=== PATIENT | female | born 1940 | race Caucasian/White ===

== ENCOUNTER 2019-12-14 15:22 | Outpatient (CLI) | payer MEDICARE, SELFPAY ==
--- NOTE | ~2019-12-14 | MR_ITS ---
EXAMINATION: MR abdomen wo/w con DATE: 12/14/2019 15:45 INDICATION: Pancreatic cyst. Abdominal pain. TECHNIQUE: Magnetic resonance imaging (MRI) of the abdomen was performed without and with 15 mL Multi [place] intravenous contrast. Sequences included coronal T2-weighted FS FSE, coronal and axial FS FIEST A, axial T2-weighted FSE, coronal LAVA-flex, axial STIR FSE, axial DWI, axial dual-echo T1-weighted F SPGR, and axial LAVA. Postcontrast sequences included coronal LAVA-flex and a time course of axial LA VA. COMPARISON: Abdomen MRI 12/17/2017, CT abdomen and pelvis 01/25/2017 FINDINGS: The liver and spleen are normal. There are changes of cholecystectomy. There is a 1.7 x 1.3 x 2.0 cm cystic lesion in the head of the pancreas, stable from 01/25/2017. The adrenal glands are normal. Ther e is cortical thinning of right kidney. There are cysts in left kidney measuring up to 9 mm. There ar e no dilated loops of bowel. There are no pathologically enlarged lymph nodes. There is no free intra peritoneal fluid. IMPRESSION: 1. 2.0 cm cystic lesion of the pancreas, stable from 01/25/2017. The differential diagnosis includes p seudocyst, intraductal papillary mucinous neoplasm (IPMN), mucinous cystic neoplasm (MCN), serous cys tadenoma, and neuroendocrine tumor. Abdomen MRI without and with contrast is recommended in one year. Reviewed, dictated and finalized at location A. 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 2.0 cm cystic lesion of the pancreas, stable from 01/25/2017. The differentia l diagnosis includes pseudocyst, intraductal papillary mucinous neoplasm (IPMN) , mucinous cystic neoplasm (MCN), serous cystadenoma, and neuroendocrine tumor. Abdomen MRI without and with contrast is recommended in one year.
[2019-12-14 14:55] LABS: Blood Urea Nitrogen 19 mg/dL (8-26); Estimated Glomerular Filt Rate > 60
== END 2019-12-14 15:23 | disposition home or self-care (01) ==
PROVIDERS: PCP Family Medicine; Visit Provider Internal Medicine Gastroenterology
DX: K86.2 Cyst of pancreas (principal)
CPT/HCPCS: 74183; A9577

== ENCOUNTER 2019-12-21 01:11 | Day surgery (SDC) | payer MEDICARE, SELFPAY ==
[2019-12-20 13:58] VITALS: BMI 25.9
[2019-12-21 06:59] VITALS: BP 142/61; PULSE 75; RESP 20; TEMP 36.1; O2SAT 98
[2019-12-21] MEDS: LACTATED RINGERS 1,000 ML 150 ML IV CONT (07:23)
--- NOTE | 2019-12-21 07:25 | WPDANESEPPF ---
Anes - Initial Pre Proc Eval Procedure: Operation Date: 12/21/19 08:00 Proposed Procedures p Screening Colonoscopy - Tono Smith MD Date/Time: 12/21/19 07:25 Surgeon: Tono Smith MD Pre Op Diagnosis: neoplasm screening Patient Data Age: 79 Gender: F Height: 5 ft 7 in Weight: 74.7 kg Last Vital Signs Temp 36.1 C L 12/21/19 06:59 Pulse 75 12/21/19 06:59 Resp 20 12/21/19 06:59 BP 142/61 H 12/21/19 06:59 Pulse Ox 98 12/21/19 06:59 Allergies Allergy/AdvReac Type Severity Reaction Status Date / Time meperidine Allergy Severe stroke Verified 12/21/19 06:56 like sx morphine Allergy Unknown confusion Verified 12/21/19 06:56 Home Medications Medication Instructions Recorded Confirmed Type aspirin 81 mg tablet,delayed 81 mg PO DAILY 09/20/19 12/21/19 History release levothyroxine 100 mcg tablet 100 mcg PO DAILY 09/20/19 12/21/19 History metaxalone 800 mg tablet 800 mg PO TID 09/20/19 12/21/19 History Patient hx anesthesia problems: none Family hx anesthesia problems: none PMFSH Past Medical History Medical History Allergic rhinitis Chronic sinusitis Hiatal hernia without gangrene and obstruction History of cerebrovascular accident (CVA) involving cerebellum Mixed hyperlipidemia Muscle spasm of back Muscle spasms of both lower extremities Other chronic pain Pancreatic cyst Postoperative hypothyroidism Surgical History Surgical History History of bilateral hip replacements History of cholecystectomy History of discectomy History of fusion of cervical spine History of lumbar fusion History of right knee joint replacement History of thyroidectomy, total Family History Family History Father Family history of tuberculosis, Onset Age: 72 Patient's father is Mother Hypertension Family history of elevated blood lipids Family history of cardiomyopathy Other Cerebrovascular accident Diabetes mellitus Social History Social History Smoking status: Never smoker Alcohol intake: never Substance use: never Substance use type: does not use Anes - Eval Final PreProcedure Day of Procedure 12/21/19 07:25 Patient weight: overweight Heart: regular rate and rhythm Lungs: clear to auscultation Airway: Mallampati scale class II and special considerations poor extension Neurological: alert and oriented Last oral intake: >/= 8 hours ASA classification: III Informed Consent: The patient's anesthetic plan and its attendant risks and benefits were discussed with the patient/family/POA. Questions were solicited and answers provided to the satisfaction of the patient/family/POA.
--- NOTE | 2019-12-21 07:25 | PM.HPGS ---
History of Present Illness History of Present Illness Consent: Risks, benefits, and alternatives have been discussed and questions answered. Patient agrees to proceed with procedure. Chief complaint: neoplasm screening Narrative: Neha Bliss is a 79 year old female with a family history of colon cancer. Her sister recently passed from colon cancer [facility] Past Medical History Medical History Allergic rhinitis Chronic sinusitis Hiatal hernia without gangrene and obstruction History of cerebrovascular accident (CVA) involving cerebellum Mixed hyperlipidemia Muscle spasm of back Muscle spasms of both lower extremities Other chronic pain Pancreatic cyst Postoperative hypothyroidism Surgical History Surgical History History of bilateral hip replacements History of cholecystectomy History of discectomy History of fusion of cervical spine History of lumbar fusion History of right knee joint replacement History of thyroidectomy, total Family History Family History Father Family history of tuberculosis, Onset Age: 72 Patient's father is Mother Hypertension Family history of elevated blood lipids Family history of cardiomyopathy Other Cerebrovascular accident Diabetes mellitus Social History Social History Smoking status: Never smoker Alcohol intake: never Substance use: never Substance use type: does not use Meds Home Medications and Allergies Home Medications Medication Instructions Recorded Confirmed Type aspirin 81 mg tablet,delayed 81 mg PO DAILY 09/20/19 12/21/19 History release levothyroxine 100 mcg tablet 100 mcg PO DAILY 09/20/19 12/21/19 History metaxalone 800 mg tablet 800 mg PO TID 09/20/19 12/21/19 History Allergies Allergy/AdvReac Type Severity Reaction Status Date / Time meperidine Allergy Severe stroke Verified 12/21/19 06:56 like sx morphine Allergy Unknown confusion Verified 12/21/19 06:56 Vital Signs Vital Signs - 24 hr 12/21/19 06:59 Temperature 36.1 C L Pulse Rate 75 Respiratory Rate 20 Blood Pressure 142/61 H Pulse Oximetry 98 Exam Const: General: alert Orientation/consciousness: patient oriented x3 Resp: Auscultation: clear to auscultation bilaterally Cardio: Rhythm: regular rhythm GI: GI Palp: Yes abdominal tenderness (In left upper quadrant) and Yes Soft to palpation Neuro: General: patient oriented x3 Assessment and Plan Assessment and plan (1) Family history of colon cancer: Code(s): Z80.0 - Family history of malignant neoplasm of digestive organs Status: Acute Assessment and Plan: Colonoscopy with possible biopsy or polypectomy or cautery or injection of substances.
[2019-12-21 08:12] VITALS: BP 106/52; PULSE 67; RESP 20; O2SAT 97
[2019-12-21 08:22] VITALS: BP 118/60; PULSE 64; RESP 20; O2SAT 100
[2019-12-21 08:32] VITALS: BP 101/52; PULSE 64; RESP 20; O2SAT 100
== END 2019-12-21 08:36 | disposition home or self-care (01) ==
PROVIDERS: PCP Family Medicine; Visit Provider Internal Medicine Gastroenterology
PROC: 0DJD8ZZ Inspection of Lower Intestinal Tract, Via Natural or Artificial Opening Endoscopic (ICD-10-PCS; CPT 45378; principal; 2019-12-21 08:00)
DX: Z12.11 Encounter for screening for malignant neoplasm of colon (principal); Z80.0 Family history of malignant neoplasm of digestive organs; E78.2 Mixed hyperlipidemia; E89.0 Postprocedural hypothyroidism; G89.29 Other chronic pain; Z86.73 Personal history of transient ischemic attack (TIA), and cerebral infarction without residual deficits; Z79.82 Long term (current) use of aspirin; Z98.1 Arthrodesis status
CPT/HCPCS: G0105; J2704; J7120

== ENCOUNTER 2021-01-30 07:30 | Outpatient (CLI) | payer MEDICARE, SELFPAY ==
--- NOTE | ~2021-01-30 | CT_ITS ---
EXAMINATION: CT abdomen wo/w con DATE: 01/30/2021 08:26 INDICATION: Left upper quadrant abdominal pain. Pancreatic cyst. TECHNIQUE: Computed tomography (CT) of the abdomen was performed without intravenous contrast. Automa finesse exposure control and iterative reconstruction technique were employed. Exam dose: 970.01 mGy-cm total exam DLP. COMPARISON: 01/25/2017 CT abdomen pelvis FINDINGS: Interval decreased size of pancreatic head cystic lesion, currently measuring up to approxi mately 2.1 x 1.5 cm maximal dimension compared to 2.6 x 1.6 cm on 01/25/2017. Mild cardiomegaly. No pericardial or pleural effusion. Fat-containing right foramen of Bochdalek hernia. Small sliding hiatal hernia. Status post cholecystectomy. The liver, spleen, and adrenal glands are unremarkable. Left parapelvic renal cyst. No urinary tract calculus or hydroureteronephrosis is detected. Diffuse atherosclerotic calcification but normal caliber of the abdominal aorta. No intraperitoneal o r retroperitoneal mass lesion or adenopathy or ascites. There is surgical fusion at T10-T12. There is severe degenerative disc disease and mild retrolisthesis at L1-2. There is severe degenerati ve disc disease and minimal retrolisthesis at L4-5. IMPRESSION: Decreased size of pancreatic cystic lesion since 01/25/2017 Cardiomegaly Status post cholecystectomy Reviewed, dictated and finalized at [facility]. Reviewed, dictated and finalized at location A.
== END 2021-01-30 07:31 | disposition home or self-care (01) ==
PROVIDERS: PCP Family Medicine; Visit Provider Physician Assistant
DX: K76.89 Other specified diseases of liver (principal); K86.2 Cyst of pancreas; R10.12 Left upper quadrant pain; Z90.49 Acquired absence of other specified parts of digestive tract; I51.7 Cardiomegaly
CPT/HCPCS: 74170; Q9967

== ENCOUNTER → 2021-02-21 02:50 | Outpatient (CLI) | payer MEDICARE, SELFPAY ==
[2021-02-21 19:43] LABS: SARS-CoV-2 RNA PCR Negative
== END ==
PROVIDERS: PCP Family Medicine; Visit Provider Internal Medicine Gastroenterology
DX: Z01.812 Encounter for preprocedural laboratory examination (principal); Z20.822 Contact with and (suspected) exposure to COVID-19
CPT/HCPCS: C9803; U0003; U0005

== ENCOUNTER 2021-02-24 00:20 | Day surgery (SDC) | payer MEDICARE, SELFPAY ==
[2021-02-16 13:56] VITALS: BMI 27.9
[2021-02-24 07:58] VITALS: BMI 27.8
[2021-02-24] MEDS: LACTATED RINGERS 1,000 ML 150 ML IV CONT (08:00)
--- NOTE | 2021-02-24 08:23 | PM.HPGS ---
History of Present Illness History of Present Illness Consent: Risks, benefits, and alternatives have been discussed and questions answered. Patient agrees to proceed with procedure. Chief complaint: GERD, left upper quadrant pain Narrative: Kar Bliss is a 80 year old female who has had great deal of difficulty with her upper abdomen for the past 2 months. Some her symptoms remind her of when she had H pylori gastritis a few years ago. What is different however is that she gets a fold as almost like an expanded feeling that begins in the epigastric area and left upper quadrant. Will radiate around the thorax towards the back. At times her chest is tender. She feels better lying flat. The discomfort will also radiate down to her lower abdomen occasionally. She cannot finish a meal although she has not lost weight. A CT scan did not show anything significant. She does have a stable small pancreatic cyst. Treatment for acid reflux did not help Review of Systems Review of Systems: All systems reviewed & are unremarkable except as noted in HPI and below PMFSH Past Medical History Medical History (Updated 02/24/21 @ 08:25 by Tono Smith MD) Allergic rhinitis Chronic sinusitis Hiatal hernia without gangrene and obstruction History of cerebrovascular accident (CVA) involving cerebellum Mixed hyperlipidemia Muscle spasm of back Muscle spasms of both lower extremities Other chronic pain Pancreatic cyst Postoperative hypothyroidism Surgical History Surgical History History of bilateral hip replacements History of cholecystectomy History of discectomy History of fusion of cervical spine History of lumbar fusion History of right knee joint replacement History of thyroidectomy, total Family History Family History Father Family history of tuberculosis, Onset Age: 72 Patient's father is Mother Hypertension Family history of elevated blood lipids Family history of cardiomyopathy Other Cerebrovascular accident Diabetes mellitus Social History Social History Social History: Smoking status: Former smoker Second hand tobacco smoke exposure: No Alcohol intake: never Substance use: never Substance use type: does not use Living arrangements: alone Gender identity (if verbalized by the patient): Female Spiritual care concerns: No Meds Home Medications and Allergies Home Medications Medication Instructions Recorded Confirmed Type aspirin 81 mg tablet,delayed 81 mg PO DAILY 09/20/19 02/24/21 History release levothyroxine 100 mcg tablet 100 mcg PO DAILY #90 tablet 09/15/20 02/24/21 Rx famotidine 40 mg tablet 40 mg PO DAILY #30 tablet 01/26/21 02/24/21 Rx cetirizine [Zyrtec] 10 mg PO DAILY 02/16/21 02/24/21 History Allergies Allergy/AdvReac Type Severity Reaction Status Date / Time meperidine Allergy Severe stroke Verified 02/24/21 07:57 like sx morphine Allergy Unknown confusion Verified 02/24/21 07:57 Exam Resp: Auscultation: clear to auscultation bilaterally Cardio: Rate: regular rate Rhythm: regular rhythm GI: GI Palp: Yes Soft to palpation and No Tenderness to palpation present (GI) Assessment and Plan Assessment and plan (1) Epigastric pain: Code(s): R10.13 - Epigastric pain Status: Acute Assessment and Plan: EGD with possible biopsy or dilatation or cautery.
--- NOTE | 2021-02-24 08:32 | WPDANESEPPF ---
Anes - Initial Pre Proc Eval Procedure: Operation Date: 02/24/21 09:00 Proposed Procedures p Esophagogastroduodenoscopy - Tono Smith MD Date/Time: 02/24/21 08:32 Surgeon: Tono Smith MD Pre Op Diagnosis: GERD, left upper quadrant pain Patient Data Age: 80 Gender: F Height: 5 ft 7 in Weight: 80.7 kg Allergies Allergy/AdvReac Type Severity Reaction Status Date / Time meperidine Allergy Severe stroke Verified 02/24/21 07:57 like sx morphine Allergy Unknown confusion Verified 02/24/21 07:57 Home Medications Medication Instructions Recorded Confirmed Type aspirin 81 mg tablet,delayed 81 mg PO DAILY 09/20/19 02/24/21 History release levothyroxine 100 mcg tablet 100 mcg PO DAILY #90 tablet 09/15/20 02/24/21 Rx famotidine 40 mg tablet 40 mg PO DAILY #30 tablet 01/26/21 02/24/21 Rx cetirizine [Zyrtec] 10 mg PO DAILY 02/16/21 02/24/21 History Patient hx anesthesia problems: none Family hx anesthesia problems: none PMFSH Past Medical History Medical History (Updated 02/24/21 @ 08:25 by Tono Smith MD) Allergic rhinitis Chronic sinusitis Hiatal hernia without gangrene and obstruction History of cerebrovascular accident (CVA) involving cerebellum Mixed hyperlipidemia Muscle spasm of back Muscle spasms of both lower extremities Other chronic pain Pancreatic cyst Postoperative hypothyroidism Surgical History Surgical History History of bilateral hip replacements History of cholecystectomy History of discectomy History of fusion of cervical spine History of lumbar fusion History of right knee joint replacement History of thyroidectomy, total Family History Family History Father Family history of tuberculosis, Onset Age: 72 Patient's father is Mother Hypertension Family history of elevated blood lipids Family history of cardiomyopathy Other Cerebrovascular accident Diabetes mellitus Social History Social History Social History: Smoking status: Former smoker Second hand tobacco smoke exposure: No Alcohol intake: never Substance use: never Substance use type: does not use Living arrangements: alone Gender identity (if verbalized by the patient): Female Spiritual care concerns: No Anes - Eval Final PreProcedure Day of Procedure 02/24/21 08:32 Patient weight: normal Heart: regular rate and rhythm Lungs: clear to auscultation Airway: Mallampati scale class III Neurological: alert and oriented Last oral intake: >/= 8 hours ASA classification: III Emergent: no Anesthetic plan: proceed Anesthesia type and monitoring: general GIVS and standard monitoring Informed Consent: The patient's anesthetic plan and its attendant risks and benefits were discussed with the patient/family/POA. Questions were solicited and answers provided to the satisfaction of the patient/family/POA.
[2021-02-24 09:13] VITALS: BP 133/64; PULSE 61; RESP 22; O2SAT 98
[2021-02-24 09:23] VITALS: BP 141/56; PULSE 61; RESP 22; O2SAT 98
[2021-02-24 09:33] VITALS: BP 143/66; PULSE 61; RESP 15; O2SAT 100
== END 2021-02-24 10:00 | disposition home or self-care (01) ==
PROVIDERS: PCP Family Medicine; Visit Provider Internal Medicine Gastroenterology
PROC: 0DJ08ZZ Inspection of Upper Intestinal Tract, Via Natural or Artificial Opening Endoscopic (ICD-10-PCS; CPT 43235; principal; 2021-02-24 09:00)
DX: K22.70 Barrett's esophagus without dysplasia (principal); K21.00 Gastro-esophageal reflux disease with esophagitis, without bleeding; E78.2 Mixed hyperlipidemia; E89.0 Postprocedural hypothyroidism; Z86.73 Personal history of transient ischemic attack (TIA), and cerebral infarction without residual deficits; Z98.1 Arthrodesis status; Z87.891 Personal history of nicotine dependence; Z79.82 Long term (current) use of aspirin
CPT/HCPCS: 43239; 87081; 88305; 88313; J2704; J7120

== ENCOUNTER 2021-03-21 10:20 | Outpatient (CLI) | payer MEDICARE, SELFPAY ==
--- NOTE | ~2021-03-21 | XR_ITS ---
XR hip BI 2V w AP pelvis DATE: 03/21/2021 10:48 INDICATION: Pain, gait/mobility disturbance TECHNIQUE: AP pelvis. AP and lateral views of each hip. COMPARISON: 01/25/2017 CT abdomen pelvis FINDINGS: Status post bilateral total hip arthroplasty. No fracture or dislocation of either hip is n oted. Severe degenerative disc disease at L4-5 and L5-S1. The pubic symphysis and sacroiliac joints are intact. No pelvic fracture or bone destruction is evident. IMPRESSION: Bilateral total hip arthroplasty Severe degenerative disc disease at L4-5 and L5-S1 Reviewed, dictated and finalized at location A.
== END 2021-03-21 10:21 | disposition home or self-care (01) ==
PROVIDERS: PCP Family Medicine; Visit Provider Family Medicine
DX: R26.9 Unspecified abnormalities of gait and mobility (principal); M25.559 Pain in unspecified hip; Z96.643 Presence of artificial hip joint, bilateral; M51.37 Other intervertebral disc degeneration, lumbosacral region
CPT/HCPCS: 73521

== ENCOUNTER 2021-05-15 12:15 | Outpatient (CLI) | payer MEDICARE, SELFPAY ==
--- NOTE | ~2021-05-15 | MR_ITS ---
EXAMINATION: MR lumbar spine wo [facility] EXAM DATE: 05/15/2021 14:16 INDICATION: M48.062 - Spinal stenosis, lumbar region with neurogenic claudication. TECHNIQUE: Multi-sequential, multiplanar MR images of the lumbar spine were obtained without contrast . Sagittal T1, T2, T2 fat saturation images. Axial T2 weighted images. There is no prior study for comparison. FINDINGS: Lower thoracic fusion hardware. The conus medullaris terminates at the L1 level and has nor mal signal intensity and morphology. Moderate loss of the T12-L1 disc height, moderate to severe at L1-2 with degenerative disc disease. Moderate loss of the L4-5 and L5-S1 disc height. There is 3 mm r etrolisthesis L1 on L2. The vertebral bodies are otherwise aligned. There are no focal marrow signal abnormalities suspicious for malignancy or acute fracture. Paraspinal soft tissue is unremarkable. Level by level evaluation: T12-L1: There is a mild diffuse disc bulge. Facet arthropathy: Mild. Neural foraminal stenosis: No stenosis. Central canal stenosis: No stenosis. L1-L2: There is a mild to moderate diffuse disc bulge. Facet arthropathy: Mild to moderate. Neural foraminal stenosis: Mild to moderate bilateral. Central canal stenosis: No stenosis. L2-L3: There is a mild diffuse disc bulge. Facet arthropathy: Mild to moderate. Neural foraminal stenosis: Mild bilateral. Central canal stenosis: No stenosis. L3-L4: There is a mild diffuse disc bulge. Facet arthropathy: Moderate. Neural foraminal stenosis: Mild to moderate right, mild left. Central canal stenosis: No stenosis. L4-L5: There is a mild diffuse disc bulge. Facet arthropathy: Mild to moderate. Neural foraminal stenosis: Moderate bilateral. Central canal stenosis: Mild, probable right hemilaminotomy. L5-S1: There is a mild diffuse disc bulge. Facet arthropathy: Moderate right, mild to moderate left. Neural foraminal stenosis: Moderate right, mild to moderate left. Central canal stenosis: No stenosis. IMPRESSION: 1. Lumbar spondylosis as detailed above. Reviewed, dictated and finalized at location B.
--- NOTE | ~2021-05-15 | MR_ITS ---
EXAMINATION: MR cervical spine wo con EXAM DATE: 05/15/2021 14:16 INDICATION: M48.02 - Spinal stenosis, cervical region. TECHNIQUE: Multi-sequential, multiplanar MR images of the cervical spine were obtained without contra st. Axial T2, axial T2 MERGE sequence. Sagittal T1, T2, T2 fat saturation images also obtained. Th ere is no prior study for comparison. FINDINGS: There is fusion of C6 and 7 vertebral bodies. There is 2 mm anterolisthesis C7 on T1, 2 mm retrolisthesis C5 on C6. Moderate to severe loss of the C5-6 disc height, mild at C4-5 and C7-T1. Th e spinal cord signal intensity and intrinsic morphology is normal. Cervicomedullary junction is rylee l in appearance. There are no suspicious marrow signal abnormalities. Paraspinal soft tissue is unrem arkable. Level by level evaluation: C2-C3: Disc does not extend beyond the endplate margin. Uncovertebral joint arthropathy: None. Facet joint arthropathy: Moderate left, mild to moderate right. Neural foraminal stenosis: No stenosis. Central canal stenosis: No stenosis. C3-C4: There is a mild diffuse disc bulge. Uncovertebral joint arthropathy: Minimal right. Facet joint arthropathy: Moderate to severe right, moderate left. Neural foraminal stenosis: Mild right. Central canal stenosis: No stenosis. C4-C5: There is a minimal diffuse disc bulge. Uncovertebral joint arthropathy: None. Facet joint arthropathy: Severe right, mild to moderate left. Neural foraminal stenosis: Minimal right. Central canal stenosis: No stenosis. C5-C6: There is a mild diffuse disc bulge. Uncovertebral joint arthropathy: Moderate to severe left, moderate right. Facet joint arthropathy: Moderate bilateral. Neural foraminal stenosis: Moderate right, mild to moderate left. Central canal stenosis: Mild. C6-C7: This level is fused. Uncovertebral joint arthropathy: None. Facet joint arthropathy: Mild. Neural foraminal stenosis: No stenosis. Central canal stenosis: No stenosis. C7-T1: There is a minimal diffuse disc bulge. Uncovertebral joint arthropathy: Mild to moderate left, mild right. Facet joint arthropathy: Moderate to severe right, moderate left. Neural foraminal stenosis: No stenosis. Central canal stenosis: No stenosis. IMPRESSION: 1. Cervical spondylosis most advanced C5-6. 2. C6-7 vertebral body osseous fusion. Reviewed, dictated and finalized at location B.
--- NOTE | ~2021-05-15 | MR_ITS ---
EXAMINATION: MR thoracic spine wo con EXAM DATE: 05/15/2021 14:16 INDICATION: M48.04 - Spinal stenosis, thoracic region. TECHNIQUE: Multi-sequential, multiplanar MR images of the thoracic spine were obtained without contra st. Sagittal T1, T2, T2 fat saturation, axial T2 weighted images reviewed. Correlation is made to CT thoracic spine 12/14/2011. FINDINGS: Hardware T10-T12 causing metallic artifact. There are no suspicious marrow signal abnormali ties. There is 2 mm anterolisthesis C7 on T1 and T1 on T2. The vertebral bodies are otherwise aligned in the AP dimension. The spinal cord signal intensity and intrinsic morphology is normal. There is m ild thoracic disc disease. There is mild to moderate thoracic facet arthropathy. No more than mild n eural foraminal stenosis at any given level. Paraspinal soft tissue is unremarkable. IMPRESSION: 1. Fusion hardware T10-T12. 2. Mild thoracic spondylosis. Reviewed, dictated and finalized at location B.
== END 2021-05-15 12:16 | disposition home or self-care (01) ==
PROVIDERS: PCP Family Medicine; Visit Provider Orthopaedic Surgery
DX: M48.02 Spinal stenosis, cervical region (principal); M48.062 Spinal stenosis, lumbar region with neurogenic claudication; M48.04 Spinal stenosis, thoracic region; M47.896 Other spondylosis, lumbar region; M47.892 Other spondylosis, cervical region; Z98.1 Arthrodesis status; M47.894 Other spondylosis, thoracic region
CPT/HCPCS: 72141; 72146; 72148

== ENCOUNTER 2021-08-07 09:32 | Emergency (ER) | payer MEDICARE, SELFPAY ==
[2021-08-07 09:42] VITALS: BP 121/63; PULSE 85; RESP 16; TEMP 36.7; O2SAT 98
--- NOTE | 2021-08-07 11:05 | ED.GENADULT ---
HPI - General Adult General Chief complaint: Dizziness Stated complaint: dizziness/pain in back Time Seen by Provider: 08/07/21 10:52 Source: patient, family and RN notes reviewed Mode of arrival: ambulatory Limitations: no limitations History of Present Illness HPI narrative: Patient presents today complaining of pain to her left thoracic spine that started this morning. States the pain only lasted for less than 10 minutes, but while she was experiencing the pain she states that it led to some dizziness, shakiness, and shortness of breath. During this time while she was experiencing the symptoms she called her daughter to come take her in for evaluation. She does not currently have any dizziness, shakiness, or shortness of breath, and states her pain persists, but less than it was earlier. Patient does have chronic back pain for which she sees a pain clinic. She does have a muscle relaxer at home, but has taken none today. She typically takes Tylenol for her back pain as well, but has taken none today. She also has a heating pad and ice packs at home, but has used none today. Movement of her neck has no effect on her back pain. The back pain is in a very specific area of her thoracic spine. MD complaint: Back pain Related Data Home Medications Medication Instructions Recorded Confirmed aspirin 81 mg tablet,delayed 81 mg PO DAILY 09/20/19 08/07/21 release levothyroxine 100 mcg capsule 100 mcg PO DAILY 04/28/21 08/07/21 Allergies Allergy/AdvReac Type Severity Reaction Status Date / Time meperidine Allergy Severe stroke Verified 08/07/21 09:35 like sx morphine Allergy Unknown confusion Verified 08/07/21 09:35 Review of Systems Review of Systems: CONSTITUTIONAL: Denies body aches, fever, chills, or sweats. EYES: Denies visual changes, redness, or discharge. ENT: Denies rhinorrhea, congestion, sore throat, or otalgia. CARDIOVASCULAR: Denies chest pain, palpitations, or edema. RESPIRATORY: Denies cough. + Shortness of breath?resolved GASTROINTESTINAL: Denies abdominal pain, nausea, vomiting, or diarrhea. GENITOURINARY: Denies dysuria or hematuria. SKIN: Denies rash, itching, or wounds. MUSCULOSKELETAL: Denies joint pain, or myalgia.+ Left mid back pain NEUROLOGIC: Denies headache, numbness, tingling, or weakness.+ Dizziness?resolved PSYCH: Denies depression or anxiety. [facility] Past Medical History Medical History Abnormality of gait Allergic rhinitis Bronchitis Chronic sinusitis Chronic sinusitis Cough Debility Epigastric pain Family history of colon cancer Gastritis Hiatal hernia without gangrene and obstruction History of cerebrovascular accident (CVA) involving cerebellum Hypothyroidism (acquired) LUQ abdominal pain Mixed hyperlipidemia Muscle spasm of back Muscle spasms of both lower extremities Other chronic pain Pancreatic cyst Postoperative hypothyroidism Subacute sinusitis Surgical History Surgical History History of bilateral hip replacements History of cholecystectomy History of discectomy History of fusion of cervical spine History of lumbar fusion History of right knee joint replacement History of thyroidectomy, total Family History Family History Father Family history of tuberculosis, Onset Age: 72 Patient's father is Mother Hypertension Family history of elevated blood lipids Family history of cardiomyopathy Other Cerebrovascular accident Diabetes mellitus Social History Social History Social History: Smoking status: Former smoker Second hand tobacco smoke exposure: No Alcohol intake: never Substance use: never Substance use type: does not use Gender identity (if verbalized by the patient):
== END 2021-08-07 11:12 | disposition home or self-care (01) ==
PROVIDERS: Emergency Provider Nurse Practitioner; PCP Family Medicine
DX: M62.830 Muscle spasm of back (principal); Z87.891 Personal history of nicotine dependence; Z86.73 Personal history of transient ischemic attack (TIA), and cerebral infarction without residual deficits; E03.9 Hypothyroidism, unspecified; E78.2 Mixed hyperlipidemia; Z96.653 Presence of artificial knee joint, bilateral; Z96.643 Presence of artificial hip joint, bilateral
CPT/HCPCS: 99212; G0463

== ENCOUNTER 2021-08-12 11:08 | Emergency (ER) | payer MEDICARE, SELFPAY ==
--- NOTE | ~2021-08-12 | CT_ITS ---
EXAMINATION: Lesvia Lagos MD DATE: 08/12/2021 15:52 INDICATION: Back pain radiating to the chest. TECHNIQUE: Computed tomographic angiography (CTA) of the chest, abdomen, and pelvis was performed wit h 100 mL Omnipaque-350 intravenous contrast. Automated exposure control and iterative reconstruction technique were employed. The dose-length product was 958.05 mGy-cm. Maximum intensity projection 3D-r econstructions of the aorta and other arteries were constructed by the technologist on a separate wor kstation. COMPARISON: CT abdomen 01/30/2021, CT abdomen and pelvis 01/25/17 FINDINGS: CHEST CTA: There is mild scarring at the lung apices. There is mild atelectasis bilaterally. No pleural effusion . There is a 13 mm nodule in right thyroid lobe, likely not clinically significant. Cardiomegaly is n oted. No pericardial effusion. The central pulmonary arteries are enlarged, consistent with pulmonary arterial hypertension. There is no pulmonary embolus. Thoracic aorta is normal in caliber. There is mild aortic atherosclerosis. There is severe lower thoracic spondylosis. There are changes of anterio r fusion procedure from T10 to T12 with left-sided plate and screws. ABDOMEN AND PELVIS CTA: The liver and spleen are normal. There are changes of cholecystectomy. There is a 17 mm cystic lesion in the head of the pancreas, stable from 01/25/2017, likely benign. The adrenal glands are normal. Th ere is cortical thinning of the kidneys. There are cysts in left kidney including peripelvic cysts me asuring up to 2.0 cm. There are no dilated loops of bowel. The appendix is normal. There is a small s liding hiatal hernia. There is no significant stenosis of superior mesenteric artery or the renal art eries. 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 Ther e is no significant stenosis of the inferior mesenteric artery. Abdominal aorta is normal in caliber and demonstrates mild atherosclerosis. No dissection. There are no pathologically enlarged lymph node s. There is no free intraperitoneal fluid. There are bilateral total hip arthroplasties. There is sev ere lumbar spondylosis. IMPRESSION: 1. Mild aortic atherosclerosis. No aneurysm or dissection. 2. Severe thoracic and lumbar spondylosis. 3. Small sliding hiatal hernia. Reviewed, dictated and finalized at location A.
--- NOTE | ~2021-08-12 | CT_ITS ---
EXAMINATION: CT brain wo con DATE: 08/12/2021 15:51 INDICATION: Dizziness. TECHNIQUE: Computed tomography (CT) of the head was performed without intravenous contrast. The mA wa s adjusted according to patient size. Iterative reconstruction technique was employed. The dose-lengt h product was 605.33 mGy-cm. COMPARISON: Head CT 02/03/2017 FINDINGS: There are small old infarcts in the cerebellum bilaterally. There is no intracranial hemorr quin, acute infarction, or abnormal intracranial mass lesion. The ventricles are normal in size. Ther e are likely changes of ocular lens replacement surgeries. There is mild mucosal thickening in the pa ranasal sinuses. The mastoid air cells are normal. IMPRESSION: 1. Small old infarcts in the cerebellum. Reviewed, dictated and finalized at location A.
[2021-08-12 11:14] VITALS: BP 140/64; PULSE 94; RESP 18; TEMP 37; O2SAT 99
--- NOTE | 2021-08-12 12:01 | ECG_ITS ---
Measurements Intervals [facility] Rate: 85 P: 57 [place]: 138 QRS: -9 QRSD: 99 T: 6 QT: 342 QTc: 409 Interpretive Statements SINUS RHYTHM POSSIBLE LEFT ATRIAL ENLARGEMENT INCOMPLETE RIGHT BUNDLE BRANCH BLOCK LEFT VENTRICULAR HYPERTROPHY BORDERLINE ECG Electronically Signed On 08-12-2021 12:14:03 CDT by Jamel Caal D.O.
[2021-08-12 12:17] LABS: Basophils Absolute Auto 0.1 K/mm3 (0.0-0.1); Eosinophils Absolute Auto 0.3 K/mm3 (0-0.3); Eosinophils Percent Auto 4.7 % (0-4.4); Hematocrit 39.6 % (37.0-47.0); Hemoglobin 12.7 g/dL (12.0-15.0); Immature Granulocyte Absolute 0.02 K/mm3 (0.00-0.031); Immature Granulocyte Percent A 0.3 % (0-0.5); Lymphocytes Absolute Auto 1.33 K/mm3 (0.9-3.2); Lymphocytes Percent Auto 18.8 % (18.3-44.2); Mean Corpuscular HGB Conc 32.1 g/dl (32-36); Mean Corpuscular Hemoglobin 30.2 pg (26-34); Mean Corpuscular Volume 94.1 fl (80-100); Mean Platelet Volume 10.4 fl (7.4-10.4); Monocytes Absolute Auto 0.5 K/mm3 (0.1-0.6); Monocytes Percent Auto 6.6 % (2.6-8.5); Neutrophils Absolute Auto 4.9 K/mm3 (1.3-6.7); Neutrophils Percent Auto 68.6 % (45.5-73.1); Platelet Count Result 241 k/mm3 (150-375); Red Blood Count 4.21 M/mm3 (4.2-5.4); Red Cell Distribution Width 13.9 % (11.5-14.5); White Blood Count 7.1 K/mm3 (4.5-10.0)
[2021-08-12 12:29] LABS: Anion Gap 8 mmol/L (8-16); Blood Urea Nitrogen 23 mg/dL (7-17); Calcium 9.9 mg/dL (8.4-10.2); Carbon Dioxide 27 mmol/L (22-30); Chloride 104 mmol/L (98-107); Estimated CRCL calculation 48 ml/min; Estimated Glomerular Filt Rate > 60; Glucose 114 mg/dL (65-110); Potassium 4.5 mmol/L (3.4-5.0); Sodium 139 mmol/L (137-145)
[2021-08-12 14:05] VITALS: BP 142/95; PULSE 90; RESP 16; O2SAT 100
[2021-08-12 14:15] VITALS: BP 162/86; PULSE 86
[2021-08-12 14:17] VITALS: BP 171/90; PULSE 94
[2021-08-12 14:18] VITALS: BP 143/76; PULSE 97
--- NOTE | 2021-08-12 14:58 | ED.DIZZY ---
HPI - Dizziness General Chief Complaint: Dizziness Stated Complaint: dizzy Time Seen by Provider: 08/12/21 14:06 Source: patient and RN notes reviewed Mode of arrival: ambulatory Limitations: no limitations History of Present Illness HPI Narrative: This is a 80 year old female who presents for evaluation of dizziness. Patient states she woke up with sudden onset of left thoracic back pain 1 week agol. Her pain continued so she went to [facility] on Tuesday. She states along with her back pain she also developed dizziness on Tuesday. She states her dizziness is worse when she wakes up and it seems to improve throughout the day. She is unable to describe her dizziness but she states she feels off. She states she was diagnosed with back spasm as the cause of her back pain. She has been treating her pain with muscle relaxer so she has improvement in her pain. She continues to have mild back pain that radiates to her chest. She denies nausea, vomiting, shortness of breath or cough. She denies double vision, focal weakness, numbness or tingling. She also denies difficulty ambulating or unsteady gait. She also notes that she has chronic headache describes as fog that has been present for 6 months. Related Data Home Medications Medication Instructions Recorded Confirmed aspirin 81 mg tablet,delayed 81 mg PO DAILY 09/20/19 08/07/21 release levothyroxine 100 mcg capsule 100 mcg PO DAILY 04/28/21 08/07/21 Allergies Allergy/AdvReac Type Severity Reaction Status Date / Time meperidine Allergy Severe stroke Verified 08/07/21 09:35 like sx morphine Allergy Unknown confusion Verified 08/07/21 09:35 Review of Systems Review of Systems: All systems reviewed & are unremarkable except as noted in HPI and below PMFSH Past Medical History Medical History Abnormality of gait Allergic rhinitis Bronchitis Chronic sinusitis Chronic sinusitis Cough Debility Epigastric pain Family history of colon cancer Gastritis Hiatal hernia without gangrene and obstruction History of cerebrovascular accident (CVA) involving cerebellum Hypothyroidism (acquired) LUQ abdominal pain Mixed hyperlipidemia Muscle spasm of back Muscle spasms of both lower extremities Other chronic pain Pancreatic cyst Postoperative hypothyroidism Subacute sinusitis Surgical History Surgical History History of bilateral hip replacements History of cholecystectomy History of discectomy History of fusion of cervical spine History of lumbar fusion History of right knee joint replacement History of thyroidectomy, total Family History Family History Father Family history of tuberculosis, Onset Age: 72 Patient's father is Mother Hypertension Family history of elevated blood lipids Family history of cardiomyopathy Other Cerebrovascular accident Diabetes mellitus Social History Social History Social History: Smoking status: Former smoker Second hand tobacco smoke exposure: No Alcohol intake: never Substance use: never Substance use type: does not use Gender identity (if verbalized by the patient): Female Sexual Orientation (if Verbalized by the Patient): Straight or Heterosexual Spiritual care concerns: No Exam Narrative: GENERAL: Well-appearing, well-nourished, and in no acute distress. HEAD: Normocephalic, atraumatic EYES: PERRLA and EOMI, conjunctiva clear without discharge EARS: TM's clear bilaterally without erythema or dullness NOSE: Nares clear, no rhinorrhea or epistaxis THROAT:Mucous membranes moist, Oropharynx normal without erythema, exudate, peritonsillar swelling or fluctuance NECK: Supple, without lymphadenopathy or mass RESPIRATORY:
[2021-08-12] MEDS: SODIUM CHLORIDE 0.9% IV 1,000 ML 999 ML IV CONT ×2 (15:20)
[2021-08-12 15:49] LABS: INR 0.9; Prothrombin Time 12.1 Seconds (11.1-14.7)
[2021-08-12 15:50] LABS: Partial Thromboplastin Time 25.3 SECONDS (22.3-36.8); Troponin I < 0.012 ng/mL (0.000-0.034)
--- NOTE | 2021-08-12 16:54 | PC.NURSE ---
pt up from stretcher without assist. pt ambulatory in room and reports she is at baseline gait. pt denies dizziness.
[2021-08-12 17:29] VITALS: BP 145/68; PULSE 88; RESP 16; O2SAT 100
== END 2021-08-12 17:30 | disposition home or self-care (01) ==
PROVIDERS: Emergency Provider General Practice; PCP Family Medicine
DX: R42 Dizziness and giddiness (principal); M54.6 Pain in thoracic spine; K44.9 Diaphragmatic hernia without obstruction or gangrene; E89.0 Postprocedural hypothyroidism; E78.2 Mixed hyperlipidemia; Z86.73 Personal history of transient ischemic attack (TIA), and cerebral infarction without residual deficits; Z79.82 Long term (current) use of aspirin; Z98.1 Arthrodesis status; Z96.643 Presence of artificial hip joint, bilateral; Z96.653 Presence of artificial knee joint, bilateral; Z87.891 Personal history of nicotine dependence; M47.816 Spondylosis without myelopathy or radiculopathy, lumbar region; M47.814 Spondylosis without myelopathy or radiculopathy, thoracic region; I45.10 Unspecified right bundle-branch block; I51.7 Cardiomegaly
CPT/HCPCS: 36415; 70450; 71275; 74174; 80048; 84484; 85025; 85610; 85730; 93005; 96360; 99284; J7030; Q9967

== ENCOUNTER 2021-08-28 10:27 | Outpatient (CLI) | payer MEDICARE, SELFPAY ==
--- NOTE | ~2021-08-28 | US_ITS ---
EXAMINATION: US carotid duplex BI DATE: 08/28/2021 13:25 INDICATION: Transient ischemic episode. Cerebral atherosclerosis. TECHNIQUE: Grayscale, color Doppler, and pulsed Doppler images of the cervical carotid arteries were obtained. The degree of vessel stenosis is placed in one of the following categories: normal, <50%, 5 0-69%, >=70% but less than near-occlusion, near-occlusion, or total occlusion. Note that percent sten osis relative to normal distal artery lumen diameter is indirectly measured from velocity measurement s as described by Timothy, et al. Radiology 2003; 229:340-346. COMPARISON: None. FINDINGS: RIGHT: The right common carotid artery (CCA) peak systolic velocity (PSV) is 101 cm/s. The right internal ca rotid artery (ICA) PSV is 130 cm/s with relatively smooth laminar flow with no significant broadening on spectral Doppler. The right ICA end-diastolic velocity (EDV) is 59 cm/s. The right ICA/CCA PSV ra hiren is 1.3. Grayscale and color Doppler images yield an estimate of <50% diameter reduction from mini mal plaque in the ICA. The external carotid artery (ECA) PSV is 95 cm/s. There is antegrade flow in t he right vertebral artery. LEFT: The left CCA PSV is 104 cm/s. The left ICA PSV is 131 cm/s with relatively smooth laminar flow with n o significant broadening on spectral Doppler. The left ICA EDV is 42 cm/s. The left ICA/CCA PSV ratio is 1.3. Grayscale and color Doppler images yield an estimate of <50% diameter reduction from minimal plaque in the ICA. The ECA PSV is 99 cm/s. There is antegrade flow in the left vertebral artery. IMPRESSION: 1. <50% stenosis from minimal plaque in the right internal carotid artery. 2. <50% stenosis from minimal plaque in the left internal carotid artery. Reviewed, dictated and finalized at location A.
== END 2021-08-28 10:28 | disposition home or self-care (01) ==
PROVIDERS: PCP Family Medicine; Visit Provider Family Medicine
DX: I65.23 Occlusion and stenosis of bilateral carotid arteries (principal)
CPT/HCPCS: 93880

== ENCOUNTER 2021-10-05 16:35 | Emergency (ER) | payer MEDICARE, SELFPAY ==
--- NOTE | ~2021-10-05 | XR_ITS ---
EXAMINATION: XR chest 2V EXAM DATE: 10/05/2021 17:10 INDICATION: Midsternal chest pain, shortness of breath. Abdominal pain. TECHNIQUE: Frontal and lateral projections of the chest obtained and reviewed. Comparison is made to prior examination from 06/30/2017. FINDINGS: The lungs are clear. There are no pleural effusions. The cardiomediastinal silhouette is within normal limits. There is no pneumothorax suspected. Lower lumbar fusion hardware. Some chroni c appearing hyperinflation. There are cholecystectomy clips. IMPRESSION: No acute cardiopulmonary findings. Reviewed, dictated and finalized at location A. LYST UNIT OPERATOR
--- NOTE | 2021-10-05 16:40 | ECG_ITS ---
Measurements Intervals [place] Rate: 89 P: 68 [place]: 137 QRS: 16 QRSD: 86 T: 42 QT: 345 QTc: 422 Interpretive Statements SINUS RHYTHM POSSIBLE LEFT ATRIAL ENLARGEMENT INCOMPLETE RIGHT BUNDLE BRANCH BLOCK BASELINE ARTIFACT- I, II, III, AVR, AVL, AVF BORDERLINE ECG Electronically Signed On 10-05-2021 20:35:08 MEDICAL LAB SPECIALIST by Jamel Caal D.O.
[2021-10-05 16:41] VITALS: BP 158/73; PULSE 87; RESP 18; TEMP 36.4; O2SAT 97
[2021-10-05 16:56] LABS: Basophils Absolute Auto 0.1 K/mm3 (0.0-0.1); Basophils Percent Auto 1.2 % (0.2-1.2); Eosinophils Absolute Auto 0.6 K/mm3 (0-0.3); Eosinophils Percent Auto 8.4 % (0-4.4); Hemoglobin 11.8 g/dL (12.0-15.0); Immature Granulocyte Absolute 0.02 K/mm3 (0.00-0.031); Immature Granulocyte Percent A 0.3 % (0-0.5); Lymphocytes Absolute Auto 1.66 K/mm3 (0.9-3.2); Lymphocytes Percent Auto 24.2 % (18.3-44.2); Mean Corpuscular HGB Conc 31.9 g/dl (32-36); Mean Corpuscular Hemoglobin 30.6 pg (26-34); Mean Corpuscular Volume 96.1 fl (80-100); Mean Platelet Volume 10.1 fl (7.4-10.4); Monocytes Absolute Auto 0.5 K/mm3 (0.1-0.6); Monocytes Percent Auto 7.6 % (2.6-8.5); Neutrophils Percent Auto 58.3 % (45.5-73.1); Platelet Count Result 229 k/mm3 (150-375); Red Blood Count 3.85 M/mm3 (4.2-5.4); Red Cell Distribution Width 14.4 % (11.5-14.5); White Blood Count 6.9 K/mm3 (4.5-10.0)
[2021-10-05 17:09] LABS: Alanine Aminotransferase 27 U/L (4-35); Albumin Level 4.5 g/dL (3.5-5.1); Alkaline Phosphatase 54 U/L (38-126); Anion Gap 6 mmol/L (8-16); Aspartate Amino Transferase 29 U/L (14-36); Bilirubin,Total 0.3 mg/dL (0.2-1.3); Blood Urea Nitrogen 17 mg/dL (7-17); Calcium 9.8 mg/dL (8.4-10.2); Carbon Dioxide 27 mmol/L (22-30); Chloride 99 mmol/L (98-107); Estimated CRCL calculation 46 ml/min; Estimated Glomerular Filt Rate 60; Glucose 124 mg/dL (65-110); Lipase 102 U/L (23-300); Potassium 4.3 mmol/L (3.4-5.0); Sodium 132 mmol/L (137-145)
[2021-10-05 17:13] LABS: INR 0.8; Prothrombin Time 11.5 Seconds (11.1-14.7)
[2021-10-05 17:14] LABS: Partial Thromboplastin Time 24.9 SECONDS (22.3-36.8)
[2021-10-05 17:20] LABS: Troponin I < 0.012 ng/mL (0.000-0.034)
[2021-10-05 20:31] VITALS: BP 148/71; PULSE 78; RESP 22; O2SAT 100
[2021-10-05 21:18] LABS: Troponin I < 0.012 ng/mL (0.000-0.034)
[2021-10-05 21:57] VITALS: BP 133/61; PULSE 79; RESP 16; O2SAT 100
--- NOTE | 2021-10-05 22:40 | ED.GENADULT ---
HPI - General Adult General Chief complaint: Chest Pain Stated complaint: Chest pain, Radiates to Back Time Seen by Provider: 10/05/21 20:24 History of Present Illness HPI narrative: Patient is a 81-year-old female presents the emergency department with chief complaint of chest pain. Patient reports that she had an episode of discomfort in her chest that radiated up into her neck. Patient states that afterwards she had a little bit of the discomfort and a twitchy sensation in her left arm afterwards. Patient states the discomfort has improved and essentially gone now. Patient reports has been having episodes of palpitations and has had a recent Holter monitor test and also has had a stress test in the last year. Patient states that she does not get diaphoretic with this denies shortness of breath Related Data Home Medications Medication Instructions Recorded Confirmed aspirin 81 mg tablet,delayed 81 mg PO DAILY 09/20/19 09/10/21 release Allergies Allergy/AdvReac Type Severity Reaction Status Date / Time meperidine Allergy Severe stroke Verified 09/10/21 10:29 like sx morphine Allergy Unknown confusion Verified 09/10/21 10:29 Review of Systems Review of Systems: A 10 system review of systems was completed on the patient and is negative except for what is stated in the HPI. Nursing and ancillary documentation was reviewed. [facility] Past Medical History Medical History Abnormality of gait Allergic rhinitis Bronchitis Chronic sinusitis Chronic sinusitis Cough Debility Epigastric pain Family history of colon cancer Gastritis Hiatal hernia without gangrene and obstruction History of cerebrovascular accident (CVA) involving cerebellum Hypothyroidism (acquired) LUQ abdominal pain Mixed hyperlipidemia Muscle spasm of back Muscle spasms of both lower extremities Other chronic pain Pancreatic cyst Postoperative hypothyroidism Subacute sinusitis Surgical History Surgical History History of bilateral hip replacements History of cholecystectomy History of discectomy History of fusion of cervical spine History of lumbar fusion History of right knee joint replacement History of thyroidectomy, total Family History Family History Father Family history of tuberculosis, Onset Age: 72 Patient's father is Mother Hypertension Family history of elevated blood lipids Family history of cardiomyopathy Other Cerebrovascular accident Diabetes mellitus Social History Social History Social History: Smoking status: Never smoker Second hand tobacco smoke exposure: No Alcohol intake: never Substance use: never Substance use type: does not use Gender identity (if verbalized by the patient): Female Sexual Orientation (if Verbalized by the Patient): Straight or Heterosexual Spiritual care concerns: No Exam Narrative: GENERAL: Well-appearing, well-nourished, and in no acute distress. HEAD: Normocephalic, atraumatic. EYES: PERRLA and EOMI. ENT: Nares clear, no rhinorrhea or epistaxis. Mucous membranes moist. NECK: Supple. CHEST: Clear to auscultation. No respiratory distress. HEART: Regular rate and rhythm. No murmur heard. Normal peripheral pulses. ABDOMEN: Soft, nontender, nondistended, normal active bowel sounds. EXTREMITIES: Normal range of motion. No edema. SKIN: Warm, dry, no rash. NEURO: No focal deficits. Alert and oriented x3. PSYCH: Normal mood and affect. Course Vital Signs Vital signs: Vital Signs Temperature 36.4 C 10/05/21 16:41 Pulse Rate 87 10/05/21 16:41 Respiratory Rate 18 10/05/21 16:41 Blood Pressure 158/73 H 10/05/21 16:41 Pulse Oximetry 97 10/05/21 16:41 Temperatur
[2021-10-05 23:07] VITALS: BP 132/74; PULSE 74; RESP 16; O2SAT 99
== END 2021-10-05 23:08 | disposition home or self-care (01) ==
PROVIDERS: Emergency Medicine; Emergency Provider Emergency Medicine; PCP Family Medicine
DX: R07.89 Other chest pain (principal); E78.2 Mixed hyperlipidemia; E89.0 Postprocedural hypothyroidism; Z96.643 Presence of artificial hip joint, bilateral; Z98.1 Arthrodesis status; Z96.651 Presence of right artificial knee joint; Z79.82 Long term (current) use of aspirin; R94.31 Abnormal electrocardiogram [ECG] [EKG]
CPT/HCPCS: 36415; 71046; 80053; 83690; 84484; 85025; 85610; 85730; 93005; 99284

== ENCOUNTER 2021-11-04 12:11 | Outpatient (CLI) | payer MEDICARE, SELFPAY ==
--- NOTE | 2021-11-04 12:46 | ECHO_ITS ---
Patient Info Name: Neha Bliss Age: 81 years : 1940 Gender: Female Ht: 67 in Wt: 176 lbs BSA: 1.96 m2 HR: 75 bpm BP: 151 / 86 mmHg Heart Rhythm: Sinus Rhythm Technical Quality: Good Exam Date: 11/04/2021 1:10 PM Exam Location: [facility] Patient Status: Outpatient Admit Date: 11/04/2021 Staff Ordering Physician: Robert Krishnan MD Teacher Vocal: Maria Guadalupe Dupont RDCS Attending Provider: Robert Krishnan MD Referring Physician: Eulogio GEORGE; Exam Type: CA echo doppler color flow Study Info Indications - dyspnea R06.00 Complete two-dimensional, color flow and Doppler transthoracic echocardiogram is performed. Summary 1. Complete two-dimensional, color flow and Doppler transthoracic echocardiogram is performed. 2. Left ventricular chamber dimension is normal. 3. Left ventricular systolic function is normal, estimated at 60-65%. 4. There is mildly increased left ventricular wall thickness. 5. The left ventricular diastolic function is grade I diastolic dysfunction. 6. Left atrial chamber dimension is severely enlarged. 7. Right atrial chamber dimension is mildly enlarged. 8. There is mild to moderate mitral valve regurgitation. 9. The mitral valve annulus is mildly calcified. 10. There is mild tricuspid valve regurgitation. 11. Mild pulmonary hypertension, estimated pulmonary arterial systolic pressure is 38 mmHg. 12. There is mild pulmonic regurgitation. 13. There is small pericardial effusion. Left Ventricle Left ventricular chamber dimension is normal. Left ventricular systolic function is normal, estimated at 60-65%. There is mildly increased left ventricular wall thickness. The left ventricular diastolic function is grade I diastolic dysfunction. Right Ventricle Right ventricular chamber dimension is normal. Right ventricular systolic function is normal. Left Atria Left atrial chamber dimension is severely enlarged. Right Atria Right atrial chamber dimension is mildly enlarged. Atrial Septum Intact interatrial septum visualized by color flow imaging. Aortic Valve The aortic valve is trileaflet. There is mild aortic valve sclerosis. There is no aortic valve stenosis. There is trace aortic valve regurgitation. Pulmonic Valve The pulmonic valve is normal. There is no pulmonic valve stenosis. There is mild pulmonic regurgitation. Mitral Valve There is no mitral valve stenosis. There is mild to moderate mitral valve regurgitation. The mitral valve annulus is mildly calcified. Tricuspid Valve The tricuspid valve leaflets are normal. There is no significant tricuspid valve stenosis. There is mild tricuspid valve regurgitation. Mild pulmonary hypertension, estimated pulmonary arterial systolic pressure is 38 mmHg. Pericardium/Pleural The pericardium appears normal. There is small pericardial effusion. Inferior Vena Cava Normal inferior vena cava with >50% collapse upon inspiration consistent with normal right atrial pressure, 10 mmHg. Aorta The aortic root size at the sinus of Valsalva is normal. Left Ventricular Outflow Tract Name Value Normal LVOT 2D LVOT Diameter 2.0 cm LVOT Dopp
--- NOTE | 2021-11-05 10:34 | WPDSIXMINUTE ---
Six Minute Walk Procedure Procedure Performed Pulmonary Stress Test (6 min walk) Six Minute Walk This is a 6 minute walk test. The test was performed and interpreted in accordance with the 2014 ERS/ATS task force guidelines. Findings: The patient's resting room air oxygen saturation measured by pulse oximetry was 95% and heart rate was 84 bpm. Patient ambulated for 396 meters and oxygen saturation remained 94 to 97%. Heart rate at the end of the study was 116 bpm. The patient did not qualify for supplemental oxygen at rest or with ambulation. There are no prior studies for comparison.
--- NOTE | 2021-11-05 10:35 | WPDPFTINT ---
PFT Procedure Performed PFT Procedure Performed Spirometry with Pre/Post Bronchodilator Plethysmography (Lung Vol) Diffusing Cap (DLCO) Flow Vol Loop PFT Interpretation This is a pulmonary function test with pre and post-bronchodilator spirometry, plethysmography and diffusing capacity. The test was performed and results interpreted in accordance with the 2019 and 2005 ATS/ERS Task Force guidelines respectively using the Global Lung Function Initiative-2012 reference equations. Patient demonstrated good effort and cooperation. Reproducibility criteria were met. The quality of the pre bronchodilator spirometry maneuver was Grade A and post bronchodilator spirometry maneuver was only performed once as the patient began coughing and shaking with an elevated heart rate to 107. Patient was monitored for 20 minutes and the heart rate recovered to 84. Findings: Spirometry: There is decreased maximal expiratory airflow at all lung volumes with concave expiratory flow tracing. The contour the inspiratory flow tracing is normal. The pre bronchodilator FVC is 2.13 L, 76% predicted. The pre bronchodilator FEV1 is 1.35, 64% predicted. The FEV1: FVC ratio 64%. The post bronchodilator FVC is 2.24 L, representing a 5% increase. The post bronchodilator FEV1 is 1.47 L, representing a 9% increase. The post bronchodilator FEV1: FVC ratio was 66%. Plethysmography: The total lung capacity is 7.33 L, 133% predicted. The functional residual capacity is 5.82 L, 183% predicted. The residual volume is 5.20 L, 205% predicted. Diffusion capacity: The absolute diffusion capacity is 14.0, 68% predicted. The diffusing capacity corrected for alveolar volume is 3.88, 97% predicted. Impression: There is a moderate obstructive abnormality without significant improvement after inhaling a single dose of albuterol. The increase in residual volume is consistent with air trapping from an obstructive abnormality. Hyperinflation is present is demonstrated by the increase in functional residual capacity and total lung capacity and is consistent with an obstructive abnormality. The absolute diffusing capacity is mildly decreased and normalizes when corrected for alveolar volume. There are no prior studies for comparison
== END 2021-11-04 12:12 | disposition home or self-care (01) ==
PROVIDERS: PCP Family Medicine; Visit Provider Internal Medicine Pulmonary Disease
DX: R06.00 Dyspnea, unspecified (principal); R94.2 Abnormal results of pulmonary function studies; I08.3 Combined rheumatic disorders of mitral, aortic and tricuspid valves
CPT/HCPCS: 93306; 94060; 94618; 94726; 94729

== ENCOUNTER 2022-04-21 07:48 | Outpatient (CLI) | payer MEDICARE, SELFPAY ==
[2022-04-21 09:31] LABS: Total Triiodothyronine (T3) 1.07 NG/ML (0.97-1.69)
[2022-04-21 09:45] LABS: Free T4 Free Thyroxine 1.44 ng/mL (0.78-2.19)
== END 2022-04-21 07:49 | disposition home or self-care (01) ==
LOC: ANHLAB 07:50
PROVIDERS: PCP Family Medicine; Visit Provider Family Medicine
DX: E03.9 Hypothyroidism, unspecified (principal)
CPT/HCPCS: 36415; 84439; 84443; 84480

== ENCOUNTER 2022-04-22 08:54 | Outpatient (CLI) | payer MEDICARE, SELFPAY ==
[2022-04-22 09:12] LABS: Basophils Absolute Auto 0.1 K/mm3 (0.0-0.1); Basophils Percent Auto 1.7 % (0.2-1.2); Eosinophils Absolute Auto 0.3 K/mm3 (0-0.3); Eosinophils Percent Auto 6.9 % (0-4.4); Hematocrit 36.7 % (37.0-47.0); Hemoglobin 11.7 g/dL (12.0-15.0); Immature Granulocyte Absolute 0.01 K/mm3 (0.00-0.031); Immature Granulocyte Percent A 0.2 % (0-0.5); Lymphocytes Absolute Auto 1.56 K/mm3 (0.9-3.2); Lymphocytes Percent Auto 33.5 % (18.3-44.2); Mean Corpuscular HGB Conc 31.9 g/dl (32-36); Mean Corpuscular Hemoglobin 29.7 pg (26-34); Mean Corpuscular Volume 93.1 fl (80-100); Mean Platelet Volume 10.1 fl (7.4-10.4); Monocytes Absolute Auto 0.4 K/mm3 (0.1-0.6); Monocytes Percent Auto 8.8 % (2.6-8.5); Neutrophils Absolute Auto 2.3 K/mm3 (1.3-6.7); Neutrophils Percent Auto 48.9 % (45.5-73.1); Platelet Count Result 212 k/mm3 (150-375); Red Blood Count 3.94 M/mm3 (4.2-5.4); Red Cell Distribution Width 14.4 % (11.5-14.5); White Blood Count 4.7 K/mm3 (4.5-10.0)
[2022-04-22 09:27] LABS: Alanine Aminotransferase 20 U/L (6-35); Albumin Level 4.1 g/dL (3.5-5.1); Alkaline Phosphatase 52 U/L (38-126); Anion Gap 4 mmol/L (8-16); Aspartate Amino Transferase 24 U/L (14-36); Bilirubin,Total 0.3 mg/dL (0.2-1.3); Blood Urea Nitrogen 17 mg/dL (7-17); CRP < 0.5 mg/dL (<1.0); Calcium 8.9 mg/dL (8.4-10.2); Carbon Dioxide 26 mmol/L (22-30); Chloride 108 mmol/L (98-107); Estimated Glomerular Filt Rate > 60; Glucose 95 mg/dL (65-110); Sodium 138 mmol/L (137-145)
[2022-04-22 10:08] LABS: Erythrocyte Sedimentation Rate 19 mm/hr (0-20)
== END 2022-04-22 08:55 | disposition home or self-care (01) ==
PROVIDERS: PCP Family Medicine; Visit Provider Physician Assistant
DX: R53.1 Weakness (principal); R53.83 Other fatigue
CPT/HCPCS: 36415; 80053; 82607; 85025; 85652; 86140

== ENCOUNTER 2022-06-24 11:09 | Outpatient (CLI) | payer MEDICARE, SELFPAY ==
--- NOTE | ~2022-06-24 | XR_ITS ---
EXAMINATION:XR_CERV2-3V_CR DATE: 06/24/2022 12:03 INDICATION: Neck pain TECHNIQUE: AP, lateral, lateral swimmers and odontoid views of the cervical spine are provided. COMPARISON: 02/03/2017 FINDINGS: There are 2 mm of chronic anterolisthesis of C4 on C5 and 3 mm of chronic retrolisthesis of C5 on C6. The odontoid is intact. No fracture is identified. There is unchanged severe loss of inter vertebral disc space height at C5-6 and C6-7. The vertebral body heights are normal. Prevertebral sof t tissues are normal. There is severe multilevel facet and uncovertebral joint osteoarthritis. IMPRESSION: 1. Moderate to severe cervical spondylosis without acute findings. Reviewed, dictated and finalized at location A.
--- NOTE | ~2022-06-24 | XR_ITS ---
EXAMINATION: XR lumbar spine 2-3V DATE: 06/24/2022 12:02 INDICATION: Low back pain TECHNIQUE: Anteroposterior and lateral views of the lumbar spine, and cone-down lateral view of the l umbosacral junction were obtained. COMPARISON: MRI, 05/15/2021 FINDINGS: Bone alignment is normal. There is no fracture. There is severe loss of intervertebral disc space height at L1 to and L4-5 and moderate loss of disc space height at L5-S1. The vertebral body h eights are normal. There is moderate to severe facet osteoarthritis of the lower lumbar spine. Change s of lower thoracic fusion and bilateral total hip arthroplasty are noted. The bowel gas pattern is n ormal. IMPRESSION: 1. Severe lumbar spondylosis without acute findings or significant interval change. Reviewed, dictated and finalized at location A. IMPRESSION: 1. Severe lumbar spondylosis without acute findings or significant interval lizz nge.
--- NOTE | ~2022-06-24 | XR_ITS ---
EXAMINATION: XR_RIBSLTCXR1_CR INDICATION: Left-sided chest pain TECHNIQUE: A frontal view of the chest and 3 views of the left ribs were obtained. COMPARISON: 10/05/2021 FINDINGS: The lungs are free of acute opacities. No pleural effusion or pneumothorax. The cardiomedia stinal silhouette is normal for technique. Changes of lower thoracic fusion are noted. No displaced r ib fracture is identified. There is advanced osteoarthritis of the glenohumeral joint. IMPRESSION: 1. No acute cardiopulmonary abnormality or evidence of displaced rib fracture. Reviewed, dictated and finalized at location A.
== END 2022-06-24 11:10 | disposition home or self-care (01) ==
PROVIDERS: PCP Family Medicine; Visit Provider Nurse Practitioner Gerontology
DX: R07.81 Pleurodynia (principal); M47.892 Other spondylosis, cervical region; M47.896 Other spondylosis, lumbar region
CPT/HCPCS: 71101; 72040; 72100

== ENCOUNTER 2022-06-28 14:22 | Outpatient (CLI) | payer MEDICARE, SELFPAY ==
--- NOTE | ~2022-06-28 | US_ITS ---
EXAMINATION: US thyroid DATE: 06/28/2022 15:17 INDICATION: Nontoxic goiter, unspecified. TECHNIQUE: Multiple ultrasound images of the thyroid were obtained. COMPARISON: Ultrasound 09/23/2014 FINDINGS: The right thyroid lobe measures 3.8 x 1.6 x 1.9 cm. The left thyroid lobe measures 2.3 x 0.8 x 1.0 cm cm. In the right thyroid lobe, there is a 2.4 cm mixed cystic and solid, hypoechoic, wider than [place] l nodule with lobulated margin without echogenic foci (TI-RADS TR4), new from 09/23/14. In the left t hyroid lobe, there is a 6 mm solid, hypoechoic, wider than tall nodule with smooth margin without ech ogenic foci (TR4). In the left thyroid lobe, there is a 5 mm predominantly solid, hypoechoic, wider t guerra tall nodule with smooth margin without echogenic foci (TR4). In the left thyroid lobe, there is a 6 mm solid, hypoechoic, wider than tall nodule with smooth margin without echogenic foci (TR4). IMPRESSION: 1. Multinodular goiter. Consider ultrasound-guided fine-needle aspiration of the 2.4 cm right thyroid nodule. Reviewed, dictated and finalized at location A. IMPRESSION: 1. Multinodular goiter. Consider ultrasound-guided fine-needle aspiration of th e 2.4 cm right thyroid nodule.
== END 2022-06-28 14:23 | disposition home or self-care (01) ==
LOC: ANHIMG 14:23
PROVIDERS: PCP Family Medicine; Visit Provider Nurse Practitioner Gerontology
DX: E04.2 Nontoxic multinodular goiter (principal)
CPT/HCPCS: 76536

== ENCOUNTER 2022-06-29 20:05 | Inpatient (IN) | payer MEDICARE, SELFPAY ==
--- NOTE | ~2022-06-29 | XR_ITS ---
EXAMINATION: XR abdomen obstructive series DATE: 06/30/2022 08:15 INDICATION: Cecal volvulus. TECHNIQUE: Upright and supine views of the abdomen were obtained. COMPARISON: CT abdomen and pelvis 06/29/2022 FINDINGS: The proximal right colon is distended and displaced into the left abdomen, consistent with cecal volvulus. The small bowel is normal in caliber. No free intraperitoneal gas. There are changes of anterior fusion procedure in thoracic spine. Surgical clips in the right upper quadrant are likely from cholecystectomy. There are bilateral total hip arthroplasties. IMPRESSION: 1. Cecal volvulus. Reviewed, dictated and finalized at location A. IMPRESSION: 1. Cecal volvulus.
--- NOTE | ~2022-06-29 | CT_ITS ---
EXAMINATION: CT abdomen pelvis w con DATE: 06/29/2022 22:59 INDICATION: RLQ abd pain, abd distension TECHNIQUE: Computed tomography (CT) of the abdomen and pelvis was performed with 100 mL Omnipaque-350 intravenous contrast. Automated exposure control and iterative reconstruction technique were employe d. The dose-length product was 780.76 mGy-cm. COMPARISON: 08/12/2021. FINDINGS: Lower thorax: Unremarkable Liver: Normal. Biliary/Gallbladder: Gallbladder is absent. No bile duct dilation. Pancreas: Stable pancreatic head cystic lesion Spleen: Normal. Adrenals:No mass. Kidneys: Bilateral cortical thinning and multiple hypodensities, too small to characterize but statis tically most likely represent cysts GI tract: The cecum is dilated to 10.7 cm and rotated into the left upper quadrant, with twisting of the mesentery. Appendix not visualized Mesentery/Peritoneum: No ascites, mass, or free air. Retroperitoneum: No mass. Atherosclerotic abdominal aortic and/or arterial calcifications. Pelvis: Pelvic anatomy is obscured by metal artifact. Soft Tissues: Soft tissues and body wall unremarkable. Bones: Bilateral hip arthroplasties. Thoracic fusion hardware. IMPRESSION: Cecal volvulus. Reviewed, dictated and finalized at location K. IMPRESSION: Cecal volvulus.
[2022-06-29 20:22] VITALS: BP 142/99; PULSE 77; RESP 18; TEMP 36.5; O2SAT 97
[2022-06-29 20:44] LABS: Basophils Absolute Auto 0.1 K/mm3 (0.0-0.1); Eosinophils Absolute Auto 0.5 K/mm3 (0-0.3); Eosinophils Percent Auto 7.4 % (0-4.4); Hematocrit 37.6 % (37.0-47.0); Hemoglobin 11.8 g/dL (12.0-15.0); Immature Granulocyte Absolute 0.02 K/mm3 (0.00-0.031); Immature Granulocyte Percent A 0.3 % (0-0.5); Lymphocytes Percent Auto 23.1 % (18.3-44.2); Mean Corpuscular HGB Conc 31.4 g/dl (32-36); Mean Corpuscular Volume 95.7 fl (80-100); Mean Platelet Volume 10.9 fl (7.4-10.4); Monocytes Absolute Auto 0.5 K/mm3 (0.1-0.6); Monocytes Percent Auto 8.4 % (2.6-8.5); Neutrophils Absolute Auto 3.6 K/mm3 (1.3-6.7); Neutrophils Percent Auto 59.8 % (45.5-73.1); Platelet Count Result 221 k/mm3 (150-375); Red Blood Count 3.93 M/mm3 (4.2-5.4); Red Cell Distribution Width 14.7 % (11.5-14.5); White Blood Count 6.1 K/mm3 (4.5-10.0)
[2022-06-29 20:49] LABS: Appearance Urine Clear (Clear); Bilirubin Urine Negative (Negative); Blood Urine 2+ (Negative); Color Urine Yellow (Yellow); Glucose Urine UA Negative (Negative); Ketones Urine Negative (Negative); Leukocyte Esterase Ur Trace LEU/UL (Negative); Nitrate Urine Negative (Negative); Protein Urine Negative (Negative); Specific Grav Ur 1.025 (1.001-1.035); Urobilinogen Urine 0.2 mg/dL (<2.0); pH Urine 5.5 (5.0-9.0)
[2022-06-29 20:55] LABS: Mucus Urine Rare /lpf; Squamous Epithelial Cell Urine Rare /hpf (Few); WBC Urine 0-3 /hpf
[2022-06-29 20:56] LABS: Alanine Aminotransferase 22 U/L (6-35); Albumin Level 4.4 g/dL (3.5-5.1); Alkaline Phosphatase 51 U/L (38-126); Anion Gap 11 mmol/L (8-16); Aspartate Amino Transferase 29 U/L (14-36); Bilirubin,Total 0.2 mg/dL (0.2-1.3); Blood Urea Nitrogen 24 mg/dL (7-17); Calcium 9.5 mg/dL (8.4-10.2); Carbon Dioxide 24 mmol/L (22-30); Chloride 104 mmol/L (98-107); Estimated CRCL calculation 53 ml/min; Estimated Glomerular Filt Rate > 60; Glucose 104 mg/dL (65-110); Lipase 105 U/L (23-300); Potassium 4.3 mmol/L (3.4-5.0); Sodium 139 mmol/L (137-145)
[2022-06-29 20:56] LABS: Add Urine Microscopic? YES
--- NOTE | 2022-06-29 22:00 | ED.ABDPAIN ---
HPI - Abdominal Pain General Chief Complaint: Abdominal Pain Stated Complaint: abd pain Time Seen by Provider: 06/29/22 21:48 Source: patient and family Mode of arrival: ambulatory Limitations: no limitations History of Present Illness HPI narrative: The patient is an 81-year-old female with a history of hypothyroidism, acid reflux presenting to the emergency department for evaluation of abdominal distention and right lower quadrant abdominal pain. Patient reports she has had right lower quadrant abdominal pain over the past 12 hours, described as sharp, shooting in nature without radiation to the flank. Patient reports significant abdominal distention, belching, and 2 loose bowel movements today without blood or mucus present. Patient denies any dysuria or hematuria. She reports subjective fever and chills. She denies chest pain, cough, shortness of breath. Patient reports 1 episode of vomiting earlier today. She reports significant nausea. Patient reports history of cholecystectomy, denies history of other intra-abdominal surgery or bowel obstruction. Per chart review, patient has a history of hiatal hernia Related Data Home Medications Medication Instructions Recorded Confirmed aspirin 81 mg tablet,delayed 81 mg PO DAILY 09/20/19 06/30/22 release levothyroxine 100 mcg tablet 100 mcg PO DAILY 06/30/22 06/30/22 metaxalone 800 mg tablet 800 mg PO TID PRN Muscle Spasm 06/30/22 06/30/22 Allergies Allergy/AdvReac Type Severity Reaction Status Date / Time meperidine Allergy Severe stroke Verified 06/29/22 22:44 like sx morphine Allergy Unknown confusion Verified 06/29/22 22:44 Review of Systems Review of Systems: CONSTITUTIONAL: Reports subjective fever and chills EYES: Denies visual changes, redness, or discharge. ENT: Denies rhinorrhea, congestion, sore throat, or otalgia. CARDIOVASCULAR: Denies chest pain, palpitations, or edema. RESPIRATORY: Denies cough or dyspnea. GASTROINTESTINAL: Reports abdominal pain, nausea, vomiting, loose stools GENITOURINARY: Denies dysuria or hematuria. SKIN: Denies rash or itching. MUSCULOSKELETAL: Denies back pain, joint pain, or myalgia. NEUROLOGIC: Denies headache, numbness, or weakness. [facility] Past Medical History Medical History Abnormality of gait Allergic rhinitis Bronchitis Chronic sinusitis Chronic sinusitis Cough Debility Epigastric pain Family history of colon cancer Gastritis Hiatal hernia without gangrene and obstruction History of cerebrovascular accident (CVA) involving cerebellum Hypothyroidism (acquired) LUQ abdominal pain Mixed hyperlipidemia Muscle spasm of back Muscle spasms of both lower extremities Other chronic pain Pancreatic cyst Postoperative hypothyroidism Subacute sinusitis Surgical History Surgical History History of bilateral hip replacements History of cholecystectomy History of discectomy History of fusion of cervical spine History of lumbar fusion History of right knee joint replacement History of thyroidectomy, total Family History Family History Father Family history of tuberculosis, Onset Age: 72 Patient's father is Mother Hypertension Family history of elevated blood lipids Family history of cardiomyopathy Other Cerebrovascular accident Diabetes mellitus Social History Social History (Updated 06/24/22 @ 10:10 by Viktoriya Beauchamp) Social History: Smoking status: Never smoker Second hand tobacco smoke exposure: No Alcohol intake: never Substance use: never Substance use type: does not use Gender identity (if verbalized by the patient): Female Sexual Orientation (if Verbalized by the Patient): Straight or Heterosexual Spiritual care concerns: No Exam Narrative: GENERAL: Awake, alert, conversant
[2022-06-29 22:59] LABS: Lactic Acid Reflex 0.5 mmol/L (0.7-2.0)
[2022-06-29] MEDS: SODIUM CHLORIDE 0.9% IV 1,000 ML 999 ML IV CONT (23:20)
[2022-06-30] VITALS (22 sets, daily range): BP systolic 119–158; BP diastolic 53–71; PULSE 70–102; RESP 12–23; TEMP 36.1–36.7; O2SAT 91–100; BMI 29.7
--- NOTE | 2022-06-30 00:36 | ECG_ITS ---
Measurements Intervals [place] Rate: 76 P: 71 OK: 139 QRS: -3 QRSD: 97 T: 11 QT: 393 QTc: 444 Interpretive Statements SINUS RHYTHM WITH OCCASIONAL SUPRAVENTRICULAR PREMATURE COMPLEXES INCOMPLETE RIGHT BUNDLE BRANCH BLOCK BORDERLINE ECG COMPARED TO ECG 10/05/2021 16:47:26 NO SIGNIFICANT CHANGES Electronically Signed On 06-30-2022 16:06:52 CDT by Srinivas Fraser M.D.
[2022-06-30 01:17] LABS: Prothrombin Time 12.9 Seconds (11.1-14.7)
[2022-06-30] MEDS: HYDROmorphone HCL INJ (*CRX) 1 MG/ML SYR 0.5 MG IV PUSH ×2 (01:22→05:34)
[2022-06-30 01:24] LABS: Partial Thromboplastin Time 27.6 SECONDS (22.3-36.8)
[2022-06-30 01:43] LABS: SARS-CoV-2 RNA PCR Negative
[2022-06-30] MEDS: ONDANSETRON INJ 4 MG/2 ML VIAL IV PUSH ×2 (02:25→11:22)
[2022-06-30] MEDS: LACTATED RINGERS 1,000 ML 125 ML IV CONT ×2 (02:44→18:59)
--- NOTE | 2022-06-30 03:22 | PC.NURSE ---
This patient, Neha Bliss, was admitted to Medical Room 343-01. Patient/family oriented to hospital policies and general routines including ID bracelet, bed and alarms, visiting hours, pain management, procedures, bathroom and other care routines, personal items, smoking policy, room service/diet, and visiting hours. Information on how to activate the Rapid Response Team has been discussed. Patient/Family are encouraged to report perceived risks to care and to ask questions if they do not understand what they are told or what they should do.
--- NOTE | 2022-06-30 03:30 | PC.NURSE ---
Er nurse called and said pt received Fentanyl and Zofran in ER prior to coming to the floor.
[2022-06-30 07:00] LABS: Basophils Absolute Auto 0.1 K/mm3 (0.0-0.1); Eosinophils Absolute Auto 0.2 K/mm3 (0-0.3); Hematocrit 34.6 % (37.0-47.0); Hemoglobin 10.8 g/dL (12.0-15.0); Immature Granulocyte Absolute 0.02 K/mm3 (0.00-0.031); Immature Granulocyte Percent A 0.3 % (0-0.5); Lymphocytes Absolute Auto 0.92 K/mm3 (0.9-3.2); Lymphocytes Percent Auto 15.3 % (18.3-44.2); Mean Corpuscular HGB Conc 31.2 g/dl (32-36); Mean Corpuscular Hemoglobin 30.2 pg (26-34); Mean Corpuscular Volume 96.6 fl (80-100); Mean Platelet Volume 10.5 fl (7.4-10.4); Monocytes Absolute Auto 0.3 K/mm3 (0.1-0.6); Monocytes Percent Auto 5.5 % (2.6-8.5); Neutrophils Absolute Auto 4.5 K/mm3 (1.3-6.7); Neutrophils Percent Auto 74.9 % (45.5-73.1); Platelet Count Result 194 k/mm3 (150-375); Red Blood Count 3.58 M/mm3 (4.2-5.4); Red Cell Distribution Width 14.8 % (11.5-14.5)
[2022-06-30 07:06] LABS: Magnesium 2.2 mg/dL (1.6-2.3)
--- NOTE | 2022-06-30 08:14 | PM.IMCN ---
Assessment and Plan Assessment and plan (1) Cecal volvulus: Code(s): K56.2 - Volvulus Status: Acute Assessment and Plan: general surgery is on for primary Patient has been NPO Resume home medications when appropriate Pain management IV antiemetics HPI Data of Consult Consult date: 06/30/22 Requesting Physician: Aric Foster MD Primary Care Provider: Iliana Gonzalez MD Consult Narrative Narrative: Neha Bliss is a 81 year old female with a past medical history of high resume, acid reflux disease, cholecystectomy, CVA and mixed hyperlipidemia. Patient presented to [facility] for evaluation of abdominal distention and right lower quadrant abdominal pain. Patient reported at that time that her right lower quadrant abdominal pain that lasted over 12 hours and described the pain as sharp, shooting in nature without radiation to the flank. Patient does have some significant abdominal distension with belching and has had 2 loose bowel movements within the last 24 hours. She denies any melena hematochezia patient denies dysuria or hematuria. She does report subjective fevers and chills. Patient endorses 1 episode of emesis with significant nausea. She does denies any chest pain or shortness a breath. While in the emergency department labs and imaging were obtained. An abdominal pelvis CT revealed a cecal volvulus and a thyroid ultrasound suggested multinodular goiters. Also suggesting of an ultrasound guided fine-needle aspiration of the 2.4 cm right thyroid nodule. Lab significant for WBC of 6.0, hemoglobin 10.8, hematocrit 34.6 and platelets of 194. Was sodium 139, potassium 4.3, BUN 24 and a creatinine of 0.8 with normal LFTs and negative troponins. UA essentially negative. Hospitalist team was consulted for medical comanagement Review of Systems Review of Systems: All systems reviewed & are unremarkable except as noted in HPI and below PMFSH Past Medical History Medical History Abnormality of gait Allergic rhinitis Bronchitis Chronic sinusitis Chronic sinusitis Cough Debility Epigastric pain Family history of colon cancer Gastritis Hiatal hernia without gangrene and obstruction History of cerebrovascular accident (CVA) involving cerebellum Hypothyroidism (acquired) LUQ abdominal pain Mixed hyperlipidemia Muscle spasm of back Muscle spasms of both lower extremities Other chronic pain Pancreatic cyst Postoperative hypothyroidism Subacute sinusitis Surgical History Surgical History History of bilateral hip replacements History of cholecystectomy History of discectomy History of fusion of cervical spine History of lumbar fusion History of right knee joint replacement History of thyroidectomy, total Family History Family History Father Family history of tuberculosis, Onset Age: 72 Patient's father is Mother Hypertension Family history of elevated blood lipids Family history of cardiomyopathy Other Cerebrovascular accident Diabetes mellitus Social History Social History (Updated 06/24/22 @ 10:10 by Viktoriya Beauchamp) Social History: Smoking status: Never smoker Second hand tobacco smoke exposure: No Alcohol intake: never Substance use: never Substance use type: does not use Gender identity (if verbalized by the patient): Female Sexual Orientation (if Verbalized by the Patient): Straight or Heterosexual Spiritual care concerns: No Meds Home Medications and Allergies Home Medications Medication Instructions Recorded Confirmed Type aspirin 81 mg tablet,delayed 81 mg PO DAILY 09/20/19 06/30/22 History release albuterol sulfate 90 mcg/actuation 2 inh inhalation Q4H PRN shortness 12/08/21 06/30/22 Rx aerosol inhal
--- NOTE | 2022-06-30 08:18 | PM.IMHP ---
H&P: HPI History of Present Illness Date/Time: 06/30/22 08:18 Chief Complaint: Abdominal pain and bloating Narrative: The patient is an 81-year-old White female with a history of hypothyroidism, acid reflux, osteoarthritis with many back surgeries including cervical spine fusion, who presented to the emergency department last night for evaluation of abdominal distention and right lower quadrant abdominal pain.? Patient reports she has had right lower quadrant abdominal pain on and off over the past 12 hours. it is described as sharp, shooting in nature without radiation to the flank.? Patient reports significant abdominal distention, belching, and 2 loose bowel movements yesterday without blood or mucus present.? Patient denies any dysuria or hematuria.? She reports subjective fever and chills.? She denies chest pain, cough, shortness of breath.? Patient reports 1 episode of vomiting.? She reports significant nausea.? Patient reports history of cholecystectomy, denies history of other intra-abdominal surgery or bowel obstruction. apparently did have a colonoscopy but probably most recently in [address] Cano. Patient's daughter did not remember her having any specific polyps or problems. Review of Systems Review of Systems: All systems reviewed & are unremarkable except as noted in HPI and below (HPI) Constitutional: Constitutional: Reports as per HPI, Denies chills and Denies fever(s) Eyes: Eyes: Reports no additional eye complaints ENT: Reports Normal hearing present and Denies dizziness Cardiovascular: Cardiovascular: Reports no additional cardiovascular complaints, Denies chest pain and Denies irregular heart rhythm Respiratory: Respiratory: Reports no additional respiratory complaints Genitourinary: Genitourinary: Denies hematuria Musculoskeletal: Musculoskeletal: Denies back pain Comments: history of multiple back surgeries in the past including cervical thoracic and lumbar spine for stabilization and arthritis History of right knee replacement in the past for arthritis Integumentary/Breasts: Skin/Breast: Reports system reviewed and no additional complaints, except as docu Neurologic: Reports Normal hearing present, Denies Abnormal speech present, Denies confusion and Denies dizziness Psychiatric: Psychiatric: Reports no additional psychiatric complaints and Denies confusion Endocrine: Endocrine: Reports no additional endocrine complaints Hematologic/Lymphatic: Hematologic/Lymphatic: Denies easy bleeding and Denies easy bruising Allergic/Immunologic: Allergic/Immunologic: Reports no additional allergic/immunologic complaints PMFSH Past Medical History Medical History Abnormality of gait Allergic rhinitis Bronchitis Chronic sinusitis Chronic sinusitis Cough Debility Epigastric pain Family history of colon cancer Gastritis Hiatal hernia without gangrene and obstruction History of cerebrovascular accident (CVA) involving cerebellum Hypothyroidism (acquired) LUQ abdominal pain Mixed hyperlipidemia Muscle spasm of back Muscle spasms of both lower extremities Other chronic pain Pancreatic cyst Postoperative hypothyroidism Subacute sinusitis Surgical History Surgical History History of bilateral hip replacements History of cholecystectomy History of discectomy History of fusion of cervical spine History of lumbar fusion History of right knee joint replacement History of thyroidectomy, total Family History Family History Father Family history of tuberculosis, Onset Age: 72 Patient's father is Mother Hypertension Family history of elevated blood lipids Family history of cardiomyopathy Other Cerebrovascular accident Diabetes mellitus Social History Social History (Reviewed 06/30/22 @ 11:37
[2022-06-30] MEDS: HYDROmorphone HCL INJ (*CRX) 1 MG/ML SYR IV PUSH (10:48)
[2022-06-30 13:18] LABS: Lactic Acid Reflex 0.6 mmol/L (0.7-2.0)
[2022-06-30] MEDS: KETOROLAC 15 MG/ML VIAL (*BKC) IV PUSH (13:47)
--- NOTE | 2022-06-30 13:47 | WPDHPUPDATE1 ---
History and Physical Update Update Date/Time: 06/30/22 13:47 History and Physical has been reviewed, including an updated exam of the patient. There are NO changes in the patient's condition. Risks, benefits, and alternatives have been discussed and questions answered. Patient agrees to proceed with procedure.
--- NOTE | 2022-06-30 14:12 | PCWOUND ---
CWON NOTE Received orders to kyra patient's abdomen for possible ileostomy or colostomy placement. Patient was laid supine and in sitting position to find the optimal position for marking. Patient with large skin fold right at naval, so markings had to be applied slightly above the naval. Black X placed and then covered with a tegarderm. Will follow up tomorrow after surgery.
[2022-06-30] MEDS: diphenhydrAMINE HCl INJ 50 MG/ML VIAL 12.5 MG IV PUSH (14:14)
--- NOTE | 2022-06-30 14:15 | WPDANESEPPF ---
Anes - Initial Pre Proc Eval Procedure: Operation Date: 06/30/22 14:30 Proposed Procedures p Hand Assisted Laparoscopic Right Hemicolectomy, - Aric Foster MD s Possible Laparoscopic Appendectomy with Cecopexy - Aric Foster MD Date/Time: 06/30/22 14:15 Surgeon: Aric Foster MD Pre Op Diagnosis: Cecal Volvulus Patient Data Age: 81 Gender: F Height: 1.7 m Weight: 86.2 kg Last Vital Signs Temp 96.9 F L 06/30/22 13:25 Pulse 81 06/30/22 13:25 Resp 16 06/30/22 13:25 BP 152/71 H 06/30/22 13:25 Pulse Ox 95 06/30/22 13:25 O2 Del Method Room Air 06/30/22 13:25 Allergies Allergy/AdvReac Type Severity Reaction Status Date / Time meperidine Allergy Severe stroke Verified 06/29/22 22:44 like sx morphine Allergy Unknown confusion Verified 06/29/22 22:44 Home Medications Medication Instructions Recorded Confirmed Type aspirin 81 mg tablet,delayed 81 mg PO DAILY 09/20/19 06/30/22 History release albuterol sulfate 90 mcg/actuation 2 inh inhalation Q4H PRN shortness 12/08/21 06/30/22 Rx aerosol inhaler (Ventolin HFA) of breath or wheezing #1 ea fluticasone furoate 200 1 inh inhalation DAILY #1 ea 12/08/21 06/30/22 Rx mcg-vilanterol 25 mcg/dose inhalation powder (Breo Ellipta) pantoprazole 40 mg tablet,delayed 40 mg PO QAM #30 tabs 06/24/22 06/30/22 Rx release levothyroxine 100 mcg tablet 100 mcg PO DAILY 06/30/22 06/30/22 History metaxalone 800 mg tablet 800 mg PO TID PRN Muscle Spasm 06/30/22 06/30/22 History Laboratory Tests 06/29/22 06/29/22 06/29/22 20:28 20:28 20:39 WBC 6.1 K/mm3 K/mm3 (4.5-10.0) RBC 3.93 M/mm3 L M/mm3 (4.2-5.4) Hgb 11.8 g/dL L g/dL (12.0-15.0) Hct 37.6 % % (37.0-47.0) MCV 95.7 fl fl (80-100) MCH 30.0 pg pg (26-34) MCHC 31.4 g/dl L g/dl (32-36) RDW 14.7 % H % (11.5-14.5) Plt Count 221 k/mm3 k/mm3 (150-375) MPV 10.9 fl H fl (7.4-10.4) Immature Gran % (Auto) 0.3 % % (0-0.5) Neut % (Auto) 59.8 % % (45.5-73.1) Lymph % (Auto) 23.1 % % (18.3-44.2) [place] % (Auto) 8.4 % % (2.6-8.5) Eos % (Auto) 7.4 % H % (0-4.4) Baso % (Auto) 1.0 % % (0.2-1.2) Lymph # (Auto) 1.40 K/mm3 K/mm3 (0.9-3.2) [place] # (Auto) 0.5 K/mm3 K/mm3 (0.1-0.6) Eos # (Auto) 0.5 K/mm3 H K/mm3 (0-0.3) Baso # (Auto) 0.1 K/mm3 K/mm3 (0.0-0.1) Abs Immat Gran (auto) 0.02 K/mm3 K/mm3 (0.00-0.031) Absolute Neuts (auto) 3.6 K/mm3 K/mm3 (1.3-6.7) Absolute Nucleated RBC 0.0 K/mm3 K/mm3 (0.0-0.012) Nucleated RBC % 0.0 % % (0.0-0.2) PT INR APTT Sodium 139 mmol/L mmol/L (137-145) Potassium 4.3 mmol/L mmol/L (3.4-5.0) Chloride 104 mmol/L mmol/L (98-107) Carbon Dioxide 24 mmol/L mmol/L (22-30) Anion Gap 11 mmol/L mmol/L (8-16) BUN 24 mg/dL H mg/dL (7-17) Creatinine 0.80 mg/dL mg/dL (0.7-1.0) Estim Creat Clear Calc 53 ml/min ml/min Estimated GFR > 60 (59 - ) Glucose 104 mg/dL mg/dL (65-110) Lactic Acid Calcium 9.5 mg/dL mg/dL (8.4-10.2) Magnesium Total Bilirubin 0.2 mg/dL mg/dL (0.2-1.3) AST 29 U/L U/L (14-36) ALT 22 U/L U/L (6-35) Alkaline Phosphatase 51 U/L U/L (38-126) Total Protein 8.0 g/dL g/dL (6.3-8.2) Albumin 4.4 g/dL g/dL (3.5-5.1) Lipase 105 U/L U/L (23-300) Urine Color Yellow (Yellow) Urine Appearance Clear (Clear) Urine pH 5.5 (5.0-9.0) Ur Specific [place] 1.025 (1.001-1.035) Urine Protein Negative mg/dL mg/dL (Negative) Urine Glucose (UA) Negative mg/dL mg
[2022-06-30] MEDS: LACTATED RINGERS 1,000 ML 30 ML IV CONT ×2 (14:26→17:33)
[2022-06-30] MEDS: ceFAZolin 2 GM/D5W 50 ML 2 GM/50 ML BAG IVPB (14:35)
[2022-06-30] MEDS: metroNIDAZOLE 500 MG/ISO 100ML 500 MG/100 ML BAG 100 MG IVPB ×2 (15:26→21:02)
--- NOTE | 2022-06-30 17:40 | W.PM.PROC2 ---
Procedure Note - Detailed Date of Procedure 06/30/22 Pre-op Diagnosis Cecal Volvulus Post-op Diagnosis Same Procedure Performed Laparoscopic, hand assisted, Right Hemicolectomy Surgeon Aric Fotser MD Card Mounter Andie YEBOAH. OR First Asst. Anesthesia General Indications Patient presented with abdominal pain that was Yazdanism doing. Workup in the ED revealed a torsion of the cecum into the left upper quadrant. A (see report). It appeared the patient would develop bowel obstruction perhaps perforation. Therefore, having had colonoscopy a few years back without any lesions it was felt that she should consider having surgical intervention to de torse the colon and resect the area of and abnormal positioning. Findings The cecum was rotated anteriorly and up into the left upper quadrant with the ileocecal valve being posterior to it and to the right of it. Patient had a very long, 12 cm, non inflamed appendix. Description of Procedure The patient was placed in the supine position on the Operating Room table with a footboard in place. Following this, after induction of adequate general endotracheal anesthesia by [facility] Anesthesia staff, we carefully clipped and prepped the abdomen. A #16 fr. Epps catheter was inserted prior to prepping. Tessa-gastric tube was inserted by anesthesia staff. Following this, the abdomen was widely draped and then time-out was performed confirming the patient, procedure, and site of surgery. Following this, a supra-umbilical incision was made after injection local anesthetic. Starting in the umbilicus and going slightly cephalad, an 8 cm. Incision was made, which was carried down through the midline fascia and carefully elevated after visually incising the midline fascia we carefully split with a hemostat and the thinned out peritoneum and I could see the underlying cecum which had normal color other than having some injection of the visible vessels. With good vision, [facility] Medical hand port was inserted through this opening after carefully being sure there were no adhesions on the underside of the peritoneum on either side. Following this I was able to place my hand into the abdomen and in the far left lower quadrant we made a small incision after placing local anesthetic into the port site in a single 5 mm port was placed protecting the viscera with my hand. CO2 gas insufflation was then connected to this and the hand port top was applied to the midline wound protector. Following this, the abdomen was insufflated to 15 mmHg pressure of CO2 gas. We carefully placed the 10 mm 0 degree scope and inspected the abdomen. Following this, we carefully placed additional trocar, a 5 mm lateral to and well above the umbilicus in the left upper abdomen. This last one was placed under direct vision with the laparoscope. I then began dissection by carefully elevating the cecum, appendix, and the ileum, Which were mobile the left. Rotated this toward the right was able to see almost no attachments of the entire right colon to the right abdominal wall. There were some attachments approximately 6-7 cm inferior to the right lobe of the liver. Using my hand to keep the cecum slightly compressed posteriorly carefully used LigaSure device to take these down. These angled slightly toward the pelvis and once taking these down essentially I had freed up the entire right colon and there were no significant attachments to the hepatic flexure. Therefore I came back followed the transverse colon a normal omentum about midline toward the right until we came to the area where the colon had been twisted. Freed up few adhesions in this area felt that we would be able to exteriorized the entire right colon and portion of ileum. It then appeared that the entire right colon and the ileum were free enough to be mobilized to the midline. We then opened the patient Simply by removing port. Following this, resection was completed by
[2022-06-30] MEDS: fentaNYL CITRATE INJ (*CRX) 100 MCG/2 ML VIAL 25 MCG IV PUSH ×2 (17:42→17:57)
[2022-06-30 20:30] LABS: INR 1.1; Prothrombin Time 13.5 Seconds (11.1-14.7)
[2022-06-30] MEDS: FLUTICASONE/SALMETEROL 230-21 MCG INHALER 1 PUFF 2 PUFF INHALATION (20:33)
[2022-07-01] VITALS (7 sets, daily range): BP systolic 106–139; BP diastolic 44–66; PULSE 71–92; RESP 16–18; TEMP 36.4–37.1; O2SAT 93–100; BMI 31.7
--- NOTE | 2022-07-01 00:11 | PC.NURSE ---
pt has an output of 400ml since the post-op. Will continue to monitor output q4h as per surgery order.
[2022-07-01] MEDS: LACTATED RINGERS 1,000 ML 125 ML IV CONT (01:57)
[2022-07-01] MEDS: HYDROmorphone HCL INJ (*CRX) 1 MG/ML SYR 0.5 MG IV PUSH (04:33)
[2022-07-01] MEDS: metroNIDAZOLE 500 MG/ISO 100ML 500 MG/100 ML BAG 100 MG IVPB ×3 (05:56→21:30)
[2022-07-01 06:06] LABS: Basophils Percent Auto 0.3 % (0.2-1.2); Hematocrit 32.9 % (37.0-47.0); Hemoglobin 10.6 g/dL (12.0-15.0); Immature Granulocyte Absolute 0.03 K/mm3 (0.00-0.031); Immature Granulocyte Percent A 0.3 % (0-0.5); Lymphocytes Absolute Auto 1.09 K/mm3 (0.9-3.2); Mean Corpuscular HGB Conc 32.2 g/dl (32-36); Mean Corpuscular Hemoglobin 30.3 pg (26-34); Mean Platelet Volume 10.9 fl (7.4-10.4); Monocytes Absolute Auto 0.8 K/mm3 (0.1-0.6); Monocytes Percent Auto 7.7 % (2.6-8.5); Neutrophils Percent Auto 81.7 % (45.5-73.1); Platelet Count Result 188 k/mm3 (150-375); Red Cell Distribution Width 15.1 % (11.5-14.5); White Blood Count 10.9 K/mm3 (4.5-10.0)
[2022-07-01 06:10] LABS: Alanine Aminotransferase 26 U/L (6-35); Albumin Level 3.3 g/dL (3.5-5.1); Alkaline Phosphatase 41 U/L (38-126); Anion Gap 4 mmol/L (8-16); Aspartate Amino Transferase 29 U/L (14-36); Bilirubin,Total 0.4 mg/dL (0.2-1.3); Blood Urea Nitrogen 12 mg/dL (7-17); Calcium 8.1 mg/dL (8.4-10.2); Carbon Dioxide 27 mmol/L (22-30); Chloride 103 mmol/L (98-107); Estimated CRCL calculation 64 ml/min; Estimated Glomerular Filt Rate > 60; Glucose 129 mg/dL (65-110); Magnesium 1.7 mg/dL (1.6-2.3); Potassium 3.4 mmol/L (3.4-5.0); Sodium 134 mmol/L (137-145)
--- NOTE | 2022-07-01 08:10 | PM.IMCN ---
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 Continue to monitor serum electrolytes. Patient was encouraged to ambulate this morning and use her incentive spirometry. Patient reported that she has already walked all lab on the floor and plans to perform 2 more labs by the end of the day. She denies any acute pain, nausea, vomiting upset stomach or diarrhea. Mild pain to the midline incision. Review of Systems Review of Systems: All systems reviewed & are unremarkable except as noted in HPI and below PMFSH Past Medical History Medical History Abnormality of gait Allergic rhinitis Bronchitis Chronic sinusitis Chronic sinusitis Cough Debility Epigastric pain Family history of colon cancer Gastritis Hiatal hernia without gangrene and obstruction History of cerebrovascular accident (CVA) involving cerebellum Hypothyroidism (acquired) LUQ abdominal pain Mixed hyperlipidemia Muscle spasm of back Muscle spasms of both lower extremities Other chronic pain Pancreatic cyst Postoperative hypothyroidism Subacute sinusitis Surgical History Surgical History History of bilateral hip replacements History of cholecystectomy History of discectomy History of fusion of cervical spine History of lumbar fusion History of right knee joint replacement History of thyroidectomy, total Family History Family History Father Family history of tuberculosis, Onset Age: 72 Patient's father is Mother Hypertension Family history of elevated blood lipids Family history of cardiomyopathy Other Cerebrovascular accident Diabetes mellitus Social History Social History Social History: Smoking status: Never smoker Second hand tobacco smoke exposure: No Alcohol intake: never Substance use: never Substance use type: does not use Gender identity (if verbalized by the patient): Female Sexual Orientation (if Verbalized by the Patient): Straight or Heterosexual Spiritual care concerns: No Meds Home Medications and Allergies Home Medications Medication Instructions Recorded Confirmed Type aspirin 81 mg tablet,delayed 81 mg PO DAILY 09/20/19 06/30/22 History release albuterol sulfate 90 mcg/actuation 2 inh inhalation Q4H PRN shortness 12/08/21 06/30/22 Rx aerosol inhaler (Ventolin HFA) of breath or wheezing #1 ea fluticasone furoate 200 1 inh inhalation DAILY #1 ea 12/08/21 06/30/22 Rx mcg-vilanterol 25 mcg/dose inhalation powder (Breo Ellipta) pantoprazole 40 mg tablet,delayed 40 mg PO QAM #30 tabs 06/24/22 06/30/22 Rx release levothyroxine 100 mcg tablet 100 mcg PO DAILY 06/30/22 06/30/22 History metaxalone 800 mg tablet 800 mg PO TID PRN Muscle Spasm 06/30/22 06/30/22 History Allergies Allergy/AdvReac Type Severity Reaction Status Date / Time meperidine Allergy Severe stroke Verified 06/29/22 22:44 like sx morphine Allergy Unknown confusion Verified 06/29/22 22:44 Vital Signs Vital Signs - 24 hr 06/30/22 13:25 06/30/22 14:00 06/30/22 17:33 Temperature 96.9 F L 97.9 F 98.1 F Pulse Rate 81 78 102 H Respiratory Rate 16 14 16 Blood Pressure 152/71 H 139/67 151/68 H
[2022-07-01] MEDS: FLUTICASONE/SALMETEROL 230-21 MCG INHALER 1 PUFF 2 PUFF INHALATION ×2 (08:12→20:06)
--- NOTE | 2022-07-01 08:57 | PM.PNGS ---
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 Await resume resolution of ileus. Will recheck labs tomorrow as electrolytes seemed to be okay still. Slight low urine output last night but seems to be picking up okay will leave the Epps catheter 1 more day to monitor. Encouraged ambulation and IS. (2) Chronic back pain: Qualifiers: Back pain location: thoracic back pain Back pain laterality: left Qualified Code(s): M54.6 - Pain in thoracic spine; G89.29 - Other chronic pain Code(s): M54.9 - Dorsalgia, unspecified; G89.29 - Other chronic pain Status: Acute Assessment and Plan: Pain medicine for her incision probably will help her back but getting up and moving will probably help as much as anything. Patient should be on rotation of laying in bed, sitting in the chair and up walking in the mackey. Subjective Subjective Date/Time Seen: 07/01/22 08:57 Post Op day: 1 (Doing well status post right hemicolectomy) Patient reports: no new complaints, feels better, no flatus and no bowel movement Interval history: denies significant nausea but believe she may have taken something for it with her pain medicine early this morning. Still having pain from the midline incision. Review of Systems Review of Systems: All systems reviewed & are unremarkable except as noted in HPI and below Constitutional: Constitutional: Reports as per HPI, Denies chills and Denies fever(s) Cardiovascular: Cardiovascular: Denies chest pain and Denies dyspnea Respiratory: Respiratory: Reports no additional respiratory complaints and Denies dyspnea Gastrointestinal: Gastrointestinal: Reports as per HPI and Denies bloating Musculoskeletal: Musculoskeletal: Reports no additional musculoskeletal complaints Psychiatric: Psychiatric: Denies anxiety Exam Const: General: cooperative, comfortable, alert and awake Orientation/consciousness: patient oriented x3 HENMT: Head: normal to inspection Mouth: Yes moist mucous membranes Eyes: Sclera: sclerae normal Pupils: Equal, round and reactive pupils present Neck: Neck: normal visual inspection and no JVD Chest: Chest palpation & inspection: normal inspection of the chest Resp: Effort & Inspection: normal respiratory effort Auscultation: clear to auscultation bilaterally Cardio: Jugular venous distension: no JVD Rate: regular rate GI: Inspection: incision ( Clean and dry with surgical glue in place.) GI Palp: Yes Tenderness to palpation present (GI) ( Near incision otherwise okay) Auscultation: Hypoactive bowel sounds present Neuro: General: patient oriented x3 Cranial nerves: Yes Equal, round and reactive pupils present Objective Data Vital Signs Vital Signs: Vital Signs - 24 hr 06/30/22 13:25 06/30/22 14:00 06/30/22 17:33 Temperature 36.1 C L 36.6 C 36.7 C Pulse Rate 81 78 102 H Respiratory Rate 16 14 16 Blood Pressure 152/71 H 139/67 151/68 H Pulse Oximetry 95 93 100 Oxygen Delivery Room Air Simple Face Mask Oxygen Flow Rate 06/30/22 17:45 06/30/22 18:00 06/30/22 18:15 Temperature Pulse Rate 80 90 75 Respiratory Rate 13 14 14 Blood Pressure 119/54 L 132/60 133/58 L Pulse Oximetry 100 99 94 Oxygen Delivery Simple Face Mask Room Air Room Air Oxygen Flow Rate 06/30/22 18:30 06/30/22 18:50 06/30/22 20:20 Temperature 36.4 C L 36.1 C L Pulse Rate 81 88 90 Respiratory Rate 15 12 18 Blood Pressure 135/53 L 142/55 H 135/55 L Pulse Oximetry 98 93 92 Oxygen Delivery Room Air Oxygen Flow Rate 06/30/22 20:41 07/01/22 00:07 07/01/22 04:19 Temperature 36.9 C 36.8 C Pulse Rate 92 90 Respiratory Rate 16 16 Blood Pressure 129/48 L 121/48 L Pulse Oximetry 91 93 95 Oxygen Delivery Room Air Oxygen Flow Rate 07/01/22 08:13 Temperature Pulse Rate Respiratory Rate Blood Pressure Pulse Oxim
[2022-07-01] MEDS: ONDANSETRON HCL ODT 4 MG TABLET PO (09:35)
[2022-07-01] MEDS: ENOXAPARIN 40 MG/0.4 ML SYRINGE SUB-Q (09:35)
[2022-07-01] MEDS: HYDROmorphone HCL INJ (*CRX) 1 MG/ML SYR IV PUSH (09:44)
--- NOTE | 2022-07-01 11:56 | PC.NURSE ---
Patient was sitting in the chair this morning on assessment. She was wanting to ambulated. She rated pain as 10, but no nausea or vomiting present. She requested zofran to be given with dilaudid to avoid nausea. After administering dilaudid 1 mg patient began to what she described as light headed. Upon further assessment nausea returned with quite a bit on belching. Patient is back to bed resting comfortable at this time without pain. No signs or nausea or discomfort.
--- NOTE | 2022-07-01 12:55 | WPDANESPN ---
Anes - Prog Note Post-Op Date/Time: 07/01/22 12:55 Cardiovascular status: normal Respiratory status: normal Airway patency: baseline Mental status: baseline Post-Op hydration status: normal Vital Signs: Last Vital Signs Temp 36.4 C L 07/01/22 09:05 Pulse 71 07/01/22 09:05 Resp 18 07/01/22 09:05 BP 106/44 L 07/01/22 09:05 Pulse Ox 94 07/01/22 09:05 O2 Del Method Room Air 07/01/22 08:13 O2 Flow Rate 8 06/30/22 17:45 Pain Score (VAS): 3 I/O: Intake & Output 06/30/22 07/01/22 07/01/22 23:59 07:59 15:59 Intake Total 1950 1050 1000 Output Total 45 515 Balance 3514 925 7835 Laboratory Tests 07/01/22 05:22 07/01/22 05:22 06/30/22 06/30/22 07/01/22 13:05 19:53 05:22 WBC 10.9 H RBC 3.50 L Hgb 10.6 L Hct 32.9 L MCV 94.0 MCH 30.3 MCHC 32.2 RDW 15.1 H Plt Count 188 MPV 10.9 H Immature Gran % (Auto) 0.3 Neut % (Auto) 81.7 H Lymph % (Auto) 10.[address] [place] % (Auto) 7.7 Eos % (Auto) 0.0 Baso % (Auto) 0.3 Lymph # (Auto) 1.09 [place] # (Auto) 0.8 H Eos # (Auto) 0.0 Baso # (Auto) 0.0 Abs Immat Gran (auto) 0.03 Absolute Neuts (auto) 9.0 H Absolute Nucleated RBC 0.0 Nucleated RBC % 0.0 PT 13.5 INR 1.1 Sodium Potassium Chloride Carbon Dioxide Anion Gap BUN Creatinine Estim Creat Clear Calc Estimated GFR Glucose Lactic Acid 0.6 L Calcium Magnesium Total Bilirubin AST ALT Alkaline Phosphatase Total Protein Albumin 07/01/22 05:22 WBC RBC Hgb Hct MCV MCH MCHC RDW Plt Count MPV Immature Gran % (Auto) Neut % (Auto) Lymph % (Auto) [place] % (Auto) Eos % (Auto) Baso % (Auto) Lymph # (Auto) [place] # (Auto) Eos # (Auto) Baso # (Auto) Abs Immat Gran (auto) Absolute Neuts (auto) Absolute Nucleated RBC Nucleated RBC % PT INR Sodium 134 L Potassium 3.4 Chloride 103 Carbon Dioxide 27 Anion Gap 4 L BUN 12 D Creatinine 0.70 Estim Creat Clear Calc 64 Estimated GFR > 60 Glucose 129 H Lactic Acid Calcium 8.1 L Magnesium 1.7 Total Bilirubin 0.4 AST 29 ALT 26 Alkaline Phosphatase 41 Total Protein 6.0 L Albumin 3.3 L Patient Feedback: Patient satisfied with anesthetic care.
[2022-07-01] MEDS: LACTATED RINGERS 1,000 ML 100 ML IV CONT (14:59)
[2022-07-01] MEDS: KETOROLAC 15 MG/ML VIAL (*BKC) IV PUSH (18:19)
[2022-07-02 04:33] VITALS: BP 137/57; PULSE 82; RESP 18; TEMP 36.6; O2SAT 96
[2022-07-02] MEDS: metroNIDAZOLE 500 MG/ISO 100ML 500 MG/100 ML BAG 100 MG IVPB (06:18)
[2022-07-02] MEDS: LACTATED RINGERS 1,000 ML 100 ML IV CONT ×2 (06:25→13:19)
[2022-07-02] MEDS: FLUTICASONE/SALMETEROL 230-21 MCG INHALER 1 PUFF 2 PUFF INHALATION ×2 (07:53→20:51)
--- NOTE | 2022-07-02 08:03 | PM.IMCN ---
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 patient is doing well today. She is able to pass gas without difficulty. No bowel movement. Patient's urine output increased. General surgery is decided to pull Epps catheter and see how the patient voids. Increase diet to clear liquids. Patient denies any acute abdominal pain. Denies any nausea or vomiting. Review of Systems Review of Systems: All systems reviewed & are unremarkable except as noted in HPI and below PMFSH Past Medical History Medical History Abnormality of gait Allergic rhinitis Bronchitis Chronic sinusitis Chronic sinusitis Cough Debility Epigastric pain Family history of colon cancer Gastritis Hiatal hernia without gangrene and obstruction History of cerebrovascular accident (CVA) involving cerebellum Hypothyroidism (acquired) LUQ abdominal pain Mixed hyperlipidemia Muscle spasm of back Muscle spasms of both lower extremities Other chronic pain Pancreatic cyst Postoperative hypothyroidism Subacute sinusitis Surgical History Surgical History History of bilateral hip replacements History of cholecystectomy History of discectomy History of fusion of cervical spine History of lumbar fusion History of right knee joint replacement History of thyroidectomy, total Family History Family History Father Family history of tuberculosis, Onset Age: 72 Patient's father is Mother Hypertension Family history of elevated blood lipids Family history of cardiomyopathy Other Cerebrovascular accident Diabetes mellitus Social History Social History Social History: Smoking status: Never smoker Second hand tobacco smoke exposure: No Alcohol intake: never Substance use: never Substance use type: does not use Gender identity (if verbalized by the patient): Female Sexual Orientation (if Verbalized by the Patient): Straight or Heterosexual Spiritual care concerns: No Meds Home Medications and Allergies Home Medications Medication Instructions Recorded Confirmed Type aspirin 81 mg tablet,delayed 81 mg PO DAILY 09/20/19 06/30/22 History release albuterol sulfate 90 mcg/actuation 2 inh inhalation Q4H PRN shortness 12/08/21 06/30/22 Rx aerosol inhaler (Ventolin HFA) of breath or wheezing #1 ea fluticasone furoate 200 1 inh inhalation DAILY #1 ea 12/08/21 06/30/22 Rx mcg-vilanterol 25 mcg/dose inhalation powder (Breo Ellipta) pantoprazole 40 mg tablet,delayed 40 mg PO QAM #30 tabs 06/24/22 06/30/22 Rx release levothyroxine 100 mcg tablet 100 mcg PO DAILY 06/30/22 06/30/22 History metaxalone 800 mg tablet 800 mg PO TID PRN Muscle Spasm 06/30/22 06/30/22 History Allergies Allergy/AdvReac Type Severity Reaction Status Date / Time meperidine Allergy Severe stroke Verified 06/29/22 22:44 like sx morphine Allergy Unknown confusion Verified 06/29/22 22:44 Vital Signs Vital Signs - 24 hr 07/01/22 08:13 07/01/22 09:05 07/01/22 13:36 Temperature 97.5 F L 97.6 F Pulse Rate 71 71 Respiratory Rate 18 16 Blood Pressure 106/4
[2022-07-02] MEDS: ENOXAPARIN 40 MG/0.4 ML SYRINGE SUB-Q (09:21)
[2022-07-02] MEDS: HYDROcodone/acetaminophen (*CRX) 5-325 MG TABLET 1 TAB PO ×3 (09:55→23:11)
[2022-07-02 14:39] VITALS: BP 135/68; PULSE 90; RESP 16; TEMP 36.3; O2SAT 97
--- NOTE | 2022-07-02 16:45 | PM.PNGS ---
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 Await resolution of ileus. ( seems to be improving) Will recheck labs tomorrow as electrolytes seemed to be okay still. Slight better urine output last night and it seems to be picking up okay will remove the Epps catheter today but continue to monitor. Encouraged ambulation and IS. (2) Chronic back pain: Qualifiers: Back pain laterality: left Back pain location: thoracic back pain Qualified Code(s): M54.6 - Pain in thoracic spine; G89.29 - Other chronic pain Code(s): M54.9 - Dorsalgia, unspecified; G89.29 - Other chronic pain Status: Acute Assessment and Plan: Pain medicine for her incision probably will help her back but getting up and moving will probably help as much as anything. Patient should be on rotation of laying in bed, sitting in the chair and up walking in the mackey. Plan Try a Dulcolax supp. to see if it will help get BM's started again. Subjective Subjective Date/Time Seen: 07/02/22 11:45 Post Op day: 2 ( Gradually improving) Patient reports: flatus and no bowel movement Interval history: The patient is sitting up in bed. She states she is not nauseated. She is willing to try some liquids. She is willing to try a suppository. She has been trying to walk some. Pain seems fairly well controlled with a pain pill now. Review of Systems Review of Systems: All systems reviewed & are unremarkable except as noted in HPI and below Constitutional: Constitutional: Reports as per HPI, Denies chills and Denies fever(s) Cardiovascular: Cardiovascular: Denies chest pain and Denies dyspnea Respiratory: Respiratory: Reports no additional respiratory complaints and Denies dyspnea Gastrointestinal: Gastrointestinal: Reports as per HPI and Denies bloating Musculoskeletal: Musculoskeletal: Reports no additional musculoskeletal complaints Psychiatric: Psychiatric: Denies anxiety Exam Const: General: cooperative, comfortable, alert and awake Orientation/consciousness: patient oriented x3 HENMT: Head: normal to inspection Mouth: Yes moist mucous membranes Eyes: Sclera: sclerae normal Pupils: Equal, round and reactive pupils present Neck: Neck: normal visual inspection and no JVD Chest: Chest palpation & inspection: normal inspection of the chest Resp: Effort & Inspection: normal respiratory effort Auscultation: clear to auscultation bilaterally Cardio: Jugular venous distension: no JVD Rate: regular rate GI: Inspection: incision ( Clean and dry with surgical glue in place.) GI Palp: Yes Tenderness to palpation present (GI) ( Near incision otherwise okay) Auscultation: normal bowel sounds Rectal Exam: deferred Other: Abdominal binder in place. Neuro: General: patient oriented x3 Cranial nerves: Yes Equal, round and reactive pupils present Objective Data Vital Signs Vital Signs: Vital Signs - 24 hr 07/01/22 20:03 07/01/22 20:06 07/02/22 04:33 Temperature 37.1 C 36.6 C Pulse Rate 80 82 Respiratory Rate 18 18 Blood Pressure 139/66 137/57 L Pulse Oximetry 100 100 96 Oxygen Delivery Room Air 07/02/22 09:21 07/02/22 14:39 Temperature 36.3 C L Pulse Rate 90 Respiratory Rate 16 Blood Pressure 135/68 Pulse Oximetry 97 Oxygen Delivery Room Air Intake/Output Intake/Output: Intake & Output 06/29/22 06/30/22 07/01/22 07/02/22 23:59 23:59 23:59 23:59 Intake Total 100 4100 2350 2100 Output Total 45 765 850 Balance 100 4055 1585 1250 Meds/Results Medications: Active Medications Generic Name Dose Route Start Last Admin Trade Name Freq PRN Reason Stop Dose Admin Acetaminophen 500 mg 06/30/22 18:35 Acetaminophen 500 Mg Tablet PO Q6H PRN Mild Pain (1-3) or Fever Hydrocodone Bitart/Acetaminophen 1 tab 06/30/22 18:35 07/02/22 09:55 Hydrocodo
--- NOTE | 2022-07-02 17:45 | PC.NURSE ---
Pt up in chair for good part of day. Pt had tan removed per Dr. Foster and was advanced to clear liquid diet. Pt ambulated in hallway today and tolerated well. Pt continues to sit up in chair. Pt has minimal complaints of pain. Will continue to monitor pt.
[2022-07-02 19:33] VITALS: BP 149/56; PULSE 81; RESP 20; TEMP 36.4; O2SAT 97
[2022-07-02] MEDS: BISACODYL 10 MG SUPPOSITORY RECTAL (20:31)
[2022-07-02 20:51] VITALS: O2SAT 97
[2022-07-03 04:33] VITALS: BP 134/52; PULSE 82; RESP 18; TEMP 36.5; O2SAT 94
[2022-07-03] MEDS: HYDROcodone/acetaminophen (*CRX) 5-325 MG TABLET 1 TAB PO ×2 (04:52→21:58)
--- NOTE | 2022-07-03 05:30 | PC.NURSE ---
This nurse and patient ambulated down mackey X2.
[2022-07-03 05:43] LABS: Basophils Absolute Auto 0.1 K/mm3 (0.0-0.1); Basophils Percent Auto 0.9 % (0.2-1.2); Eosinophils Absolute Auto 0.5 K/mm3 (0-0.3); Eosinophils Percent Auto 7.8 % (0-4.4); Hematocrit 35.1 % (37.0-47.0); Hemoglobin 11.1 g/dL (12.0-15.0); Immature Granulocyte Absolute 0.01 K/mm3 (0.00-0.031); Immature Granulocyte Percent A 0.2 % (0-0.5); Lymphocytes Absolute Auto 1.21 K/mm3 (0.9-3.2); Lymphocytes Percent Auto 18.9 % (18.3-44.2); Mean Corpuscular HGB Conc 31.6 g/dl (32-36); Mean Corpuscular Hemoglobin 29.9 pg (26-34); Mean Corpuscular Volume 94.6 fl (80-100); Mean Platelet Volume 10.8 fl (7.4-10.4); Monocytes Absolute Auto 0.5 K/mm3 (0.1-0.6); Monocytes Percent Auto 7.3 % (2.6-8.5); Neutrophils Absolute Auto 4.2 K/mm3 (1.3-6.7); Neutrophils Percent Auto 64.9 % (45.5-73.1); Platelet Count Result 210 k/mm3 (150-375); Red Blood Count 3.71 M/mm3 (4.2-5.4); Red Cell Distribution Width 14.7 % (11.5-14.5); White Blood Count 6.4 K/mm3 (4.5-10.0)
[2022-07-03 05:55] LABS: Anion Gap 8 mmol/L (8-16); Blood Urea Nitrogen 11 mg/dL (7-17); Carbon Dioxide 24 mmol/L (22-30); Chloride 102 mmol/L (98-107); Estimated CRCL calculation 74 ml/min; Estimated Glomerular Filt Rate > 60; Glucose 106 mg/dL (65-110); Potassium 3.6 mmol/L (3.4-5.0); Sodium 134 mmol/L (137-145)
--- NOTE | 2022-07-03 07:08 | PM.IMPN ---
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 Patient's diet has been advanced to a clear liquid diet, if patient tolerates she may increase her diet per General surgery no bowel movement today, patient was administered Dulcolax suppository per General surgery Resume home medications when appropriate Pain management IV antiemetics ?continue to encourage? ambulation Patient apparently does not the discharge needs, she will be going home with her daughter Subjective Date/time seen: 07/03/22 07:08 patient continues to do well. Pending bowel movement. Patient had received a suppository this morning by General surgery. From the medical standpoint she appears stable. Will continue to follow along. Review of Systems Review of Systems: All systems reviewed & are unremarkable except as noted in HPI and below Exam Narrative: General: No acute distress. Mental Status: Awake, alert and oriented to person, place, and time with clear speech. Skin: Skin in warm, dry and intact without rashes or lesions. Head: Normocephalic and atraumatic. Eyes: Conjunctivae are clear without exudates or hemorrhage. Sclera is non-icteric. EOM are intact, PERRLA. Ears: The external ear and canal are non-tender and without swelling or discharge. Nose: Nasal mucosa is pink and moist. Septum midline. Nares patent bilaterally. Throat: Oral mucosa pink and moist with good dentition. Tongue midline. Neck: The neck supple without adenopathy. Trachea midline. No JVD. Cardiac: S1 and S2 regular rate and rhythm. No murmurs, gallops, or rubs auscultated. Respiratory: Chest wall symmetric, nontender and without deformity or trauma. Respirations even and unlabored. Lung sounds are clear to auscultation in all lobes bilaterally without wheezes, rhonchi, or rales. Abdominal: Abdomen soft, round and tender to palpation.? Bowel sounds present and normoactive in all 4 quadrants. ? Midline incision appears clean dry and intact Spine: Neck and back with grossly normal curvature, no deformity in appearance or signs of trauma. Extremities: Upper and lower extremities atraumatic without tenderness or deformity. Full range of motion and muscle strength 4/5 to all extremities bilaterally. Neurological: Full and symmetric motor and light touch sensation bilaterally. Cranial nerves II-XII grossly intact Objective Data Vital Signs Vital Signs: Vital Signs - 24 hr 07/02/22 09:21 07/02/22 14:39 07/02/22 19:33 Temperature 97.4 F L 97.6 F Pulse Rate 90 81 Respiratory Rate 16 20 Blood Pressure 135/68 149/56 H Pulse Oximetry 97 97 Oxygen Delivery Room Air 07/02/22 20:51 07/03/22 04:33 Temperature 97.7 F Pulse Rate 82 Respiratory Rate 18 Blood Pressure 134/52 L Pulse Oximetry 97 94 Oxygen Delivery Room Air Intake/Output Intake/Output: Intake & Output 06/30/22 07/01/22 07/02/22 07/03/22 23:59 23:59 23:59 23:59 Intake Total 4100 2350 2520 Output Total 45 765 2000 700 Balance 4055 1585 520 -700 Meds/Results Medications: Active Medications Generic Name Dose Route Start Last Admin Trade Name Freq PRN Reason Stop Dose Admin Acetaminophen 500 mg 06/30/22 18:35 Acetaminophen 500 Mg Tablet PO Q6H PRN Mild Pain (1-3) or Fever Hydrocodone Bitart/Acetaminophen 1 tab 06/30/22 18:35 07/03/22 04:52 Hydrocodone/Acetaminophen (*Crx) 5-325 Mg Tablet PO 1 tab Q4H PRN Administration Pain Rated 4-6 Hydrocodone Bitart/Acetaminophen 1 tab 06/30/22 18:35 Hydrocodone/Acetaminophen (*Crx) 7.5-325 Mg Tablet PO Q4H PRN Pain Rated 7-10 Albuterol 2 puff 06/30/22 13:21 Albuterol Sulfate (*Sp) Aerosol 1 Puff INHALATION Q4H PRN shortness of breath or wheezing Diphenhydramine HCl 25 mg 06/30/22 00:38 Diphenhydramine Hcl Inj 50 Mg/Ml Vial IV PUSH PRN PRN Itching Enoxap
--- NOTE | 2022-07-03 08:22 | PM.PNGS ---
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 Await resolution of ileus. ( seems to be improving) Electrolytes okay today with still just slightly low sodiuml. Better urine output last night and it seems to be picking up okay. BUN and creatinine okay. Encouraged ambulation and IS. awaiting return of bowel function and may be able to be discharged. Pathology discussed with patient this date. This showed adhesive bands but no polyps or tumors. (2) Chronic back pain: Qualifiers: Back pain laterality: left Back pain location: thoracic back pain Qualified Code(s): M54.6 - Pain in thoracic spine; G89.29 - Other chronic pain Code(s): M54.9 - Dorsalgia, unspecified; G89.29 - Other chronic pain Status: Acute Assessment and Plan: Pain medicine for her incision probably will help her back but getting up and moving will probably help as much as anything. Patient should be on rotation of laying in bed, sitting in the chair and up walking in the mackey. Plan Try a Dulcolax supp. to see if it will help get BM's started again. Subjective Subjective Date/Time Seen: 07/03/22 08:22 Post Op day: 3 Patient reports: pain is less, tolerating liquids well, flatus and no bowel movement Interval history: Patient is sitting up in the chair when I came in the room. States she had a little trouble keeping regular T down but is taking Jell-O and broth okay. No bowel movement yet. Is walking with the staff. Doing IS well. Review of Systems Review of Systems: All systems reviewed & are unremarkable except as noted in HPI and below Constitutional: Constitutional: Reports as per HPI, Denies chills and Denies fever(s) Cardiovascular: Cardiovascular: Denies chest pain and Denies dyspnea Respiratory: Respiratory: Reports no additional respiratory complaints and Denies dyspnea Gastrointestinal: Gastrointestinal: Reports as per HPI and Denies bloating Musculoskeletal: Musculoskeletal: Reports no additional musculoskeletal complaints Psychiatric: Psychiatric: Denies anxiety Exam Const: General: cooperative, comfortable, alert and awake Orientation/consciousness: patient oriented x3 HENMT: Head: normal to inspection Mouth: Yes moist mucous membranes Eyes: Sclera: sclerae normal Pupils: Equal, round and reactive pupils present Neck: Neck: normal visual inspection and no JVD Chest: Chest palpation & inspection: normal inspection of the chest Resp: Effort & Inspection: normal respiratory effort Auscultation: clear to auscultation bilaterally Cardio: Jugular venous distension: no JVD Rate: regular rate GI: Inspection: incision ( Clean and dry with surgical glue in place.) GI Palp: Yes Tenderness to palpation present (GI) ( Near incision otherwise okay) Auscultation: Hypoactive bowel sounds present Neuro: General: patient oriented x3 Cranial nerves: Yes Equal, round and reactive pupils present Objective Data Vital Signs Vital Signs: Vital Signs - 24 hr 07/02/22 09:21 07/02/22 14:39 07/02/22 19:33 Temperature 36.3 C L 36.4 C Pulse Rate 90 81 Respiratory Rate 16 20 Blood Pressure 135/68 149/56 H Pulse Oximetry 97 97 Oxygen Delivery Room Air 07/02/22 20:51 07/03/22 04:33 Temperature 36.5 C Pulse Rate 82 Respiratory Rate 18 Blood Pressure 134/52 L Pulse Oximetry 97 94 Oxygen Delivery Room Air Intake/Output Intake/Output: Intake & Output 06/30/22 07/01/22 07/02/22 07/03/22 23:59 23:59 23:59 23:59 Intake Total 4100 2350 2520 Output Total 45 765 2000 700 Balance 4055 1585 520 -700 Meds/Results Medications: Active Medications Generic Name Dose Route Start Last Admin Trade Name Freq PRN Reason Stop Dose Admin Acetaminophen 500 mg 06/30/22 18:35 Acetaminophen 500 Mg Tablet PO Q6H PRN Mild Pain (1-3) or Fever Hydrocodo
[2022-07-03] MEDS: FLUTICASONE/SALMETEROL 230-21 MCG INHALER 1 PUFF 2 PUFF INHALATION ×2 (08:56→22:35)
[2022-07-03] MEDS: ENOXAPARIN 40 MG/0.4 ML SYRINGE SUB-Q (09:30)
[2022-07-03] MEDS: BISACODYL 10 MG SUPPOSITORY RECTAL (10:12)
[2022-07-03 15:29] VITALS: BP 141/57; PULSE 88; RESP 16; TEMP 35.9; O2SAT 98
--- NOTE | 2022-07-03 18:48 | PC.NURSE ---
Pt had very small bowel movement today. Pt was given a second suppository. Pt up and ambulating in the halls. Pt did not require any pain medication throughout the day. Will continue to monitor pt.
[2022-07-03 19:50] VITALS: BP 139/61; PULSE 86; RESP 18; TEMP 36.5; O2SAT 98
[2022-07-03 20:00] VITALS: PULSE 86; RESP 18; O2SAT 98
[2022-07-03 22:36] VITALS: O2SAT 97
[2022-07-04 04:37] VITALS: BP 135/49; PULSE 72; RESP 18; TEMP 36.6; O2SAT 95
--- NOTE | 2022-07-04 07:04 | PM.IMPN ---
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 Patient's diet has been advanced to a clear liquid diet, if patient tolerates she may increase her diet per General surgery no bowel movement today, patient was administered Dulcolax suppository per General surgery Resume home medications when appropriate Pain management IV antiemetics ?continue to encourage? ambulation Patient apparently does not the discharge needs, she will be going home with her daughter Subjective Date/time seen: 07/04/22 07:04 no acute changes overnight. Patient has not had an appropriate bowel movement therefore she was ordered to have MiraLax by General surgery. Patient continues to ambulate up and down the hallways. Positive bowel sounds. Review of Systems Review of Systems: All systems reviewed & are unremarkable except as noted in HPI and below Exam Narrative: General: No acute distress. Mental Status: Awake, alert and oriented to person, place, and time with clear speech. Skin: Skin in warm, dry and intact without rashes or lesions. Head: Normocephalic and atraumatic. Eyes: Sclera is non-icteric. EOM are intact, PERRLA. Ears: The external ear and canal are non-tender and without swelling or discharge. Nose: Nasal mucosa is pink and moist. Throat: Oral mucosa pink and moist with good dentition. Neck: Trachea midline. No JVD. Cardiac: S1 and S2 regular rate and rhythm. Respiratory: Chest wall symmetric, nontender and without deformity or trauma. Respirations even and unlabored. Lung sounds are clear to auscultation in all lobes bilaterally without wheezes, rhonchi, or rales. Abdominal: Abdomen soft, round and tender to palpation.? Bowel sounds present and normoactive in all 4 quadrants. ? Midline incision appears clean dry and intact Spine:no deformity in appearance or signs of trauma. Extremities: Upper and lower extremities atraumatic without tenderness or deformity. Full range of motion and muscle strength 4/5 to all extremities bilaterally. Neurological: Full and symmetric motor and light touch sensation bilaterally. Cranial nerves II-XII grossly intact Objective Data Vital Signs Vital Signs: Vital Signs - 24 hr 07/03/22 15:29 07/03/22 09:40 07/03/22 19:50 Temperature 96.7 F L 97.7 F Pulse Rate 88 86 Respiratory Rate 16 18 Blood Pressure 141/57 H 139/61 Pulse Oximetry 98 98 Oxygen Delivery Room Air 07/03/22 20:00 07/03/22 22:36 07/04/22 04:37 Temperature 97.8 F Pulse Rate 86 72 Respiratory Rate 18 18 Blood Pressure 135/49 L Pulse Oximetry 98 97 95 Oxygen Delivery Room Air Room Air Intake/Output Intake/Output: Intake & Output 07/01/22 07/02/22 07/03/22 07/04/22 23:59 23:59 23:59 23:59 Intake Total 2350 2520 1080 Output Total 765 2000 1300 1100 Balance 8522 611 -155 -7322 Meds/Results Medications: Active Medications Generic Name Dose Route Start Last Admin Trade Name Freq PRN Reason Stop Dose Admin Acetaminophen 500 mg 06/30/22 18:35 Acetaminophen 500 Mg Tablet PO Q6H PRN Mild Pain (1-3) or Fever Hydrocodone Bitart/Acetaminophen 1 tab 06/30/22 18:35 07/03/22 21:58 Hydrocodone/Acetaminophen (*Crx) 5-325 Mg Tablet PO 1 tab Q4H PRN Administration Pain Rated 4-6 Hydrocodone Bitart/Acetaminophen 1 tab 06/30/22 18:35 Hydrocodone/Acetaminophen (*Crx) 7.5-325 Mg Tablet PO Q4H PRN Pain Rated 7-10 Albuterol 2 puff 06/30/22 13:21 Albuterol Sulfate (*Sp) Aerosol 1 Puff INHALATION Q4H PRN shortness of breath or wheezing Diphenhydramine HCl 25 mg 06/30/22 00:38 Diphenhydramine Hcl Inj 50 Mg/Ml Vial IV PUSH PRN PRN Itching Enoxaparin Sodium 40 mg 07/01/22 09:00 07/03/22 09:30 Enoxaparin 40 Mg/0.4 Ml Syringe SUB-Q 40 mg DAILY CONNER Administration Ketorolac Tromethamine 15 mg 07/01/22 15:42
[2022-07-04] MEDS: FLUTICASONE/SALMETEROL 230-21 MCG INHALER 1 PUFF 2 PUFF INHALATION (07:22)
[2022-07-04 07:24] VITALS: O2SAT 97
--- NOTE | 2022-07-04 07:41 | PM.PNGS ---
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 Await resolution of ileus. (seems to be improving) Electrolytes okay yesterday with still just slightly low sodium. Better urine output last night and it seems to be picking up okay. BUN and creatinine okay. Encouraged ambulation and IS. Awaiting return of bowel function and then may be able to be discharged. (2) Chronic back pain: Qualifiers: Back pain location: thoracic back pain Back pain laterality: left Qualified Code(s): M54.6 - Pain in thoracic spine; G89.29 - Other chronic pain Code(s): M54.9 - Dorsalgia, unspecified; G89.29 - Other chronic pain Status: Acute Assessment and Plan: Pain medicine for her incision probably will help her back but getting up and moving will probably help as much as anything. Patient should be on rotation of laying in bed, sitting in the chair and up walking in the mackey. Patient states back is about typical for her. She is trying to walk with a walker and I have seen her in the hallway. Plan Try a Dulcolax supp. to see if it will help get BM's started again. Have asked the nurses to give her a dose of MiraLax this morning if no bowel movement by this evening may try milk of magnesia tonight. Subjective Subjective Date/Time Seen: 07/04/22 07:41 Post Op day: 4 (S/P Rt. hemicolectomy for cecal Volvulus) Patient reports: no new complaints, flatus and no bowel movement Review of Systems Review of Systems: All systems reviewed & are unremarkable except as noted in HPI and below Constitutional: Constitutional: Reports as per HPI, Denies chills and Denies fever(s) Cardiovascular: Cardiovascular: Denies chest pain and Denies dyspnea Respiratory: Respiratory: Reports no additional respiratory complaints and Denies dyspnea Gastrointestinal: Gastrointestinal: Reports as per HPI and Denies bloating Musculoskeletal: Musculoskeletal: Reports no additional musculoskeletal complaints Psychiatric: Psychiatric: Denies anxiety Objective Data Vital Signs Vital Signs: Vital Signs - 24 hr 07/03/22 15:29 07/03/22 09:40 07/03/22 19:50 Temperature 35.9 C L 36.5 C Pulse Rate 88 86 Respiratory Rate 16 18 Blood Pressure 141/57 H 139/61 Pulse Oximetry 98 98 Oxygen Delivery Room Air 07/03/22 20:00 07/03/22 22:36 07/04/22 04:37 Temperature 36.6 C Pulse Rate 86 72 Respiratory Rate 18 18 Blood Pressure 135/49 L Pulse Oximetry 98 97 95 Oxygen Delivery Room Air Room Air 07/04/22 07:24 Temperature Pulse Rate Respiratory Rate Blood Pressure Pulse Oximetry 97 Oxygen Delivery Room Air Intake/Output Intake/Output: Intake & Output 07/01/22 07/02/22 07/03/22 07/04/22 23:59 23:59 23:59 23:59 Intake Total 2350 1940 1080 Output Total 765 6577 1300 1100 Balance 1585 647 -220 -7133 Meds/Results Medications: Active Medications Generic Name Dose Route Start Last Admin Trade Name Freq PRN Reason Stop Dose Admin Acetaminophen 500 mg 06/30/22 18:35 Acetaminophen 500 Mg Tablet PO Q6H PRN Mild Pain (1-3) or Fever Hydrocodone Bitart/Acetaminophen 1 tab 06/30/22 18:35 07/03/22 21:58 Hydrocodone/Acetaminophen (*Crx) 5-325 Mg Tablet PO 1 tab Q4H PRN Administration Pain Rated 4-6 Hydrocodone Bitart/Acetaminophen 1 tab 06/30/22 18:35 Hydrocodone/Acetaminophen (*Crx) 7.5-325 Mg Tablet PO Q4H PRN Pain Rated 7-10 Albuterol 2 puff 06/30/22 13:21 Albuterol Sulfate (*Sp) Aerosol 1 Puff INHALATION Q4H PRN shortness of breath or wheezing Diphenhydramine HCl 25 mg 06/30/22 00:38 Diphenhydramine Hcl Inj 50 Mg/Ml Vial IV PUSH PRN PRN Itching Enoxaparin Sodium 40 mg 07/01/22 09:00 07/03/22 09:30 Enoxaparin 40 Mg/0.4 Ml Syringe SUB-Q 40 mg DAILY CONNER Administration Ketorolac Tromethamine
[2022-07-04] MEDS: ENOXAPARIN 40 MG/0.4 ML SYRINGE SUB-Q (09:36)
[2022-07-04] MEDS: polyethylene glycoL 3350 17 GM POWD.PACK PO (09:37)
--- NOTE | 2022-07-04 14:22 | PM.DS ---
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 On the day following her admission after IV fluid resuscitation the patient was taken to the operating room and because of minimal attachments to the right side of the abdomen a right hemicolectomy was performed. There was no necrosis of the wall of her cecum due to the twisting. Patient had a fun a phone fairly uneventful postoperative course with a slightly prolonged ileus for 3-5 days. (2) Thyroid nodule: Code(s): E04.1 - Nontoxic single thyroid nodule Status: Acute Assessment and Plan: Patient is scheduled for an outpatient ultrasound aspiration of a nodule seen on recent ultrasound. The radically she has had a previous total thyroidectomy. Is on medication to [facility] for suppression a thyroid growth. She states she had a goiter not thyroid cancer. (3) Asthma: Code(s): J45.909 - Unspecified asthma, uncomplicated Status: Acute Assessment and Plan: Patient's home meds were resumed and she will resume these upon discharge. No real problems with wheezing or respiratory issues postoperatively. (4) Mitral valve regurgitation: Code(s): I34.0 - Nonrheumatic mitral (valve) insufficiency Status: Acute Assessment and Plan: Anesthesia did not state any significant problems during anesthesia. Patient did not have any chest pain heart problems through this admission. (5) RBBB: Code(s): I45.10 - Unspecified right bundle-branch block Status: Acute Assessment and Plan: Noted but not addressed during this admission. (6) Spinal stenosis of lumbar region with neurogenic claudication: Code(s): M48.062 - Spinal stenosis, lumbar region with neurogenic claudication Status: Acute (7) Chronic back pain: Qualifiers: Back pain location: thoracic back pain Back pain laterality: left Qualified Code(s): M54.6 - Pain in thoracic spine; G89.29 - Other chronic pain Code(s): M54.9 - Dorsalgia, unspecified; G89.29 - Other chronic pain Status: Acute Assessment and Plan: Patient complained of some back pain with our beds but was up walking well and pain medicine for her surgery help with the back pain. (8) Mixed hyperlipidemia: Code(s): E78.2 - Mixed hyperlipidemia Status: Acute Assessment and Plan: Home meds were resumed when possible. (9) History of cerebrovascular accident (CVA) involving cerebellum: Code(s): Z86.73 - Personal history of transient ischemic attack (TIA), and cerebral infarction without residual deficits Status: Acute Assessment and Plan: no real neurologic problems through this admission. Patient was also able to walk and move all extremities. (10) History of thyroidectomy, total: Code(s): E89.0 - Postprocedural hypothyroidism Status: Acute Assessment and Plan: On thyroid med a on thyroid medication which was continued IV followed by oral as her diet was advanced. She will resume usual dose at home and follow-up with her PCP for further testing and control. DS: Summary Hospital Course Reason for hospitalization: Cecal volvulus this presented with upper abdominal pain and bloating --- found on CT scan during workup in the ED. Hospital Course: patient felt fairly unremarkable hospital course. Upon finding that she had a cecal volvulus options were reviewed and since the patient appeared to be a reasonable surgical candidate surgery was recommended to consider right hemicolectomy versus appendectomy in cecal pexy. Since there was no specific necrosis of the CS: Nor any ischemia we were able to de torse the colon and then resected. Resection was indicated by the f
--- NOTE | 2022-07-04 15:41 | PC.NURSE ---
Pt has been ambulating around room occasionally throughout the day. Pt has no complaints of pain at this time. Pt was given a mixture of prune juice, apple juice, and butter to help pt have a bowel movement and them given some miralax. Pt was able to have a bowel movement and tolerated breakfast and lunch. Pt to be discharged home with daughter. Pt has been monitored for signs and symptoms of a change in status. Will continue to monitor pt until pt discharges.
[2022-07-04 16:00] VITALS: BP 148/65; PULSE 85; RESP 18; TEMP 36; O2SAT 100
== END 2022-07-04 17:55 | disposition home or self-care (01) | DRG 331 ==
LOC: ANHED 06-30 00:38 → ANH3MED 06-30 01:59
PROVIDERS: Emergency Medicine; Nurse Practitioner Family; Admitting Provider Surgery; Emergency Provider Emergency Medicine; PCP Family Medicine; Visit Provider Surgery
PROC: 0DTF4ZZ Resection of Right Large Intestine, Percutaneous Endoscopic Approach (ICD-10-PCS; CPT 44204; principal; 2022-06-30 14:30)
DX: K56.2 Volvulus (principal); E04.1 Nontoxic single thyroid nodule; J45.909 Unspecified asthma, uncomplicated; I34.0 Nonrheumatic mitral (valve) insufficiency; Z20.822 Contact with and (suspected) exposure to COVID-19; K56.7 Ileus, unspecified; I45.10 Unspecified right bundle-branch block; M48.062 Spinal stenosis, lumbar region with neurogenic claudication; E78.5 Hyperlipidemia, unspecified; E78.2 Mixed hyperlipidemia; K44.9 Diaphragmatic hernia without obstruction or gangrene; E89.0 Postprocedural hypothyroidism; K21.9 Gastro-esophageal reflux disease without esophagitis; Z96.651 Presence of right artificial knee joint; Z96.643 Presence of artificial hip joint, bilateral; Z86.73 Personal history of transient ischemic attack (TIA), and cerebral infarction without residual deficits; Z90.49 Acquired absence of other specified parts of digestive tract; Z98.1 Arthrodesis status; Z79.82 Long term (current) use of aspirin
CPT/HCPCS: 36415; 74019; 74177; 76536; 80048; 80053; 81001; 83605; 83690; 83735; 85025; 85049; 85610; 85730; 86850; 86900; 86901; 88304; 88307; 93005; 94640; 96365; 96375; 96376; 99285; A9270; C9803; G0378; J0131; J0330; J0690; J1100; J1170; J1200; J1650; J1885; J2405; J2704; J2710; J3010; J7030; J7120; Q9967; U0003; U0005

== ENCOUNTER 2022-07-14 12:52 | Outpatient (CLI) | payer MEDICARE, SELFPAY ==
--- NOTE | ~2022-07-14 | US_ITS ---
EXAMINATION: US FNA w image guidance DATE: 07/14/2022 14:08 INDICATION: Nontoxic single thyroid nodule. TECHNIQUE: The procedure and its benefits and risks were discussed with the patient. Risks specifically discusse d included bleeding. The patient verbalized understanding of the risks and agreed to proceed. The nec k was prepped and draped in the usual sterile manner. 1% lidocaine was used for local anesthesia. 6 passes were made with a 25G needle into the lesion under ultrasound guidance. There were no immedia te complications. FINDINGS: Grayscale ultrasound images demonstrate needles advanced into a 2.4 cm right thyroid nodule for biops y. IMPRESSION: 1. Ultrasound-guided fine needle aspiration of a right thyroid nodule. Reviewed, dictated and finalized at location A.
== END 2022-07-14 12:53 | disposition home or self-care (01) ==
LOC: ANHIMG 12:54
PROVIDERS: PCP Family Medicine; Visit Provider Nurse Practitioner Family
DX: E04.1 Nontoxic single thyroid nodule (principal)
CPT/HCPCS: 10005; 88173; 88305

== ENCOUNTER 2022-08-20 09:57 | Outpatient (CLI) | payer MEDICARE, SELFPAY ==
[2022-08-20 10:17] LABS: Basophils Absolute Auto 0.1 K/mm3 (0.0-0.1); Basophils Percent Auto 2.4 % (0.2-1.2); Eosinophils Absolute Auto 0.3 K/mm3 (0-0.3); Eosinophils Percent Auto 6.8 % (0-4.4); Hematocrit 38.8 % (37.0-47.0); Hemoglobin 12.3 g/dL (12.0-15.0); Immature Granulocyte Absolute 0.01 K/mm3 (0.00-0.031); Immature Granulocyte Percent A 0.2 % (0-0.5); Lymphocytes Absolute Auto 1.19 K/mm3 (0.9-3.2); Mean Corpuscular HGB Conc 31.7 g/dl (32-36); Mean Corpuscular Hemoglobin 29.8 pg (26-34); Mean Corpuscular Volume 93.9 fl (80-100); Mean Platelet Volume 10.5 fl (7.4-10.4); Monocytes Absolute Auto 0.4 K/mm3 (0.1-0.6); Monocytes Percent Auto 9.2 % (2.6-8.5); Neutrophils Absolute Auto 2.5 K/mm3 (1.3-6.7); Neutrophils Percent Auto 55.4 % (45.5-73.1); Platelet Count Result 214 k/mm3 (150-375); Red Blood Count 4.13 M/mm3 (4.2-5.4); Red Cell Distribution Width 14.2 % (11.5-14.5); White Blood Count 4.6 K/mm3 (4.5-10.0)
[2022-08-20 10:23] LABS: Alanine Aminotransferase 20 U/L (6-35); Albumin Level 4.4 g/dL (3.5-5.1); Alkaline Phosphatase 53 U/L (38-126); Anion Gap 11 mmol/L (8-16); Aspartate Amino Transferase 24 U/L (14-36); Bilirubin,Total 0.5 mg/dL (0.2-1.3); Blood Urea Nitrogen 16 mg/dL (7-17); Calcium 9.5 mg/dL (8.4-10.2); Carbon Dioxide 27 mmol/L (22-30); Chloride 103 mmol/L (98-107); Estimated Glomerular Filt Rate > 60; Glucose 93 mg/dL (65-110); Potassium 4.1 mmol/L (3.4-5.0); Sodium 141 mmol/L (137-145)
[2022-08-20 10:58] LABS: Thyroid Stimulating Hormone Reflex 0.907 uIU/mL (0.465-4.68)
== END 2022-08-20 09:58 | disposition home or self-care (01) ==
PROVIDERS: PCP Family Medicine; Visit Provider Physician Assistant
DX: D64.9 Anemia, unspecified (principal); R53.1 Weakness
CPT/HCPCS: 36415; 80053; 84443; 85025

== ENCOUNTER 2023-01-03 10:15 | Outpatient (CLI) | payer MEDICARE, SELFPAY ==
--- NOTE | ~2023-01-03 | XR_ITS ---
XR cervical spine 4-5V 01/03/2023 10:35 Indication: Cervicalgia. No known injury. Procedure: 5 views cervical spine Comparison: 06/24/2022 Findings: There is degenerative anterolisthesis at C4-5 and retrolisthesis at C5-6. There is severe l oss of disc height at C5-6. There is fusion at C6-7. No prevertebral soft tissue abnormality. No sign ificant interval change from prior study allowing for technique. There is mild-moderate multilevel un cinate and facet hypertrophy. Odontoid process is normal. Lateral masses normally aligned. Impression: 1: Stable severe cervical spondylosis. Reviewed, dictated and finalized at location B. E CALLS NURSE PRACTITIONER Impression: 1: Stable severe cervical spondylosis.
== END 2023-01-03 10:16 | disposition home or self-care (01) ==
PROVIDERS: PCP Family Medicine; Visit Provider Nurse Practitioner Gerontology
DX: M47.892 Other spondylosis, cervical region (principal)
CPT/HCPCS: 72050

== ENCOUNTER 2023-01-19 09:34 | Outpatient (CLI) | payer MEDICARE, SELFPAY ==
[2023-01-19 10:47] LABS: Basophils Absolute Auto 0.1 K/mm3 (0.0-0.1); Basophils Percent Auto 0.8 % (0.2-1.2); Eosinophils Absolute Auto 0.2 K/mm3 (0-0.3); Eosinophils Percent Auto 2.3 % (0-4.4); Hematocrit 43.3 % (37.0-47.0); Hemoglobin 13.7 g/dL (12.0-15.0); Immature Granulocyte Absolute 0.05 K/mm3 (0.00-0.031); Immature Granulocyte Percent A 0.6 % (0-0.5); Lymphocytes Absolute Auto 2.04 K/mm3 (0.9-3.2); Lymphocytes Percent Auto 23.2 % (18.3-44.2); Mean Corpuscular HGB Conc 31.6 g/dl (32-36); Mean Corpuscular Hemoglobin 30.3 pg (26-34); Mean Corpuscular Volume 95.8 fl (80-100); Mean Platelet Volume 10.6 fl (7.4-10.4); Monocytes Absolute Auto 0.5 K/mm3 (0.1-0.6); Monocytes Percent Auto 6.2 % (2.6-8.5); Neutrophils Absolute Auto 5.9 K/mm3 (1.3-6.7); Neutrophils Percent Auto 66.9 % (45.5-73.1); Platelet Count Result 269 k/mm3 (150-375); Red Blood Count 4.52 M/mm3 (4.2-5.4); Red Cell Distribution Width 14.9 % (11.5-14.5); White Blood Count 8.8 K/mm3 (4.5-10.0)
[2023-01-19 10:58] LABS: Alanine Aminotransferase 29 U/L (6-35); Albumin Level 4.6 g/dL (3.5-5.1); Alkaline Phosphatase 58 U/L (38-126); Anion Gap 7 mmol/L (8-16); Aspartate Amino Transferase 25 U/L (14-36); Bilirubin,Total 0.7 mg/dL (0.2-1.3); Blood Urea Nitrogen 16 mg/dL (7-17); Calcium 9.7 mg/dL (8.4-10.2); Carbon Dioxide 30 mmol/L (22-30); Chloride 104 mmol/L (98-107); Estimated Glomerular Filt Rate > 60; Glucose 88 mg/dL (65-110); Potassium 3.6 mmol/L (3.4-5.0); Sodium 141 mmol/L (137-145)
[2023-01-19 11:12] LABS: Free T4 Free Thyroxine 1.35 ng/mL (0.78-2.19)
[2023-01-24 15:51] LABS: Vitamin D 1,25 (OH)2 Total 41 pg/mL (18-72); Vitamin D2 1,25 (OH)2 <8 pg/mL; Vitamin D3 1,25 (OH)2 41 pg/mL
== END 2023-01-19 09:35 | disposition home or self-care (01) ==
PROVIDERS: PCP Family Medicine; Visit Provider Nurse Practitioner Gerontology
DX: E04.9 Nontoxic goiter, unspecified (principal); E03.9 Hypothyroidism, unspecified; G89.29 Other chronic pain; I27.20 Pulmonary hypertension, unspecified; I45.10 Unspecified right bundle-branch block; I51.7 Cardiomegaly; M19.90 Unspecified osteoarthritis, unspecified site; Z96.651 Presence of right artificial knee joint; E55.9 Vitamin D deficiency, unspecified; E78.2 Mixed hyperlipidemia
CPT/HCPCS: 36415; 80053; 82607; 82652; 84439; 84443; 84480; 85025

== ENCOUNTER 2023-01-24 11:11 | Outpatient (CLI) | payer MEDICARE, SELFPAY ==
--- NOTE | ~2023-01-24 | XR_ITS ---
Supine and upright views of the abdomen Clinical history: Abdominal pain Findings: Bowel gas pattern is nonspecific. No evidence for obstruction or free air. No abnormal mass lesion or calcification is seen. Cholecystectomy clips present. Thoracic spine fixation hardware not ed. Bilateral hip arthroplasties present. Impression: Postoperative changes, as above. Nonspecific bowel gas pattern. Reviewed, dictated and finalized at [facility]. Impression: Postoperative changes, as above. Nonspecific bowel gas pattern.
--- NOTE | ~2023-01-24 | XR_ITS ---
Clinical Indication: Abdominal pain, shortness of breath PA and lateral views of the chest: Comparison: 10/05/2021 Findings: The lungs are clear, without evidence of focal consolidation or pleural effusion. Possible COPD. Cardiomediastinal silhouette is within normal limits. Stable thoracic spine fixation hardware n oted. Impression: Clear lungs. Possible COPD. Reviewed, dictated and finalized at location . Impression: Clear lungs. Possible COPD.
[2023-01-24 12:32] LABS: Hematocrit 41.3 % (37.0-47.0); Hemoglobin 13.1 g/dL (12.0-15.0); Mean Corpuscular HGB Conc 31.7 g/dl (32-36); Mean Corpuscular Hemoglobin 30.5 pg (26-34); Mean Platelet Volume 10.4 fl (7.4-10.4); Platelet Count Result 238 k/mm3 (150-375); Red Cell Distribution Width 14.8 % (11.5-14.5); White Blood Count 7.6 K/mm3 (4.5-10.0)
[2023-01-24 12:45] LABS: Alanine Aminotransferase 31 U/L (6-35); Albumin Level 4.6 g/dL (3.5-5.1); Alkaline Phosphatase 60 U/L (38-126); Amylase 117 U/L (30-110); Anion Gap 4 mmol/L (8-16); Aspartate Amino Transferase 28 U/L (14-36); Bilirubin,Total 0.6 mg/dL (0.2-1.3); Blood Urea Nitrogen 17 mg/dL (7-17); Calcium 9.4 mg/dL (8.4-10.2); Carbon Dioxide 30 mmol/L (22-30); Chloride 103 mmol/L (98-107); Estimated Glomerular Filt Rate > 60; Glucose 100 mg/dL (65-110); Lipase 64 U/L (23-300); Potassium 4.5 mmol/L (3.4-5.0); Sodium 137 mmol/L (137-145)
== END 2023-01-24 11:12 | disposition home or self-care (01) ==
PROVIDERS: PCP Family Medicine; Visit Provider Nurse Practitioner
DX: R06.02 Shortness of breath (principal); R10.9 Unspecified abdominal pain; R14.0 Abdominal distension (gaseous); R23.1 Pallor; Z96.651 Presence of right artificial knee joint
CPT/HCPCS: 36415; 71046; 74018; 80053; 82150; 83690; 85027

== ENCOUNTER 2023-01-28 06:36 | Outpatient (CLI) | payer MEDICARE, SELFPAY ==
--- NOTE | ~2023-01-28 | CT_ITS ---
EXAMINATION: CT abdomen pelvis w con INDICATION: Abdominal pain, possible hernia TECHNIQUE: Computed tomographic images of the abdomen and pelvis were obtained after the administrati on of 100 cc of Omnipaque 350 intravenous contrast. The dose-length product (DLP) was 911.48 mGy-cm. Automated exposure control and iterative reconstruction technique were employed. COMPARISON: 06/29/2022 FINDINGS: Minimal dependent atelectasis is present in the lung bases. The heart size is normal. The g allbladder is surgically absent. There is a stable 8 mm enhancing lesion in liver segment II, likely a flash filling hemangioma. The gallbladder is surgically absent. The spleen, and adrenal glands are normal. There is a stable cystic lesion in the head of the pancreas. Cysts of the left kidney measure up to 9 mm. No pathologically enlarged abdominal or pelvic lymph nodes are identified. No free intra peritoneal gas or evidence of bowel obstruction. There is a [place] supraumbilical hernia containin g a segment of the anterior wall of the nonobstructed transverse colon. A large volume of colonic sto ol is present. There are changes of bilateral hip arthroplasty. Severe thoracic and lumbar spondylosi s is noted. IMPRESSION: 1. [place] supraumbilical ventral hernia containing a segment of the anterior wall of the nonobstru cted transverse colon. Reviewed, dictated and finalized at location B. IMPRESSION: 1. [place] supraumbilical ventral hernia containing a segment of the anterior wall of the nonobstructed transverse colon.
== END 2023-01-28 06:37 | disposition home or self-care (01) ==
PROVIDERS: PCP Family Medicine; Visit Provider Nurse Practitioner
DX: R10.9 Unspecified abdominal pain (principal); K43.9 Ventral hernia without obstruction or gangrene
CPT/HCPCS: 74177; Q9967

== ENCOUNTER 2023-02-09 10:28 | Outpatient (CLI) | payer MEDICARE, SELFPAY ==
--- NOTE | ~2023-02-09 | US_ITS ---
EXAMINATION: US carotid duplex BI DATE: 02/09/2023 11:09 INDICATION: Carotid atherosclerosis and stenosis. Transient ischemic attack. TECHNIQUE: Grayscale, color Doppler, and pulsed Doppler images of the cervical carotid arteries were obtained. The degree of vessel stenosis is placed in one of the following categories: normal, <50%, 5 0-69%, >=70% but less than near-occlusion, near-occlusion, or total occlusion. Note that percent sten osis relative to normal distal artery lumen diameter is indirectly measured from velocity measurement s as described by Timothy, et al. Radiology 2003; 229:340-346. COMPARISON: 08/28/2021 FINDINGS: RIGHT: The right common carotid artery (CCA) peak systolic velocity (PSV) is 104 cm/s. The right internal ca rotid artery (ICA) PSV is 123 cm/s. The right ICA end-diastolic velocity (EDV) is 39 cm/s. The right ICA/CCA PSV ratio is 1.2. Grayscale and color Doppler images yield an estimate of <50% diameter reduc tion from minimal plaque in the ICA. The external carotid artery (ECA) PSV is 153 cm/s. There is ante grade flow in the right vertebral artery. LEFT: The left CCA PSV is 116 cm/s. The left ICA PSV is 127 cm/s. The left ICA EDV is 37 cm/s. The left ICA /CCA PSV ratio is 1.1. Grayscale and color Doppler images including secondary Doppler criteria yield an estimate of <50% diameter reduction from minimal plaque in the ICA. The ECA PSV is 116 cm/s. There is antegrade flow in the left vertebral artery. IMPRESSION: 1. <50% stenosis in the right internal carotid artery. 2. <50% stenosis in the left internal carotid artery. Reviewed, dictated and finalized at location A.
== END 2023-02-09 10:29 | disposition home or self-care (01) ==
PROVIDERS: PCP Family Medicine; Visit Provider Physician Assistant
DX: I65.23 Occlusion and stenosis of bilateral carotid arteries (principal)
CPT/HCPCS: 93880

== ENCOUNTER 2023-02-10 10:37 | Outpatient (CLI) | payer MEDICARE, SELFPAY ==
--- NOTE | ~2023-02-10 | MR_ITS ---
EXAMINATION: MR brain/brain stem wo/w con DATE: 02/10/2023 11:22 INDICATION: Stroke. Headache. TECHNIQUE: Magnetic resonance imaging (MRI) of the brain and brainstem was performed without and with 15 mL MultiHance intravenous contrast. COMPARISON: Brain MRI 06/22/2019 FINDINGS: There are old infarcts in the cerebellum bilaterally. There are scattered areas of nonspeci fic increased T2-weighted signal intensity in the cerebral white matter, which is within normal limit s for the patient's age. There is a small focus of old blood products in the right frontal lobe. Ther e is no acute infarction or abnormal intracranial mass lesion. The ventricles are normal in size. The re is mucosal thickening in the paranasal sinuses. There are likely changes of ocular lens replacemen t surgeries. The mastoid air cells are normal. IMPRESSION: 1. Old infarcts in the cerebellum. Reviewed, dictated and finalized at location A.
== END 2023-02-10 10:38 | disposition home or self-care (01) ==
PROVIDERS: PCP Family Medicine; Visit Provider Nurse Practitioner Gerontology
DX: R94.31 Abnormal electrocardiogram [ECG] [EKG] (principal); R55 Syncope and collapse; R51.9 Headache, unspecified; Z86.73 Personal history of transient ischemic attack (TIA), and cerebral infarction without residual deficits; R93.0 Abnormal findings on diagnostic imaging of skull and head, not elsewhere classified
CPT/HCPCS: 70553; A9577

== ENCOUNTER 2023-03-29 15:32 | Inpatient (IN) | payer MEDICARE, SELFPAY ==
[2023-03-24 15:28] VITALS: BMI 28.3
--- NOTE | 2023-03-24 15:46 | PC.NURSE ---
Report to the Outpatient Waiting Room, entrance under the green pavilion located off [facility], at time _9:00AM on date __03/28/23 . Planned Procedure Time: __11:00AM . Time changes happen often and if your time is changed the preop area will call you the afternoon before. - You and your visitor will be asked to self-screen and do not enter if you have any COVID symptoms. - A mask is optional within the hospital at this time. Patients may have clear liquids (water, carbonated beverages, clear teas, apple juice) until 3 hours prior to surgery with a maximum of 20 ounces. - No food from midnight until time of surgery Take the following medications with a SIP of water the morning of surgery: ___LEVOTHYROXINE, TRELEGY ELLIPTA INHALER DO NOT STOP ANY OF YOUR OTHER PRESCRIPTION MEDICATIONS PRIOR TO SURGERY ?EXCEPT THE FOLLOWING Medications to discontinue per physician ___HOLD ALL VITAMINS/SUPPLEMENTS 3 DAYS PRE-OP Date to take last dose___03/24/23 Please no make-up, nail sami, hairspray, perfume, deodorant, or body powder the day of surgery. No jewelry (including any body piercings) or valuables the day of surgery, leave them at home. Please take a shower or bath the night before, or the morning of, surgery with an antibacterial soap. Wear comfortable, loose fitting clothing. Children are encouraged to wear pajamas. - Jewelry must be removed prior to entering the operating room. Rings and piercings that are not removed may be cut off. - The hospital will not accept responsibility for valuables. - Please leave all valuables, including medications, at home the day of surgery. If you are going home after surgery, a licensed pile driver operator helper must drive you home. - NO public transportation without another adult if you receive anesthesia. - We recommend that an adult stay with you for 24 hours following discharge. - We also recommend that you do not drive, make important decision, drink alcoholic beverages, or take any drugs that were not prescribed by your health care provider for at least 24 hours after your discharge time. Follow any additional instructions given to you from your surgeon. HIBICLENS SHOWER MORNING OF SURGERY If you or anyone in your household have experienced Covid symptoms in the past week, please notify your surgeon or the nurse liaison at the phone number below for possible testing. Telephone instructions given to __DAUGHTER-JEYSON___and asked if any additional questions and then verbalized understanding. Patient advised to call surgeon office or pre surgery nurse liaison [phone] if any additional questions.
[2023-03-28] VITALS (18 sets, daily range): BP systolic 122–167; BP diastolic 50–99; PULSE 73–92; RESP 12–22; TEMP 36.2–37; O2SAT 96–100
--- NOTE | 2023-03-28 09:03 | WPDHPUPDATE1 ---
History and Physical Update Update Date/Time: 03/28/23 09:03 History and Physical has been reviewed, including an updated exam of the patient. There are NO changes in the patient's condition. Risks, benefits, and alternatives have been discussed and questions answered. Patient agrees to proceed with procedure.
[2023-03-28] MEDS: LACTATED RINGERS 1,000 ML 30 ML IV CONT ×2 (09:45→14:01)
[2023-03-28] MEDS: ACETAMINOPHEN 500 MG TABLET 1000 MG PO (09:45)
[2023-03-28] MEDS: KETOROLAC 15 MG/ML VIAL (*BKC) IV PUSH (09:45)
--- NOTE | 2023-03-28 10:57 | WPDANESEPPF ---
Anes - Initial Pre Proc Eval Procedure: Operation Date: 03/28/23 11:00 Proposed Procedures p Open Incisional Hernia Repair with Mesh - Jayson Ceballos MD Date/Time: 03/28/23 10:57 Surgeon: Jayson Ceballos MD Pre Op Diagnosis: reducible Incisional Hernia Patient Data Age: 82 Gender: F Height: 1.7 m Weight: 77.41 kg Last Vital Signs Temp 36.2 C L 03/28/23 09:50 Pulse 89 03/28/23 09:50 Resp 14 03/28/23 09:50 BP 139/69 03/28/23 09:50 Pulse Ox 100 03/28/23 09:50 O2 Del Method Room Air 03/28/23 09:50 Allergies Allergy/AdvReac Type Severity Reaction Status Date / Time meperidine Allergy Severe stroke Verified 03/28/23 09:55 like sx morphine Allergy Severe Anaphylaxis Verified 03/28/23 09:55 hydromorphone [From Dilaudid] AdvReac Vomiting Verified 03/28/23 09:55 Home Medications Medication Instructions Recorded Confirmed Type aspirin 81 mg tablet,delayed 81 mg PO DAILY 09/20/19 03/24/23 History release metaxalone 800 mg tablet 800 mg PO TID PRN Muscle Spasm 06/30/22 03/24/23 History cholecalciferol (vitamin D3) 10 10 mcg PO DAILY 02/01/23 03/24/23 History mcg (400 unit) capsule multivitamin 1 tablet PO DAILY 02/01/23 03/24/23 History polyethylene glycol 3350 17 17 g PO DAILY 02/01/23 03/24/23 History gram/dose oral powder (Miralax) vitamin K2 45 mcg capsule 45 mcg PO DAILY 02/01/23 03/24/23 History fluticasone fur. 100 mcg-umeclid 1 inh inhalation DAILY #1 ea 03/03/23 03/24/23 Rx 62.5 mcg-vilant 25 mcg inhalat.powder (Trelegy Ellipta) esomeprazole magnesium 40 mg 40 mg PO DAILY 03/24/23 03/24/23 History capsule,delayed release levothyroxine 100 mcg tablet 100 mcg PO QAM 03/24/23 03/24/23 History Patient hx anesthesia problems: post op nausea/vomiting Family hx anesthesia problems: none Results Review: All pre-operative results and documents have been reviewed as part of the pre-operative evaluation. [facility] Past Medical History Medical History Abdominal pain Abnormality of gait Acute back pain Acute nasopharyngitis Acute neck pain Allergic rhinitis Asthma exacerbation, mild Barretts esophagus Bronchitis Chest pain Choking Chronic gastritis without bleeding Chronic sinusitis Chronic sinusitis Cough Debility Dyspepsia Elevated blood sugar Encounter for surgical aftercare following surgery on the digestive system Eosinophil count raised Epigastric pain Fall Family history of colon cancer Fatigue Fatigue Gastritis Hiatal hernia without gangrene and obstruction Hip pain History of cerebrovascular accident (CVA) involving cerebellum Hypothyroidism (acquired) Hypoxemia LUQ abdominal pain Mixed hyperlipidemia Muscle cramps Muscle spasm of back Muscle spasms of both lower extremities Nonerosive esophageal reflux disease Other chronic pain Overweight (BMI 25.0-29.9) Pallor Palpitations Pancreatic cyst Postoperative hypothyroidism Rib pain on right side Shortness of breath Subacute sinusitis Transient cerebral ischemia Trochanteric bursitis of right hip Ventral hernia Weakness Surgical History Surgical History H/O hemicolectomy 06/30/22 Laparoscopic, hand assisted, Right Hemicolectomy History of bilateral hip replacements History of cholecystectomy History of colon surgery History of discectomy History of fusion of cervical spine History of lumbar fusion History of right knee joint replacement History of thyroidectomy, total Family History Family History Father Family history of tuberculosis, Onset Age: 72 Patient's father is Mother Hypertension Family history of elevated blood lipids Family history of cardiomyopathy Other Cerebrovascular accident Diabetes mellitus Social History Social History (Reviewed 03/28/23 @ 10:58 by James Durbin
[2023-03-28] MEDS: ceFAZolin 2 GM/D5W 50 ML 2 GM/50 ML BAG IVPB (11:05)
[2023-03-28] MEDS: LIDO 1%/EPINEPHRINE 1:100,000 50 ML VIAL INFILTRATE (11:47)
[2023-03-28] MEDS: BUPivacaine HCL 0.5% 10 ML AMP 30 ML INFILTRATE (11:48)
[2023-03-28] MEDS: fentaNYL CITRATE INJ (*CRX) 100 MCG/2 ML VIAL 25 MCG IV PUSH ×13 (13:39→23:36)
--- NOTE | 2023-03-28 13:40 | SUR.OPER ---
straight cath 250mL clear yellow urine at the end of the case
[2023-03-28] MEDS: ONDANSETRON INJ 4 MG/2 ML VIAL IV PUSH (14:07)
--- NOTE | 2023-03-28 14:31 | PM.OP ---
Procedure Note - Brief Procedure Note - Brief Date of procedure: 03/28/23 reducible Incisional Hernia Post-op diagnosis: Same Procedure performed: Open reducible incisional hernia repair with retrorectus placement Bard Weberh Surgeon: Jayson Ceballos MD Anesthesia: GETA Implants: 15 x 15 cm retrorectus Bard Softmesh Estimated blood loss (mL): 50 Urine output (mL): -250.0 Drains: Yes (15 fr JONAH x 1) Packing: No Pathology: Yes (Hernia sac to path) Complications: No immediate complications Condition: Stable Disposition: PACU
[2023-03-28] MEDS: HYDROmorphone HCL INJ (*CRX) 1 MG/ML SYR 0.25 MG IV PUSH ×3 (14:57→15:31)
--- NOTE | 2023-03-28 15:04 | SUR.PHASEI ---
1430 - dr. puente at bedside assessing pt 1445 - dr. jean at bedside assessing pt. spoke to pt about pain medication allergies. changed medication to help decrease pain level. pt states that pain is unbearable.
--- NOTE | 2023-03-28 18:15 | W.PM.PROC2 ---
Procedure Note - Detailed Date of Procedure 03/28/23 Pre-op Diagnosis reducible Incisional Hernia Post-op Diagnosis Same Procedure Performed Open reducible incisional hernia repair with retro rectus placement of Bard soft mesh. Surgeon Jayson Ceballos MD Fingerer Guilherme Rushing AIRLINE HOSTESS Anesthesia General Indications Patient is a 82-year-old female who had a hand assisted laparoscopic right hemicolectomy last year. She has now returned with a reducible incisional hernia at the hand port incision. The symptomatic and she wishes to have it repaired. Findings The hernia defect was located mid epigastric region. It was 8cm in length by 6cm in with. There were no incarcerated intra-abdominal contents within hernia sac. Description of Procedure After informed consent was obtained patient brought to the operating room she is placed in supine position and general endotracheal anesthesia was administered. An orogastric tube was placed decompress the stomach. The abdomen is then prepped and draped in usual sterile fashion. After time-out was then performed correctly identifying the patient as well as procedure to be performed verifying that the mesh was in the room and she was given perioperative IV antibiotics. I made a midline incision starting in the upper epigastric region extending only down to the umbilicus. Dissection carried down to subcutaneous tissues electrocautery into the hernia sac was encountered. Electrocautery very carefully dissected around the hernia sac and I reached the fascial edges. I then opened hernia sac to find no evidence of adhesions of omentum or bowel within the hernia sac. I then resected the hernia sac to the fascial edges with electrocautery and sent the hernia sac to the pathology lab. I then measured the defect was 8cm in length by 6cm in width. I then proceeded to perform a retro rectus placement of the mesh. With the fascial edges elevated with Mercedes clamps on the right side I incised the peritoneum and posterior rectus sheath electrocautery near the edge of the fascia. I released the fascia superiorly inferiorly and out laterally to the edge of the rectus muscle where the neurovascular bundles perforated. This was dome of blunt sponge and electrocautery dissection. A similar dissection was then performed on the left side of the abdominal wall. Superiorly inferiorly in the midline I released the posterior rectus fascia and peritoneum without dividing the linea alba. I made sure I had at least 5cm of circumferential dissection beyond the edges of the fascia. Once this is done with then closed the posterior rectus fashion and peritoneum utilizing a running 0 Vicryl suture. The chose a piece of Bard soft mesh measuring 15cm by 15cm. I then turned into a hernan configuration placed it into the retrorectus space on top of the posterior rectus fascia. I then secured the mesh with transfascial 0 PDS sutures placed with a suture passer at the 4 cardinal points. The mesh laid out very nicely with a small amount tension in the space. I then irrigated out the incision and mesh with sterile saline solution hemostasis was excellent. I then placed a 15 Thai round Prince drain on top of the mesh and it was brought out through the right lateral abdominal wall. It was then secured at the abdominal with 3-0 nylon suture. I then closed the rectus muscle and anterior rectus fascia over the mesh and drain. This was done with a running looped #1 PDS suture started at each an incision around to the middle. The subcutaneous tissues with sterile saline solution. I then closed the subcutaneous tissues in multiple layers utilizing interrupted 2-0 and 3-0 Vicryl sutures. The skin edges were then approximated utilizing skin thuy. The incision was then cleaned and then an island dressing was used for final dressing. A drain dressing was placed around the drain. The drain was placed to grenade bulb suction. The patient tolerated t
--- NOTE | 2023-03-28 20:11 | PC.NURSE ---
Pt arrived to the unit. Pt had no initial reports of pain. Pt began to experience pain and was treated with IV tylenol. Pt reports feeling some relief. Will continue to monitor pt.
[2023-03-28] MEDS: ceFAZolin 1 GM/NS 50 ML 1 GM/50 ML BAG IVPB (20:24)
[2023-03-29] VITALS (7 sets, daily range): BP systolic 123–152; BP diastolic 54–73; PULSE 78–91; RESP 14–18; TEMP 36.3–37.4; O2SAT 95–99
[2023-03-29] MEDS: oxyCODONE HCL (*CRX) 5 MG TAB IR PO ×2 (03:28→09:54)
[2023-03-29] MEDS: ceFAZolin 1 GM/NS 50 ML 1 GM/50 ML BAG IVPB ×2 (03:29→10:07)
[2023-03-29] MEDS: LEVOTHYROXINE SODIUM 100 MCG TABLET PO (06:11)
[2023-03-29] MEDS: fentaNYL CITRATE INJ (*CRX) 100 MCG/2 ML VIAL 25 MCG IV PUSH ×3 (06:21→16:46)
[2023-03-29] MEDS: ASPIRIN 81 MG ENTERIC TABLET PO (08:52)
[2023-03-29] MEDS: CHOLECALCIFEROL 400 UNITS TABLET (VIT D) PO (08:53)
[2023-03-29] MEDS: ENOXAPARIN 40 MG/0.4 ML SYRINGE SUB-Q (08:55)
[2023-03-29] MEDS: MULTIVITAMINS THERAPEUTIC TAB (*BKC) 1 TABLET PO (08:55)
[2023-03-29] MEDS: PANTOPRAZOLE 40 MG TABLET PO (08:56)
[2023-03-29] MEDS: FLUTICASONE/UMECLIDIN/VILANTER 100-62.5-25 MCG ELLIPTA 1 PUFF INHALATION (09:17)
--- NOTE | 2023-03-29 10:48 | WPDANESPN ---
Anes - Prog Note Post-Op Date/Time: 03/29/23 10:48 Cardiovascular status: normal Respiratory status: normal Airway patency: baseline Mental status: baseline Post-Op hydration status: normal Vital Signs: Last Vital Signs Temp 36.5 C 03/29/23 08:00 Pulse 78 03/29/23 08:00 Resp 14 03/29/23 08:00 BP 125/54 L 03/29/23 08:00 Pulse Ox 95 03/29/23 09:17 O2 Del Method Nasal Cannula 03/29/23 09:17 O2 Flow Rate 2 03/29/23 09:17 Pain Score (VAS): 10 I/O: Intake & Output 03/28/23 03/29/23 03/29/23 23:59 07:59 15:59 Intake Total 750 75 50 Output Total 30 400 Balance 720 -325 50 Post-procedural complaints: none Patient Feedback: Patient satisfied with anesthetic care.
[2023-03-29 14:10] LABS: Anion Gap 4 mmol/L (8-16); Blood Urea Nitrogen 13 mg/dL (7-17); Calcium 8.5 mg/dL (8.4-10.2); Carbon Dioxide 28 mmol/L (22-30); Chloride 103 mmol/L (98-107); Estimated CRCL calculation 72 ml/min; Estimated Glomerular Filt Rate > 60; Glucose 105 mg/dL (65-110); Potassium 3.9 mmol/L (3.4-5.0); Sodium 135 mmol/L (137-145)
--- NOTE | 2023-03-29 14:44 | WPDPN ---
Progress Note: A&P Assessment and Plan (1) Incisional hernia without mention of obstruction or gangrene: Qualifiers: Obstruction and gangrene presence: without obstruction or gangrene Qualified Code(s): K43.2 - Incisional hernia without obstruction or gangrene Code(s): K43.2 - Incisional hernia without obstruction or gangrene Status: Acute Assessment and Plan: POD 1, S/P open reducible incisional hernia repair with retrorectus placement of Bard Softmesh. Doing Ok, will need to get her up to a chair, incentive spirometry, deep cough for pulmonary toilet. Will check labs in am. Leave tan in place until she is ambulatory. Continue supportive post op care. Subjective Date/time seen: 03/29/23 14:44 Interval history: Pt having moderate incisional pain. No nausea or emesis. No flatus or BM yet. Taking Oxycodone 5 mg PO and IV fentanyl for breakthrough. She has not been out of bed yet. Tan catheter just placed for urinary retention and large amount of urine in bladder on scan. Not taking much PO yet. Review of Systems Review of Systems: The remainder of the review of systems to include constitutional, HEENT, cardiovascular, respiratory, GI, , integumentary, musculoskeletal, endocrine, immunologic, hematologic, psychiatric, and neurologic are all negative except for which is mentioned above in the HPI. Exam Const: General: comfortable and no acute distress Eyes: Sclera: sclerae normal Pupils: Equal, round and reactive pupils present Neck: Neck: supple and no JVD Resp: Effort & Inspection: normal respiratory effort Auscultation: clear to auscultation bilaterally Cardio: Rate: regular rate Rhythm: regular rhythm GI: Other: Abd soft, mild distension, hypoactive bowel sounds. Midline incision dressed, dressing dry. JONAH drain typical bloody serous output. Urinary Catheter: Urinary Catheter: urine dark Psych: Mental Status: mental status grossly normal Affect: normal affect Objective Data Vital Signs Vital Signs: Vital Signs - 24 hr 03/28/23 14:45 03/28/23 15:00 03/28/23 15:15 Temperature Pulse Rate 73 79 85 Respiratory Rate 14 12 16 Blood Pressure 167/76 H 167/76 H 147/99 H Pulse Oximetry 97 96 98 Oxygen Delivery Nasal Cannula Nasal Cannula Nasal Cannula Oxygen Flow Rate 2 2 2 03/28/23 15:30 03/28/23 15:45 03/28/23 15:55 Temperature Pulse Rate 83 76 83 Respiratory Rate 14 18 22 H Blood Pressure 141/59 H 159/64 H 140/57 L Pulse Oximetry 97 98 97 Oxygen Delivery Nasal Cannula Nasal Cannula Nasal Cannula Oxygen Flow Rate 2 2 2 03/28/23 20:11 03/28/23 16:30 03/28/23 16:45 Temperature 36.4 C 36.2 C L 36.2 C L Pulse Rate 80 81 87 Respiratory Rate 20 16 16 Blood Pressure 140/50 L 138/54 L 134/51 L Pulse Oximetry 98 97 97 Oxygen Delivery Oxygen Flow Rate 03/28/23 17:15 03/28/23 18:15 03/28/23 23:45 Temperature 36.2 C L 36.2 C L 37.0 C Pulse Rate 83 85 83 Respiratory Rate 16 16 18 Blood Pressure 127/54 L 135/53 L 122/64 Pulse Oximetry 99 98 99 Oxygen Delivery Oxygen Flow Rate 03/29/23 03:49 03/29/23 08:00 03/29/23 09:17 Temperature 36.3 C L 36.5 C Pulse Rate 79 78 Respiratory Rate 18 14 Blood Pressure 123/57 L 125/54 L Pulse Oximetry 98 98 95 Oxygen Delivery Nasal Cannula Oxygen Flow Rate 2 03/29/23 12:00 Temperature 37.4 C Pulse Rate 78 Respiratory Rate 14 Blood Pressure 130/59 L Pulse Oximetry 97 Oxygen Delivery Oxygen Flow Rate Intake/Output Intake/Output: Intake & Output 03/26/23 03/27/23 03/28/23 03/29/23 23:59 23:59 23:59 23:59 Intake Total 900 125 Output Total 320 400 Balance 580 -275 Meds/Results Medications: Active Medications Generic Name Dose Route Start Last Admin Trade Name Freq PRN Reason Stop Dose Admin Aspirin 81 mg 03/29/23 09:00 03/29/23 08:52 Aspirin 81 Mg Enteric Tablet PO 81 mg DAILY CONNER Administration Diazepam 5 mg
--- NOTE | 2023-03-29 15:27 | PCOTNOTE ---
Attempted to see pt. for occupational therapy evaluation. Pt. declined to participate at this time stating that she had too much abdominal pain, agreeable to start therapy tomorrow. Nursing aware.
[2023-03-29] MEDS: METAXALONE 800 MG TABLET PO ×2 (16:45→20:31)
[2023-03-29] MEDS: LACTATED RINGERS 1,000 ML 100 ML IV CONT (18:47)
--- NOTE | 2023-03-29 18:47 | PC.NURSE ---
Pt is A&O4 female who has participated and contributed in plan of care. Pt has reported having nausea and has reported feeling pain. Pt had one episode of vomiting. Pt had tan catheter placed due to retention. Pt expresses no needs at this time. Will continue to monitor pt.
[2023-03-29] MEDS: KETOROLAC 30 MG/ML VIAL (*BKC) IV PUSH (20:30)
[2023-03-30 04:00] VITALS: BP 138/65; PULSE 86; RESP 18; TEMP 36.3; O2SAT 97
[2023-03-30 05:53] LABS: Basophils Percent Auto 0.6 % (0.2-1.2); Eosinophils Absolute Auto 0.7 K/mm3 (0-0.3); Eosinophils Percent Auto 9.7 % (0-4.4); Hematocrit 32.8 % (37.0-47.0); Hemoglobin 10.4 g/dL (12.0-15.0); Immature Granulocyte Absolute 0.02 K/mm3 (0.00-0.031); Immature Granulocyte Percent A 0.3 % (0-0.5); Lymphocytes Absolute Auto 0.87 K/mm3 (0.9-3.2); Mean Corpuscular HGB Conc 31.7 g/dl (32-36); Mean Corpuscular Hemoglobin 30.7 pg (26-34); Mean Corpuscular Volume 96.8 fl (80-100); Mean Platelet Volume 10.8 fl (7.4-10.4); Monocytes Absolute Auto 0.6 K/mm3 (0.1-0.6); Neutrophils Absolute Auto 4.5 K/mm3 (1.3-6.7); Neutrophils Percent Auto 67.4 % (45.5-73.1); Platelet Count Result 161 k/mm3 (150-375); Red Blood Count 3.39 M/mm3 (4.2-5.4); Red Cell Distribution Width 13.7 % (11.5-14.5); White Blood Count 6.7 K/mm3 (4.5-10.0)
[2023-03-30 06:01] LABS: Alanine Aminotransferase 29 U/L (6-35); Albumin Level 3.3 g/dL (3.5-5.1); Alkaline Phosphatase 51 U/L (38-126); Anion Gap 4 mmol/L (8-16); Aspartate Amino Transferase 27 U/L (14-36); Bilirubin,Total 0.5 mg/dL (0.2-1.3); Blood Urea Nitrogen 11 mg/dL (7-17); Calcium 8.2 mg/dL (8.4-10.2); Carbon Dioxide 28 mmol/L (22-30); Chloride 103 mmol/L (98-107); Estimated CRCL calculation 61 ml/min; Estimated Glomerular Filt Rate > 60; Glucose 96 mg/dL (65-110); Potassium 3.6 mmol/L (3.4-5.0); Sodium 135 mmol/L (137-145)
[2023-03-30] MEDS: LACTATED RINGERS 1,000 ML 100 ML IV CONT (06:31)
[2023-03-30] MEDS: LEVOTHYROXINE SODIUM 100 MCG TABLET PO (06:33)
[2023-03-30] MEDS: CHOLECALCIFEROL 400 UNITS TABLET (VIT D) PO (08:25)
[2023-03-30] MEDS: FLUTICASONE/UMECLIDIN/VILANTER 100-62.5-25 MCG ELLIPTA 1 PUFF INHALATION (08:25)
[2023-03-30] MEDS: MULTIVITAMINS THERAPEUTIC TAB (*BKC) 1 TABLET PO (08:25)
[2023-03-30] MEDS: DOCUSATE SODIUM 100 MG CAPSULE PO (08:26)
[2023-03-30] MEDS: ENOXAPARIN 40 MG/0.4 ML SYRINGE SUB-Q (08:26)
[2023-03-30] MEDS: PANTOPRAZOLE 40 MG TABLET PO (08:26)
[2023-03-30] MEDS: ASPIRIN 81 MG ENTERIC TABLET PO (08:26)
[2023-03-30] MEDS: polyethylene glycoL 3350 17 GM POWD.PACK PO (08:27)
[2023-03-30 08:28] VITALS: O2SAT 94
[2023-03-30] MEDS: KETOROLAC 30 MG/ML VIAL (*BKC) IV PUSH (09:24)
[2023-03-30 10:53] VITALS: O2SAT 94; O2SAT 97
[2023-03-30 12:00] VITALS: BP 127/59; PULSE 87; RESP 14; TEMP 36.4; O2SAT 96
--- NOTE | 2023-03-30 12:19 | PM.PNGS ---
Progress Note: A&P Assessment and Plan (1) Incisional hernia without mention of obstruction or gangrene: Qualifiers: Obstruction and gangrene presence: without obstruction or gangrene Qualified Code(s): K43.2 - Incisional hernia without obstruction or gangrene <ERICA FriendP - Last Filed: 03/30/23 13:09> Code(s): K43.2 - Incisional hernia without obstruction or gangrene <Angelina EvansBONIFACIO - Last Filed: 03/30/23 13:09> Status: Acute <ERICA FriendP - Last Filed: 03/30/23 13:09> Assessment and Plan: POD 2 open reducible incisional hernia repair with retrorectus placement of Bard Softmesh. Doing better today and taking in more liquids. Tolerating full liquid diet with Ensure supplements. Will advance to soft diet and decrease IV fluids. Remove Epps catheter today now that she is ambulatory. Continue IS and increasing activity with PT/OT. Patient may need rehab and placement in a snf facility on discharge depending on physical therapy's recommendations. I have personally seen and evaluated the patient today with REGULATORY LAW SPECIALIST.? ? I have reviewed any new relevant radiographic and laboratory results.? I have reviewed the silva elements of the patient's current surgical or medical problems and I have personally performed a substantive portion of the care for this patient.? I personally performed the pertinent physical exam and reviewed and confirmed the patient's medicine list.? ? I have formulated the surgical care plan and I agree with the documented note above. <Angelina Evans FOOD TRUCK CATERER - Last Filed: 03/30/23 13:09> POD 2 open reducible incisional hernia repair with retrorectus placement of Bard Softmesh. Doing better today and taking in more liquids. Tolerating full liquid diet with Ensure supplements. I have personally seen and evaluated the patient today with REGULATORY LAW SPECIALIST.? ? I have reviewed any new relevant radiographic and laboratory results.? I have reviewed the silva elements of the patient's current surgical or medical problems and I have personally performed a substantive portion of the care for this patient.? I personally performed the pertinent physical exam and reviewed and confirmed the patient's medicine list.? ? I have formulated the surgical care plan and I agree with the documented note above. <Jayson Ceballos MD - Last Filed: 03/30/23 12:50> Assessment and Plan: I have discussed the patient's case and plan of care with Dr. Ceballos. <BONIFACIO Friend - Last Filed: 03/30/23 13:09> Subjective Subjective Date/Time Seen: 03/30/23 12:19 <BONIFACIO Friend - Last Filed: 03/30/23 13:09> Post Op day: 2 (Open reducible incisional hernia repair with retro rectus placement of Bard soft mesh) <BONIFACIO Friend - Last Filed: 03/30/23 13:09> Patient reports: no new complaints, feels better, pain is less, tolerating liquids well, flatus, no bowel movement and afebrile <BONIFACIO Friend - Last Filed: 03/30/23 13:09> Interval history: Patient feeling much better today. She no longer is having abdominal muscle spasms and feels like her abdominal pain is much better controlled with the muscle relaxant. She denies any nausea today. She had some nausea yesterday, but no vomiting. She worked with physical therapy this morning and walked to the door and back to the chair. She is sitting in the chair now. She has the Epps in place with 550 cc urine output overnight last night. She is drinking fluids much better this morning. She did not eat much off her full liquid tray for breakfast, but that was because she didn't like the cream of wheat. <BONIFACIO Friend - Last Filed: 03/30/23 13:09> Exam Const: General: comfortable and no acute distress <BONIFACIO Friend - Last Filed: 03/30/23 13:09> Orientation/consciousness: patient oriented x3 <BONIFACIO Friend - Last Filed: 03/30/23 13:09> Resp: Effort & Inspection: normal respiratory effort
[2023-03-30] MEDS: POTASSIUM CHLORIDE INJ 40 MEQ in SODIUM CHLORIDE 0.9% IV 500 ML 130 MEQ IVPB (13:22)
[2023-03-30] MEDS: ACETAMINOPHEN 325 MG TABLET 650 MG PO ×2 (13:22→22:32)
--- NOTE | 2023-03-30 16:43 | PC.NURSE ---
Pt has had fewer reports of pain today. Pt was switched to PO tylenol and is tolerating well. Pt was up in chair for part of the day. Pt's tan was removed per provider order. Pt worked with therapy today. Pt has had family visiting with her off and on all day. Pt does not express any needs at this will continue to monitor pt for any changes in status.
--- NOTE | 2023-03-30 16:59 | PCPTNOTE ---
On 03/30/23, the student, [Cass Cta], provided care and completed [facility] documentation on this patient. I have reviewed the student's documentation and agree with the findings.
[2023-03-30] MEDS: oxyCODONE HCL (*CRX) 5 MG TAB IR PO (19:47)
[2023-03-30 20:00] VITALS: BP 144/63; PULSE 84; RESP 16; TEMP 36; O2SAT 92
[2023-03-30 20:30] VITALS: PULSE 84; RESP 16; O2SAT 92
[2023-03-31] VITALS: BP 134/61; PULSE 95; RESP 14; TEMP 35.7; O2SAT 90
[2023-03-31 04:00] VITALS: BP 144/93; PULSE 94; RESP 18; TEMP 35.7; O2SAT 93
[2023-03-31] MEDS: ACETAMINOPHEN 325 MG TABLET 650 MG PO ×2 (05:49→15:01)
[2023-03-31] MEDS: LEVOTHYROXINE SODIUM 100 MCG TABLET PO (05:49)
[2023-03-31] MEDS: FLUTICASONE/UMECLIDIN/VILANTER 100-62.5-25 MCG ELLIPTA 1 PUFF INHALATION (07:27)
[2023-03-31 07:30] VITALS: O2SAT 94
[2023-03-31] MEDS: oxyCODONE HCL (*CRX) 5 MG TAB IR PO (08:30)
[2023-03-31] MEDS: polyethylene glycoL 3350 17 GM POWD.PACK PO (08:31)
[2023-03-31] MEDS: MULTIVITAMINS THERAPEUTIC TAB (*BKC) 1 TABLET PO (08:32)
[2023-03-31] MEDS: ENOXAPARIN 40 MG/0.4 ML SYRINGE SUB-Q (08:32)
[2023-03-31] MEDS: ASPIRIN 81 MG ENTERIC TABLET PO (08:33)
[2023-03-31] MEDS: CHOLECALCIFEROL 400 UNITS TABLET (VIT D) PO (08:33)
[2023-03-31] MEDS: PANTOPRAZOLE 40 MG TABLET PO (08:33)
[2023-03-31] MEDS: DOCUSATE SODIUM 100 MG CAPSULE PO (08:33)
[2023-03-31 14:00] VITALS: BP 131/55; PULSE 83; RESP 14; TEMP 36.1; O2SAT 95
--- NOTE | 2023-03-31 14:14 | PM.DS ---
DS: Admitting Diagnosis Discharge Date 03/31/2023 Admitting Diagnosis Reducible incisional hernia DS: Discharge Diagnosis Discharge Diagnosis (1) Incisional hernia without mention of obstruction or gangrene: Qualifiers: Obstruction and gangrene presence: without obstruction or gangrene Qualified Code(s): K43.2 - Incisional hernia without obstruction or gangrene Code(s): K43.2 - Incisional hernia without obstruction or gangrene Status: Acute DS: Summary Hospital Course Reason for hospitalization: This is an 82-year-old woman who had a hand assisted laparoscopic right hemicolectomy last year. She was evaluated in our office and found to have a reducible incisional hernia at the hand port incision. Decision was made to proceed with surgical repair and she was scheduled for surgery accordingly. Hospital Course: She underwent open reducible incisional hernia repair with retro rectus placement of Bard soft mesh by Dr. Ceballos on 03/28/2023. She was admitted postoperatively for monitoring. She also had a JONAH drain in place following surgery. She was having postoperative incisional pain and some muscle spasms that were treated with analgesics and muscle relaxants. After starting the muscle relaxants, she felt her pain significantly improved. She was then able to get up to the chair and work with physical therapy PT and OT were ordered and have worked with her postoperatively. She had urinary retention postop day 1 and had a Epps catheter in place until she was ambulatory. [place] that her urinary retention was related to trying to void in bed with a bedpan when she was unable to get out of bed initially. Once her incisional pain was controlled and she was able to get up to the chair, her Epps catheter was removed and she was voiding without any complications. Her diet was slowly advanced following surgery. Initially, she was not taking in much liquids and was started on maintenance IV fluids. Labs were monitored and her kidney function was normal. Her appetite returned after her pain was better controlled and she is now tolerating a solid diet. PT recommended continued therapy on discharge and care [facility] will be discharged to [facility] with eventual plan to go back home where she lives alone. Discussed with Dr. Ceballos and feels patient is stable for discharge today. JONAH drain removed prior to discharge. Plan to follow up with Dr. Ceballos as an outpatient as scheduled. Status at Discharge Functional status at discharge: uses cane/walker Overall status at discharge: patient is progressing back to baseline Time Spent with Patient Time attestation: Total time spent providing and/or coordinating discharge services: Time spent: Greater than 30 minutes Exam Const: General: comfortable and no acute distress Orientation/consciousness: patient oriented x3 Resp: Effort & Inspection: normal respiratory effort Auscultation: clear to auscultation bilaterally Cardio: Rate: regular rate Rhythm: regular rhythm GI: Inspection: non-distended, incision (dry and thuy intact, no erythema or drainage) and other (JONAH drain with serosanguineous drainage) GI Palp: Yes Soft to palpation, Yes Tenderness to palpation present (GI) (incisional) and No Guarding due to palpation present (GI) Auscultation: normal bowel sounds Extrem: General: no calf tenderness and no edema Psych: Mental Status: mental status grossly normal Affect: normal affect DS: Data Data Completed and Pending Completed studies during hospitalization: Pending at discharge 03/28/23 13:12 Surgical [PTH] Routine Procedures/Treatments: Procedures Operation Date: 03/28/23 11:00 Actual Procedure Side Surgeon p Open Incisional Hernia Repair with Mesh Jayson Ceballos MD Discharge Plan Discharge Attending physician on discharge: Jayson Ceballos Discharging Clinician: Angelina Evans Anticip
== END 2023-03-31 17:10 | DRG 355 ==
LOC: ANHSURGERY 15:44 → ANH3MEDSUR 15:44
PROVIDERS: Nurse Practitioner Family; Admitting Provider Surgery; PCP Family Medicine; Visit Provider Surgery
PROC: 0WQF0ZZ Repair Abdominal Wall, Open Approach (ICD-10-PCS; principal; 2023-03-28 11:00)
DX: K43.2 Incisional hernia without obstruction or gangrene (principal); E78.2 Mixed hyperlipidemia; E89.0 Postprocedural hypothyroidism; J45.909 Unspecified asthma, uncomplicated; J32.9 Chronic sinusitis, unspecified; K29.50 Unspecified chronic gastritis without bleeding; K22.70 Barrett's esophagus without dysplasia; K21.9 Gastro-esophageal reflux disease without esophagitis; K44.9 Diaphragmatic hernia without obstruction or gangrene; R33.9 Retention of urine, unspecified; Z96.651 Presence of right artificial knee joint; Z96.643 Presence of artificial hip joint, bilateral; Z86.73 Personal history of transient ischemic attack (TIA), and cerebral infarction without residual deficits; Z98.1 Arthrodesis status; Z80.0 Family history of malignant neoplasm of digestive organs
CPT/HCPCS: 36415; 80048; 80053; 85025; 88302; 94640; 97110; 97161; 97165; 97530; 97535; A9270; C1781; C9290; J0131; J0330; J0690; J1170; J1650; J1885; J2370; J2405; J2710; J3010; J3480; J7040; J7120

== ENCOUNTER 2023-04-07 11:30 | Inpatient (IN) | payer MEDICARE, SELFPAY ==
[2023-04-07] VITALS (30 sets, daily range): BP systolic 117–143; BP diastolic 55–84; PULSE 69–99; RESP 13–33; TEMP 36.3–36.9; O2SAT 90–100; BMI 28.6
--- NOTE | ~2023-04-07 | XR_ITS ---
Supine and upright views of the abdomen Clinical history: Nausea COMPARISON: 01/24/2023 Findings: Surgical thuy noted vertically in the midline. Bowel gas pattern is nonspecific. No evid ence for obstruction or free air. No abnormal mass lesion or calcification is seen. Thoracic spinal f ixation hardware is unchanged. Bilateral hip arthroplasties are present. Impression: Nonspecific bowel gas pattern. Reviewed, dictated and finalized at location . Impression: Nonspecific bowel gas pattern.
--- NOTE | ~2023-04-07 | US_ITS ---
EXAMINATION: US venous doppler [facility] DATE: 04/07/2023 16:32 INDICATION: Pulmonary embolism. Elevated d-dimer. TECHNIQUE: Grayscale ultrasound images without and with compression and Doppler ultrasound images of the bilateral lower extremity veins were obtained. COMPARISON: None. FINDINGS: The visualized portions of right common femoral vein, profunda (deep) femoral vein, femoral vein, pop liteal vein, posterior tibial veins, peroneal veins, gastrocnemius vein and greater saphenous vein ou tflow are patent. There is noncompressible occlusive appearing deep venous thrombosis in the left gastrocnemius vein. T he visualized portions of left common femoral vein, profunda femoral vein, femoral vein, popliteal ve in, posterior tibial veins, peroneal veins and greater saphenous vein outflow are patent. IMPRESSION: 1. No deep venous thrombosis in the right lower limb. 2. Occlusive appearing deep venous thrombosis in the left gastrocnemius vein. No other deep venous th rombosis in the left lower limb. Reviewed, dictated and finalized at location A. IMPRESSION: 1. No deep venous thrombosis in the right lower limb. 2. Occlusive appearing deep venous thrombosis in the left gastrocnemius vein. N o other deep venous thrombosis in the left lower limb.
--- NOTE | ~2023-04-07 | CT_ITS ---
EXAMINATION: CTA chest PE abdomen pel DATE: 04/07/2023 12:08 INDICATION: Chest and abdominal pain post hernia repair TECHNIQUE: Computed tomography angiography (CTA) of the chest was performed with 100 mL Omnipaque-350 intravenous contrast timed to evaluate the pulmonary arteries. Subsequent postcontrast images of the abdomen and pelvis are obtained. Coronal maximum intensity projection 3D-reconstructions were create d by the technologist. The dose-length product (DLP) was 1665.62 mGy-cm. Automated exposure control a nd iterative reconstruction technique were employed. COMPARISON: 01/28/2023 FINDINGS: CTA CHEST: The pulmonary arteries are well-opacified. There are pulmonary emboli in subsegmental bran ches of the right upper, middle and lower lobes. There are also pulmonary emboli in the distal aspect of the left main pulmonary artery, segmental branch of the lingula, and in subsegmental branches of the left lower lobe. There is a small right pleural effusion. Cardiomegaly is noted. There is enlarge ment of the main and central pulmonary arteries, consistent with pulmonary hypertension. There is ate lectasis of the lingula, right middle lobe, and dependently in the lower lobes. There is no pneumotho rax. No pathologically enlarged thoracic lymph nodes are identified. There is a 1.2 cm nodule of the right thyroid lobe. There is severe thoracic spondylosis. ABDOMEN/PELVIS CT: The gallbladder is surgically absent. There is mild enlargement of the common bile duct and central intrahepatic ducts which is likely due to post cholecystectomy state. Punctate calc ifications in an otherwise normal spleen likely represent healed granulomatous disease. There is a 4 mm cyst of the left hepatic lobe. Again noted is a stable cystic lesion in the head of the pancreas. There are changes of interval mesh ventral hernia repair. There are also surgical changes of the righ t colon. There is severe lumbar spondylosis. Changes of bilateral hip arthroplasty are noted. IMPRESSION: 1. Acute bilateral pulmonary emboli. 2. Cardiomegaly. 3. Changes of mesh ventral hernia repair without acute findings of the abdomen. These findings were discussed with the Emergency Department at 1229 hours on 04/07/2023. Reviewed, dictated and finalized at location L.
--- NOTE | 2023-04-07 11:34 | ECG_ITS ---
Measurements Intervals [place] Rate: 95 P: 44 NH: 135 QRS: -18 QRSD: 101 T: -30 QT: 347 QTc: 436 Interpretive Statements SINUS RHYTHM INCOMPLETE RIGHT BUNDLE BRANCH BLOCK [90+ ms QRS DURATION, TERMINAL R IN V1/V2, 40+ ms S IN I/aVL/V4/V5/V6] MODERATE VOLTAGE CRITERIA FOR LVH, CONSIDER NORMAL VARIANT [MEETS CRITERIA IN ONE OF: R(aVL), S(V1), R(V5), R(V5/V6)+S(V1)] MODERATE T-WAVE ABNORMALITY, CONSIDER ANTEROLATERAL ISCHEMIA [-0.1+ mV T-WAVE IN V3- V6] ABNORMAL ECG COMPARED TO ECG 06/30/2022 09:09:30 NO SIGNIFICANT CHANGES Electronically Signed On 04-13-2023 12:09:14 CDT by Gurpreet Kirkland M.D.
--- NOTE | 2023-04-07 12:24 | ED.SOB ---
HPI - SOB/Dyspnea General Chief Complaint: Shortness of Breath/Dyspnea Stated Complaint: sob Time Seen by Provider: 04/07/23 12:02 History of Present Illness HPI Narrative: Patient is an 82-year-old female presenting with right-sided chest and abdominal pain. Patient states that she had a hernia repair about a week ago. She has been at [facility] since then. States that for the last couple of days she has had right-sided chest and upper abdominal pain. States that it is worse with taking deep breaths. Blood work was done at her rehab center and her dimer was elevated so they sent her in for a CT. Patient states she feels like she can only take shallow breaths but she does not really feel short of breath. Denies left-sided chest pain. No numbness or weakness. No nausea or vomiting. No diarrhea. States she had a normal bowel movement yesterday. No leg swelling. Related Data Home Medications Medication Instructions Recorded Confirmed aspirin 81 mg tablet,delayed 81 mg PO DAILY 09/20/19 04/07/23 release metaxalone 800 mg tablet 800 mg PO TID PRN Muscle Spasm 06/30/22 04/07/23 cholecalciferol (vitamin D3) 10 10 mcg PO DAILY 02/01/23 04/07/23 mcg (400 unit) capsule multivitamin 1 tablet PO DAILY 02/01/23 04/07/23 polyethylene glycol 3350 17 17 g PO DAILY 02/01/23 04/07/23 gram/dose oral powder (Miralax) vitamin K2 45 mcg capsule 45 mcg PO DAILY 02/01/23 04/07/23 esomeprazole magnesium 40 mg 40 mg PO DAILY 03/24/23 04/07/23 capsule,delayed release levothyroxine 100 mcg tablet 100 mcg PO QAM 03/24/23 04/07/23 oxycodone 5 mg tablet 5 mg PO Q6H PRN Pain Rated 7-10 04/07/23 04/07/23 senna-docusate sodium tablet 1 tablet PO DAILY 04/08/23 04/08/23 Allergies Allergy/AdvReac Type Severity Reaction Status Date / Time meperidine Allergy Severe stroke Verified 04/07/23 11:44 like sx morphine Allergy Severe Anaphylaxis Verified 04/07/23 11:44 hydromorphone [From Dilaudid] AdvReac Vomiting Verified 04/07/23 11:44 Review of Systems Review of Systems: All systems reviewed & are unremarkable except as noted in HPI and below PMFSH Past Medical History Medical History (Updated 04/07/23 @ 21:28 by Yi Ramirez MD) Abdominal pain Abnormality of gait Acute back pain Acute nasopharyngitis Acute neck pain Allergic rhinitis Asthma exacerbation, mild Barretts esophagus Bronchitis Chest pain Choking Chronic gastritis without bleeding Chronic sinusitis Chronic sinusitis Cough Debility Dyspepsia Elevated blood sugar Encounter for surgical aftercare following surgery on the digestive system Eosinophil count raised Epigastric pain Fall Family history of colon cancer Fatigue Fatigue Gastritis Hiatal hernia without gangrene and obstruction Hip pain History of cerebrovascular accident (CVA) involving cerebellum Hypothyroidism (acquired) Hypoxemia LUQ abdominal pain Mixed hyperlipidemia Muscle cramps Muscle spasm of back Muscle spasms of both lower extremities Nonerosive esophageal reflux disease Other chronic pain Overweight (BMI 25.0-29.9) Pallor Palpitations Pancreatic cyst Postoperative hypothyroidism Rib pain on right side Shortness of breath Subacute sinusitis Transient cerebral ischemia Trochanteric bursitis of right hip Ventral hernia Weakness Surgical History Surgical History (Updated 04/09/23 @ 13:35 by Yi Ramirez MD) H/O hemicolectomy 06/30/22 Laparoscopic, hand assisted, Right Hemicolectomy History of bilateral hip replacements History of cholecystectomy History of colon surgery History of discectomy History of fusion of cervical spine History of incisional hernia repair 03/28/2023 History of lumbar fusion History of right knee joint replacement History of thyroidectomy, total Family History Family History Father Patient's father is Family history of tuberculosis, Onset Age:
[2023-04-07] MEDS: HEPARIN SODIUM 5,000 UNITS/ML VIAL 6000 UNITS IV PUSH (12:58)
[2023-04-07] MEDS: HEPARIN SOD/D5W 100 UNITS/ML 25,000 UNITS/250 ML BAG 13 UNITS IV CONT (12:58)
[2023-04-07 13:09] LABS: INR 1.3
--- NOTE | 2023-04-07 13:21 | PM.IMHP ---
H&P: HPI History of Present Illness Date/Time: 04/07/23 13:21 Chief Complaint: Shortness of breath Narrative: This is an 82-year-old female patient who comes from [facility]. 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 Foster on 06/30/2022. The patient developed an incisional hernia CT performed on 01/28/2023 showed white mouth supraumbilical ventral hernia containing a segment of the anterior wall of the nonobstructed transverse colon. On the patient was evaluated by her physician it revealed a 7 cm incisional hernia. Surgical repair was recommended. She was seen by Dr. Ceballos on 03/23/2023. She presented to [facility] on 03/28 23 be for her scheduled surgery and underwent an open reducible incisional hernia repair with retrorectus placement of Bard soft mesh by Dr. Ceballos. She was admitted to the [facility] facility on 04/01/2023. The patient came to the emergency room today with right-sided chest pain and abdominal pain. The patient has a hernia repair proximally 1 week ago. The last couple days she has had right-sided chest pain and upper abdominal pain. Patient had difficulty taking deep breaths. Her D-dimer was found to be elevated. Her white count is 10.3. H&H is 11.3 and 35.7. ABGs performed and pH is 7.521. CO2 26.7. Sodium 132. Chest abdomen and pelvis CTa1. Acute bilateral pulmonary emboli. 2. Cardiomegaly. 3. Changes of mesh ventral hernia repair without acute findings of the abdomen. The patient was hyperventilating in the emergency room complaining of chest discomfort. Patient has multiple allergies and was given fentanyl. The patient continued to ask for Toradol. I explained to the patient that she could not receive Toradol at this time because she is on heparin drip. The Toradol would interact with the heparin and could cause some bleeding. Patient is having some expiratory wheezes in the son stated that she recently was treated for pneumonia. The patient was given a neb treatment and given Solu-Medrol. The patient is being admitted to observation status on the date of service of 04/07/2023. Review of Systems Review of Systems: All systems reviewed & are unremarkable except as noted in HPI and below Constitutional: Constitutional: Reports as per HPI and Reports no additional constitutional complaints Eyes: Eyes: Reports as per HPI and Reports no additional eye complaints ENT: Reports system reviewed and no additional complaints, except as documented and Reports Normal hearing present Cardiovascular: Cardiovascular: Reports no additional cardiovascular complaints Respiratory: Respiratory: Reports no additional respiratory complaints and Reports no additional respiratory complaints Gastrointestinal: Gastrointestinal: Reports as per HPI and Reports no additional gastrointestinal complaints Musculoskeletal: Musculoskeletal: Reports no additional musculoskeletal complaints Integumentary/Breasts: Skin/Breast: Reports system reviewed and no additional complaints, except as docu and Reports as per HPI Neurologic: Reports system reviewed and no additional complaints, except as documented, Reports as per HPI and Reports Normal hearing present Psychiatric: Psychiatric: Reports no additional psychiatric complaints and Reports as per HPI Endocrine: Endocrine: Reports no additional endocrine complaints Hematologic/Lymphatic: Hematologic/Lymphatic: Reports no additional hematologic/lymphatic complaints Allergic/Immunologic: Allergic/Immunologic: Reports no additional allergic/immunologic complaints [facility] Past Medical History Medical History (Updated 04/07/23 @ 15:51 by Shandra Kulkarni NP) Abdominal pain Abnormality of gait Acute back pain Acute nasopharyngitis Acute neck pain Allerg
[2023-04-07] MEDS: fentaNYL CITRATE INJ (*CRX) 100 MCG/2 ML VIAL 50 MCG IV PUSH ×2 (13:47→20:38)
[2023-04-07] MEDS: LEVALBUTEROL NEB 1.25 MG/3 ML INHALATION ×2 (13:48→20:14)
[2023-04-07 14:14] LABS: Alveolar/Arterial O2 Gradient 97.4 mmHg; Base Excess ABG -0.5 mEq/l (+/-2.0); Fractional Inspired Oxygen 28 %; HCO3 ABG 21.4 mEq/l (22.0-26.0); Oxygen Content ABG 14.8 %vol (16.0-22.0); Oxyhemoglobin 93.7 % THb (90.0-100.0); PCO2 ABG 26.7 mmHg (35.0-45.0); PO2 ABG 70.7 mmHg (80.0-100.0); PO2 FiO2 Ratio Arterial Blood 2.52 %; Total Hemoglobin 11.2 g/dL (12.0-18.0)
[2023-04-07 14:17] LABS: pH ABG 7.521 (7.350-7.450)
[2023-04-07 14:18] LABS: Device NASAL CANNULA; Site Drawn LEFT BRACHIAL
[2023-04-07] MEDS: methylPREDNISolone SOD SUCC 125 MG VIAL IV PUSH (15:29)
[2023-04-07] MEDS: MAGNESIUM SULF 2 GM/WATER 50ML 2 GM/50 ML BAG IVPB (17:32)
[2023-04-07] MEDS: oxyCODONE HCL (*CRX) 5 MG TAB IR PO (19:34)
[2023-04-07] MEDS: IPRATROPIUM BR 0.02% INH SOLN 0.5 MG/2.5 ML VIAL INHALATION (20:14)
[2023-04-07 20:50] LABS: Partial Thromboplastin Time 77.8 SECONDS (22.3-36.8)
[2023-04-07] MEDS: FAMOTIDINE 20 MG/2 ML VIAL IV PUSH (21:40)
[2023-04-07] MEDS: methylPREDNISolone SOD SUCC 125 MG VIAL 80 MG IV PUSH (22:58)
[2023-04-08] VITALS (22 sets, daily range): BP systolic 119–148; BP diastolic 40–64; PULSE 72–125; RESP 16–20; TEMP 36.2–36.6; O2SAT 94–100
--- NOTE | 2023-04-08 | ECHO_ITS ---
Patient Info Name: Neha Bliss Age: 82 years : 1940 Gender: Female Ht: 67 in Wt: 182 lbs BSA: 2.00 m2 HR: 80 bpm BP: 125 / 53 mmHg Heart Rhythm: Sinus Rhythm Technical Quality: Fair Exam Date: 04/08/2023 8:19 AM Exam Location: [facility] Patient Status: Inpatient Admit Date: 04/07/2023 Staff Ordering Physician: Shandra Kulkarni NP Branch Banker: Jes Villasenor RDCS Attending Provider: Martin Haro MD Referring Physician: Shad CORBETT; Exam Type: CA echo doppler color flow Study Info Indications - PE Complete two-dimensional, color flow and Doppler transthoracic echocardiogram is performed. Summary 1. Complete two-dimensional, color flow and Doppler transthoracic echocardiogram is performed. 2. Left ventricular chamber dimension is normal. 3. Left ventricular systolic function is normal, estimated at 65-70%. 4. There is mildly increased left ventricular wall thickness. 5. The left ventricular diastolic function is grade I diastolic dysfunction. 6. Right ventricular systolic function is normal. 7. Left atrial chamber dimension is moderately enlarged. 8. Right atrial chamber dimension is moderately enlarged. 9. There is mild mitral valve regurgitation. 10. There is mild tricuspid valve regurgitation. 11. There is trivial pericardial effusion. Left Ventricle Left ventricular chamber dimension is normal. Left ventricular systolic function is normal, estimated at 65-70%. There is mildly increased left ventricular wall thickness. The left ventricular diastolic function is grade I diastolic dysfunction. Right Ventricle Right ventricular chamber dimension is normal. Right ventricular systolic function is normal. Left Atria Left atrial chamber dimension is moderately enlarged. Right Atria Right atrial chamber dimension is moderately enlarged. Atrial Septum Intact interatrial septum visualized by color flow imaging. Aortic Valve The aortic valve is trileaflet. There is mild aortic valve sclerosis. There is no aortic valve stenosis. There is no aortic valve regurgitation. Pulmonic Valve The pulmonic valve is not well visualized. Mitral Valve The mitral valve has thickened leaflets. There is mild mitral valve regurgitation. Tricuspid Valve There is mild tricuspid valve regurgitation. Pericardium/Pleural There is trivial pericardial effusion. Inferior Vena Cava Dilated inferior vena cava with <50% collapse upon inspiration consistent with elevated right atrial pressure, 15 mmHg. Aorta The aortic root size at the sinus of Valsalva is normal. Left Ventricular Outflow Tract Name Value Normal LVOT 2D LVOT Diameter 2.0 cm LVOT Doppler LVOT Peak Gradient 6 mmHg LVOT Mean Gradient 3 mmHg LVOT VTI 23 cm LVOT VTI/AV VTI Ratio 0.8 LVOT Stroke Volume 70 ml LVOT CO 6.2 l/min LVOT CI 3.1 l/min/m2 Pulmonic Valve Name Value Normal
[2023-04-08] MEDS: oxyCODONE HCL (*CRX) 5 MG TAB IR PO ×3 (01:49→18:33)
[2023-04-08] MEDS: IPRATROPIUM BR 0.02% INH SOLN 0.5 MG/2.5 ML VIAL INHALATION ×3 (02:19→20:41)
[2023-04-08] MEDS: LEVALBUTEROL NEB 1.25 MG/3 ML INHALATION ×3 (02:19→20:41)
[2023-04-08 02:45] LABS: Basophils Percent Auto 0.2 % (0.2-1.2); Eosinophils Percent Auto 0.1 % (0-4.4); Hematocrit 32.4 % (37.0-47.0); Hemoglobin 10.7 g/dL (12.0-15.0); Immature Granulocyte Absolute 0.05 K/mm3 (0.00-0.031); Immature Granulocyte Percent A 0.5 % (0-0.5); Lymphocytes Absolute Auto 0.49 K/mm3 (0.9-3.2); Lymphocytes Percent Auto 4.5 % (18.3-44.2); Mean Corpuscular Hemoglobin 30.7 pg (26-34); Mean Corpuscular Volume 92.8 fl (80-100); Mean Platelet Volume 10.2 fl (7.4-10.4); Monocytes Absolute Auto 0.1 K/mm3 (0.1-0.6); Monocytes Percent Auto 1.3 % (2.6-8.5); Neutrophils Absolute Auto 10.1 K/mm3 (1.3-6.7); Neutrophils Percent Auto 93.4 % (45.5-73.1); Platelet Count Result 259 k/mm3 (150-375); Red Blood Count 3.49 M/mm3 (4.2-5.4); Red Cell Distribution Width 13.2 % (11.5-14.5); White Blood Count 10.8 K/mm3 (4.5-10.0)
[2023-04-08 02:57] LABS: Lactic Acid Reflex 0.8 mmol/L (0.7-2.0)
[2023-04-08 02:58] LABS: Partial Thromboplastin Time 99.6 SECONDS (22.3-36.8)
[2023-04-08 02:59] LABS: Alanine Aminotransferase 24 U/L (6-35); Albumin Level 3.9 g/dL (3.5-5.1); Alkaline Phosphatase 79 U/L (38-126); Anion Gap 6 mmol/L (8-16); Aspartate Amino Transferase 20 U/L (14-36); Bilirubin,Total 0.4 mg/dL (0.2-1.3); Blood Urea Nitrogen 9 mg/dL (7-17); Calcium 8.9 mg/dL (8.4-10.2); Carbon Dioxide 29 mmol/L (22-30); Chloride 98 mmol/L (98-107); Estimated CRCL calculation 81 ml/min; Estimated Glomerular Filt Rate > 60; Glucose 187 mg/dL (65-110); Magnesium 2.6 mg/dL (1.6-2.3); Potassium 3.4 mmol/L (3.4-5.0); Sodium 133 mmol/L (137-145)
--- NOTE | 2023-04-08 03:18 | PC.NURSE ---
spoke to Shandra Tracey earlier tonight regarding patient oxygen saturation dropping to 70's and quickly coming back up while she sleeps. No new orders received. Keep her on the 2L of oxygen. Hi fowlers positioning helps some. Head positioning helping some.
[2023-04-08 03:44] LABS: Thyroid Stimulating Hormone Reflex 0.808 uIU/mL (0.465-4.68)
--- NOTE | 2023-04-08 05:40 | ECG_ITS ---
Measurements Intervals [place] Rate: 75 P: 66 MI: 141 QRS: -10 QRSD: 105 T: -25 QT: 410 QTc: 458 Interpretive Statements SINUS RHYTHM INCOMPLETE RIGHT BUNDLE BRANCH BLOCK [90+ ms QRS DURATION, TERMINAL R IN V1/V2, 40+ ms S IN I/aVL/V4/V5/V6] MODERATE VOLTAGE CRITERIA FOR LVH, CONSIDER NORMAL VARIANT [MEETS CRITERIA IN ONE OF: R(aVL), S(V1), R(V5), R(V5/V6)+S(V1)] MODERATE T-WAVE ABNORMALITY, CONSIDER ANTEROLATERAL ISCHEMIA [-0.1+ mV T WAVE IN V3-V6] COMPARED TO ECG 04/07/2023 11:34:55 NO SIGNIFICANT CHANGES Electronically Signed On 04-08-2023 13:46:39 CDT by Mago Curtis M.D.
[2023-04-08] MEDS: methylPREDNISolone SOD SUCC 125 MG VIAL 80 MG IV PUSH (06:34)
[2023-04-08] MEDS: FAMOTIDINE 20 MG/2 ML VIAL IV PUSH ×2 (08:35→20:39)
[2023-04-08] MEDS: LEVOTHYROXINE SODIUM 100 MCG TABLET PO (08:36)
[2023-04-08] MEDS: CHOLECALCIFEROL 400 UNITS TABLET (VIT D) PO (08:36)
[2023-04-08] MEDS: MULTIVITAMINS THERAPEUTIC TAB (*BKC) 1 TABLET PO (08:36)
[2023-04-08] MEDS: METAXALONE 800 MG TABLET PO (08:37)
[2023-04-08] MEDS: polyethylene glycoL 3350 17 GM POWD.PACK PO (08:40)
[2023-04-08] MEDS: FLUTICASONE/UMECLIDIN/VILANTER 100-62.5-25 MCG ELLIPTA 1 PUFF INHALATION (09:43)
[2023-04-08] MEDS: HEPARIN SOD/D5W 100 UNITS/ML 25,000 UNITS/250 ML BAG 12 UNITS IV CONT (10:00)
[2023-04-08 11:10] LABS: Partial Thromboplastin Time 67.6 SECONDS (22.3-36.8)
[2023-04-08] MEDS: SENNA/DOCUSATE SODIUM TABLET 1 TAB PO (11:13)
--- NOTE | 2023-04-08 12:03 | PM.PNGS ---
Progress Note: A&P Assessment and Plan (1) Pulmonary emboli: Code(s): I26.99 - Other pulmonary embolism without acute cor pulmonale Status: Acute Assessment and Plan: Pulmonary embolus after recent hernia repair. Patient started on heparin drip. Aspirin as per hospitalist team. She can be transitioned to oral systemic anticoagulation at the discretion. (2) Pneumonia: Code(s): J18.9 - Pneumonia, unspecified organism Status: Acute Assessment and Plan: Treatment as per hospitalist team. Agree with antibiotics. (3) S/P ventral herniorrhaphy: Code(s): Z98.890 - Other specified postprocedural states; Z87.19 - Personal history of other diseases of the digestive system Status: Acute Assessment and Plan: Incisional hernia repair seems to be intact. No wound complications. Continue abdominal binder. We will likely remove thuy before she leaves the hospital. Subjective Subjective Date/Time Seen: 04/08/23 12:03 Interval history: Patient readmitted to the hospital from rehab due to complaints of shortness of breath. She was also having some upper abdominal pain. Within the last 2 weeks she underwent a open incisional hernia repair with retrorectus placement of mesh. She went to rehab I had been doing fairly well there until she came back to the hospital with her new complaints. Workup showed that she had evidence of bilateral pulmonary emboli. Started on a heparin drip. CT scan of the chest abdomen pelvis showed surgical changes the hernia repair but no seroma, hematoma, or recurrence of the hernia. Review of Systems Review of Systems: The remainder of the review of systems to include constitutional, HEENT, cardiovascular, respiratory, GI, , integumentary, musculoskeletal, endocrine, immunologic, hematologic, psychiatric, and neurologic are all negative except for which is mentioned above in the HPI. Exam Const: General: comfortable and no acute distress Resp: Effort & Inspection: normal respiratory effort Auscultation: clear to auscultation bilaterally Cardio: Rate: regular rate Rhythm: regular rhythm GI: Other: Abdomen is soft and nondistended. The midline incision is well intact without any redness or drainage. Thuy are in place. There is no evidence of wound infection. Neuro: Speech: normal speech Psych: Mental Status: mental status grossly normal Affect: normal affect Objective Data Vital Signs Vital Signs: Vital Signs - 24 hr 04/07/23 14:07 04/07/23 14:18 04/07/23 14:15 Temperature Pulse Rate 93 92 Respiratory Rate 27 H 20 Blood Pressure Pulse Oximetry 100 Oxygen Delivery Nasal Cannula Oxygen Flow Rate 2 Fraction of Inspired Oxygen 04/07/23 12:12 04/07/23 12:16 04/07/23 12:30 Temperature Pulse Rate 95 96 96 Respiratory Rate 20 24 H 32 H Blood Pressure Pulse Oximetry 95 96 98 Oxygen Delivery Oxygen Flow Rate Fraction of Inspired Oxygen 04/07/23 12:45 04/07/23 13:01 04/07/23 13:15 Temperature Pulse Rate 94 99 99 Respiratory Rate 24 H 28 H 27 H Blood Pressure Pulse Oximetry 93 93 Oxygen Delivery Oxygen Flow Rate Fraction of Inspired Oxygen 04/07/23 13:30 04/07/23 13:56 04/07/23 14:11 Temperature Pulse Rate 97 95 87 Respiratory Rate 33 H 22 H 14 Blood Pressure Pulse Oximetry 93 93 100 Oxygen Delivery Oxygen Flow Rate Fraction of Inspired Oxygen 04/07/23 14:15 04/07/23 14:23 04/07/23 14:30 Temperature Pulse Rate 85 95 94 Respiratory Rate 19 22 H 13 Blood Pressure 117/70 Pulse Oximetry 100 97 Oxygen Delivery Oxygen Flow Rate Fraction of Inspired Oxygen 04/07/23 14:31 04/07/23 14:49 04/07/23 15:00 Temperature Pulse Rate 97 98 97 Respiratory Rate 16 26 H Blood Pressure 120/58 L 117/70 Pulse Oximetry 100 Oxygen Delivery Oxygen Flow Rate Fraction of Inspired Oxygen 04/07/23 16:00
--- NOTE | 2023-04-08 13:13 | PM.IMPN ---
Progress Note: A&P Assessment and Plan (1) Pulmonary emboli: Code(s): I26.99 - Other pulmonary embolism without acute cor pulmonale Status: Acute Assessment and Plan: Continue with heparin drip. As per protocol for pulmonary emboli. Chest/Abdomen/Pelvis CTA 04/07/23 12:15 IMPRESSION: 1. Acute bilateral pulmonary emboli. 2. Cardiomegaly. 3. Changes of mesh ventral hernia repair without acute findings of the abdomen. Continue analgesics The patient is currently on oxygen at 2 L per nasal cannula wean off when appropriate Improved clinically will switch to oral anticoagulation Venous duplex was also positive for left gastrocnemius vein DVT. (2) GERD (gastroesophageal reflux disease): Code(s): K21.9 - Gastro-esophageal reflux disease without esophagitis Status: Acute Assessment and Plan: IV Pepcid (3) Hypothyroid: Code(s): E03.9 - Hypothyroidism, unspecified Status: Acute Assessment and Plan: Continue with Synthroid and check thyroid level. (4) Mixed hyperlipidemia: Code(s): E78.2 - Mixed hyperlipidemia Status: Acute Assessment and Plan: Continue with a heart healthy diet. Plan Left lower extremity DVT Recent hernia surgery general surgery following Discussed anticoagulation Wheezing: Was started on Solu-Medrol. She is not wheezing anymore. Will stop her steroid. Bronchodilators as ordered. Continue to monitor Subjective Date/time seen: 04/08/23 13:13 Interval history: Chart reviewed. Feeling better today. Chest pain has resolved. No shortness of breath. Has not gotten out of bed yet. Left leg was bothering her recently Review of Systems Review of Systems: All systems reviewed & are unremarkable except as noted in HPI and below Objective Data Vital Signs Vital Signs: Vital Signs - 24 hr 04/07/23 14:07 04/07/23 14:18 04/07/23 14:15 Temperature Pulse Rate 93 92 Respiratory Rate 27 H 20 Blood Pressure Pulse Oximetry 100 Oxygen Delivery Nasal Cannula Oxygen Flow Rate 2 Fraction of Inspired Oxygen 04/07/23 13:15 04/07/23 13:30 04/07/23 13:56 Temperature Pulse Rate 99 97 95 Respiratory Rate 27 H 33 H 22 H Blood Pressure Pulse Oximetry 93 93 93 Oxygen Delivery Oxygen Flow Rate Fraction of Inspired Oxygen 04/07/23 14:11 04/07/23 14:15 04/07/23 14:23 Temperature Pulse Rate 87 85 95 Respiratory Rate 14 19 22 H Blood Pressure 117/70 Pulse Oximetry 100 100 97 Oxygen Delivery Oxygen Flow Rate Fraction of Inspired Oxygen 04/07/23 14:30 04/07/23 14:31 04/07/23 14:49 Temperature Pulse Rate 94 97 98 Respiratory Rate 13 16 26 H Blood Pressure 120/58 L 117/70 Pulse Oximetry 100 Oxygen Delivery Oxygen Flow Rate Fraction of Inspired Oxygen 04/07/23 15:00 04/07/23 16:00 04/07/23 16:00 Temperature 98 F Pulse Rate 97 98 87 Respiratory Rate 32 H Blood Pressure 143/62 H Pulse Oximetry 100 Oxygen Delivery Oxygen Flow Rate Fraction of Inspired Oxygen 04/07/23 18:00 04/07/23 19:55 04/07/23 20:17 Temperature 97.4 F L Pulse Rate 85 69 84 Respiratory Rate 20 18 Blood Pressure 131/58 L Pulse Oximetry 94 Oxygen Delivery Oxygen Flow Rate Fraction of Inspired Oxygen 04/07/23 20:29 04/07/23 20:00 04/07/23 23:18 Temperature 97.9 F Pulse Rate 86 86 83 Respiratory Rate 18 18 20 Blood Pressure 131/55 L Pulse Oximetry 94 94 Oxygen Delivery Room Air Oxygen Flow Rate Fraction of Inspired Oxygen 04/07/23 20:00 04/07/23 22:00 04/08/23 00:00 Temperature Pulse Rate 78 85 83 Respiratory Rate 20 Blood Pressure Pulse Oximetry 94 Oxygen Delivery Room Air Oxygen Flow Rate Fraction of Inspired Oxygen 04/08/23 00:00 04/08/23 02:21 04/08/23 02:16 Temperature Pulse Rate 76 72 72 Respiratory Rate 16 16 Blood Pressure Pulse Oximetry 98 Oxygen Delivery Nasal Cannula
--- NOTE | 2023-04-08 15:32 | PCCCNOTE ---
On 04/08/23, the student, [Antonina Arreguin ], provided care and completed [facility] documentation on this patient. I have reviewed the student's documentation and agree with the findings.
[2023-04-08 17:59] LABS: Partial Thromboplastin Time 58.3 SECONDS (22.3-36.8)
[2023-04-08] MEDS: HEPARIN SODIUM 5,000 UNITS/ML VIAL 3000 UNITS IV PUSH (18:33)
[2023-04-08] MEDS: APIXABAN 5 MG TABLET 10 MG PO (20:39)
[2023-04-09] VITALS (17 sets, daily range): BP systolic 115–124; BP diastolic 48–58; PULSE 74–97; RESP 16–20; TEMP 35.9–36.4; O2SAT 92–100
[2023-04-09] MEDS: LEVALBUTEROL NEB 1.25 MG/3 ML INHALATION ×3 (02:25→20:50)
[2023-04-09] MEDS: IPRATROPIUM BR 0.02% INH SOLN 0.5 MG/2.5 ML VIAL INHALATION ×3 (02:25→20:50)
[2023-04-09] MEDS: LEVOTHYROXINE SODIUM 100 MCG TABLET PO (06:24)
[2023-04-09] MEDS: CHOLECALCIFEROL 400 UNITS TABLET (VIT D) PO (08:48)
[2023-04-09] MEDS: MULTIVITAMINS THERAPEUTIC TAB (*BKC) 1 TABLET PO (08:48)
[2023-04-09] MEDS: APIXABAN 5 MG TABLET 10 MG PO ×2 (08:48→21:12)
[2023-04-09] MEDS: SENNA/DOCUSATE SODIUM TABLET 1 TAB PO (08:49)
[2023-04-09] MEDS: FAMOTIDINE 20 MG/2 ML VIAL IV PUSH ×2 (08:49→21:12)
[2023-04-09] MEDS: polyethylene glycoL 3350 17 GM POWD.PACK PO (09:00)
[2023-04-09] MEDS: FLUTICASONE/UMECLIDIN/VILANTER 100-62.5-25 MCG ELLIPTA 1 PUFF INHALATION (09:05)
--- NOTE | 2023-04-09 14:15 | PC.NURSE ---
This patient, Neha Bliss, was received from [id number] on 04/09/23 at 1415. Patient/family oriented to unit policies and routines. Report received from Prisca YEBOAH.
--- NOTE | 2023-04-09 14:26 | PC.NURSE ---
This patient, eNha Bliss, was transferred to [facility] on 04/09/23 at 1410. Personal belongings sent with patient. Report given to Divine. Appropriate documentation sent with patient.
--- NOTE | 2023-04-09 14:35 | PM.IMPN ---
Progress Note: A&P Assessment and Plan (1) Pulmonary emboli: Code(s): I26.99 - Other pulmonary embolism without acute cor pulmonale Status: Acute Assessment and Plan: Continue with heparin drip. As per protocol for pulmonary emboli. Chest/Abdomen/Pelvis CTA 04/07/23 12:15 IMPRESSION: 1. Acute bilateral pulmonary emboli. 2. Cardiomegaly. 3. Changes of mesh ventral hernia repair without acute findings of the abdomen. Continue analgesics The patient is currently on oxygen at 2 L per nasal cannula wean off when appropriate Improved clinically will switch to oral anticoagulation [facility] Venous duplex was also positive for left gastrocnemius vein DVT. (2) GERD (gastroesophageal reflux disease): Code(s): K21.9 - Gastro-esophageal reflux disease without esophagitis Status: Acute Assessment and Plan: IV Pepcid (3) Hypothyroid: Code(s): E03.9 - Hypothyroidism, unspecified Status: Acute Assessment and Plan: Continue with Synthroid and check thyroid level. (4) Mixed hyperlipidemia: Code(s): E78.2 - Mixed hyperlipidemia Status: Acute Assessment and Plan: Continue with a heart healthy diet. Plan Left lower extremity DVT Recent hernia surgery general surgery following Discussed anticoagulation Wheezing: Was started on Solu-Medrol. She is not wheezing anymore. starter steroid Bronchodilators as ordered. Continue to monitor Subjective Date/time seen: 04/09/23 14:35 Interval history: complains of headache. Was also feeling little nauseated today. Breathing is better. Off oxygen now. Ambulating to the bathroom. Denies any chest pain. Leg still bothering her. Review of Systems Review of Systems: All systems reviewed & are unremarkable except as noted in HPI and below Exam Narrative: GENERAL: Well-appearing, well-nourished, and in no acute distress. HEAD: Normocephalic, atraumatic. EYES: PERRLA and EOMI. ENT: Nares clear, no rhinorrhea or epistaxis.? Mucous membranes moist. NECK: Supple. CHEST: Clear to auscultation.? No respiratory distress. HEART: Regular rate and rhythm.? No murmur heard.? Normal peripheral pulses. ABDOMEN: Soft, Nontender, nondistended, normal active bowel sounds. EXTREMITIES: Normal range of motion.? No edema. SKIN: Warm, dry, no rash. NEURO: No focal deficits.? Alert and oriented x3. PSYCH: Normal mood and affect. Objective Data Vital Signs Vital Signs: Vital Signs - 24 hr 04/08/23 15:01 04/08/23 16:05 04/08/23 16:00 Temperature Pulse Rate 86 Pulse Rate [At Rest After Therapy Session] 102 H Pulse Rate [With Activity During Therapy Session] 125 H Respiratory Rate Blood Pressure Pulse Oximetry Pulse Oximetry [At Rest After Therapy Session] 99 Pulse Oximetry [With Activity During Therapy Session] 95 Oxygen Delivery Room Air Room Air Oxygen Flow Rate 04/08/23 16:00 04/08/23 20:11 04/08/23 20:41 Temperature 97.1 F L 97.6 F Pulse Rate 103 H 89 94 Pulse Rate [At Rest After Therapy Session] Pulse Rate [With Activity During Therapy Session] Respiratory Rate 16 20 18 Blood Pressure 148/49 H 123/51 L Pulse Oximetry 100 100 Pulse Oximetry [At Rest After Therapy Session] Pulse Oximetry [With Activity During Therapy Session] Oxygen Delivery Oxygen Flow Rate 04/08/23 20:54 04/08/23 23:43 04/09/23 02:25 Temperature 97.6 F Pulse Rate 91 99 88 Pulse Rate [At Rest After Therapy Session] Pulse Rate [With Activity During Therapy Session] Respiratory Rate 18 20 18 Blood Pressure 121/64 Pulse Oximetry 98 Pulse Oximetry [At Rest After Therapy Session] Pulse Oximetry [With Activity During Therapy Session] Oxygen Delivery Oxygen Flow Rate 04/09/23 02:35 04/08/23 20:00 04/08/23 20:00 Temperature Pulse Rate 79 86 Pulse Rate [At Rest After Therapy Session] Pulse Rate [With Activity During Therapy Session] Respiratory Rate 16
[2023-04-09] MEDS: ACETAMINOPHEN 325 MG TABLET 650 MG PO (16:03)
[2023-04-09] MEDS: MAG HYDROX/AL HYDROX/SIMETH 30 ML UDC PO (16:04)
[2023-04-09] MEDS: ONDANSETRON HCL ODT 4 MG TABLET PO (16:04)
[2023-04-10] VITALS (16 sets, daily range): BP systolic 103–123; BP diastolic 41–53; PULSE 77–87; RESP 15–18; TEMP 35.5–36.2; O2SAT 97
[2023-04-10] MEDS: IPRATROPIUM BR 0.02% INH SOLN 0.5 MG/2.5 ML VIAL INHALATION ×4 (02:56→20:55)
[2023-04-10] MEDS: LEVALBUTEROL NEB 1.25 MG/3 ML INHALATION ×4 (02:57→20:55)
[2023-04-10] MEDS: LEVOTHYROXINE SODIUM 100 MCG TABLET PO (05:21)
[2023-04-10 06:08] LABS: Basophils Absolute Auto 0.1 K/mm3 (0.0-0.1); Eosinophils Absolute Auto 0.3 K/mm3 (0-0.3); Eosinophils Percent Auto 4.8 % (0-4.4); Hematocrit 31.6 % (37.0-47.0); Hemoglobin 10.1 g/dL (12.0-15.0); Immature Granulocyte Absolute 0.03 K/mm3 (0.00-0.031); Immature Granulocyte Percent A 0.4 % (0-0.5); Lymphocytes Absolute Auto 1.52 K/mm3 (0.9-3.2); Lymphocytes Percent Auto 22.3 % (18.3-44.2); Mean Corpuscular Hemoglobin 30.1 pg (26-34); Mean Platelet Volume 10.1 fl (7.4-10.4); Monocytes Absolute Auto 0.6 K/mm3 (0.1-0.6); Monocytes Percent Auto 8.1 % (2.6-8.5); Neutrophils Absolute Auto 4.3 K/mm3 (1.3-6.7); Neutrophils Percent Auto 63.4 % (45.5-73.1); Platelet Count Result 323 k/mm3 (150-375); Red Blood Count 3.36 M/mm3 (4.2-5.4); Red Cell Distribution Width 13.3 % (11.5-14.5); White Blood Count 6.8 K/mm3 (4.5-10.0)
[2023-04-10 06:25] LABS: Alanine Aminotransferase 22 U/L (6-35); Albumin Level 3.5 g/dL (3.5-5.1); Alkaline Phosphatase 63 U/L (38-126); Anion Gap 4 mmol/L (8-16); Aspartate Amino Transferase 24 U/L (14-36); Bilirubin,Total 0.4 mg/dL (0.2-1.3); Blood Urea Nitrogen 11 mg/dL (7-17); Calcium 9.2 mg/dL (8.4-10.2); Carbon Dioxide 35 mmol/L (22-30); Chloride 99 mmol/L (98-107); Estimated CRCL calculation 60 ml/min; Estimated Glomerular Filt Rate > 60; Glucose 98 mg/dL (65-110); Magnesium 2.4 mg/dL (1.6-2.3); Sodium 138 mmol/L (137-145)
[2023-04-10] MEDS: FLUTICASONE/UMECLIDIN/VILANTER 100-62.5-25 MCG ELLIPTA 1 PUFF INHALATION (08:04)
[2023-04-10] MEDS: APIXABAN 5 MG TABLET 10 MG PO ×2 (08:38→22:11)
[2023-04-10] MEDS: CHOLECALCIFEROL 400 UNITS TABLET (VIT D) PO (08:38)
[2023-04-10] MEDS: FAMOTIDINE 20 MG/2 ML VIAL IV PUSH (08:38)
[2023-04-10] MEDS: polyethylene glycoL 3350 17 GM POWD.PACK PO (08:38)
[2023-04-10] MEDS: SENNA/DOCUSATE SODIUM TABLET 1 TAB PO (08:38)
[2023-04-10] MEDS: MULTIVITAMINS THERAPEUTIC TAB (*BKC) 1 TABLET PO (08:38)
[2023-04-10] MEDS: oxyCODONE HCL (*CRX) 5 MG TAB IR PO (09:08)
[2023-04-10] MEDS: ONDANSETRON HCL ODT 4 MG TABLET PO (09:15)
--- NOTE | 2023-04-10 12:06 | PM.IMPN ---
Progress Note: A&P Assessment and Plan (1) Pulmonary emboli: Code(s): I26.99 - Other pulmonary embolism without acute cor pulmonale Status: Acute Assessment and Plan: Continue with heparin drip. As per protocol for pulmonary emboli. Chest/Abdomen/Pelvis CTA 04/07/23 12:15 IMPRESSION: 1. Acute bilateral pulmonary emboli. 2. Cardiomegaly. 3. Changes of mesh ventral hernia repair without acute findings of the abdomen. Continue analgesics The patient is currently on oxygen at 2 L per nasal cannula wean off when appropriate Improved clinically switched to oral antico[facility] Venous duplex was also positive for left gastrocnemius vein DVT. (2) GERD (gastroesophageal reflux disease): Code(s): K21.9 - Gastro-esophageal reflux disease without esophagitis Status: Acute Assessment and Plan: IV Pepcid Ongoing symptoms Will add PPI (3) Hypothyroid: Code(s): E03.9 - Hypothyroidism, unspecified Status: Acute Assessment and Plan: Continue with Synthroid and check thyroid level. (4) Mixed hyperlipidemia: Code(s): E78.2 - Mixed hyperlipidemia Status: Acute Assessment and Plan: Continue with a heart healthy diet. Plan Left lower extremity DVT Recent hernia surgery general surgery following Discussed anticoagulation Wheezing: Was started on Solu-Medrol. She is not wheezing anymore. starter steroid Bronchodilators as ordered. Continue to monitor Disposition: Back to [facility] Subjective Date/time seen: 04/10/23 12:06 Interval history: Feeling well today. Reflux disease is chronic problem. Ambulating to the bathroom. Denies any chest pain or shortness of breath. Review of Systems Review of Systems: All systems reviewed & are unremarkable except as noted in HPI and below Exam Narrative: GENERAL: Well-appearing, well-nourished, and in no acute distress. HEAD: Normocephalic, atraumatic. EYES: PERRLA and EOMI. ENT: Nares clear, no rhinorrhea or epistaxis.? Mucous membranes moist. NECK: Supple. CHEST: Clear to auscultation.? No respiratory distress. HEART: Regular rate and rhythm.? No murmur heard.? Normal peripheral pulses. ABDOMEN: Soft, Nontender, nondistended, normal active bowel sounds. EXTREMITIES: Normal range of motion.? No edema. SKIN: Warm, dry, no rash. NEURO: No focal deficits.? Alert and oriented x3. PSYCH: Normal mood and affect. Objective Data Vital Signs Vital Signs: Vital Signs - 24 hr 04/09/23 16:00 04/09/23 14:15 04/09/23 16:00 Temperature 97.6 F Pulse Rate 90 74 Respiratory Rate 20 Blood Pressure 116/53 L Pulse Oximetry 100 Oxygen Delivery Room Air Fraction of Inspired Oxygen 04/09/23 20:51 04/09/23 20:55 04/09/23 21:13 Temperature Pulse Rate 77 82 Respiratory Rate 18 18 Blood Pressure Pulse Oximetry 97 Oxygen Delivery Room Air Fraction of Inspired Oxygen 04/09/23 20:00 04/09/23 22:00 04/10/23 02:57 Temperature 96.7 F L Pulse Rate 77 85 84 Respiratory Rate 18 20 18 Blood Pressure 115/58 L Pulse Oximetry 97 92 Oxygen Delivery Room Air Fraction of Inspired Oxygen 04/10/23 03:09 04/09/23 20:00 04/10/23 00:00 Temperature Pulse Rate 86 81 80 Respiratory Rate 18 Blood Pressure Pulse Oximetry Oxygen Delivery Fraction of Inspired Oxygen 04/10/23 04:00 04/10/23 06:00 04/10/23 07:31 Temperature 95.9 F L Pulse Rate 85 78 84 Respiratory Rate 16 18 Blood Pressure 103/41 L Pulse Oximetry 97 Oxygen Delivery Fraction of Inspired Oxygen 04/10/23 07:32 04/10/23 08:00 04/10/23 08:00 Temperature Pulse Rate 84 Respiratory Rate Blood Pressure Pulse Oximetry 97 Oxygen Delivery Room Air Room Air Fraction of Inspired Oxygen 04/10/23 07:36 Temperature Pulse Rate 84 Respiratory Rate 18 Blood Pressure Pulse Oximetry Oxygen Delivery Fraction of Inspired Oxygen In
--- NOTE | 2023-04-10 13:09 | PM.PNGS ---
Progress Note: A&P Assessment and Plan (1) Nausea: Code(s): R11.0 - Nausea Status: Acute Assessment and Plan: Patient having nausea but also having bowel movements. Complains of belching with nausea. Will get obstructive series (2) S/P ventral herniorrhaphy: Code(s): Z98.890 - Other specified postprocedural states; Z87.19 - Personal history of other diseases of the digestive system Status: Acute Assessment and Plan: Repair intact, wound healing well. Will have thuy removed and Steri-Strips placed. (3) Pulmonary emboli: Qualifiers: Pulmonary embolism type: multiple subsegmental (without acute cor pulmonale) Qualified Code(s): I26.94 - Multiple subsegmental pulmonary emboli without acute cor pulmonale Code(s): I26.99 - Other pulmonary embolism without acute cor pulmonale Status: Acute Assessment and Plan: On Eliquis anticoagulation Subjective Subjective Date/Time Seen: 04/10/23 13:09 Patient reports: feels better, pain is less, tolerating a regular diet, bowel movement, nausea (Belching and nausea) and afebrile Interval history: Right flank pain gone, no pleuritic pain. No complaints of pain at her hernia repair incision Exam Const: General: comfortable and no acute distress Orientation/consciousness: patient oriented x3 GI: Inspection: non-distended and incision (Thuy in place, dry and healing well) GI Palp: Yes Soft to palpation, No Tenderness to palpation present (GI), No Guarding due to palpation present (GI), No Hernia present, No Palpable mass present and No Rebound tenderness present Neuro: General: patient oriented x3 and no focal motor deficits Extrem: General: no calf tenderness and no edema Psych: Affect: normal affect Insight: Good insight present (Psych) Judgement: Good judgement present (Psych) Objective Data Vital Signs Vital Signs: Vital Signs - 24 hr 04/09/23 16:00 04/09/23 14:15 04/09/23 16:00 Temperature 36.4 C Pulse Rate 90 74 Respiratory Rate 20 Blood Pressure 116/53 L Pulse Oximetry 100 Oxygen Delivery Room Air Fraction of Inspired Oxygen 04/09/23 20:51 04/09/23 20:55 04/09/23 21:13 Temperature Pulse Rate 77 82 Respiratory Rate 18 18 Blood Pressure Pulse Oximetry 97 Oxygen Delivery Room Air Fraction of Inspired Oxygen 04/09/23 20:00 04/09/23 22:00 04/10/23 02:57 Temperature 35.9 C L Pulse Rate 77 85 84 Respiratory Rate 18 20 18 Blood Pressure 115/58 L Pulse Oximetry 97 92 Oxygen Delivery Room Air Fraction of Inspired Oxygen 04/10/23 03:09 04/09/23 20:00 04/10/23 00:00 Temperature Pulse Rate 86 81 80 Respiratory Rate 18 Blood Pressure Pulse Oximetry Oxygen Delivery Fraction of Inspired Oxygen 04/10/23 04:00 04/10/23 06:00 04/10/23 07:31 Temperature 35.5 C L Pulse Rate 85 78 84 Respiratory Rate 16 18 Blood Pressure 103/41 L Pulse Oximetry 97 Oxygen Delivery Fraction of Inspired Oxygen 04/10/23 07:32 04/10/23 08:00 04/10/23 08:00 Temperature Pulse Rate 84 Respiratory Rate Blood Pressure Pulse Oximetry 97 Oxygen Delivery Room Air Room Air Fraction of Inspired Oxygen 04/10/23 07:36 Temperature Pulse Rate 84 Respiratory Rate 18 Blood Pressure Pulse Oximetry Oxygen Delivery Fraction of Inspired Oxygen Intake/Output Intake/Output: Intake & Output 04/07/23 04/08/23 04/09/23 04/10/23 23:59 23:59 23:59 23:59 Intake Total 240 1610 1390 716 Output Total 1000 3100 1000 Balance -760 -1490 390 716 Meds/Results Medications: Active Medications Generic Name Dose Route Start Last Admin Trade Name Freq PRN Reason Stop Dose Admin Acetaminophen 650 mg 04/09/23 14:34 Acetaminophen 325 Mg Tablet PO Q6H PRN Mild Pain (1-3) or Fever Apixaban 10 mg 04/08/23 21:00 04/10/23 08:38 Apixaban 5 Mg Tablet PO 04/15/23 09:01 10 mg Q12HR CONNER
[2023-04-10] MEDS: PANTOPRAZOLE 40 MG TABLET PO (17:43)
[2023-04-11] VITALS (12 sets, daily range): BP systolic 112–123; BP diastolic 45–57; PULSE 77–95; RESP 14–18; TEMP 36.1–37.1; O2SAT 96–98
[2023-04-11] MEDS: LEVALBUTEROL NEB 1.25 MG/3 ML INHALATION ×3 (02:27→14:34)
[2023-04-11] MEDS: IPRATROPIUM BR 0.02% INH SOLN 0.5 MG/2.5 ML VIAL INHALATION ×3 (02:27→14:34)
[2023-04-11] MEDS: LEVOTHYROXINE SODIUM 100 MCG TABLET PO (06:31)
[2023-04-11 06:41] LABS: Basophils Absolute Auto 0.1 K/mm3 (0.0-0.1); Basophils Percent Auto 1.1 % (0.2-1.2); Eosinophils Absolute Auto 0.5 K/mm3 (0-0.3); Hematocrit 30.4 % (37.0-47.0); Hemoglobin 9.5 g/dL (12.0-15.0); Immature Granulocyte Absolute 0.03 K/mm3 (0.00-0.031); Immature Granulocyte Percent A 0.5 % (0-0.5); Lymphocytes Absolute Auto 1.38 K/mm3 (0.9-3.2); Lymphocytes Percent Auto 21.4 % (18.3-44.2); Mean Corpuscular HGB Conc 31.3 g/dl (32-36); Mean Corpuscular Hemoglobin 29.9 pg (26-34); Mean Corpuscular Volume 95.6 fl (80-100); Mean Platelet Volume 10.3 fl (7.4-10.4); Monocytes Absolute Auto 0.5 K/mm3 (0.1-0.6); Monocytes Percent Auto 8.4 % (2.6-8.5); Neutrophils Absolute Auto 3.9 K/mm3 (1.3-6.7); Neutrophils Percent Auto 60.6 % (45.5-73.1); Platelet Count Result 312 k/mm3 (150-375); Red Blood Count 3.18 M/mm3 (4.2-5.4); Red Cell Distribution Width 13.3 % (11.5-14.5); White Blood Count 6.5 K/mm3 (4.5-10.0)
[2023-04-11 06:58] LABS: Alanine Aminotransferase 18 U/L (6-35); Albumin Level 3.3 g/dL (3.5-5.1); Alkaline Phosphatase 62 U/L (38-126); Anion Gap 1 mmol/L (8-16); Aspartate Amino Transferase 17 U/L (14-36); Bilirubin,Total 0.3 mg/dL (0.2-1.3); Blood Urea Nitrogen 8 mg/dL (7-17); Calcium 8.8 mg/dL (8.4-10.2); Carbon Dioxide 35 mmol/L (22-30); Chloride 100 mmol/L (98-107); Estimated CRCL calculation 69 ml/min; Estimated Glomerular Filt Rate > 60; Glucose 99 mg/dL (65-110); Magnesium 2.5 mg/dL (1.6-2.3); Potassium 4.2 mmol/L (3.4-5.0); Sodium 136 mmol/L (137-145)
[2023-04-11] MEDS: FLUTICASONE/UMECLIDIN/VILANTER 100-62.5-25 MCG ELLIPTA 1 PUFF INHALATION (09:03)
[2023-04-11] MEDS: CHOLECALCIFEROL 400 UNITS TABLET (VIT D) PO (09:11)
[2023-04-11] MEDS: polyethylene glycoL 3350 17 GM POWD.PACK PO (09:11)
[2023-04-11] MEDS: MULTIVITAMINS THERAPEUTIC TAB (*BKC) 1 TABLET PO (09:12)
[2023-04-11] MEDS: PANTOPRAZOLE 40 MG TABLET PO (09:12)
[2023-04-11] MEDS: SENNA/DOCUSATE SODIUM TABLET 1 TAB PO (09:12)
[2023-04-11] MEDS: APIXABAN 5 MG TABLET 10 MG PO (09:12)
--- NOTE | 2023-04-11 14:14 | PM.DS ---
DS: Admitting Diagnosis Discharge Date 04/11/2023 Admitting Diagnosis Chest pain shortness of breath DS: Discharge Diagnosis Discharge Diagnosis (1) Pulmonary emboli: Qualifiers: Pulmonary embolism type: multiple subsegmental (without acute cor pulmonale) Qualified Code(s): I26.94 - Multiple subsegmental pulmonary emboli without acute cor pulmonale Code(s): I26.99 - Other pulmonary embolism without acute cor pulmonale Status: Acute (2) GERD (gastroesophageal reflux disease): Code(s): K21.9 - Gastro-esophageal reflux disease without esophagitis Status: Acute (3) Hypothyroid: Code(s): E03.9 - Hypothyroidism, unspecified Status: Acute (4) Mixed hyperlipidemia: Code(s): E78.2 - Mixed hyperlipidemia Status: Acute DS: Summary Hospital Course Hospital Course: # pulmonary emboli: Continue with heparin drip.? As per protocol for pulmonary emboli. Chest/Abdomen/Pelvis CTA? 04/07/23 12:15 IMPRESSION: 1. Acute bilateral pulmonary emboli. 2. Cardiomegaly. 3. Changes of mesh ventral hernia repair without acute findings of the abdomen. Continue analgesics The patient is currently on oxygen at 2 L per nasal cannula wean off when appropriate Improved clinically switched to oral anticoagulation Eliquis Venous duplex was also positive for left gastrocnemius vein DVT. Off oxygen by the time of discharge. Continue on Eliquis as ordered # GERD (gastroesophageal reflux disease): IV Pepcid Ongoing symptoms Continue on PPI # hypothyroidism: Continue with Synthroid # hyperlipidemia: Continue with a heart healthy diet. # left lower extremity DVT # recent hernia surgery general surgery following Discussed anticoagulation # wheezing:? Was started on Solu-Medrol.? She is not wheezing anymore.? starter steroid? Bronchodilators as ordered.? Continue to monitor # disposition:? Came from [facility]. PT OT evaluated and good for home health which is been arranged with the help of care coordination. Time Spent with Patient Time attestation: Total time spent providing and/or coordinating discharge services: 35 minutes Exam Narrative: GENERAL: Well-appearing, well-nourished, and in no acute distress. HEAD: Normocephalic, atraumatic. EYES: PERRLA and EOMI. ENT: Nares clear, no rhinorrhea or epistaxis.? Mucous membranes moist. NECK: Supple. CHEST: Clear to auscultation.? No respiratory distress. HEART: Regular rate and rhythm.? No murmur heard.? Normal peripheral pulses. ABDOMEN: Soft, Nontender, nondistended, normal active bowel sounds. EXTREMITIES: Normal range of motion.? No edema. SKIN: Warm, dry, no rash. NEURO: No focal deficits.? Alert and oriented x3. PSYCH: Normal mood and affect. DS: Data Data Completed and Pending Completed studies during hospitalization: Exam Type: ? ? CA echo doppler color flow Study Info Indications ?? ? - PE Complete two-dimensional, color flow and Doppler transthoracic echocardiogram is performed. Account #: ? ? [id number] Summary ? 1. Complete two-dimensional, color flow and Doppler transthoracic echocardiogram is performed. ? 2. Left ventricular chamber dimension is normal. ? 3. Left ventricular systolic function is normal, estimated at 65-70%. ? 4. There is mildly increased left ventricular wall thickness. ? 5. The left ventricular diastolic function is grade I diastolic dysfunction. ? 6. Right ventricular systolic function is normal. ? 7. Left atrial chamber dimension is moderately enlarged. ? 8. Right atrial chamber dimension is moderately enlarged. ? 9. There is mild mitral valve regurgitation. ? 10. There is mild tricuspid valve regurgitation. ? 11. There is trivial pericardial effusion. Left Ventricle ? Left ventricular chamber dimension is normal. ? Left ventricular systolic function is normal, estimated at 65-70%. ? There is mildly increased left ventricular wall thickness. ? The left ventricular cristine
--- NOTE | 2023-04-11 14:41 | PC.NURSE ---
Pt up in chair this shift. Pt is A&O4 female who has participated and contributed in plan of care. Pt daughter at bedside with pt. Pt discharging home with home health. Care coordination set up for HH evaluation 04/12/23. Pt reports no pain and expresses no needs at this time. Will continue to monitor pt until discharge. Assessment charted by Mary MASSEY, reviewed and verified by Olga Lidia YEBOAH.
== END 2023-04-11 16:20 | disposition home health service (06) | DRG 176 ==
LOC: ANHED 14:42 → ANHIMU 14:55 → ANH3MEDSUR 04-10 09:19 → ANHIMU 04-12 13:57
PROVIDERS: Internal Medicine; Nurse Practitioner; Admitting Provider Chiropractor; Emergency Provider Emergency Medicine; PCP Family Medicine; Visit Provider Internal Medicine
DX: I26.94 Multiple subsegmental thrombotic pulmonary emboli without acute cor pulmonale (principal); I82.462 Acute embolism and thrombosis of left calf muscular vein; K21.9 Gastro-esophageal reflux disease without esophagitis; E03.9 Hypothyroidism, unspecified; E78.2 Mixed hyperlipidemia; Z88.5 Allergy status to narcotic agent; Z96.643 Presence of artificial hip joint, bilateral; Z96.651 Presence of right artificial knee joint; Z88.3 Allergy status to other anti-infective agents; Z82.49 Family history of ischemic heart disease and other diseases of the circulatory system; Z82.3 Family history of stroke; Z79.51 Long term (current) use of inhaled steroids; Z79.899 Other long term (current) drug therapy
CPT/HCPCS: 36415; 36600; 71275; 74019; 74177; 80053; 82805; 83605; 83735; 84443; 85025; 85610; 85730; 93005; 93306; 93970; 94640; 96365; 96366; 96375; 96376; 97110; 97116; 97161; 97165; 97530; 97535; 99285; A9270; G0378; J1644; J2930; J3010; J3475; Q9967

== ENCOUNTER 2023-04-13 15:55 | Outpatient (CLI) | payer MEDICARE, SELFPAY ==
[2023-04-13 16:45] LABS: Basophils Absolute Auto 0.1 K/mm3 (0.0-0.1); Eosinophils Absolute Auto 0.5 K/mm3 (0-0.3); Eosinophils Percent Auto 7.6 % (0-4.4); Hematocrit 35.1 % (37.0-47.0); Hemoglobin 11.1 g/dL (12.0-15.0); Immature Granulocyte Absolute 0.04 K/mm3 (0.00-0.031); Immature Granulocyte Percent A 0.6 % (0-0.5); Lymphocytes Absolute Auto 1.34 K/mm3 (0.9-3.2); Lymphocytes Percent Auto 19.7 % (18.3-44.2); Mean Corpuscular HGB Conc 31.6 g/dl (32-36); Mean Corpuscular Hemoglobin 29.8 pg (26-34); Mean Corpuscular Volume 94.4 fl (80-100); Mean Platelet Volume 10.2 fl (7.4-10.4); Monocytes Absolute Auto 0.4 K/mm3 (0.1-0.6); Monocytes Percent Auto 5.7 % (2.6-8.5); Neutrophils Absolute Auto 4.4 K/mm3 (1.3-6.7); Neutrophils Percent Auto 65.4 % (45.5-73.1); Platelet Count Result 422 k/mm3 (150-375); Red Blood Count 3.72 M/mm3 (4.2-5.4); Red Cell Distribution Width 13.4 % (11.5-14.5); White Blood Count 6.8 K/mm3 (4.5-10.0)
[2023-04-13 17:01] LABS: Alanine Aminotransferase 19 U/L (6-35); Albumin Level 4.1 g/dL (3.5-5.1); Alkaline Phosphatase 68 U/L (38-126); Anion Gap 6 mmol/L (8-16); Aspartate Amino Transferase 23 U/L (14-36); Bilirubin,Total 0.4 mg/dL (0.2-1.3); Blood Urea Nitrogen 10 mg/dL (7-17); Calcium 9.3 mg/dL (8.4-10.2); Carbon Dioxide 28 mmol/L (22-30); Chloride 101 mmol/L (98-107); Estimated Glomerular Filt Rate > 60; Glucose 97 mg/dL (65-110); Magnesium 2.4 mg/dL (1.6-2.3); Potassium 4.1 mmol/L (3.4-5.0); Sodium 135 mmol/L (137-145)
== END 2023-04-13 15:56 | disposition home or self-care (01) ==
PROVIDERS: PCP Family Medicine; Visit Provider Physician Assistant
DX: I26.99 Other pulmonary embolism without acute cor pulmonale (principal); R53.83 Other fatigue; Z96.651 Presence of right artificial knee joint
CPT/HCPCS: 36415; 80053; 83735; 85025

== ENCOUNTER 2023-04-15 17:22 | Outpatient (CLI) | payer MEDICARE, SELFPAY ==
[2023-04-15 19:15] LABS: Iron 47 ug/dL (37-170)
[2023-04-15 19:25] LABS: Percent Iron Saturation 14 % (20-50)
[2023-04-20 15:37] LABS: Vitamin D 1,25 (OH)2 Total 34 pg/mL (18-72); Vitamin D2 1,25 (OH)2 <8 pg/mL; Vitamin D3 1,25 (OH)2 34 pg/mL
== END 2023-04-15 17:23 | disposition home or self-care (01) ==
PROVIDERS: PCP Family Medicine; Visit Provider Physician Assistant
DX: D64.9 Anemia, unspecified (principal); E55.9 Vitamin D deficiency, unspecified
CPT/HCPCS: 36415; 82607; 82652; 82728; 83540; 83550

== ENCOUNTER 2023-04-22 11:16 | Emergency (ER) | payer MEDICARE, SELFPAY ==
--- NOTE | ~2023-04-22 | CT_ITS ---
EXAMINATION: CT cervical spine wo con DATE: 04/22/2023 14:07 INDICATION: Neck pain. History of surgery. TECHNIQUE: Computed tomography (CT) of the cervical spine was performed without intravenous contrast. The dose-length product was 185 mGy-cm. Automated exposure control and iterative reconstruction technique were employed. COMPARISON: None FINDINGS: There is complete loss of disc height at C5-6 with retrolisthesis at this level. There is d egenerative anterolisthesis at C3-4 and C4-5. There is fusion at C6-7. There is degenerative anteroli sthesis at C7-T1 and T1-2. Craniovertebral junction within normal limits. Odontoid process is normal. No paraspinal soft tissue abnormality. There is a 12 mm low-density lesion right thyroid lobe. Lung apices are unremarkable. There is moderate uncinate hypertrophy, most advanced at C5-6. There is mild multilevel facet hypertrophy. Odontoid process is normal. Lateral masses normally aligned. No acute fracture or traumatic malalignment. No evidence for perched facet. Craniovertebral junction is normal . IMPRESSION: 1. No acute abnormality of the cervical spine. 2: Severe cervical spondylosis with fusion at C6-7. Reviewed, dictated and finalized at location []
--- NOTE | ~2023-04-22 | CT_ITS ---
EXAMINATION: CT abd pelvis lumbar w con DATE: 04/22/2023 14:07 INDICATION: Left lower quadrant abdominal pain. TECHNIQUE: Computed tomography (CT) of the lumbar spine was performed with 100 mL Omnipaque 350 intra venous contrast. Automated exposure control and iterative reconstruction technique were employed. The dose-length product was 1012.47 mGy-cm. COMPARISON: CT 04/07/2023 FINDINGS: CT ABDOMEN AND PELVIS: The visualized portions of the lung bases demonstrate mild atelectasis. There are airspace opacities in right middle lobe and right lower lobe. There is a trace right pleural effu ariana. Calcified right lung nodules are consistent with old granulomatous disease. There are changes o f left-sided thoracotomy. Cardiomegaly is noted. No pericardial effusion. There is a small sliding hi atal hernia. There are changes of cholecystectomy. There is a 4 mm cyst in the liver. There is mild i ntrahepatic biliary duct dilatation and dilatation of the common duct to 12 mm, likely not clinically significant given the normal liver function tests. The spleen, pancreas, and adrenal glands are norm al. There is cortical thinning of right kidney. There are cysts in the kidneys measuring up to 2.0 cm on the left. There are no dilated loops of bowel. There are surgical changes in right colon. The lef t periuterine veins and left ovarian vein are enlarged, consistent with pelvic venous insufficiency. Aortic atherosclerosis is noted. There are no pathologically enlarged lymph nodes. There is no free i ntraperitoneal fluid. There is a healing midline abdominal incision. There are bilateral hip arthropl asties. There are changes of anterior fusion procedure from T10 to T12. CT LUMBAR SPINE: There is 3 mm retrolisthesis of L1 on L2. Vertebral body heights are normal. There i s mildly decreased disc height at T12-L1, severely decreased disc height at L1-L2 and L4-L5, and mode rately decreased disc height at L5-S1 with endplate remodeling. The following disc levels are specifi antoinette discussed: L1-L2: The disc is bulging. There is mild bilateral facet joint osteoarthritis. There is moderate deanna ateral neural foraminal stenosis. There is mild central canal stenosis. L2-L3: The disc is bulging. There is mild bilateral facet joint osteoarthritis. There is mild bilater al neural foraminal stenosis. There is mild central canal stenosis. L3-L4: The disc is bulging. There is severe bilateral facet joint osteoarthritis. There is mild bilat eral neural foraminal stenosis. There is no central canal stenosis. L4-L5: The disc is bulging. There is severe bilateral facet joint osteoarthritis. There is moderate r ight and mild left neural foraminal stenosis. There is mild central canal stenosis. L5-S1: The disc is bulging. There is severe bilateral facet joint osteoarthritis. There is mild bilat eral neural foraminal stenosis. There is mild central canal stenosis. IMPRESSION: 1. Airspace opacities in right middle lobe and right lower lobe with improvement from 04/07/2023, consi stent with atelectasis versus pneumonia. 2. Small sliding hiatal hernia. 3. Pelvic venous insufficiency. 4. Severe lumbar spondylosis. Reviewed, dictated and finalized at location A. IMPRESSION: 1. Airspace opacities in right middle lobe and right lower lobe with improvemen t from 04/07/2023, consistent with atelectasis versus pneumonia. 2. Small sliding hiatal hernia. 3. Pelvic venous insufficiency. 4. Severe lumbar spondylosis.
--- NOTE | ~2023-04-22 | CT_ITS ---
EXAMINATION: CT thoracic spine wo con DATE: 04/22/2023 14:07 INDICATION: Back pain. TECHNIQUE: Computed tomography (CT) of the thoracic spine was performed without intravenous contrast. Automated exposure control and iterative reconstruction technique were employed. The dose-length pro duct was 1009.17 mGy-cm. COMPARISON: Chest CT 04/07/2023 FINDINGS: There are airspace opacities in the dependent right lower lobe with interval improvement, c onsistent with atelectasis versus pneumonia. There are changes of left-sided thoracotomy. There is 7 degrees dextrocurvature of thoracic spine. There is 2 mm anterolisthesis of C7 on T1. There is kyphos is of thoracic spine. There is interbody fusion at C6-C7. There are changes of anterior fusion proced ure from T10 to T12 with left lateral plate and screws and interbody bridging bone. There is mild chr onic anterior wedging of T10 vertebral body. There is mildly decreased disc height at multiple levels . There is moderately decreased disc height at T6-T7 and T7-T8 and severely decreased disc height at T9-T10. There is multilevel facet joint osteoarthritis, severe at multiple levels. There is mild neur al foraminal stenosis at multiple levels bilaterally. On the left, there is moderate neural foraminal stenosis at T8-T9 and T9-T10. There is no central canal stenosis in thoracic spine. IMPRESSION: 1. Severe thoracic spondylosis, worst at T9-T10. 2. Anterior fusion procedure from T10 to T12. 3. Airspace opacities in dependent right lung lower lobe with improvement from 04/07/2023, consistent w ith atelectasis versus pneumonia. Reviewed, dictated and finalized at location A. IMPRESSION: 1. Severe thoracic spondylosis, worst at T9-T10. 2. Anterior fusion procedure from T10 to T12. 3. Airspace opacities in dependent right lung lower lobe with improvement from 04/07/2023, consistent with atelectasis versus pneumonia.
[2023-04-22 11:48] VITALS: BP 139/57; PULSE 77; RESP 18; TEMP 36.7; O2SAT 97
[2023-04-22 12:10] VITALS: BP 141/89; PULSE 85; RESP 20; O2SAT 98
--- NOTE | 2023-04-22 12:10 | ECG_ITS ---
Measurements Intervals Adams Rate: 79 P: 57 OK: 142 QRS: -11 QRSD: 92 T: -14 QT: 367 QTc: 422 Interpretive Statements SINUS RHYTHM INCOMPLETE RIGHT BUNDLE BRANCH BLOCK cRITERIA FOR LVH, CONSIDER NORMAL VARIANT [MEETS CRITERIA IN ONE OF: R(aVL), S(V1), R(V5), R(V5/V6)+S(V1)] NONSPECIFIC T-WAVE ABNORMALITY COMPARED TO ECG 04/08/2023 06:13:23 NO SIGNIFICANT CHANGES Electronically Signed On 04-22-2023 13:38:03 CDT by Martin Mcknight M.D.
[2023-04-22 12:46] VITALS: BP 121/76
[2023-04-22 12:55] LABS: Basophils Absolute Auto 0.1 K/mm3 (0.0-0.1); Eosinophils Absolute Auto 0.6 K/mm3 (0-0.3); Eosinophils Percent Auto 7.9 % (0-4.4); Hematocrit 36.3 % (37.0-47.0); Hemoglobin 11.4 g/dL (12.0-15.0); Immature Granulocyte Absolute 0.03 K/mm3 (0.00-0.031); Immature Granulocyte Percent A 0.4 % (0-0.5); Lymphocytes Absolute Auto 1.19 K/mm3 (0.9-3.2); Lymphocytes Percent Auto 17.1 % (18.3-44.2); Mean Corpuscular HGB Conc 31.4 g/dl (32-36); Mean Corpuscular Hemoglobin 29.7 pg (26-34); Mean Corpuscular Volume 94.5 fl (80-100); Mean Platelet Volume 9.9 fl (7.4-10.4); Monocytes Absolute Auto 0.4 K/mm3 (0.1-0.6); Monocytes Percent Auto 6.2 % (2.6-8.5); Neutrophils Absolute Auto 4.7 K/mm3 (1.3-6.7); Neutrophils Percent Auto 67.4 % (45.5-73.1); Platelet Count Result 302 k/mm3 (150-375); Red Blood Count 3.84 M/mm3 (4.2-5.4); Red Cell Distribution Width 13.9 % (11.5-14.5)
--- NOTE | 2023-04-22 13:20 | ED.GENADULT ---
HPI - General Adult General Chief complaint: Unspecified Stated complaint: POST OP BACK/GROIN PAIN AFTER HERNIA REPAIR 03/30 Time Seen by Provider: 04/22/23 12:10 History of Present Illness HPI narrative: Patient with history of chronic back pain, with multiple surgeries including surgeries or C-spine, T-spine, L-spine, with left sided radiculopathy, status post multiple rounds of physical therapy, pain specialist, presents because since her last surgery to weeks ago, she seems to be having an acute exacerbation of this chronic pain. She had also noticed that it feels as if she cannot feel herself urinating. Related Data Home Medications Medication Instructions Recorded Confirmed aspirin 81 mg tablet,delayed 81 mg PO DAILY 09/20/19 04/13/23 release polyethylene glycol 3350 17 17 g PO DAILY 02/01/23 04/13/23 gram/dose oral powder (Miralax) levothyroxine 100 mcg tablet 100 mcg PO QAM 03/24/23 04/13/23 Lactobacillus rhamnosus GG 20 cell PO 04/13/23 04/13/23 billion cell capsule (Probiotic Digestive Care) acetaminophen 650 mg 650 mg PO Q8H 04/13/23 04/13/23 tablet,extended release (Tylenol 8 Hour) cetirizine 10 mg tablet (All Day 10 mg PO DAILY PRN 04/13/23 04/13/23 Allergy (cetirizine)) Allergies Allergy/AdvReac Type Severity Reaction Status Date / Time meperidine Allergy Severe stroke Verified 04/22/23 12:09 like sx morphine Allergy Severe Anaphylaxis Verified 04/22/23 12:09 hydromorphone [From Dilaudid] AdvReac Vomiting Verified 04/22/23 12:09 Review of Systems Review of Systems: CONST: No fever. HEENT: No sore throat C/V: No chest pain RESP: No cough GI: Status post recent abdominal surgery but no severe abdominal pain : No dysuria. M/S: severe low back pain radiating down left leg SKIN: No rash. NEURO: Numbness, weakness going down left leg PSYCH: [No depression] [facility] Past Medical History Medical History Abdominal pain Abnormality of gait Acute back pain Acute nasopharyngitis Acute neck pain Allergic rhinitis Asthma exacerbation, mild Barretts esophagus Bronchitis Chest pain Choking Chronic gastritis without bleeding Chronic sinusitis Chronic sinusitis Cough Debility Dyspepsia Elevated blood sugar Encounter for surgical aftercare following surgery on the digestive system Eosinophil count raised Epigastric pain Fall Family history of colon cancer Fatigue Fatigue Gastritis Hiatal hernia without gangrene and obstruction Hip pain History of cerebrovascular accident (CVA) involving cerebellum Hypothyroidism (acquired) Hypoxemia LUQ abdominal pain Mixed hyperlipidemia Muscle cramps Muscle spasm of back Muscle spasms of both lower extremities Nonerosive esophageal reflux disease Other chronic pain Overweight (BMI 25.0-29.9) Pallor Palpitations Pancreatic cyst Postoperative hypothyroidism Rib pain on right side Shortness of breath Subacute sinusitis Transient cerebral ischemia Trochanteric bursitis of right hip Ventral hernia Weakness Surgical History Surgical History H/O hemicolectomy 06/30/22 Laparoscopic, hand assisted, Right Hemicolectomy History of bilateral hip replacements History of cholecystectomy History of colon surgery History of discectomy History of fusion of cervical spine History of incisional hernia repair 03/28/2023 Open reducible incisional hernia repair with retro rectus placement of Bard soft mesh. History of lumbar fusion History of right knee joint replacement History of thyroidectomy, total Family History Family History Father Patient's father is Family history of tuberculosis, Onset Age: 72 Diabetes mellitus Mother Family history of cardiomyopathy Family history of elevated blood lipids Hypertension Other Cerebrovascular accident Social His
[2023-04-22 13:39] LABS: Alanine Aminotransferase 19 U/L (6-35); Alkaline Phosphatase 53 U/L (38-126); Anion Gap 4 mmol/L (8-16); Aspartate Amino Transferase 25 U/L (14-36); Bilirubin,Total 0.4 mg/dL (0.2-1.3); Blood Urea Nitrogen 18 mg/dL (7-17); Calcium 8.9 mg/dL (8.4-10.2); Carbon Dioxide 28 mmol/L (22-30); Chloride 105 mmol/L (98-107); Estimated CRCL calculation 58 ml/min; Estimated Glomerular Filt Rate > 60; Glucose 90 mg/dL (65-110); Lipase 98 U/L (23-300); Sodium 137 mmol/L (137-145)
[2023-04-22 13:50] LABS: Appearance Urine Clear (Clear); Bacteria Urine None Seen /hpf; Bilirubin Urine Negative (Negative); Color Urine Yellow (Yellow); Glucose Urine UA Negative (Negative); Ketones Urine Negative (Negative); Leukocyte Esterase Ur Negative LEU/UL (Negative); Need Manual Microscopic Reviewed; Nitrate Urine Negative (Negative); Non Pathogenic Casts 0-2; Protein Urine Negative (Negative); RBC Urine 0-2 /hpf (0-2); Specific Grav Ur 1.006 (1.001-1.035); Squamous Epithelial Cell Urine None seen /hpf (Few); Urobilinogen Urine 0.2 mg/dL (<2.0); WBC Urine 0-5 /hpf
[2023-04-22 13:57] LABS: Add Urine Microscopic? YES
[2023-04-22 14:17] VITALS: BP 131/56; PULSE 75; RESP 16; O2SAT 100
[2023-04-22] MEDS: predniSONE 20 MG TABLET 40 MG PO (15:00)
[2023-04-22] MEDS: HYDROcodone/acetaminophen (*CRX) 5-325 MG TABLET 1 TAB PO (15:00)
[2023-04-22 15:02] VITALS: BP 159/72
[2023-04-22 15:36] VITALS: BP 149/71; PULSE 80; RESP 18; O2SAT 97
== END 2023-04-22 15:37 | disposition home or self-care (01) ==
PROVIDERS: Emergency Provider Emergency Medicine; PCP Family Medicine
DX: M54.9 Dorsalgia, unspecified (principal); M54.10 Radiculopathy, site unspecified; G89.29 Other chronic pain; E78.2 Mixed hyperlipidemia; E89.0 Postprocedural hypothyroidism; K22.70 Barrett's esophagus without dysplasia; K29.50 Unspecified chronic gastritis without bleeding; J32.9 Chronic sinusitis, unspecified; Z96.643 Presence of artificial hip joint, bilateral; Z96.651 Presence of right artificial knee joint; Z90.49 Acquired absence of other specified parts of digestive tract; Z98.1 Arthrodesis status; Z86.73 Personal history of transient ischemic attack (TIA), and cerebral infarction without residual deficits; Z79.82 Long term (current) use of aspirin
CPT/HCPCS: 36415; 72125; 72128; 72132; 74177; 80053; 81001; 83690; 85025; 93005; 99284; A9270; J7512; Q9967

== ENCOUNTER 2023-06-12 09:36 | Outpatient (CLI) | payer MEDICARE, SELFPAY ==
--- NOTE | ~2023-06-12 | MR_ITS ---
MRI of the lumbar spine Clinical History: Spondylosis Technique: Axial T2-weighted images, and sagittal T1-weighted, T2-weighted, and T2 fat-sat images wer e acquired. Following intravenous administration of 15 cc MultiHance gadolinium, T1-weighted fat-sat imaging was performed in the axial and sagittal planes. Findings: There is no acute fracture. There is 5 mm retrolisthesis of L1 over L2. Orthopedic fusion h ardware is partially imaged at the lower thoracic spine involving at least T11 and T12. No suspicious bone marrow signal abnormality seen. At L1-L2, there is severe degenerative disc narrowing. There is mild disc bulge and mild facet arthro estelle. No central canal stenosis. There is moderate to severe left neural foraminal narrowing, and mo derate right neural foraminal narrowing. At L2-L3, there is minimal disc bulge and mild to moderate facet arthropathy. No central canal stenos is. There is moderate bilateral neural foraminal narrowing. At L3-L4, there is minimal disc bulge and moderate to advanced facet arthropathy. No central canal st enosis. There is moderate right neural foraminal narrowing and mild left neural foraminal narrowing. At L4-L5, there is advanced degenerative disc narrowing. There is central disc protrusion with modera te facet arthropathy. No allen central canal stenosis. There is moderate to advanced right neural for aminal narrowing, and mild left neural foraminal narrowing. At L5-S1, there is moderate degenerative disc narrowing with minimal disc bulge. There is moderate to advanced facet arthropathy, right worse than left. No central canal stenosis. There is moderate to a dvanced bilateral neural foraminal narrowing. Paravertebral soft tissues are unremarkable. No abnormal/suspicious postcontrast enhancement identifi ed. Impression: 5 mm retrolisthesis of L1 over L2. Moderate degenerative spondylosis, as detailed above, with multilevel neural foraminal narrowing thro ughout the lumbar spine. Partially imaged spinal fusion hardware involving T11 and T12. Reviewed, dictated and finalized at location . Impression: 5 mm retrolisthesis of L1 over L2. Moderate degenerative spondylosis, as detailed above, with multilevel neural fo raminal narrowing throughout the lumbar spine. Partially imaged spinal fusion hardware involving T11 and T12.
--- NOTE | ~2023-06-12 | MR_ITS ---
MRI of the cervical spine Clinical History: Spondylosis Technique: Axial T2-weighted and gradient images, and sagittal T1-weighted, T2-weighted, and STIR jenn ges were acquired. Following intravenous administration of 15 cc MultiHance gadolinium, T1-weighted f at-sat imaging was performed in the axial and sagittal planes. Findings: No acute fracture seen. Minimal grade 1 retrolisthesis of C5 over C6 present. There is alisson re degenerative disc narrowing and probable partial fusion across the C6-C7 disc space. There is alisson re degenerative disc narrowing at C5-C6. No suspicious bone marrow signal abnormality seen. At C2-C3, there is small central disc bulge. No spinal canal stenosis, cord compression, or neural fo raminal narrowing. At C3-C4, there is central disc protrusion. No spinal canal stenosis, cord compression, or neural for aminal narrowing. There is mild bilateral facet arthropathy. At C4-C5, there is minimal disc bulge. There is right-sided facet arthropathy. No central canal steno sis, cord compression, or definite neural foraminal narrowing. At C5-C6, there is disc osteophyte complex with mild canal stenosis and probable minimal flattening t he ventral cord. There is bilateral neural foraminal narrowing. At C6-C7, there is no disc bulge or herniation. No spinal canal stenosis, cord compression, or neural foraminal narrowing. No abnormal signal seen in the spinal cord. Paravertebral soft tissues are unremarkable. No suspiciou s postcontrast enhancement identified. Impression: Mild degenerative spondylosis overall, as detailed above, worst at C5-C6. Minimal grade 1 retrolisthesis of C5 over C6. Reviewed, dictated and finalized at [facility]. Impression: Mild degenerative spondylosis overall, as detailed above, worst at C5-C6. Minimal grade 1 retrolisthesis of C5 over C6.
== END 2023-06-12 09:37 | disposition home or self-care (01) ==
PROVIDERS: PCP Family Medicine; Visit Provider Neurological Surgery
DX: M43.06 Spondylolysis, lumbar region (principal); M47.812 Spondylosis without myelopathy or radiculopathy, cervical region
CPT/HCPCS: 72156; 72158; A9577

== ENCOUNTER → 2023-08-22 08:58 | Outpatient (CLI) | payer MEDICARE, SELFPAY ==
--- NOTE | ~2023-08-22 | XR_ITS ---
XR_[id number] DATE: 08/22/2023 09:23 INDICATION: Left knee pain TECHNIQUE: AP and lateral views COMPARISON: None FINDINGS: There is very prominent joint space narrowing and periarticular spurring at the medial comp artment. There is joint space narrowing and prominent spurring at the patellofemoral joint is well. I of the l ateral compartment joint space is well preserved. There is chondrocalcinosis. Osteopenia. No fracture or dislocation or joint effusion, periosteal reaction or bone destruction is detected. No apparent radiopaque intra-articular loose body. IMPRESSION: Severe osteoarthritic change at the medial and patellofemoral compartments Chondrocalcinosis Osteopenia Reviewed, dictated and finalized at Location A. Reviewed, dictated and finalized at location B. IMPRESSION: Severe osteoarthritic change at the medial and patellofemoral meka rtments Chondrocalcinosis Osteopenia
== END ==
PROVIDERS: PCP Nurse Practitioner Family; Visit Provider Nurse Practitioner Family
DX: M17.12 Unilateral primary osteoarthritis, left knee (principal); M85.862 Other specified disorders of bone density and structure, left lower leg
CPT/HCPCS: 73560

== ENCOUNTER 2023-09-03 08:03 | Outpatient (CLI) | payer MEDICARE, SELFPAY ==
[2023-09-03 08:44] LABS: Basophils Absolute Auto 0.1 K/mm3 (0.0-0.1); Eosinophils Absolute Auto 0.4 K/mm3 (0-0.3); Hematocrit 33.4 % (37.0-47.0); Hemoglobin 10.2 g/dL (12.0-15.0); Immature Granulocyte Absolute 0.03 K/mm3 (0.00-0.031); Immature Granulocyte Percent A 0.6 % (0-0.5); Lymphocytes Absolute Auto 1.85 K/mm3 (0.9-3.2); Lymphocytes Percent Auto 37.9 % (18.3-44.2); Mean Corpuscular HGB Conc 30.5 g/dl (32-36); Mean Corpuscular Hemoglobin 27.8 pg (26-34); Monocytes Absolute Auto 0.4 K/mm3 (0.1-0.6); Monocytes Percent Auto 7.2 % (2.6-8.5); Neutrophils Absolute Auto 2.1 K/mm3 (1.3-6.7); Neutrophils Percent Auto 43.3 % (45.5-73.1); Platelet Count Result 245 k/mm3 (150-375); Red Blood Count 3.67 M/mm3 (4.2-5.4); Red Cell Distribution Width 15.2 % (11.5-14.5); White Blood Count 4.9 K/mm3 (4.5-10.0)
[2023-09-03 08:52] LABS: Alanine Aminotransferase 18 U/L (6-35); Albumin Level 4.2 g/dL (3.5-5.1); Alkaline Phosphatase 47 U/L (38-126); Anion Gap 5 mmol/L (8-16); Aspartate Amino Transferase 24 U/L (14-36); Bilirubin,Total 0.5 mg/dL (0.2-1.3); Blood Urea Nitrogen 18 mg/dL (7-17); Calcium 9.4 mg/dL (8.4-10.2); Carbon Dioxide 27 mmol/L (22-30); Chloride 105 mmol/L (98-107); Cholesterol 287 mg/dL (0-200); Estimated Glomerular Filt Rate > 60; Glucose 96 mg/dL (65-110); Potassium 3.9 mmol/L (3.4-5.0); Sodium 137 mmol/L (137-145); Triglycerides 132 mg/dL (<150)
[2023-09-03 09:00] LABS: LDL Cholesterol Direct 117 mg/dL
[2023-09-03 09:40] LABS: HDL Direct 117 mg/dL
[2023-09-03 10:36] LABS: Free T4 Free Thyroxine 1.37 ng/mL (0.78-2.19)
[2023-09-07 06:06] LABS: Triiodothyronine T3 Free 3.1 pg/mL (2.3-4.2)
== END 2023-09-03 08:04 | disposition home or self-care (01) ==
PROVIDERS: PCP Nurse Practitioner Family; Visit Provider Physician Assistant
DX: E03.9 Hypothyroidism, unspecified (principal); E78.2 Mixed hyperlipidemia; D64.9 Anemia, unspecified
CPT/HCPCS: 36415; 80053; 80061; 82607; 84439; 84443; 84481; 85025

== ENCOUNTER 2023-09-08 13:19 | Outpatient (CLI) | payer MEDICARE, SELFPAY ==
[2023-09-08 16:23] LABS: Magnesium 2.1 mg/dL (1.6-2.3)
== END 2023-09-08 13:20 | disposition home or self-care (01) ==
PROVIDERS: PCP Family Medicine; Visit Provider Physician Assistant
DX: E83.41 Hypermagnesemia (principal)
CPT/HCPCS: 36415; 83735

== ENCOUNTER 2023-09-12 10:15 | Outpatient (CLI) | payer MEDICARE, SELFPAY ==
--- NOTE | ~2023-09-12 | XR_ITS ---
Supine and upright views of the abdomen Clinical history: Abdominal pain Findings: Bowel gas pattern is nonspecific. No evidence for obstruction or free air. No abnormal mass lesion or calcification is seen. Cholecystectomy clips noted. There is degenerative change of lumbar spine. Bilateral hip arthroplasties are in place. Spinal fixation hardware noted at the lower thorac ic spine. Impression: No acute abnormality seen. Orthopedic hardware, as above. Reviewed, dictated and finalized at location M. LEAD Impression: No acute abnormality seen. Orthopedic hardware, as above.
--- NOTE | ~2023-09-12 | XR_ITS ---
Clinical Indication: Chest pain PA and lateral views of the chest: Comparison: 01/24/2023 Findings: The lungs are clear, without evidence of focal consolidation or pleural effusion. Cardiome diastinal silhouette is stable. Stable thoracic spine fixation hardware. Impression: Clear lungs. Reviewed, dictated and finalized at [facility]. [employer] Impression: Clear lungs.
== END 2023-09-12 10:16 | disposition home or self-care (01) ==
PROVIDERS: PCP Family Medicine; Visit Provider Physician Assistant
DX: R10.12 Left upper quadrant pain (principal); R07.81 Pleurodynia
CPT/HCPCS: 71046; 74018

== ENCOUNTER → 2023-09-22 08:49 | Outpatient (CLI) | payer MEDICARE, SELFPAY ==
--- NOTE | ~2023-09-22 | MMUS_ITS ---
EXAMINATION: MM diagnostic aurea BI w alejandro, US breast LT limited HISTORY: Palpable lump of the lower inner left breast TECHNIQUE: Craniocaudal, mediolateral, and mediolateral oblique 3-D tomosynthesis images of the left breast were performed and synthetic 2-D images were generated. CAD analysis was submitted and interpr eted. High resolution limited left breast ultrasound was performed. COMPARISON: 11/18/2015, 10/22/2009 BREAST PARENCHYMAL COMPOSITION: The breasts are almost entirely fatty. FINDINGS: MAMMOGRAPHIC FINDINGS: Left breast: There is an 8 mm irregular high density mass with spiculated margins in the middle third of the lower inner breast at the 7:00 location, 5 cm from the nipple corresponding to the palpable a bnormality of concern. Right breast: No suspicious mass, calcification, or architectural distortion are identified to sugges t malignancy. There has been no suspicious interval change. ULTRASOUND: There is a 10 mm x 9 mm hypoechoic mass with indistinct and irregular margins at the 5:00 location, 2 cm from the nipple corresponding to the palpable abnormality of concern. The mass demonstrates inter nal vascularity with no distinct posterior features. IMPRESSION: 1. Suspicious left breast mass corresponding to the palpable abnormality of concern. 2. Ultrasound-guided biopsy is recommended. BI-RADS category 5, highly suggestive of malignancy. Reviewed, dictated and finalized at location A. A [employer] IMPRESSION: 1. Suspicious left breast mass corresponding to the palpable abnormality of con cern. 2. Ultrasound-guided biopsy is recommended. BI-RADS category 5, highly suggestive of malignancy.
== END ==
PROVIDERS: PCP Family Medicine; Visit Provider Physician Assistant
DX: N63.20 Unspecified lump in the left breast, unspecified quadrant (principal); N64.4 Mastodynia; R92.8 Other abnormal and inconclusive findings on diagnostic imaging of breast
CPT/HCPCS: 76642; 77062; 77066; G0279

== ENCOUNTER → 2023-09-27 13:49 | Outpatient (REF) | payer MEDICARE, SELFPAY | LOC: ANHLAB 13:49 | PROVIDERS: PCP Family Medicine; Visit Provider Surgery | DX: N63.20 Unspecified lump in the left breast, unspecified quadrant (principal) | CPT/HCPCS: 88307; 88342; 88360; 88365 ==

== ENCOUNTER 2023-11-08 11:20 | Outpatient (CLI) | payer MEDICARE, SELFPAY ==
[2023-11-08 12:02] LABS: Basophils Absolute Auto 0.1 K/mm3 (0.0-0.1); Basophils Percent Auto 1.5 % (0.2-1.2); Eosinophils Absolute Auto 0.3 K/mm3 (0-0.3); Eosinophils Percent Auto 5.7 % (0-4.4); Hematocrit 33.5 % (37.0-47.0); Hemoglobin 10.1 g/dL (12.0-15.0); Immature Granulocyte Absolute 0.02 K/mm3 (0.00-0.031); Immature Granulocyte Percent A 0.4 % (0-0.5); Lymphocytes Absolute Auto 1.31 K/mm3 (0.9-3.2); Mean Corpuscular HGB Conc 30.1 g/dl (32-36); Mean Corpuscular Hemoglobin 26.9 pg (26-34); Mean Corpuscular Volume 89.3 fl (80-100); Mean Platelet Volume 10.5 fl (7.4-10.4); Monocytes Absolute Auto 0.3 K/mm3 (0.1-0.6); Monocytes Percent Auto 6.5 % (2.6-8.5); Neutrophils Absolute Auto 3.2 K/mm3 (1.3-6.7); Neutrophils Percent Auto 60.9 % (45.5-73.1); Platelet Count Result 265 k/mm3 (150-375); Red Blood Count 3.75 M/mm3 (4.2-5.4); White Blood Count 5.2 K/mm3 (4.5-10.0)
== END 2023-11-08 11:21 | disposition home or self-care (01) ==
PROVIDERS: PCP Family Medicine; Visit Provider Physician Assistant
DX: D64.9 Anemia, unspecified (principal)
CPT/HCPCS: 36415; 85025

== ENCOUNTER 2023-11-11 10:39 | Outpatient (CLI) | payer MEDICARE, SELFPAY ==
--- NOTE | ~2023-11-11 | XR_ITS ---
Left Shoulder Technique: AP and scapular Y views were obtained. Clinical History: Pain Findings: No fracture or dislocation is seen. Osseous alignment is anatomic. There is moderate degene rative change of the glenohumeral joint. AC joint intact. Soft tissues are unremarkable. Impression: Moderate glenohumeral joint degenerative change. Reviewed, dictated and finalized at location . HEAD COOPER Impression: Moderate glenohumeral joint degenerative change.
== END 2023-11-11 10:40 | disposition home or self-care (01) ==
PROVIDERS: PCP Family Medicine; Visit Provider Internal Medicine Hematology & Oncology
DX: M19.012 Primary osteoarthritis, left shoulder (principal)
CPT/HCPCS: 73030

== ENCOUNTER → 2023-11-23 10:06 | Outpatient (CLI) | payer MEDICARE, SELFPAY ==
--- NOTE | ~2023-11-23 | DEXA_ITS ---
Bone Density Report Name: REJI BAUGH Age: 83 Sex: Female Ethnicity: White Date of : 1940 Indication: postmenopausal; screening for osteoporosis; height loss; prior fracture; cancer; asthma or emphysema; Referring Provider: Carlos Desouza Study: Bone densitometry was performed. Exam Date: November 23, 2023 Accession number: [id number] Bone Density: Region BMD T-score Z-score Classification AP Spine (L1-L4) 1.034 -0.1 2.6 Normal World Health Organization criteria for BMD impression classify patients as: Normal (T-score at or above -1.0), Osteopenia (T-score between -1.0 and -2.5), or Osteoporosis (T-score at or below -2.5). Previous Exams: Region Exam Age BMD T-score BMD Change BMD Change Date g/cm2 vs Baseline vs Previous AP Spine(L1-L4) 11/23/2023 83 1.034 -0.1 0.040* 0.040* 11/18/2015 75 0.994 -0.5 *Denotes significance at 95% confidence level, LSC for AP Spine = 0.022 g/cm2 Clinical Information Provided by Patient: Has had a low trauma fracture Has used the following medications: Vitamin D, radiation 12/04/23 Has the following medical conditions: Asthma or Emphysema, Cancer, thyroid removed Patient maximum height was 67.5 Menopause Age: 52 No regular weight bearing exercise Drinks caffeinated beverages Onset of menses at age 11 Number of children 2 Impression: The patient has normal bone mass. The patient has risk factors, including: previous fracture. No significant bone loss was observed. Discussion: LOW RISK OF FRACTURE; BONE DENSITY IS WELL ABOVE THE MINIMUM DESIRABLE LEVEL AND ABOVE AVERAGE FOR AGE AND SEX AT ALL SKELETAL SITES TESTED. This person's bone density is above expected limits for age and sex. This is rarely clinically significant, but should be pursued if there are significant musculoskeletal complaints. The patient should follow a healthful lifestyle (good nutrition with adequate calcium and vitamin D, and appropriate weight-bearing exercise). Follow-Up: Consider repeating this study in 5 years or sooner if there is some new clinical indication. Reported by: JOSIAS on 11/23/2023 10:22:00 AM. Reviewed, dictated and finalized at location [place]
== END ==
PROVIDERS: PCP Internal Medicine Hematology & Oncology; Visit Provider Internal Medicine Hematology & Oncology
DX: M85.89 Other specified disorders of bone density and structure, multiple sites (principal)
CPT/HCPCS: 77080

== ENCOUNTER 2023-12-12 10:12 | Outpatient (CLI) | payer MEDICARE, SELFPAY ==
[2023-12-12 11:47] LABS: Basophils Absolute Auto 0.1 K/mm3 (0.0-0.1); Basophils Percent Auto 1.3 % (0.2-1.2); Eosinophils Absolute Auto 0.3 K/mm3 (0-0.3); Eosinophils Percent Auto 6.1 % (0-4.4); Hematocrit 37.5 % (37.0-47.0); Hemoglobin 11.2 g/dL (12.0-15.0); Immature Granulocyte Absolute 0.02 K/mm3 (0.00-0.031); Immature Granulocyte Percent A 0.4 % (0-0.5); Lymphocytes Absolute Auto 0.74 K/mm3 (0.9-3.2); Lymphocytes Percent Auto 15.4 % (18.3-44.2); Mean Corpuscular HGB Conc 29.9 g/dl (32-36); Mean Corpuscular Hemoglobin 27.5 pg (26-34); Mean Corpuscular Volume 92.1 fl (80-100); Mean Platelet Volume 10.8 fl (7.4-10.4); Monocytes Absolute Auto 0.4 K/mm3 (0.1-0.6); Monocytes Percent Auto 8.6 % (2.6-8.5); Neutrophils Absolute Auto 3.3 K/mm3 (1.3-6.7); Neutrophils Percent Auto 68.2 % (45.5-73.1); Platelet Count Result 219 k/mm3 (150-375); Red Blood Count 4.07 M/mm3 (4.2-5.4); Red Cell Distribution Width 18.4 % (11.5-14.5); White Blood Count 4.8 K/mm3 (4.5-10.0)
[2023-12-12 12:03] LABS: Anion Gap 3 mmol/L (8-16); Blood Urea Nitrogen 16 mg/dL (7-17); Calcium 9.5 mg/dL (8.4-10.2); Carbon Dioxide 30 mmol/L (22-30); Chloride 105 mmol/L (98-107); Estimated Glomerular Filt Rate > 60; Glucose 103 mg/dL (65-110); Potassium 4.7 mmol/L (3.4-5.0); Sodium 138 mmol/L (137-145)
[2023-12-12 12:15] LABS: Hypochromasia 1+ (NORMAL); Platelet Estimate Adequate (Adequate); Schistocytes None Seen (NORMAL)
== END 2023-12-12 10:13 | disposition home or self-care (01) ==
PROVIDERS: PCP Internal Medicine Hematology & Oncology; Visit Provider Internal Medicine Hematology & Oncology
DX: D64.9 Anemia, unspecified (principal)
CPT/HCPCS: 36415; 80048; 85025

== ENCOUNTER 2023-12-14 09:51 | Outpatient (CLI) | payer MEDICARE, SELFPAY ==
[2023-12-16 21:17] LABS: H pylori, Urea Breath NOT DETECTED (NOT DETECTED)
== END 2023-12-14 09:52 | disposition home or self-care (01) ==
PROVIDERS: PCP Family Medicine; Visit Provider Family Medicine
DX: R10.13 Epigastric pain (principal)
CPT/HCPCS: 83013

== ENCOUNTER 2024-02-10 10:17 | Outpatient (CLI) | payer MEDICARE, SELFPAY ==
--- NOTE | ~2024-02-10 | US_ITS ---
EXAMINATION: US venous doppler [facility] DATE: 02/10/2024 11:08 INDICATION: Left lower limb acute deep vein thrombosis. TECHNIQUE: Grayscale ultrasound images without and with compression and Doppler ultrasound images of the left lower extremity veins were obtained. COMPARISON: Ultrasound 04/07/2023 FINDINGS: The visualized portions of left common femoral vein, profunda (deep) femoral vein, femoral vein, popl iteal vein, peroneal veins, posterior tibial veins, and greater saphenous vein outflow are patent. IMPRESSION: 1. No deep venous thrombosis. Reviewed, dictated and finalized at location A.
== END 2024-02-10 10:18 | disposition home or self-care (01) ==
PROVIDERS: PCP Family Medicine; Visit Provider Internal Medicine Hematology & Oncology
DX: I82.4Y2 Acute embolism and thrombosis of unspecified deep veins of left proximal lower extremity (principal)
CPT/HCPCS: 93971; 99212; G0463

== ENCOUNTER 2024-02-14 10:28 | Outpatient (CLI) | payer MEDICARE, SELFPAY ==
[2024-02-14 11:30] LABS: Basophils Absolute Auto 0.1 K/mm3 (0.0-0.1); Basophils Percent Auto 1.8 % (0.2-1.2); Eosinophils Absolute Auto 0.3 K/mm3 (0-0.3); Eosinophils Percent Auto 8.1 % (0-4.4); Hematocrit 35.5 % (37.0-47.0); Immature Granulocyte Absolute 0.01 K/mm3 (0.00-0.031); Immature Granulocyte Percent A 0.3 % (0-0.5); Lymphocytes Absolute Auto 0.85 K/mm3 (0.9-3.2); Lymphocytes Percent Auto 22.3 % (18.3-44.2); Mean Corpuscular Hemoglobin 29.2 pg (26-34); Mean Corpuscular Volume 94.2 fl (80-100); Mean Platelet Volume 10.6 fl (7.4-10.4); Monocytes Absolute Auto 0.4 K/mm3 (0.1-0.6); Monocytes Percent Auto 9.2 % (2.6-8.5); Neutrophils Absolute Auto 2.2 K/mm3 (1.3-6.7); Neutrophils Percent Auto 58.3 % (45.5-73.1); Platelet Count Result 227 k/mm3 (150-375); Red Blood Count 3.77 M/mm3 (4.2-5.4); White Blood Count 3.8 K/mm3 (4.5-10.0)
[2024-02-14 11:46] LABS: Alanine Aminotransferase 18 U/L (6-35); Albumin Level 4.5 g/dL (3.5-5.1); Alkaline Phosphatase 54 U/L (38-126); Anion Gap 5 mmol/L (4-12); Aspartate Amino Transferase 26 U/L (14-36); Bilirubin,Total 0.5 mg/dL (0.2-1.3); Blood Urea Nitrogen 17 mg/dL (7-17); Calcium 9.9 mg/dL (8.4-10.2); Carbon Dioxide 25 mmol/L (22-30); Chloride 108 mmol/L (98-107); Estimated Glomerular Filt Rate > 60; Glucose 102 mg/dL (65-110); Potassium 3.9 mmol/L (3.4-5.0); Sodium 138 mmol/L (137-145)
[2024-02-14 12:26] LABS: Iron 65 ug/dL (37-170)
[2024-02-14 12:35] LABS: Percent Iron Saturation 16 % (20-50)
== END 2024-02-14 10:29 | disposition home or self-care (01) ==
LOC: ANHLAB 10:32
PROVIDERS: PCP Family Medicine; Visit Provider Physician Assistant
DX: R53.83 Other fatigue (principal); D64.9 Anemia, unspecified; Z96.651 Presence of right artificial knee joint
CPT/HCPCS: 36415; 80053; 82607; 83540; 83550; 85025

== ENCOUNTER 2024-03-09 09:41 | Outpatient (CLI) | payer MEDICARE, SELFPAY ==
[2024-03-09 10:56] LABS: Basophils Absolute Auto 0.1 K/mm3 (0.0-0.1); Basophils Percent Auto 1.7 % (0.2-1.2); Eosinophils Absolute Auto 0.3 K/mm3 (0-0.3); Eosinophils Percent Auto 9.6 % (0-4.4); Hematocrit 37.8 % (37.0-47.0); Hemoglobin 11.8 g/dL (12.0-15.0); Immature Granulocyte Absolute 0.01 K/mm3 (0.00-0.031); Immature Granulocyte Percent A 0.3 % (0-0.5); Lymphocytes Absolute Auto 0.87 K/mm3 (0.9-3.2); Lymphocytes Percent Auto 24.6 % (18.3-44.2); Mean Corpuscular HGB Conc 31.2 g/dl (32-36); Mean Corpuscular Hemoglobin 29.5 pg (26-34); Mean Corpuscular Volume 94.5 fl (80-100); Mean Platelet Volume 10.5 fl (7.4-10.4); Monocytes Absolute Auto 0.3 K/mm3 (0.1-0.6); Monocytes Percent Auto 9.1 % (2.6-8.5); Neutrophils Absolute Auto 1.9 K/mm3 (1.3-6.7); Neutrophils Percent Auto 54.7 % (45.5-73.1); Platelet Count Result 218 k/mm3 (150-375); Red Cell Distribution Width 15.5 % (11.5-14.5); White Blood Count 3.5 K/mm3 (4.5-10.0)
[2024-03-09 11:09] LABS: Alanine Aminotransferase 17 U/L (6-35); Albumin Level 4.4 g/dL (3.5-5.1); Alkaline Phosphatase 50 U/L (38-126); Anion Gap 4 mmol/L (4-12); Aspartate Amino Transferase 25 U/L (14-36); Bilirubin,Total 0.5 mg/dL (0.2-1.3); Blood Urea Nitrogen 18 mg/dL (7-17); Calcium 9.8 mg/dL (8.4-10.2); Carbon Dioxide 29 mmol/L (22-30); Chloride 106 mmol/L (98-107); Estimated Glomerular Filt Rate > 60; Glucose 94 mg/dL (65-110); Potassium 4.3 mmol/L (3.4-5.0); Sodium 139 mmol/L (137-145)
[2024-03-13 01:28] LABS: CA 15-3 5 U/mL (<32)
== END 2024-03-09 09:42 | disposition home or self-care (01) ==
PROVIDERS: PCP Family Medicine; Visit Provider Internal Medicine Hematology & Oncology
DX: C50.912 Malignant neoplasm of unspecified site of left female breast (principal); Z17.0 Estrogen receptor positive status [ER+]
CPT/HCPCS: 36415; 80053; 85025; 86300

== ENCOUNTER 2024-04-03 01:44 | Day surgery (SDC) | payer MEDICARE, SELFPAY ==
[2024-03-26 10:35] VITALS: BMI 27.7
--- NOTE | 2024-03-26 12:41 | PC.NURSE ---
Spoke with PATIENT regarding medication ELIQUIS. Pt. verbalizes understanding that the last dose of ELIQUIS is to be taken on 03/31/2024 and the Endoscopist will instruct them when to restart after the procedure.
[2024-04-03 12:32] VITALS: BP 142/57; PULSE 86; RESP 16; TEMP 36.3; O2SAT 98
--- NOTE | 2024-04-03 12:33 | WPDANESEPPF ---
Anes - Initial Pre Proc Eval Procedure: Operation Date: 04/03/24 13:30 Proposed Procedures p Esophagogastroduodenoscopy - Bishop King MD Date/Time: 04/03/24 12:33 Surgeon: Bishop King MD Pre Op Diagnosis: Epigastric pain, Anorexia, Personal history other Patient Data Age: 83 Gender: F Height: 1.7 m Weight: 80.3 kg Allergies Allergy/AdvReac Type Severity Reaction Status Date / Time meperidine Allergy Severe stroke Verified 04/03/24 12:30 like sx morphine Allergy Severe Anaphylaxis Verified 04/03/24 12:30 hydromorphone [From Dilaudid] AdvReac Intermediate Vomiting Verified 04/03/24 12:30 Home Medications Medication Instructions Recorded Confirmed Type aspirin 81 mg tablet,delayed 81 mg PO DAILY 09/20/19 04/03/24 History release albuterol sulfate 90 mcg/actuation 2 puff inhalation QID PRN 04/11/23 04/03/24 Rx aerosol inhaler (Ventolin HFA) shortness of breath or wheezing #8.5 grams acetaminophen 650 mg 650 mg PO Q8H PRN Pain 04/13/23 04/03/24 History tablet,extended release (Tylenol 8 Hour) cetirizine 10 mg tablet (All Day 10 mg PO DAILY PRN Allergy Symptoms 04/13/23 04/03/24 History Allergy (cetirizine)) levothyroxine 100 mcg tablet See Rx Instructions .Route 08/21/23 04/03/24 Rx .COMPLEX #90 tabs Lactobacillus 1 cap PO DAILY 10/07/23 04/03/24 History acidophilus-Bifidobac.animalis 2.5 billion cell capsule (Daily Probiotic) docusate sodium 100 mg capsule 100 mg PO DAILY 10/07/23 04/03/24 History (Stool Softener) multivitamin with iron-mineral 1 tablet PO DAILY 10/07/23 04/03/24 History anastrozole 1 mg tablet 1 mg PO DAILY 01/27/24 04/03/24 History omeprazole 40 mg capsule,delayed 40 mg PO DAILY #90 caps 02/14/24 04/03/24 Rx release ferrous sulfate 325 mg (65 mg 325 mg PO DAILY #90 tabs 02/16/24 04/03/24 Rx iron) tablet,delayed release apixaban 5 mg tablet (Eliquis) 2.5 mg PO BID 03/26/24 04/03/24 History cholecalciferol (vitamin D3) 125 125 mcg PO DAILY 03/26/24 04/03/24 History mcg (5,000 unit) tablet (Vitamin D3) fluticasone fur. 100 mcg-umeclid 1 inh inhalation DAILY PRN 03/26/24 04/03/24 History 62.5 mcg-vilant 25 mcg Shortness Of Breath Or Wheezing inhalat.powder (Trelegy Ellipta) gabapentin 100 mg capsule 200 mg PO TID PRN Pain 03/26/24 04/03/24 History Patient hx anesthesia problems: none Family hx anesthesia problems: none Results Review: All pre-operative results and documents have been reviewed as part of the pre-operative evaluation. [facility] Past Medical History Medical History Abdominal pain Abnormality of gait Acute back pain Acute nasopharyngitis Acute neck pain Allergic rhinitis Asthma exacerbation, mild Barretts esophagus Bronchitis Cervical spondylosis Chest pain Choking Chronic gastritis without bleeding Chronic sinusitis Chronic sinusitis Cough Debility Dyspepsia Elevated blood sugar Encounter for surgical aftercare following surgery on the digestive system Eosinophil count raised Epigastric pain Fall Family history of colon cancer Fatigue Fatigue Gastritis Hernia wide mouth Hernia removal - 03/28/2023 Hiatal hernia without gangrene and obstruction Hip pain History of cerebrovascular accident (CVA) involving cerebellum Hypothyroidism (acquired) Hypoxemia Lumbar spondylolysis LUQ abdominal pain Mixed hyperlipidemia Muscle cramps Muscle spasm of back Muscle spasms of both lower extremities Nonerosive esophageal reflux disease Other chronic pain Overweight (BMI 25.0-29.9) Pallor Palpitations Pancreatic cyst Postoperative hypothyroidism Rib pain on right side Shortness of breath Subacute sinusitis Transient cerebral ischemia Trochanteric bursitis of right hip Ventral hernia Weakness Surgical History Surgical History H/O hemicolectomy 06/30
[2024-04-03] MEDS: LACTATED RINGERS 1,000 ML 150 ML IV CONT (12:42)
--- NOTE | 2024-04-03 12:52 | PM.HPGS ---
History of Present Illness History of Present Illness Consent: Risks, benefits, and alternatives have been discussed and questions answered. Patient agrees to proceed with procedure. Chief complaint: Epigastric pain, Anorexia, Personal history other Narrative: Belen Bliss is a 83 year old female with epigastric pain, also growling stomach 30 minutes after eating , CT scan last year no GI findings but had PE, s/p ventral hernia surgery Review of Systems Review of Systems: All systems reviewed & are unremarkable except as noted in HPI and below PMFSH Past Medical History Medical History Abdominal pain Abnormality of gait Acute back pain Acute nasopharyngitis Acute neck pain Allergic rhinitis Asthma exacerbation, mild Barretts esophagus Bronchitis Cervical spondylosis Chest pain Choking Chronic gastritis without bleeding Chronic sinusitis Chronic sinusitis Cough Debility Dyspepsia Elevated blood sugar Encounter for surgical aftercare following surgery on the digestive system Eosinophil count raised Epigastric pain Fall Family history of colon cancer Fatigue Fatigue Gastritis Hernia wide mouth Hernia removal - 03/28/2023 Hiatal hernia without gangrene and obstruction Hip pain History of cerebrovascular accident (CVA) involving cerebellum Hypothyroidism (acquired) Hypoxemia Lumbar spondylolysis LUQ abdominal pain Mixed hyperlipidemia Muscle cramps Muscle spasm of back Muscle spasms of both lower extremities Nonerosive esophageal reflux disease Other chronic pain Overweight (BMI 25.0-29.9) Pallor Palpitations Pancreatic cyst Postoperative hypothyroidism Rib pain on right side Shortness of breath Subacute sinusitis Transient cerebral ischemia Trochanteric bursitis of right hip Ventral hernia Weakness Surgical History Surgical History H/O hemicolectomy 06/30/22 Laparoscopic, hand assisted, Right Hemicolectomy History of bilateral hip replacements History of cholecystectomy History of colon surgery History of discectomy History of fusion of cervical spine History of incisional hernia repair 03/28/2023 Open reducible incisional hernia repair with retro rectus placement of Bard soft mesh. History of lumbar fusion History of right knee joint replacement History of thyroidectomy, total Family History Family History Father Patient's father is Family history of tuberculosis, Onset Age: 72 Diabetes mellitus Mother Family history of cardiomyopathy Family history of elevated blood lipids Hypertension Sibling Diabetes mellitus Hypertension Cerebrovascular accident Thyroid disorder Heart problem Social History Social History Social History: one son Smoking packs per day: 0 Smoking cigarettes per day: 0.0 Years smoked: 0 Smoking pack-years: 0.00 Smoking status: Never smoker Second hand tobacco smoke exposure: No Alcohol intake: current Substance use: never Substance use type: does not use Do You Feel Safe in your Home?: Yes Lack of Transportation: No Lack of Food: Never True Current Housing: I Have Housing Concerned About Future Housing: No Difficulty Paying Gas/Electric Bills: No Difficulty Paying for Meds: YES Currently Unemployed: No Education: High School Diploma/GED Difficulty w/ Childcare or Family Care: No Living arrangements: alone Occupation/Education: retired Gender identity (if verbalized by the patient): Female Sexual Orientation (if Verbalized by the Patient): Straight or Heterosexual Spiritual care concerns: No Meds Home Medications and Allergies Home Medications Medication Instructions Recorded Confirmed Type aspirin 81 mg tablet,delayed 81 mg PO
[2024-04-03 13:10] VITALS: BP 139/90; PULSE 84; RESP 22; O2SAT 99
[2024-04-03 13:20] VITALS: BP 145/78; PULSE 80; RESP 20; O2SAT 98
[2024-04-03 13:30] VITALS: BP 159/79; PULSE 78; RESP 18; O2SAT 99
--- NOTE | 2024-04-03 13:43 | SUR.PHASEII ---
1310: PT AWAKE AND ALERT, PT COUGHING WEAK COUGH WITH SPUTUM, PT ABLE TO EXCRETE PHELGM ON HER OWN, NO DIFFICULTY BREATHING, PT EATING ICE CHIPS TO HELP CLEAR THROAT, PT DENIES ANY DIFFICULTY BREATHING. 1330: PT CONTINUES TO COUGH FREQUENTLY WITH SPONTANEOUS EXPECTORANT OF SPUTUM, PT CONTINUES TO DENY DIFFICULTY BREATHING, AUDIBLE SLIGHT WHEEZE NOTED UPON DEEP BREATHS, DR WEBER NOTIFIED, OFFERED PT BREATHING TREATMENT PER ORDERS IF SHE FEELS SHE NEEDS ONE, PT DENIES THE NEED AND STATES I AM OK AND THE ICE CHIPS ARE HELPING. I DO NOT FEEL A BREATHING TREATMENT WILL HELP. 1348: DR WEBER HERE TO SEE PT, PT CONTINUES TO WHEEZE WITH COUGH, PT AGREEABLE TO BREATHING TREATMENT PER ORDERS AT THIS TIME, RESPIRATORY CALLED AND NOTIFIED. 1405: RESPIRATORY HERE WITH BREATHING TREATMENT, PT TOLERATED WELL
[2024-04-03 14:00] VITALS: PULSE 74; RESP 18
[2024-04-03] MEDS: ALBUTEROL SULFATE NEB 2.5 MG/3 ML INH INHALATION (14:00)
[2024-04-03 14:08] VITALS: PULSE 76; RESP 18
== END 2024-04-03 14:14 | disposition home or self-care (01) ==
PROVIDERS: PCP Family Medicine; Visit Provider Internal Medicine Gastroenterology
PROC: 0DJ08ZZ Inspection of Upper Intestinal Tract, Via Natural or Artificial Opening Endoscopic (ICD-10-PCS; CPT 43235; principal; 2024-04-03 13:30)
DX: K29.50 Unspecified chronic gastritis without bleeding (principal); K44.9 Diaphragmatic hernia without obstruction or gangrene; J45.909 Unspecified asthma, uncomplicated; E78.2 Mixed hyperlipidemia; E03.9 Hypothyroidism, unspecified; Z90.49 Acquired absence of other specified parts of digestive tract; Z98.1 Arthrodesis status; Z79.82 Long term (current) use of aspirin; Z79.51 Long term (current) use of inhaled steroids; Z79.01 Long term (current) use of anticoagulants
CPT/HCPCS: 43239; 88305; 94640; J2704; J7120

== ENCOUNTER 2024-05-08 09:48 | Outpatient (CLI) | payer MEDICARE, SELFPAY ==
--- NOTE | ~2024-05-08 | MM_ITS ---
EXAMINATION: MM diagnostic aurea BI w alejandro HISTORY: Status post left breast lumpectomy TECHNIQUE: 3-D tomosynthesis images of the bilateral breasts were performed and synthetic 2-D images were generated. CAD analysis was submitted and interpreted. COMPARISON: 09/22/2023,11/18/2015 BREAST PARENCHYMAL COMPOSITION:Not Dense. The breasts are almost entirely fatty FINDINGS: Patient is status post interval lumpectomy of the small mass seen on the most recent prior exam at the lower, inner left breast. There is biopsy clip in this region with focal postoperative di stortion. No suspicious mass lesion or suspicious distortion seen in either breast. No suspicious ubaldo rocalcifications. IMPRESSION: No mammographic evidence for malignancy. Postoperative change in the left breast. BI-RADS Category 2: Benign finding(s). Reviewed, dictated and finalized at location . IMPRESSION: No mammographic evidence for malignancy. Postoperative change in the left breas t. BI-RADS Category 2: Benign finding(s).
== END 2024-05-08 09:49 ==
PROVIDERS: PCP Family Medicine; Visit Provider Surgery
DX: C50.912 Malignant neoplasm of unspecified site of left female breast (principal); R92.2 Inconclusive mammogram
CPT/HCPCS: 77062; 77066; G0279

== ENCOUNTER 2024-05-16 11:12 | Outpatient (CLI) | payer MEDICARE, SELFPAY ==
[2024-05-16 11:46] LABS: Appearance Urine Clear (Clear); Bacteria Urine None Seen /hpf; Bilirubin Urine Negative (Negative); Blood Urine Negative (Negative); Color Urine Yellow (Yellow); Glucose Urine UA Negative (Negative); Ketones Urine Negative (Negative); Leukocyte Esterase Ur 1+ LEU/UL (Negative); Nitrate Urine Negative (Negative); Non Pathogenic Casts 0-2; Protein Urine Negative (Negative); RBC Urine 0-2 /hpf (0-2); Specific Grav Ur 1.012 (1.001-1.035); Squamous Epithelial Cell Urine None Seen /hpf (Few); Urobilinogen Urine 0.2 mg/dL (<2.0); pH Urine 5.5 (5.0-9.0)
[2024-05-16 11:47] LABS: Add Urine Microscopic? YES
== END 2024-05-16 11:13 | disposition home or self-care (01) ==
PROVIDERS: PCP Family Medicine; Visit Provider Physician Assistant
DX: R35.0 Frequency of micturition (principal)
CPT/HCPCS: 81001; 87086; 87088

== ENCOUNTER 2024-06-28 12:53 | Outpatient (CLI) | payer MEDICARE, SELFPAY ==
[2024-06-28 13:17] LABS: Basophils Absolute Auto 0.1 K/mm3 (0.0-0.1); Basophils Percent Auto 1.2 % (0.2-1.2); Eosinophils Absolute Auto 0.4 K/mm3 (0-0.3); Eosinophils Percent Auto 7.4 % (0-4.4); Hematocrit 32.5 % (37.0-47.0); Hemoglobin 10.5 g/dL (12.0-15.0); Immature Granulocyte Absolute 0.01 K/mm3 (0.00-0.031); Immature Granulocyte Percent A 0.2 % (0-0.5); Lymphocytes Absolute Auto 1.03 K/mm3 (0.9-3.2); Lymphocytes Percent Auto 21.2 % (18.3-44.2); Mean Corpuscular HGB Conc 32.3 g/dl (32-36); Mean Corpuscular Hemoglobin 30.6 pg (26-34); Mean Corpuscular Volume 94.8 fl (80-100); Mean Platelet Volume 10.4 fl (7.4-10.4); Monocytes Absolute Auto 0.4 K/mm3 (0.1-0.6); Monocytes Percent Auto 7.8 % (2.6-8.5); Neutrophils Percent Auto 62.2 % (45.5-73.1); Platelet Count Result 208 k/mm3 (150-375); Red Blood Count 3.43 M/mm3 (4.2-5.4); Red Cell Distribution Width 14.1 % (11.5-14.5); White Blood Count 4.9 K/mm3 (4.5-10.0)
[2024-06-28 13:46] LABS: Iron 52 ug/dL (37-170)
[2024-06-28 13:55] LABS: Percent Iron Saturation 15 % (20-50)
[2024-06-28 14:07] LABS: Alanine Aminotransferase 16 U/L (6-35); Albumin Level 4.2 g/dL (3.5-5.1); Alkaline Phosphatase 50 U/L (38-126); Anion Gap 8 mmol/L (4-12); Aspartate Amino Transferase 25 U/L (14-36); Bilirubin,Total 0.3 mg/dL (0.2-1.3); Blood Urea Nitrogen 22 mg/dL (7-17); Calcium 9.5 mg/dL (8.4-10.2); Carbon Dioxide 26 mmol/L (22-30); Chloride 104 mmol/L (98-107); Estimated Glomerular Filt Rate > 60; Glucose 93 mg/dL (65-110); Potassium 4.2 mmol/L (3.4-5.0); Sodium 138 mmol/L (137-145)
[2024-06-28 14:21] LABS: Ferritin 9.24 ng/mL (11.1-264)
[2024-06-28 15:14] LABS: Folic Acid 11.8 ng/mL (2.76->20)
[2024-06-29 09:23] LABS: CA 15-3 <5 U/mL (<32)
== END 2024-06-28 12:54 | disposition home or self-care (01) ==
LOC: ANHLAB 12:56
PROVIDERS: PCP Family Medicine; Visit Provider Internal Medicine Hematology & Oncology
DX: C50.912 Malignant neoplasm of unspecified site of left female breast (principal); Z17.0 Estrogen receptor positive status [ER+]
CPT/HCPCS: 36415; 80053; 82607; 82728; 82746; 83540; 83550; 85025; 86300

== ENCOUNTER 2024-08-14 14:49 | Outpatient (CLI) | payer MEDICARE, SELFPAY ==
[2024-08-14 15:37] LABS: Basophils Absolute Auto 0.1 K/mm3 (0.0-0.1); Basophils Percent Auto 1.2 % (0.2-1.2); Eosinophils Absolute Auto 0.3 K/mm3 (0-0.3); Eosinophils Percent Auto 5.7 % (0-4.4); Hematocrit 33.2 % (37.0-47.0); Hemoglobin 10.2 g/dL (12.0-15.0); Immature Granulocyte Absolute 0.02 K/mm3 (0.00-0.031); Immature Granulocyte Percent A 0.4 % (0-0.5); Lymphocytes Absolute Auto 1.15 K/mm3 (0.9-3.2); Lymphocytes Percent Auto 20.5 % (18.3-44.2); Mean Corpuscular HGB Conc 30.7 g/dl (32-36); Mean Corpuscular Hemoglobin 29.4 pg (26-34); Mean Corpuscular Volume 95.7 fl (80-100); Mean Platelet Volume 10.8 fl (7.4-10.4); Monocytes Absolute Auto 0.4 K/mm3 (0.1-0.6); Monocytes Percent Auto 7.7 % (2.6-8.5); Neutrophils Absolute Auto 3.6 K/mm3 (1.3-6.7); Neutrophils Percent Auto 64.5 % (45.5-73.1); Platelet Count Result 221 k/mm3 (150-375); Red Blood Count 3.47 M/mm3 (4.2-5.4); Red Cell Distribution Width 14.6 % (11.5-14.5); White Blood Count 5.6 K/mm3 (4.5-10.0)
[2024-08-14 15:55] LABS: Alanine Aminotransferase 14 U/L (6-35); Albumin Level 4.4 g/dL (3.5-5.1); Anion Gap 9 mmol/L (4-12); Aspartate Amino Transferase 25 U/L (14-36); Bilirubin,Total 0.4 mg/dL (0.2-1.3); Blood Urea Nitrogen 21 mg/dL (7-17); Calcium 9.5 mg/dL (8.4-10.2); Carbon Dioxide 25 mmol/L (22-30); Chloride 104 mmol/L (98-107); Estimated Glomerular Filt Rate 60; Glucose 86 mg/dL (65-110); Potassium 3.8 mmol/L (3.4-5.0); Sodium 138 mmol/L (137-145)
[2024-08-14 17:17] LABS: Alkaline Phosphatase 57 U/L (38-126)
[2024-08-17 00:53] LABS: TSH QUEST 1.21 mIU/L (0.40-4.50)
== END 2024-08-14 14:50 | disposition home or self-care (01) ==
LOC: ANHLAB 14:51
PROVIDERS: PCP Family Medicine; Visit Provider Nurse Practitioner Adult Health
DX: R53.83 Other fatigue (principal)
CPT/HCPCS: 36415; 80053; 84443; 85025; 86376

== ENCOUNTER 2024-09-27 16:16 | Emergency (ER) | payer MEDICARE, SELFPAY ==
--- NOTE | 2024-09-27 16:17 | PC.NURSE ---
pt left to be seen at another hospital d/t wait time.
== END 2024-09-27 17:07 | disposition left against medical advice (07) ==
PROVIDERS: PCP Family Medicine
DX: Z53.21 Procedure and treatment not carried out due to patient leaving prior to being seen by health care provider (principal)
CPT/HCPCS: 99199

== ENCOUNTER 2024-10-01 11:31 | Outpatient (CLI) | payer MEDICARE, SELFPAY ==
[2024-10-02 17:13] LABS: ANA Cascade Screen NEGATIVE (NEGATIVE)
== END 2024-10-01 11:32 | disposition home or self-care (01) ==
LOC: ANHLAB 11:34
PROVIDERS: PCP Family Medicine; Visit Provider Physician Assistant
DX: M25.50 Pain in unspecified joint (principal)
CPT/HCPCS: 36415; 86038; 86225; 86235; 86364

== ENCOUNTER 2024-10-08 11:02 | Outpatient (CLI) | payer MEDICARE, SELFPAY ==
[2024-10-08 12:20] LABS: Basophils Absolute Auto 0.1 K/mm3 (0.0-0.1); Basophils Percent Auto 1.3 % (0.2-1.2); Eosinophils Absolute Auto 0.3 K/mm3 (0-0.3); Eosinophils Percent Auto 5.2 % (0-4.4); Hematocrit 35.1 % (37.0-47.0); Hemoglobin 10.9 g/dL (12.0-15.0); Immature Granulocyte Absolute 0.02 K/mm3 (0.00-0.031); Immature Granulocyte Percent A 0.4 % (0-0.5); Lymphocytes Absolute Auto 1.09 K/mm3 (0.9-3.2); Lymphocytes Percent Auto 22.9 % (18.3-44.2); Mean Corpuscular HGB Conc 31.1 g/dl (32-36); Mean Corpuscular Volume 93.4 fl (80-100); Mean Platelet Volume 10.4 fl (7.4-10.4); Monocytes Absolute Auto 0.4 K/mm3 (0.1-0.6); Monocytes Percent Auto 8.8 % (2.6-8.5); Neutrophils Absolute Auto 2.9 K/mm3 (1.3-6.7); Neutrophils Percent Auto 61.4 % (45.5-73.1); Platelet Count Result 248 k/mm3 (150-375); Red Blood Count 3.76 M/mm3 (4.2-5.4); Red Cell Distribution Width 15.4 % (11.5-14.5); White Blood Count 4.8 K/mm3 (4.5-10.0)
[2024-10-08 12:33] LABS: Anion Gap 4 mmol/L (4-12); Blood Urea Nitrogen 18 mg/dL (7-17); Calcium 9.3 mg/dL (8.4-10.2); Carbon Dioxide 29 mmol/L (22-30); Chloride 104 mmol/L (98-107); Estimated Glomerular Filt Rate > 60; Glucose 97 mg/dL (65-110); Potassium 4.2 mmol/L (3.4-5.0); Sodium 137 mmol/L (137-145)
[2024-10-08 12:49] LABS: Iron 53 ug/dL (37-170)
[2024-10-08 12:58] LABS: Percent Iron Saturation 14 % (20-50)
[2024-10-08 13:26] LABS: Ferritin 8.46 ng/mL (11.1-264)
[2024-10-08 13:42] LABS: Folic Acid 7.8 ng/mL (2.76->20)
[2024-10-10 12:09] LABS: CA 15-3 <5 U/mL (<32)
== END 2024-10-08 11:03 | disposition home or self-care (01) ==
PROVIDERS: PCP Physician Assistant; Referring Provider Physician Assistant; Visit Provider Internal Medicine Hematology & Oncology
DX: D64.9 Anemia, unspecified (principal); C50.912 Malignant neoplasm of unspecified site of left female breast; Z17.0 Estrogen receptor positive status [ER+]
CPT/HCPCS: 36415; 80048; 82607; 82728; 82746; 83540; 83550; 85025; 86300

== ENCOUNTER 2024-10-29 10:36 | Outpatient (CLI) | payer MEDICARE, SELFPAY ==
[2024-10-29 12:46] LABS: Creatine Kinase 33 U/L (30-135)
[2024-11-03 23:14] LABS: Acetylcholine Rec Block Ab 58 (<15)
[2024-11-05 02:04] LABS: Acetyl Rec Binding Ab 25.68 nmol/L
== END 2024-10-29 10:37 | disposition home or self-care (01) ==
LOC: ANHLAB 10:41
PROVIDERS: PCP Physician Assistant; Visit Provider Psychiatry & Neurology Neurology
DX: G70.00 Myasthenia gravis without (acute) exacerbation (principal)
CPT/HCPCS: 36415; 82550; 86041; 86042; 86043

== ENCOUNTER 2024-11-13 11:06 | Outpatient (CLI) | payer MEDICARE, SELFPAY ==
--- NOTE | ~2024-11-13 | CT_ITS ---
EXAMINATION:CT chest high resolution w con DATE: 11/13/2024 11:38 INDICATION: Myasthenia gravis without acute exacerbation. TECHNIQUE: Computed tomography (CT) of the chest was performed with 75 mL Omnipaque 350 intravenous c ontrast. Automated exposure control and iterative reconstruction technique were employed. The dose-le ngth product (DLP) was 163.02 mGy-cm. COMPARISON: Chest CT 04/07/2023 FINDINGS: There is mild scarring at the lung apices. There is mild atelectasis bilaterally. No pleura l effusion. Cardiomegaly is noted. No pericardial effusion. There is a small sliding hiatal hernia. T here are changes of cholecystectomy. There is severe thoracic spondylosis. There are changes of anter ior fusion procedure from T10 to T12 with plate and screws. IMPRESSION: 1. No thymic hyperplasia or thymoma. Reviewed, dictated and finalized at location A. HMALLOW MAKER
[2024-11-13 11:28] LABS: Estimated Glomerular Filt Rate 60
== END 2024-11-13 11:07 | disposition home or self-care (01) ==
LOC: MICIMG 11:07
PROVIDERS: PCP Physician Assistant; Visit Provider Psychiatry & Neurology Neurology
DX: G70.00 Myasthenia gravis without (acute) exacerbation (principal)
CPT/HCPCS: 71260; Q9967

== ENCOUNTER 2025-01-18 12:52 | Outpatient (CLI) | payer MEDICARE, SELFPAY ==
--- NOTE | ~2025-01-18 | MR_ITS ---
EXAMINATION: MR brain/brain stem wo con DATE: 01/18/2025 13:36 INDICATION: Personal history of other healed physical injury. TECHNIQUE: Magnetic resonance imaging (MRI) of the brain and brainstem was performed without intraven ous contrast. COMPARISON: Brain MRI 02/10/2023 FINDINGS: There are old infarcts in the cerebellum bilaterally. There is no intracranial hemorrhage, acute infarction, or abnormal intracranial mass lesion. There are scattered areas of nonspecific incr eased T2-weighted signal intensity in the cerebral white matter, which is within normal limits for th e patient's age. The ventricles are normal in size. The paranasal sinuses are clear. There are likely changes of ocular lens replacement surgeries. The mastoid air cells are normal. IMPRESSION: 1. Old infarcts in the cerebellum. Reviewed, dictated and finalized at location L.
--- NOTE | ~2025-01-18 | MR_ITS ---
EXAMINATION: MR lumbar spine wo con DATE: 01/18/2025 13:44 INDICATION: Spinal stenosis, lumbar region with neurogenic claudication. Low back pain. TECHNIQUE: Magnetic resonance imaging (MRI) of the lumbar spine was performed without intravenous con trast. COMPARISON: Lumbar spine MRI 06/12/2023 FINDINGS: There is 7 degrees levocurvature of lumbar spine. There is 4 mm retrolisthesis of L1 on L2. There are changes of anterior fusion procedure from T10 to T12. Vertebral body heights are normal. T here is severely decreased disc height at L1-L2, mildly decreased disc height at L3-L4, severely decr eased disc height at L4-L5, and moderately decreased disc height at L5-S1. The distal spinal cord sig nal intensity is normal. The conus medullaris is at T12-L1. The following disc levels are specificall y discussed: L1-L2: The disc is bulging. There is moderate bilateral facet joint osteoarthritis. There is mild rig ht and moderate left neural foraminal stenosis. There is mild central canal stenosis. L2-L3: The disc is bulging and has an annular fissure. There is moderate bilateral facet joint osteoa rthritis. There is mild bilateral neural foraminal stenosis. There is mild central canal stenosis. L3-L4: The disc is bulging. There is severe bilateral facet joint osteoarthritis. There is mild bilat eral neural foraminal stenosis. There is mild central canal stenosis. L4-L5: The disc is bulging and has an annular fissure. There is severe bilateral facet joint osteoart hritis. There is moderate right and mild left neural foraminal stenosis. There is mild central canal stenosis. There is posterior decompression. L5-S1: The disc is bulging and has an annular fissure. There is severe bilateral facet joint osteoart hritis. There is mild bilateral neural foraminal stenosis. There is mild central canal stenosis. IMPRESSION: 1. Severe lumbar spondylosis, stable from 06/12/2023. Reviewed, dictated and finalized at location L.
== END 2025-01-18 12:53 | disposition home or self-care (01) ==
LOC: MICIMG 12:53
PROVIDERS: PCP Physician Assistant; Visit Provider Psychiatry & Neurology Neurology
DX: M48.062 Spinal stenosis, lumbar region with neurogenic claudication (principal); Z87.828 Personal history of other (healed) physical injury and trauma; R51.9 Headache, unspecified; R27.0 Ataxia, unspecified; Z98.1 Arthrodesis status; M47.896 Other spondylosis, lumbar region
CPT/HCPCS: 70551; 72148

== ENCOUNTER 2025-02-12 09:27 | Outpatient (CLI) | payer MEDICARE, SELFPAY ==
[2025-02-12 10:15] LABS: Basophils Absolute Auto 0.1 K/mm3 (0.0-0.1); Basophils Percent Auto 0.7 % (0.2-1.2); Eosinophils Absolute Auto 0.1 K/mm3 (0-0.3); Eosinophils Percent Auto 1.4 % (0-4.4); Hematocrit 34.7 % (37.0-47.0); Hemoglobin 10.6 g/dL (12.0-15.0); Immature Granulocyte Absolute 0.06 K/mm3 (0.00-0.031); Immature Granulocyte Percent A 0.7 % (0-0.5); Lymphocytes Absolute Auto 1.83 K/mm3 (0.9-3.2); Mean Corpuscular HGB Conc 30.5 g/dl (32-36); Mean Corpuscular Volume 94.8 fl (80-100); Mean Platelet Volume 10.4 fl (7.4-10.4); Monocytes Absolute Auto 0.7 K/mm3 (0.1-0.6); Monocytes Percent Auto 8.8 % (2.6-8.5); Neutrophils Absolute Auto 5.5 K/mm3 (1.3-6.7); Neutrophils Percent Auto 66.4 % (45.5-73.1); Platelet Count Result 302 k/mm3 (150-375); Red Blood Count 3.66 M/mm3 (4.2-5.4); Red Cell Distribution Width 14.6 % (11.5-14.5); White Blood Count 8.3 K/mm3 (4.5-10.0)
--- OUTSIDE RECORDS SUMMARY | 2025-02-12 10:19 | XMS_ITS | Clinical Summary ---
Author Organization [facility] Address [address] [place] [address] Care Team Providers Care Casino Attendant Name Role Phone Iliana Gonzalez MD Primary Care Provider [phone] Allergies Active Allergy Reactions Criticality Noted Date Comments Morphine Rash Medium 10/30/2018 Medications aspirin (MARIPOSA CHEWABLE) 81 mg Tablet, Chewable Take by mouth. Activ e acetaminophen (TYLENOL) 500 mg tablet Take 1,000 mg by mouth. Active famotidine (PEPCID) 40 mg tablet Take 40 mg by mouth. Active fluticasone-ume clidinium-vilan terol (Trelegy Ellipta) 100-62.5-25 mcg Disk with Device Take 1 Puff by inhalation daily. Active fluticasone furoate-vilante roL (BREO ELLIPTA) 100-25 mcg/dose Disk with Device Take 1 Puff by inhalation daily. Active levothyroxine 100 mcg tablet Take 100 mcg by mouth. Active [id number] -Lmfolate-algal 27 mg iron-1.13 mg-581.92 mg Capsule Take by mouth. Activ e gabapentin (NEURONTIN) 100 mg capsule Take 200 mg by mouth 3 times daily. Active anastrozole (ARIMIDEX) 1 mg tablet Take 1 Tablet (1 mg) by mouth daily. 90 Tablet 2 4 Active vibegron (Gemtesa) 75 mg Tablet Take by mouth. Activ e traZODone (DESYREL) 50 mg tablet TAKE 1/2 TABLET BY MOUTH EVERY DAY AT BEDTIME NEEDED FOR INSOMNIA 4 Active ferrous sulfate 325 mg (65 mg iron) tablet Take by mouth daily with breakfast. Talking a time release over the counter iron supplement Active cyanocobalamin (VITAMIN B-12) 500 mcg tablet Take 500 mcg by mouth daily. Active albuterol sulfate HFA 90 mcg/actuation aerosol inhaler INHALE 2 PUFFS BY MOUTH FOUR TIMES DAILY NEEDED FOR SHORTNESS OF BREATH OR WHEEZING Active Eliquis 2.5 mg tablet TAKE 1 TABLET(2.5 MG) BY MOUTH TWICE DAILY 60 Tablet 3 Active Active Problems No known active problems Encounters Date Type Department Care Team Description 12/26/2024 External Device Data [facility]STRACTION Provider, Abstract 12/05/2024 External Device Data [facility] Provider, Abstract 11/29/2024 External Device Data [facility]STRA[facility] Provider, Abstract from Last 3 Months Family History Medical History Relation Name Comments Diabetes Brother 1 Heart Disease Brother 1 Kidney Cancer Brother 1 Diabetes Brother 2 Diabetes Brother 3 Heart Disease Mother Colon Cancer Sister 2 Relation Name Status Comments Brother 1 Alive Brother 2 Brother 3 Brother 4 Alive Daughter Alive Father Mother Sister 1 Alive Sister 2 Son Alive Social History Tobacco Use Types Packs/Day Years Used Date Smoking Tobacco: Never Smokeless Tobacco: Never Tobacco Cessation:Counseling Given: Not Answered Alcohol Use Standard Drinks/Week Comments Never 0 (1 standard drink = 0.6 oz pur e alcohol) Comments Unknown Sex and Gender Information Value Date Recorded Sex Assigned at Not on file Legal Sex Female 3:16 AM GENERAL LOT ATTENDANT Gender Identity Not on file Sexual Orientation Not on file Last Filed Vital Signs Vital Sign Reading Time Taken Comments Blood Pressure 127/77 10/12/2024 12:32 PM GENERAL LOT ATTENDANT Pulse 84 10/12/2024 12:32 PM GENERAL LOT ATTENDANT Temperature 36.3 C (97.3 F) 10/12/2024 12:32 PM GENERAL LOT ATTENDANT Respiratory Rate 16 10/12/2024 12:32 PM GENERAL LOT ATTENDANT Oxygen Saturation 91% 10/12/2024 12:32 PM GENERAL LOT ATTENDANT Inhaled Oxygen Concentration - - Weight 78.5 kg (173 lb) 10/12/2024 12:32 PM GENERAL LOT ATTENDANT Height 167.6 cm (5' 6 ) 10/10/2023 11:24 AM GENERAL LOT ATTENDANT Body Mass Index 27.92 10/10/2023 11:24 AM GENERAL LOT ATTENDANT Plan of Treatment Upcoming Encounters Date Type Department Care Team (Late st Contact Info) Description 02/15/2025 11:30 AM CDT Office Visit [facility] - [address] [facility] [address] [place] [address] Carlos Desouza MD [address] [facility] [address] [place] [address] Health Maintenance Due Date Last Done Comments DTAP/TDAP/TD VACCINES (1 - Tdap) 1960 PNEUMOCOCCAL VACCINE 50+ YEA RS (1 of 2 - PCV) 1960 ZOSTER VACCINE (1 of 2) 1991 RSV VACCINE (60+ or ) (1 - 1-dose 75+ series) 2016 INFLUENZA VACCINE (#1) 2024 COLORECTAL SCREENING Discontinued 12/21/2019, 12/21/19 20 Colorectal Cancer Screening Discontinued OSTEOPOROSIS SCREENING Completed 11/23/2023 FIT-DNA Q 3 years Discontinued FIT/FOBT Q 1 year Discontinued Flex Sig/CT Colonography Q 5 years Discontinued Insurance GENERIC PAYOR MEDICARE PART A AND B [address] [id number] Care Teams Casino Attendant Relationship Specialty Start Date End Date Iliana Gonzalez MD [address] [facility] [address] [place] [address] PCP - General Family Practice 10/10/23
--- OUTSIDE RECORDS SUMMARY | 2025-02-12 10:19 | XMS_ITS | Encounter Summary ---
Author Organization [facility] Address [address] [place] [address] Phone Care Team Providers Care Digital Performance Analyst Name Role Phone Iliana Gonzalez MD Primary Care Provider Rm Broderick MD Primary Care Provider Encounter Details Date Type Department Care Team (Late st Contact Info) Description 01/03/2018 Orders Only [facility] ProviderSharif MD [address] [place] [id number] Social History Tobacco Use Types Packs/Day Years Used Date Smoking Tobacco: Never Assessed Alcohol Use Standard Drinks/Week Comments No 0 (1 standard drink = 0.6 oz pur e alcohol) Comments Unknown Sex and Gender Information Value Date Recorded Sex Assigned at Not on file Legal Sex Female 1:48 AM SCIENCE AND OPERATIONS OFFICER Gender Identity Not on file Sexual Orientation Not on file documented as of this encounter Plan of Treatment Not on file documented as of this encounter Procedures Procedure Name Priority Date/Time Associated Diagnosis Comments CYTOLOGY 01/03/2018 12:00 AM SCIENCE AND OPERATIONS OFFICER documented in this encounter Results * CYTOLOGY (01/03/2018 12:00 AM SCIENCE AND OPERATIONS OFFICER) Narrative 01/03/2018 12:00 AM SCIENCE AND OPERATIONS OFFICER Ordered by an unspecified provider. Historical Provider LAB CYTOLOGY ORDERABLES F inal Result documented in this encounter Visit Diagnoses Not on filedocumented in this encounter Additional Health Concerns Infection Onset Date Last Indicated Resolved Time COVID: Suspected 09/27/2024 09/27/2024 09/27/2024 6:23 PM SCIENCE AND OPERATIONS OFFICER documented as of this encounter Care Teams Digital Performance Analyst Relationship Specialty Start Date End Date Iliana Gonzalez MD [address] [place] [address] PCP - General 03/30/17 12/17/24 Rm Broderick MD [address] [place] [address] PCP - General Family Medicine 12/18/24 documented as of this encounter
--- OUTSIDE RECORDS SUMMARY | 2025-02-12 10:19 | XMS_ITS | Encounter Summary ---
Author Organization [facility] Address [address] [place] [address] Care Team Providers Care Figure Model Name Role Phone Iliana Gonzalez MD Primary Care Provider Rm Broderick MD Primary Care Provider Reason for Visit * Reason Onset Date Comments Pre-Surgical Call 01/20/2022 Encounter Details Date Type Department Care Team (Late st Contact Info) Description 01/20/2022 Telephone [facility] [address] [facility] [address] [place] [address] Gurpreet Camp MD [address] [facility] [address] [place] [address] Pre-Surgical Call Social History Tobacco Use Types Packs/Day Years Used Date Smoking Tobacco: Never Smokeless Tobacco: Never Alcohol Use Standard Drinks/Week Comments No 0 (1 standard drink = 0.6 oz pur e alcohol) AUDIT-C Answer Date Recorded Q1: How often do you have a drink containing alc ohol? Never 10/09/2021 Average Number of Drinks Not on file 021 Q3: How often do you have si x or more drinks on one occasion? Never 10/09/2021 Comments No Sex and Gender Information Value Date Recorded Sex Assigned at Not on file Legal Sex Female 1:48 AM PREFITTER DOORS Gender Identity Not on file Sexual Orientation Not on file documented as of this encounter Plan of Treatment Not on file documented as of this encounter Goals Goal Patient Goal Type Associated Problems Recent Progress Patient-Stated? Author CCM Chronic Pain Care Plan Chronic Care Management On track(2020 1:08 PM PREFITTER DOORS) Joi Navarrete, RN Note: Problem: Chronic Pain Goals: 1. Minimize further functional decline 2. Maximize quality of life 3. Control pain Strategies: - Activity/exercise program recommendation - Conservative stepwise pain medicine strategy with multi-disciplinary approach - Recommend healthy lifestyle strategies and compensatory methods as needed documented as of this encounter Visit Diagnoses Not on filedocumented in this encounter Additional Health Concerns Infection Onset Date Last Indicated Resolved Time COVID: Suspected 09/27/2024 09/27/2024 09/27/2024 6:23 PM PREFITTER DOORS documented as of this encounter Care Teams Figure Model Relationship Specialty Start Date End Date Iliana Gonzalez MD [address] [place] [address] PCP - General 03/30/17 12/17/24 Rm Broderick MD [address] [place] [address] PCP - General Family Medicine 12/18/24 documented as of this encounter
--- OUTSIDE RECORDS SUMMARY | 2025-02-12 10:19 | XMS_ITS | Referral Summary ---
Author Organization [facility] Address [address] [place] [address] Care Team Providers Care Gospel Singer Name Role Phone Rm Broderick MD Primary Care Provider Encounters Date Type Department Care Team Description 01/16/2025 8:39 AM CDT - 01/16/2025 11:59 PM CDT Hospital Encounter [facility] Diag Imaging [facility] [place] [address] Acute left ankle pain Discharge Disposition: Discharge to home or self care 01/16/2025 9:00 AM CDT Office Visit [facility] [address] [facility] [address] [place] [phone] Rm Paredes DO Acute left ankle pain (Primary Dx); Other closed fracture of distal end of left fibula, initial encounter 12/27/2024 10:31 AM FILM ARCHIVIST - 12/27/2024 2:40 PM FILM ARCHIVIST Emergency [facility] Emergency Department [facility] [place] [address] Trey Diaz DO Right low back pain, unspecified chronicity, unspecified whether sciatica present (Primary Dx); Closed avulsion fracture of left ankle, initial encounter; Abnormal CT of the head Discharge Disposition: Discharge to home or self care 12/18/2024 11:00 AM FILM ARCHIVIST Office Visit [facility] Cardiology [address] [place] [address] Wilmar Kraus MD Chest pressure (Primary Dx) from Last 3 Months Allergies Active Allergy Reactions Criticality Noted Date Comments Hydromorphone Anaphylaxis,Shortnes s of breath,Vomiting High 12/27/2024 Meperidine Anaphylaxis High 12/27/2024 Morphine Shortness of breath, Itching,Rash,Chest tightness,Mental status changes High 10/30/2018 Medications aspirin 81 mg chewable tablet Take 1 tablet (81 mg total) by mouth daily Active acetaminophen (TYLENOL) 500 mg tablet Take 2 tablets (1,000 mg total) by mouth 3 (three) times a day as needed for pain Active [id number]- Lmfolate-algal 27 mg iron-1.13 mg-581.92 mg capsule Take 1 tablet by mouth daily Active albuterol HFA (PROVENTIL HFA,VENTOLIN HFA,PROAIR HFA) 90 mcg/actuation inhaler Inhale 2 puffs every 6 (six) hours as needed Active levothyroxine (SYNTHROID) 100 mcg tablet Take 1 tablet (100 mcg total) by mouth debubblizer before breakfast Active fluticasone-umec lidin-vilanter (Trelegy Ellipta) 100-62.5-25 mcg inhaler Inhale 1 puff daily Active Eliquis 2.5 mg tablet Take 1 tablet (2.5 mg total) by mouth 2 (two) times a day 4 Active gabapentin (NEURONTIN) 100 mg capsule Take 2 capsules (200 mg total) by mouth 3 (three) times a day as needed (Nerve Pain) Active anastrozole (ARIMIDEX) 1 mg tablet Take 1 tablet (1 mg total) by mouth daily 4 Active ferrous sulfate 325 mg (65 mg of elemental iron) tabletIndication s:Iron Deficiency Anemia Take 1 tablet (325 mg total) by mouth 2 (two) times a day with meals Active cyanocobalamin (Vitamin B-12) 500 mcg tabletIndication s:Prevention of Vitamin B12 Deficiency Take 1 tablet (500 mcg total) by mouth daily Active hydrOXYzine (VistariL) 25 mg capsule Take 1 capsule (25 mg total) by mouth 3 (three) times a day as needed for anxiety 30 capsule 4 Active omeprazole (PriLOSEC) 20 mg capsule Take 1 capsule (20 mg total) by mouth daily before breakfast Active pyRIDostigmine (MESTINON) 60 mg tablet Take 1 tablet (60 mg total) by mouth 3 (three) times a day 4 Active vibegron (Gemtesa) 75 mg tablet Take 75 mg by mouth daily Sample from doctors office Active predniSONE (DELTASONE) 20 mg tablet Take 2 tablets (40 mg) by mouth daily 5 Active cholecalciferol (VITAMIN D-3) 5,000 unit tablet Take 3 tablets (15,000 Units total) by mouth once a week saturdays Active docusate sodium (COLACE) 100 mg capsuleIndicatio ns:constipation Take 1 capsule (100 mg total) by mouth daily Active Lactobacillus acidophilus capsule Take 1 capsule by mouth daily Active traZODone (DESYREL) 50 mg tablet TAKE 1/2 TABLET BY MOUTH EVERY DAY AT BEDTIME NEEDED FOR INSOMNIA 4 Active Active Problems Problem Noted Date Diagnosed Date Chest pressure 12/18/2024 History of pulmonary embolism 09/09/2023 Preoperative cardiovascular examination 02/19/20 Symptomatic bradycardia 02/18/2023 PSVT (paroxysmal supraventricular tachycardia) 0 04/09/2022 Asthma 04/09/2022 Hypothyroidism (acquired) 04/09/2022 Chronic fatigue 04/09/2022 Left atrial enlargement 04/09/2022 Nonrheumatic mitral (valve) insufficiency 2021 Pulmonary hypertension 04/09/2022 Shortness of breath 04/09/2022 Social History Tobacco Use Types Packs/Day Years Used Date Smoking Tobacco: Never Smokeless Tobacco: Never Tobacco Cessation:Counseling Given: Not Answered Alcohol Use Standard Drinks/Week Comments No 0 (1 standard drink = 0.6 oz pur e alcohol) AUDIT-C Answer Date Recorded Q1: How often do you have a drink containing alc ohol? Never 10/09/2021 Average Number of Drinks Not on file 021 Q3: How often do you have si x or more drinks on one occasion? Never 10/09/2021 Personal Safety Answer Date Recorded Have you ever been in or are you currently in a harmful physical or emotional relationship or is someone making you feel afraid or unsafe? Denies 12/27/2024 Comments No Sex and Gender Information Value Date Recorded Sex Assigned at Not on file Legal Sex Female 1:48 AM FILM ARCHIVIST Gender Identity Not on file Sexual Orientation Not on file Last Filed Vital Signs Vital Sign Reading Time Taken Comments Blood Pressure 136/55 12/27/2024 1:00 PM FILM ARCHIVIST Pulse 73 12/27/2024 1:00 PM FILM ARCHIVIST Temperature 36.8 C (98.2 F) 12/27/2024 10:28 AM FILM ARCHIVIST Respiratory Rate 19 12/27/2024 1:00 PM FILM ARCHIVIST Oxygen Saturation 99% 12/27/2024 1:00 PM FILM ARCHIVIST Inhaled Oxygen Concentration - - Weight 78 kg (172 lb) 01/16/2025 9:06 AM CDT Height 170.2 cm (5' 7 ) 01/16/2025 9:06 AM CDT Body Mass Index 26.94 01/16/2025 9:06 AM CDT Plan of Treatment Not on file Goals Goal Patient Goal Type Associated Problems Recent Progress Patient-Stated? Author CCM Chronic Pain Care Plan Chronic Care Management On track(2020 1:08 PM FILM ARCHIVIST) No Joi Booker, RN Note: Problem: Chronic Pain Goals: 1. Minimize further functional decline 2. Maximize quality of life 3. Control pain Strategies: - Activity/exercise program recommendation - Conservative stepwise pain medicine strategy with multi-disciplinary approach - Recommend healthy lifestyle strategies and compensatory methods as needed Medical Devices Implanted Type Area Conveyor Feeder Offbearer Device Identifier Shelf Expiration Date Model / Serial / Lot Rt Knee Hip B/L Hips Hip Procedures Procedure Name Priority Date/Time Associated Diagnosis Comments XR ANKLE LEFT 3 OR MORE VIEWS Schedule Routine, Read Routine (OP Routine) 01/16/2025 8:55 AM CDT Acute left ankle pain TROPONIN T HIGH-SENSITIVITY 2-HOUR Timed 12/27/2024 1:[address] LUMBAR SPINE WO CONTRAST ED 12/27/2024 12:17 PM FILM ARCHIVIST EGFR STAT 12/27/2024 11:26 AM FILM ARCHIVIST DIFFERENTIAL AUTO STAT 12/27/2024 11:26 AM FILM ARCHIVIST TROPONIN T HIGH-SENSITIVITY SERIES (BASELINE, 2HR, 4HR, 6HR) STAT 12/27/2024 11:26 AM FILM ARCHIVIST COMPREHENSIVE METABOLIC PANEL STAT 12/27/2024 11:26 AM FILM ARCHIVIST CBC WITH AUTO DIFFERENTIAL STAT 12/27/2024 11:26 AM FILM ARCHIVIST ECG 12-LEAD STAT 12/27/2024 11:01 AM FILM ARCHIVIST XR CHEST 1 VIEW ED 12/27/2024 10:51 AM FILM ARCHIVIST XR SPINE LUMBAR 2 OR 3 VIEWS ED 12/27/2024 10:51 AM FILM ARCHIVIST XR SPINE THORACIC 3 VIEWS ED 12/27/2024 10:51 AM FILM ARCHIVIST XR HIP RIGHT W PELVIS 2 OR 3 VIEWS ED 12/27/2024 10:51 AM FILM ARCHIVIST XR ANKLE LEFT 3 OR MORE VIEWS ED 12/27/2024 10:[address] HEAD WO CONTRAST ED 12/27/2024 10:34 AM FILM ARCHIVIST ELECTROCARDIOGRAM REPORT Routine 025 8:31 AM FILM ARCHIVIST Chest pressure from Last 3 Months Results * XR Ankle Left 3 or More Views (01/16/2025 8:55 AM CDT) Anatomical Region Laterality Modality Lower Extremities, Ankle Left Compute d Radiography 01/19/2025 7:16 PM CDT Narrative 01/19/2025 7:18 PM CDT EXAM DESCRIPTION: XR ANKLE LEFT 3 OR MORE VIEWS REASON FOR STUDY: pain Pt sts: fall X November 2024, left ankle pain, follow up, denies surgery TECHNIQUE: There are 3 radiographic view(s) of the left ankle . COMPARISON: 12/27/2024 FINDINGS: Normal mineralization. No acute fracture or dislocation. Talar dome is smooth. Ankle mortise is intact. Prominent plantar calcaneal spur. Soft tissues are unremarkable. Tiny ossification projecting between the lateral process of the talus and distal fibula is again seen. Findings could reflect heterotopic ossification or old avulsion injury. Right ankle is included in the weight-bearing view of the left with no focal osseous abnormality. IMPRESSION: No acute fracture. Again seen is a thin linear ossification projecting between the lateral process of the talus and distal fibula. This could reflect heterotopic ossification or sequela of avulsion. No change from prior. THIS IS AN ELECTRONICALLY VERIFIED FINAL REPORT 01/19/2025 7:18 PM - Electronically signed by Martin GALAN T: Report ID: [id number] Reading Location: [id number] Procedure Note Martin Hope MD - 01/19/2025 EXAM DESCRIPTION: XR ANKLE LEFT 3 OR MORE VIEWS REASON FOR STUDY: pain Pt sts: fall X November 2024, left ankle pain, follow up, denies surgery TECHNIQUE: There are 3 radiographic view(s) of the left ankle . COMPARISON: 12/27/2024 FINDINGS: Normal mineralization. No acute fracture or dislocation. Talar dome is smooth. Ankle mortise is intact. Prominent plantar calcanealspur. Soft tissues are unremarkable. Tiny ossification projecting between the lateral process of the talus and distal fibula is again seen. Findings could reflect heterotopicossification or old avulsion injury. Right ankle is included in the weight-bearing view of the left with nofocal osseous abnormality. IMPRESSION: No acute fracture. Again seen is a thin linear ossification projecting between the lateral process of the talus and distal fibula. This could reflect heterotopic ossification or sequela of avulsion. No change from prior. THIS IS AN ELECTRONICALLY VERIFIED FINAL REPORT 01/19/2025 7:18 PM - Electronically signed by Martin GALAN T: Report ID: [id number] Reading Location: [id number] Rm Paredes DO IMG XR PROCEDURES Final Result * (ABNORMAL) Troponin T high-sensitivity 2-hour (12/27/2024 1:19 PM FILM ARCHIVIST) Trop T hs 26(H) <=14 ng/L Comment: Interpretive Data For further hscTnT resources including the diagnostic algorithm and an aid in interpretation, copy and paste this link: https://nrl.testcatalog.org/show/hsTrop Current Interpretive Data last revised 2020. Testing performed by: [address] [address] Trop T hs delta 3 ng/L RENAN SMALL[place]OD Comment:Testing performed by : [address] [address] Trop T hs interp Insignificant RENAN SMALL[place]OD Comment:Testing performed by : [address] [address] Blood 12/27/2024 1:19 PM FILM ARCHIVIST 12/27/2024 1:22 PM FILM ARCHIVIST Trey Diaz DO LAB BLOOD ORDERABLES Final Result [facility] [address] [facility] Department [place] [address] * CT Lumbar Spine WO Contrast (12/27/2024 12:17 PM FILM ARCHIVIST) Anatomical Region Laterality Modality Spine N/A Computed Tomogra phy 12/27/2024 12:4 3 PM FILM ARCHIVIST Narrative 12/27/2024 12:49 PM FILM ARCHIVIST EXAM DESCRIPTION: CT LUMBAR SPINE WO CONTRAST REASON FOR STUDY: Fall with acute posterior head pain, left ankle pain, right hip and pelvis pain, and thoracic spine pain extending downward. No provided focal neurologic deficits. History of myasthenia gravis. No provided surgical history. Patient anticoagulated on Eliquis. TECHNIQUE: Axial images acquired through the lumbar spine without intravenous contrast. Reconstructed coronal and sagittal MPR images reviewed. All images stored on PACS. Automated exposure control was used as a dose optimization technique for this examination. COMPARISON: Relevant portions of thoracic spine/lumbar spine/pelvis/right hip radiographs performed shortly prior to this study. FINDINGS: SEGMENTATION: No lumbosacral transitional anatomy. The lowest fully formed intervertebral disc level is labeled L5-S1. ALIGNMENT: Mild levoscoliosis of the lumbar spine centered at L4-5; mild retrolisthesis L1 on L2. VERTEBRAE: Diffuse demineralization of the osseous architecture. No acute fracture. Vertebral body heights maintained. Spondylosis. DISC HEIGHT: Multilevel variable vacuum disc phenomenon loss of intervertebral disc height. HARDWARE: None in the lumbar spine, noting limited incidental visualization of left lateral instrumented spinal fusion of the lower thoracic spine. Correlate with operative details. Limited visualization of bilateral total hip arthroplasties on cascade operator view. INDIVIDUAL DISC LEVELS: Constellation of spondylolisthesis, annular disc bulges and/or focal herniations, facet arthropathy, and ligamentum flavum thickening produces multilevel variable spinal canal stenosis and neural foraminal stenosis. VISUALIZED RIBS: No acute fracture. SOFT TISSUES: No acute abnormality. Calcific atherosclerosis of the aorta and branch vasculature. Cholecystectomy. OTHER: No other significant finding. IMPRESSION: No acute fracture of the lumbar spine with constellation of levoscoliosis, spondylolisthesis, spondylosis, and degenerative disc disease. THIS IS AN ELECTRONICALLY VERIFIED FINAL REPORT 12/27/2024 12:49 PM - Electronically signed by Rm Mann M.D. GISELLA: GISELLA Report ID: [id number] Reading Location: [place] [address] Procedure Note Rm Mann MD - 12/27/2024 EXAM DESCRIPTION: CT LUMBAR SPINE WO CONTRAST REASON FOR STUDY: Fall with acute posterior head pain, left ankle pain,right hip and pelvis pain, and thoracic spine pain extending downward. Noprovided focal neurologic deficits. History of myasthenia gravis. No provided surgical history. Patient anticoagulated on Eliquis. TECHNIQUE: Axial images acquired through the lumbar spine withoutintravenous contrast. Reconstructed coronal and sagittal MPR images reviewed. Allimages stored on PACS. Automated exposure control was used as a dose optimization technique forthis examination. COMPARISON: Relevant portions of thoracic spine/lumbarspine/pelvis/right hip radiographs performed shortly prior to this study. FINDINGS: SEGMENTATION: No lumbosacral transitional anatomy. The lowest fully formed intervertebral disc level is labeled L5-S1. ALIGNMENT: Mild levoscoliosis of the lumbar spine centered at L4-5; mild retrolisthesis L1 on L2. VERTEBRAE: Diffuse demineralization of the osseous architecture. Noacute fracture. Vertebral body heights maintained. Spondylosis. DISC HEIGHT: Multilevel variable vacuum disc phenomenon loss of intervertebral disc height. HARDWARE: None in the lumbar spine, noting limited incidentalvisualization of left lateral instrumented spinal fusion of the lower thoracic spine. Correlate with operative details. Limited visualization of bilateraltotal hip arthroplasties on cascade operator view. INDIVIDUAL DISC LEVELS: Constellation of spondylolisthesis, annular disc bulges and/or focal herniations, facet arthropathy, and ligamentum flavum thickening produces multilevel variable spinal canal stenosis and neural foraminal stenosis. VISUALIZED RIBS: No acute fracture. SOFT TISSUES: No acute abnormality. Calcific atherosclerosis of theaorta and branch vasculature. Cholecystectomy. OTHER: No other significant finding. IMPRESSION: No acute fracture of the lumbar spine with constellation of levoscoliosis, spondylolisthesis, spondylosis, and degenerative discdisease. THIS IS AN ELECTRONICALLY VERIFIED FINAL REPORT 12/27/2024 12:49 PM - Electronically signed by Rm Mann M.D. GISELLA: GISELLA Report ID: [id number] Reading Location: [place] [address] Trey Diaz DO IM CT PROCEDURES Final Res ult * (ABNORMAL) Troponin T high-sensitivity series (baseline, 2hr, 4hr, 6hr) (12/27/2024 11:26 AM FILM ARCHIVIST) Trop T hs 23(H) <=14 ng/L Comment: Interpretive Data For further hscTnT resources including the diagnostic algorithm and an aid in interpretation, copy and paste this link: https://nrl.testcatalog.org/show/hsTrop Current Interpretive Data last revised 2020. Testing performed by: [facility], [address] [place] [address]., [id number] Blood 12/27/2024 11:2 6 AM FILM ARCHIVIST 12/27/2024 11:34 AM FILM ARCHIVIST us Trey Diaz DO LAB BLOOD ORDERABLES Final Result [facility] [address] [employer] [address] * eGFR (12/27/2024 11:26 AM FILM ARCHIVIST) eGFR 60 >=60 mL/min/1. 73 m2 Comment: Interpretive Data Reference Interval Normal >/= 90 mL/min/1.73m2 Mildly decreased* 60 - 89 mL/min/1.73m2 Mildly to moderately decreased 45 - 59 mL/min/1.73m2 Moderately to severely decreased 30 - 44 mL/min/1.73m2 Severely decreased 15 - 29 mL/min/1.73m2 Kidney Failure < 15 mL/min/1.73m2 *Relative to young adult level Estimated glomerular filtration rate is determined by the 2020 CKD-EPI equation recommended by the National Kidney Foundation (A Unifying Approach to GFR Estimation: Recommendations of the NKF-ASK Task Force on Reassessing the Inclusion of Race in Diagnosing Kidney Disease, JASN 2020). The CKD-EPI equation should not be used for patients with unstable renal function and has not been validated in children and those over 70. Current interpretive data was last reviewed 2021. Testing performed by: [address] [address] Blood 12/27/2024 11:2 6 AM FILM ARCHIVIST 12/27/2024 11:34 AM FILM ARCHIVIST us Trey Diaz DO LAB BLOOD ORDERABLES Final Result [facility] [address] [place] [address] * (ABNORMAL) Differential, auto (12/27/2024 11:26 AM FILM ARCHIVIST) Neutrophil abs 6.7(H) 1.5 - 6.5 K/cumm Comment:Testing performed by : [address] [place]., [address] Imm gran abs 0.1 0.0 - 0.1 K/cumm CERNER Comment:Testing performed by : [address] [address] Lymphocyte abs 1.1 0.8 - 3.3 K/cumm CERNER Comment:Testing performed by : [address] [address] Monocyte abs 0.7 0.2 - 0.8 K/cumm [facility] Comment:Testing performed by : [address] [address] Eosinophil abs 0.1 0.0 - 0.5 K/cumm [facility] Comment:Testing performed by : [address] [address] Basophil abs 0.0 0.0 - 0.1 K/cumm [facility] Comment:Testing performed by : [address] [address] Neutrophil pct 78.1 % [facility] Comment: Interpretive Data Percent cell count reference ranges are not reported, since discordance with absolute values may lead to misinterpretation of CBC data. Current Interpretive Data was last revised on 2018. Testing performed by: [address] [address] Imm gran pct 0.8 % CERNER Comment: Interpretive Data Percent cell count reference ranges are not reported, since discordance with absolute values may lead to misinterpretation of CBC data. Current Interpretive Data was last revised on 2018. Testing performed by: [address] [address] Lymphocyte pct 12.3 % C[facility]ER Comment: Interpretive Data Percent cell count reference ranges are not reported, since discordance with absolute values may lead to misinterpretation of CBC data. Current Interpretive Data was last revised on 2018. Testing performed by: [address] [address] Monocyte pct 7.5 % CERNER Comment: Interpretive Data Percent cell count reference ranges are not reported, since discordance with absolute values may lead to misinterpretation of CBC data. Current Interpretive Data was last revised on 2018. Testing performed by: [address] [address] Eosinophil pct 1.0 % RENAN [place]OD Comment: Interpretive Data Percent cell count reference ranges are not reported, since discordance with absolute values may lead to misinterpretation of CBC data. Current Interpretive Data was last revised on 2018. Testing performed by: [address] [address] Basophil pct 0.3 % RENAN SMALL[place]OD Comment: Interpretive Data Percent cell count reference ranges are not reported, since discordance with absolute values may lead to misinterpretation of CBC data. Current Interpretive Data was last revised on 2018. Testing performed by: [address] [address] Blood 12/27/2024 11:2 6 AM FILM ARCHIVIST 12/27/2024 11:36 AM FILM ARCHIVIST Trey Diaz DO LAB BLOOD ORDERABLES Final Result [place] [id number] [facility] Department [place] [address] * (ABNORMAL) CBC with auto differential (12/27/2024 11:26 AM FILM ARCHIVIST) WBC 8.6 3.8 - 9.9 K/cumm Comment:Testing performed by : [address] [address] Hgb 12.1 11.9 - 15.5 g/dL RENA[facility] [place]OD Comment:Testing performed by : [address] [address] Hct 37.0 35.6 - 45.5 % RENAN SMALL[place]OD Comment:Testing performed by : [address] [address] Plt 226 150 - 400 K/cumm RENA[facility] [place] Comment:Testing performed by : [address] [address] MPV 10.2 9.1 - 12.3 fL RENAN [place]OD Comment:Testing performed by : [address] [address] RBC 4.01 3.90 - 5.20 M/cumm RENAN SMALL[place]OD Comment:Testing performed by : [address] [address] MCV 92.3 81.3 - 96.4 fL RENAN [place]OD Comment:Testing performed by : [address] [address] MCH 30.2 27.1 - 33.3 pg RENAN Comment:Testing performed by : [address] [address] MCHC 32.7 32.3 - 35.7 g/dL RENAN Comment:Testing performed by : [address] [address] RDW CV 16.3(H) 11.1 - 14.9 % RENAN Comment:Testing performed by : [address] [address] RDW SD 55.9(H) 35.7 - 48.1 fL RENAN Comment:Testing performed by : [address] [address] NRBC abs 0.00 0.00 - 0.01 K/cumm RENAN Comment:Testing performed by : [address] [address] Blood 12/27/2024 11:2 6 AM FILM ARCHIVIST 12/27/2024 11:36 AM FILM ARCHIVIST Trey Diaz DO LAB BLOOD ORDERABLES Final Result [facility] [address] [facility] Department [place] [address] * (ABNORMAL) Comprehensive metabolic panel (12/27/2024 11:26 AM FILM ARCHIVIST) Sodium 138 135 - 145 mmol/L Comment:Testing performed by : [address] [address] Potassium, pl 3.6 3.3 - 4.9 mmol/L RENAN Comment: Hemolyzed; Potassium value may be falsely elevated by as much as 1.0 mmol/L. Suggest redraw and reanalysis. Testing performed by: [address] [address] Chloride 102 97 - 110 mmol/L RENAN Comment:Testing performed by : [address], [place]., [address] CO2 27 22 - 32 mmol/L RENAN Comment:Testing performed by : [address], [place]., [address] Anion gap 9 2 - 15 mmol/L RENAN Comment:Testing performed by : [address], [place]., [address] BUN 17 6 - 25 mg/dL RENAN Comment:Testing performed by : [address], [place]., [address] Creatinine 0.94 0.60 - 1.10 mg/dL RENAN Comment:Testing performed by : [address] [address] Glucose 91 70 - 199 mg/dL RENAN Comment: Interpretive Data Fasting glucose >/= 126 mg/dl is diagnostic for diabetes. Fasting is defined as no caloric intake for at least 8 hours. Fasting glucose between 100 mg/dl to 125 mg/dl is diagnostic of prediabetes. In a patient with classic symptoms of hyperglycemia or hyperglycemic crisis, a random glucose >/= 200 mg/dl is diagnostic for diabetes. In the absence of unequivocal hyperglycemia, results should be confirmed by repeat testing. The classification and Diagnosis of Diabetes Diabetes Care 202; 46: S19-S40. Current interpretive data was last revised 2022. Testing performed by: [address] [address] Calcium 9.9 8.5 - 10.3 mg/dL RENAN Comment:Testing performed by : [address] [address] Bilirubin, total 0.3 0.1 - 1.2 mg/dL RENAN Comment:Testing performed by : [address], [place]., [address] Protein, pl 6.6 6.5 - 8.5 g/dL RENAN Comment:Testing performed by : [facility], [address] [place] [address]., [address] Albumin 3.9 3.5 - 5.0 g/dL RENAN Comment:Testing performed by : [address] [address] Alk phos 36(L) 40 - 130 Units/L RENAN Comment:Testing performed by : [address], [address] ALT 24 7 - 45 Units/L RENAN Comment:Testing performed by : [address] [address] AST 20 10 - 45 Units/L RENAN Comment: Hemolyzed; result may be falsely elevated Testing performed by: [address], [address] Blood 12/27/2024 11:2 6 AM FILM ARCHIVIST 12/27/2024 11:34 AM FILM ARCHIVIST Trey Diaz DO LAB BLOOD ORDERABLES Final Result [facility] [address] [facility] Department of Laboratories [place], [place] [id number] * ECG 12 lead (12/27/2024 11:01 AM FILM ARCHIVIST) Ventricular Rate EKG/Min 82 BPM [facility] Atrial Rate 82 BPM [facility] MT-Interval (MSEC) 126 ms [facility] QRS-Interval (MSEC) 86 ms [facility] QT-Interval (MSEC) 366 ms [facility] QTc 427 ms [facility] P Caspar 66 degrees [facility] R Caspar -7 degrees [facility] T Cas[place] 13 degrees [facility] Diagnosis Sinus rhythm with marked sinus arrhythmia with occasional Premature ventricular complexes Minimal voltage criteria for LVH, may be normal variant Borderline ECG Confirmed by JOSEFINA BERGMAN M.D. ([id number]) on 12/27/2024 1:45:20 PM [facility] 12/27/2024 11:0 1 AM FILM ARCHIVIST 12/27/2024 1:45 PM FILM ARCHIVIST us Trey Diaz DO ECG ORDERABLES Final Resul t [facility] * XR Hip Right 2 or 3 Views W Pelvis (12/27/2024 10:51 AM FILM ARCHIVIST) Anatomical Region Laterality Modality Lower Extremities, Hip, Pelvis Right C omputed Radiography 12/27/2024 11:2 2 AM FILM ARCHIVIST Narrative 12/27/2024 11:24 AM FILM ARCHIVIST EXAM DESCRIPTION: XR HIP RIGHT 2 OR 3 VIEWS W PELVIS REASON FOR STUDY: acute pain Pain s/p ground level fall at [facility] TECHNIQUE: AP pelvis and lateral view of the right hip. COMPARISON: None available FINDINGS: BONES/JOINTS: There is bilateral total hip arthroplasty hardware. No acute fracture is seen. There is mild osteoarthritis of the sacroiliac joints. SOFT TISSUES: No acute findings. OTHER: No other acute findings. IMPRESSION: No acute osseous abnormality. Bilateral hip arthroplasty hardware. THIS IS AN ELECTRONICALLY VERIFIED FINAL REPORT 12/27/2024 11:24 AM - Electronically signed by Armin Rubio M.D., JR: Report ID: [id number] Reading Location: [id number] Procedure Note Armin Rubio MD - 12/27/2024 EXAM DESCRIPTION: XR HIP RIGHT 2 OR 3 VIEWS W PELVIS REASON FOR STUDY: acute pain Pain s/p ground level fall at [facility] TECHNIQUE: AP pelvis and lateral view of the right hip. COMPARISON: None available FINDINGS: BONES/JOINTS: There is bilateral total hip arthroplastyhardware. No acute fracture is seen. There is mild osteoarthritis of the sacroiliac joints. SOFT TISSUES: No acute findings. OTHER: No other acute findings. IMPRESSION: No acute osseous abnormality. Bilateral hip arthroplastyhardware. THIS IS AN ELECTRONICALLY VERIFIED FINAL REPORT 12/27/2024 11:24 AM - Electronically signed by Armin Rubio M.D. JR: Report ID: [id number] Reading Location: [id number] us Trey Diaz DO IMG XR PROCEDURES Final Res ult * XR Chest 1 Vw Portable (12/27/2024 10:51 AM FILM ARCHIVIST) Anatomical Region Laterality Modality Body, Chest N/A Computed Radiogr aphy 12/27/2024 11:2 0 AM FILM ARCHIVIST Narrative 12/27/2024 11:21 AM FILM ARCHIVIST EXAM DESCRIPTION: XR CHEST 1 VIEW REASON FOR STUDY: acute pain Pain s/p ground level fall at [facility] TECHNIQUE: Single radiographic view(s) of the chest. COMPARISON: Chest radiograph 09/27/2024 FINDINGS: The heart appears enlarged although size is not accurately assessed by AP technique. No airspace consolidation or pleural effusion is seen. There is surgical hardware in the lower thoracic spine. There are aortic calcifications. IMPRESSION: No acute findings THIS IS AN ELECTRONICALLY VERIFIED FINAL REPORT 12/27/2024 11:21 AM - Electronically signed by Armin Rubio M.D., JR: Report ID: [id number] Reading Location: [id number] Procedure Note Armin Rubio MD - 12/27/2024 EXAM DESCRIPTION: XR CHEST 1 VIEW REASON FOR STUDY: acute pain Pain s/p ground level fall at [facility] TECHNIQUE: Single radiographic view(s) of the chest. COMPARISON: Chest radiograph 09/27/2024 FINDINGS: The heart appears enlarged although size is not accuratelyassessed by AP technique. No airspace consolidation or pleural effusion is seen. There is surgical hardware in the lower thoracic spine. There are aortic calcifications. IMPRESSION: No acute findings THIS IS AN ELECTRONICALLY VERIFIED FINAL REPORT 12/27/2024 11:21 AM - Electronically signed by Armin Rubio M.D., JR: Report ID: [id number] Reading Location: [id number] us Trey Diaz DO IMG XR PROCEDURES Final Res ult * XR Ankle Left 3 or More Views (12/27/2024 10:51 AM FILM ARCHIVIST) Anatomical Region Laterality Modality Lower Extremities, Ankle Left Compute d Radiography 12/27/2024 11:1 8 AM FILM ARCHIVIST Narrative 12/27/2024 11:27 AM FILM ARCHIVIST EXAM DESCRIPTION: XR ANKLE LEFT 3 OR MORE VIEWS REASON FOR STUDY: acute pain Pain s/p ground level fall at [facility] TECHNIQUE: 3 radiographic view(s) of the left ankle . COMPARISON: None FINDINGS: There is small curvilinear ossific fragment between the lateral malleolus and lateral process of the talus. This is questionable for avulsion fracture although no significant soft tissue swelling is seen. There is no significant ankle joint effusion. The ankle mortise appears congruent. There is a plantar calcaneal enthesophyte. IMPRESSION: Small ossific fragment between the lateral malleolus and lateral process of the talus, questionable for avulsion fracture although without significant soft tissue swelling appreciated. Correlate with point tenderness. THIS IS AN ELECTRONICALLY VERIFIED FINAL REPORT 12/27/2024 11:27 AM - Electronically signed by Armin Rubio M.D. JR: Report ID: [id number] Reading Location: [id number] Procedure Note Armin Rubio MD - 12/27/2024 EXAM DESCRIPTION: XR ANKLE LEFT 3 OR MORE VIEWS REASON FOR STUDY: acute pain Pain s/p ground level fall at [facility] TECHNIQUE: 3 radiographic view(s) of the left ankle . COMPARISON: None FINDINGS: There is small curvilinear ossific fragment between the lateral malleolus and lateral process of the talus. This is questionable foravulsion fracture although no significant soft tissue swelling is seen. There isno significant ankle joint effusion. The ankle mortise appears congruent.There is a plantar calcaneal enthesophyte. IMPRESSION: Small ossific fragment between the lateral malleolus andlateral process of the talus, questionable for avulsion fracture although without significant soft tissue swelling appreciated. Correlate with pointtenderness. THIS IS AN ELECTRONICALLY VERIFIED FINAL REPORT 12/27/2024 11:27 AM - Electronically signed by Armin DESHPANDE JR Report ID: [id number] Reading Location: [id number] us Trey René Diaz DO IMG XR PROCEDURES Final Res ult * XR Spine Lumbar 2 or 3 Views (12/27/2024 10:51 AM FILM ARCHIVIST) Anatomical Region Laterality Modality Spine N/A Computed Radiogr aphy 12/27/2024 11:2 1 AM FILM ARCHIVIST Narrative 12/27/2024 11:23 AM FILM ARCHIVIST EXAM DESCRIPTION: XR SPINE LUMBAR 2 OR 3 VIEWS; XR SPINE THORACIC 3 VIEWS REASON FOR STUDY: acute pain Pain s/p ground level fall at [facility] TECHNIQUE: Lumbar spine three views, thoracic spine three views COMPARISON: None FINDINGS: The bone mineralization is decreased. No fracture is seen in the thoracic spine or lumbar spine. There is left lateral fusion hardware from T10-T12. There is disc space narrowing with endplate osteophyte formation and sclerosis at L1-L2. There is disc space narrowing at L4-L5 and L5-S1. There is facet joint arthropathy in the lower lumbar spine. There is grade 1 retrolisthesis of L1 on L2 and L4 on L5. There is partially visualized bilateral hip arthroplasty hardware. IMPRESSION: No acute osseous abnormality identified in the thoracic spine or lumbar spine given osteopenia. With trauma, if further evaluation is clinically necessary, CT could be considered. Thoracic fusion hardware from T10-T12. Multilevel lumbar spondylosis. THIS IS AN ELECTRONICALLY VERIFIED FINAL REPORT 12/27/2024 11:23 AM - Electronically signed by Armin Rubio M.D. JR: Report ID: [id number] Reading Location: [id number] Procedure Note Armin Rubio MD - 12/27/2024 EXAM DESCRIPTION: XR SPINE LUMBAR 2 OR 3 VIEWS; XR SPINE THORACIC 3 VIEWS REASON FOR STUDY: acute pain Pain s/p ground level fall at [facility] TECHNIQUE: Lumbar spine three views, thoracic spine three views COMPARISON: None FINDINGS: The bone mineralization is decreased. No fracture is seen inthe thoracic spine or lumbar spine. There is left lateral fusion hardwarefrom T10-T12. There is disc space narrowing with endplate osteophyte formationand sclerosis at L1-L2. There is disc space narrowing at L4-L5 and L5-S1.There is facet joint arthropathy in the lower lumbar spine. There is grade 1 retrolisthesis of L1 on L2 and L4 on L5. There is partially visualized bilateral hip arthroplasty hardware. IMPRESSION: No acute osseous abnormality identified in the thoracic spine or lumbarspine given osteopenia. With trauma, if further evaluation is clinicallynecessary, CT could be considered. Thoracic fusion hardware from T10-T12. Multilevel lumbar spondylosis. THIS IS AN ELECTRONICALLY VERIFIED FINAL REPORT 12/27/2024 11:23 AM - Electronically signed by Armin Rubio M.D. JR: Report ID: [id number] Reading Location: [id number] us Trey Diaz DO IMG XR PROCEDURES Final Res ult * XR Spine Thoracic 3 Vw (12/27/2024 10:51 AM FILM ARCHIVIST) Anatomical Region Laterality Modality Spine N/A Computed Radiogr aphy 12/27/2024 11:2 1 AM FILM ARCHIVIST Narrative 12/27/2024 11:23 AM FILM ARCHIVIST EXAM DESCRIPTION: XR SPINE LUMBAR 2 OR 3 VIEWS; XR SPINE THORACIC 3 VIEWS REASON FOR STUDY: acute pain Pain s/p ground level fall at [facility] TECHNIQUE: Lumbar spine three views, thoracic spine three views COMPARISON: None FINDINGS: The bone mineralization is decreased. No fracture is seen in the thoracic spine or lumbar spine. There is left lateral fusion hardware from T10-T12. There is disc space narrowing with endplate osteophyte formation and sclerosis at L1-L2. There is disc space narrowing at L4-L5 and L5-S1. There is facet joint arthropathy in the lower lumbar spine. There is grade 1 retrolisthesis of L1 on L2 and L4 on L5. There is partially visualized bilateral hip arthroplasty hardware. IMPRESSION: No acute osseous abnormality identified in the thoracic spine or lumbar spine given osteopenia. With trauma, if further evaluation is clinically necessary, CT could be considered. Thoracic fusion hardware from T10-T12. Multilevel lumbar spondylosis. THIS IS AN ELECTRONICALLY VERIFIED FINAL REPORT 12/27/2024 11:23 AM - Electronically signed by Armin Rubio M.D., JR: Report ID: [id number] Reading Location: [place] [id number] Procedure Note Armin Rubio MD - 12/27/2024 EXAM DESCRIPTION: XR SPINE LUMBAR 2 OR 3 VIEWS; XR SPINE THORACIC 3 VIEWS REASON FOR STUDY: acute pain Pain s/p ground level fall at [facility] TECHNIQUE: Lumbar spine three views, thoracic spine three views COMPARISON: None FINDINGS: The bone mineralization is decreased. No fracture is seen inthe thoracic spine or lumbar spine. There is left lateral fusion hardwarefrom T10-T12. There is disc space narrowing with endplate osteophyte formationand sclerosis at L1-L2. There is disc space narrowing at L4-L5 and L5-S1.There is facet joint arthropathy in the lower lumbar spine. There is grade 1 retrolisthesis of L1 on L2 and L4 on L5. There is partially visualized bilateral hip arthroplasty hardware. IMPRESSION: No acute osseous abnormality identified in the thoracic spine or lumbarspine given osteopenia. With trauma, if further evaluation is clinicallynecessary, CT could be considered. Thoracic fusion hardware from T10-T12. Multilevel lumbar spondylosis. THIS IS AN ELECTRONICALLY VERIFIED FINAL REPORT 12/27/2024 11:23 AM - Electronically signed by Armin Rubio M.D. JR: Report ID: [id number] Reading Location: [id number] us Trey Diaz DO IMG XR PROCEDURES Final Res ult * CT Head WO Contrast (12/27/2024 10:34 AM FILM ARCHIVIST) Anatomical Region Laterality Modality Head and Neck N/A Computed Tomogra phy 12/27/2024 11:0 4 AM FILM ARCHIVIST Narrative 12/27/2024 11:09 AM FILM ARCHIVIST EXAM DESCRIPTION: CT HEAD WO CONTRAST REASON FOR STUDY: Head trauma, minor (Age >= 65y) Pt's daughter reports pt was recently diagnosed with MG and fell at [facility]. Has pain to back of head, L ankle, R hip/pelvis and thoracic spine down. States last night the pain in her back radiated through to her chest. Pt takes eliquis. Daughter also adds that pt has seemed a bit confused but unsure if it is from the fall or the MG. TECHNIQUE: Axial images acquired through the brain without intravenous contrast. Images stored on PACS. Automated exposure control was used as a dose optimization technique for this examination. COMPARISON: None FINDINGS: BRAIN: No hemorrhage, edema or mass effect. No recent infarct. There is a punctate area of low attenuation in the right cerebellum and a small to moderate-sized area of low attenuation in the left cerebellum which may represent small chronic infarctions. There are mild chronic microangiopathic changes and there is age-appropriate generalized atrophy. There is no hydrocephalus. EXTRA-AXIAL SPACES: No fluid collections. No masses. CALVARIUM: No fracture. SINUSES/MASTOIDS: No fluid or mucosal thickening. ORBITS: No significant abnormality. OTHER: No other significant abnormality. IMPRESSION: 1. No acute intracranial findings. 2. Small to moderate-sized area of low attenuation in the left cerebellum and a punctate area of low attenuation in the right cerebellum which may represent small chronic infarctions that could be better evaluated on MRI. THIS IS AN ELECTRONICALLY VERIFIED FINAL REPORT 12/27/2024 11:09 AM - Electronically signed by Cheo Stover M.D. AM: AM Report ID: [id number] Reading Location: [id number] Procedure Note Cheo Stover MD - 12/27/2024 EXAM DESCRIPTION: CT HEAD WO CONTRAST REASON FOR STUDY: Head trauma, minor (Age >= 66y) Pt's daughter reports [facility] Has pain to back of head, L ankle, R hip/pelvis and thoracic spine down. States last night the pain in her back radiated through to her chest. Pttakes eliquis. Daughter also adds that pt has seemed a bit confused but unsureif it is from the fall or the MG. TECHNIQUE: Axial images acquired through the brain without intravenous contrast. Images stored on PACS. Automated exposure control was used asa dose optimization technique for this examination. COMPARISON: None FINDINGS: BRAIN: No hemorrhage, edema or mass effect. No recent infarct. There is a punctate area of low attenuation in the right cerebellum and a small to moderate-sized area of low attenuation in the left cerebellumwhich may represent small chronic infarctions. There are mild chronic microangiopathic changes and there is age-appropriate generalized atrophy. There is no hydrocephalus. EXTRA-AXIAL SPACES: No fluid collections. No masses. CALVARIUM: No fracture. SINUSES/MASTOIDS: No fluid or mucosal thickening. ORBITS: No significant abnormality. OTHER: No other significant abnormality. IMPRESSION: 1. No acute intracranial findings. 2. Small to moderate-sized area of low attenuation in the left cerebellumand a punctate area of low attenuation in the right cerebellum which mayrepresent small chronic infarctions that could be better evaluated on MRI. THIS IS AN ELECTRONICALLY VERIFIED FINAL REPORT 12/27/2024 11:09 AM - Electronically signed by Cheo Stover M.D. AM: AM Report ID: [id number] Reading Location: [id number] us Trey Diaz DO IMG CT PROCEDURES Final Res ult * Electrocardiogram Report (12/18/2024 8:31 AM FILM ARCHIVIST) Wilmar Kraus MD ECG ORDERABLES Final Result from Last 3 Months Insurance MEDICARE [facility] MEDICARE [employer] MEDICARE [facility] Care Teams Gospel Singer Relationship Specialty Start Date End Date Rm Broderick MD [address] [facility] [[email or web address] [address] [place] [address] PCP - General Family Medicine 12/18/24
--- OUTSIDE RECORDS SUMMARY | 2025-02-12 10:19 | XMS_ITS | Encounter Summary ---
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 Gender Identity Not on file Sexual Orientation Not on file documented as of this encounter Plan of Treatment Upcoming Encounters Date Type Department Care Team (Late st Contact Info) Description 02/15/2025 11:30 AM CDT Office Visit [facility] Oncology and Hematology - [place] [address] [place] [address] [facility] [address] [place] [address] Carlos Desouza MD [address] [place] [address] documented as of this encounter Visit Diagnoses Not on filedocumented in this encounter Care Teams Med Spa Manager Relationship Specialty Start Date End Date Iliana Gonzalez MD [address] [facility] [address] [place] [id number] PCP - General Family Practice 10/10/23 documented as of this encounter
--- OUTSIDE RECORDS SUMMARY | 2025-02-12 10:19 | XMS_ITS | Clinical Summary ---
Author Organization [facility] Address [address] [place] [address] Care Team Providers Care Phone Triage Specialist Name Role Phone Rm Broderick MD Primary Care Provider Allergies Active Allergy Reactions Criticality Noted Date [...] a day as needed for pain Active gyzowlmy06-jykg- Lmfolate-algal 27 mg iron-1.13 mg-581.92 mg capsule Take 1 tablet by mouth daily Active albuterol HFA (PROVENTIL HFA,VENTOLIN HFA,PROAIR HFA) 90 mcg/actuation inhaler Inhale 2 puffs every 6 (six) hours as needed Active levothyroxine (SYNTHROID) 100 mcg tablet Take 1 tablet (100 mcg total) by mouth box maker wood before breakfast Active fluticasone-umec lidin-vilanter (Trelegy Ellipta) [...] Pulmonary hypertension 04/09/2022 Shortness of breath 04/09/2022 Encounters Date Type Department Care Team Description 01/16/2025 9:00 AM CDT Office Visit [facility] Orthopedics and Sports Medicine [address] [facility] [address] [place] [address] Rm Paredes DO Acute left ankle pain (Primary Dx); Other closed fracture of distal end of left fibula, initial encounter 01/16/2025 8:39 AM CDT - 01/16/2025 11:59 PM CDT Hospital Encounter [facility] Di[facility] Imaging [address] [place] [address] Acute left ankle pain Discharge Disposition: Discharge to home or self care 12/27/2024 10:31 AM CONTROL CLERK REPAIRS - 12/27/2024 2:40 PM CONTROL CLERK REPAIRS Emergency [facility] Emergency Department [address] [place] [id number] Trey Diaz DO Right low back pain, unspecified chronicity, unspecified whether sciatica present (Primary Dx); Closed avulsion fracture of left ankle, initial encounter; Abnormal CT of the head Discharge Disposition: Discharge to home or self care 12/18/2024 11:00 AM CONTROL CLERK REPAIRS Office Visit [facility] Cardiology [address] [place] [address] Wilmar Kraus MD Chest pressure (Primary Dx) from Last 3 Months Surgical History Surgery Date Site/Laterality Comments CERVICAL FUSION THORACIC FUSION TOTAL KNEE ARTHROPLASTY HIP SURGERY CHOLECYSTECTOMY LUMBAR FUSION THYROID SURGERY HERNIA REPAIR 03/28/23 Medical History Medical History Date Comments Hypertension Hypertension Hx Other Medical Diastolic dysfu nction Hx Other Medical Pulmonary Hyper tension Hx Other Medical Herniated Disk Hx Other Medical Back Pain Low back pain Thyroid disease Mid back pain Fatigue Cardiomegaly Nonrheumatic mitral (valve) insufficiency Family History Medical History Relation Name Comments No Known Problems Father Coronary artery disease Mother Relation Name Status Comments Father Mother Social History Tobacco Use Types Packs/Day Years [...] on file Legal Sex Female 1:48 AM CONTROL CLERK REPAIRS Gender Identity Not on file Sexual Orientation Not on file Obstetrics History Last Filed Vital Signs Vital Sign Reading Time Taken Comments Blood Pressure 136/55 12/27/2024 1:00 PM CONTROL CLERK REPAIRS Pulse 73 12/27/2024 1:00 PM CONTROL CLERK REPAIRS Temperature 36.8 C (98.2 F) 12/27/2024 10:28 AM CONTROL CLERK REPAIRS Respiratory Rate 19 12/27/2024 1:00 PM CONTROL CLERK REPAIRS Oxygen Saturation 99% 12/27/2024 1:00 PM CONTROL CLERK REPAIRS Inhaled Oxygen Concentration - - Weight 78 kg (172 lb) 01/16/2025 9:06 AM CDT Height 170.2 cm (5' 7 ) 01/16/2025 9:06 AM CDT Body Mass Index 26.94 01/16/2025 9:06 AM CDT Plan of Treatment Health Maintenance Due Date Last Done Comments Depression Screening 1941 Fall Risk Assessment 1941 Osteoporosis Screening-Bone Density Scan 1941 DTaP/Tdap/Td Vaccine (1 - Tdap) 1952 Hepatitis B Screening 1959 Pneumococcal vaccine 65+ (1 of 2 - PCV) 1960 Zoster Vaccine (1 of 2) 1960 Well Visit 65+ 2006 Covid-19 Vaccine (2 - Pfizer risk series) 11/11/2021 10/21/2021 Influenza Vaccine (Season Ended) 2025 Goals Goal Patient Goal Type Associated Problems Recent Progress Patient-Stated? Author CCM Chronic Pain Care Plan Chronic Care Management On track(2020 1:08 PM CONTROL CLERK REPAIRS) No Joi Booker, RN Note: Problem: Chronic Pain Goals: 1. Minimize further functional decline 2. Maximize quality of life 3. Control pain Strategies: - Activity/exercise program recommendation - Conservative stepwise pain medicine strategy with multi-disciplinary approach - Recommend healthy lifestyle strategies and compensatory methods as needed Medical Devices Implanted Type Area Bow Stapler Device Identifier Shelf Expiration Date Model / Serial / Lot Rt Knee Hip B/L Hips Hip Procedures Procedure Name Priority Date/Time Associated Diagnosis Comments XR ANKLE LEFT 3 OR MORE VIEWS Schedule Routine, Read Routine (OP Routine) 01/16/2025 8:55 AM CDT Acute left ankle pain TROPONIN T HIGH-SENSITIVITY 2-HOUR Timed 12/27/2024 1:[address] LUMBAR SPINE WO CONTRAST ED 12/27/2024 12:17 PM CONTROL CLERK REPAIRS EGFR STAT 12/27/2024 11:26 AM CONTROL CLERK REPAIRS DIFFERENTIAL AUTO STAT 12/27/2024 11:26 AM CONTROL CLERK REPAIRS TROPONIN T HIGH-SENSITIVITY SERIES (BASELINE, 2HR, 4HR, 6HR) STAT 12/27/2024 11:26 AM CONTROL CLERK REPAIRS COMPREHENSIVE METABOLIC PANEL STAT 12/27/2024 11:26 AM CONTROL CLERK REPAIRS CBC WITH AUTO DIFFERENTIAL STAT 12/27/2024 11:26 AM CONTROL CLERK REPAIRS ECG 12-LEAD STAT 12/27/2024 11:01 AM CONTROL CLERK REPAIRS XR CHEST 1 VIEW ED 12/27/2024 10:51 AM CONTROL CLERK REPAIRS XR SPINE LUMBAR 2 OR 3 VIEWS ED 12/27/2024 10:51 AM CONTROL CLERK REPAIRS XR SPINE THORACIC 3 VIEWS ED 12/27/2024 10:51 AM CONTROL CLERK REPAIRS XR HIP RIGHT W PELVIS 2 OR 3 VIEWS ED 12/27/2024 10:51 AM CONTROL CLERK REPAIRS XR ANKLE LEFT 3 OR MORE VIEWS ED 12/27/2024 10:51 [address] HEAD WO CONTRAST ED 12/27/2024 10:34 AM CONTROL CLERK REPAIRS ELECTROCARDIOGRAM REPORT Routine 025 8:31 AM CONTROL CLERK REPAIRS Chest pressure from Last 3 Months Results [...] 7:18 PM - Electronically signed by Martin Hope M.D. MJ T: Report ID: [id number] Reading Location: [id number] Procedure Note Martin Hope MD - 01/19/2025 [...] 7:18 PM - Electronically signed by Martin Hope M.D. MJ T: Report ID: [id number] Reading Location: [place] [address] Rm Paredes DO IMG XR PROCEDURES Final Result * (ABNORMAL) Troponin T high-sensitivity 2-hour (12/27/2024 1:19 PM CONTROL CLERK REPAIRS) Trop T hs 26(H) <=14 ng/L Comment: Interpretive Data For further hscTnT resources including the diagnostic algorithm and an aid in interpretation, copy and paste this link: https://nrl.testcatalog.org/show/hsTrop Current Interpretive Data last revised 2020. Testing performed by: [address] [address] Trop T hs delta 3 ng/L RENAN Comment:Testing performed by : [address] [address] Trop T hs interp Insignificant RENAN Comment:Testing performed by : [address] [address] Blood 12/27/2024 1:19 PM CONTROL CLERK REPAIRS 12/27/2024 1:22 PM CONTROL CLERK REPAIRS Trey Diaz DO LAB BLOOD ORDERABLES Final Result RENAN [facility] [address] [facility] Department [place] [address] * CT Lumbar Spine WO Contrast (12/27/2024 12:17 PM CONTROL CLERK REPAIRS) Anatomical Region Laterality Modality Spine N/A Computed Tomogra phy 12/27/2024 12:4 3 PM CONTROL CLERK REPAIRS Narrative 12/27/2024 12:49 PM CONTROL CLERK REPAIRS EXAM DESCRIPTION: CT LUMBAR SPINE WO CONTRAST [...] visualization of bilateral total hip arthroplasties on checkout supervisor view. INDIVIDUAL DISC LEVELS: Constellation of spondylolisthesis, [...] Rm Mann M.D. GISELLA: GISELLA Report ID: [id number] Reading Location: [id number] Procedure Note Rm Mann MD - 12/27/2024 [...] Limited visualization of bilateraltotal hip arthroplasties on checkout supervisor view. INDIVIDUAL DISC LEVELS: Constellation of spondylolisthesis, [...] Rm Mann M.D. GISELLA: GISELLA Report ID: [id number] Reading Location: [id number] us Trey Diaz DO IMG CT PROCEDURES Final Res ult * (ABNORMAL) Troponin T high-sensitivity series (baseline, 2hr, 4hr, 6hr) (12/27/2024 11:26 AM CONTROL CLERK REPAIRS) Trop T hs 23(H) <=14 ng/L Comment: Interpretive Data For further hscTnT resources including the diagnostic algorithm and an aid in interpretation, copy and paste this link: https://nrl.testcatalog.org/show/hsTrop Current Interpretive Data last revised 2020. Testing performed by: [facility], [address] [place] [address]., [id number] Blood 12/27/2024 11:2 6 AM CONTROL CLERK REPAIRS 12/27/2024 11:34 AM CONTROL CLERK REPAIRS us Trey Diaz DO LAB BLOOD ORDERABLES Final Result [facility] [address] [facility] Department [place] [address] * eGFR (12/27/2024 11:26 AM CONTROL CLERK REPAIRS) eGFR 60 >=60 mL/min/1. 73 m2 Comment: [...] was last reviewed 2021. Testing performed by: [address] [address] Blood 12/27/2024 11:2 6 AM CONTROL CLERK REPAIRS 12/27/2024 11:34 AM CONTROL CLERK REPAIRS us Trey Diaz DO LAB BLOOD ORDERABLES Final Result RENAN [address] [facility] Department of Laboratories [place], [place] [id number] * (ABNORMAL) Differential, auto (12/27/2024 11:26 AM CONTROL CLERK REPAIRS) Neutrophil abs 6.7(H) 1.5 - 6.5 K/cumm Comment:Testing performed by : [address] [address] Imm gran abs 0.1 0.0 - 0.1 K/cumm RENAN Comment:Testing performed by : [address] [address] Lymphocyte abs 1.1 0.8 - 3.3 K/cumm RENAN Comment:Testing performed by : [address] [address] Monocyte abs 0.7 0.2 - 0.8 K/cumm RENAN Comment:Testing performed by : [address] [address] Eosinophil abs 0.1 0.0 - 0.5 K/cumm RENAN Comment:Testing performed by : [address] [address] Basophil abs 0.0 0.0 - 0.1 K/cumm RENAN Comment:Testing performed by : [address] [address] Neutrophil pct 78.1 % RENAN Comment: Interpretive Data Percent cell count reference ranges are not reported, since discordance with absolute values may lead to misinterpretation of CBC data. Current Interpretive Data was last revised on 2018. Testing performed by: [address] [address] Imm gran pct 0.8 % [facility] Comment: Interpretive Data Percent cell count reference ranges are not reported, since discordance with absolute values may lead to misinterpretation of CBC data. Current Interpretive Data was last revised on 2018. Testing performed by: [address] [address] Lymphocyte pct 12.3 % [facility] Comment: Interpretive Data Percent cell count reference ranges are not reported, since discordance with absolute values may lead to misinterpretation of CBC data. Current Interpretive Data was last revised on 2018. Testing performed by: [address] [address] Monocyte pct 7.5 % [facility] Comment: Interpretive Data Percent cell count reference ranges are not reported, since discordance with absolute values may lead to misinterpretation of CBC data. Current Interpretive Data was last revised on 2018. Testing performed by: [address] [address] Eosinophil pct 1.0 % [facility] Comment: Interpretive Data Percent cell count reference ranges are not reported, since discordance with absolute values may lead to misinterpretation of CBC data. Current Interpretive Data was last revised on 2018. Testing performed by: [address] [address] Basophil pct 0.3 % [facility] Comment: Interpretive Data Percent cell count reference ranges are not reported, since discordance with absolute values may lead to misinterpretation of CBC data. Current Interpretive Data was last revised on 2018. Testing performed by: [address] [address] Blood 12/27/2024 11:2 6 AM CONTROL CLERK REPAIRS 12/27/2024 11:36 AM CONTROL CLERK REPAIRS us Trey Diaz DO LAB BLOOD ORDERABLES Final Result [facility] [address] [facility] Department [place] [address] * (ABNORMAL) CBC with auto differential (12/27/2024 11:26 AM CONTROL CLERK REPAIRS) WBC 8.6 3.8 - 9.9 K/cumm Comment:Testing performed by : [address] [address] Hgb 12.1 11.9 - 15.5 g/dL RENAN Comment:Testing performed by : [address] [address] Hct 37.0 35.6 - 45.5 % RENAN Comment:Testing performed by : [address] [address] Plt 226 150 - 400 K/cumm RENAN Comment:Testing performed by : [address] [address] MPV 10.2 9.1 - 12.3 fL RENAN Comment:Testing performed by : [address], [address] RBC 4.01 3.90 - 5.20 M/cumm RENAN Comment:Testing performed by : [address] [address] MCV 92.3 81.3 - 96.4 fL RENAN [place] Comment:Testing performed by : [address] [address] MCH 30.2 27.1 - 33.3 pg RENAN Comment:Testing performed by : [address] [address] MCHC 32.7 32.3 - 35.7 g/dL RENAN Comment:Testing performed by : [address] [address] RDW CV 16.3(H) 11.1 - 14.9 % RENAN [place] Comment:Testing performed by : [address] [address] RDW SD 55.9(H) 35.7 - 48.1 fL RENAN Comment:Testing performed by : [address] [address] NRBC abs 0.00 0.00 - 0.01 K/cumm RENAN Comment:Testing performed by : [address] [address] Blood 12/27/2024 11:2 6 AM CONTROL CLERK REPAIRS 12/27/2024 11:36 AM CONTROL CLERK REPAIRS Trey Diaz DO LAB BLOOD ORDERABLES Final Result RENAN [address] [facility] Department [place] [address] * (ABNORMAL) Comprehensive metabolic panel (12/27/2024 11:26 AM CONTROL CLERK REPAIRS) Sodium 138 135 - 145 mmol/L Comment:Testing performed by : [address] [address] Potassium, pl 3.6 3.3 - 4.9 mmol/L RENAN Comment: Hemolyzed; Potassium value may be falsely elevated by as much as 1.0 mmol/L. Suggest redraw and reanalysis. Testing performed by: [address] [address] Chloride 102 97 - 110 mmol/L RENAN Comment:Testing performed by : [address] [address] CO2 27 22 - 32 mmol/L RENAN Comment:Testing performed by : [address] [address] Anion gap 9 2 - 15 mmol/L RENAN Comment:Testing performed by : [address] [address] BUN 17 6 - 25 mg/dL RENAN Comment:Testing performed by : [address] [address] Creatinine 0.94 0.60 - 1.10 mg/dL RENAN Comment:Testing performed by : [address] [address] Glucose 91 70 - 199 mg/dL RENAN [...] classification and Diagnosis of Diabetes Diabetes Care 2021; 46: S19-S40. Current interpretive data was last revised 2022. Testing performed by: [address] [address] Calcium 9.9 8.5 - 10.3 mg/dL RENAN Comment:Testing performed by : [address] [address] Bilirubin, total 0.3 0.1 - 1.2 mg/dL RENAN Comment:Testing performed by : [address] [address] Protein, pl 6.6 6.5 - 8.5 g/dL RENAN Comment:Testing performed by : [address] [address] Albumin 3.9 3.5 - 5.0 g/dL [facility] Comment:Testing performed by : [address] [address] Alk phos 36(L) 40 - 130 Units/L RENAN Comment:Testing performed by : [address] [address] ALT 24 7 - 45 Units/L RENAN Comment:Testing performed by : [address] [address] AST 20 10 - 45 Units/L RENAN Comment: Hemolyzed; result may be falsely elevated Testing performed by: [address] [address] Blood 12/27/2024 11:2 6 AM CONTROL CLERK REPAIRS 12/27/2024 11:34 AM CONTROL CLERK REPAIRS Trey Diaz DO LAB BLOOD ORDERABLES Final Result Performing Organization Address City/[facility]/ZIP Co de Phone Number RENAN [address] [facility] Department [place] [address] * ECG 12 lead (12/27/2024 11:01 AM CONTROL CLERK REPAIRS) Ventricular Rate EKG/Min 82 BPM [facility] Atrial Rate 82 BPM [facility] RI-Interval (MSEC) 126 ms [facility] QRS-Interval (MSEC) 86 ms [facility] QT-Interval (MSEC) 366 ms [facility] QTc 427 ms [facility] P [place] 66 degrees [facility] R [place] -7 degrees [facility] T [place] 13 degrees [facility] Diagnosis Sinus rhythm with marked sinus arrhythmia with occasional Premature ventricular complexes Minimal voltage criteria for LVH, may be normal variant Borderline ECG Confirmed by JOSEFINA BERGMAN M.D. ([id number]) on 12/27/2024 1:45:20 PM [facility] 12/27/2024 11:0 1 AM CONTROL CLERK REPAIRS 12/27/2024 1:45 PM CONTROL CLERK REPAIRS us Trey Diaz DO ECG ORDERABLES Final Resul t Performing Organization Address [facility] Co de Phone Number [facility] [employer] [facility] * XR Hip Right 2 or 3 Views W Pelvis (12/27/2024 10:51 AM CONTROL CLERK REPAIRS) Anatomical Region Laterality Modality Lower Extremities, Hip, Pelvis Right C omputed Radiography 12/27/2024 11:2 2 AM CONTROL CLERK REPAIRS Narrative 12/27/2024 11:24 AM CONTROL CLERK REPAIRS EXAM DESCRIPTION: XR HIP RIGHT 2 OR 3 VIEWS W PELVIS REASON FOR STUDY: acute pain Pain s/p ground level fall at [facility] today TECHNIQUE: AP pelvis and lateral view of [...] by Armin Rubio M.D. JR: Report ID: [id number] Reading Location: [id number] Procedure Note Armin Rubio MD - 12/27/2024 EXAM DESCRIPTION: XR HIP RIGHT 2 OR 3 VIEWS W PELVIS REASON FOR STUDY: acute pain Pain s/p ground level fall at [facility] TECHNIQUE: AP pelvis and lateral view of [...] by Armin Rubio M.D. JR: Report ID: [id number] Reading Location: [id number] Trey Diaz DO IMG XR PROCEDURES Final Res ult * XR Chest 1 Vw Portable (12/27/2024 10:51 AM CONTROL CLERK REPAIRS) Anatomical Region Laterality Modality Body, Chest N/A Computed Radiogr aphy 12/27/2024 11:2 0 AM CONTROL CLERK REPAIRS Narrative 12/27/2024 11:21 AM CONTROL CLERK REPAIRS EXAM DESCRIPTION: XR CHEST 1 VIEW REASON FOR STUDY: acute pain Pain s/p ground level fall at [facility] TECHNIQUE: Single radiographic view(s) of the chest. [...] by Armin Rubio M.D., JR: Report ID: [id number] Reading Location: [id number] Procedure Note Armin Rubio MD - 12/27/2024 EXAM DESCRIPTION: XR CHEST 1 VIEW REASON FOR STUDY: acute pain Pain s/p ground level fall at [facility] TECHNIQUE: Single radiographic view(s) of the chest. [...] by Armin Rubio M.D. JR: Report ID: [id number] Reading Location: [id number] us Trey Diaz DO IMG XR PROCEDURES Final Res ult * XR Ankle Left 3 or More Views (12/27/2024 10:51 AM CONTROL CLERK REPAIRS) Anatomical Region Laterality Modality Lower Extremities, Ankle Left Compute d Radiography 12/27/2024 11:1 8 AM CONTROL CLERK REPAIRS Narrative 12/27/2024 11:27 AM CONTROL CLERK REPAIRS EXAM DESCRIPTION: XR ANKLE LEFT 3 OR MORE VIEWS REASON FOR STUDY: acute pain Pain s/p ground level fall at [facility] TECHNIQUE: 3 radiographic view(s) of the left [...] by Armin Rubio M.D., JR: Report ID: [id number] Reading Location: [id number] Procedure Note Armin Rubio MD - 12/27/2024 EXAM DESCRIPTION: XR ANKLE LEFT 3 OR MORE VIEWS REASON FOR STUDY: acute pain Pain s/p ground level fall at [facility] TECHNIQUE: 3 radiographic view(s) of the left [...] by Armin Rubio M.D. JR: Report ID: [id number] Reading Location: [id number] us Trey Diaz DO IMG XR PROCEDURES Final Res ult * XR Spine Lumbar 2 or 3 Views (12/27/2024 10:51 AM CONTROL CLERK REPAIRS) Anatomical Region Laterality Modality Spine N/A Computed Radiogr aphy 12/27/2024 11:2 1 AM CONTROL CLERK REPAIRS Narrative 12/27/2024 11:23 AM CONTROL CLERK REPAIRS EXAM DESCRIPTION: XR SPINE LUMBAR 2 OR 3 VIEWS; XR SPINE THORACIC 3 VIEWS REASON FOR STUDY: acute pain Pain s/p ground level fall at [facility] TECHNIQUE: Lumbar spine three views, thoracic spine [...] by Armin Rubio M.D. JR: Report ID: [id number] Reading Location: [id number] Procedure Note Armin Rubio MD - 12/27/2024 EXAM DESCRIPTION: XR SPINE LUMBAR 2 OR 3 VIEWS; XR SPINE THORACIC 3 VIEWS REASON FOR STUDY: acute pain Pain s/p ground level fall at [facility] TECHNIQUE: Lumbar spine three views, thoracic spine [...] by Armin Rubio M.D., JR: Report ID: [id number] Reading Location: [id number] us Trey Diaz DO IMG XR PROCEDURES Final Res ult * XR Spine Thoracic 3 Vw (12/27/2024 10:51 AM CONTROL CLERK REPAIRS) Anatomical Region Laterality Modality Spine N/A Computed Radiogr aphy 12/27/2024 11:2 1 AM CONTROL CLERK REPAIRS Narrative 12/27/2024 11:23 AM CONTROL CLERK REPAIRS EXAM DESCRIPTION: XR SPINE LUMBAR 2 OR 3 VIEWS; XR SPINE THORACIC 3 VIEWS REASON FOR STUDY: acute pain Pain s/p ground level fall at [facility] today TECHNIQUE: Lumbar spine three views, thoracic [...] by Armin Rubio M.D., JR: Report ID: [id number] Reading Location: [id number] Procedure Note Armin Rubio MD - 12/27/2024 EXAM DESCRIPTION: XR SPINE LUMBAR 2 OR 3 VIEWS; XR SPINE THORACIC 3 VIEWS REASON FOR STUDY: acute pain Pain s/p ground level fall at [facility] today TECHNIQUE: Lumbar spine three views, thoracic [...] by Armin Rubio M.D. JR: Report ID: [id number] Reading Location: [id number] [id number] us Trey Diaz DO IMG XR PROCEDURES Final Res ult * CT Head WO Contrast (12/27/2024 10:34 AM CONTROL CLERK REPAIRS) Anatomical Region Laterality Modality Head and Neck N/A Computed Tomogra phy 12/27/2024 11:0 4 AM CONTROL CLERK REPAIRS Narrative 12/27/2024 11:09 AM CONTROL CLERK REPAIRS EXAM DESCRIPTION: CT HEAD WO CONTRAST REASON FOR STUDY: Head trauma, minor (Age >= 65y) Pt's daughter reports pt was recently diagnosed with MG and fell at [facility]. Has pain to back of head, [...] Cheo Stover M.D. AM: AM Report ID: [id number] Reading Location: [id number] Procedure Note Cheo Stover MD - 12/27/2024 EXAM DESCRIPTION: CT HEAD WO CONTRAST REASON FOR STUDY: Head trauma, minor (Age >= 65y) Pt's [facility] reports [facility] Has pain to back of head, L [...] Cheo Stover M.D. AM: AM Report ID: [id number] Reading Location: [id number] us Trey Diaz DO IMG CT PROCEDURES Final Res ult * Electrocardiogram Report (12/18/2024 8:31 AM CONTROL CLERK REPAIRS) us Wilmar Kraus MD ECG ORDERABLES Final Result from Last 3 Months Insurance MEDICARE [facility] MEDICARE [employer] MEDICARE [facility] Care Teams Phone Triage Specialist Relationship Specialty Start Date End Date Rm Broderick MD [address] [facility] [address] [place] [id number] PCP - General Family Medicine 12/18/24
--- OUTSIDE RECORDS SUMMARY | 2025-02-12 10:19 | XMS_ITS | Clinical Summary ---
Author Organization [facility] Address [address] [facility] [place] [address] Care Team Providers Care Senior Java Software Engineer Name Role Phone Iliana Gonzalez MD Primary Care Provider + Source Comments [facility],non-owned Affiliates and Associated Physician Practices is amultiple site organization consisting of ambulatory clinics and hospital sitesin [place], [place], [place] and [place]. This disclosure is being madepursuant to the Care Everywhere program and may not contain all information available regarding this patient. Last updated 18.[facility] Allergies Active Allergy Reactions Criticality Noted Date Comments Morphine Rash Medium 10/30/2018 Medications * Be aware that medications may not be up to date on this document. Alwaysverify current medications with the patient. Medication Sig Dispensed Refills Start Date End Date Status levothyroxine (TIROSINT) 100 MCG capsule Take 100 mcg by mouth daily before breakfast Active Aspirin (ASPIR-81 PO) Act antelmo Social History Tobacco Use Types Packs/Day Years Used Date Smoking Tobacco: Never Smokeless Tobacco: Never Sex and Gender Information Value Date Recorded Sex Assigned at Not on file Gender Identity Not on file Sexual Orientation Not on file Last Filed Vital Signs Vital Sign Reading Time Taken Comments Blood Pressure 120/78 10/30/2018 3:38 PM QUALITY ASSURANCE MONITOR FINAL Pulse - - Temperature 36.7 C (98 F) 10/30/2018 3:38 PM QUALITY ASSURANCE MONITOR FINAL Respiratory Rate 16 10/30/2018 3:38 PM QUALITY ASSURANCE MONITOR FINAL Oxygen Saturation 97% 10/30/2018 3:38 PM QUALITY ASSURANCE MONITOR FINAL Inhaled Oxygen Concentration - - Weight 72.6 kg (160 lb) 10/30/2018 3:38 PM QUALITY ASSURANCE MONITOR FINAL Height 171.5 cm (5' 7.5 ) 10/30/2018 3:38 PM QUALITY ASSURANCE MONITOR FINAL Body Mass Index 24.69 10/30/2018 3:38 PM QUALITY ASSURANCE MONITOR FINAL Plan of Treatment Health Maintenance Due Date Last Done Comments BONE DENSITY TESTING 1940 MEDICARE AWV 12 MONTHS 1941 DTAP/TDAP/TD VACCINES (1 - Tdap) 1960 PNEUMOCOCCAL VACCINE 50+ (1 of 1 - PCV) 1991 ZOSTER VACCINE (1 of 2) 1991 Respiratory Syncytial Virus (RSV) Vaccine Pt: or over 60 yrs (1 - 1-dose 75+ series) 2016 COVID-19 VACCINE ( - 2023-2 5 season) 2024 DEPRESSION SCREENING 11/07/2024 INFLUENZA VACCINE (Season Ended) 2025 HEPATITIS B VACCINE Aged Out No longe r eligible based on patient's age to complete this topic HIB VACCINE Aged Out No longer eligi ble based on patient's age to complete this topic HPV VACCINE Aged Out No longer eligi ble based on patient's age to complete this topic MENINGOCOCCAL (Group B) VACC INE SHARED DECISION-MAKING Aged Out No longer eligibl e based on patient's age to complete this topic MENINGOCOCCAL GROUPS A/C/Y/W VACCINE Aged Out No longer eligible b ased on patient's age to complete this topic Care Teams Senior Java Software Engineer Relationship Specialty Start Date End Date Iliana Gonzalez MD [address] [place] [address] [facility] - General 02/25/21
[2025-02-12 10:30] LABS: Anion Gap 6 mmol/L (4-12); Blood Urea Nitrogen 20 mg/dL (7-17); Calcium 9.8 mg/dL (8.4-10.2); Carbon Dioxide 29 mmol/L (22-30); Chloride 103 mmol/L (98-107); Estimated Glomerular Filt Rate > 60; Glucose 94 mg/dL (65-110); Potassium 3.3 mmol/L (3.4-5.0); Sodium 138 mmol/L (137-145)
[2025-02-12 10:33] LABS: Iron 35 ug/dL (37-170)
[2025-02-12 10:43] LABS: Percent Iron Saturation 10 % (20-50)
[2025-02-12 11:08] LABS: Ferritin 9.74 ng/mL (11.1-264)
[2025-02-13 11:44] LABS: CA 15-3 <5 U/mL (<32)
== END 2025-02-12 09:28 | disposition home or self-care (01) ==
LOC: ANHLAB 09:29
PROVIDERS: PCP Family Medicine; Visit Provider Internal Medicine Hematology & Oncology
DX: C50.912 Malignant neoplasm of unspecified site of left female breast (principal); D64.9 Anemia, unspecified; Z17.0 Estrogen receptor positive status [ER+]
CPT/HCPCS: 36415; 80048; 82728; 83540; 83550; 85025; 86300

== ENCOUNTER 2025-03-30 08:33 | Inpatient (IN) | payer MEDICARE, SELFPAY ==
[2025-03-30] VITALS (14 sets, daily range): BP systolic 100–152; BP diastolic 50–76; PULSE 62–86; RESP 16–20; TEMP 36.6–37; O2SAT 95–100; BMI 27.9
--- NOTE | ~2025-03-30 | US_ITS ---
EXAM: ABDOMEN ULTRASOUND HISTORY: LUQ pain COMPARISON: None. FINDINGS: LIVER: The liver is unremarkable in echogenicity and size. GALLBLADDER: Surgically absent. BILE DUCTS: Common bile duct measures 7.1mm. PANCREAS: Limited evaluation of the pancreas secondary to overlying bowel gas SPLEEN: The spleen is unremarkable in echogenicity and size measuring 9.4cm in longitudinal dimension . RIGHT KIDNEY: 9.3 x 5.2 x 4.7 cm No hydronephrosis or renal calculi. The cortex is thin and hyperechoic. LEFT KIDNEY: 10.2 x 6.4 x 5.2 cm No hydronephrosis or renal calculi. The cortex is thin and hyperechoic VASCULATURE : The abdominal aorta is nonaneurysmal. The IVC is patent. IMPRESSION: Evaluation of the pancreas is limited by overlying bowel gas. Findings suggesting medical renal disease. Otherwise, unremarkable sonographic evaluation of the abdomen, as detailed above. Reviewed, dictated and finalized at location A. IMPRESSION: Evaluation of the pancreas is limited by overlying bowel gas. Findings suggesting medical renal disease. Otherwise, unremarkable sonographic evaluation of the abdomen, as detailed erin cortés.
--- OUTSIDE RECORDS SUMMARY | 2025-03-30 08:36 | XMS_ITS | Referral Summary ---
Author Organization [facility] Address [address] [place] [address] Care Team Providers Care Physician Executive Name Role Phone Rm Broderick MD Primary Care Provider Encounters Date Type Department Care Team Description 03/25/2025 Telephone [facility] Cardiology [address] [facility] [address] [place] [phone] Wilmar Kraus MD 03/15/2025 11:25 AM CDT - 03/15/2025 11:59 PM CDT Hospital Encounter [facility] [address] [place] [address] Thoracic spine pain; Neck pain Discharge Disposition: Discharge to home or self care 03/15/2025 10:30 AM CDT Office Visit [facility] Orthopedics and Sports Medicine [address] [place] [address] [address] [place] [phone] Amber Gaspar NP Chronic neck pain; Foraminal stenosis of cervical region, right C3-C4, bilateral C5-C6; Arthropathy of cervical facet joint, bilateral; DDD (degenerative disc disease), cervical, mild C4-C5, severe C5-C6; Anterolisthesis of cervical spine, mild C3-C5; History of fusion of cervical spine C6-C7 (1993); Chronic bilateral thoracic back pain; DDD (degenerative disc disease), thoracic, multilevel; History of thoracic spinal fusion, T10-T12 (1992); Chronic right-sided low back pain with right-sided sciatica; Lumbar facet arthropathy, multilevel, severe bilateral L3-L4 L4-L5 L5-S1; Degeneration of intervertebral disc of lumbar region, L1-L2, L4-L5, L5-S1 with discogenic back pain and lower extremity pain; Degeneration of intervertebral disc of lumbar region, L1-L2 with osteophyte of lumbar vertebra; Retrolisthesis of lumbar vertebrae, grade 1 L1 on L2, L4 on L5; Levoscoliosis of lumbar spine with apex L4-L5; History of lumbar surgery, posterior decompression L4-L5 (1994); Myofascial pain dysfunction syndrome; History of bilateral total hip arthroplasty; Muscle weakness of extremities, upper and lower 02/27/2025 9:24 AM CDT - 02/27/2025 11:59 PM CDT Hospital Encounter [facility] [address] [place] [address] Other closed fracture of distal end of left fibula, initial encounter Discharge Disposition: Discharge to home or self care 02/27/2025 9:30 AM CDT Office Visit [facility] Medical [facility] Orthopedics and Sports Medicine [address] [place] [phone] Anyi Dick PA Other closed fracture of distal end of left fibula with routine healing, subsequent encounter (Primary Dx) 01/18/2025 - 01/18/2025 11:59 PM CDT Hospital Encounter [facility] [employer] [address] [place] [address] Discharge Disposition: Discharge to home or self care 01/16/2025 8:39 AM CDT - 01/16/2025 11:59 PM CDT Hospital Encounter [facility] Imaging [address] [place] [address] Acute left ankle pain Discharge Disposition: Discharge to home or self care 01/16/2025 9:00 AM CDT Office Visit [facility] Medical [facility] Orthopedics and Sports Medicine [address] [place] [phone] Rm Paredes DO Acute left ankle pain (Primary Dx); Other closed fracture of distal end of left fibula, initial encounter from Last 3 Months Allergies Active Allergy [...] a day as needed for pain Active kntrxyax37-skbv- Lmfolate-algal 27 mg iron-1.13 mg-581.92 mg capsule Take 1 tablet by mouth daily Active albuterol HFA (PROVENTIL HFA,VENTOLIN HFA,PROAIR HFA) 90 mcg/actuation inhaler Inhale 2 puffs every 6 (six) hours as needed Active levothyroxine (SYNTHROID) 100 mcg tablet Take 1 tablet (100 mcg total) by mouth scleroscope tester before breakfast Active fluticasone-umec lidin-vilanter (Trelegy Ellipta) [...] (500 mcg total) by mouth daily Active omeprazole (PriLOSEC) 20 mg capsule Take [...] AT BEDTIME NEEDED FOR INSOMNIA 4 Active Hospital, Clinic, or Other Facility Administered Medication Ordered Dose Route Frequency Start Date End Date Status lidocaine (XYLOCAINE) 10 mg/mL (1 %) injection 3 mLIndications:Admini stration of Local Anesthesia 3 mL One-Time Injection 03/15/2025 03/15/2025 Ended triamcinolone (KENALOG) 40 mg/mL injection 120 mgIndications:Myofas cial pain dysfunction syndrome 120 mg One-Time Injection 03/15/2025 03/15/2025 Ended Active Problems Problem Noted Date Diagnosed Date Chest pressure 12/18/2024 History of pulmonary embolism 09/09/2023 Preoperative cardiovascular examination 02/19/20 23 Symptomatic bradycardia 02/18/2023 PSVT (paroxysmal supraventricular tachycardia) [...] on file Legal Sex Female 1:48 AM SHOULDER PAD MOLDER Gender Identity Not on file Sexual Orientation Not on file Last Filed Vital Signs Vital Sign Reading Time Taken Comments Blood Pressure 136/55 12/27/2024 1:00 PM SHOULDER PAD MOLDER Pulse 73 12/27/2024 1:00 PM SHOULDER PAD MOLDER Temperature 36.8 C (98.2 F) 12/27/2024 10:28 AM SHOULDER PAD MOLDER Respiratory Rate 19 12/27/2024 1:00 PM SHOULDER PAD MOLDER Oxygen Saturation 99% 12/27/2024 1:00 PM SHOULDER PAD MOLDER Inhaled Oxygen Concentration - - Weight 78 kg (172 lb) 03/15/2025 10:24 AM CDT Height 170.2 cm (5' 7) 03/15/2025 10:24 AM CDT Body Mass Index 26.94 03/15/2025 10:24 AM CDT Plan of Treatment Not on file Goals Goal Patient Goal Type Associated Problems Recent Progress Patient-Stated? Author CCM Chronic Pain Care Plan Chronic Care Management On track(2020 1:08 PM SHOULDER PAD MOLDER) Joi Navarrete, RN Note: Problem: Chronic Pain Goals: 1. Minimize further functional decline 2. Maximize quality of life 3. Control pain Strategies: - Activity/exercise program recommendation - Conservative stepwise pain medicine strategy with multi-disciplinary approach - Recommend healthy lifestyle strategies and compensatory methods as needed Medical Devices Implanted Type Area Slimer Device Identifier Shelf Expiration Date Model / Serial / Lot Rt Knee Hip B/L Hips Hip Procedures Procedure Name Priority Date/Time Associated Diagnosis Comments XR SPINE CERVICAL W FLEXION AND EXTENSION 6 OR MORE VIEWS Schedule Routine, Read Routine (OP Routine) 03/15/2025 11:35 AM CDT Neck pain XR SPINE THORACIC 3 VIEWS Schedule Routine, Read Routine (OP Routine) 03/15/2025 11:35 AM CDT Thoracic spine pain [place] INJECTION SINGLE/DRAUGHTSMAN TRIGGER POINT 1/2 MUSCLES Routine 03/15/2025 10:30 AM CDT Myofascial pain dysfunction syndrome XR ANKLE LEFT 3 OR MORE VIEWS Schedule Routine, Read Routine (OP Routine) 02/27/2025 9:36 AM CDT Other closed fracture of distal end of left fibula, initial encounter [facility] MR OUTSIDE REFERENCE Routine 01/18/2025 12:00 AM CDT XR ANKLE LEFT 3 OR MORE VIEWS Schedule Routine, Read Routine (OP Routine) 01/16/2025 8:55 AM CDT Acute left ankle pain from Last 3 Months Results * XR Spine Thoracic 3 View (03/15/2025 11:35 AM CDT) Anatomical Region Laterality Modality Spine N/A Computed Radiogr aphy 03/16/2025 11:2 2 PM CDT Narrative 03/16/2025 11:33 PM CDT EXAM DESCRIPTION: XR SPINE THORACIC 3 VIEWS; XR SPINE CERVICAL W FLEXION AND EXTENSION 6 OR MORE VIEWS REASON FOR STUDY: pain Increased pain in neck and upper back since fall in Nov 2024, FINDINGS: Three views thoracic spine and 6 views cervical spine submitted with comparison 12/27/2024. Cervical spine: No acute fracture. No prevertebral soft tissue swelling. Mild retrolisthesis of C5 on C6. Mild C4-C5 and severe C5-C6 degenerative disc disease. C6-C7 fusion present. Bilateral cervical facet osteoarthritis. Flexion-extension views demonstrate mild anterolisthesis of C3-C5 on flexion. Cervical facet osteoarthritis is present. Right-sided C3-C4 and bilateral C5-C6 foraminal impingement. Thoracic spine: Mild dextrocurvature of the thoracic spine. T10-T12 anterior fusion is present. Multilevel thoracic degenerative disc disease. Arterial atherosclerosis is present. IMPRESSION: C6-C7 fusion. Mild C4-C5 and severe C5-C6 degenerative disc disease with bilateral cervical facet osteoarthritis. Right-sided C3-C4 and bilateral C5-C6 foraminal impingement. Mild anterolisthesis of C3-C5 on flexion. T10-T12 anterior fusion. Multilevel thoracic degenerative disc disease. THIS IS AN ELECTRONICALLY VERIFIED FINAL REPORT 03/16/2025 11:33 PM - Electronically signed by Martin Gibson M.D. T: Report ID: [id number] Reading Location: [id number] Procedure Note Martin Gibson MD - 03/16/2025 EXAM DESCRIPTION: XR SPINE THORACIC 3 VIEWS; XR SPINE CERVICAL W FLEXION AND EXTENSION 6 OR MORE VIEWS REASON FOR STUDY: pain Increased pain in neck and upper back since fall in Nov 2024, FINDINGS: Three views thoracic spine and 6 views cervical spine submittedwith comparison 12/27/2024. Cervical spine: No acute fracture. No prevertebral soft tissue swelling. Mildretrolisthesis of C5 on C6. Mild C4-C5 and severe C5-C6 degenerative disc disease.C6-C7 fusion present. Bilateral cervical facet osteoarthritis.Flexion-extension views demonstrate mild anterolisthesis of C3-C5 on flexion. Cervicalfacet osteoarthritis is present. Right-sided C3-C4 and bilateral C5-V1teujobpoc impingement. Thoracic spine: Mild dextrocurvature of the thoracic spine. T10-T12 anterior fusion is present. Multilevel thoracic degenerative disc disease. Arterial atherosclerosis is present. IMPRESSION: C6-C7 fusion. Mild C4-C5 and severe C5-C6 degenerative disc disease with bilateralcervical facet osteoarthritis. Right-sided C3-C4 and bilateral C5-C6 foraminal impingement. Mild anterolisthesis of C3-C5 on flexion. T10-T12 anterior fusion. Multilevel thoracic degenerative disc disease. THIS IS AN ELECTRONICALLY VERIFIED FINAL REPORT 03/16/2025 11:33 PM - Electronically signed by Martin Gibson M.D. T: Report ID: [id number] Reading Location: [id number] Amber Gaspar NP IMG XR PROCEDURES Final Res ult * XR Spine Cervical W Flexion And Extension 6 or More Views (03/15/2025 11:35 AM CDT) Anatomical Region Laterality Modality Spine N/A Computed Radiogr aphy 03/16/2025 11:2 2 PM CDT Narrative 03/16/2025 11:33 PM CDT EXAM DESCRIPTION: XR SPINE THORACIC 3 VIEWS; XR SPINE CERVICAL W FLEXION AND EXTENSION 6 OR MORE VIEWS REASON FOR STUDY: pain Increased pain in neck and upper back since fall in Nov 2024, FINDINGS: Three views thoracic spine and 6 views cervical spine submitted with comparison 12/27/2024. Cervical spine: No acute fracture. No prevertebral soft tissue swelling. Mild retrolisthesis of C5 on C6. Mild C4-C5 and severe C5-C6 degenerative disc disease. C6-C7 fusion present. Bilateral cervical facet osteoarthritis. Flexion-extension views demonstrate mild anterolisthesis of C3-C5 on flexion. Cervical facet osteoarthritis is present. Right-sided C3-C4 and bilateral C5-C6 foraminal impingement. Thoracic spine: Mild dextrocurvature of the thoracic spine. T10-T12 anterior fusion is present. Multilevel thoracic degenerative disc disease. Arterial atherosclerosis is present. IMPRESSION: C6-C7 fusion. Mild C4-C5 and severe C5-C6 degenerative disc disease with bilateral cervical facet osteoarthritis. Right-sided C3-C4 and bilateral C5-C6 foraminal impingement. Mild anterolisthesis of C3-C5 on flexion. T10-T12 anterior fusion. Multilevel thoracic degenerative disc disease. THIS IS AN ELECTRONICALLY VERIFIED FINAL REPORT 03/16/2025 11:33 PM - Electronically signed by Martin CORBIN T: Report ID: [id number] Reading Location: [address] Note Martin Gibson MD - 03/16/2025 EXAM DESCRIPTION: XR SPINE THORACIC 3 VIEWS; XR SPINE CERVICAL W FLEXION AND EXTENSION 6 OR MORE VIEWS REASON FOR STUDY: pain Increased pain in neck and upper back since fall in Nov 2024, FINDINGS: Three views thoracic spine and 6 views cervical spine submittedwith comparison 12/27/2024. Cervical spine: No acute fracture. No prevertebral soft tissue swelling. Mildretrolisthesis of C5 on C6. Mild C4-C5 and severe C5-C6 degenerative disc disease.C6-C7 fusion present. Bilateral cervical facet osteoarthritis.Flexion-extension views demonstrate mild anterolisthesis of C3-C5 on flexion. Cervicalfacet osteoarthritis is present. Right-sided C3-C4 and bilateral C5-D4enhhlgjek impingement. Thoracic spine: Mild dextrocurvature of the thoracic spine. T10-T12 anterior fusion is present. Multilevel thoracic degenerative disc disease. Arterial atherosclerosis is present. IMPRESSION: C6-C7 fusion. Mild C4-C5 and severe C5-C6 degenerative disc disease with bilateralcervical facet osteoarthritis. Right-sided C3-C4 and bilateral C5-C6 foraminal impingement. Mild anterolisthesis of C3-C5 on flexion. T10-T12 anterior fusion. Multilevel thoracic degenerative disc disease. THIS IS AN ELECTRONICALLY VERIFIED FINAL REPORT 03/16/2025 11:33 PM - Electronically signed by Martin Gibson M.D. T: Report ID: [id number] Reading Location: [place] [id number] us Amber Gaspar TRANSMISSION DESIGN ENGINEER IMG XR PROCEDURES Final Res ult * KS INJECTION SINGLE/DRAUGHTSMAN TRIGGER POINT 1/2 MUSCLES (03/15/2025 10:30 AM CDT) Narrative Amber Gaspar NP - 03/15/2025 10:30 AM CDT Amber Gaspar NP 03/17/2025 7:10 AM Trigger Point Injection Performed by: Amber Gaspar NP Authorized by: Amber Gaspar NP Consent Given by: Patient Site marked: the procedure site was marked Timeout: prior to procedure the correct patient, procedure, and site was verified Consent obtained:: Verbal Risks discussed, including, but not limited to:: Pain Alternatives discussed:: Alternative treatment Site/side marked: Yes Indications: Pain and myalgia Location: L thoracic paraspinal and R lumbar paraspinal Local anesthetic: Ethyl chloride spray Ultrasound guidance: No Needle size: 25 G Number of muscles: 1 or 2 Approach: Posterior Medications: 3 mL lidocaine 10 mg/mL (1 %); 120 mg triamcinolone 40 mg/mL Patient tolerance: Patient tolerated the procedure well with no immediate complications us Amber Gaspar TRANSMISSION DESIGN ENGINEER IN CLINIC/BEDSIDE ORDERABLE S Final Result * XR Ankle Left 3 or More Views (02/27/2025 9:36 AM CDT) Anatomical Region Laterality Modality Lower Extremities, Ankle Left Compute d Radiography 03/01/2025 9:19 AM CDT Narrative 03/01/2025 10:19 AM CDT EXAM DESCRIPTION: XR ANKLE LEFT 3 OR MORE VIEWS REASON FOR STUDY: PAIN Fall/fx 11/2024, mild discomfort since fall FINDINGS: Three views of the left ankle are submitted for interpretation and compared to prior 01/16/2025. Moderate pes planus. Plantar calcaneal spur. Tiny ossification versus calcification is present between the distal fibula and lateral talus. 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 IMPRESSION: 1. Unchanged tiny ossification versus calcification between the distal fibula and lateral talus. 2. Pes planus. 3. Midfoot osteoarthritis. THIS IS AN ELECTRONICALLY VERIFIED FINAL REPORT 03/01/2025 10:19 AM - Electronically signed by Tomás Quiros M.D. T: Report ID: [id number] Reading Location: [id number] Procedure Note Tomás Quiros MD - 03/01/2025 EXAM DESCRIPTION: XR ANKLE LEFT 3 OR MORE VIEWS REASON FOR STUDY: PAIN Fall/fx 11/2024, mild discomfort since fall FINDINGS: Three views of the left ankle are submitted for interpretationand compared to prior 01/16/2025. Moderate pes planus. Plantar calcaneal spur. 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 IMPRESSION: 1. Unchanged tiny ossification versus calcification between the distal fibula and lateral talus. 2. Pes planus. 3. Midfoot osteoarthritis. THIS IS AN ELECTRONICALLY VERIFIED FINAL REPORT 03/01/2025 10:19 AM - Electronically signed by Tomás Quiros M.D. T: Report ID: [id number] Reading Location: [id number] us Anyi CAMPA IMG XR PROCEDURES Final Re sult * MSK MR Outside Reference (01/18/2025 12:00 AM CDT) Narrative [id number] - 03/15/2025 8:06 AM CDT This order has been auto-finalized and does not contain a result. us Provider Transcribed Order IMG MRI PROCEDURES Fi nal Result [id number] * XR Ankle Left 3 or More [...] signed by Martin GALAN T: Report ID: [id number] Reading Location: [id number] Procedure Note Martin Hope MD - 01/19/2025 [...] Martin Hope M.D. MJ T: Report ID: [id number] Reading Location: [id number] us Rm Paredes DO IMG XR PROCEDURES Final Result from Last 3 Mon[place] [phone] [facility] MEDICARE hipages Group MEDICARE [facility] Care Teams Physician Executive Relationship Specialty Start Date End Date Rm Broderick MD [address] [facility] [address] [place] [address] PCP - General Family Medicine 12/18/24
--- OUTSIDE RECORDS SUMMARY | 2025-03-30 08:36 | XMS_ITS | Encounter Summary ---
Author Organization [facility] Address [address] [place] [address] Phone Care Team Providers Care Lumber Tripper Name Role Phone Iliana Gonzalez MD Primary Care Provider Rm Broderick MD Primary Care Provider Encounter Details Date Type Department Care Team (Late st Contact Info) Description 01/03/2018 Orders Only [facility] ProviderSharif MD [address] [place] [id number] Social History Tobacco Use Types Packs/Day Years Used Date Smoking Tobacco: Never Assessed Alcohol Use Standard Drinks/Week Comments No 0 (1 standard drink = 0.6 oz pur e alcohol) Comments Unknown Sex and Gender Information Value Date Recorded Sex Assigned at Not on file Legal Sex Female 1:48 AM GAS OPERATIONS ANALYST Gender Identity Not on file Sexual Orientation Not on file documented as of this encounter Plan of Treatment Not on file documented as of this encounter Procedures Procedure Name Priority Date/Time Associated Diagnosis Comments CYTOLOGY 01/03/2018 12:00 AM GAS OPERATIONS ANALYST documented in this encounter Results * CYTOLOGY (01/03/2018 12:00 AM GAS OPERATIONS ANALYST) Narrative 01/03/2018 12:00 AM GAS OPERATIONS ANALYST Ordered by an unspecified provider. Historical Provider LAB CYTOLOGY ORDERABLES F inal Result documented in this encounter Visit Diagnoses Not on filedocumented in this encounter Additional Health Concerns Infection Onset Date Last Indicated Resolved Time COVID: Suspected 09/27/2024 09/27/2024 09/27/2024 6:23 PM GAS OPERATIONS ANALYST documented as of this encounter Care Teams Lumber Tripper Relationship Specialty Start Date End Date Iliana Gonzalez MD [address] [place] [address] PCP - General 03/30/17 12/17/24 Rm Broderick MD [address] [place] [address] PCP - General Family Medicine 12/18/24 documented as of this encounter
--- OUTSIDE RECORDS SUMMARY | 2025-03-30 08:36 | XMS_ITS | Encounter Summary ---
Author Organization [facility] Healthcare Address [address] [place] [address] Care Team Providers Care Applications Development Consultant Name Role Phone Iliana Gonzalez MD Primary Care Provider Rm Broderick MD Primary Care Provider Reason for Visit * Reason Onset Date Comments Pre-Surgical Call 01/20/2022 Encounter Details Date Type Department Care Team (Late st Contact Info) Description 01/20/2022 Telephone [facility] [address] [facility] Advanced [facility] [address] [place] [address] Gurpreet Camp MD [address] [facility] [address] [place] [address] Pre-Surgical Call Social History Tobacco Use Types [...] on file Legal Sex Female 1:48 AM FUNERAL WORKERS Gender Identity Not on file Sexual Orientation Not on file documented as of this encounter Plan of Treatment Not on file documented as of this encounter Goals Goal Patient Goal Type Associated Problems Recent Progress Patient-Stated? Author CCM Chronic Pain Care Plan Chronic Care Management On track(2020 1:08 PM FUNERAL WORKERS) Joi Navarrete, RN Note: Problem: Chronic Pain [...] COVID: Suspected 09/27/2024 09/27/2024 09/27/2024 6:23 PM FUNERAL WORKERS documented as of this encounter Care Teams Applications Development Consultant Relationship Specialty Start Date End Date Iliana Gonzalez MD [address] [place] [address] PCP - General 03/30/17 12/17/24 Rm Broderick MD [address] [place] [address] PCP - General Family Medicine 12/18/24 documented as of this encounter
--- OUTSIDE RECORDS SUMMARY | 2025-03-30 08:36 | XMS_ITS | Clinical Summary ---
Author Organization [facility] Michele Marcial Address [address] [place] [address] Care Team Providers Care Elementary Teacher Name Role Phone Rm Broderick MD Primary Care Provider [phone] Allergies Active Allergy Reactions Criticality Noted Date Comments Morphine Rash Medium 10/30/2018 Medications aspirin (MARIPOSA CHEWABLE) 81 mg Tablet, Chewable Take by mouth. Activ e acetaminophen (TYLENOL) 500 mg tablet Take 1,000 mg by mouth. Active famotidine (PEPCID) 40 mg tablet Take 40 mg by mouth. Active fluticasone-um eclidinium-zelalem anterol (Trelegy Ellipta) 100-62.5-25 mcg Disk with Device Take 1 Puff by inhalation daily. Active fluticasone furoate-vilant Mason (BREO ELLIPTA) 100-25 mcg/dose Disk with Device Take 1 Puff by inhalation daily. Active levothyroxine 100 mcg tablet Take 100 mcg by mouth. Active berpizru97-nvv c-Yuuilwcp-ynu al 27 mg iron-1.13 mg-581.92 mg Capsule Take by mouth. Activ e gabapentin (NEURONTIN) 100 mg capsule Take 200 mg by mouth 3 times daily. Active vibegron (Gemtesa) 75 mg Tablet Take [...] FOR SHORTNESS OF BREATH OR WHEEZING Active predniSONE (DELTASONE) 20 mg tablet Take 40 mg by mouth daily. Active pyRIDostigmine (MESTINON) 60 mg tablet Take 60 mg by mouth 3 times daily. 5 Active anastrozole (ARIMIDEX) 1 mg tablet Take 1 Tablet (1 mg) by mouth daily. 90 Tablet 3 5 Active apixaban (Eliquis) 2.5 mg tablet Take 1 Tablet (2.5 mg) by mouth 2 times daily. 60 Tablet 3 5 Active Eliquis 2.5 mg tablet TAKE 1 TABLET(2.5 MG) BY MOUTH TWICE DAILY 60 Tablet 3 4 03/04/20 25 Discontinu ed(Reorder ) Active Problems No known active problems Encounters Date Type Department Care Team Description 03/26/2025 External Device Data STL ABSTRACTION Provider, Abstract 03/21/2025 Telephone [facility] Oncology and Hematology [facility] [address] [place] [address] Carlos Desouza MD Surgical Clearance 03/04/2025 Refill [facility] Oncology and Hematology [facility] [address] [place] [address] Jenni Menezes MD 02/24/2025 Refill [facility] Oncology and Hematology Abiodun Rodriguez [address] [facility] [address] [place] [phone] Samanta Gaxiola MD 02/22/2025 Refill [facility] Oncology and Hematology - [place] [address] [place] [address] Carlos Desouza MD 02/15/2025 11:30 AM CDT Office Visit [facility] Oncology and Hematology [facility] [address] [place] [address] Carlos Desouza MD Malignant neoplasm of left breast in female, estrogen receptor positive, unspecified site of breast (CMS/HCC) (Primary Dx); Chronic anemia; Visit for screening mammogram; Iron deficiency anemia, unspecified iron deficiency anemia type 02/12/2025 Orders Only [facility] Oncology and Hematology - [place] [address] [place] [address] Carlos Desouza MD from Last 3 Months Family History Medical [...] on file 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 Gender Identity Not on file Sexual Orientation Not on file Last Filed Vital Signs Vital Sign Reading Time Taken Comments Blood Pressure 118/69 02/15/2025 11:31 AM CDT Pulse 80 02/15/2025 11:31 AM CDT Temperature 36 C (96.8 F) 02/15/2025 11:31 AM CDT Respiratory Rate 15 02/15/2025 11:31 AM CDT Oxygen Saturation 93% 02/15/2025 11:31 AM CDT Inhaled Oxygen Concentration - - Weight 78.5 kg (173 lb) 02/15/2025 11:31 AM CDT Height 167.6 cm (5' 6) 10/10/2023 11:24 AM INDUSTRIAL MAINTENANCE TECHNICIAN Body Mass Index 27.92 10/10/2023 11:24 AM INDUSTRIAL MAINTENANCE TECHNICIAN Plan of Treatment Upcoming Encounters Date Type Department Care Team (Late st Contact Info) Description 06/21/2025 11:45 AM CDT Office Visit [facility] Oncology and Hematology - [place] [address] [place] [address] Carlos Desouza MD [address] [facility] [address] [place] [address] Health Maintenance Due Date Last Done Comments DTAP/TDAP/TD VACCINES (1 - Tdap) 1960 PNEUMOCOCCAL VACCINE 50+ YEA RS (1 of 2 - PCV) 1960 ZOSTER VACCINE (1 of 2) 1991 RSV VACCINE (60+ or ) (1 - 1-dose 75+ series) 2016 INFLUENZA VACCINE (#1) 2024 OSTEOPOROSIS SCREENING 11/23/2028 11/23/2023 COLORECTAL SCREENING Discontinued 12/21/2019, 12/21/19 20 Colorectal Cancer Screening Discontinued FIT-DNA Q 3 years Discontinued FIT/FOBT Q 1 year Discontinued Flex Sig/CT Colonography Q 5 years Discontinued Procedures Procedure Name Priority Date/Time Associated Diagnosis Comments IRON LEVEL Routine 02/12/2025 4:19 PM CDT from Last 3 Months Results * IRON LEVEL (02/12/2025 4:19 PM CDT) Blood Carlos Desouza MD CHEMISTRY ORDERABLES Final Resu lt from Last 3 Months Insurance GENERIC PAYOR MEDICARE PART A AND B Care Teams Elementary Teacher Relationship Specialty Start Date End Date Rm Broderick MD [address] [facility] [address] [facility] [address] [place] [address] PCP - General Family Practice 02/15/25
--- OUTSIDE RECORDS SUMMARY | 2025-03-30 08:36 | XMS_ITS | Clinical Summary ---
Author Organization [facility] [place] Address [address] [facility] [place] [address] Care Team Providers Care Deputy Clerk Name Role Phone Iliana Gonzalez MD Primary Care Provider + Source Comments [facility] [place],non-owned Affiliates and Associated Physician Practices is amultiple site organization consisting of ambulatory clinics and hospital sitesin [place], [place], [place] and [place]. This disclosure is being madepursuant to the Care Everywhere program and may not contain all information available regarding this patient. Last updated 18.[facility] [place] Allergies Active Allergy Reactions Criticality Noted Date Comments Morphine Rash Medium 10/30/2018 Medications * Be aware that medications may not be up to date on this document. Alwaysverify current medications with the patient. 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 Gender Identity Not on file Sexual Orientation Not on file Last Filed Vital Signs Vital Sign Reading Time Taken Comments Blood Pressure 120/78 10/30/2018 3:38 PM CLAY DIGGER Pulse - - Temperature 36.7 C (98 F) 10/30/2018 3:38 PM CLAY DIGGER Respiratory Rate 16 10/30/2018 3:38 PM CLAY DIGGER Oxygen Saturation 97% 10/30/2018 3:38 PM CLAY DIGGER Inhaled Oxygen Concentration - - Weight 72.6 kg (160 lb) 10/30/2018 3:38 PM CLAY DIGGER Height 171.5 cm (5' 7.5) 10/30/2018 3:38 PM CLAY DIGGER Body Mass Index 24.69 10/30/2018 3:38 PM CLAY DIGGER Plan of Treatment Health Maintenance Due Date [...] on patient's age to complete this topic Insurance MEDICARE MEDICARE MEDICARE MEDICARE MEDICARE MEDICARE Member Subscriber Plan / Payer (Ef fective for All Dates) Name:Izaiah Neha Member ID:[id number] Relation to Subscriber:Self Name:KelleyrosalvaEla cheungne Subscriber ID:[id number] Payer ID:Not on file Group ID:Not on file Type:Medicare Address: [place] [phone] MEDICARE SUPPLEMENT PAYOR GENERIC * Guarantor: PHIL BLISS Account Type Relation to Patient Date of Phone Billing Address Personal/Family [address] [place] [phone] MEDICARE MEDICARE SUPPLEMENT PAYOR GENERIC * Guarantor: PHIL BLISS Account Type Relation to Patient Date of Phone Billing Address Personal/Family [address] [place] [address] MEDICARE MEDICARE SUPPLEMENT PAYOR GENERIC * Guarantor: PHIL BLISS Account Type Relation to Patient Date of Phone Billing Address Personal/Family [address] [place] [phone] MEDICARE Member Subscriber Plan / Payer (Ef fective for All Dates) Name:Neha Bliss Member ID:[id number] Relation to Subscriber:Self Name:Neha Bliss Subscriber ID:[id number] Payer ID:Not on file Group ID:Not on file Type:Medicare Address: [place] [phone] MEDICARE SUPPLEMENT PAYOR GENERIC Care Teams Deputy Clerk Relationship Specialty Start Date End Date Iliana Gonzalez MD [address] [place] [address] PCP - General 02/25/21
--- OUTSIDE RECORDS SUMMARY | 2025-03-30 08:36 | XMS_ITS | Clinical Summary ---
Author Organization [facility] Address [address] [place] [address] Care Team Providers Care Supervisor Pipe Finishing Name Role Phone Rm Broderick MD Primary [...] a day as needed for pain Active dmltyzsm73-coeo- Lmfolate-algal 27 mg iron-1.13 mg-581.92 mg capsule Take 1 tablet by mouth daily Active albuterol HFA (PROVENTIL HFA,VENTOLIN HFA,PROAIR HFA) 90 mcg/actuation inhaler Inhale 2 puffs every 6 (six) hours as needed Active levothyroxine (SYNTHROID) 100 mcg tablet Take 1 tablet (100 mcg total) by mouth study hall supervisor before breakfast Active fluticasone-umec lidin-vilanter (Trelegy Ellipta) [...] Type Department Care Team Description 03/25/2025 Telephone [facility] Cardiology [address] [place] [address] Wilmar Kraus MD 03/15/2025 11:25 AM CDT - 03/15/2025 11:59 PM CDT Hospital Encounter [facility] [address] [place] [address] Thoracic spine pain; Neck pain Discharge Disposition: Discharge to home or self care 03/15/2025 10:30 AM CDT Office Visit [facility] Orthopedics and Sports Medicine [facility] [facility] [address] [place] [address] Amber Gaspar, NIURKA Chronic neck pain; Foraminal stenosis of cervical [...] weakness of extremities, upper and lower 02/27/2025 9:30 AM CDT Office Visit [facility] Medical [facility] Orthopedics and Sports Medicine [address] [place] [phone] Anyi Dick PA Other closed fracture of distal end of left fibula with routine healing, subsequent encounter (Primary Dx) 02/27/2025 9:24 AM CDT - 02/27/2025 11:59 PM CDT Hospital Encounter [facility] [address] [place] [address] Other closed fracture of distal end of left fibula, initial encounter Discharge Disposition: Discharge to home or self care 01/18/2025 - 01/18/2025 11:59 PM CDT Hospital Encounter [facility] [employer] [address] [place] [address] Discharge Disposition: Discharge to home or self care 01/16/2025 9:00 AM CDT Office Visit [facility] Orthopedics and Sports Medicine [address] [place] [phone] Rm Paredes DO Acute left ankle pain (Primary Dx); Other closed fracture of distal end of left fibula, initial encounter 01/16/2025 8:39 AM CDT - 01/16/2025 11:59 PM CDT Hospital Encounter [facility] [address] [place] [address] Acute left ankle pain Discharge Disposition: Discharge to home or self care from Last 3 Months Surgical History Surgery [...] on file Legal Sex Female 1:48 AM TOWN ADMINISTRATOR Gender Identity Not on file Sexual Orientation Not on file Obstetrics History Last Filed Vital Signs Vital Sign Reading Time Taken Comments Blood Pressure 136/55 12/27/2024 1:00 PM TOWN ADMINISTRATOR Pulse 73 12/27/2024 1:00 PM TOWN ADMINISTRATOR Temperature 36.8 C (98.2 F) 12/27/2024 10:28 AM TOWN ADMINISTRATOR Respiratory Rate 19 12/27/2024 1:00 PM TOWN ADMINISTRATOR Oxygen Saturation 99% 12/27/2024 1:00 PM TOWN ADMINISTRATOR Inhaled Oxygen Concentration - - Weight 78 kg (172 lb) 03/15/2025 10:24 AM CDT Height 170.2 cm (5' 7) 03/15/2025 10:24 AM CDT Body Mass Index 26.94 03/15/2025 10:24 AM CDT Plan of Treatment Health Maintenance [...] Chronic Care Management On track(2020 1:08 PM TOWN ADMINISTRATOR) Joi Navarrete, RN Note: Problem: Chronic Pain Goals: 1. Minimize further functional decline 2. Maximize quality of life 3. Control pain Strategies: - Activity/exercise program recommendation - Conservative stepwise pain medicine strategy with multi-disciplinary approach - Recommend healthy lifestyle strategies and compensatory methods as needed Medical Devices Implanted Type Area Applique Sewer Device Identifier Shelf Expiration Date Model / [...] 03/15/2025 11:35 AM CDT Thoracic spine pain [place] INJECTION SINGLE/SILVICULTURE FORESTER TRIGGER POINT 1/2 MUSCLES Routine 03/15/2025 10:30 [...] by Martin Gibson M.D. T: Report ID: [id number] Reading Location: [place] [address] Procedure Note Martin Gibson MD - 03/16/2025 [...] osteoarthritis is present. Right-sided C3-C4 and bilateral C5-B2tjxdnzher impingement. Thoracic spine: Mild dextrocurvature of the [...] by Martin Gibson M.D. T: Report ID: [id number] Reading Location: [place] [address] us Amber Gaspar NP IMG XR PROCEDURES Final [...] by Martin Gibson M.D. T: Report ID: [id number] Reading Location: [id number] Procedure Note Martin Gibson MD - 03/16/2025 [...] osteoarthritis is present. Right-sided C3-C4 and bilateral C5-Y6xwklljxbm impingement. Thoracic spine: Mild dextrocurvature of the [...] by Martin Gibson M.D. T: Report ID: [id number] Reading Location: [id number] Amber Gaspar NP IMG XR PROCEDURES Final Res ult * AZ INJECTION SINGLE/SILVICULTURE FORESTER TRIGGER POINT 1/2 MUSCLES (03/15/2025 10:30 AM [...] the procedure well with no immediate complications Amber Gaspar ENGINEERING PATTERNMAKER IN CLINIC/BEDSIDE ORDERABLE S Final Result * [...] by Tomás Quiros M.D. T: Report ID: [id number] Reading Location: [id number] Procedure Note Tomás Quiros MD - 03/01/2025 [...] by Tomás Quiros M.D. T: Report ID: [id number] Reading Location: [place] [address] Anyi CAMPA IMG XR PROCEDURES Final Re sult * MSK MR Outside Reference (01/18/2025 12:00 AM CDT) Narrative YARELY_BETO_MHB_MHE - 03/15/2025 8:06 AM CDT This order has been auto-finalized and does not contain a result. us Provider Transcribed Order IMG MRI PROCEDURES Fi nal Result RAD_CLARIO_MHB_MHE * XR Ankle Left 3 or More [...] signed by Martin GALAN T: Report ID: [id number] Reading Location: [place] [address] Procedure Note Martin Hope MD - 01/19/2025 [...] signed by Martin GALAN T: Report ID: [id number] Reading Location: [id number] us Rm Parekhyunier DO IMG XR PROCEDURES Final Result from Last 3 Months Insurance MEDICARE [facility] MEDICARE [employer] MEDICARE [facility] Care Teams Supervisor Pipe Finishing Relationship Specialty Start Date End Date Rm Broderick MD [address] [facility] [address] [address] PCP - General Family Medicine 12/18/24
--- OUTSIDE RECORDS SUMMARY | 2025-03-30 08:36 | XMS_ITS | Encounter Summary ---
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 Gender Identity Not on file Sexual Orientation Not on file documented as of this encounter Plan of Treatment Upcoming Encounters Date Type Department Care Team (Late st Contact Info) Description 06/21/2025 11:45 AM CDT Office Visit [facility] Oncology and Hematology - [place] [address] [place] [address] [address] [place] [phone] Carlos Desouza MD [address] [facility] [address] [place] [address] documented as of this encounter Visit Diagnoses Not on filedocumented in this encounter Care Teams Party Planner Relationship Specialty Start Date End Date Rm Broderick MD [address] [facility] [address] [place] [phone] PCP - General Family Practice 02/15/25 documented as of this encounter
--- NOTE | 2025-03-30 09:17 | ED.GENADULT ---
HPI - General Adult General Chief complaint: Unspecified Stated complaint: to be admitted to the hospital per Dr Esquivel Time Seen by Provider: 03/30/25 09:07 History of Present Illness HPI narrative: 84-year-old female with history of myasthenia gravis follow-up with neurology present to the emergency department for evaluation for increased fatigue that does feel similar to her previous myasthenia gravis. At time of evaluation patient denies any chest pain or shortness of breath. Patient states she does have exertional shortness of breath. Patient has had outpatient follow-up with Neurology and patient was referred to the emergency department for dissipated admission for IVIG. Patient did have recent diagnosis of anemia with low iron binding capacity and patient was treated with a iron infusion. Related Data Home Medications ?Medication ?Instructions ?Recorded ?Confirmed ?Last Taken ?Type aspirin 81 mg tablet,delayed 81 mg PO DAILY 09/20/19 03/30/25 03/19/25 10:00 History release 81 mg acetaminophen 650 mg 650 mg PO Q8H PRN Pain 04/13/23 03/30/25 04/02/24 History tablet,extended release (Tylenol 8 Hour) Lactobacillus 1 cap PO DAILY 10/07/23 03/30/25 03/29/25 08:00 History acidophilus-Bifidobac.animalis 2.5 1 cap billion cell capsule (Daily Probiotic) docusate sodium 100 mg capsule 100 mg PO DAILY 10/07/23 03/30/25 03/29/25 08:00 History (Stool Softener) 100 mg anastrozole 1 mg tablet 1 mg PO DAILY 01/27/24 03/30/25 03/27/25 08:00 History 1 mg apixaban 5 mg tablet (Eliquis) 2.5 mg PO BID 03/26/24 03/30/25 03/26/25 20:00 History 2.5 mg cholecalciferol (vitamin D3) 125 125 mcg PO DAILY 03/26/24 03/30/25 03/30/25 08:00 History mcg (5,000 unit) tablet (Vitamin 125 mcg D3) fluticasone fur. 100 mcg-umeclid 1 inh inhalation DAILY PRN 03/26/24 03/30/25 03/29/25 08:00 History 62.5 mcg-vilant 25 mcg Shortness Of Breath Or Wheezing 1 inh inhalat.powder (Trelegy Ellipta) vibegron 75 mg tablet (Gemtesa) 75 mg PO DAILY 05/19/24 03/30/25 03/27/25 08:00 History 75 mg docusate sodium 100 mg capsule 100 mg PO DAILY 03/30/25 03/30/25 03/27/25 08:00 History 100 mg ferrous sulfate 325 mg (65 mg 325 mg PO DAILY 03/30/25 03/30/25 03/27/25 08:00 History iron) tablet (Iron (ferrous 325 mg sulfate)) multivitamin (Daily Multi-Vitamin 1 tablet PO DAILY 03/30/25 03/30/25 03/27/25 08:00 History tablet) 1 tablet Allergies Allergy/AdvReac Type Severity Reaction Status Date / Time meperidine Allergy Severe stroke Verified 03/25/25 12:36 like sx morphine Allergy Severe Anaphylaxis Verified 03/25/25 12:36 gabapentin AdvReac Intermediate Confusion Verified 03/25/25 12:36 hydromorphone (From Dilaudid) AdvReac Intermediate Vomiting Verified 03/25/25 12:36 Review of Systems Review of Systems: All systems reviewed & are unremarkable except as noted in HPI and below PMFSH Past Medical History Medical History (Updated 03/30/25 @ 13:03 by Dea Astudillo PA-C) 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 Chronic anemia status post iron infusion Asthma Overactive bladder Arthritis Cerebrovascular accident involving cerebellum Deep venous thrombosis Pulmonary emboli (04/2023) Mitral valve regurgitation Incontinence of urine Generalized myasthenia gravis Lumbar spondylolysis Cervical spondylosis Barretts esophagus Nonerosive esophageal reflux disease Ventral hernia Overweight (BMI 25.0-29.9) Transient cerebral ischemia Chronic gastritis without bleeding Allergic rhinitis Chronic sinusitis Hiatal hernia without gangrene and obstruction Mixed hyperlipidemia Pancreatic cyst Postoperative hypothyroidism Surgical History Surgical History (Updated 03/30/25 @ 12:50 by Dea Astudillo PA-C) History of lumpectomy of left breast (09/2023) History of arthroplasty of right knee History of bilateral hip arthroplasty History of appendectomy 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 History of cystoscopy History of partial thyroidectomy History of incisional hernia repair History of colon surgery History of discectomy History of lumbar fusion History of fusion of cervical spine History of cholecystectomy History of bilateral hip replacements History of right knee joint replacement Family History Family History Father Patient's father is Family history of tuberculosis, Onset Age: 72 Diabetes mellitus Mother Family history of cardiomyopathy Family history of elevated blood lipids Hypertension Sibling Diabetes mellitus Hypertension Cerebrovascular accident Thyroid disorder Heart problem Social History Social History (Updated 03/30/25 @ 12:52 by Dea Astudillo PA-C) Social History: Surrogate medical decision maker: Janette Bliss, daughter ([phone]). Code status: Modified code, no intubation. Smoking status: Never smoker Second hand tobacco smoke exposure: No Alcohol intake: never Substance use: never Substance use type: does not use Do You Feel Safe in your Home?: Yes Lack of Transportation: No Lack of Food: Never True Current Housing: I Have Housing Concerned About Future Housing: No Difficulty Paying Gas/Electric Bills: No Difficulty Paying for Meds: No Currently Unemployed: No Education: High School Diploma/GED Difficulty w/ Childcare or Family Care: No Living arrangements: alone Additional living arrangements comments: . Lives in [place]. Occupation/Education: retired Spiritual care concerns: No Exam Narrative: APPEARANCE: Well appearing, no pain, no distress, well-nourished. HEAD: normocephalic, atraumatic. EYES: PERRLA/EOMI, conjunctivae clear. NOSE: Normal no drainage EARS:TMS clear with good light reflex. THROAT: Pharynx clear, no exudate. NECK: Supple. No adenopathy, no masses. RESPIRATORY: Airway patent, respirations nonlabored. Clear to auscultation bilaterally, no rales, rhonchi, wheezing. CARDIOVASCULAR: Regular rate and rhythm without murmurs rubs or gallops. ABDOMINAL: Soft, nontender, nondistended, normal bowel sounds MUSCULOSKELETAL: Moves all extremities. Strength/ROM intact, No edema, No calf tenderness. NEURO: Alert. Cranial nerves II through XII intact. Good gait. Good coordination SKIN: Warm, dry. Normal Color Course Vital Signs Vital signs: Vital Signs Temperature 97.8 F 03/30/25 09:01 Pulse Rate 81 03/30/25 09:01 Respiratory Rate 16 03/30/25 09:01 Blood Pressure 100/50 L 03/30/25 09:01 Pulse Oximetry 100 03/30/25 09:01 Oxygen Delivery Room Air 03/30/25 09:01 Temperature 97.9 F 03/30/25 11:38 Pulse Rate 73 03/30/25 12:00 Respiratory Rate 20 03/30/25 12:00 Blood Pressure 139/73 03/30/25 11:38 Pulse Oximetry 98 03/30/25 12:00 Oxygen Delivery Room Air 03/30/25 12:00 Medical Decision Making MDM Narrative Medical decision making narrative: 84-year-old female presents emergency department for evaluation for increased weakness. Patient is currently afebrile with no leukocytosis and hemoglobin of 13.5. Patient does have a creatinine of 0.92 which is increased from her baseline 0.7. No other major abnormalities on her CMP. Case is discussed with Dr. Esquivel and he did confirm that he wanted the patient admitted for IVIG. Case was discussed with hospitalist patient was accepted for admission. Patient family were updated on the results of workup and plan for admission. Patient was in no respiratory distress and had no respiratory complaints at time of admission. Patient was admitted to the IMU Differential Diagnosis Differential Diagnosis: Myasthenia gravis, anemia, dehydration, fatigue, UTI Vital Signs Vital Signs: Vital Signs Temperature 97.8 F 03/30/25 09:01 Pulse Rate 81 03/30/25 09:01 Respiratory Rate 16 03/30/25 09:01 Blood Pressure 100/50 L 03/30/25 09:01 Pulse Oximetry 100 03/30/25 09:01 Oxygen Delivery Room Air 03/30/25 09:01 Temperature 97.9 F 03/30/25 11:38 Pulse Rate 73 03/30/25 12:00 Respiratory Rate 20 03/30/25 12:00 Blood Pressure 139/73 03/30/25 11:38 Pulse Oximetry 98 03/30/25 12:00 Oxygen Delivery Room Air 03/30/25 12:00 Lab Data Lab results reviewed: Yes I reviewed the patient's lab results. 03/30/25 09:22 03/30/25 09:22 Labs: Lab Results 03/30/25 Range/Units 09:22 WBC 6.8 (4.5-10.0) K/mm3 RBC 4.49 (4.2-5.4) M/mm3 Hgb 13.5 (12.0-15.0) g/dL Hct 43.5 (37.0-47.0) % MCV 96.9 (80-100) fl MCH 30.1 (26-34) pg MCHC 31.0 L (32-36) g/dl RDW 18.6 H (11.5-14.5) % Plt Count 231 (150-375) k/mm3 MPV 10.7 H (7.4-10.4) fl Immature Gran % (Auto) 2.1 H (0-0.5) % Neut % (Auto) 80.7 H (45.5-73.1) % Lymph % (Auto) 10.4 L (18.3-44.2) % [place] % (Auto) 5.9 (2.6-8.5) % Eos % (Auto) 0.6 (0-4.4) % Baso % (Auto) 0.3 (0.2-1.2) % Lymph # (Auto) 0.70 L (0.9-3.2) K/mm3 [place] # (Auto) 0.4 (0.1-0.6) K/mm3 Eos # (Auto) 0.0 (0-0.3) K/mm3 Baso # (Auto) 0.0 (0.0-0.1) K/mm3 Abs Immat Gran (auto) 0.14 H (0.00-0.031) K/mm3 Absolute Neuts (auto) 5.5 (1.3-6.7) K/mm3 Absolute Nucleated RBC 0.000 (0.0-0.012) K/mm3 Nucleated RBC % 0.0 (0.0-0.2) % PT 12.3 (11.1-14.7) Seconds INR 0.9 APTT 22.1 L (22.3-36.8) Seconds Sodium 139 (137-145) mmol/L Potassium 3.5 (3.4-5.0) mmol/L Chloride 105 (98-107) mmol/L Carbon Dioxide 27 (22-30) mmol/L Anion Gap 7 (4-12) mmol/L BUN 24 H (7-17) mg/dL Creatinine 0.92 (0.7-1.0) mg/dL Estim Creat Clear Calc 45 ml/min Estimated GFR 58 L (59 - ) Glucose 121 H (65-110) mg/dL Calcium 9.3 (8.4-10.2) mg/dL Total Bilirubin 0.5 (0.2-1.3) mg/dL AST 40 H (14-36) U/L ALT 32 (6-35) U/L Alkaline Phosphatase 24 L (38-126) U/L Total Protein 7.0 (6.3-8.2) g/dL Albumin 4.3 (3.5-5.1) g/dL Discharge Plan Discharge Clinical Impression: Myasthenia gravis, Generalized weakness Patient Disposition: Still a Patient Condition: Serious
--- OUTSIDE RECORDS SUMMARY | 2025-03-30 09:21 | XMS_ITS | Encounter Summary ---
Author Organization [facility] Address [address] [place] [address] Phone Care Team Providers Care Er Manager Name Role Phone Iliana Gonzalez MD Primary Care Provider Rm Broderick MD Primary Care Provider Encounter Details Date Type Department Care Team (Late st Contact Info) Description 01/03/2018 Orders Only [facility] ProviderSharif MD [address] [place] [id number] Social History Tobacco Use Types Packs/Day Years Used Date Smoking Tobacco: Never Assessed Alcohol Use Standard Drinks/Week Comments No 0 (1 standard drink = 0.6 oz pur e alcohol) Comments Unknown Sex and Gender Information Value Date Recorded Sex Assigned at Not on file Legal Sex Female 1:48 AM HVAC R INSTRUCTOR Gender Identity Not on file Sexual Orientation Not on file documented as of this encounter Plan of Treatment Not on file documented as of this encounter Procedures Procedure Name Priority Date/Time Associated Diagnosis Comments CYTOLOGY 01/03/2018 12:00 AM HVAC R INSTRUCTOR documented in this encounter Results * CYTOLOGY (01/03/2018 12:00 AM HVAC R INSTRUCTOR) Narrative 01/03/2018 12:00 AM HVAC R INSTRUCTOR Ordered by an unspecified provider. Historical Provider LAB CYTOLOGY ORDERABLES F inal Result documented in this encounter Visit Diagnoses Not on filedocumented in this encounter Additional Health Concerns Infection Onset Date Last Indicated Resolved Time COVID: Suspected 09/27/2024 09/27/2024 09/27/2024 6:23 PM HVAC R INSTRUCTOR documented as of this encounter Care Teams Er Manager Relationship Specialty Start Date End Date Iliana Gonzalez MD [address] [place] [address] PCP - General 03/30/17 12/17/24 Rm Broderick MD [address] [place] [address] PCP - General Family Medicine 12/18/24 documented as of this encounter
--- OUTSIDE RECORDS SUMMARY | 2025-03-30 09:21 | XMS_ITS | Clinical Summary ---
Author Organization [facility] Address [address] [place] [address] Care Team Providers Care Stock Clerk Self Service Store Name Role Phone Rm Broderick MD Primary Care Provider [phone] Allergies Active Allergy Reactions Criticality Noted Date [...] tablet Take 100 mcg by mouth. Active -puo [id number]-[id number] al 27 mg iron-1.13 mg-581.92 mg Capsule [...] Data STL ABSTRACTION Provider, Abstract 03/21/2025 Telephone [facility] [address] [place] [address] Carlos Desouza MD Surgical Clearance 03/04/2025 Refill [facility] [address] [place] [address] Jenni Menezes MD 02/24/2025 Refill [facility] Oncology and Hematology Abiodun Rodriguez [address] [facility] [address] [place] [phone] Samanta Gaxiola MD 02/22/2025 Refill [facility] - [place] [address] [place] [address] Carlos Desouza MD 02/15/2025 11:30 AM CDT Office Visit [facility] [address] [place] [address] Carlos Desouza MD Malignant neoplasm of left breast in female, estrogen receptor positive, unspecified site of breast (CMS/HCC) (Primary Dx); Chronic anemia; Visit for screening mammogram; Iron deficiency anemia, unspecified iron deficiency anemia type 02/12/2025 Orders Only [facility] - [place] [address] [place] [address] Carlos Desouza MD from Last [...] on file Legal Sex Female 3:16 AM BUSINESS SYSTEMS ANALYST Gender Identity Not on file Sexual [...] 167.6 cm (5' 6) 10/10/2023 11:24 AM BUSINESS SYSTEMS ANALYST Body Mass Index 27.92 10/10/2023 11:24 AM BUSINESS SYSTEMS ANALYST Plan of Treatment Upcoming Encounters Date Type Department Care Team (Late st Contact Info) Description 06/21/2025 11:45 AM CDT Office Visit [facility] - [place] [address] [place] [address] Carlos Desouza MD [address] [facility] [address] [place] [address] Health Maintenance Due Date Last [...] MEDICARE PART A AND B Care Teams Stock Clerk Self Service Store Relationship Specialty Start Date End Date Rm Broderick MD [address] [facility] [address] [facility] [address] [place] [address] PCP - General Family Practice 02/15/25
--- OUTSIDE RECORDS SUMMARY | 2025-03-30 09:21 | XMS_ITS | Encounter Summary ---
Author Organization [facility] Address [address] [facility] Attn: Epic Prelude ADT [place] [address] Care Team Providers Care Fabric Awning Repairer Name Role Phone Rm Broderick MD Primary Care Provider Encounter Details Date Type Department Care Team (Late st Contact Info) Description 01/10/1999 Outpatient Historical Social History Tobacco Use Types Packs/Day Years Used Date Smoking Tobacco: Never Assessed Comments Unknown Sex and Gender Information Value Date Recorded Sex Assigned at Not on file Legal Sex Female 3:16 AM INSERTING OPERATOR Gender Identity Not on file Sexual Orientation Not on file documented as of this encounter Plan of Treatment Upcoming Encounters Date Type Department Care Team (Late st Contact Info) Description 06/21/2025 11:45 AM CDT Office Visit [facility] Oncology and Hematology - [place] [address] [place] [address] [address] [place] [phone] Carlos Desouza MD [address] [facility] [address] [place] [address] documented as of this encounter Visit Diagnoses Not on filedocumented in this encounter Care Teams Fabric Awning Repairer Relationship Specialty Start Date End Date Rm Broderick MD [address] [email or web address] [address] [place] [phone] PCP - General Family Practice 02/15/25 documented as of this encounter
--- OUTSIDE RECORDS SUMMARY | 2025-03-30 09:21 | XMS_ITS | Encounter Summary ---
Author Organization [facility] Address [address] [place] [address] Care Team Providers Care Rod Piler Name Role Phone Iliana Gonzalez MD Primary Care Provider Rm Broderick MD Primary Care Provider Reason for Visit * Reason Onset Date Comments Pre-Surgical Call 01/20/2022 Encounter Details Date Type Department Care Team (Late st Contact Info) Description 01/20/2022 Telephone [facility] [address] [facility] [address] [place] [address] Gurpreet Camp MD [address] [facility] [address] [place] [address] Pre-Surgical Call Social History Tobacco Use Types [...] on file Legal Sex Female 1:48 AM CONCRETE PLACEMENT EQUIPMENT OPERATOR Gender Identity Not on file Sexual Orientation Not on file documented as of this encounter Plan of Treatment Not on file documented as of this encounter Goals Goal Patient Goal Type Associated Problems Recent Progress Patient-Stated? Author CCM Chronic Pain Care Plan Chronic Care Management On track(2020 1:08 PM CONCRETE PLACEMENT EQUIPMENT OPERATOR) Joi Navarrete, RN Note: Problem: Chronic Pain [...] COVID: Suspected 09/27/2024 09/27/2024 09/27/2024 6:23 PM CONCRETE PLACEMENT EQUIPMENT OPERATOR documented as of this encounter Care Teams Rod Piler Relationship Specialty Start Date End Date Iliana Gonzalez MD [address] [place] [address] PCP - General 03/30/17 12/17/24 Rm Broderick MD [address] [place] [address] PCP - General Family Medicine 12/18/24 documented as of this encounter
--- OUTSIDE RECORDS SUMMARY | 2025-03-30 09:21 | XMS_ITS | Clinical Summary ---
Author Organization [facility] Address [address] [place] [address] Care Team Providers Care Oracle Application Consultant Name Role Phone Rm Broderick MD Primary [...] a day as needed for pain Active -ddmp- Lmfolate-algal 27 mg iron-1.13 mg-581.92 mg capsule Take 1 tablet by mouth daily Active albuterol HFA (PROVENTIL HFA,VENTOLIN HFA,PROAIR HFA) 90 mcg/actuation inhaler Inhale 2 puffs every 6 (six) hours as needed Active levothyroxine (SYNTHROID) 100 mcg tablet Take 1 tablet (100 mcg total) by mouth telecom assistant before breakfast Active fluticasone-umec lidin-vilanter (Trelegy Ellipta) [...] Type Department Care Team Description 03/25/2025 Telephone [facility] Cardiology [address] [place] [address] Wilmar Kraus MD 03/15/2025 11:25 AM CDT - 03/15/2025 11:59 PM CDT Hospital Encounter [facility] [address] [place] [address] Thoracic spine pain; Neck pain Discharge Disposition: Discharge to home or self care 03/15/2025 10:30 AM CDT Office Visit [facility] Orthopedics and Sports Medicine [facility] [facility] [address] [place] [address] Amber Gaspar, NIURKA Chronic neck pain; Foraminal [...] lower 02/27/2025 9:30 AM CDT Office Visit [facility] Orthopedics and Sports Medicine [address] [place] [address] Anyi Dick PA Other closed fracture of distal end of left fibula with routine healing, subsequent encounter (Primary Dx) 02/27/2025 9:24 AM CDT - 02/27/2025 11:59 PM CDT Hospital Encounter [facility] [address] [place] [address] Other closed fracture of distal end of left fibula, initial encounter Discharge Disposition: Discharge to home or self care 01/18/2025 - 01/18/2025 11:59 PM CDT Hospital Encounter [facility] [employer] [address] [place] [address] Discharge Disposition: Discharge to home or self care 01/16/2025 9:00 AM CDT Office Visit [facility] Orthopedics and Sports Medicine [address] [place] [phone] Rm Paredes DO Acute left ankle pain (Primary Dx); Other closed fracture of distal end of left fibula, initial encounter 01/16/2025 8:39 AM CDT - 01/16/2025 11:59 PM CDT Hospital Encounter [facility] [address] [place] [address] Acute left ankle pain Discharge Disposition: Discharge [...] on file Legal Sex Female 1:48 AM WASHING MACHINE STRIPER Gender Identity Not on file Sexual Orientation Not on file Obstetrics History Last Filed Vital Signs Vital Sign Reading Time Taken Comments Blood Pressure 136/55 12/27/2024 1:00 PM WASHING MACHINE STRIPER Pulse 73 12/27/2024 1:00 PM WASHING MACHINE STRIPER Temperature 36.8 C (98.2 F) 12/27/2024 10:28 AM WASHING MACHINE STRIPER Respiratory Rate 19 12/27/2024 1:00 PM WASHING MACHINE STRIPER Oxygen Saturation 99% 12/27/2024 1:00 PM WASHING MACHINE STRIPER Inhaled Oxygen Concentration - - Weight 78 [...] Chronic Care Management On track(2020 1:08 PM WASHING MACHINE STRIPER) Joi Navarrete, RN Note: Problem: Chronic Pain Goals: 1. Minimize further functional decline 2. Maximize quality of life 3. Control pain Strategies: - Activity/exercise program recommendation - Conservative stepwise pain medicine strategy with multi-disciplinary approach - Recommend healthy lifestyle strategies and compensatory methods as needed Medical Devices Implanted Type Area Abalone Diver Device Identifier Shelf Expiration Date Model / [...] 03/15/2025 11:35 AM CDT Thoracic spine pain IA INJECTION SINGLE/MATERIALS ENGINEER TRIGGER POINT 1/2 MUSCLES Routine 03/15/2025 10:30 [...] by Martin Gibson M.D. T: Report ID: [id number] Reading Location: [place] [address] Procedure Note Martin Gibson MD - 03/16/2025 [...] osteoarthritis is present. Right-sided C3-C4 and bilateral C5-D5psaabktue impingement. Thoracic spine: Mild dextrocurvature of the [...] by Martin Gibson M.D. T: Report ID: [id number] Reading Location: [place] [address] us Amber Gaspar NP IMG XR PROCEDURES [...] by Martin Gibson M.D. T: Report ID: [id number] Reading Location: [id number] Procedure Note Martin Gibson MD - 03/16/2025 [...] osteoarthritis is present. Right-sided C3-C4 and bilateral C5-A8pmcqnqcey impingement. Thoracic spine: Mild dextrocurvature of the [...] by Martin Gibson M.D. T: Report ID: [id number] Reading Location: [id number] Amber Gaspar NP IMG XR PROCEDURES Final Res ult * IA INJECTION SINGLE/MATERIALS ENGINEER TRIGGER POINT 1/2 MUSCLES (03/15/2025 10:30 AM [...] well with no immediate complications Amber Gaspar RECREATIONAL LEADER IN CLINIC/BEDSIDE ORDERABLE S Final Result * [...] by Tomás Quiros M.D. T: Report ID: [id number] Reading Location: [id number] Procedure Note Tomás Quiros MD - 03/01/2025 [...] by Tomás Quiros M.D. T: Report ID: [id number] Reading Location: [place] [address] Anyi CAMPA IMG XR PROCEDURES Final Re [...] signed by Martin GALAN T: Report ID: [id number] Reading Location: [place] [address] Procedure Note Martin Hope MD - 01/19/2025 [...] 7:18 PM - Electronically signed by Martin GALNA T: Report ID: [id number] Reading Location: [id number] us Rm Parekhyunier DO IMG XR PROCEDURES Final Result from Last 3 Months Insurance MEDICARE [facility] MEDICARE [place] MEDICARE [facility] Care Teams Oracle Application Consultant Relationship Specialty Start Date End Date Rm Broderick MD [address] [facility] [address] [address] PCP - General Family Medicine 12/18/24
--- OUTSIDE RECORDS SUMMARY | 2025-03-30 09:21 | XMS_ITS | Clinical Summary ---
Author Organization [facility] Address [address] [place] [address] Care Team Providers Care Zoning Technician Name Role Phone Iliana Gonzalez MD Primary Care Provider + Source Comments [facility],non-owned Affiliates and Associated Physician Practices is amultiple site organization consisting of ambulatory clinics and hospital sitesin [place], [place] and [place]. This disclosure is being madepursuant to the Care Everywhere program and may not contain all information available regarding this patient. Last updated 18.[facility] Allergies Active Allergy Reactions Criticality Noted Date [...] on file Legal Sex Female 5:25 AM SPECIAL AGENT IN CHARGE Gender Identity Not on file Sexual Orientation Not on file Last Filed Vital Signs Vital Sign Reading Time Taken Comments Blood Pressure 120/78 10/30/2018 3:38 PM SPECIAL AGENT IN CHARGE Pulse - - Temperature 36.7 C (98 F) 10/30/2018 3:38 PM SPECIAL AGENT IN CHARGE Respiratory Rate 16 10/30/2018 3:38 PM SPECIAL AGENT IN CHARGE Oxygen Saturation 97% 10/30/2018 3:38 PM SPECIAL AGENT IN CHARGE Inhaled Oxygen Concentration - - Weight 72.6 kg (160 lb) 10/30/2018 3:38 PM SPECIAL AGENT IN CHARGE Height 171.5 cm (5' 7.5) 10/30/2018 3:38 PM SPECIAL AGENT IN CHARGE Body Mass Index 24.69 10/30/2018 3:38 PM SPECIAL AGENT IN CHARGE Plan of Treatment Health Maintenance Due Date [...] fective for All Dates) Name:Izaiah Neha Member ID:[id number] Relation to Subscriber:Self Name:KelleyrosalvaEla cheungne Subscriber ID:[id number] Payer ID:Not on file Group ID:Not on file Type:Medicare Address: [place] [phone] MEDICARE SUPPLEMENT PAYOR GENERIC * Guarantor: PHIL BLISS Account Type Relation to Patient Date of Phone Billing Address Personal/Family [address] [place] [phone] MEDICARE MEDICARE SUPPLEMENT PAYOR GENERIC * Guarantor: PHIL BLISS Account Type Relation to Patient Date of Phone Billing Address Personal/Family [address] [place] [address] MEDICARE MEDICARE SUPPLEMENT PAYOR GENERIC * Guarantor: PHIL BLISS Account Type Relation to Patient Date of Phone Billing Address Personal/Family [address] [place] [phone] MEDICARE Member Subscriber Plan / Payer (Ef fective for All Dates) Name:Neha Bliss Member ID:[id number] Relation to Subscriber:Self Name:Neha Bliss Subscriber ID:[id number] Payer ID:Not on file Group ID:Not on file Type:Medicare Address: [place] [id number] MEDICARE SUPPLEMENT PAYOR GENERIC Care Teams Zoning Technician Relationship Specialty Start Date End Date Iliana Gonzalez MD [address] [place] [address] PCP - General 02/25/21
--- OUTSIDE RECORDS SUMMARY | 2025-03-30 09:21 | XMS_ITS | Referral Summary ---
Author Organization [facility] Address [address] [place] [address] Care Team Providers Care Rand Butting Machine Operator Name Role Phone Rm Broderick MD Primary Care Provider Encounters Date Type Department Care Team Description 03/25/2025 Telephone [facility] Cardiology [address] [facility] [[email or web address] [address] [place] [phone] Wilmar Kraus MD 03/15/2025 11:25 AM CDT - 03/15/2025 11:59 PM CDT Hospital Encounter [facility] [address] [place] [phone] Thoracic spine pain; Neck pain Discharge Disposition: Discharge to home or self care 03/15/2025 10:30 AM CDT Office Visit [facility] Orthopedics and Sports Medicine [address] [place] [address] [address] [place] [phone] Amber Gaspar NP Chronic neck pain; Foraminal [...] - 02/27/2025 11:59 PM CDT Hospital Encounter [facility] [address] [place] [address] Other closed fracture of distal end of left fibula, initial encounter Discharge Disposition: Discharge to home or self care 02/27/2025 9:30 AM CDT Office Visit [facility] Medical [facility] Orthopedics and Sports Medicine [address] [place] [phone] Anyi Dick PA Other closed fracture of distal end of left fibula with routine healing, subsequent encounter (Primary Dx) 01/18/2025 - 01/18/2025 11:59 PM CDT Hospital Encounter [facility] [employer] [address] [place] [address] Discharge Disposition: Discharge to home or self care 01/16/2025 8:39 AM CDT - 01/16/2025 11:59 PM CDT Hospital Encounter [facility] Imaging [address] [place] [address] Acute left ankle pain Discharge Disposition: Discharge to home or self care 01/16/2025 9:00 AM CDT Office Visit [facility] Medical [facility]opedics and Sports Medicine [address] [place] [phone] Rm Paredes DO Acute left ankle pain [...] a day as needed for pain Active xwawpeun92-ndkj- Lmfolate-algal 27 mg iron-1.13 mg-581.92 mg capsule Take 1 tablet by mouth daily Active albuterol HFA (PROVENTIL HFA,VENTOLIN HFA,PROAIR HFA) 90 mcg/actuation inhaler Inhale 2 puffs every 6 (six) hours as needed Active levothyroxine (SYNTHROID) 100 mcg tablet Take 1 tablet (100 mcg total) by mouth body art technician before breakfast Active fluticasone-umec lidin-vilanter (Trelegy Ellipta) [...] on file Legal Sex Female 1:48 AM REGISTERED DIETITIAN Gender Identity Not on file Sexual Orientation Not on file Last Filed Vital Signs Vital Sign Reading Time Taken Comments Blood Pressure 136/55 12/27/2024 1:00 PM REGISTERED DIETITIAN Pulse 73 12/27/2024 1:00 PM REGISTERED DIETITIAN Temperature 36.8 C (98.2 F) 12/27/2024 10:28 AM REGISTERED DIETITIAN Respiratory Rate 19 12/27/2024 1:00 PM REGISTERED DIETITIAN Oxygen Saturation 99% 12/27/2024 1:00 PM REGISTERED DIETITIAN Inhaled Oxygen Concentration - - Weight 78 kg (172 lb) 03/15/2025 10:24 AM CDT Height 170.2 cm (5' 7) 03/15/2025 10:24 AM CDT Body Mass Index 26.94 03/15/2025 10:24 AM CDT Plan of Treatment Not on file Goals Goal Patient Goal Type Associated Problems Recent Progress Patient-Stated? Author CCM Chronic Pain Care Plan Chronic Care Management On track(2020 1:08 PM REGISTERED DIETITIAN) Joi Navarrete, RN Note: Problem: Chronic Pain Goals: 1. Minimize further functional decline 2. Maximize quality of life 3. 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 T: Report ID: [id number] Reading Location: [id number] Procedure Note Martin Gibson MD - 03/16/2025 [...] osteoarthritis is present. Right-sided C3-C4 and bilateral C5-W2guengxgzc impingement. Thoracic spine: Mild dextrocurvature of the [...] by Martin Gibson M.D. T: Report ID: [id number] Reading Location: [id number] Amber Gaspar NP IMG XR PROCEDURES Final [...] signed by Martin CORBIN T: Report ID: [id number] Reading Location: [address] Note Martin Gibson MD - 03/16/2025 [...] osteoarthritis is present. Right-sided C3-C4 and bilateral C5-Z6fksjfsdre impingement. Thoracic spine: Mild dextrocurvature of the [...] by Martin Gibson M.D. 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 T: Report ID: [id number] Reading Location: [id number] Procedure Note Tomás Quiros MD - 03/01/2025 [...] by Tomás Quiros M.D. T: Report ID: [id number] Reading Location: [id number] us Anyi CAMPA IMG XR PROCEDURES Final [...] signed by Martin GALAN T: Report ID: [id number] Reading Location: [id number] Procedure Note Martin Hoep MD - 01/19/2025 EXAM DESCRIPTION: XR ANKLE [...] Martin Hope M.D. MJ T: Report ID: [id number] Reading Location: [id number] us Rm Paredes DO IMG XR PROCEDURES Final Result from Last 3 Months Insurance MEDICARE [facility] MEDICARE [employer] MEDICARE [facility] Care Teams Rand Butting Machine Operator Relationship Specialty Start Date End Date Rm Broderick MD [address] [facility] [address] [place] [address] PCP - General Family Medicine 12/18/24
[2025-03-30 09:37] LABS: Basophils Percent Auto 0.3 % (0.2-1.2); Eosinophils Percent Auto 0.6 % (0-4.4); Hematocrit 43.5 % (37.0-47.0); Hemoglobin 13.5 g/dL (12.0-15.0); Immature Granulocyte Absolute 0.14 K/mm3 (0.00-0.031); Immature Granulocyte Percent A 2.1 % (0-0.5); Lymphocytes Percent Auto 10.4 % (18.3-44.2); Mean Corpuscular Hemoglobin 30.1 pg (26-34); Mean Corpuscular Volume 96.9 fl (80-100); Mean Platelet Volume 10.7 fl (7.4-10.4); Monocytes Absolute Auto 0.4 K/mm3 (0.1-0.6); Monocytes Percent Auto 5.9 % (2.6-8.5); Neutrophils Absolute Auto 5.5 K/mm3 (1.3-6.7); Neutrophils Percent Auto 80.7 % (45.5-73.1); Platelet Count Result 231 k/mm3 (150-375); Red Blood Count 4.49 M/mm3 (4.2-5.4); Red Cell Distribution Width 18.6 % (11.5-14.5); White Blood Count 6.8 K/mm3 (4.5-10.0)
[2025-03-30 09:49] LABS: Alanine Aminotransferase 32 U/L (6-35); Albumin Level 4.3 g/dL (3.5-5.1); Alkaline Phosphatase 24 U/L (38-126); Anion Gap 7 mmol/L (4-12); Aspartate Amino Transferase 40 U/L (14-36); Bilirubin,Total 0.5 mg/dL (0.2-1.3); Blood Urea Nitrogen 24 mg/dL (7-17); Calcium 9.3 mg/dL (8.4-10.2); Carbon Dioxide 27 mmol/L (22-30); Chloride 105 mmol/L (98-107); Estimated CRCL calculation 45 ml/min; Estimated Glomerular Filt Rate 58; Glucose 121 mg/dL (65-110); INR 0.9; Potassium 3.5 mmol/L (3.4-5.0); Prothrombin Time 12.3 Seconds (11.1-14.7); Sodium 139 mmol/L (137-145)
[2025-03-30 09:50] LABS: Partial Thromboplastin Time 22.1 Seconds (22.3-36.8)
--- NOTE | 2025-03-30 10:33 | ADMGEN ---
This patient, Neha Bliss, was admitted to IMU Room 207-01 at 1032. Patient/family oriented to hospital policies and general routines including ID bracelet, bed and alarms, visiting hours, pain management, procedures, bathroom and other care routines, personal items, smoking policy, room service/diet, and visiting hours. Information on how to activate the Rapid Response Team has been discussed. Patient/Family are encouraged to report perceived risks to care and to ask questions if they do not understand what they are told or what they should do.
--- NOTE | 2025-03-30 12:35 | P.HP_ITS ---
H&P: HPI History of Present Illness Date/Time: 03/30/25 13:35 Chief Complaint: Weakness. Narrative: This is an 84-year-old female with history of myasthenia gravis, cerebrovascular accident, hyperlipidemia, pulmonary embolism on chronic anticoagulation, Shine esophagus, asthma, hypothyroidism, and breast cancer who presented to the emergency department with complaints of weakness. She was diagnosed with thierno sthenia gravis in October 2024 and she has been on pyridostigmine and prednisone 40 mg daily since that time. She saw Dr. Esquivel in follow-up earlier this week at which time she admitted that she was still not back to normal. She continues to have issues getting up from a chair and at times her speech and swallowing seem to be affected as well. When she is especially sleepy she has noticed that her left eye droops. At time she is short of breath but that is rare. She denies current visual changes, vertigo, focal weakness, paresthesias, chest pain, shortness of breath, cold and flu symptoms, nausea, vomiting, diarrhea, and dysuria. In the ED: Vital signs were stable on arrival. Her BUN and creatinine are up a bit but the remainder of her labs are stable and unchanged. She is being admitte d in this setting for neurology consultation and IVIG. Review of Systems Review of Systems: 12 systems were reviewed and are negativ e except for as per HPI. 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 Chronic anemia status post iron infusion Asthma Overactive bladder Arthritis Cerebrovascular accident involving cerebellum Deep venous thrombosis Pulmonary emboli (04/2023) Mitral valve regurgitation Incontinence of urine Generalized myasthenia gravis Lumbar spondylolysis Cervical spondylosis Barretts esophagus Nonerosive esophageal reflux disease Ventral hernia Overweight (BMI 25.0-29.9) Transient cerebral ischemia Chronic gastritis without bleeding Allergic rhinitis Chronic sinusitis Hiatal hernia without gangrene and obstruction Mixed hyperlipidemia Pancreatic cyst Postoperative hypothyroidism Surgical History Surgical History History of lumpectomy of left breast (09/2023) History of arthroplasty of right knee History of bilateral hip arthroplasty History of appendectomy 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 History of cystoscopy History of partial thyroidectomy History of incisional hernia repair History of colon surgery History of discectomy History of lumbar fusion History of fusion of cervical spine History of cholecystectomy History of bilateral hip replacements History of right knee joint replacement Family History Family History Father Patient's father is Family history of tuberculosis, Onset Age: 72 Diabetes mellitus Mother Family history of cardiomyopathy Family history of elevated blood lipids Hypertension Sibling Diabetes mellitus Hypertension Cerebrovascular accident Thyroid disorder Heart problem Social History Social History Social History: Surrogate medical decision maker: Janette Bliss, daughter ([phone]). Code status: Modified code, no intubation. Smoking status: Never smoker Second hand tobacco smoke exposure: No Alcohol intake: never Substance use: never Substance use type: does not use Do You Feel Safe in your Home?: Yes Lack of Transportation: No Lack of Food: Never True Current Housing: I Have Housing Concerned About Future Housing: No Difficulty Paying Gas/Electric Bills: No Difficulty Paying for Meds: No Currently Unemployed: No Education: High School Diploma/GED Difficulty w/ Childcare or Family Care: No Living arrangements: alone Additional living arrangements comments: . Lives in [place]. Occupation/Education: retired Spiritual care concerns: No Meds Home Medications and Allergies Home Medications ?Medication ?Instructions ?Recorded ?Confirmed ?Type aspirin 81 mg tablet,delayed 81 mg PO DAILY 09/20/19 03/30/25 History release acetaminophen 650 mg 650 mg PO Q8H PRN Pain 04/13/23 03/30/25 History tablet,extended release (Tylenol 8 Hour) Lactobacillus 1 cap PO DAILY 10/07/23 03/30/25 History acidophilus-Bifidobac.animalis 2.5 billion cell capsule (Daily Probiotic) docusate sodium 100 mg capsule 100 mg PO DAILY 10/07/23 03/30/25 History (Stool Softener) anastrozole 1 mg tablet 1 mg PO DAILY 01/27/24 03/30/25 History apixaban 5 mg tablet (Eliquis) 2.5 mg PO BID 03/26/24 03/30/25 History cholecalciferol (vitamin D3) 125 125 mcg PO DAILY 03/26/24 03/30/25 History mcg (5,000 unit) tablet (Vitamin D3) fluticasone fur. 100 mcg-umeclid 1 inh inhalation DAILY PRN 03/26/24 03/30/25 History 62.5 mcg-vilant 25 mcg Shortness Of Breath Or Wheezing inhalat.powder (Trelegy Ellipta) vibegron 75 mg tablet (Gemtesa) 75 mg PO DAILY 05/19/24 03/30/25 History gabapentin 100 mg capsule See Rx Instructions .Route 09/10/24 03/30/25 Rx .COMPLEX #540 caps albuterol sulfate 90 mcg/actuation 2 puff inhalation QID PRN 10/10/24 03/30/25 Rx aerosol inhaler (Ventolin HFA) shortness of breath or wheezing #8.5 grams levothyroxine 100 mcg tablet See Rx Instructions .Route 02/18/25 03/30/25 Rx .COMPLEX #90 tabs omeprazole 40 mg capsule,delayed 40 mg PO DAILY #90 caps 03/21/25 03/30/25 Rx release prednisone 20 mg tablet 40 mg (2 x 20 mg) PO DAILY #120 03/25/25 03/30/25 Rx tabs pyridostigmine bromide 60 mg 60 mg PO QID #120 tabs 03/25/25 03/30/25 Rx tablet (Mestinon) docusate sodium 100 mg capsule 100 mg PO DAILY 03/30/25 03/30/25 History ferrous sulfate 325 mg (65 mg 325 mg PO DAILY 03/30/25 03/30/25 History iron) tablet (Iron (ferrous sulfate)) multivitamin (Daily Multi-Vitamin 1 tablet PO DAILY 03/30/25 03/30/25 History tablet) Allergies Allergy/AdvReac Type Severity Reaction Status Date / Time meperidine Allergy Severe stroke Verified 03/25/25 12:36 like sx morphine Allergy Severe Anaphylaxis Verified 03/25/25 12:36 gabapentin AdvReac Intermediate Confusion Verified 03/25/25 12:36 hydromorphone (From Dilaudid) AdvReac Intermediate Vomiting Verified 03/25/25 12:36 Vital Signs Vital Signs - 24 hr 03/30/25 09:01 03/30/25 10:24 03/30/25 10:55 Temperature 97.8 F 97.9 F Pulse Rate 81 84 Respiratory Rate 16 18 18 Blood Pressure 100/50 L 139/60 Pulse Oximetry 100 97 100 Oxygen Delivery Room Air 03/30/25 11:38 Temperature 97.9 F Pulse Rate 73 Respiratory Rate 20 Blood Pressure 139/73 Pulse Oximetry 98 Oxygen Delivery Exam Narrative: General: Well-developed, nontoxic-appearing elderly female sitting up in bed in no distress. Weight: 81 kg. BMI: 28.0. HEENT: Normocephalic, atraumatic. PERRL, EOMI. Mild lid leg of the left eye. Sclera anicteric. Tacky mucous membranes. Neck: Supple. Respiratory: Lungs are clear to auscultation bilaterally. Cardiovascular: Regular rate and rhythm with S1-S2. Gastrointestinal: Abdomen is soft, nontender, and nondistended with positive bowel sounds. Skin: Warm and dry. No rash or lesions on limited exam. Extremities: No cyanosis, clubbing, or edema. Radial and pedal pulses intact. Neurological: Alert and oriented. Cranial nerves 2-12 are grossly intact. Speech is clear. No facial asymmetry. Weak proximal muscles and shoulder shrug. No gross focal deficits to casual conversation. Psychiatric: Pleasant and cooperative with normal mood and affect. H&P: Results Labs Labs: Short CBC 03/30/25 Range/Units 09:22 WBC 6.8 (4.5-10.0) K/mm3 Hgb 13.5 (12.0-15.0) g/dL Hct 43.5 (37.0-47.0) % Plt Count 231 (150-375) k/mm3 BMP 03/30/25 09:22 Sodium 139 Potassium 3.5 Chloride 105 Carbon Dioxide 27 BUN 24 H Creatinine 0.92 Glucose 121 H Calcium 9.3 Liver Function 03/30/25 Range/Units 09:22 Total Bilirubin 0.5 (0.2-1.3) mg/dL AST 40 H (14-36) U/L ALT 32 (6-35) U/L Alkaline Phosphatase 24 L (38-126) U/L Albumin 4.3 (3.5-5.1) g/dL Assessment and Plan Assessment and plan (1) Myasthenia gravis with exacerbation: Code(s): G70.01 - Myasthenia gravis with (acute) exacerbation Status: Acute (2) Chronic anticoagulation: Code(s): Z79.01 - assisted (current) use of anticoagulants Status: Acute (3) Asthma: Code(s): J45.909 - Unspecified asthma, uncomplicated Status: Acute (4) Hypothyroidism: Code(s): E03.9 - Hypothyroidism, unspecified Status: Acute (5) Barretts esophagus: Code(s): K22.70 - Shine's esophagus without dysplasia Status: Acute (6) Mucinous carcinoma of left breast: Code(s): C50.912 - Malignant neoplasm of unspecified site of left female breast Status: Acute Plan The patient presented to the emergency department with complaints of ongoing weakness despite having been started on prednisone 40 mg daily and pyridostigmine for myasthenia gravis which was diagnosed in October 2024 as detailed in HPI. Labs, imaging, EKG, and all reports were personally reviewed. Dr. Esquivel has been consulted and it is my understanding that he will be starting her on IVIG. Continue pyridostigmine and prednisone. Chronic issues without acute problems include history of DVT/PE on anticoagulation, breast cancer on anastrozole, asthma, hypothyroidism, and Shine esophagus. Her home medications will be reviewed and resumed as appropriate. Findings and treatment plan were discussed with the patient. Questions were solicited and answered to satisfaction. The patient's medical management will be taken over by the hospitalist team in a.m. Quality VTE Prophylaxis VTE prophylaxis: pharmacologic ordered (on apixaban) Hospitalist [facility] Advance Care Plan I have confirmed that the patient's Advanced Care Plan is present, code status is documented, or surrogate decision maker is listed in patient medical record.: Yes Medication Reconciliation I have utilized all available resources to obtain, update and review the patients current medications (includes all prescriptions, OTC, herbals, cannabis, and nutritional supplements).: Yes
[2025-03-30] MEDS: LACTATED RINGERS 1,000 ML 100 ML IV CONT (15:25)
[2025-03-30] MEDS: APIXABAN 2.5 MG TABLET PO ×2 (15:35→23:56)
--- NOTE | 2025-03-30 16:02 | WPDNEURCNPN ---
Assessment and Plan Assessment and plan (1) Myasthenia gravis with exacerbation: Code(s): G70.01 - Myasthenia gravis with (acute) exacerbation Status: Acute Plan The patient has been pyridostigmine and prednisone 40 mg a day. She requires a course of IVIG at 0.4 gram/kilos body weight daily for 5 days. She should be given occupational therapy and physical therapy particularly since he lives by herself and is added high risk of falling. She is particularly weak in her lower limbs. It should be that antibody titers were very high when tested in October 2024. Her ACH blocking antibody was 58 and binding 80 body was 25.68 and modulating antibody was 89 all fairly high levels. Neurology will follow. Consult date: 03/30/25 HPI: Neha Bliss is a 84 year old femaleWith seropositive generalized myasthenia gravis diagnosed towards the later part of the last year admitted to the hospital on account of increasing weakness. Patient lives alone and has difficulty walking. She has a walker and a cane despite that sometimes he just cannot walk. She has weakness in the arms. She has intermittent difficulty with speech and swallowing. I advised her that if she keeps on getting worse she should be admitted course of IVIG therapy and a intensive physical therapy and occupational therapy particularly since he still lives by herself. She currently on pyridostigmine and steroids. Despite this he has not improved Sufficiently. She has had some bladder incontinence issue that to was addressed by urologist and had she has had some sort of injection that he is working well for her. She also has history of carcinoma of breast for which she follows with oncologist. She has had iron infusion for any Katharina. Review of Systems Review of Systems: No difficulty with breathing. She is able to speak currently however symptoms fluctuate. 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 Chronic anemia status post iron infusion Asthma Overactive bladder Arthritis Cerebrovascular accident involving cerebellum Deep venous thrombosis Pulmonary emboli (04/2023) Mitral valve regurgitation Incontinence of urine Generalized myasthenia gravis Lumbar spondylolysis Cervical spondylosis Barretts esophagus Nonerosive esophageal reflux disease Ventral hernia Overweight (BMI 25.0-29.9) Transient cerebral ischemia Chronic gastritis without bleeding Allergic rhinitis Chronic sinusitis Hiatal hernia without gangrene and obstruction Mixed hyperlipidemia Pancreatic cyst Postoperative hypothyroidism Surgical History Surgical History History of lumpectomy of left breast (09/2023) History of arthroplasty of right knee History of bilateral hip arthroplasty History of appendectomy 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 History of cystoscopy History of partial thyroidectomy History of incisional hernia repair History of colon surgery History of discectomy History of lumbar fusion History of fusion of cervical spine History of cholecystectomy History of bilateral hip replacements History of right knee joint replacement Family History Family History Father Patient's father is Family history of tuberculosis, Onset Age: 72 Diabetes mellitus Mother Family history of cardiomyopathy Family history of elevated blood lipids Hypertension Sibling Diabetes mellitus Hypertension Cerebrovascular accident Thyroid disorder Heart problem Social History Social History Social History: Surrogate medical decision maker: Janette Bliss, daughter ([phone]). Code status: Modified code, no intubation. Smoking status: Never smoker Second hand tobacco smoke exposure: No Alcohol intake: never Substance use: never Substance use type: does not use Do You Feel Safe in your Home?: Yes Lack of Transportation: No Lack of Food: Never True Current Housing: I Have Housing Concerned About Future Housing: No Difficulty Paying Gas/Electric Bills: No Difficulty Paying for Meds: No Currently Unemployed: No Education: High School Diploma/GED Difficulty w/ Childcare or Family Care: No Living arrangements: alone Additional living arrangements comments: . Lives in [place]. Occupation/Education: retired Spiritual care concerns: No Meds Home Medications and Allergies Home Medications ?Medication ?Instructions ?Recorded ?Confirmed ?Type aspirin 81 mg tablet,delayed 81 mg PO DAILY 09/20/19 03/30/25 History release acetaminophen 650 mg 650 mg PO Q8H PRN Pain 04/13/23 03/30/25 History tablet,extended release (Tylenol 8 Hour) Lactobacillus 1 cap PO DAILY 10/07/23 03/30/25 History acidophilus-Bifidobac.animalis 2.5 billion cell capsule (Daily Probiotic) docusate sodium 100 mg capsule 100 mg PO DAILY 10/07/23 03/30/25 History (Stool Softener) anastrozole 1 mg tablet 1 mg PO DAILY 01/27/24 03/30/25 History apixaban 5 mg tablet (Eliquis) 2.5 mg PO BID 03/26/24 03/30/25 History cholecalciferol (vitamin D3) 125 125 mcg PO DAILY 03/26/24 03/30/25 History mcg (5,000 unit) tablet (Vitamin D3) fluticasone fur. 100 mcg-umeclid 1 inh inhalation DAILY PRN 03/26/24 03/30/25 History 62.5 mcg-vilant 25 mcg Shortness Of Breath Or Wheezing inhalat.powder (Trelegy Ellipta) vibegron 75 mg tablet (Gemtesa) 75 mg PO DAILY 05/19/24 03/30/25 History gabapentin 100 mg capsule See Rx Instructions .Route 09/10/24 03/30/25 Rx .COMPLEX #540 caps albuterol sulfate 90 mcg/actuation 2 puff inhalation QID PRN 10/10/24 03/30/25 Rx aerosol inhaler (Ventolin HFA) shortness of breath or wheezing #8.5 grams levothyroxine 100 mcg tablet See Rx Instructions .Route 02/18/25 03/30/25 Rx .COMPLEX #90 tabs omeprazole 40 mg capsule,delayed 40 mg PO DAILY #90 caps 03/21/25 03/30/25 Rx release prednisone 20 mg tablet 40 mg (2 x 20 mg) PO DAILY #120 03/25/25 03/30/25 Rx tabs pyridostigmine bromide 60 mg 60 mg PO QID #120 tabs 03/25/25 03/30/25 Rx tablet (Mestinon) docusate sodium 100 mg capsule 100 mg PO DAILY 03/30/25 03/30/25 History ferrous sulfate 325 mg (65 mg 325 mg PO DAILY 03/30/25 03/30/25 History iron) tablet (Iron (ferrous sulfate)) multivitamin (Daily Multi-Vitamin 1 tablet PO DAILY 03/30/25 03/30/25 History tablet) Allergies Allergy/AdvReac Type Severity Reaction Status Date / Time meperidine Allergy Severe stroke Verified 03/25/25 12:36 like sx morphine Allergy Severe Anaphylaxis Verified 03/25/25 12:36 gabapentin AdvReac Intermediate Confusion Verified 03/25/25 12:36 hydromorphone (From Dilaudid) AdvReac Intermediate Vomiting Verified 03/25/25 12:36 Vital Signs Vital Signs - 24 hr 03/30/25 09:01 03/30/25 10:24 03/30/25 10:55 Temperature 97.8 F 97.9 F Pulse Rate 81 84 Respiratory Rate 16 18 18 Blood Pressure 100/50 L 139/60 Pulse Oximetry 100 97 100 Oxygen Delivery Room Air 03/30/25 11:38 03/30/25 12:00 Temperature 97.9 F Pulse Rate 73 73 Respiratory Rate 20 20 Blood Pressure 139/73 Pulse Oximetry 98 98 Oxygen Delivery Room Air Exam Narrative: For fully conscious alert oriented to self time place and person. Speech is fluent and articulate however she speaks in a low voice. No ptosis or weakness of the neck muscles noted. Extraocular movements appear intact at this time. In the past she has had ptosis on the left side.Able to protrude the tongue normally. Facial sensation intact. Visual pisano by confrontation are normal. On both sides slightly more on the right than left side. Upper limb power grade 4/5 deep tendon reflexes did not show any asymmetry. Sensory exam is unremarkable. No involuntary movements are seen. Results Labs 03/30/25 09:22 03/30/25 09:22 Labs: Short CBC 03/30/25 Range/Units 09:22 WBC 6.8 (4.5-10.0) K/mm3 Hgb 13.5 (12.0-15.0) g/dL Hct 43.5 (37.0-47.0) % Plt Count 231 (150-375) k/mm3 [facility] 03/30/25 09:22 Sodium 139 Potassium 3.5 Chloride 105 Carbon Dioxide 27 BUN 24 H Creatinine 0.92 Glucose 121 H Calcium 9.3 Liver Function 03/30/25 Range/Units 09:22 Total Bilirubin 0.5 (0.2-1.3) mg/dL AST 40 H (14-36) U/L ALT 32 (6-35) U/L Alkaline Phosphatase 24 L (38-126) U/L Albumin 4.3 (3.5-5.1) g/dL
[2025-03-30] MEDS: GABAPENTIN 100 MG CAPSULE 200 MG BY MOUTH (17:24)
[2025-03-30] MEDS: pyRIDostigmine bromide 60 MG TABLET PO ×2 (17:25→21:21)
[2025-03-30] MEDS: PREMIXIV IVPB (17:26)
[2025-03-30] MEDS: IMMUNE GLOBULIN IVPB (17:26)
[2025-03-30 20:08] LABS: Add Urine Microscopic? YES; Appearance Urine Clear (Clear); Bacteria Urine None Seen /hpf; Bilirubin Urine Negative (Negative); Blood Urine Trace (Negative); Color Urine Yellow (Yellow); Glucose Urine UA Negative (Negative); Ketones Urine Negative (Negative); Leukocyte Esterase Ur 3+ LEU/UL (Negative); Nitrate Urine Negative (Negative); Non Pathogenic Casts 0-2; Protein Urine Negative (Negative); RBC Urine 0-2 /hpf (0-2); Specific Grav Ur 1.012 (1.001-1.035); Squamous Epithelial Cell Urine None Seen /hpf (Few); Urobilinogen Urine 0.2 mg/dL (<2.0); WBC Urine 51-100 /hpf (0-3); pH Urine 6.5 (5.0-9.0)
[2025-03-30] MEDS: PANTOPRAZOLE 40 MG TABLET PO (21:21)
[2025-03-31] VITALS (13 sets, daily range): BP systolic 116–155; BP diastolic 50–69; PULSE 64–82; RESP 14–20; TEMP 36.3–37.2; O2SAT 94–100
[2025-03-31 04:34] LABS: Anion Gap -1 mmol/L (4-12); Blood Urea Nitrogen 16 mg/dL (7-17); Calcium 8.8 mg/dL (8.4-10.2); Carbon Dioxide 30 mmol/L (22-30); Chloride 108 mmol/L (98-107); Estimated CRCL calculation 60 ml/min; Estimated Glomerular Filt Rate > 60; Glucose 89 mg/dL (65-110); Magnesium 2.2 mg/dL (1.6-2.3); Potassium 3.7 mmol/L (3.4-5.0); Sodium 137 mmol/L (137-145)
[2025-03-31] MEDS: LEVOTHYROXINE SODIUM 100 MCG TABLET BY MOUTH (05:42)
[2025-03-31 07:13] LABS: Thyroid Stimulating Hormone Reflex 0.632 uIU/mL (0.465-4.68)
[2025-03-31 08:15] LABS: Hematocrit 35.9 % (37.0-47.0); Mean Corpuscular HGB Conc 30.6 g/dl (32-36); Mean Corpuscular Hemoglobin 30.1 pg (26-34); Mean Corpuscular Volume 98.1 fl (80-100); Mean Platelet Volume 11.1 fl (7.4-10.4); Platelet Count Result 163 k/mm3 (150-375); Red Blood Count 3.66 M/mm3 (4.2-5.4); Red Cell Distribution Width 18.5 % (11.5-14.5); White Blood Count 4.8 K/mm3 (4.5-10.0)
[2025-03-31] MEDS: PANTOPRAZOLE 40 MG TABLET PO ×2 (08:36→21:26)
[2025-03-31] MEDS: pyRIDostigmine bromide 60 MG TABLET PO ×4 (08:36→21:26)
[2025-03-31] MEDS: predniSONE 20 MG TABLET 40 MG PO (08:36)
[2025-03-31] MEDS: ANASTROZOLE (*CHEMO) 1 MG TABLET PO (08:37)
[2025-03-31] MEDS: ASPIRIN 81 MG ENTERIC TABLET PO (08:37)
[2025-03-31] MEDS: APIXABAN 2.5 MG TABLET PO ×2 (08:37→21:27)
[2025-03-31] MEDS: ACIDOPHILUS/BULGARICUS CHEWABLE TABLET 1 TABLET PO (08:37)
[2025-03-31] MEDS: MULTIVITAMINS THERAPEUTIC TAB (*BKC) 1 TABLET PO (08:37)
[2025-03-31] MEDS: DOCUSATE SODIUM 100 MG CAPSULE PO (08:37)
[2025-03-31] MEDS: FLUTICASONE/UMECLIDIN/VILANTER 100-62.5-25 MCG ELLIPTA 1 PUFF INHALATION (09:37)
--- NOTE | 2025-03-31 14:18 | PM.IMPN ---
Progress Note: A&P Assessment and Plan (1) Myasthenia gravis with exacerbation: Code(s): G70.01 - Myasthenia gravis with (acute) exacerbation Status: Acute (2) Chronic anticoagulation: Code(s): Z79.01 - intermediate (current) use of anticoagulants Status: Acute (3) Asthma: Code(s): J45.909 - Unspecified asthma, uncomplicated Status: Acute (4) Hypothyroidism: Code(s): E03.9 - Hypothyroidism, unspecified Status: Acute (5) Barretts esophagus: Code(s): K22.70 - Shine's esophagus without dysplasia Status: Acute (6) Mucinous carcinoma of left breast: Code(s): C50.912 - Malignant neoplasm of unspecified site of left female breast Status: Acute Plan The patient presented to the emergency department with complaints of ongoing weakness despite having been started on prednisone 40 mg daily and pyridostigmine for myasthenia gravis which was diagnosed in October 2024 as detailed in HPI. Labs, imaging, EKG, and all reports were personally reviewed. Dr. Esquivel has been consulted and it is my understanding that he will be starting her on IVIG. Continue pyridostigmine and prednisone. Chronic issues without acute problems include history of DVT/PE on anticoagulation, breast cancer on anastrozole, asthma, hypothyroidism, and Shine esophagus. Her home medications will be reviewed and resumed as appropriate. Findings and treatment plan were discussed with the patient. Questions were solicited and answered to satisfaction. The patient's medical management will be taken over by the hospitalist team in a.m. patient with myasthenia gravis with generalized weakness and difficulty with ADL, patient has been on pyridostigmine and prednisone 40 mg daily since, patient was seen by neurologist and recommend patient will benefit from infusion of IVIG at 0.4 gram/kilos body weight daily for 5 days. the has been started and will start patient on PT/OT this will help with her physical activities and patient will benefit going into acute rehab. Subjective Date/time seen: 03/31/25 14:18 Interval history: H&P-Narrative: This is an 84-year-old female with history of myasthenia gravis, cerebrovascular accident, hyperlipidemia, pulmonary embolism on chronic anticoagulation, Shine esophagus, asthma, hypothyroidism, and breast cancer who presented to the emergency department with complaints of weakness. She was diagnosed with myasthenia gravis in October 2024 and she has been on pyridostigmine and prednisone 40 mg daily since that time. She saw Dr. Esquivel in follow-up earlier this week at which time she admitted that she was still not back to normal. She continues to have issues getting up from a chair and at times her speech and swallowing seem to be affected as well. When she is especially sleepy she has noticed that her left eye droops. At time she is short of breath but that is rare. She denies current visual changes, vertigo, focal weakness, paresthesias, chest pain, shortness of breath, cold and flu symptoms, nausea, vomiting, diarrhea, and dysuria. patient with myasthenia gravis with generalized weakness and difficulty with ADL, patient has been on pyridostigmine and prednisone 40 mg daily since, patient was seen by neurologist and recommend patient will benefit from infusion of IVIG at 0.4 gram/kilos body weight daily for 5 days. the has been started and will start patient on PT/OT this will help with her physical activities and patient will benefit going into acute rehab. Review of Systems Review of Systems: 12 systems were reviewed and are negative except for as per HPI. Exam Narrative: Elderly frail Patient is comfortable, NAD HEENT: eyes are clear and none icteric LUNGS:CTA HEART: RR S1S2 ABD: BS+, Soft and nontender Lower extremities: no edema SKIN: nonjaundiced Neuro: grossly intact. Objective Data Vital Signs Vital Signs: Vital Signs - 24 hr 03/30/25 16:00 03/30/25 16:00 03/30/25 16:12 Temperature 36.8 C Pulse Rate 73 71 67 Respiratory Rate 20 20 Blood Pressure 135/73 Pulse Oximetry 98 97 Oxygen Delivery Room Air Fraction of Inspired Oxygen 03/30/25 18:00 03/30/25 19:08 03/30/25 20:00 Temperature 37.0 C Pulse Rate 71 76 62 Respiratory Rate 20 Blood Pressure 152/76 H Pulse Oximetry 96 Oxygen Delivery Fraction of Inspired Oxygen 03/30/25 21:30 03/30/25 22:00 03/30/25 23:51 Temperature 36.7 C Pulse Rate 76 65 71 Respiratory Rate 18 Blood Pressure 124/64 Pulse Oximetry 96 95 Oxygen Delivery Room Air Fraction of Inspired Oxygen 03/31/25 00:00 03/31/25 04:00 03/31/25 04:00 Temperature 36.5 C Pulse Rate 69 64 65 Respiratory Rate 18 Blood Pressure 139/60 Pulse Oximetry 96 Oxygen Delivery Fraction of Inspired Oxygen 03/31/25 06:00 03/31/25 07:49 03/31/25 08:00 Temperature 37.0 C Pulse Rate 66 79 Respiratory Rate 14 Blood Pressure 143/69 H Pulse Oximetry 95 95 Oxygen Delivery Room Air Fraction of Inspired Oxygen 03/31/25 08:00 03/31/25 09:37 03/31/25 10:36 Temperature Pulse Rate 82 74 Respiratory Rate Blood Pressure Pulse Oximetry 96 Oxygen Delivery Room Air Fraction of Inspired Oxygen 03/31/25 11:51 03/31/25 12:00 Temperature 37.2 C Pulse Rate 78 80 Respiratory Rate 18 Blood Pressure 155/65 H Pulse Oximetry 94 Oxygen Delivery Fraction of Inspired Oxygen Intake/Output Intake/Output: Intake & Output 03/28/25 03/29/25 03/30/25 03/31/25 23:59 23:59 23:59 23:59 Intake Total 1100.0 1670 Output Total 50 2350 Balance 1050.0 -680 Meds/Results Medications: Active Medications Generic Name Dose Route Start Last Admin Trade Name Freq PRN Reason Stop Dose Admin Acetaminophen 650 mg 03/30/25 13:11 Acetaminophen 325 Mg Tablet PO Q8H PRN PAIN RATED 1-3 Albuterol 2 puff 03/30/25 13:11 Albuterol Sulfate (*Sp) Aerosol 1 Puff INHALATION QID PRN shortness of breath or wheezing Anastrozole 1 mg 03/31/25 09:00 03/31/25 08:37 Anastrozole (*Chemo) 1 Mg Tablet PO 1 mg DAILY [facility] Administration Apixaban 2.5 mg 03/30/25 13:20 03/31/25 08:37 Apixaban 2.5 Mg Tablet PO 2.5 mg Q12HR [facility] Administration Aspirin 81 mg 03/31/25 09:00 03/31/25 08:37 Aspirin 81 Mg Enteric Tablet PO 81 mg DAILY [facility] Administration Docusate Sodium 100 mg 03/31/25 09:00 03/31/25 08:37 Docusate Sodium 100 Mg Capsule PO 100 mg DAILY [facility] Administration Ergocalciferol 50,000 units 04/07/25 09:00 Ergocalciferol 50,000 Units Capsule PO Sa@0900 [facility] Ferrous Sulfate 325 mg 03/31/25 09:00 03/31/25 08:34 Ferrous Sulfate [address] PO Not Given DAILY [facility] Fluticasone/Umeclidinium/Vilanterol 1 puff 03/31/25 08:00 03/31/25 09:37 Fluticasone/Umeclidin/Vilanter 100-62.5-25 Mcg Ellipta INHALATION 1 puff DAILYRT [facility] Administration Gabapentin 200 mg 03/31/25 09:14 Gabapentin 100 Mg Capsule BY MOUTH TID PRN Muscle/Joint Pain Immune Globulin 20 gm/ Immune 320 mls @ 24 mls/hr 03/30/25 17:00 03/30/25 19:25 Globulin 10 gm/ Immune IVPB 04/04/25 06:19 Infused Globulin 2 gm/ N/A DAILY@1700 [facility] Infusion Lactobacillus Acidophilus 1 tablet 03/31/25 09:00 03/31/25 08:37 Acidophilus/Bulgaricus Chewable Tablet PO 1 tablet DAILY [facility] Administration Levothyroxine Sodium 100 mcg 03/31/25 06:30 03/31/25 05:42 Levothyroxine Sodium 100 Mcg Tablet BY MOUTH 100 mcg DAILY@0630 [facility] Administration Miscellaneous Information 1 each 03/31/25 00:01 Gemtesa Is Nonform; Can Pt Use From Home? XX 04/30/25 00:00 CLARIFY [facility] Multivitamins Therapeutic 1 tablet 03/31/25 09:00 03/31/25 08:37 Multivitamins Therapeutic Tab (*Bkc) PO 1 tablet DAILY [facility] Administration Non-Formulary Medication 75 mg 03/31/25 09:00 Vibegron [Gemtesa] PO 04/30/25 08:59 DAILY [facility] Pantoprazole Sodium 40 mg 03/30/25 21:00 03/31/25 08:36 Pantoprazole 40 Mg Tablet PO 40 mg Q12HR [facility] Administration Prednisone 40 mg 03/31/25 09:00 03/31/25 08:36 Prednisone 20 Mg Tablet PO 40 mg DAILY [facility] Administration Pyridostigmine Sesser 60 mg 03/30/25 17:00 03/31/25 12:15 Pyridostigmine Sesser 60 Mg Tablet PO 60 mg QID [facility] Administration Labs Labs: Laboratory Results - last 24 hr 03/30/25 03/31/25 19:19 04:11 WBC 4.8 RBC 3.66 L Hgb 11.0 L Hct 35.9 L MCV 98.1 MCH 30.1 MCHC 30.6 L RDW 18.5 H Plt Count 163 MPV 11.1 H Sodium 137 Potassium 3.7 Chloride 108 H Carbon Dioxide 30 Anion Gap -1 L BUN 16 Creatinine 0.67 L Estim Creat Clear Calc 60 Estimated GFR > 60 Glucose 89 Calcium 8.8 Magnesium 2.2 TSH (Reflex) 0.632 Urine Color Yellow Urine Appearance Clear Urine pH 6.5 Ur Specific [place] 1.012 Urine Protein Negative Urine Glucose (UA) Negative Urine Ketones Negative Ur Blood (Man) Trace Urine Nitrate Negative Urine Bilirubin Negative Urine Urobilinogen 0.2 Leukocyte Esterase Rfl 3+ H Urine RBC 0-2 Urine WBC 51-100 H Ur Squamous Epith Cells None seen Urine Bacteria None seen Urine Casts 0-2 Quality VTE Prophylaxis VTE prophylaxis: pharmacologic ordered (on apixaban)
--- NOTE | 2025-03-31 14:24 | PC.NURSE ---
This patient, Neha Bliss, was transferred to [facility] on 03/31/25 at 1424. Personal belongings sent with patient. Report given to Kimberly YEBOAH. Appropriate documentation sent with patient.
[2025-03-31] MEDS: ACETAMINOPHEN 325 MG TABLET 650 MG PO (15:04)
--- NOTE | 2025-03-31 16:56 | WPDNEUROPN ---
Progress Note: A&P Assessment and Plan (1) Myasthenia gravis with exacerbation: Code(s): G70.01 - Myasthenia gravis with (acute) exacerbation Status: Acute Plan Patient should continue with IVIG and work with physical therapy and occupational therapy. She lives by herself and safety issues are important. Subjective Date/time seen: 03/31/25 16:56 Interval history: The patient is a 84-year-old with history of myasthenia gravis now is on IVIG. We initiated the treatment with 0.4 g per kilos body weight yesterday. She feels about the same or slightly better. She still not allowed to get up and go to the bathroom. No new symptoms Review of Systems Review of Systems: no shortness of breath or difficulty swallowing. No diplopia. Exam Narrative: Pleasant and cooperative. No aphasia or dysarthria. Examination mental status was normal. Cranial nerves knee individual testing are intact. Ptosis or extraocular muscle weakness. Motor system weakness of lower limbs appear greater than upper limbs and she has difficulty raising on legs a against the gravity although she did manage to get it up some extent. His weakness of the muscles around the shoulder girdle also. Objective Data Vital Signs Vital Signs: Vital Signs - 24 hr 03/30/25 18:00 03/30/25 19:08 03/30/25 20:00 Temperature 98.6 F Pulse Rate 71 76 62 Respiratory Rate 20 Blood Pressure 152/76 H Pulse Oximetry 96 Oxygen Delivery Fraction of Inspired Oxygen 03/30/25 21:30 03/30/25 22:00 03/30/25 23:51 Temperature 98.1 F Pulse Rate 76 65 71 Respiratory Rate 18 Blood Pressure 124/64 Pulse Oximetry 96 95 Oxygen Delivery Room Air Fraction of Inspired Oxygen 21 03/31/25 00:00 03/31/25 04:00 03/31/25 04:00 Temperature 97.7 F Pulse Rate 69 64 65 Respiratory Rate 18 Blood Pressure 139/60 Pulse Oximetry 96 Oxygen Delivery Fraction of Inspired Oxygen 03/31/25 06:00 03/31/25 07:49 03/31/25 08:00 Temperature 98.6 F Pulse Rate 66 79 Respiratory Rate 14 Blood Pressure 143/69 H Pulse Oximetry 95 95 Oxygen Delivery Room Air Fraction of Inspired Oxygen 03/31/25 08:00 03/31/25 09:37 03/31/25 10:36 Temperature Pulse Rate 82 74 Respiratory Rate Blood Pressure Pulse Oximetry 96 Oxygen Delivery Room Air Fraction of Inspired Oxygen 03/31/25 11:51 03/31/25 12:00 03/31/25 15:22 Temperature 99.0 F 97.4 F L Pulse Rate 78 80 74 Respiratory Rate 18 18 Blood Pressure 155/65 H 149/62 H Pulse Oximetry 94 97 Oxygen Delivery Fraction of Inspired Oxygen Intake/Output Intake/Output: Intake & Output 03/28/25 03/29/25 03/30/25 03/31/25 23:59 23:59 23:59 23:59 Intake Total 1100.0 1670 Output Total 50 2350 Balance 1050.0 -680 Meds/Results Medications: Active Medications Generic Name Dose Route Start Last Admin Trade Name Freq PRN Reason Stop Dose Admin Acetaminophen 650 mg 03/30/25 13:11 03/31/25 15:04 Acetaminophen 325 Mg Tablet PO 650 mg Q8H PRN Administration PAIN RATED 1-3 Albuterol 2 puff 03/30/25 13:11 Albuterol Sulfate (*Sp) Aerosol 1 Puff INHALATION QID PRN shortness of breath or wheezing Anastrozole 1 mg 03/31/25 09:00 03/31/25 08:37 Anastrozole (*Chemo) 1 Mg Tablet PO 1 mg DAILY [facility] Administration Apixaban 2.5 mg 03/30/25 13:20 03/31/25 08:37 Apixaban 2.5 Mg Tablet PO 2.5 mg Q12HR [facility] Administration Aspirin 81 mg 03/31/25 09:00 03/31/25 08:37 Aspirin 81 Mg Enteric Tablet PO 81 mg DAILY [facility] Administration Docusate Sodium 100 mg 03/31/25 09:00 03/31/25 08:37 Docusate Sodium 100 Mg Capsule PO 100 mg DAILY [facility] Administration Ergocalciferol 50,000 units 04/07/25 09:00 Ergocalciferol 50,000 Units Capsule PO Sa@0900 [facility] Ferrous Sulfate 325 mg 03/31/25 09:00 03/31/25 08:34 Ferrous Sulfate [address] PO Not Given DAILY [facility] Fluticasone/Umeclidinium/Vilanterol 1 puff 03/31/25 08:00 03/31/25 09:37 Fluticasone/Umeclidin/Vilanter 100-62.5-25 Mcg Ellipta INHALATION 1 puff DAILYRT [facility] Administration Gabapentin 200 mg 03/31/25 09:14 Gabapentin 100 Mg Capsule BY MOUTH TID PRN Muscle/Joint Pain Immune Globulin 20 gm/ Immune 320 mls @ 24 mls/hr 03/30/25 17:00 03/30/25 19:25 Globulin 10 gm/ Immune IVPB 04/04/25 06:19 Infused Globulin 2 gm/ N/A DAILY@1700 [facility] Infusion Lactobacillus Acidophilus 1 tablet 03/31/25 09:00 03/31/25 08:37 Acidophilus/Bulgaricus Chewable Tablet PO 1 tablet DAILY [facility] Administration Levothyroxine Sodium 100 mcg 03/31/25 06:30 03/31/25 05:42 Levothyroxine Sodium 100 Mcg Tablet BY MOUTH 100 mcg DAILY@0630 [facility] Administration Miscellaneous Information 1 each 03/31/25 00:01 Gemtesa Is Nonform; Can Pt Use From Home? XX 04/30/25 00:00 [facility] Multivitamins Therapeutic 1 tablet 03/31/25 09:00 03/31/25 08:37 Multivitamins Therapeutic Tab (*Bkc) PO 1 tablet DAILY [facility] Administration Non-Formulary Medication 75 mg 03/31/25 09:00 Vibegron [Gemtesa] PO 04/30/25 08:59 DAILY [facility] Pantoprazole Sodium 40 mg 03/30/25 21:00 03/31/25 08:36 Pantoprazole 40 Mg Tablet PO 40 mg Q12HR [facility] Administration Prednisone 40 mg 03/31/25 09:00 03/31/25 08:36 Prednisone 20 Mg Tablet PO 40 mg DAILY [facility] Administration Pyridostigmine [place] 60 mg 03/30/25 17:00 03/31/25 12:15 Pyridostigmine [place] 60 Mg Tablet PO 60 mg QID [facility] Administration Labs Labs: Laboratory Results - last 24 hr 03/30/25 03/31/25 19:19 04:11 WBC 4.8 RBC 3.66 L Hgb 11.0 L Hct 35.9 L MCV 98.1 MCH 30.1 MCHC 30.6 L RDW 18.5 H Plt Count 163 MPV 11.1 H Sodium 137 Potassium 3.7 Chloride 108 H Carbon Dioxide 30 Anion Gap -1 L BUN 16 Creatinine 0.67 L Estim Creat Clear Calc 60 Estimated GFR > 60 Glucose 89 Calcium 8.8 Magnesium 2.2 TSH (Reflex) 0.632 Urine Color Yellow Urine Appearance Clear Urine pH 6.5 Ur Specific [place] 1.012 Urine Protein Negative Urine Glucose (UA) Negative Urine Ketones Negative Ur Blood (Man) Trace Urine Nitrate Negative Urine Bilirubin Negative Urine Urobilinogen 0.2 Leukocyte Esterase Rfl 3+ H Urine RBC 0-2 Urine WBC 51-100 H Ur Squamous Epith Cells None seen Urine Bacteria None seen Urine Casts 0-2
[2025-03-31] MEDS: PREMIXIV IVPB (17:51)
[2025-03-31] MEDS: IMMUNE GLOBULIN IVPB (17:51)
[2025-04-01] VITALS (8 sets, daily range): BP systolic 115–137; BP diastolic 51–61; PULSE 66–87; RESP 17–20; TEMP 36.4–37.6; O2SAT 94–98
[2025-04-01 05:06] LABS: Hemoglobin 10.6 g/dL (12.0-15.0); Mean Corpuscular HGB Conc 31.2 g/dl (32-36); Mean Corpuscular Hemoglobin 29.8 pg (26-34); Mean Corpuscular Volume 95.5 fl (80-100); Mean Platelet Volume 10.5 fl (7.4-10.4); Platelet Count Result 160 k/mm3 (150-375); Red Blood Count 3.56 M/mm3 (4.2-5.4); Red Cell Distribution Width 18.1 % (11.5-14.5); White Blood Count 4.3 K/mm3 (4.5-10.0)
[2025-04-01 05:22] LABS: Alanine Aminotransferase 23 U/L (6-35); Albumin Level 3.2 g/dL (3.5-5.1); Alkaline Phosphatase 28 U/L (38-126); Anion Gap -2 mmol/L (4-12); Aspartate Amino Transferase 23 U/L (14-36); Bilirubin,Total 0.4 mg/dL (0.2-1.3); Blood Urea Nitrogen 20 mg/dL (7-17); Calcium 8.6 mg/dL (8.4-10.2); Carbon Dioxide 29 mmol/L (22-30); Chloride 109 mmol/L (98-107); Estimated CRCL calculation 55 ml/min; Estimated Glomerular Filt Rate > 60; Glucose 94 mg/dL (65-110); Magnesium 2.1 mg/dL (1.6-2.3); Potassium 3.7 mmol/L (3.4-5.0); Sodium 136 mmol/L (137-145)
[2025-04-01] MEDS: LEVOTHYROXINE SODIUM 100 MCG TABLET BY MOUTH (06:21)
[2025-04-01] MEDS: FLUTICASONE/UMECLIDIN/VILANTER 100-62.5-25 MCG ELLIPTA 1 PUFF INHALATION (07:43)
[2025-04-01] MEDS: predniSONE 20 MG TABLET 40 MG PO (08:26)
[2025-04-01] MEDS: PANTOPRAZOLE 40 MG TABLET PO ×2 (08:26→20:39)
[2025-04-01] MEDS: ANASTROZOLE (*CHEMO) 1 MG TABLET PO (08:26)
[2025-04-01] MEDS: ACIDOPHILUS/BULGARICUS CHEWABLE TABLET 1 TABLET PO (08:26)
[2025-04-01] MEDS: FERROUS SULFATE 325 MG TABLET DR PO (08:26)
[2025-04-01] MEDS: APIXABAN 2.5 MG TABLET PO ×2 (08:27→20:39)
[2025-04-01] MEDS: ASPIRIN 81 MG ENTERIC TABLET PO (08:27)
[2025-04-01] MEDS: DOCUSATE SODIUM 100 MG CAPSULE PO (08:27)
[2025-04-01] MEDS: pyRIDostigmine bromide 60 MG TABLET PO ×4 (08:27→20:39)
[2025-04-01] MEDS: MULTIVITAMINS THERAPEUTIC TAB (*BKC) 1 TABLET PO (08:27)
--- NOTE | 2025-04-01 13:06 | PM.IMPN ---
Progress Note: A&P Assessment and Plan (1) Myasthenia gravis with exacerbation: Code(s): G70.01 - Myasthenia gravis with (acute) exacerbation Status: Acute (2) Chronic anticoagulation: Code(s): Z79.01 - senior living (current) use of anticoagulants Status: Acute (3) Asthma: Code(s): J45.909 - Unspecified asthma, uncomplicated Status: Acute (4) Hypothyroidism: Code(s): E03.9 - Hypothyroidism, unspecified Status: Acute (5) Barretts esophagus: Code(s): K22.70 - Shine's esophagus without dysplasia Status: Acute (6) Mucinous carcinoma of left breast: Code(s): C50.912 - Malignant neoplasm of unspecified site of left female breast Status: Acute Plan The patient presented to the emergency department with complaints of ongoing weakness despite having been started on prednisone 40 mg daily and pyridostigmine for myasthenia gravis which was diagnosed in October 2024 as detailed in HPI. Labs, imaging, EKG, and all reports were personally reviewed. Dr. Esquivel has been consulted and it is my understanding that he will be starting her on IVIG. Continue pyridostigmine and prednisone. Chronic issues without acute problems include history of DVT/PE on anticoagulation, breast cancer on anastrozole, asthma, hypothyroidism, and Shine esophagus. Her home medications will be reviewed and resumed as appropriate. Findings and treatment plan were discussed with the patient. Questions were solicited and answered to satisfaction. The patient's medical management will be taken over by the hospitalist team in a.m. patient with myasthenia gravis with generalized weakness and difficulty with ADL, patient has been on pyridostigmine and prednisone 40 mg daily since, patient was seen by neurologist and recommend patient will benefit from infusion of IVIG at 0.4 gram/kilos body weight daily for 3/5 days. this has been started and will start patient on PT/OT this will help with her physical activities and patient will benefit going into acute rehab. Subjective Date/time seen: 04/01/25 13:06 Interval history: H&P-Narrative: This is an 84-year-old female with history of myasthenia gravis, cerebrovascular accident, hyperlipidemia, pulmonary embolism on chronic anticoagulation, Shine esophagus, asthma, hypothyroidism, and breast cancer who presented to the emergency department with complaints of weakness. She was diagnosed with myasthenia gravis in October 2024 and she has been on pyridostigmine and prednisone 40 mg daily since that time. She saw Dr. Esquivel in follow-up earlier this week at which time she admitted that she was still not back to normal. She continues to have issues getting up from a chair and at times her speech and swallowing seem to be affected as well. When she is especially sleepy she has noticed that her left eye droops. At time she is short of breath but that is rare. She denies current visual changes, vertigo, focal weakness, paresthesias, chest pain, shortness of breath, cold and flu symptoms, nausea, vomiting, diarrhea, and dysuria. patient with myasthenia gravis with generalized weakness and difficulty with ADL, patient has been on pyridostigmine and prednisone 40 mg daily since, patient was seen by neurologist and recommend patient will benefit from infusion of IVIG at 0.4 gram/kilos body weight daily for 3/5 days. this has been started and will start patient on PT/OT this will help with her physical activities and patient will benefit going into acute rehab. Review of Systems Review of Systems: 12 systems were reviewed and are negative except for as per HPI. Exam Narrative: Elderly frail Patient is comfortable, NAD HEENT: eyes are clear and none icteric LUNGS:CTA HEART: RR S1S2 ABD: BS+, Soft and nontender Lower extremities: no edema SKIN: nonjaundiced Neuro: grossly intact. Objective Data Vital Signs Vital Signs: Vital Signs - 24 hr 03/31/25 15:22 03/31/25 16:00 03/31/25 18:46 Temperature 36.3 C L Pulse Rate 74 68 Respiratory Rate 18 Blood Pressure 149/62 H Pulse Oximetry 97 Oxygen Delivery Room Air 03/31/25 20:00 03/31/25 20:00 03/31/25 20:00 Temperature 36.3 C L Pulse Rate 69 82 Respiratory Rate 20 Blood Pressure 116/50 L Pulse Oximetry 100 Oxygen Delivery Room Air 03/31/25 20:39 04/01/25 00:00 04/01/25 00:00 Temperature 37.3 C Pulse Rate 69 66 Respiratory Rate 18 Blood Pressure 137/60 Pulse Oximetry 96 97 Oxygen Delivery Room Air 04/01/25 04:00 04/01/25 04:00 04/01/25 08:00 Temperature 37.6 C 36.5 C Pulse Rate 75 69 80 Respiratory Rate 18 18 Blood Pressure 126/57 L 123/59 L Pulse Oximetry 96 98 Oxygen Delivery 04/01/25 08:00 04/01/25 08:00 04/01/25 08:30 Temperature Pulse Rate 84 Respiratory Rate Blood Pressure Pulse Oximetry Oxygen Delivery Room Air Room Air 04/01/25 08:37 04/01/25 12:00 Temperature 36.6 C Pulse Rate 67 Respiratory Rate 18 Blood Pressure 121/55 L Pulse Oximetry 94 Oxygen Delivery Room Air Intake/Output Intake/Output: Intake & Output 03/29/25 03/30/25 03/31/25 04/01/25 23:59 23:59 23:59 23:59 Intake Total 1100.0 2260.0 540 Output Total 50 2350 Balance 1050.0 -90.0 540 Meds/Results Medications: Active Medications Generic Name Dose Route Start Last Admin Trade Name Freq PRN Reason Stop Dose Admin Acetaminophen 650 mg 03/30/25 13:11 03/31/25 15:04 Acetaminophen 325 Mg Tablet PO 650 mg Q8H PRN Administration PAIN RATED 1-3 Albuterol 2 puff 03/30/25 13:11 Albuterol Sulfate (*Sp) Aerosol 1 Puff INHALATION QID PRN shortness of breath or wheezing Anastrozole 1 mg 03/31/25 09:00 04/01/25 08:26 Anastrozole (*Chemo) 1 Mg Tablet PO 1 mg DAILY [facility] Administration Apixaban 2.5 mg 03/30/25 13:20 04/01/25 08:27 Apixaban 2.5 Mg Tablet PO 2.5 mg Q12HR [facility] Administration Aspirin 81 mg 03/31/25 09:00 04/01/25 08:27 Aspirin 81 Mg Enteric Tablet PO 81 mg DAILY [facility] Administration Docusate Sodium 100 mg 03/31/25 09:00 04/01/25 08:27 Docusate Sodium 100 Mg Capsule PO 100 mg DAILY [facility] Administration Ergocalciferol 50,000 units 04/07/25 09:00 Ergocalciferol 50,000 Units Capsule PO Sa@0900 [facility] Ferrous Sulfate 325 mg 03/31/25 09:00 04/01/25 08:26 Ferrous Sulfate [address] PO 325 mg DAILY [facility] Administration Fluticasone/Umeclidinium/Vilanterol 1 puff 03/31/25 08:00 04/01/25 07:43 Fluticasone/Umeclidin/Vilanter 100-62.5-25 Mcg Ellipta INHALATION 1 puff DAILYRT [facility] Administration Gabapentin 200 mg 03/31/25 09:14 Gabapentin 100 Mg Capsule BY MOUTH TID PRN Muscle/Joint Pain Immune Globulin 20 gm/ Immune 320 mls @ 24 mls/hr 03/30/25 17:00 03/31/25 21:27 Globulin 10 gm/ Immune IVPB 04/04/25 06:19 Infused Globulin 2 gm/ N/A DAILY@1700 [facility] Infusion Lactobacillus Acidophilus 1 tablet 03/31/25 09:00 04/01/25 08:26 Acidophilus/Bulgaricus Chewable Tablet PO 1 tablet DAILY [facility] Administration Levothyroxine Sodium 100 mcg 03/31/25 06:30 04/01/25 06:21 Levothyroxine Sodium 100 Mcg Tablet BY MOUTH 100 mcg DAILY@0630 [facility] Administration Miscellaneous Information 1 each 03/31/25 00:01 04/01/25 05:27 Gemtesa Is Nonform; Can Pt Use From Home? XX 04/30/25 00:00 Not Given [facility] Multivitamins Therapeutic 1 tablet 03/31/25 09:00 04/01/25 08:27 Multivitamins Therapeutic Tab (*Bkc) PO 1 tablet DAILY [facility] Administration Non-Formulary Medication 75 mg 03/31/25 09:00 Vibegron [Gemtesa] PO 04/30/25 08:59 DAILY [facility] Pantoprazole Sodium 40 mg 03/30/25 21:00 04/01/25 08:26 Pantoprazole 40 Mg Tablet PO 40 mg Q12HR [facility] Administration Prednisone 40 mg 03/31/25 09:00 04/01/25 08:26 Prednisone 20 Mg Tablet PO 40 mg DAILY [facility] Administration Pyridostigmine [place] 60 mg 03/30/25 17:00 04/01/25 08:27 Pyridostigmine [place] 60 Mg Tablet PO 60 mg QID [facility] Administration Labs Labs: Laboratory Results - last 24 hr 04/01/25 04:33 WBC 4.3 L RBC 3.56 L Hgb 10.6 L Hct 34.0 L MCV 95.5 MCH 29.8 MCHC 31.2 L RDW 18.1 H Plt Count 160 MPV 10.5 H Sodium 136 L Potassium 3.7 Chloride 109 H Carbon Dioxide 29 Anion Gap -2 L BUN 20 H Creatinine 0.64 L Estim Creat Clear Calc 55 Estimated GFR > 60 Glucose 94 Calcium 8.6 Magnesium 2.1 Total Bilirubin 0.4 AST 23 ALT 23 Alkaline Phosphatase 28 L Total Protein 7.0 Albumin 3.2 L Quality VTE Prophylaxis VTE prophylaxis: pharmacologic ordered (on apixaban)
[2025-04-01] MEDS: PREMIXIV IVPB (18:41)
[2025-04-01] MEDS: IMMUNE GLOBULIN IVPB (18:41)
[2025-04-01] MEDS: GABAPENTIN 100 MG CAPSULE 200 MG BY MOUTH (20:38)
[2025-04-02] VITALS (9 sets, daily range): BP systolic 114–137; BP diastolic 36–62; PULSE 67–86; RESP 16–20; TEMP 36.4–36.9; O2SAT 93–98
[2025-04-02] MEDS: LEVOTHYROXINE SODIUM 100 MCG TABLET BY MOUTH (05:09)
[2025-04-02 05:59] LABS: Hematocrit 36.7 % (37.0-47.0); Hemoglobin 11.2 g/dL (12.0-15.0); Mean Corpuscular HGB Conc 30.5 g/dl (32-36); Mean Corpuscular Hemoglobin 30.3 pg (26-34); Mean Corpuscular Volume 99.2 fl (80-100); Mean Platelet Volume 10.9 fl (7.4-10.4); Platelet Count Result 155 k/mm3 (150-375); Red Cell Distribution Width 18.5 % (11.5-14.5); White Blood Count 3.8 K/mm3 (4.5-10.0)
[2025-04-02 06:41] LABS: Alanine Aminotransferase 29 U/L (6-35); Albumin Level 3.5 g/dL (3.5-5.1); Alkaline Phosphatase 29 U/L (38-126); Anion Gap 2 mmol/L (4-12); Aspartate Amino Transferase 29 U/L (14-36); Bilirubin,Total 0.3 mg/dL (0.2-1.3); Blood Urea Nitrogen 22 mg/dL (7-17); Calcium 8.8 mg/dL (8.4-10.2); Carbon Dioxide 29 mmol/L (22-30); Chloride 106 mmol/L (98-107); Estimated CRCL calculation 55 ml/min; Estimated Glomerular Filt Rate > 60; Glucose 92 mg/dL (65-110); Magnesium 2.3 mg/dL (1.6-2.3); Sodium 137 mmol/L (137-145)
[2025-04-02] MEDS: FLUTICASONE/UMECLIDIN/VILANTER 100-62.5-25 MCG ELLIPTA 1 PUFF INHALATION (07:43)
[2025-04-02] MEDS: FERROUS SULFATE 325 MG TABLET DR PO (09:08)
[2025-04-02] MEDS: pyRIDostigmine bromide 60 MG TABLET PO ×4 (09:08→21:54)
[2025-04-02] MEDS: PANTOPRAZOLE 40 MG TABLET PO ×2 (09:08→21:54)
[2025-04-02] MEDS: MULTIVITAMINS THERAPEUTIC TAB (*BKC) 1 TABLET PO (09:08)
[2025-04-02] MEDS: ASPIRIN 81 MG ENTERIC TABLET PO (09:08)
[2025-04-02] MEDS: APIXABAN 2.5 MG TABLET PO ×2 (09:08→21:54)
[2025-04-02] MEDS: DOCUSATE SODIUM 100 MG CAPSULE PO (09:09)
[2025-04-02] MEDS: ACIDOPHILUS/BULGARICUS CHEWABLE TABLET 1 TABLET PO (09:09)
[2025-04-02] MEDS: ANASTROZOLE (*CHEMO) 1 MG TABLET PO (09:09)
[2025-04-02] MEDS: predniSONE 20 MG TABLET 40 MG PO (09:09)
--- NOTE | 2025-04-02 15:00 | P.PNIM_ITS ---
Progress Note: A&P Assessment and Plan (1) Myasthenia gravis with exacerbation: Code(s): G70.01 - Myasthenia gravis with (acute) exacerbation Status: Acute (2) Chronic anticoagulation: Code(s): Z79.01 - nursing home (current) use of anticoagulants Status: Acute (3) Asthma: Code(s): J45.909 - Unspecified asthma, uncomplicated Status: Acute (4) Hypothyroidism: Code(s): E03.9 - Hypothyroidism, unspecified Status: Acute (5) Barretts esophagus: Code(s): K22.70 - Shine's esophagus without dysplasia Status: Acute (6) Mucinous carcinoma of left breast: Code(s): C50.912 - Malignant neoplasm of unspecified site of left female breast Status: Acute Plan The patient presented to the emergency department with complaints of ongoing weakness despite having been started on prednisone 40 mg daily and pyridosti gmine for myasthenia gravis which was diagnosed in October 2024 as detailed in HPI. Labs, imaging, EKG, and all reports were personally reviewed. Dr. Esquivel has been consulted and it is my understanding that he will be starting her on IVIG. Continue pyridostigmine and prednisone. Chronic issues without acute problems include history of DVT/PE on anticoagulation, breast cancer on anastrozole, asthma, hypothyroidism, and Shine esophagus. Her home medications will be reviewed and resumed as appropriate. Findings and treatment plan were discussed with the patient. Questions were solicited and answered to satisfaction. The patient's medical management will be taken over by the hospitalist team in a.m. patient with myasthenia gravis with generalized weakness and difficulty with ADL, patient has been on pyridostigmine and prednisone 40 mg daily since, patient was seen by neurologist and recommend patient will benefit from infusion of IVIG at 0.4 gram/kilos body weight daily for 4/5 days. this has been started and will start patient on PT/OT this will help with her physical activities and patient will benefit going into acute rehab. Today patient c/o LUQ pain, denies any nausea, vomiting, or constipation, will do abdominal US to further evaluate. Subjective Date/time seen: 04/02/25 15:00 Interval history: H&P-Narrative: This is an 84-year-old female with history of myasthenia gravis, cerebrovascular accident, hyperlipidemia, pulmonary embolism on chronic anticoagulation, Shine esophagus, asthma, hypothyroidism, and breast cancer who presented to the emergency department with complaints of weakness. She was diagnosed with myasthenia gravis in October 2024 and she has been on pyridostigmine and prednisone 40 mg daily since that time. She saw Dr. Esquivel in follow-up earlier this week at which time she admitted that she was still not back to normal. She continues to have issues getting up from a chair and at times her speech and swallowing seem to be affected as well. When she is especially sleepy she has noticed that her left eye droops. At time she is short of breath but that is rare. She denies current visual changes, vertigo, focal weakness, paresthesias, chest pain, shortness of breath, cold and flu symptoms, nausea, vomiting, diarrhea, and dysuria. patient with myasthenia gravis with generalized weakness and difficulty with ADL, patient has been on pyridostigmine and prednisone 40 mg daily since, patient was seen by neurologist and recommend patient will benefit from infusion of IVIG at 0.4 gram/kilos body weight daily for 4/5 days. this has been started and will start patient on PT/OT this will help with her physical activities and patient will benefit going into acute rehab. Today patient c/o LUQ pain, denies any nausea, vomiting, or constipation, will do abdominal US to further evaluate. Review of Systems Review of Systems: 12 systems were reviewed and are negativ e except for as per HPI. Exam Narrative: Elderly frail Patient is comfortable, NAD HEENT: eyes are clear and none icteric LUNGS:CTA HEART: RR S1S2 ABD: BS+, Soft and nontender Lower extremities: no edema SKIN: nonjaundiced Neuro: grossly intact. Objective Data Vital Signs Vital Signs: Vital Signs - 24 hr 04/01/25 16:00 04/01/25 16:00 04/01/25 19:07 Temperature 36.4 C Pulse Rate 73 68 87 Respiratory Rate 18 20 Blood Pressure 117/61 Pulse Oximetry 97 95 Oxygen Delivery Room Air Fraction of Inspired Oxygen 21 04/01/25 20:00 04/01/25 20:00 04/01/25 23:58 Temperature 36.9 C 36.4 C Pulse Rate 72 87 73 Respiratory Rate 18 17 Blood Pressure 115/51 L 136/54 L Pulse Oximetry 97 98 Oxygen Delivery Fraction of Inspired Oxygen 04/02/25 00:00 04/02/25 03:42 04/02/25 04:00 Temperature 36.7 C Pulse Rate 67 74 68 Respiratory Rate 18 Blood Pressure 126/56 L Pulse Oximetry 94 Oxygen Delivery Fraction of Inspired Oxygen 04/02/25 08:00 04/02/25 08:00 04/02/25 09:15 Temperature 36.5 C Pulse Rate 76 80 Respiratory Rate 19 Blood Pressure 128/62 Pulse Oximetry 93 Oxygen Delivery Room Air Fraction of Inspired Oxygen 04/02/25 12:00 Temperature 36.4 C Pulse Rate 78 Respiratory Rate 19 Blood Pressure 125/60 Pulse Oximetry 93 Oxygen Delivery Fraction of Inspired Oxygen Intake/Output Intake/Output: Intake & Output 03/30/25 03/31/25 04/01/25 04/02/25 23:59 23:59 23:59 23:59 Intake Total 1100.0 2260.0 1374.4 960 Output Total 50 2350 Balance 1050.0 -90.0 1374.4 960 Meds/Results Medications: Active Medications Generic Name Dose Route Start Last Admin Trade Name Freq PRN Reason Stop Dose Admin Acetaminophen 650 mg 03/30/25 13:11 03/31/25 15:04 Acetaminophen 325 Mg Tablet PO 650 mg Q8H PRN Administration PAIN RATED 1-3 Albuterol 2 puff 03/30/25 13:11 Albuterol Sulfate (*Sp) Aerosol 1 Puff INHALATION QID PRN shortness of breath or wheezing Anastrozole 1 mg 03/31/25 09:00 04/02/25 09:09 Anastrozole (*Chemo) 1 Mg Tablet PO 1 mg DAILY [facility] Administration Apixaban 2.5 mg 03/30/25 13:20 04/02/25 09:08 Apixaban 2.5 Mg Tablet PO 2.5 mg Q12HR [facility] Administration Aspirin 81 mg 03/31/25 09:00 04/02/25 09:08 Aspirin 81 Mg Enteric Tablet PO 81 mg DAILY [facility] Administration Docusate Sodium 100 mg 03/31/25 09:00 04/02/25 09:09 Docusate Sodium 100 Mg Capsule PO 100 mg DAILY [facility] Administration Ergocalciferol 50,000 units 04/07/25 09:00 Ergocalciferol 50,000 Units Capsule PO Sa@0900 [facility] Ferrous Sulfate 325 mg 03/31/25 09:00 04/02/25 09:08 Ferrous Sulfate [address] PO 325 mg DAILY [facility] Administration Fluticasone/Umeclidinium/Vilanterol 1 puff 03/31/25 08:00 04/02/25 07:43 Fluticasone/Umeclidin/Vilanter 100-62.5-25 Mcg Ellipta INHALATION 1 puff DAILYRT [facility] Administration Gabapentin 200 mg 03/31/25 09:14 04/01/25 20:38 Gabapentin 100 Mg Capsule BY MOUTH 200 mg TID PRN Administration Muscle/Joint Pain Immune Globulin 20 gm/ Immune 320 mls @ 24 mls/hr 03/30/25 17:00 04/01/25 18:52 Globulin 10 gm/ Immune IVPB 04/04/25 06:19 48 mls/hr Globulin 2 gm/ N/A DAILY@1700 [facility] Infusion Lactobacillus Acidophilus 1 tablet 03/31/25 09:00 04/02/25 09:09 Acidophilus/Bulgaricus Chewable Tablet PO 1 tablet DAILY [facility] Administration Levothyroxine Sodium 100 mcg 03/31/25 06:30 04/02/25 05:09 Levothyroxine Sodium 100 Mcg Tablet BY MOUTH 100 mcg DAILY@0630 [facility] Administration Miscellaneous Information 1 each 03/31/25 00:01 04/01/25 05:27 Gemtesa Is Nonform; Can Pt Use From Home? XX 04/30/25 00:00 Not Given [facility] Multivitamins Therapeutic 1 tablet 03/31/25 09:00 04/02/25 09:08 Multivitamins Therapeutic Tab (*Bkc) PO 1 tablet DAILY [facility] Administration Non-Formulary Medication 75 mg 03/31/25 09:00 Vibegron [Gemtesa] PO 04/30/25 08:59 DAILY [facility] Pantoprazole Sodium 40 mg 03/30/25 21:00 04/02/25 09:08 Pantoprazole 40 Mg Tablet PO 40 mg Q12HR [facility] Administration Prednisone 40 mg 03/31/25 09:00 04/02/25 09:09 Prednisone 20 Mg Tablet PO 40 mg DAILY [facility] Administration Pyridostigmine [place] 60 mg 03/30/25 17:00 04/02/25 12:12 Pyridostigmine [place] 60 Mg Tablet PO 60 mg QID [facility] Administration Labs Labs: Laboratory Results - last 24 hr 04/02/25 05:00 WBC 3.8 L RBC 3.70 L Hgb 11.2 L Hct 36.7 L MCV 99.2 MCH 30.3 MCHC 30.5 L RDW 18.5 H Plt Count 155 MPV 10.9 H Sodium 137 Potassium 4.0 Chloride 106 Carbon Dioxide 29 Anion Gap 2 L BUN 22 H Creatinine 0.75 Estim Creat Clear Calc 55 Estimated GFR > 60 Glucose 92 Calcium 8.8 Magnesium 2.3 Total Bilirubin 0.3 AST 29 ALT 29 Alkaline Phosphatase 29 L Total Protein 8.0 Albumin 3.5 Quality VTE Prophylaxis VTE prophylaxis: pharmacologic ordered (on apixaban)
[2025-04-02] MEDS: PREMIXIV IVPB (17:09)
[2025-04-02] MEDS: IMMUNE GLOBULIN IVPB (17:09)
[2025-04-02] MEDS: GABAPENTIN 100 MG CAPSULE 200 MG BY MOUTH (21:53)
[2025-04-03 03:43] VITALS: BP 124/63; PULSE 69; RESP 16; TEMP 36.8; O2SAT 98
[2025-04-03 06:16] LABS: Hematocrit 39.9 % (37.0-47.0); Hemoglobin 12.2 g/dL (12.0-15.0); Mean Corpuscular HGB Conc 30.6 g/dl (32-36); Mean Corpuscular Hemoglobin 30.2 pg (26-34); Mean Corpuscular Volume 98.8 fl (80-100); Mean Platelet Volume 10.9 fl (7.4-10.4); Platelet Count Result 171 k/mm3 (150-375); Red Blood Count 4.04 M/mm3 (4.2-5.4); Red Cell Distribution Width 18.3 % (11.5-14.5); White Blood Count 3.9 K/mm3 (4.5-10.0)
[2025-04-03 06:32] LABS: Alanine Aminotransferase 28 U/L (6-35); Albumin Level 3.8 g/dL (3.5-5.1); Alkaline Phosphatase 32 U/L (38-126); Anion Gap 3 mmol/L (4-12); Aspartate Amino Transferase 27 U/L (14-36); Bilirubin,Total 0.4 mg/dL (0.2-1.3); Blood Urea Nitrogen 20 mg/dL (7-17); Carbon Dioxide 30 mmol/L (22-30); Chloride 105 mmol/L (98-107); Estimated CRCL calculation 51 ml/min; Estimated Glomerular Filt Rate > 60; Glucose 87 mg/dL (65-110); Magnesium 2.2 mg/dL (1.6-2.3); Potassium 4.1 mmol/L (3.4-5.0); Sodium 138 mmol/L (137-145)
[2025-04-03] MEDS: LEVOTHYROXINE SODIUM 100 MCG TABLET BY MOUTH (06:33)
[2025-04-03 08:00] VITALS: BP 138/64; PULSE 82; RESP 16; TEMP 36.7; O2SAT 95
[2025-04-03] MEDS: FLUTICASONE/UMECLIDIN/VILANTER 100-62.5-25 MCG ELLIPTA 1 PUFF INHALATION (08:26)
[2025-04-03 08:27] VITALS: O2SAT 97
[2025-04-03] MEDS: ACIDOPHILUS/BULGARICUS CHEWABLE TABLET 1 TABLET PO (08:41)
[2025-04-03] MEDS: pyRIDostigmine bromide 60 MG TABLET PO ×4 (08:41→22:05)
[2025-04-03] MEDS: predniSONE 20 MG TABLET 40 MG PO (08:41)
[2025-04-03] MEDS: APIXABAN 2.5 MG TABLET PO ×2 (08:41→22:05)
[2025-04-03] MEDS: ASPIRIN 81 MG ENTERIC TABLET PO (08:42)
[2025-04-03] MEDS: PANTOPRAZOLE 40 MG TABLET PO ×2 (08:42→22:05)
[2025-04-03] MEDS: FERROUS SULFATE 325 MG TABLET DR PO (08:42)
[2025-04-03] MEDS: ANASTROZOLE (*CHEMO) 1 MG TABLET PO (08:42)
[2025-04-03] MEDS: DOCUSATE SODIUM 100 MG CAPSULE PO (08:42)
[2025-04-03] MEDS: MULTIVITAMINS THERAPEUTIC TAB (*BKC) 1 TABLET PO (08:43)
[2025-04-03 12:00] VITALS: BP 130/72; PULSE 73; RESP 16; TEMP 36.8; O2SAT 95
--- NOTE | 2025-04-03 15:45 | PM.IMPN ---
Progress Note: A&P Assessment and Plan (1) Myasthenia gravis with exacerbation: Code(s): G70.01 - Myasthenia gravis with (acute) exacerbation Status: Acute (2) Chronic anticoagulation: Code(s): Z79.01 - [facility] (current) use of anticoagulants Status: Acute (3) Asthma: Code(s): J45.909 - Unspecified asthma, uncomplicated Status: Acute (4) Hypothyroidism: Code(s): E03.9 - Hypothyroidism, unspecified Status: Acute (5) Barretts esophagus: Code(s): K22.70 - Shine's esophagus without dysplasia Status: Acute (6) Mucinous carcinoma of left breast: Code(s): C50.912 - Malignant neoplasm of unspecified site of left female breast Status: Acute Plan The patient presented to the emergency department with complaints of ongoing weakness despite having been started on prednisone 40 mg daily and pyridostigmine for myasthenia gravis which was diagnosed in October 2024 as detailed in HPI. Labs, imaging, EKG, and all reports were personally reviewed. Dr. Esquivel has been consulted and it is my understanding that he will be starting her on IVIG. Continue pyridostigmine and prednisone. Chronic issues without acute problems include history of DVT/PE on anticoagulation, breast cancer on anastrozole, asthma, hypothyroidism, and Shine esophagus. Her home medications will be reviewed and resumed as appropriate. Findings and treatment plan were discussed with the patient. Questions were solicited and answered to satisfaction. The patient's medical management will be taken over by the hospitalist team in a.m. patient with myasthenia gravis with generalized weakness and difficulty with ADL, patient has been on pyridostigmine and prednisone 40 mg daily since, patient was seen by neurologist and recommend patient will benefit from infusion of IVIG at 0.4 gram/kilos body weight daily for 4/5 days. later today patient will receive her last dose of IVIG, this has been started and will start patient on PT/OT this will help with her physical activities and patient will benefit going into acute rehab. on 04/02 patient c/o LUQ pain, denies any nausea, vomiting, or constipation, to further evaluate patient abdominal US which is essentially normal and pain has also improved, will monitor possibly discharge patient tomorrow. Subjective Date/time seen: 04/03/25 15:45 Interval history: H&P-Narrative: This is an 84-year-old female with history of myasthenia gravis, cerebrovascular accident, hyperlipidemia, pulmonary embolism on chronic anticoagulation, Shine esophagus, asthma, hypothyroidism, and breast cancer who presented to the emergency department with complaints of weakness. She was diagnosed with myasthenia gravis in October 2024 and she has been on pyridostigmine and prednisone 40 mg daily since that time. She saw Dr. Esquivel in follow-up earlier this week at which time she admitted that she was still not back to normal. She continues to have issues getting up from a chair and at times her speech and swallowing seem to be affected as well. When she is especially sleepy she has noticed that her left eye droops. At time she is short of breath but that is rare. She denies current visual changes, vertigo, focal weakness, paresthesias, chest pain, shortness of breath, cold and flu symptoms, nausea, vomiting, diarrhea, and dysuria. patient with myasthenia gravis with generalized weakness and difficulty with ADL, patient has been on pyridostigmine and prednisone 40 mg daily since, patient was seen by neurologist and recommend patient will benefit from infusion of IVIG at 0.4 gram/kilos body weight daily for 4/5 days. later today patient will receive her last dose of IVIG, this has been started and will start patient on PT/OT this will help with her physical activities and patient will benefit going into acute rehab. on 04/02 patient c/o LUQ pain, denies any nausea, vomiting, or constipation, to further evaluate patient abdominal US which is essentially normal and pain has also improved, will monitor possibly discharge patient tomorrow. Review of Systems Review of Systems: 12 systems were reviewed and are negative except for as per HPI. Exam Narrative: Elderly frail Patient is comfortable, NAD HEENT: eyes are clear and none icteric LUNGS:CTA HEART: RR S1S2 ABD: BS+, Soft and nontender Lower extremities: no edema SKIN: nonjaundiced Neuro: grossly intact. Objective Data Vital Signs Vital Signs: Vital Signs - 24 hr 04/02/25 16:00 04/02/25 19:27 04/02/25 20:00 Temperature 36.5 C 36.8 C Pulse Rate 82 72 Respiratory Rate 18 16 Blood Pressure 114/62 137/58 L Pulse Oximetry 96 98 Oxygen Delivery Room Air Fraction of Inspired Oxygen 04/02/25 21:28 04/02/25 23:30 04/03/25 03:43 Temperature 36.9 C 36.8 C Pulse Rate 82 77 69 Respiratory Rate 20 17 16 Blood Pressure 118/36 L 124/63 Pulse Oximetry 96 97 98 Oxygen Delivery Room Air Fraction of Inspired Oxygen 21 04/03/25 08:00 04/03/25 08:27 04/03/25 08:40 Temperature 36.7 C Pulse Rate 82 Respiratory Rate 16 Blood Pressure 138/64 Pulse Oximetry 95 97 Oxygen Delivery Room Air Room Air Fraction of Inspired Oxygen 04/03/25 12:00 Temperature 36.8 C Pulse Rate 73 Respiratory Rate 16 Blood Pressure 130/72 Pulse Oximetry 95 Oxygen Delivery Fraction of Inspired Oxygen Intake/Output Intake/Output: Intake & Output 03/31/25 04/01/25 04/02/25 04/03/25 23:59 23:59 23:59 23:59 Intake Total 2260.0 1374.4 1795.6 1160 Output Total 2350 Balance -90.0 1374.4 1795.6 1160 Meds/Results Medications: Active Medications Generic Name Dose Route Start Last Admin Trade Name Freq PRN Reason Stop Dose Admin Acetaminophen 650 mg 03/30/25 13:11 03/31/25 15:04 Acetaminophen 325 Mg Tablet PO 650 mg Q8H PRN Administration PAIN RATED 1-3 Albuterol 2 puff 03/30/25 13:11 Albuterol Sulfate (*Sp) Aerosol 1 Puff INHALATION QID PRN shortness of breath or wheezing Anastrozole 1 mg 03/31/25 09:00 04/03/25 08:42 Anastrozole (*Chemo) 1 Mg Tablet PO 1 mg DAILY [facility] Administration Apixaban 2.5 mg 03/30/25 13:20 04/03/25 08:41 Apixaban 2.5 Mg Tablet PO 2.5 mg Q12HR [facility] Administration Aspirin 81 mg 03/31/25 09:00 04/03/25 08:42 Aspirin 81 Mg Enteric Tablet PO 81 mg DAILY [facility] Administration Docusate Sodium 100 mg 03/31/25 09:00 04/03/25 08:42 Docusate Sodium 100 Mg Capsule PO 100 mg DAILY [facility] Administration Ergocalciferol 50,000 units 04/07/25 09:00 Ergocalciferol 50,000 Units Capsule PO Sa@0900 [facility] Ferrous Sulfate 325 mg 03/31/25 09:00 04/03/25 08:42 Ferrous Sulfate [address] PO 325 mg DAILY [facility] Administration Fluticasone/Umeclidinium/Vilanterol 1 puff 03/31/25 08:00 04/03/25 08:26 Fluticasone/Umeclidin/Vilanter 100-62.5-25 Mcg Ellipta INHALATION 1 puff DAILYRT [facility] Administration Gabapentin 200 mg 03/31/25 09:14 04/02/25 21:53 Gabapentin 100 Mg Capsule BY MOUTH 200 mg TID PRN Administration Muscle/Joint Pain Immune Globulin 20 gm/ Immune 320 mls @ 24 mls/hr 03/30/25 17:00 04/02/25 21:15 Globulin 10 gm/ Immune IVPB 04/04/25 06:19 Infused Globulin 2 gm/ N/A DAILY@1700 [facility] Infusion Lactobacillus Acidophilus 1 tablet 03/31/25 09:00 04/03/25 08:41 Acidophilus/Bulgaricus Chewable Tablet PO 1 tablet DAILY [facility] Administration Levothyroxine Sodium 100 mcg 03/31/25 06:30 04/03/25 06:33 Levothyroxine Sodium 100 Mcg Tablet BY MOUTH 100 mcg DAILY@0630 [facility] Administration Miscellaneous Information 1 each 03/31/25 00:01 04/01/25 05:27 Gemtesa Is Nonform; Can Pt Use From Home? XX 04/30/25 00:00 Not Given CLARIFY [facility] Multivitamins Therapeutic 1 tablet 03/31/25 09:00 04/03/25 08:43 Multivitamins Therapeutic Tab (*Bkc) PO 1 tablet DAILY [facility] Administration Non-Formulary Medication 75 mg 03/31/25 09:00 Vibegron [Gemtesa] PO 04/30/25 08:59 DAILY [facility] Pantoprazole Sodium 40 mg 03/30/25 21:00 04/03/25 08:42 Pantoprazole 40 Mg Tablet PO 40 mg Q12HR [facility] Administration Prednisone 40 mg 03/31/25 09:00 04/03/25 08:41 Prednisone 20 Mg Tablet PO 40 mg DAILY [facility] Administration Pyridostigmine [place] 60 mg 03/30/25 17:00 04/03/25 12:37 Pyridostigmine [place] 60 Mg Tablet PO 60 mg QID [facility] Administration Radiology Results: ITS Impressions Abdomen Ultrasound 04/02/25 20:08 IMPRESSION: Evaluation of the pancreas is limited by overlying bowel gas. Findings suggesting medical renal disease. Otherwise, unremarkable sonographic evaluation of the abdomen, as detailed above. Labs Labs: Laboratory Results - last 24 hr 04/03/25 05:32 WBC 3.9 L RBC 4.04 L Hgb 12.2 Hct 39.9 MCV 98.8 MCH 30.2 MCHC 30.6 L RDW 18.3 H Plt Count 171 MPV 10.9 H Sodium 138 Potassium 4.1 Chloride 105 Carbon Dioxide 30 Anion Gap 3 L BUN 20 H Creatinine 0.80 Estim Creat Clear Calc 51 Estimated GFR > 60 Glucose 87 Calcium 9.0 Magnesium 2.2 Total Bilirubin 0.4 AST 27 ALT 28 Alkaline Phosphatase 32 L Total Protein 9.0 H Albumin 3.8 Quality VTE Prophylaxis VTE prophylaxis: pharmacologic ordered (on apixaban)
[2025-04-03 16:00] VITALS: BP 130/61; PULSE 70; RESP 16; TEMP 36.6; O2SAT 95
[2025-04-03] MEDS: IMMUNE GLOBULIN IVPB (17:52)
[2025-04-03] MEDS: PREMIXIV IVPB (17:52)
[2025-04-03 20:56] VITALS: BP 131/65; PULSE 72; RESP 16; TEMP 36.4; O2SAT 99
[2025-04-04] VITALS: BP 133/60; PULSE 69; RESP 16; TEMP 36.4; O2SAT 100
[2025-04-04 05:12] VITALS: BP 139/59; PULSE 66; RESP 16; TEMP 36.7; O2SAT 100
[2025-04-04] MEDS: LEVOTHYROXINE SODIUM 100 MCG TABLET BY MOUTH (05:32)
[2025-04-04 06:18] LABS: Hematocrit 38.1 % (37.0-47.0); Hemoglobin 11.8 g/dL (12.0-15.0); Mean Corpuscular Hemoglobin 30.3 pg (26-34); Mean Corpuscular Volume 97.9 fl (80-100); Mean Platelet Volume 10.6 fl (7.4-10.4); Platelet Count Result 162 k/mm3 (150-375); Red Blood Count 3.89 M/mm3 (4.2-5.4); White Blood Count 4.1 K/mm3 (4.5-10.0)
[2025-04-04 06:28] LABS: Alanine Aminotransferase 25 U/L (6-35); Albumin Level 3.7 g/dL (3.5-5.1); Alkaline Phosphatase 29 U/L (38-126); Anion Gap 1 mmol/L (4-12); Aspartate Amino Transferase 30 U/L (14-36); Bilirubin,Total 0.4 mg/dL (0.2-1.3); Blood Urea Nitrogen 26 mg/dL (7-17); Calcium 9.2 mg/dL (8.4-10.2); Carbon Dioxide 31 mmol/L (22-30); Chloride 105 mmol/L (98-107); Estimated CRCL calculation 54 ml/min; Estimated Glomerular Filt Rate > 60; Glucose 91 mg/dL (65-110); Magnesium 2.1 mg/dL (1.6-2.3); Potassium 4.1 mmol/L (3.4-5.0); Sodium 137 mmol/L (137-145)
[2025-04-04] MEDS: FLUTICASONE/UMECLIDIN/VILANTER 100-62.5-25 MCG ELLIPTA 1 PUFF INHALATION (07:47)
[2025-04-04 07:51] VITALS: PULSE 89; RESP 18; O2SAT 95
[2025-04-04 08:00] VITALS: BP 140/55; PULSE 73; RESP 14; TEMP 36.4; O2SAT 100
[2025-04-04] MEDS: APIXABAN 2.5 MG TABLET PO (08:25)
[2025-04-04] MEDS: ACIDOPHILUS/BULGARICUS CHEWABLE TABLET 1 TABLET PO (08:25)
[2025-04-04] MEDS: PANTOPRAZOLE 40 MG TABLET PO (08:25)
[2025-04-04] MEDS: ASPIRIN 81 MG ENTERIC TABLET PO (08:25)
[2025-04-04] MEDS: pyRIDostigmine bromide 60 MG TABLET PO ×2 (08:25→12:40)
[2025-04-04] MEDS: FERROUS SULFATE 325 MG TABLET DR PO (08:25)
[2025-04-04] MEDS: ANASTROZOLE (*CHEMO) 1 MG TABLET PO (08:25)
[2025-04-04] MEDS: MULTIVITAMINS THERAPEUTIC TAB (*BKC) 1 TABLET PO (08:25)
[2025-04-04] MEDS: DOCUSATE SODIUM 100 MG CAPSULE PO (08:26)
[2025-04-04] MEDS: predniSONE 20 MG TABLET 40 MG PO (08:26)
--- NOTE | 2025-04-04 12:40 | PM.IMPN ---
Subjective Date/time seen: 04/04/25 12:40 Objective Data Vital Signs Vital Signs: Vital Signs - 24 hr 04/03/25 16:00 04/03/25 20:56 04/04/25 00:00 Temperature 36.6 C 36.4 C 36.4 C Pulse Rate 70 72 69 Respiratory Rate 16 16 16 Blood Pressure 130/61 131/65 133/60 Pulse Oximetry 95 99 100 Oxygen Delivery 04/04/25 05:12 04/04/25 07:51 04/04/25 07:51 Temperature 36.7 C Pulse Rate 66 89 Respiratory Rate 16 18 Blood Pressure 139/59 L Pulse Oximetry 100 95 Oxygen Delivery Room Air 04/04/25 08:00 04/04/25 08:25 Temperature 36.4 C Pulse Rate 73 Respiratory Rate 14 Blood Pressure 140/55 L Pulse Oximetry 100 Oxygen Delivery Room Air Intake/Output Intake/Output: Intake & Output 04/01/25 04/02/25 04/03/25 04/04/25 23:59 23:59 23:59 23:59 Intake Total 1374.4 1795.6 1580.0 870 Balance 1374.4 1795.6 1580.0 870 Meds/Results Medications: Active Medications Generic Name Dose Route Start Last Admin Trade Name Freq PRN Reason Stop Dose Admin Acetaminophen 650 mg 03/30/25 13:11 03/31/25 15:04 Acetaminophen 325 Mg Tablet PO 650 mg Q8H PRN Administration PAIN RATED 1-3 Albuterol 2 puff 03/30/25 13:11 Albuterol Sulfate (*Sp) Aerosol 1 Puff INHALATION QID PRN shortness of breath or wheezing Anastrozole 1 mg 03/31/25 09:00 04/04/25 08:25 Anastrozole (*Chemo) 1 Mg Tablet PO 1 mg DAILY [facility] Administration Apixaban 2.5 mg 03/30/25 13:20 04/04/25 08:25 Apixaban 2.5 Mg Tablet PO 2.5 mg Q12HR [facility] Administration Aspirin 81 mg 03/31/25 09:00 04/04/25 08:25 Aspirin 81 Mg Enteric Tablet PO 81 mg DAILY [facility] Administration Docusate Sodium 100 mg 03/31/25 09:00 04/04/25 08:26 Docusate Sodium 100 Mg Capsule PO 100 mg DAILY [facility] Administration Ergocalciferol 50,000 units 04/07/25 09:00 Ergocalciferol 50,000 Units Capsule PO Sa@0900 [facility] Ferrous Sulfate 325 mg 03/31/25 09:00 04/04/25 08:25 Ferrous Sulfate [address] PO 325 mg DAILY [facility] Administration Fluticasone/Umeclidinium/Vilanterol 1 puff 03/31/25 08:00 04/04/25 07:47 Fluticasone/Umeclidin/Vilanter 100-62.5-25 Mcg Ellipta INHALATION 1 puff DAILYRT [facility] Administration Gabapentin 200 mg 03/31/25 09:14 04/02/25 21:53 Gabapentin 100 Mg Capsule BY MOUTH 200 mg TID PRN Administration Muscle/Joint Pain Lactobacillus Acidophilus 1 tablet 03/31/25 09:00 04/04/25 08:25 Acidophilus/Bulgaricus Chewable Tablet PO 1 tablet DAILY [facility] Administration Levothyroxine Sodium 100 mcg 03/31/25 06:30 04/04/25 05:32 Levothyroxine Sodium 100 Mcg Tablet BY MOUTH 100 mcg DAILY@0630 [facility] Administration Miscellaneous Information 1 each 03/31/25 00:01 04/01/25 05:27 Gemtesa Is Nonform; Can Pt Use From Home? XX 04/30/25 00:00 Not Given [facility]ARIFY [facility] Multivitamins Therapeutic 1 tablet 03/31/25 09:00 04/04/25 08:25 Multivitamins Therapeutic Tab (*Bkc) PO 1 tablet DAILY [facility] Administration Non-Formulary Medication 75 mg 03/31/25 09:00 Vibegron [Gemtesa] PO 04/30/25 08:59 DAILY [facility] Pantoprazole Sodium 40 mg 03/30/25 21:00 04/04/25 08:25 Pantoprazole 40 Mg Tablet PO 40 mg Q12HR [facility] Administration Prednisone 40 mg 03/31/25 09:00 04/04/25 08:26 Prednisone 20 Mg Tablet PO 40 mg DAILY [facility] Administration Pyridostigmine [place] 60 mg 03/30/25 17:00 04/04/25 08:25 Pyridostigmine [place] 60 Mg Tablet PO 60 mg QID [facility] Administration Radiology Results: ITS Impressions Abdomen Ultrasound 04/02/25 20:08 IMPRESSION: Evaluation of the pancreas is limited by overlying bowel gas. Findings suggesting medical renal disease. Otherwise, unremarkable sonographic evaluation of the abdomen, as detailed above. Labs Labs: Laboratory Results - last 24 hr 04/04/25 05:22 WBC 4.1 L RBC 3.89 L Hgb 11.8 L Hct 38.1 MCV 97.9 MCH 30.3 MCHC 31.0 L RDW 18.0 H Plt Count 162 MPV 10.6 H Sodium 137 Potassium 4.1 Chloride 105 Carbon Dioxide 31 H Anion Gap 1 L BUN 26 H Creatinine 0.75 Estim Creat Clear Calc 54 Estimated GFR > 60 Glucose 91 Calcium 9.2 Magnesium 2.1 Total Bilirubin 0.4 AST 30 ALT 25 Alkaline Phosphatase 29 L Total Protein 9.0 H Albumin 3.7
--- NOTE | 2025-04-11 18:47 | PM.DS ---
DS: Admitting Diagnosis Discharge Date 04/04/25 Admitting Diagnosis Weakness. 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 Labs, imaging, EKG, and all reports were personally reviewed. Dr. Esquivel has been consulted and it is my understanding that he will be starting her on IVIG. Continue pyridostigmine and prednisone. Chronic issues without acute problems include history of DVT/PE on anticoagulation, breast cancer on anastrozole, asthma, hypothyroidism, and Shine esophagus. Her home medications will be reviewed and resumed as appropriate. Findings and treatment plan were discussed with the patient. Questions were solicited and answered to satisfaction. The patient's medical management will be taken over by the hospitalist team in a.m. patient with myasthenia gravis with generalized weakness and difficulty with ADL, patient has been on pyridostigmine and prednisone 40 mg daily since, patient was seen by neurologist and recommend patient will benefit from infusion of IVIG at 0.4 gram/kilos body weight daily for 4/5 days. later today patient will receive her last dose of IVIG, this has been started and will start patient on PT/OT this will help with her physical activities and patient will benefit going into acute rehab. on 04/02 patient c/o LUQ pain, denies any nausea, vomiting, or constipation, to further evaluate patient abdominal US which is essentially normal and pain has also improved, will monitor possibly discharge patient tomorrow. DS: Summary Hospital Course Hospital Course: patient with myasthenia gravis with generalized weakness and difficulty with ADL, patient has been on pyridostigmine and prednisone 40 mg daily since, patient was seen by neurologist and recommend patient will benefit from infusion of IVIG at 0.4 gram/kilos body weight daily for 4/5 days. later today patient will receive her last dose of IVIG, this has been started and will start patient on PT/OT this will help with her physical activities and patient will benefit going into acute rehab. on 04/02 patient c/o LUQ pain, denies any nausea, vomiting, or constipation, to further evaluate patient abdominal US which is essentially normal and pain has also improved, will monitor possibly discharge patient tomorrow. patient received her 5 doses of IVIG as ordered by her neurologist, patient stats feels better and patient is clinically stable, will discharge home today. Time Spent with Patient Time attestation: Total time spent providing and/or coordinating discharge services: Exam Narrative: Elderly frail Patient is comfortable, NAD HEENT: eyes are clear and none icteric LUNGS:CTA HEART: RR S1S2 ABD: BS+, Soft and nontender Lower extremities: no edema SKIN: nonjaundiced Neuro: grossly intact. Discharge Plan Discharge Attending physician on discharge: Ranjit Azul Consulting providers: Janessa Esquivel; Dea Astudillo; Danielle Mcgarry Discharging Clinician: Joseline Abebe Patient Disposition: Home Activity: as tolerated Diet: heart healthy Discharge Instructions: Patient to follow up with her neurologist and primary care provider as soon as possible, patient is instructed if any symptoms worsen to go to nearest ER. Patient Instructions: Shine Esophagus (DC), Weakness (DC) Patient Language: [place] Island[place] Stand Alone Forms: General Discharge Information Follow-up/Referrals: Rm Broderick MD [Primary Care Provider] - Janessa Esquivel MD [Physician] - Discharge Medications: Continued docusate sodium [Stool Softener] 100 mg Capsule 100 mg PO DAILY Daily Probiotic 2.5 billion cell Capsule 1 cap PO DAILY aspirin 81 mg tablet,delayed release (DR/EC) 81 mg PO DAILY anastrozole 1 mg tablet 1 mg PO DAILY prednisone 20 mg tablet 40 mg PO DAILY Qty: 120 2RF pyridostigmine bromide [Mestinon] 60 mg tablet 60 mg PO QID Qty: 120 6RF Rx Instructions: may start with half tablet 3 to 4 times a day increase up to 1 tablet 3 to 4 times a day Gemtesa 75 mg tablet 75 mg PO DAILY cholecalciferol (vitamin D3) [Vitamin D3] 125 mcg (5,000 unit) Tablet 125 mcg PO DAILY Eliquis 5 mg tablet 2.5 mg PO BID Rx Instructions: Take 0.5 tablet by mouth twice daily Trelegy Ellipta 100-62.5-25 mcg blister with device 1 inh inhalation DAILY Rx Instructions: Rinse mouth and spit after each use ferrous sulfate [Iron (ferrous sulfate)] 325 mg (65 mg iron) tablet 325 mg PO DAILY multivitamin [Daily Multi-Vitamin] Tablet 1 tablet PO DAILY docusate sodium 100 mg capsule 100 mg PO DAILY cholecalciferol (vitamin D3) 1,250 mcg (50,000 unit) tablet 50,000 unit PO WEEKLY Rx Instructions: saturdays gabapentin 100 mg capsule See Rx Instructions .ROUTE .COMPLEX PRN (Reason: pain) Rx Instructions: TAKE 2 CAPSULES BY MOUTH THREE TIMES DAILY PRN; acetaminophen [Tylenol 8 Hour] 650 mg tablet extended release 650 mg PO Q8H PRN (Reason: Pain) Patient Comments: Patient states she does not take Tylenol. albuterol sulfate [Ventolin HFA] 90 mcg/actuation HFA aerosol inhaler 2 puff inhalation QID PRN (Reason: shortness of breath or wheezing) Qty: 8.5 3RF levothyroxine 100 mcg tablet See Rx Instructions .ROUTE .COMPLEX Qty: 90 2RF Dose Instruction: TAKE 1 TABLET BY MOUTH EVERY DAY Rx Instructions: TAKE 1 TABLET BY MOUTH EVERY DAY omeprazole 40 mg capsule,delayed release(DR/EC) 40 mg PO DAILY Qty: 90 1RF Date of admission: 03/30/25 09:55 Primary Care Provider: Rm Broderick Admitting Provider: Ranjit Azul Attending physician on admission: Joseline Abebe Condition: Stable
== END 2025-04-04 13:50 | disposition home or self-care (01) | DRG 57 ==
LOC: ANHED 09:34 → ANH2MED 04-03 07:33 → ANHIMU 04-05 12:03
PROVIDERS: Physician Assistant; Admitting Provider General Practice; Emergency Provider Emergency Medicine; PCP Family Medicine; Visit Provider Family Medicine
DX: G70.01 Myasthenia gravis with (acute) exacerbation (principal); D50.9 Iron deficiency anemia, unspecified; I34.0 Nonrheumatic mitral (valve) insufficiency; K21.9 Gastro-esophageal reflux disease without esophagitis; K44.9 Diaphragmatic hernia without obstruction or gangrene; E78.2 Mixed hyperlipidemia; E89.0 Postprocedural hypothyroidism; N32.81 Overactive bladder; M19.90 Unspecified osteoarthritis, unspecified site; M47.812 Spondylosis without myelopathy or radiculopathy, cervical region; M47.816 Spondylosis without myelopathy or radiculopathy, lumbar region; Z96.643 Presence of artificial hip joint, bilateral; Z96.651 Presence of right artificial knee joint; Z79.01 Long term (current) use of anticoagulants; Z85.3 Personal history of malignant neoplasm of breast; Z86.718 Personal history of other venous thrombosis and embolism; Z86.711 Personal history of pulmonary embolism; Z86.73 Personal history of transient ischemic attack (TIA), and cerebral infarction without residual deficits; Z98.1 Arthrodesis status; Z91.81 History of falling
CPT/HCPCS: 36415; 76700; 80048; 80053; 81001; 83735; 84443; 85025; 85027; 85610; 85730; 87086; 87186; 94640; 97110; 97161; 97165; 97530; 97535; 99285; A9270; J1459; J7120; J7512

== ENCOUNTER 2025-05-09 09:24 | Outpatient (CLI) | payer MEDICARE, SELFPAY ==
--- OUTSIDE RECORDS SUMMARY | 2025-05-09 09:27 | XMS_ITS | Clinical Summary ---
Author Organization [facility] Address [address] [place] [address] Care Team Providers Care Agricultural Specialist Name Role Phone Iliana Gonzalez MD Primary Care Provider + Source Comments [facility],non-owned Affiliates and Associated Physician Practices is amultiple site organization consisting of ambulatory clinics and hospital sitesin [place], [place], [place] and [place]. This disclosure is being madepursuant to the Care Everywhere program and may not contain all information available regarding this patient. 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 FUND ACCOUNTANT Pulse - - Temperature 36.7 C (98 F) 10/30/2018 3:38 PM HEDGE FUND ACCOUNTANT Respiratory Rate 16 10/30/2018 3:38 PM HEDGE FUND ACCOUNTANT Oxygen Saturation 97% 10/30/2018 3:38 PM HEDGE FUND ACCOUNTANT Inhaled Oxygen Concentration - - Weight 72.6 kg (160 lb) 10/30/2018 3:38 PM HEDGE FUND ACCOUNTANT Height 171.5 cm (5' 7.5) 10/30/2018 3:38 PM HEDGE FUND ACCOUNTANT Body Mass Index 24.69 10/30/2018 3:38 PM 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 FUND ACCOUNTANT Plan of Treatment Health Maintenance Due Date [...] fective for All Dates) Name:Izaiah Neha Member ID:[id number] Relation to Subscriber:Self Name:KelleyrosalvaEla cheungne Subscriber ID:[id number] Payer ID:Not on file Group ID:Not on file Type:Medicare Address: [place] [phone] MEDICARE SUPPLEMENT PAYOR GENERIC * Guarantor: PHIL BLISS Account Type Relation to Patient Date of Phone Billing Address Personal/Family [address] [place] [phone] MEDICARE MEDICARE SUPPLEMENT PAYOR GENERIC * Guarantor: PHIL BLISS Account Type Relation to Patient Date of Phone Billing Address Personal/Family [address] [place] [address] MEDICARE MEDICARE SUPPLEMENT PAYOR GENERIC * Guarantor: PHIL BLISS Account Type Relation to Patient Date of Phone Billing Address Personal/Family [address] [place] [phone] MEDICARE Member Subscriber Plan / Payer (Ef fective for All Dates) Name:Neha Bliss Member ID:[id number] Relation to Subscriber:Self Name:Neha Bliss Subscriber ID:[id number] Payer ID:Not on file Group ID:Not on file Type:Medicare Address: [place] [phone] MEDICARE SUPPLEMENT PAYOR GENERIC Care Teams Agricultural Specialist Relationship Specialty Start Date End Date Iliana Gonzalez MD [address] [place] [address] PCP - General 02/25/21
--- OUTSIDE RECORDS SUMMARY | 2025-05-09 09:27 | XMS_ITS | Clinical Summary ---
Author Organization [facility] Address [address] [place] [address] Care Team Providers Care Fighting Vehicle Infantryman Name Role Phone Maggy Collins Primary Care Provider [phone] Allergies Active Allergy Reactions Criticality Noted Date Comments Hydromorphone Anaphylaxis,Shortnes s of Breath,Vomiting High 12/27/2024 Meperidine Anaphylaxis High 12/27/2024 Morphine Chest pressure,Itchi ng,Shortness of Breath,Rash High 10/30/2018 Medications apixaban (ELIQUIS) 2.5 MG tablet Take 1 tablet (2.5 mg total) by mouth 2 (two) times daily. 4 Active aspirin 81 MG chewable tablet Chew 1 tablet (81 mg total) by mouth daily. Active acetaminophen (TYLENOL) 500 MG tablet Take 2 tablets (1,000 mg total) by mouth every 4 (four) hours as needed. Active albuterol sulfate HFA 108 (90 Base) MCG/ACT inhaler Inhale 2 puffs into the lungs every 4 (four) hours as needed for Shortness of breath. Active anastrozole (ARIMIDEX) 1 MG tablet Take 1 tablet by mouth daily. 4 Active omeprazole (PRILOSEC) 20 MG capsule Take 1 capsule (20 mg total) by mouth daily. Active Fluticasone-Ume clidin-Vilant (TRELEGY ELLIPTA) 100-62.5-25 MCG/ACT AEROSOL POWDER, BREATH ACTIVATED Inhale 1 puff into the lungs daily. Active gabapentin (NEURONTIN) 100 MG capsule Take 2 capsules (200 mg total) by mouth 4 (four) times daily. Active levothyroxine (SYNTHROID) 100 MCG tablet Take 1 tablet (100 mcg total) by mouth daily. Active predniSONE (DELTASONE) 20 MG tablet Take 2 tablets (40 mg total) by mouth daily. 5 Active pyridostigmine (MESTINON) 60 MG tablet Take 1 tablet (60 mg total) by mouth 3 (three) times daily. 4 Active vibegron (GEMTESA) 75 MG tablet Take 1 tablet (75 mg total) by mouth daily. Active Lactobacillus (ACIDOPHILUS) Cap Take 1 capsule by mouth daily. Active L-METHYLFOLATE CALCIUM OR Take 1 tablet by mouth daily. Active ferrous sulfate, 65 mg elemental, 325 (65 FE) MG tablet Take 1 tablet (325 mg total) by mouth 2 (two) times daily. Active Docusate Sodium (DSS) 100 MG Cap Take 100 mg by mouth daily. Active vitamin B-12 (CYANOCOBALAMIN ) 500 MCG tablet Take 1 tablet (500 mcg total) by mouth daily. Active Vitamin D3 125 mcg Tab Take 1 tablet (125 mcg total) by mouth daily. Active Encounters Date Type Department Care Team Description 03/28/2025 9:10 AM CDT Anesthesia Event [place] [place] [address] Ana Paula Espinoza MD Jackson, Samantha Rae, FNP 03/28/2025 9:09 AM CDT - 03/28/2025 10:03 AM CDT [place] [place] [address] Tomás Polanco MD CYSTOSCOPY AND BULKING AGENT 03/28/2025 7:15 AM CDT - 03/28/2025 11:05 AM CDT Hospital Encounter [facility] [place] [address] Tomás Polanco MD Discharge Disposition: Home or Self Care (Routine Discharge) 03/28/2025 Travel 03/25/2025 Prep for Procedure [facility] Pre-Admission Testing [facility] [place] [address] Tomás Polanco MD 03/24/[address] [facility] [place] [address] Tomás Polanco MD 03/21/2025 Travel from Last 3 Months Social History Tobacco Use Types Packs/Day Years Used Date Smoking Tobacco: Never Smokeless Tobacco: Never Tobacco Cessation:Counseling Given: Not Answered Alcohol Use Standard Drinks/Week Comments Not Currently 0 (1 standard drink = 0.6 oz pur e alcohol) Comments No Sex and Gender Information Value Date Recorded Sex Assigned at Female 03/28/2025 7:04 AM CDT Legal Sex Female 10:42 AM CDT Gender Identity Not on file Sexual Orientation Not on file Last Filed Vital Signs Vital Sign Reading Time Taken Comments Blood Pressure 143/73 03/28/2025 10:51 AM CDT Pulse 72 03/28/2025 10:51 AM CDT Temperature 36.5 C (97.7 F) 03/28/2025 10:51 AM CDT Respiratory Rate 16 03/28/2025 10:5 1 AM CDT Oxygen Saturation 98% 03/28/2025 10: 51 AM CDT Inhaled Oxygen Concentration - - Weight 80.2 kg (176 lb 12.9 oz) 03/28/2025 7:30 AM CDT Height 167.6 cm (5' 6) 03/28/2025 7:30 AM CDT Body Mass Index 28.54 03/28/2025 7:30 AM CDT Plan of Treatment Health Maintenance Due Date Last Done Comments DTaP, Tdap and Td Vaccines ( 1 - Tdap) 1960 Pneumococcal Vaccine: 50+ Ye ars (1 of 1 - PCV) 1991 Zoster Vaccines (1 of 2) 1991 Annual Medicare Wellness Visit 2006 Dexa Scan (General) 2006 RSV Immunization or 60+ Years (1 - 1-dose 75+ series) 2016 COVID-19 Vaccine (2023-2 5 season) 2024 Meningococcal B Vaccine Aged Out No l onger eligible based on patient's age to complete this topic Meningococcal Vaccine Aged Out No choco nathan eligible based on patient's age to complete this topic RSV Immunizations Under 20 Months Aged Out No longer eligible based on patient's age to complete this topic Medical Devices Implanted Type Area Mis Manager Device Identifier Shelf Expiration Date Model / Serial / Lot Implant Urological Bulkamid Bulk Urethral Sterile Latex Free - [id number] Implanted:Qty: 1 on 03/28/2025 by Tomás Polanco MD at 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 MEDICARE Care Teams Fighting Vehicle Infantryman Relationship Specialty Start Date End Date Maggy Collins PA [address] [facility] [place] [id number] PCP - General PHYSICIAN MANAGING PARTNER 03/28/25
--- OUTSIDE RECORDS SUMMARY | 2025-05-09 09:27 | XMS_ITS | Encounter Summary ---
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 Gender Identity Not on file Sexual Orientation Not on file documented as of this encounter Plan of Treatment Upcoming Encounters Date Type Department Care Team (Late st Contact Info) Description 06/21/2025 11:45 AM CDT Office Visit [facility] Oncology and Hematology - [place] [address] [place] [address] [address] [place] [id number] Carlos Desouza MD [address] [facility] [address] [place] [address] documented as of this encounter Visit Diagnoses Not on filedocumented in this encounter Care Teams Well Flow Operator Relationship Specialty Start Date End Date Rm Broderick MD [address] [facility] [address] [place] [id number] PCP - General Family Practice 02/15/25 documented as of this encounter
--- OUTSIDE RECORDS SUMMARY | 2025-05-09 09:27 | XMS_ITS | Clinical Summary ---
Author Organization [facility] Address [address] [place] [address] Care Team Providers Care Plumber Pipe Fitting Name Role Phone Rm Broderick MD Primary [...] a day as needed for pain Active [id number]- Lmfolate-algal 27 mg iron-1.13 mg-581.92 mg capsule Take 1 tablet by mouth daily Active albuterol HFA (PROVENTIL HFA,VENTOLIN HFA,PROAIR HFA) 90 mcg/actuation inhaler Inhale 2 puffs every 6 (six) hours as needed Active levothyroxine (SYNTHROID) 100 mcg tablet Take 1 tablet (100 mcg total) by mouth city routeman before breakfast Active fluticasone-umec lidin-vilanter (Trelegy Ellipta) [...] Encounters Date Type Department Care Team Description 04/26/2025 Telephone [facility] Orthopedics and Sports Medicine [address] [place] [address] [place] [phone] Amber Gaspar NP 04/26/2025 Telephone [facility] Orthopedics and Sports Medicine [address] [place] [phone] Amber Gaspar NP 04/25/2025 9:16 AM CDT - 04/25/2025 11:59 PM CDT Hospital Encounter [facility] MRI [address] [place] [phone] Chronic neck pain; Foraminal stenosis of cervical region, right C3-C4, bilateral C5-C6; Arthropathy of cervical facet joint, bilateral; DDD (degenerative disc disease), cervical, mild C4-C5, severe C5-C6; Anterolisthesis of cervical spine, mild C3-C5; History of fusion of cervical spine C6-C7 (1993); Muscle weakness of extremities, upper and lower Discharge Disposition: Discharge to home or self care 04/25/2025 9:16 AM CDT - 04/25/2025 11:59 PM CDT Hospital Encounter [facility] MRI [address] [place] [id number] Chronic bilateral thoracic back pain; DDD (degenerative disc disease), thoracic, multilevel; History of thoracic spinal fusion, T10-T12 (1992); Muscle weakness of extremities, upper and lower Discharge Disposition: Discharge to home or self care 03/25/2025 Telephone [facility] Medical [facility] [address] [facility] [address] [place] [phone] Wilmar Kraus MD 03/15/2025 11:25 AM CDT - 03/15/2025 11:59 PM CDT Hospital Encounter [facility] Diag Imaging [address] [place] [phone] Thoracic spine pain; Neck pain Discharge Disposition: Discharge to home or self care 03/15/2025 10:30 AM CDT Office Visit [facility] Medicine [address] [place] [phone] Amber Gaspar NP Chronic neck pain; Foraminal [...] lower 02/27/2025 9:30 AM CDT Office Visit [facility] Medical [facility] Orthopedics and Sports Medicine [facility] [address] [place] [phone] Anyi Dick PA Other closed fracture of distal end of left fibula with routine healing, subsequent encounter (Primary Dx) 02/27/2025 9:24 AM CDT - 02/27/2025 11:59 PM CDT Hospital Encounter [facility] Diag Imaging [facility] [place] [address] Other closed fracture of distal end of [...] on file Legal Sex Female 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 Gender Identity Not on file Sexual Orientation Not on file Obstetrics History Last Filed Vital Signs Vital Sign Reading Time Taken Comments Blood Pressure 136/55 12/27/2024 1:00 PM LIVING SUPERVISOR Pulse 73 12/27/2024 1:00 PM LIVING SUPERVISOR Temperature 36.8 C (98.2 F) 12/27/2024 10:28 AM LIVING SUPERVISOR Respiratory Rate 19 12/27/2024 1:00 PM LIVING SUPERVISOR Oxygen Saturation 99% 12/27/2024 1:00 PM LIVING SUPERVISOR Inhaled Oxygen Concentration - - Weight 78 kg (171 lb 15.3 oz) 04/25/2025 10:13 A M CDT Height 170.2 cm (5' 7) 04/25/2025 10:13 AM CDT Body Mass Index 26.93 04/25/2025 10:13 AM CDT Plan of Treatment Health Maintenance [...] Chronic Care Management On track(2020 1:08 PM LIVING SUPERVISOR) Joi Navarrete, RN Note: Problem: Chronic Pain Goals: 1. Minimize further functional decline 2. Maximize quality of life 3. Control pain Strategies: - Activity/exercise program recommendation - Conservative stepwise pain medicine strategy with multi-disciplinary approach - Recommend healthy lifestyle strategies and compensatory methods as needed Medical Devices Implanted Type Area Patrol Man Device Identifier Shelf Expiration Date Model / Serial / Lot Rt Knee Hip B/L Hips Hip Procedures Procedure Name Priority Date/Time Associated Diagnosis Comments MRI CERVICAL SPINE W WO CONTRAST Schedule Routine, Read Routine (OP Routine) 04/25/2025 11:00 AM CDT Chronic neck pain Foraminal stenosis of cervical region, right C3-C4, bilateral C5-C6 Arthropathy of cervical facet joint, bilateral DDD (degenerative disc disease), cervical, mild C4-C5, severe C5-C6 Anterolisthesis of cervical spine, mild C3-C5 History of fusion of cervical spine C6-C7 (1993) Muscle weakness of extremities, upper and lower MRI THORACIC SPINE W WO CONTRAST Schedule Routine, Read Routine (OP Routine) 04/25/2025 10:58 AM CDT Chronic bilateral thoracic back pain DDD (degenerative disc disease), thoracic, multilevel History of thoracic spinal fusion, T10-T12 (1992) Muscle weakness of extremities, upper and lower XR SPINE CERVICAL W FLEXION AND EXTENSION 6 OR MORE VIEWS Schedule Routine, Read Routine (OP Routine) 03/15/2025 11:35 AM CDT Neck pain XR SPINE THORACIC 3 VIEWS Schedule Routine, Read Routine (OP Routine) 03/15/2025 11:35 AM CDT Thoracic spine pain [place] INJECTION SINGLE/SENIOR ORACLE APPLICATIONS DEVELOPER TRIGGER POINT 1/2 MUSCLES Routine 03/15/2025 10:30 AM CDT Myofascial pain dysfunction syndrome XR ANKLE LEFT 3 OR MORE VIEWS Schedule Routine, Read Routine (OP Routine) 02/27/2025 9:36 AM CDT Other closed fracture of distal end of left fibula, initial encounter from Last 3 Months Results * MRI Cervical Spine W WO Contrast (04/25/2025 11:00 AM CDT) Anatomical Region Laterality Modality Spine N/A Magnetic Resonan ce 04/25/2025 3:02 PM CDT Narrative 04/25/2025 3:23 PM CDT EXAM DESCRIPTION: MRI THORACIC SPINE W WO CONTRAST; MRI CERVICAL SPINE W WO CONTRAST REASON FOR STUDY: Mid-back pain, neuro deficit, History of lumbar fusion 1992, bilateral lower extremity weakness Hx of neck and mid back pain; S/P fall November 24, 2024; legs gave away and fell; intermittent neck and mid back pain x 10 years; pain worsened after the fall ; Neck pain, acute, prior cervical surgery Hx of neck and mid back pain; S/P fall November 24, 2024; legs gave away and fell; intermittent neck and mid back pain x 10 years; pain worsened after the fall TECHNIQUE: Sagittal and Axial imaging includes T1, T2, STIR and gradient echo sequences. T1 post gadolinium sequences. CONTRAST TYPE/DOSE: 15mL of GADOTERATE MEGLUMINE 0.5 MMOL/ML INTRAVENOUS SOLUTION (SO) injected via intravenous COMPARISON: Cervical spine radiographs dated 03/15/2025. CT chest dated 09/27/2024 FINDINGS: CERVICAL SPINE: ALIGNMENT: There is trace anterolisthesis C3 over C4, C4 over C5. Mild retrolisthesis C5 over C6. Mild anterolisthesis C7 over T1. VERTEBRAE: Vertebral body height maintained. Type 2 Modic endplate degenerative changes at C5-C6. no abnormal enhancement. HARDWARE: DISCS: Severe disc space height loss at C5-C6. Otherwise mild disc space height loss in the cervical spine. Disc desiccation. INTERBODY FUSION AT C6-C7. CORD: Normal in size and signal intensity. No abnormal enhancement. SOFT TISSUES: No significant abnormality. INDIVIDUAL LEVELS: C2-C3: Small central disc protrusion.. There is moderate left and mild right facet arthropathy. Ligamentum flavum infolding. There is no uncovertebral joint disease. There is mild left neuroforaminal stenosis. There is dzpy-sc-ikzxdqyj spinal canal stenosis. C3-C4: Posterior disc osteophyte complex. There is moderate bilateral facet arthropathy. Ligamentum flavum infolding. There is mild bilateral uncovertebral joint disease. There is mild right neuroforaminal stenosis. There is mild spinal canal stenosis. C4-C5: Posterior disc osteophyte complex. There is severe right and moderate left facet arthropathy. There is mild bilateral uncovertebral joint disease. There is no neuroforaminal stenosis. There is no spinal canal stenosis. C5-C6: Posterior disc osteophyte complex. There is moderate bilateral facet arthropathy. There is severe bilateral uncovertebral joint disease. There is severe bilateral neuroforaminal stenosis. There is moderate spinal canal stenosis. C6-C7: Interbody fusion. There is moderate bilateral facet arthropathy. There is mild bilateral uncovertebral joint disease. There is no neuroforaminal stenosis. There is no spinal canal stenosis. C7-T1: Mild disc bulge. There is severe right and moderate left facet arthropathy. There is no uncovertebral joint disease. There is no neuroforaminal stenosis. There is no spinal canal stenosis. THORACIC SPINE: ALIGNMENT: Trace anterolisthesis of T1 over T2. otherwise normal AP alignment. VERTEBRAE: Vertebral body height maintained. Normal appearing marrow. Multilevel facet arthropathy. Abnormal enhancement. T2 hemangioma. HARDWARE: Right sided lateral fixation plate at T10-T12. The instrumentation is better assessed on CT dated 09/27/2024. CORD: Normal in size and signal intensity. Abnormal enhancement. INDIVIDUAL DISC LEVELS: Mild anterolisthesis at T1-T2 with uncovering of the disc and superimposed small disc bulge and ligamentum flavum infolding. There is mild spinal canal stenosis at T1-T2. Otherwise there is no significant spinal canal stenosis in the thoracic spine. No high-grade neural foraminal stenosis is identified. There is mild multilevel neural foraminal stenosis in the thoracic spine. SOFT TISSUES: No significant abnormality. IMPRESSION: 1. Multilevel degenerative changes of the cervical spine, as described in detail above, with up to moderate spinal canal stenosis and severe bilateral neural foraminal stenosis at C5-C6. 2. Mild degenerative changes of the thoracic spine. No high-grade thoracic spinal canal or neural foraminal stenosis. 3. No abnormal enhancement within the cervical and thoracic spine. THIS IS AN ELECTRONICALLY VERIFIED FINAL REPORT 04/25/2025 3:23 PM - Electronically signed by Robles Card M.D. MM T: Report ID: [id number] Reading Location: [place] [address] Procedure Note Robles Card MD - 04/25/2025 EXAM DESCRIPTION: MRI THORACIC SPINE W WO CONTRAST; MRI CERVICAL SPINE WWO CONTRAST REASON FOR STUDY: Mid-back pain, neuro deficit, History of lumbar fusion 1992, bilateral lower extremity weakness Hx of neck and mid back pain; S/P fall November 24, 2024; legs gave awayand fell; intermittent neck and mid back pain x 10 years; pain worsened afterthe fall ; Neck pain, acute, prior cervical surgery Hx of neck and mid back pain; S/P fall November 24, 2024; legs gave awayand fell; intermittent neck and mid back pain x 10 years; pain worsened afterthe fall TECHNIQUE: Sagittal and Axial imaging includes T1, T2, STIR and gradientecho sequences. T1 post gadolinium sequences. CONTRAST TYPE/DOSE: 15mL of GADOTERATE MEGLUMINE 0.5 MMOL/ML INTRAVENOUS SOLUTION (SO) injected via intravenous COMPARISON: Cervical spine radiographs dated 03/15/2025. CT chest dated 09/27/2024 FINDINGS: CERVICAL SPINE: ALIGNMENT: There is trace anterolisthesis C3 over C4, C4 over C5. Mild retrolisthesis C5 over C6. Mild anterolisthesis C7 over T1. VERTEBRAE: Vertebral body height maintained. Type 2 Modic endplate degenerative changes at C5-C6. no abnormal enhancement. HARDWARE: DISCS: Severe disc space height loss at C5-C6. Otherwise mild disc space height loss in the cervical spine. Disc desiccation. INTERBODY FUSION AT C6-C7. CORD: Normal in size and signal intensity. No abnormal enhancement. SOFT TISSUES: No significant abnormality. INDIVIDUAL LEVELS: C2-C3: Small central disc protrusion.. There is moderate left and mild right facet arthropathy. Ligamentum flavum infolding. There is no uncovertebral joint disease. There is mild left neuroforaminal stenosis. There is fmuv-gl-pucllfbw spinal canal stenosis. C3-C4: Posterior disc osteophyte complex. There is moderate bilateral facet arthropathy. Ligamentum flavum infolding. There is mild bilateral uncovertebral joint disease. There is mild right neuroforaminalstenosis. There is mild spinal canal stenosis. C4-C5: Posterior disc osteophyte complex. There is severe right and moderate left facet arthropathy. There is mild bilateral uncovertebral joint disease. There is no neuroforaminal stenosis. There is no spinal canal stenosis. C5-C6: Posterior disc osteophyte complex. There is moderate bilateral facet arthropathy. There is severe bilateral uncovertebral jointdisease. There is severe bilateral neuroforaminal stenosis. There is moderate spinal canal stenosis. C6-C7: Interbody fusion. There is moderate bilateral facetarthropathy. There is mild bilateral uncovertebral joint disease. There is no neuroforaminal stenosis. There is no spinal canal stenosis. C7-T1: Mild disc bulge. There is severe right and moderate left facet arthropathy. There is no uncovertebral joint disease. There is no neuroforaminal stenosis. There is no spinal canal stenosis. THORACIC SPINE: ALIGNMENT: Trace anterolisthesis of T1 over T2. otherwise normal AP alignment. VERTEBRAE: Vertebral body height maintained. Normal appearing marrow. Multilevel facet arthropathy. Abnormal enhancement. T2 hemangioma. HARDWARE: Right sided lateral fixation plate at T10-T12. Theinstrumentation is better assessed on CT dated 09/27/2024. CORD: Normal in size and signal intensity. Abnormal enhancement. INDIVIDUAL DISC LEVELS: Mild anterolisthesis at T1-T2 with uncovering ofthe disc and superimposed small disc bulge and ligamentum flavum infolding.There is mild spinal canal stenosis at T1-T2. Otherwise there is no significant spinal canal stenosis in the thoracic spine. No high-grade neuralforaminal stenosis is identified. There is mild multilevel neural foraminalstenosis in the thoracic spine. SOFT TISSUES: No significant abnormality. IMPRESSION: 1. Multilevel degenerative changes of the cervical spine, as describedin detail above, with up to moderate spinal canal stenosis and severebilateral neural foraminal stenosis at C5-C6. 2. Mild degenerative changes of the thoracic spine. No high-gradethoracic spinal canal or neural foraminal stenosis. 3. No abnormal enhancement within the cervical and thoracic spine. THIS IS AN ELECTRONICALLY VERIFIED FINAL REPORT 04/25/2025 3:23 PM - Electronically signed by Robles Card M.D. MM T: Report ID: [id number] Reading Location: [id number] Amber KelliGarland Gaspar NP IMG MRI PROCEDURES Final Re sult * MRI Thoracic Spine W WO Contrast (04/25/2025 10:58 AM CDT) Anatomical Region Laterality Modality Spine N/A Magnetic Resonan ce 04/25/2025 3:02 PM CDT Narrative 04/25/2025 3:23 PM CDT EXAM DESCRIPTION: MRI THORACIC SPINE W WO CONTRAST; MRI CERVICAL SPINE W WO CONTRAST REASON FOR STUDY: Mid-back pain, neuro deficit, History of lumbar fusion 1992, bilateral lower extremity weakness Hx of neck and mid back pain; S/P fall November 24, 2024; legs gave away and fell; intermittent neck and mid back pain x 10 years; pain worsened after the fall ; Neck pain, acute, prior cervical surgery Hx of neck and mid back pain; S/P fall November 24, 2024; legs gave away and fell; intermittent neck and mid back pain x 10 years; pain worsened after the fall TECHNIQUE: Sagittal and Axial imaging includes T1, T2, STIR and gradient echo sequences. T1 post gadolinium sequences. CONTRAST TYPE/DOSE: 15mL of GADOTERATE MEGLUMINE 0.5 MMOL/ML INTRAVENOUS SOLUTION (SO) injected via intravenous COMPARISON: Cervical spine radiographs dated 03/15/2025. CT chest dated 09/27/2024 FINDINGS: CERVICAL SPINE: ALIGNMENT: There is trace anterolisthesis C3 over C4, C4 over C5. Mild retrolisthesis C5 over C6. Mild anterolisthesis C7 over T1. VERTEBRAE: Vertebral body height maintained. Type 2 Modic endplate degenerative changes at C5-C6. no abnormal enhancement. HARDWARE: DISCS: Severe disc space height loss at C5-C6. Otherwise mild disc space height loss in the cervical spine. Disc desiccation. INTERBODY FUSION AT C6-C7. CORD: Normal in size and signal intensity. No abnormal enhancement. SOFT TISSUES: No significant abnormality. INDIVIDUAL LEVELS: C2-C3: Small central disc protrusion.. There is moderate left and mild right facet arthropathy. Ligamentum flavum infolding. There is no uncovertebral joint disease. There is mild left neuroforaminal stenosis. There is afoz-vl-ufmavytu spinal canal stenosis. C3-C4: Posterior disc osteophyte complex. There is moderate bilateral facet arthropathy. Ligamentum flavum infolding. There is mild bilateral uncovertebral joint disease. There is mild right neuroforaminal stenosis. There is mild spinal canal stenosis. C4-C5: Posterior disc osteophyte complex. There is severe right and moderate left facet arthropathy. There is mild bilateral uncovertebral joint disease. There is no neuroforaminal stenosis. There is no spinal canal stenosis. C5-C6: Posterior disc osteophyte complex. There is moderate bilateral facet arthropathy. There is severe bilateral uncovertebral joint disease. There is severe bilateral neuroforaminal stenosis. There is moderate spinal canal stenosis. C6-C7: Interbody fusion. There is moderate bilateral facet arthropathy. There is mild bilateral uncovertebral joint disease. There is no neuroforaminal stenosis. There is no spinal canal stenosis. C7-T1: Mild disc bulge. There is severe right and moderate left facet arthropathy. There is no uncovertebral joint disease. There is no neuroforaminal stenosis. There is no spinal canal stenosis. THORACIC SPINE: ALIGNMENT: Trace anterolisthesis of T1 over T2. otherwise normal AP alignment. VERTEBRAE: Vertebral body height maintained. Normal appearing marrow. Multilevel facet arthropathy. Abnormal enhancement. T2 hemangioma. HARDWARE: Right sided lateral fixation plate at T10-T12. The instrumentation is better assessed on CT dated 09/27/2024. CORD: Normal in size and signal intensity. Abnormal enhancement. INDIVIDUAL DISC LEVELS: Mild anterolisthesis at T1-T2 with uncovering of the disc and superimposed small disc bulge and ligamentum flavum infolding. There is mild spinal canal stenosis at T1-T2. Otherwise there is no significant spinal canal stenosis in the thoracic spine. No high-grade neural foraminal stenosis is identified. There is mild multilevel neural foraminal stenosis in the thoracic spine. SOFT TISSUES: No significant abnormality. IMPRESSION: 1. Multilevel degenerative changes of the cervical spine, as described in detail above, with up to moderate spinal canal stenosis and severe bilateral neural foraminal stenosis at C5-C6. 2. Mild degenerative changes of the thoracic spine. No high-grade thoracic spinal canal or neural foraminal stenosis. 3. No abnormal enhancement within the cervical and thoracic spine. THIS IS AN ELECTRONICALLY VERIFIED FINAL REPORT 04/25/2025 3:23 PM - Electronically signed by Robles Card M.D. MM T: Report ID: [id number] Reading Location: [place] [address] Procedure Note Robles Card MD - 04/25/2025 EXAM DESCRIPTION: MRI THORACIC SPINE W WO CONTRAST; MRI CERVICAL SPINE WWO CONTRAST REASON FOR STUDY: Mid-back pain, neuro deficit, History of lumbar fusion 1992, bilateral lower extremity weakness Hx of neck and mid back pain; S/P fall November 24, 2024; legs gave awayand fell; intermittent neck and mid back pain x 10 years; pain worsened afterthe fall ; Neck pain, acute, prior cervical surgery Hx of neck and mid back pain; S/P fall November 24, 2024; legs gave awayand fell; intermittent neck and mid back pain x 10 years; pain worsened afterthe fall TECHNIQUE: Sagittal and Axial imaging includes T1, T2, STIR and gradientecho sequences. T1 post gadolinium sequences. CONTRAST TYPE/DOSE: 15mL of GADOTERATE MEGLUMINE 0.5 MMOL/ML INTRAVENOUS SOLUTION (SO) injected via intravenous COMPARISON: Cervical spine radiographs dated 03/15/2025. CT chest dated 09/27/2024 FINDINGS: CERVICAL SPINE: ALIGNMENT: There is trace anterolisthesis C3 over C4, C4 over C5. Mild retrolisthesis C5 over C6. Mild anterolisthesis C7 over T1. VERTEBRAE: Vertebral body height maintained. Type 2 Modic endplate degenerative changes at C5-C6. no abnormal enhancement. HARDWARE: DISCS: Severe disc space height loss at C5-C6. Otherwise mild disc space height loss in the cervical spine. Disc desiccation. INTERBODY FUSION AT C6-C7. CORD: Normal in size and signal intensity. No abnormal enhancement. SOFT TISSUES: No significant abnormality. INDIVIDUAL LEVELS: C2-C3: Small central disc protrusion.. There is moderate left and mild right facet arthropathy. Ligamentum flavum infolding. There is no uncovertebral joint disease. There is mild left neuroforaminal stenosis. There is rzcg-nq-qepwkcwo spinal canal stenosis. C3-C4: Posterior disc osteophyte complex. There is moderate bilateral facet arthropathy. Ligamentum flavum infolding. There is mild bilateral uncovertebral joint disease. There is mild right neuroforaminalstenosis. There is mild spinal canal stenosis. C4-C5: Posterior disc osteophyte complex. There is severe right and moderate left facet arthropathy. There is mild bilateral uncovertebral joint disease. There is no neuroforaminal stenosis. There is no spinal canal stenosis. C5-C6: Posterior disc osteophyte complex. There is moderate bilateral facet arthropathy. There is severe bilateral uncovertebral jointdisease. There is severe bilateral neuroforaminal stenosis. There is moderate spinal canal stenosis. C6-C7: Interbody fusion. There is moderate bilateral facetarthropathy. There is mild bilateral uncovertebral joint disease. There is no neuroforaminal stenosis. There is no spinal canal stenosis. C7-T1: Mild disc bulge. There is severe right and moderate left facet arthropathy. There is no uncovertebral joint disease. There is no neuroforaminal stenosis. There is no spinal canal stenosis. THORACIC SPINE: ALIGNMENT: Trace anterolisthesis of T1 over T2. otherwise normal AP alignment. VERTEBRAE: Vertebral body height maintained. Normal appearing marrow. Multilevel facet arthropathy. Abnormal enhancement. T2 hemangioma. HARDWARE: Right sided lateral fixation plate at T10-T12. Theinstrumentation is better assessed on CT dated 09/27/2024. CORD: Normal in size and signal intensity. Abnormal enhancement. INDIVIDUAL DISC LEVELS: Mild anterolisthesis at T1-T2 with uncovering ofthe disc and superimposed small disc bulge and ligamentum flavum infolding.There is mild spinal canal stenosis at T1-T2. Otherwise there is no significant spinal canal stenosis in the thoracic spine. No high-grade neuralforaminal stenosis is identified. There is mild multilevel neural foraminalstenosis in the thoracic spine. SOFT TISSUES: No significant abnormality. IMPRESSION: 1. Multilevel degenerative changes of the cervical spine, as describedin detail above, with up to moderate spinal canal stenosis and severebilateral neural foraminal stenosis at C5-C6. 2. Mild degenerative changes of the thoracic spine. No high-gradethoracic spinal canal or neural foraminal stenosis. 3. No abnormal enhancement within the cervical and thoracic spine. THIS IS AN ELECTRONICALLY VERIFIED FINAL REPORT 04/25/2025 3:23 PM - Electronically signed by Robles Card M.D. MM T: Report ID: [id number] Reading Location: [id number] Amber PereiraGarland Chasity AIR SURVEILLANCE OPERATOR IMG MRI PROCEDURES Final Re sult * XR Spine Thoracic 3 View (03/15/2025 [...] signed by Martin CORBIN T: Report ID: [id number] Reading Location: [id number] Procedure Note Martin Gibson MD - 03/16/2025 [...] osteoarthritis is present. Right-sided C3-C4 and bilateral C5-[id number] impingement. Thoracic spine: Mild dextrocurvature of the [...] by Martin Gibson M.D. T: Report ID: [id number] Reading Location: [place] [address] Amber Gaspar NP IMG XR PROCEDURES Final [...] by Martin Gibson M.D. T: Report ID: [id number] Reading Location: [place] [address] Procedure Note Martin Gibson MD - 03/16/2025 [...] osteoarthritis is present. Right-sided C3-C4 and bilateral C5-X2yrizqhiwr impingement. Thoracic spine: Mild dextrocurvature of the [...] by Martin Gibson M.D. T: Report ID: [id number] Reading Location: [place] [address] Amber Gaspar AIR SURVEILLANCE OPERATOR IMG XR PROCEDURES Final Res ult * AK INJECTION SINGLE/SENIOR ORACLE APPLICATIONS DEVELOPER TRIGGER POINT 1/2 MUSCLES (03/15/2025 10:30 AM CDT) Narrative Amber Gaspar NP - 03/15/2025 10:30 AM CDT Amber Gaspar NP 04/29/2025 8:30 PM Trigger Point Injection Performed by: Amber Gaspar [...] well with no immediate complications Amber Gaspar AIR SURVEILLANCE OPERATOR IN CLINIC/BEDSIDE ORDERABLE S Final Result * [...] by Tomás Quiros M.D. T: Report ID: [id number] Reading Location: [id number] Procedure Note Tomás Quiros MD - 03/01/2025 [...] by Tomás Quiros M.D. T: Report ID: [id number] Reading Location: [id number] Anyi CAMPA IMG XR PROCEDURES Final Re sult from Last 3 Months Insurance MEDICARE COMMERCIAL GENERIC MEDICARE COMMERCIAL GENERIC MEDICARE Care Teams Plumber Pipe Fitting Relationship Specialty Start Date End Date Rm Broderick MD [address] [facility] [address] [place] [address] PCP - General Family Medicine 12/18/24
--- OUTSIDE RECORDS SUMMARY | 2025-05-09 09:28 | XMS_ITS | Clinical Summary ---
Author Organization [facility] Address [address] [place] [address] Care Team Providers Care Beehive Kiln Supervisor Name Role Phone Rm Broderick MD Primary Care Provider [phone] Allergies Active Allergy Reactions Criticality Noted Date [...] tablet Take 100 mcg by mouth. Active [id number]-rezq -Lmfolate-algal 27 mg iron-1.13 mg-581.92 mg Capsule [...] 60 mg by mouth 3 times daily. Active anastrozole (ARIMIDEX) 1 mg tablet Take 1 Tablet (1 mg) by mouth daily. 90 Tablet 3 Active apixaban (Eliquis) 2.5 mg tablet Take 1 Tablet (2.5 mg) by mouth 2 times daily. 60 Tablet 3 Active Active Problems No known active problems Encounters Date Type Department Care Team Description 04/24/2025 External Device Data [facility] ABSTRACTION Provider, Abstract 04/23/2025 External Device Data [facility] ABSTRACTION Provider, Abstract 04/02/2025 External Device Data [facility] ABSTRACTION Provider, Abstract 03/27/2025 External Device Data [facility] ABSTRACTION Provider, Abstract 03/26/2025 External Device Data [facility] ABSTRACTION Provider, Abstract 03/21/[address] [facility] Oncology and Hematology [facility] [address] [place] [address] Carlos Desouza MD Surgical Clearance 03/04/2025 [facility] [address] [place] [address] Jenni Menezes MD 02/24/2025 [facility] Oncology and Hematology Abiodun Rodriguez [address] [place] [address] Samanta Gaxiola MD 02/22/[address] [facility] Oncology and Hematology [facility] [address] [place] [address] Carlos Desouza MD 02/15/2025 11:30 AM CDT Office Visit [facility] Oncology and Hematology [facility] [address] [place] [address] Carlos Desouza MD Malignant neoplasm of left breast in female, estrogen receptor positive, unspecified site of breast (CMS/HCC) (Primary Dx); Chronic anemia; Visit for screening mammogram; Iron deficiency anemia, unspecified iron deficiency anemia type 02/12/[address] [facility] Oncology and Hematology [facility] [address] [place] [address] Carlos Desouza MD from Last [...] on file Legal Sex Female 3:16 AM INSPECTOR MATERIALS AND PROCESSES Gender Identity Not on file Sexual Orientation [...] 167.6 cm (5' 6) 10/10/2023 11:24 AM INSPECTOR MATERIALS AND PROCESSES Body Mass Index 27.92 10/10/2023 11:24 AM INSPECTOR MATERIALS AND PROCESSES Plan of Treatment Upcoming Encounters Date Type Department Care Team (Late st Contact Info) Description 06/21/2025 11:45 AM CDT Office Visit [facility] Oncology and Hematology [facility] [address] [place] [address] Carlos Desouza MD [address] [facility] [address] [place] [address] Health Maintenance Due Date Last [...] MEDICARE PART A AND B Care Teams Beehive Kiln Supervisor Relationship Specialty Start Date End Date Rm Broderick MD [address] [facility] [address] [facility] [address] [place] [address] PCP - General Family Practice 02/15/25
--- OUTSIDE RECORDS SUMMARY | 2025-05-09 09:28 | XMS_ITS | Encounter Summary ---
Author Organization [facility] Address [address] [place] [address] Phone Care Team Providers Care Special Client Bus Driver Name Role Phone Iliana Gonzalez MD Primary Care Provider Rm Broderick MD Primary Care Provider Encounter Details Date Type Department Care Team (Late st Contact Info) Description 01/03/[address] [facility] ProviderSharif MD [address] [place] [address] Social History Tobacco Use Types Packs/Day Years Used Date Smoking Tobacco: Never Assessed Alcohol Use Standard Drinks/Week Comments No 0 (1 standard drink = 0.6 oz pur e alcohol) Comments Unknown Sex and Gender Information Value Date Recorded Sex Assigned at Not on file Legal Sex Female 1:48 AM RHINOLOGIST Gender Identity Not on file Sexual Orientation Not on file documented as of this encounter Plan of Treatment Not on file documented as of this encounter Procedures Procedure Name Priority Date/Time Associated Diagnosis Comments CYTOLOGY 01/03/2018 12:00 AM RHINOLOGIST documented in this encounter Results * CYTOLOGY (01/03/2018 12:00 AM RHINOLOGIST) Narrative 01/03/2018 12:00 AM RHINOLOGIST Ordered by an unspecified provider. Historical Provider LAB CYTOLOGY ORDERABLES F inal Result documented in this encounter Visit Diagnoses Not on filedocumented in this encounter Additional Health Concerns Infection Onset Date Last Indicated Resolved Time COVID: Suspected 09/27/2024 09/27/2024 09/27/2024 6:23 PM RHINOLOGIST documented as of this encounter Care Teams Special Client Bus Driver Relationship Specialty Start Date End Date Iliana Gonzalez MD [address] [place] [address] PCP - General 03/30/17 12/17/24 Rm Broderick MD [address] [place] [address] PCP - General Family Medicine 12/18/24 documented as of this encounter
--- OUTSIDE RECORDS SUMMARY | 2025-05-09 09:28 | XMS_ITS | Encounter Summary ---
Author Organization [facility] Address [address] [place] [address] Care Team Providers Care Lab Head Name Role Phone Iliana Gonzalez MD Primary Care Provider Rm Broderick MD Primary Care Provider Reason for Visit * Reason Onset Date Comments Pre-Surgical Call 01/20/2022 Encounter Details Date Type Department Care Team (Late st Contact Info) Description 01/20/2022 Telephone [facility] [address] [facility] [address] [place] [address] Gurpreet Camp MD [address] [facility] [address] [place] [address] Pre-Surgical Call Social History Tobacco Use Types [...] on file Legal Sex Female 1:48 AM LIGHT ADJUSTER Gender Identity Not on file Sexual Orientation Not on file documented as of this encounter Plan of Treatment Not on file documented as of this encounter Goals Goal Patient Goal Type Associated Problems Recent Progress Patient-Stated? Author CCM Chronic Pain Care Plan Chronic Care Management On track(2020 1:08 PM LIGHT ADJUSTER) Joi Navarrete, RN Note: Problem: Chronic Pain [...] COVID: Suspected 09/27/2024 09/27/2024 09/27/2024 6:23 PM LIGHT ADJUSTER documented as of this encounter Care Teams Lab Head Relationship Specialty Start Date End Date Iliana Gonzalez MD [address] [place] [address] PCP - General 03/30/17 12/17/24 Rm Broderick MD [address] [place] [address] PCP - General Family Medicine 12/18/24 documented as of this encounter
--- OUTSIDE RECORDS SUMMARY | 2025-05-09 09:28 | XMS_ITS | Referral Summary ---
Author Organization [facility] Address [address] [place] [address] Care Team Providers Care Multiple Pressure Riveter Operator Name Role Phone Rm Broderick MD Primary Care Provider Encounters Date Type Department Care Team Description 04/26/2025 Telephone [facility] Orthopedics and Sports Medicine [address] [place] [address] Amber Gaspar NP 04/26/2025 Telephone [facility] Orthopedics and Sports Medicine [address] [place] [address] Amber Gaspar NP 04/25/2025 9:16 AM CDT - 04/25/2025 11:59 PM CDT Hospital Encounter [facility] MRI [address] [place] [address] Chronic neck pain; Foraminal stenosis of cervical [...] 11:59 PM CDT Hospital Encounter [facility] MRI [address] [place] [address] Chronic bilateral thoracic back pain; DDD (degenerative disc disease), thoracic, multilevel; History of thoracic spinal fusion, T10-T12 (1992); Muscle weakness of extremities, upper and lower Discharge Disposition: Discharge to home or self care 03/25/2025 Telephone [facility] Cardiology [address] [place] [address] Wilmar Kraus MD 03/15/2025 11:25 AM CDT - 03/15/2025 11:59 PM CDT Hospital Encounter [facility] Diag Imaging [address] [place] [address] Thoracic spine pain; Neck pain Discharge Disposition: Discharge to home or self care 03/15/2025 10:30 AM CDT Office Visit [facility] Orthopedics and Sports Medicine [address] [place] [address] [address] [place] [address] Amber Gaspar NP Chronic neck pain; Foraminal [...] 11:59 PM CDT Hospital Encounter [facility] Di[facility] Imaging [address] [place] [address] Other closed fracture of distal end of left fibula, initial encounter Discharge Disposition: Discharge to home or self care 02/27/2025 9:30 AM CDT Office Visit [facility] Orthopedics and Sports Medicine [address] [place] [address] [address] [place] [address] Anyi Dick PA Other closed fracture of distal end of left fibula with routine healing, subsequent encounter (Primary Dx) from Last 3 Months Allergies [...] a day as needed for pain Active yvxdymzu42-avcw- Lmfolate-algal 27 mg iron-1.13 mg-581.92 mg capsule Take 1 tablet by mouth daily Active albuterol HFA (PROVENTIL HFA,VENTOLIN HFA,PROAIR HFA) 90 mcg/actuation inhaler Inhale 2 puffs every 6 (six) hours as needed Active levothyroxine (SYNTHROID) 100 mcg tablet Take 1 tablet (100 mcg total) by mouth maxillofacial surgeon before breakfast Active fluticasone-umec lidin-vilanter (Trelegy Ellipta) [...] file Legal Sex Female 1:48 AM FUNERAL ARRANGEMENT DIRECTOR Gender Identity Not on file Sexual Orientation Not on file Last Filed Vital Signs Vital Sign Reading Time Taken Comments Blood Pressure 136/55 12/27/2024 1:00 PM FUNERAL ARRANGEMENT DIRECTOR Pulse 73 12/27/2024 1:00 PM FUNERAL ARRANGEMENT DIRECTOR Temperature 36.8 C (98.2 F) 12/27/2024 10:28 AM FUNERAL ARRANGEMENT DIRECTOR Respiratory Rate 19 12/27/2024 1:00 PM FUNERAL ARRANGEMENT DIRECTOR Oxygen Saturation 99% 12/27/2024 1:00 PM FUNERAL ARRANGEMENT DIRECTOR Inhaled Oxygen Concentration - - Weight 78 kg (171 lb 15.3 oz) 04/25/2025 10:13 A M CDT Height 170.2 cm (5' 7) 04/25/2025 10:13 AM CDT Body Mass Index 26.93 04/25/2025 10:13 AM CDT Plan of Treatment Not on file Goals Goal Patient Goal Type Associated Problems Recent Progress Patient-Stated? Author CCM Chronic Pain Care Plan Chronic Care Management On track(2020 1:08 PM FUNERAL ARRANGEMENT DIRECTOR) Joi Navarrete, RN Note: Problem: Chronic Pain Goals: 1. Minimize further functional decline 2. Maximize quality of life 3. Control pain Strategies: - Activity/exercise program recommendation - Conservative stepwise pain medicine strategy with multi-disciplinary approach - Recommend healthy lifestyle strategies and compensatory methods as needed Medical Devices Implanted Type Area Salesperson Furniture Device Identifier Shelf Expiration Date Model / [...] 03/15/2025 11:35 AM CDT Thoracic spine pain AL INJECTION SINGLE/ANTHROPOLOGY AND ARCHEOLOGY INSTRUCTOR TRIGGER POINT 1/2 MUSCLES Routine 03/15/2025 10:30 [...] is mild left neuroforaminal stenosis. There is tvsr-au-bamilyos spinal canal stenosis. C3-C4: Posterior disc osteophyte [...] - Electronically signed by Robles Card M.D. T: Report ID: [id number] Reading Location: [place] [address] Procedure Note Robles Card MD - 04/25/2025 [...] is mild left neuroforaminal stenosis. There is cfgz-ow-rupdrczu spinal canal stenosis. C3-C4: Posterior disc osteophyte [...] Robles Card M.D. MM T: Report ID: [id number] Reading Location: [place] [address] Amber Gaspar WEB PRODUCER IMG MRI PROCEDURES Final Re sult * [...] is mild left neuroforaminal stenosis. There is ovyt-lg-hmtevkrk spinal canal stenosis. C3-C4: Posterior disc osteophyte [...] Robles Card M.D. MM T: Report ID: [id number] Reading Location: [place] [address] Procedure Note Robles Card MD - 04/25/2025 [...] is mild left neuroforaminal stenosis. There is mpjg-um-kstdikbu spinal canal stenosis. C3-C4: Posterior disc osteophyte [...] Robles Card M.D. MM T: Report ID: [id number] Reading Location: [place] [address] Amber Gaspar WEB PRODUCER IMG MRI PROCEDURES Final Re sult * [...] by Martin Gibson M.D. T: Report ID: [id number] Reading Location: [id number] Procedure Note Martin Gibson MD - 03/16/2025 [...] osteoarthritis is present. Right-sided C3-C4 and bilateral C5-A1arlororge impingement. Thoracic spine: Mild dextrocurvature of the [...] signed by Martin CORBIN T: Report ID: [id number] Reading Location: [place] [address] Amber Gaspar NP IMG XR PROCEDURES Final [...] signed by Martin CORBIN T: Report ID: [id number] Reading Location: [id number] Procedure Note Martin Gibson MD - 03/16/2025 [...] osteoarthritis is present. Right-sided C3-C4 and bilateral C5-U5wgajdslmi impingement. Thoracic spine: Mild dextrocurvature of the [...] by Martin Gibson M.D. T: Report ID: [id number] Reading Location: [place] [address] Amber Gaspar NP IMG XR PROCEDURES Final Res ult * AL INJECTION SINGLE/ANTHROPOLOGY AND ARCHEOLOGY INSTRUCTOR TRIGGER POINT 1/2 MUSCLES (03/15/2025 10:30 AM [...] with no immediate complications us Amber Gaspar WEB PRODUCER IN CLINIC/BEDSIDE ORDERABLE S Final Result * [...] by Tomás Quiros M.D. T: Report ID: [id number] Reading Location: [id number] Procedure Note Tomás Quiros MD - 03/01/2025 [...] by Tomás Quiros M.D. T: Report ID: [id number] Reading Location: [place] [address] Anyi CAMPA IMG XR PROCEDURES Final Re sult from Last 3 Months Insurance MEDICARE COMMERCIAL GENERIC MEDICARE COMMERCIAL GENERIC MEDICARE Care Teams Multiple Pressure Riveter Operator Relationship Specialty Start Date End Date Rm Broderick MD [address] [facility] [address] [place] [address] PCP - General Family Medicine 12/18/24
--- NOTE | 2025-05-09 11:30 | NEURO_ITS ---
Clinical note: The patient is 84-year-old with history of myasthenia gravis complaining of numbness in her right hand and fingers. She has history of surgery on cervical spine in the past. A brief neurological examination did not show any focal muscle wasting or fasciculations in the right upper limb. No history of diabetes mellitus. Please refer to detailed nerve conduction study and EMG findings given below. Summary of findings: 1. Right median motor distal latency amplitude and conduction velocity normal limits. 2. Right ulnar motor distal latency amplitude and conduction velocity within normal limits. There is no focal slowing across the elbow. 3. Right median and ulnar motor distal latencies also performed while recording over 2nd lumbrical and 2nd interossei however distal latencies were within normal limits. There is no evidence for slowing across the carpal tunnel. 4. Right median palmar distal latency was normal however was mildly prolonged compared to the radial and ulnar palmar sensory distal latencies. Right radial sensory distal latency amplitude conduction velocity within normal limits. Left and right median and ulnar digital sensory distal latencies and amplitude conduction velocity essentially within normal limits for a number 5. EMG examination performed for various muscles in the distribution of C5-T1 examined. Motor unit amplitude and and recruitment pattern were within normal limits. No denervation changes were seen. However mild decreased recruitment was noted in the right abductor pollicis brevis. Impression: EMG nerve can study of the right upper limb shows evidence of minimal right carpal tunnel syndrome. No denervation changes but mild decreased recruitment was noted in the right abductor pollicis brevis. Remainder of the findings are considered within normal limits Janessa Esquivel MD, FAAN, FAANEM Neurology/ Electrodiagnostic Medicine Nerve Conduction Studies Motor Nerve Results ? Latency Amplitude F-Lat Segment Distance CV Comment Site (ms) (mV) (ms) (cm) (m/s) Right Med/Ulnar(Lum-INT) Motor ? Median (Lumb I) Wrist 3.1 4.3 ? Ulnar (Dorsal Interossei IV) Wrist 3.0 4.8 Right Median (APB) Motor Wrist 4.0 5.1 Elbow 7.8 4.4 Elbow-Wrist 210 55 Right Ulnar (ADM) Motor Wrist 3.1 8.6 Bel Elbow 6.6 8.4 Bel Elbow-Wrist 200 57 Abv Elbow 7.7 8.3 Abv Elbow-Bel Elbow 60 55 Sensory Nerve Results ? Latency (Peak) Amplitude (P-P) Segment Distance CV Comment Site (ms) (?V) (cm) (m/s) Right Median DigIII Sensory Wrist-Dig III 3.3 29 Wrist-Dig III 135 41 Right Median-Ulnar Palmar Sensory ? Median Palm-Wrist 2.2 35 Palm-Wrist 80 36 ? Ulnar Palm-Wrist 1.63 42 Palm-Wrist 80 49 Right Radial Sensory Forearm-Wrist 1.83 33 Forearm-Wrist 100 55 Right Ulnar Sensory Wrist-Dig V 3.4 32 Wrist-Dig V 130 38 Electromyography ?Side Muscle Nerve Ins Act Fibs Psw Amp Dur Recrt Comment Right Deltoid Axillary Nml Nml Nml Nml Nml Nml Right Triceps Radial Nml Nml Nml Nml Nml Nml Right ExtCarUln Radial (Post Int) Nml Nml Nml Nml Nml Nml Right FlexPolLong Median (Ant Int) Nml Nml Nml Nml Nml Nml Right 1stDorInt Ulnar Nml Nml Nml Nml Nml Nml Right Abd Poll Brev Median Nml Nml Nml Incr >12ms +1 Right FlexDigProf Ulnar Nml Nml Nml Nml Nml Nml
== END 2025-05-09 09:25 | disposition home or self-care (01) ==
LOC: ANHNEURO 09:26
PROVIDERS: PCP Family Medicine; Visit Provider Psychiatry & Neurology Neurology
DX: E11.9 Type 2 diabetes mellitus without complications (principal); G62.9 Polyneuropathy, unspecified
CPT/HCPCS: 95886; 95910

== ENCOUNTER 2025-05-25 07:42 | Emergency (ER) | payer MEDICARE, SELFPAY ==
--- NOTE | ~2025-05-25 | XR_ITS ---
XR chest 2V DATE: 05/25/2025 09:00 INDICATION: Asthma TECHNIQUE: 2 views COMPARISON: 09/12/2023 2 view chest FINDINGS: Cardiomegaly. Aortic calcification and mild tortuosity. No pulmonary infiltrate or consolidation. Mild blunting of the left costophrenic angle, which may be due to small pleural effusion or pleural t hickening. No pulmonary vascular congestion. No pneumothorax. Status post lower thoracic spinal surgical fusion at T10-T12. Severe degenerative disc disease and mi ld retrolisthesis at L1-2. Osteoarthritis of the glenohumeral joints. Osteopenia. Status post cholecystectomy. IMPRESSION: Cardiomegaly, aortic atherosclerosis No active pulmonary disease Reviewed, dictated and finalized at location A.
--- NOTE | ~2025-05-25 | CT_ITS ---
CT scan of the right upper extremity CLINICAL HISTORY: Cat bite, lymphangitis TECHNIQUE: Following intravenous administration of 100 cc of Omnipaque 350 contrast material, axial i maging of the right upper extremity was performed. Sagittal and coronal reformatted images were const ructed. Dose reduction technique was used on this scan by utilizing automated exposure control and it erative reconstruction technique. The dose-length product (DLP) was 456.01 mGy-cm. Findings: No acute fracture or dislocation seen. There is mild degenerative change of the first CMC j oint. There are moderate to advanced degenerative changes of the DIP joints of the fingers. Remaining joint spaces appear intact. There is irregular, peripherally enhancing fluid collections of the dorsal aspect of the wrist measur ing in conglomerate up to approximately 2.5 x 1.1 cm in transverse dimensions, and approximately 3.0 cm in craniocaudal extent. These are relatively in the vicinity of the second extensor compartment te ndons, and could reflect abscesses versus infectious tenosynovitis. There is mild diffuse subcutaneou s soft tissue edema of the hand and wrist. No other focal fluid collection identified. Visualized mus dot bellies appear intact. IMPRESSION: Irregular abscess versus infectious tenosynovitis measuring 2.5 x 1.1 x 3.0 cm in extent, at the leve l of the wrist, involving the second extensor compartment tendon region. Extensive subcutaneous soft tissue edema could reflect superimposed cellulitis. Degenerative changes, as detailed above. No evidence for osteomyelitis. Reviewed, dictated and finalized at [facility]. IMPRESSION: Irregular abscess versus infectious tenosynovitis measuring 2.5 x 1.1 x 3.0 cm in extent, at the level of the wrist, involving the second extensor compartment tendon region. Extensive subcutaneous soft tissue edema could reflect superimposed cellulitis. Degenerative changes, as detailed above. No evidence for osteomyelitis.
--- OUTSIDE RECORDS SUMMARY | 2025-05-25 07:44 | XMS_ITS | Clinical Summary ---
Author Organization [facility] Address [address] [facility] [address] Care Team Providers Care Inorganic Chemistry Professor Name Role Phone Iliana Gonzalez MD Primary Care Provider + Source Comments [facility],non-owned Affiliates and Associated Physician Practices is amultiple site organization consisting of ambulatory clinics and hospital sitesin [place], [place], [place] and [place]. This disclosure is being madepursuant to the Care Everywhere program and may not contain all information available regarding this patient. Last updated 18.[facility] Allergies Active Allergy Reactions Criticality Noted Date [...] on file Legal Sex Female 5:25 AM GRANITE BLOCK PAVER Gender Identity Not on file Sexual Orientation Not on file Last Filed Vital Signs Vital Sign Reading Time Taken Comments Blood Pressure 120/78 10/30/2018 3:38 PM GRANITE BLOCK PAVER Pulse - - Temperature 36.7 C (98 F) 10/30/2018 3:38 PM GRANITE BLOCK PAVER Respiratory Rate 16 10/30/2018 3:38 PM GRANITE BLOCK PAVER Oxygen Saturation 97% 10/30/2018 3:38 PM GRANITE BLOCK PAVER Inhaled Oxygen Concentration - - Weight 72.6 kg (160 lb) 10/30/2018 3:38 PM GRANITE BLOCK PAVER Height 171.5 cm (5' 7.5) 10/30/2018 3:38 PM GRANITE BLOCK PAVER Body Mass Index 24.69 10/30/2018 3:38 PM GRANITE BLOCK PAVER Plan of Treatment Health Maintenance Due Date [...] season) 2024 DEPRESSION SCREENING 11/07/2024 INFLUENZA VACCINE (#1) 2025 HEPATITIS B VACCINE Aged Out No [...] fective for All Dates) Name:Izaiah Neha Member ID:[id number] Relation to Subscriber:Self Name:KelleyrosalvaEla cheungne Subscriber ID:[id number] Payer ID:Not on file Group ID:Not on file Type:Medicare Address: [place] [phone] MEDICARE SUPPLEMENT PAYOR GENERIC * Guarantor: PHIL BLISS Account Type Relation to Patient Date of Phone Billing Address Personal/Family [address] [place] [phone] MEDICARE MEDICARE SUPPLEMENT PAYOR GENERIC * Guarantor: PHIL BLISS Account Type Relation to Patient Date of Phone Billing Address Personal/Family [address] [place] [address] MEDICARE MEDICARE SUPPLEMENT PAYOR GENERIC * Guarantor: PHIL BLISS Account Type Relation to Patient Date of Phone Billing Address Personal/Family [address] [place] [phone] MEDICARE Member Subscriber Plan / Payer (Ef fective for All Dates) Name:Neha Bliss Member ID:[id number] Relation to Subscriber:Self Name:eNha Bliss Subscriber ID:[id number] Payer ID:Not on file Group ID:Not on file Type:Medicare Address: [place] [phone] MEDICARE SUPPLEMENT PAYOR GENERIC Care Teams Inorganic Chemistry Professor Relationship Specialty Start Date End Date Iliana Gonzalez MD [address] [place] [address] PCP - General 02/25/21
--- OUTSIDE RECORDS SUMMARY | 2025-05-25 07:44 | XMS_ITS | Clinical Summary ---
Author Organization [facility] Michele Marcial Address [address] [place] [address] Care Team Providers Care Army Helicopter Pilot Name Role Phone Rm Broderick MD Primary Care Provider [phone] Allergies Active Allergy Reactions Criticality Noted Date [...] tablet Take 100 mcg by mouth. Active xsxpboys43-axil -Lmfolate-algal 27 mg iron-1.13 mg-581.92 mg Capsule [...] Encounters Date Type Department Care Team Description 05/22/2025 External Device Data STL ABSTRACTION Provider, Abstract 05/22/2025 External Device Data STL ABSTRACTION Provider, Abstract 04/24/2025 External Device Data STL ABSTRACTION Provider, Abstract 04/23/2025 External Device Data STL ABSTRACTION Provider, Abstract 04/02/2025 External Device Data STL ABSTRACTION Provider, Abstract 03/27/2025 External Device Data STL ABSTRACTION Provider, Abstract 03/26/2025 External Device Data STL ABSTRACTION Provider, Abstract 03/21/2025 Telephone [facility] Oncology and Hematology [facility] [address] [place] [address] Carlos Desouza MD Surgical Clearance 03/04/2025 [facility] Oncology and Hematology [facility] [address] [place] [address] Jenni Menezes MD 02/24/2025 [facility] Oncology and Hematology Abiodun Rodriguez [address] [facility] [address] [place] [phone] Samanta Gaxiola MD from Last 3 Months Family History [...] on file Legal Sex Female 3:16 AM CREW LEADER/CONTROL ROOM OPERATOR Gender Identity Not on file Sexual [...] 167.6 cm (5' 6) 10/10/2023 11:24 AM CREW LEADER/CONTROL ROOM OPERATOR Body Mass Index 27.92 10/10/2023 11:24 AM CREW LEADER/CONTROL ROOM OPERATOR Plan of Treatment Upcoming Encounters Date Type Department Care Team (Late st Contact Info) Description 06/21/2025 11:45 AM CDT Office Visit [facility] Oncology and Hematology - Willie [address] [facility] [address] [place] [address] Carlos Desouza MD [address] [facility] [address] [place] [address] Health Maintenance Due Date Last Done Comments DTAP/TDAP/TD VACCINES (1 - Tdap) 1960 PNEUMOCOCCAL VACCINE 50+ YEA RS (1 of 2 - PCV) 1960 ZOSTER VACCINE (1 of 2) 1991 RSV VACCINE (60+ or ) (1 - 1-dose 75+ series) 2016 INFLUENZA VACCINE (#1) 2025 OSTEOPOROSIS SCREENING 11/23/2028 11/23/2023 COLORECTAL SCREENING Discontinued 12/21/2019, 12/21/19 20 Colorectal Cancer Screening Discontinued FIT-DNA Q 3 years Discontinued FIT/FOBT Q 1 year Discontinued Flex Sig/CT Colonography Q 5 years Discontinued Insurance GENERIC PAYOR MEDICARE PART A AND B Care Teams Army Helicopter Pilot Relationship Specialty Start Date End Date Rm Broderick MD [address] [facility] [address] [place] [address] PCP - General Family Practice 02/15/25
--- OUTSIDE RECORDS SUMMARY | 2025-05-25 07:44 | XMS_ITS | Referral Summary ---
Author Organization [facility] Address [address] [place] [address] Care Team Providers Care Legal File Clerk Name Role Phone Rm Broderick MD Primary Care Provider Encounters Date Type Department Care Team Description 04/26/2025 Telephone [facility] Medical [facility] Orthopedics and Sports Medicine [address] [place] [phone] Amber Gaspar NP 04/26/2025 Telephone [facility] Orthopedics and Sports Medicine [address] [place] [phone] Amber Gaspar NP 04/25/2025 9:16 AM CDT - 04/25/2025 11:59 PM CDT Hospital Encounter [facility] MRI [address] [place] [address] Chronic neck pain; Foraminal stenosis of cervical [...] - 04/25/2025 11:59 PM CDT Hospital Encounter [facility] MRI [address] [place] [address] Chronic bilateral thoracic back pain; DDD (degenerative disc disease), thoracic, multilevel; History of thoracic spinal fusion, T10-T12 (1992); Muscle weakness of extremities, upper and lower Discharge Disposition: Discharge to home or self care 03/25/2025 Telephone [facility] Medical Group Cardiology [address] [place] [phone] Wilmar Kraus MD 03/15/2025 11:25 AM CDT - 03/15/2025 11:59 PM CDT Hospital Encounter [facility] Diag Imaging [address] [place] [address] Thoracic spine pain; Neck pain Discharge Disposition: Discharge to home or self care 03/15/2025 10:30 AM CDT Office Visit [facility] Orthopedics and Sports Medicine [address] [place] [address] [address] [place] [address] Amber Gaspar NP Chronic neck pain; Foraminal [...] - 02/27/2025 11:59 PM CDT Hospital Encounter [facility] Diag Imaging [address] [place] [address] Other closed fracture of distal end of left fibula, initial encounter Discharge Disposition: Discharge to home or self care 02/27/2025 9:30 AM CDT Office Visit [facility] Medical Group Orthopedics and Sports Medicine [address] [place] [address] [address] [place] [phone] Anyi Dick PA Other closed fracture of [...] a day as needed for pain Active eutfdobj67-vqke- Lmfolate-algal 27 mg iron-1.13 mg-581.92 mg capsule Take 1 tablet by mouth daily Active albuterol HFA (PROVENTIL HFA,VENTOLIN HFA,PROAIR HFA) 90 mcg/actuation inhaler Inhale 2 puffs every 6 (six) hours as needed Active levothyroxine (SYNTHROID) 100 mcg tablet Take 1 tablet (100 mcg total) by mouth 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 Active fluticasone-umec lidin-vilanter (Trelegy Ellipta) [...] on file Legal Sex Female 1:48 AM BASEBALL WINDER Gender Identity Not on file Sexual Orientation Not on file Last Filed Vital Signs Vital Sign Reading Time Taken Comments Blood Pressure 136/55 12/27/2024 1:00 PM BASEBALL WINDER Pulse 73 12/27/2024 1:00 PM BASEBALL WINDER Temperature 36.8 C (98.2 F) 12/27/2024 10:28 AM BASEBALL WINDER Respiratory Rate 19 12/27/2024 1:00 PM BASEBALL WINDER Oxygen Saturation 99% 12/27/2024 1:00 PM BASEBALL WINDER Inhaled Oxygen Concentration - - Weight 78 kg (171 lb 15.3 oz) 04/25/2025 10:13 A M CDT Height 170.2 cm (5' 7) 04/25/2025 10:13 AM CDT Body Mass Index 26.93 04/25/2025 10:13 AM CDT Plan of Treatment Not on file Goals Goal Patient Goal Type Associated Problems Recent Progress Patient-Stated? Author CCM Chronic Pain Care Plan Chronic Care Management On track(2020 1:08 PM BASEBALL WINDER) Joi Navarrete, RN Note: Problem: Chronic Pain Goals: 1. Minimize further functional decline 2. Maximize quality of life 3. Control pain Strategies: - Activity/exercise program recommendation - Conservative stepwise pain medicine strategy with multi-disciplinary approach - Recommend healthy lifestyle strategies and compensatory methods as needed Medical Devices Implanted Type Area Lead Embedded Software Engineer Device Identifier Shelf Expiration Date Model / [...] 03/15/2025 11:35 AM CDT Thoracic spine pain IN INJECTION SINGLE/DERMATOLOGY NURSE PRACTITIONER TRIGGER POINT 1/2 MUSCLES Routine 03/15/2025 10:30 [...] is mild left neuroforaminal stenosis. There is hozy-bx-egyjjiny spinal canal stenosis. C3-C4: Posterior disc osteophyte [...] by Robles Card M.D. T: Report ID: [id number] Reading Location: [place] [address] Procedure Note Robles Card MD - 04/25/2025 [...] is mild left neuroforaminal stenosis. There is pzew-uh-tewfgzur spinal canal stenosis. C3-C4: Posterior disc osteophyte [...] Robles Card M.D. MM T: Report ID: [id number] Reading Location: [place] [address] Amber Gaspar COUNTER TACKER IMG MRI PROCEDURES Final Re sult * [...] is mild left neuroforaminal stenosis. There is papc-sn-wyiurcly spinal canal stenosis. C3-C4: Posterior disc osteophyte [...] Robles Card M.D. MM T: Report ID: [id number] Reading Location: [place] [address] Procedure Note Robles Card MD - 04/25/2025 [...] is mild left neuroforaminal stenosis. There is sqbt-bl-hvnaklmw spinal canal stenosis. C3-C4: Posterior disc osteophyte [...] Robles Card M.D. MM T: Report ID: [id number] Reading Location: [place] [address] Amber Gaspar COUNTER TACKER IMG MRI PROCEDURES Final Re sult * [...] by Martin Gibson M.D. T: Report ID: [id number] Reading Location: [id number] Procedure Note Martin Gibson MD - 03/16/2025 [...] osteoarthritis is present. Right-sided C3-C4 and bilateral C5-S7rlvbbiifm impingement. Thoracic spine: Mild dextrocurvature of the [...] signed by Martin CORBIN T: Report ID: [id number] Reading Location: [place] [address] Amber Gaspar NP IMG XR PROCEDURES Final [...] signed by Martin CORBIN T: Report ID: [id number] Reading Location: [id number] Procedure Note Martin Gibson MD - 03/16/2025 [...] osteoarthritis is present. Right-sided C3-C4 and bilateral C5-S2whfmsmgac impingement. Thoracic spine: Mild dextrocurvature of the [...] by Martin Gibson M.D. T: Report ID: [id number] Reading Location: [place] [address] Amber Gaspar NP IMG XR PROCEDURES Final Res ult * IN INJECTION SINGLE/DERMATOLOGY NURSE PRACTITIONER TRIGGER POINT 1/2 MUSCLES (03/15/2025 10:30 AM [...] with no immediate complications us Amber Gaspar COUNTER TACKER IN CLINIC/BEDSIDE ORDERABLE S Final Result * [...] by Tomás Quiros M.D. T: Report ID: [id number] Reading Location: [id number] Procedure Note Tomás Quiros MD - 03/01/2025 [...] by Tomás Quiros M.D. T: Report ID: [id number] Reading Location: [place] [address] Anyi CAMPA IMG XR PROCEDURES Final Re sult from Last 3 Months Insurance MEDICARE COMMERCIAL GENERIC MEDICARE COMMERCIAL GENERIC MEDICARE Care Teams Legal File Clerk Relationship Specialty Start Date End Date Rm Broderick MD [address] [facility] [address] [place] [address] PCP - General Family Medicine 12/18/24
--- OUTSIDE RECORDS SUMMARY | 2025-05-25 07:44 | XMS_ITS | Clinical Summary ---
Author Organization [facility] Address [address] [place] [address] Care Team Providers Care Dump Motor Operator Name Role Phone Maggy Collins Primary Care Provider Allergies Active Allergy Reactions [...] Description 03/28/2025 9:10 AM CDT Anesthesia Event [facility] [address] Ana Paula Espinoza MD Jackson, Samantha Rae, FNP 03/28/2025 9:09 AM CDT - 03/28/2025 10:03 AM CDT Surgery [facility] [place] [address] Tomás Polanco MD CYSTOSCOPY AND BULKING AGENT 03/28/2025 7:15 AM CDT - 03/28/2025 11:05 AM CDT Hospital Encounter [facility] [place] [address] Tomás Polanco MD Discharge Disposition: Home or Self Care (Routine Discharge) 03/28/2025 Travel 03/25/2025 Prep for Procedure [facility] Pre-Admission Testing [facility] [place] [address] Tomás Polanco MD 03/24/[address] [facility] [place] [address] Tomás Polanco MD 03/21/2025 Travel from Last [...] this topic Medical Devices Implanted Type Area Certified Driver Examiner Device Identifier Shelf Expiration Date Model / Serial / Lot Implant Urological Bulkamid Bulk Urethral Sterile Latex Free - [id number] Implanted:Qty: 1 on 03/28/2025 by Tomás Polanco MD at [facility] Urology N/A: Urethra [employer] 07/07/2027 [id number] / / [id number] Procedures Procedure Name Priority Date/Time Associated Diagnosis Comments ENDOSCOPIC INJECTION/IMPLANT 03/28/2025 9:10 AM CDT STRESS INCONTINENCE, FEMALE; 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
--- OUTSIDE RECORDS SUMMARY | 2025-05-25 07:44 | XMS_ITS | Encounter Summary ---
Author Organization [facility] Address [address] [facility] Attn: Epic Prelude ADT [place] [address] Care Team Providers Care Pre Sales Network Engineer Name Role Phone Rm Broderick MD Primary Care Provider Encounter Details Date Type Department Care Team (Late st Contact Info) Description 01/10/1999 Outpatient Historical Social History Tobacco Use Types Packs/Day Years Used Date Smoking Tobacco: Never Assessed Comments Unknown Sex and Gender Information Value Date Recorded Sex Assigned at Not on file Legal Sex Female 3:16 AM ASSISTANT SPA DIRECTOR Gender Identity Not on file Sexual Orientation Not on file documented as of this encounter Plan of Treatment Upcoming Encounters Date Type Department Care Team (Late st Contact Info) Description 06/21/2025 11:45 AM CDT Office Visit [facility] Oncology and Hematology - [place] [address] [place] [address] [address] [place] [phone] Carlos Desouza MD [address] [facility] [address] [place] [address] documented as of this encounter Visit Diagnoses Not on filedocumented in this encounter Care Teams Pre Sales Network Engineer Relationship Specialty Start Date End Date Rm Broderick MD [address] [facility] [address] [place] [address] PCP - General Family Practice 02/15/25 documented as of this encounter
--- OUTSIDE RECORDS SUMMARY | 2025-05-25 07:44 | XMS_ITS | Encounter Summary ---
Author Organization [facility] Address [address] [place] [address] Care Team Providers Care Director Patient Accounting Name Role Phone Iliana Gonzalez MD Primary Care Provider Rm Broderick MD Primary Care Provider Reason for Visit * Reason Onset Date Comments Pre-Surgical Call 01/20/2022 Encounter Details Date Type Department Care Team (Late st Contact Info) Description 01/20/2022 Telephone [facility] [place] [address] [facility] [address] [place] [address] Gurpreet Camp MD [address] [facility] [address] [place] [address] Pre-Surgical Call Social History Tobacco Use Types [...] on file Legal Sex Female 1:48 AM TIMBER TREATING TANK OPERATOR Gender Identity Not on file Sexual Orientation Not on file documented as of this encounter Plan of Treatment Not on file documented as of this encounter Goals Goal Patient Goal Type Associated Problems Recent Progress Patient-Stated? Author CCM Chronic Pain Care Plan Chronic Care Management On track(2020 1:08 PM TIMBER TREATING TANK OPERATOR) Joi Navarrete, RN Note: Problem: Chronic [...] COVID: Suspected 09/27/2024 09/27/2024 09/27/2024 6:23 PM TIMBER TREATING TANK OPERATOR documented as of this encounter Care Teams Director Patient Accounting Relationship Specialty Start Date End Date Iliana Gonzalez MD [address] [address] [place] [address] PCP - General 03/30/17 12/17/24 Rm Broderick MD [address] [facility] [address] [place] [address] PCP - General Family Medicine 12/18/24 documented as of this encounter
--- OUTSIDE RECORDS SUMMARY | 2025-05-25 07:44 | XMS_ITS | Clinical Summary ---
Author Organization [facility] Address [address] [place] [address] Care Team Providers Care Turn Out Name Role Phone Rm Broderick MD Primary [...] a day as needed for pain Active tnixtzhw50-qvxt- Lmfolate-algal 27 mg iron-1.13 mg-581.92 mg capsule Take 1 tablet by mouth daily Active albuterol HFA (PROVENTIL HFA,VENTOLIN HFA,PROAIR HFA) 90 mcg/actuation inhaler Inhale 2 puffs every 6 (six) hours as needed Active levothyroxine (SYNTHROID) 100 mcg tablet Take 1 tablet (100 mcg total) by mouth anode rebuilder before breakfast Active fluticasone-umec lidin-vilanter (Trelegy Ellipta) [...] Type Department Care Team Description 04/26/2025 Telephone [facility] Orthopedics and Sports Medicine [address] [place] [address] [place] [phone] Amber Gaspar NP 04/26/2025 Telephone [facility] Orthopedics and Sports Medicine [address] [place] [phone] Amber Gaspar NP 04/25/2025 9:16 AM CDT - 04/25/2025 11:59 PM CDT Hospital Encounter [facility] MRI [address] [place] [address] Chronic neck pain; Foraminal stenosis of cervical [...] - 04/25/2025 11:59 PM CDT Hospital Encounter [facility] MRI [address] [place] [address] Chronic bilateral thoracic back pain; DDD (degenerative disc disease), thoracic, multilevel; History of thoracic spinal fusion, T10-T12 (1992); Muscle weakness of extremities, upper and lower Discharge Disposition: Discharge to home or self care 03/25/2025 Telephone [facility] Medical [facility] Cardiology [address] [facility] [address] [place] [phone] Wilmar Kraus MD 03/15/2025 11:25 AM CDT - 03/15/2025 11:59 PM CDT Hospital Encounter [facility] Diag Imaging [address] [place] [address] Thoracic spine pain; Neck pain Discharge Disposition: Discharge to home or self care 03/15/2025 10:30 AM CDT Office Visit [facility] Orthopedics and Sports Medicine [address] [place] [phone] Amber Gaspar NP Chronic neck pain; Foraminal [...] lower 02/27/2025 9:30 AM CDT Office Visit [facility] Medical Group Orthopedics and Sports Medicine [facility] [address] [place] [phone] Anyi Dick PA Other closed fracture of distal end of left fibula with routine healing, subsequent encounter (Primary Dx) 02/27/2025 9:24 AM CDT - 02/27/2025 11:59 PM CDT Hospital Encounter [facility] Diag Imaging [facility]0 [place] [address] Other closed fracture of distal end of [...] on file Legal Sex Female 1:48 AM CROSS CUT SAWYER Gender Identity Not on file Sexual Orientation Not on file Obstetrics History Last Filed Vital Signs Vital Sign Reading Time Taken Comments Blood Pressure 136/55 12/27/2024 1:00 PM CROSS CUT SAWYER Pulse 73 12/27/2024 1:00 PM CROSS CUT SAWYER Temperature 36.8 C (98.2 F) 12/27/2024 10:28 AM CROSS CUT SAWYER Respiratory Rate 19 12/27/2024 1:00 PM CROSS CUT SAWYER Oxygen Saturation 99% 12/27/2024 1:00 PM CROSS CUT SAWYER Inhaled Oxygen Concentration - - Weight 78 [...] Pfizer risk series) 11/11/2021 10/21/2021 Influenza Vaccine (#1) 2025 Goals Goal Patient Goal Type Associated Problems Recent Progress Patient-Stated? Author CCM Chronic Pain Care Plan Chronic Care Management On track(2020 1:08 PM CROSS CUT SAWYER) Joi Navarrete, RN Note: Problem: Chronic Pain Goals: 1. Minimize further functional decline 2. Maximize quality of life 3. Control pain Strategies: - Activity/exercise program recommendation - Conservative stepwise pain medicine strategy with multi-disciplinary approach - Recommend healthy lifestyle strategies and compensatory methods as needed Medical Devices Implanted Type Area Obiee Architect Device Identifier Shelf Expiration Date Model / [...] 03/15/2025 11:35 AM CDT Thoracic spine pain [place] INJECTION SINGLE/YARD MANAGER TRIGGER POINT 1/2 MUSCLES Routine 03/15/2025 10:30 [...] is mild left neuroforaminal stenosis. There is klok-bj-fyruhvgm spinal canal stenosis. C3-C4: Posterior disc osteophyte [...] Robles Card M.D. MM T: Report ID: [id number] Reading Location: [place] [address] Procedure Note Robles Card MD - 04/25/2025 [...] is mild left neuroforaminal stenosis. There is hpkb-ae-hnwygksu spinal canal stenosis. C3-C4: Posterior disc osteophyte [...] Robles Card M.D. MM T: Report ID: [id number] Reading Location: [id number] Amber KelliGarland Gaspar NP IMG MRI PROCEDURES [...] is mild left neuroforaminal stenosis. There is shzm-rk-gxucbmka spinal canal stenosis. C3-C4: Posterior disc osteophyte [...] Robles Card M.D. MM T: Report ID: [id number] Reading Location: [place] [address] Procedure Note Robles Card MD - 04/25/2025 [...] is mild left neuroforaminal stenosis. There is rgjg-bj-tzetkgco spinal canal stenosis. C3-C4: Posterior disc osteophyte [...] Robles Card M.D. MM T: Report ID: [id number] Reading Location: [id number] Amber PereiraGarland Chasity APPEALS REFEREE IMG MRI PROCEDURES Final Re sult * [...] signed by Martin CORBIN T: Report ID: [id number] Reading Location: [id number] Procedure Note Martin Gibson MD - 03/16/2025 [...] osteoarthritis is present. Right-sided C3-C4 and bilateral C5-O3cwzbubexo impingement. Thoracic spine: Mild dextrocurvature of the [...] by Martin Gibson M.D. T: Report ID: [id number] Reading Location: [place] [address] Amber Gaspar NP IMG XR PROCEDURES Final [...] by Martin Gibson M.D. T: Report ID: [id number] Reading Location: [place] [address] Procedure Note Martin Gibson MD - 03/16/2025 [...] osteoarthritis is present. Right-sided C3-C4 and bilateral C5-C5llavofhkd impingement. Thoracic spine: Mild dextrocurvature of the [...] by Martin Gibson M.D. T: Report ID: [id number] Reading Location: [place] [address] Amber Gaspar APPEALS REFEREE IMG XR PROCEDURES Final Res ult * [place] INJECTION SINGLE/YARD MANAGER TRIGGER POINT 1/2 MUSCLES (03/15/2025 10:30 AM [...] well with no immediate complications Amber Gaspar APPEALS REFEREE IN CLINIC/BEDSIDE ORDERABLE S Final Result * [...] by Tomás Quiros M.D. T: Report ID: [id number] Reading Location: [id number] Procedure Note Tomás Quiros MD - 03/01/2025 [...] by Tomás Quiros M.D. T: Report ID: [id number] Reading Location: [id number] Anyi CAMPA IMG XR PROCEDURES Final Re sult from Last 3 Months Insurance MEDICARE COMMERCIAL GENERIC MEDICARE COMMERCIAL GENERIC MEDICARE Care Teams Turn Out Relationship Specialty Start Date End Date Rm Broderick MD [address] [facility] [address] [place] [address] PCP - General Family Medicine 12/18/24
--- OUTSIDE RECORDS SUMMARY | 2025-05-25 07:44 | XMS_ITS | Encounter Summary ---
Author Organization [facility] Address [address] [place] [address] Phone Care Team Providers Care Sales Service Professional Name Role Phone Iliana Gonzalez MD Primary Care Provider Rm Broderick MD Primary Care Provider Encounter Details Date Type Department Care Team (Late st Contact Info) Description 01/03/2018 Orders Only [facility] ProviderSharif MD [address] [place] [address] Social History Tobacco Use Types Packs/Day Years Used Date Smoking Tobacco: Never Assessed Alcohol Use Standard Drinks/Week Comments No 0 (1 standard drink = 0.6 oz pur e alcohol) Comments Unknown Sex and Gender Information Value Date Recorded Sex Assigned at Not on file Legal Sex Female 1:48 AM RODENT EXTERMINATOR Gender Identity Not on file Sexual Orientation Not on file documented as of this encounter Plan of Treatment Not on file documented as of this encounter Procedures Procedure Name Priority Date/Time Associated Diagnosis Comments CYTOLOGY 01/03/2018 12:00 AM RODENT EXTERMINATOR documented in this encounter Results * CYTOLOGY (01/03/2018 12:00 AM RODENT EXTERMINATOR) Narrative 01/03/2018 12:00 AM RODENT EXTERMINATOR Ordered by an unspecified provider. Historical Provider LAB CYTOLOGY ORDERABLES F inal Result documented in this encounter Visit Diagnoses Not on filedocumented in this encounter Additional Health Concerns Infection Onset Date Last Indicated Resolved Time COVID: Suspected 09/27/2024 09/27/2024 09/27/2024 6:23 PM RODENT EXTERMINATOR documented as of this encounter Care Teams Sales Service Professional Relationship Specialty Start Date End Date Iliana Gonzalez MD [address] [place] [address] PCP - General 03/30/17 12/17/24 Rm Broderick MD [address] [place] [address] PCP - General Family Medicine 12/18/24 documented as of this encounter
[2025-05-25 07:52] VITALS: BP 150/71; PULSE 98; RESP 20; TEMP 36.4; O2SAT 99
--- NOTE | 2025-05-25 08:03 | ECG_ITS ---
Test Date: 2025-05-25 08:42:59 Measurements Intervals [place] Rate: 86 P: 53 IN: 134 QRS: -9 QRSD: 96 T: 14 QT: 361 QTc: 433 Interpretive Statements SINUS RHYTHM WITH OCCASIONAL VENTRICULAR PREMATURE COMPLEXES INCOMPLETE RIGHT BUNDLE BRANCH BLOCK [90+ ms QRS DURATION, TERMINAL R IN V1/V2, 40+ ms S IN I/aVL/V4/V5/V6] VOLTAGE CRITERIA FOR LVH [MEETS CRITERIA IN ONE OF: R(aVL), S(V1), R(V5), R(V5/V6)+S(V1)] ABNORMAL ECG No previous ECG available for comparison Electronically Signed On 05-25-2025 08:58:34 CDT by Martin Mcknight M.D.
--- NOTE | 2025-05-25 08:06 | ED.GENADULT ---
HPI - General Adult General Chief complaint: Animal Bite Stated complaint: swollen hand/arm from cat bite Time Seen by Provider: 05/25/25 07:50 History of Present Illness HPI narrative: This is an 84-year-old female presenting for a cat bite. She was bit by her cat approximately 4-5 days ago. She did not get antibiotics until 2 days ago and was prescribed azithromycin by her primary care physician. Since then she has continued to have increased redness swelling and pain. She now has redness tracking up her arm. She was sent for IV antibiotics. Denies fevers chills nausea vomiting diarrhea. She denies chest pain abdominal pain or urinary symptoms. She does state she feels short of breath. Related Data Home Medications ?Medication ?Instructions ?Recorded ?Confirmed ?Last Taken ?Type aspirin 81 mg tablet,delayed 81 mg PO DAILY 09/20/19 05/25/25 03/19/25 10:00 History release 81 mg acetaminophen 650 mg 650 mg PO Q8H PRN Pain 04/13/23 05/25/25 04/02/24 History tablet,extended release (Tylenol 8 Hour) Lactobacillus 1 cap PO DAILY 10/07/23 05/25/25 03/29/25 08:00 History acidophilus-Bifidobac.animalis 2.5 1 cap billion cell capsule (Daily Probiotic) anastrozole 1 mg tablet 1 mg PO DAILY 01/27/24 05/25/25 03/27/25 08:00 History 1 mg apixaban 5 mg tablet (Eliquis) 2.5 mg PO BID 03/26/24 05/25/25 03/26/25 20:00 History 2.5 mg cholecalciferol (vitamin D3) 125 125 mcg PO DAILY 03/26/24 05/25/25 03/30/25 08:00 History mcg (5,000 unit) tablet (Vitamin 125 mcg D3) fluticasone fur. 100 mcg-umeclid 1 inh inhalation DAILY 03/26/24 05/25/25 03/29/25 08:00 History 62.5 mcg-vilant 25 mcg 1 inh inhalat.powder (Trelegy Ellipta) vibegron 75 mg tablet (Gemtesa) 75 mg PO DAILY 05/19/24 05/25/25 03/27/25 08:00 History 75 mg docusate sodium 100 mg capsule 100 mg PO DAILY 03/30/25 05/25/25 03/27/25 08:00 History 100 mg ferrous sulfate 325 mg (65 mg 325 mg PO DAILY 03/30/25 05/25/25 03/27/25 08:00 History iron) tablet (Iron (ferrous 325 mg sulfate)) multivitamin (Daily Multi-Vitamin 1 tablet PO DAILY 03/30/25 05/25/25 03/27/25 08:00 History tablet) 1 tablet cholecalciferol (vitamin D3) 1,250 50,000 unit PO WEEKLY 03/31/25 05/25/25 03/30/25 History mcg (50,000 unit) tablet gabapentin 100 mg capsule See Rx Instructions .Route 03/31/25 05/25/25 03/29/25 20:00 History .COMPLEX PRN pain 100 mg prednisone 20 mg tablet 20 mg PO BID 05/03/25 05/25/25 Unknown History Allergies Allergy/AdvReac Type Severity Reaction Status Date / Time meperidine Allergy Severe stroke Verified 05/25/25 08:03 like sx morphine Allergy Severe Anaphylaxis Verified 05/25/25 08:03 gabapentin AdvReac Intermediate Confusion Verified 05/25/25 08:03 hydromorphone (From Dilaudid) AdvReac Intermediate Vomiting Verified 05/25/25 08:03 [facility] Past Medical History Medical History 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 Chronic anemia status post iron infusion Asthma Overactive bladder Arthritis Cerebrovascular accident involving cerebellum Deep venous thrombosis Pulmonary emboli (04/2023) Mitral valve regurgitation Incontinence of urine Generalized myasthenia gravis Lumbar spondylolysis Cervical spondylosis Barretts esophagus Nonerosive esophageal reflux disease Ventral hernia Overweight (BMI 25.0-29.9) Transient cerebral ischemia Chronic gastritis without bleeding Allergic rhinitis Chronic sinusitis Hiatal hernia without gangrene and obstruction Mixed hyperlipidemia Pancreatic cyst Postoperative hypothyroidism Surgical History Surgical History History of lumpectomy of left breast (09/2023) History of arthroplasty of right knee History of bilateral hip arthroplasty History of appendectomy 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 History of cystoscopy History of partial thyroidectomy History of incisional hernia repair History of colon surgery History of discectomy History of lumbar fusion History of fusion of cervical spine History of cholecystectomy History of bilateral hip replacements History of right knee joint replacement Family History Family History Father Patient's father is Family history of tuberculosis, Onset Age: 72 Diabetes mellitus Mother Family history of cardiomyopathy Family history of elevated blood lipids Hypertension Sibling Diabetes mellitus Hypertension Cerebrovascular accident Thyroid disorder Heart problem Social History Social History Social History: Surrogate medical decision maker: Janette Bliss, daughter ([phone]). Code status: Modified code, no intubation. Smoking status: Never smoker Second hand tobacco smoke exposure: No Alcohol intake: never Substance use: never Substance use type: does not use Do You Feel Safe in your Home?: Yes Lack of Transportation: No Lack of Food: Never True Current Housing: I Have Housing Concerned About Future Housing: No Difficulty Paying Gas/Electric Bills: No Difficulty Paying for Meds: No Currently Unemployed: No Education: High School Diploma/GED Difficulty w/ Childcare or Family Care: No Living arrangements: alone Additional living arrangements comments: . Lives in [place]. Occupation/Education: retired Spiritual care concerns: No Exam Narrative: APPEARANCE: No apparent distress. Head: atraumatic. EYES: EOMI, NOSE: Atraumatic NECK: Trachea midline RESPIRATORY: No increased rate of breathing CARDIOVASCULAR: RRR, ABDOMINAL: Non-distended MUSCULOSKELETAl: No obvious deformities NEURO: Alert. Moving 4/4 extremities SKIN:: Punctate injury to the dorsum of the right hand with surrounding erythema and swelling. Tracks to the proximal forearm. PSYCHIATRIC: Normal affect Course Vital Signs Vital signs: Vital Signs Temperature 97.6 F 05/25/25 07:52 Pulse Rate 98 05/25/25 07:52 Respiratory Rate 20 05/25/25 07:52 Blood Pressure 150/71 H 05/25/25 07:52 Pulse Oximetry 99 05/25/25 07:52 Oxygen Delivery Room Air 05/25/25 07:52 Temperature 97.6 F 05/25/25 07:52 Pulse Rate 84 05/25/25 13:31 Respiratory Rate 18 05/25/25 13:31 Blood Pressure 130/64 05/25/25 13:31 Pulse Oximetry 98 05/25/25 13:31 Oxygen Delivery Room Air 05/25/25 07:52 Medical Decision Making MDM Narrative Medical decision making narrative: -Course: 84-year-old female presenting failed outpatient management of the cat bite to the right hand. Patient is started on IV antibiotics. CT showed a regular abscess over the dorsum the wrist with involvement of the 2nd extensor compartment. Patient will likely need incision and drainage via hand specialist. We do not have Hand at our hospital this weekend. Patient will be transferred to [facility]. Care was discussed with the hand surgeon Dr. Oliveros. Patient will be transferred to ED to ED under Dr. Dykes. -DDX includes but is not limited to: Cellulitis, abscess Vital Signs Vital Signs: Vital Signs Temperature 97.6 F 05/25/25 07:52 Pulse Rate 98 05/25/25 07:52 Respiratory Rate 20 05/25/25 07:52 Blood Pressure 150/71 H 05/25/25 07:52 Pulse Oximetry 99 05/25/25 07:52 Oxygen Delivery Room Air 05/25/25 07:52 Temperature 97.6 F 05/25/25 07:52 Pulse Rate 84 05/25/25 13:31 Respiratory Rate 18 05/25/25 13:31 Blood Pressure 130/64 05/25/25 13:31 Pulse Oximetry 98 05/25/25 13:31 Oxygen Delivery Room Air 05/25/25 07:52 Lab Data 05/25/25 08:25 05/25/25 08:25 Labs: Lab Results 05/25/25 05/25/25 Range/Units 08:25 08:36 WBC 9.9 (4.5-10.0) K/mm3 RBC 3.37 L (4.2-5.4) M/mm3 Hgb 10.3 L (12.0-15.0) g/dL Hct 32.8 L (37.0-47.0) % MCV 97.3 (80-100) fl MCH 30.6 (26-34) pg MCHC 31.4 L (32-36) g/dl RDW 14.6 H (11.5-14.5) % Plt Count 248 D (150-375) k/mm3 MPV 10.5 H (7.4-10.4) fl Immature Gran % (Auto) 0.9 H (0-0.5) % Neut % (Auto) 77.3 H (45.5-73.1) % Lymph % (Auto) 11.8 L (18.3-44.2) % [place] % (Auto) 9.0 H (2.6-8.5) % Eos % (Auto) 0.6 (0-4.4) % Baso % (Auto) 0.4 (0.2-1.2) % Lymph # (Auto) 1.17 (0.9-3.2) K/mm3 [place] # (Auto) 0.9 H (0.1-0.6) K/mm3 Eos # (Auto) 0.1 (0-0.3) K/mm3 Baso # (Auto) 0.0 (0.0-0.1) K/mm3 Abs Immat Gran (auto) 0.09 H (0.00-0.031) K/mm3 Absolute Neuts (auto) 7.6 H (1.3-6.7) K/mm3 Absolute Nucleated RBC 0.000 (0.0-0.012) K/mm3 Nucleated RBC % 0.0 (0.0-0.2) % PT 12.4 (11.1-14.7) Seconds INR 0.9 APTT 27.4 (22.3-36.8) Seconds Sodium 138 (137-145) mmol/L Potassium 3.9 (3.4-5.0) mmol/L Chloride 107 (98-107) mmol/L Carbon Dioxide 26 (22-30) mmol/L Anion Gap 5 (4-12) mmol/L BUN 20 H (7-17) mg/dL Creatinine 1.08 H (0.7-1.0) mg/dL Estim Creat Clear Calc 40 ml/min Estimated GFR 48 L (59 - ) Glucose 98 (65-110) mg/dL Lactic Acid 1.2 (0.7-2.0) mmol/L Calcium 9.5 (8.4-10.2) mg/dL Total Bilirubin 0.4 (0.2-1.3) mg/dL AST 29 (14-36) U/L ALT 21 (6-35) U/L Alkaline Phosphatase 39 (38-126) U/L C-Reactive Protein 4.9 H (<1.0) mg/dL Total Protein 7.2 (6.3-8.2) g/dL Albumin 3.9 (3.5-5.1) g/dL Urine Color Yellow (Yellow) Urine Appearance Clear (Clear) Urine pH 5.5 (5.0-9.0) Ur Specific [place] 1.021 (1.001-1.035) Urine Protein Trace (Negative) mg/dL Urine Glucose (UA) Negative (Negative) mg/dL Urine Ketones Trace H (Negative) mg/dL Ur Blood (Man) Negative (Negative) Urine Nitrate Negative (Negative) Urine Bilirubin Negative (Negative) Urine Urobilinogen 0.2 (<2.0) mg/dL Leukocyte Esterase Rfl 2+ H (Negative) BRANDON/UL Urine RBC 0-2 (0-2) /hpf Urine WBC 21-50 H (0-3) /hpf Ur Squamous Epith Cells None seen (Few) /hpf Urine Bacteria None seen /hpf Urine Casts 0-2 Discharge Plan Discharge Clinical Impression: Cat bite, Abscess of hand Patient Disposition: Acute Care Hospital Condition: Stable Patient Language: Welsh Prescriptions: No Action Daily Probiotic 2.5 billion cell Capsule 1 cap PO DAILY aspirin 81 mg tablet,delayed release (DR/EC) 81 mg PO DAILY anastrozole 1 mg tablet 1 mg PO DAILY prednisone 20 mg tablet 40 mg PO DAILY Qty: 120 2RF Rx Instructions: Change to 60 mg alternate days for 1 month then 50 mg alternate day for 1 month then 40 mg alternate day to continue pyridostigmine bromide [Mestinon] 60 mg tablet 60 mg PO QID Qty: 120 6RF Rx Instructions: may start with half tablet 3 to 4 times a day increase up to 1 tablet 3 to 4 times a day azithromycin [Zithromax] 250 mg tablet See Rx Instructions PO .COMPLEX Qty: 6 1RF Rx Instructions: take 500 mg today (day 1), then 250 mg for 4 days (days 2-5) PO Gemtesa 75 mg tablet 75 mg PO DAILY prednisone 20 mg tablet 20 mg PO BID cholecalciferol (vitamin D3) [Vitamin D3] 125 mcg (5,000 unit) Tablet 125 mcg PO DAILY Eliquis 5 mg tablet 2.5 mg PO BID Rx Instructions: Take 0.5 tablet by mouth twice daily Trelegy Ellipta 100-62.5-25 mcg blister with device 1 inh inhalation DAILY Rx Instructions: Rinse mouth and spit after each use ferrous sulfate [Iron (ferrous sulfate)] 325 mg (65 mg iron) tablet 325 mg PO DAILY multivitamin [Daily Multi-Vitamin] Tablet 1 tablet PO DAILY docusate sodium 100 mg capsule 100 mg PO DAILY cholecalciferol (vitamin D3) 1,250 mcg (50,000 unit) tablet 50,000 unit PO WEEKLY Rx Instructions: saturdays gabapentin 100 mg capsule See Rx Instructions .ROUTE .COMPLEX PRN (Reason: pain) Rx Instructions: TAKE 2 CAPSULES BY MOUTH THREE TIMES DAILY PRN; acetaminophen [Tylenol 8 Hour] 650 mg tablet extended release 650 mg PO Q8H PRN (Reason: Pain) Patient Comments: Patient states she does not take Tylenol. albuterol sulfate [Ventolin HFA] 90 mcg/actuation HFA aerosol inhaler 2 puff inhalation QID PRN (Reason: shortness of breath or wheezing) Qty: 8.5 3RF levothyroxine 100 mcg tablet See Rx Instructions .ROUTE .COMPLEX Qty: 90 2RF Dose Instruction: TAKE 1 TABLET BY MOUTH EVERY DAY Rx Instructions: TAKE 1 TABLET BY MOUTH EVERY DAY omeprazole 40 mg capsule,delayed release(DR/EC) 40 mg PO DAILY Qty: 90 1RF Follow-up/Referrals: Rm Broderick MD [Primary Care Provider] -
[2025-05-25 08:35] LABS: Hematocrit 32.8 % (37.0-47.0); Hemoglobin 10.3 g/dL (12.0-15.0); Immature Granulocyte Percent A 0.9 % (0-0.5); Lymphocytes Absolute Auto 1.17 K/mm3 (0.9-3.2); Mean Corpuscular HGB Conc 31.4 g/dl (32-36); Mean Corpuscular Hemoglobin 30.6 pg (26-34); Mean Corpuscular Volume 97.3 fl (80-100); Nucleated Red Blood Cells Absolute Auto 0.000 K/mm3 (0.0-0.012); Nucleated Red Blood Cells Perc 0.0 % (0.0-0.2); Platelet Count Result 248 k/mm3 (150-375); Red Blood Count 3.37 M/mm3 (4.2-5.4); White Blood Count 9.9 K/mm3 (4.5-10.0)
--- OUTSIDE RECORDS SUMMARY | 2025-05-25 08:39 | XMS_ITS | Encounter Summary ---
Author Organization [facility] Address [address] [place] [address] Phone Care Team Providers Care Floor Renovator Name Role Phone Iliana Gonzalez MD Primary Care Provider Rm Broderick MD Primary Care Provider Encounter Details Date Type Department Care Team (Late st Contact Info) Description 01/03/2018 Orders Only [facility] ProviderSharif MD [address] [place] [address] Social History Tobacco Use Types Packs/Day Years Used Date Smoking Tobacco: Never Assessed Alcohol Use Standard Drinks/Week Comments No 0 (1 standard drink = 0.6 oz pur e alcohol) Comments Unknown Sex and Gender Information Value Date Recorded Sex Assigned at Not on file Legal Sex Female 1:48 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 Historical Provider LAB CYTOLOGY ORDERABLES F inal Result documented in this encounter Visit Diagnoses Not on filedocumented in this encounter Additional Health Concerns Infection Onset Date Last Indicated Resolved Time COVID: Suspected 09/27/2024 09/27/2024 09/27/2024 6:23 PM WOOD CARVING LATHE OPERATOR documented as of this encounter Care Teams Floor Renovator Relationship Specialty Start Date End Date Iliana Gonzalez MD [address] [place] [address] PCP - General 03/30/17 12/17/24 Rm Broderick MD [address] [place] [address] PCP - General Family Medicine 12/18/24 documented as of this encounter
--- OUTSIDE RECORDS SUMMARY | 2025-05-25 08:39 | XMS_ITS | Encounter Summary ---
Author Organization [facility] Address [address] [place] [address] Care Team Providers Care Tender Labor Name Role Phone Iliana Gonzalez MD Primary Care Provider Rm Broderick MD Primary Care Provider Reason for Visit * Reason Onset Date Comments Pre-Surgical Call 01/20/2022 Encounter Details Date Type Department Care Team (Late st Contact Info) Description 01/20/2022 Telephone [facility] [address] [facility] [address] [place] [address] Gurpreet Camp MD [address] [facility] [address] [place] [address] Pre-Surgical Call Social History Tobacco Use Types [...] on file Legal Sex Female 1:48 AM 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 Author CCM Chronic Pain Care Plan Chronic Care Management On track(2020 1:08 PM PIPELINE SUPERINTENDENT) Joi Navarrete, RN Note: Problem: Chronic Pain [...] COVID: Suspected 09/27/2024 09/27/2024 09/27/2024 6:23 PM PIPELINE SUPERINTENDENT documented as of this encounter Care Teams Tender Labor Relationship Specialty Start Date End Date Iliana Gonzalez MD [address] [place] [address] PCP - General 03/30/17 12/17/24 Rm Broderick MD [address] [place] [address] PCP - General Family Medicine 12/18/24 documented as of this encounter
--- OUTSIDE RECORDS SUMMARY | 2025-05-25 08:39 | XMS_ITS | Clinical Summary ---
Author Organization [facility] Address [address] [facility] [place] [address] Care Team Providers Care Hearing Healthcare Practitioner Name Role Phone Iliana Gonzalez MD Primary Care Provider + Source Comments [facility],non-owned Affiliates and Associated Physician Practices is amultiple site organization consisting of ambulatory clinics and hospital sitesin [place], [place], [place] and [place]. This disclosure is being madepursuant to the Care Everywhere program and may not contain all information available regarding this patient. Last updated 18.[facility] Allergies Active Allergy Reactions Criticality Noted Date [...] on file Legal Sex Female 5:25 AM LEATHER COLORER Gender Identity Not on file Sexual Orientation Not on file Last Filed Vital Signs Vital Sign Reading Time Taken Comments Blood Pressure 120/78 10/30/2018 3:38 PM LEATHER COLORER Pulse - - Temperature 36.7 C (98 F) 10/30/2018 3:38 PM LEATHER COLORER Respiratory Rate 16 10/30/2018 3:38 PM LEATHER COLORER Oxygen Saturation 97% 10/30/2018 3:38 PM LEATHER COLORER Inhaled Oxygen Concentration - - Weight 72.6 kg (160 lb) 10/30/2018 3:38 PM LEATHER COLORER Height 171.5 cm (5' 7.5) 10/30/2018 3:38 PM LEATHER COLORER Body Mass Index 24.69 10/30/2018 3:38 PM LEATHER COLORER Plan of Treatment Health Maintenance Due Date [...] fective for All Dates) Name:Izaiah Neha Member ID:[id number] Relation to Subscriber:Self Name:KelleyrosalvaEla cheungne Subscriber ID:[id number] Payer ID:Not on file Group ID:Not on file Type:Medicare Address: [place] [phone] MEDICARE SUPPLEMENT PAYOR GENERIC * Guarantor: PHIL BLISS Account Type Relation to Patient Date of Phone Billing Address Personal/Family [address] [place] [phone] MEDICARE MEDICARE SUPPLEMENT PAYOR GENERIC * Guarantor: PHIL BLISS Account Type Relation to Patient Date of Phone Billing Address Personal/Family [address] [place] [address] MEDICARE MEDICARE SUPPLEMENT PAYOR GENERIC * Guarantor: PHIL BLISS Account Type Relation to Patient Date of Phone Billing Address Personal/Family [address] [place] [phone] MEDICARE Member Subscriber Plan / Payer (Ef fective for All Dates) Name:Neha Bliss Member ID:[id number] Relation to Subscriber:Self Name:Neha Bliss Subscriber ID:[id number] Payer ID:Not on file Group ID:Not on file Type:Medicare Address: [place] [phone] MEDICARE SUPPLEMENT PAYOR GENERIC Care Teams Hearing Healthcare Practitioner Relationship Specialty Start Date End Date Iliana Gonzalez MD [address] [place] [address] PCP - General 02/25/21
--- OUTSIDE RECORDS SUMMARY | 2025-05-25 08:39 | XMS_ITS | Referral Summary ---
Author Organization [facility] Address [address] [place] [address] Care Team Providers Care Jumpbasting Lining Baster Name Role Phone Rm Broderick MD Primary Care Provider Encounters Date Type Department Care Team Description 04/26/2025 Telephone [facility] Medical [facility] Orthopedics and Sports Medicine [address] [place] [phone] Amber Gaspar NP 04/26/2025 Telephone [facility] Orthopedics and Sports Medicine [address] [place] [phone] Amber Gaspar NP 04/25/2025 9:16 AM CDT - 04/25/2025 11:59 PM CDT Hospital Encounter [facility] MRI [address] [place] [address] Chronic neck pain; Foraminal stenosis of cervical [...] - 04/25/2025 11:59 PM CDT Hospital Encounter [facility] MRI [address] [place] [address] Chronic bilateral thoracic back pain; DDD (degenerative disc disease), thoracic, multilevel; History of thoracic spinal fusion, T10-T12 (1992); Muscle weakness of extremities, upper and lower Discharge Disposition: Discharge to home or self care 03/25/2025 Telephone [facility] Medical Group Cardiology [address] [place] [phone] Wilmar Kraus MD 03/15/2025 11:25 AM CDT - 03/15/2025 11:59 PM CDT Hospital Encounter [facility] Diag Imaging [address] [place] [address] Thoracic spine pain; Neck pain Discharge Disposition: Discharge to home or self care 03/15/2025 10:30 AM CDT Office Visit [facility] Orthopedics and Sports Medicine [address] [place] [address] [address] [place] [address] Amber Gaspar NP Chronic neck pain; Foraminal [...] - 02/27/2025 11:59 PM CDT Hospital Encounter [facility] Diag Imaging [address] [place] [address] Other closed fracture of distal end of left fibula, initial encounter Discharge Disposition: Discharge to home or self care 02/27/2025 9:30 AM CDT Office Visit [facility] Medical Group Orthopedics and Sports Medicine [address] [place] [address] [address] [place] [phone] Anyi Dick PA Other closed fracture of [...] a day as needed for pain Active toiofqxs05-retk- Lmfolate-algal 27 mg iron-1.13 mg-581.92 mg capsule Take 1 tablet by mouth daily Active albuterol HFA (PROVENTIL HFA,VENTOLIN HFA,PROAIR HFA) 90 mcg/actuation inhaler Inhale 2 puffs every 6 (six) hours as needed Active levothyroxine (SYNTHROID) 100 mcg tablet Take 1 tablet (100 mcg total) by mouth aircraft pneudraulic systems mechanic before breakfast Active fluticasone-umec lidin-vilanter (Trelegy Ellipta) [...] on file Legal Sex Female 1:48 AM PROPERTY WORKER Gender Identity Not on file Sexual Orientation Not on file Last Filed Vital Signs Vital Sign Reading Time Taken Comments Blood Pressure 136/55 12/27/2024 1:00 PM PROPERTY WORKER Pulse 73 12/27/2024 1:00 PM PROPERTY WORKER Temperature 36.8 C (98.2 F) 12/27/2024 10:28 AM PROPERTY WORKER Respiratory Rate 19 12/27/2024 1:00 PM PROPERTY WORKER Oxygen Saturation 99% 12/27/2024 1:00 PM PROPERTY WORKER Inhaled Oxygen Concentration - - Weight 78 kg (171 lb 15.3 oz) 04/25/2025 10:13 A M CDT Height 170.2 cm (5' 7) 04/25/2025 10:13 AM CDT Body Mass Index 26.93 04/25/2025 10:13 AM CDT Plan of Treatment Not on file Goals Goal Patient Goal Type Associated Problems Recent Progress Patient-Stated? Author CCM Chronic Pain Care Plan Chronic Care Management On track(2020 1:08 PM PROPERTY WORKER) Joi Navarrete, RN Note: Problem: Chronic Pain Goals: 1. Minimize further functional decline 2. Maximize quality of life 3. Control pain Strategies: - Activity/exercise program recommendation - Conservative stepwise pain medicine strategy with multi-disciplinary approach - Recommend healthy lifestyle strategies and compensatory methods as needed Medical Devices Implanted Type Area Ethanol Operator Device Identifier Shelf Expiration Date Model / [...] 03/15/2025 11:35 AM CDT Thoracic spine pain OR INJECTION SINGLE/BASE FILLER OPERATOR TRIGGER POINT 1/2 MUSCLES Routine 03/15/2025 10:30 [...] is mild left neuroforaminal stenosis. There is edjr-jh-abauptgg spinal canal stenosis. C3-C4: Posterior disc osteophyte [...] by Robles Card M.D. T: Report ID: [id number] Reading Location: [place] [address] Procedure Note Robles Card MD - 04/25/2025 [...] is mild left neuroforaminal stenosis. There is ubkh-pe-tafmhzff spinal canal stenosis. C3-C4: Posterior disc osteophyte [...] Robles Card M.D. MM T: Report ID: [id number] Reading Location: [place] [address] Amber Gaspar CYTOLOGY TECHNOLOGIST IMG MRI PROCEDURES Final Re sult * [...] is mild left neuroforaminal stenosis. There is gyeu-zp-udsonuoj spinal canal stenosis. C3-C4: Posterior disc osteophyte [...] Robles Card M.D. MM T: Report ID: [id number] Reading Location: [place] [address] Procedure Note Robles Card MD - 04/25/2025 [...] is mild left neuroforaminal stenosis. There is azud-xh-ademgkoa spinal canal stenosis. C3-C4: Posterior disc osteophyte [...] Robles Card M.D. MM T: Report ID: [id number] Reading Location: [place] [address] Amber Gaspar CYTOLOGY TECHNOLOGIST IMG MRI PROCEDURES Final Re sult * [...] by Martin Gibson M.D. T: Report ID: [id number] Reading Location: [id number] Procedure Note Martin Gibson MD - 03/16/2025 [...] osteoarthritis is present. Right-sided C3-C4 and bilateral C5-O6wgjspxfck impingement. Thoracic spine: Mild dextrocurvature of the [...] signed by Martin CORBIN T: Report ID: [id number] Reading Location: [place] [address] Amber Gaspar NP IMG XR PROCEDURES Final [...] signed by Martin CORBIN T: Report ID: [id number] Reading Location: [id number] Procedure Note Martin Gibson MD - 03/16/2025 [...] osteoarthritis is present. Right-sided C3-C4 and bilateral C5-H8hsclelwdy impingement. Thoracic spine: Mild dextrocurvature of the [...] by Martin Gibson M.D. T: Report ID: [id number] Reading Location: [place] [address] Amber Gaspar NP IMG XR PROCEDURES Final Res ult * OR INJECTION SINGLE/BASE FILLER OPERATOR TRIGGER POINT 1/2 MUSCLES (03/15/2025 10:30 AM [...] with no immediate complications us Amber Gaspar CYTOLOGY TECHNOLOGIST IN CLINIC/BEDSIDE ORDERABLE S Final Result * [...] by Tomás Quiros M.D. T: Report ID: [id number] Reading Location: [id number] Procedure Note Tomás Quiros MD - 03/01/2025 [...] by Tomás Quiros M.D. T: Report ID: [id number] Reading Location: [place] [address] Anyi CAMPA IMG XR PROCEDURES Final Re sult from Last 3 Months Insurance MEDICARE COMMERCIAL GENERIC MEDICARE COMMERCIAL GENERIC MEDICARE Care Teams Jumpbasting Lining Baster Relationship Specialty Start Date End Date Rm Broderick MD [address] [facility] [address] [place] [address] PCP - General Family Medicine 12/18/24
--- OUTSIDE RECORDS SUMMARY | 2025-05-25 08:39 | XMS_ITS | Clinical Summary ---
Author Organization [facility] Address [address] [place] [address] Care Team Providers Care Utility Mechanic Supervisor Name Role Phone Rm Broderick MD [...] a day as needed for pain Active bbzgydwx85-vpwm- Lmfolate-algal 27 mg iron-1.13 mg-581.92 mg capsule Take 1 tablet by mouth daily Active albuterol HFA (PROVENTIL HFA,VENTOLIN HFA,PROAIR HFA) 90 mcg/actuation inhaler Inhale 2 puffs every 6 (six) hours as needed Active levothyroxine (SYNTHROID) 100 mcg tablet Take 1 tablet (100 mcg total) by mouth organizational effectiveness director before breakfast Active fluticasone-umec lidin-vilanter (Trelegy Ellipta) [...] Type Department Care Team Description 04/26/2025 Telephone [facility] Orthopedics and Sports Medicine [address] [place] [address] [place] [phone] Amber Gaspar NP 04/26/2025 Telephone [facility] Orthopedics and Sports Medicine [address] [place] [phone] Amber Gaspar NP 04/25/2025 9:16 AM CDT - 04/25/2025 11:59 PM CDT Hospital Encounter [facility] MRI [address] [place] [address] Chronic neck pain; Foraminal stenosis of cervical [...] 11:59 PM CDT Hospital Encounter [facility] MRI [address] [place] [address] Chronic bilateral thoracic back pain; DDD (degenerative disc disease), thoracic, multilevel; History of thoracic spinal fusion, T10-T12 (1992); Muscle weakness of extremities, upper and lower Discharge Disposition: Discharge to home or self care 03/25/2025 Telephone [facility] Medical [facility] Cardiology [address] [facility] [address] [place] [phone] Wilmar Kraus MD 03/15/2025 11:25 AM CDT - 03/15/2025 11:59 PM CDT Hospital Encounter [facility] Diag Imaging [address] [place] [address] Thoracic spine pain; Neck pain Discharge Disposition: Discharge to home or self care 03/15/2025 10:30 AM CDT Office Visit [facility] Orthopedics and Sports Medicine [address] [place] [phone] Amber Gaspar NP Chronic neck pain; Foraminal [...] HOSPITAL Medical Group Orthopedics and Sports Medicine [facility] [address] [place] [phone] Anyi Dick PA Other closed fracture of distal end of left fibula with routine healing, subsequent encounter (Primary Dx) 02/27/2025 9:24 AM CDT - 02/27/2025 11:59 PM CDT Hospital Encounter [facility] Diag Imaging [facility] [place] [address] Other closed fracture of distal end of [...] on file Legal Sex Female 1:48 AM FIRE MEDIC Gender Identity Not on file Sexual Orientation Not on file Obstetrics History Last Filed Vital Signs Vital Sign Reading Time Taken Comments Blood Pressure 136/55 12/27/2024 1:00 PM FIRE MEDIC Pulse 73 12/27/2024 1:00 PM FIRE MEDIC Temperature 36.8 C (98.2 F) 12/27/2024 10:28 AM FIRE MEDIC Respiratory Rate 19 12/27/2024 1:00 PM FIRE MEDIC Oxygen Saturation 99% 12/27/2024 1:00 PM FIRE MEDIC Inhaled Oxygen Concentration - - Weight 78 [...] Chronic Care Management On track(2020 1:08 PM FIRE MEDIC) Joi Navarrete, RN Note: Problem: Chronic Pain Goals: 1. Minimize further functional decline 2. Maximize quality of life 3. Control pain Strategies: - Activity/exercise program recommendation - Conservative stepwise pain medicine strategy with multi-disciplinary approach - Recommend healthy lifestyle strategies and compensatory methods as needed Medical Devices Implanted Type Area Mechanical Commissioning Engineer Device Identifier Shelf Expiration Date Model [...] AM CDT Thoracic spine pain IN INJECTION SINGLE/PHARMACEUTICAL OFFICER TRIGGER POINT 1/2 MUSCLES Routine 03/15/2025 10:30 [...] is mild left neuroforaminal stenosis. There is ldfa-uf-apwxgqch spinal canal stenosis. C3-C4: Posterior disc osteophyte [...] Robles Card M.D. MM T: Report ID: [id number] Reading Location: [place] [address] Procedure Note Robles Card MD - 04/25/2025 [...] is mild left neuroforaminal stenosis. There is zrfg-ep-piwqlekx spinal canal stenosis. C3-C4: Posterior disc osteophyte [...] Robles Card M.D. MM T: Report ID: [id number] Reading Location: [id number] Amber KelliGarland Gaspar NP IMG MRI PROCEDURES [...] is mild left neuroforaminal stenosis. There is cksv-sk-jkkdysao spinal canal stenosis. C3-C4: Posterior disc osteophyte [...] Robles Card M.D. MM T: Report ID: [id number] Reading Location: [place] [address] Procedure Note Robles Card MD - 04/25/2025 [...] is mild left neuroforaminal stenosis. There is gtpl-mw-gnexuctf spinal canal stenosis. C3-C4: Posterior disc osteophyte [...] Robles Card M.D. MM T: Report ID: [id number] Reading Location: [id number] Amber PereiraGarland [facility] MRI PROCEDURES Final Re sult * [...] signed by Martin CORBIN T: Report ID: [id number] Reading Location: [id number] Procedure Note Martin Gibson MD - 03/16/2025 [...] osteoarthritis is present. Right-sided C3-C4 and bilateral C5-W0veyubkmfc impingement. Thoracic spine: Mild dextrocurvature of the [...] by Martin Gibson M.D. T: Report ID: [id number] Reading Location: [place] [address] Amber Gaspar NP IMG XR PROCEDURES Final [...] by Martin Gibson M.D. T: Report ID: [id number] Reading Location: [place] [address] Procedure Note Martin Gibson MD - 03/16/2025 [...] osteoarthritis is present. Right-sided C3-C4 and bilateral C5-S4cfltpsfxi impingement. Thoracic spine: Mild dextrocurvature of the [...] by Martin Gibson M.D. T: Report ID: [id number] Reading Location: [place] [address] Amber Gaspar [facility] IM[facility] XR PROCEDURES Final Res ult * IN INJECTION SINGLE/PHARMACEUTICAL OFFICER TRIGGER POINT 1/2 MUSCLES (03/15/2025 10:30 AM [...] well with no immediate complications Amber Gaspar [facility] IN CLINIC/BEDSIDE ORDERABLE S Final Result * [...] by Tomás Quiros M.D. T: Report ID: [id number] Reading Location: [id number] Procedure Note Tomás Quiros MD - 03/01/2025 [...] by Tomás Quiros M.D. T: Report ID: [id number] Reading Location: [id number] Anyi CAMPA IMG XR PROCEDURES Final Re sult from Last 3 Months Insurance MEDICARE COMMERCIAL GENERIC MEDICARE COMMERCIAL GENERIC MEDICARE Care Teams Utility Mechanic Supervisor Relationship Specialty Start Date End Date Rm Broderick MD [address] [facility] [address] [place] [address] PCP - General Family Medicine 12/18/24
--- OUTSIDE RECORDS SUMMARY | 2025-05-25 08:39 | XMS_ITS | Encounter Summary ---
Author Organization [facility] [place] Address [address] [facility] Attn: Epic Prelude ADT [place] [address] Care Team Providers Care Pupil Personnel Worker Name Role Phone Rm Broderick MD Primary Care Provider [phone] Encounter Details Date Type Department Care Team (Late st Contact Info) Description 01/10/1999 Outpatient Historical Social History Tobacco Use Types Packs/Day Years Used Date Smoking Tobacco: Never Assessed Comments Unknown Sex and Gender Information Value Date Recorded Sex Assigned at Not on file Legal Sex Female 3:16 AM SOURCE INSPECTOR Gender Identity Not on file Sexual Orientation Not on file documented as of this encounter Plan of Treatment Upcoming Encounters Date Type Department Care Team (Late st Contact Info) Description 06/21/2025 11:45 AM CDT Office Visit [facility] Oncology and Hematology - [place] [address] [place] [address] [address] [place] [phone] Carlos Desouza MD [address] [facility] [address] [place] [address] documented as of this encounter Visit Diagnoses Not on filedocumented in this encounter Care Teams Pupil Personnel Worker Relationship Specialty Start Date End Date Rm Broderick MD [address] [facility] [address] [place] [phone] PCP - General Family Practice 02/15/25 documented as of this encounter
--- OUTSIDE RECORDS SUMMARY | 2025-05-25 08:39 | XMS_ITS | Clinical Summary ---
Author Organization [facility] Address [address] [place] [address] Care Team Providers Care Forest And Conservation Worker Name Role Phone Maggy Collins Primary Care Provider [phone] Allergies Active Allergy Reactions Criticality Noted Date [...] Description 03/28/2025 9:10 AM CDT Anesthesia Event [facility] [place] [address] Ana Paula Espinoza MD Jackson, Samantha Rae, FNP 03/28/2025 9:09 AM CDT - 03/28/2025 10:03 AM CDT Surgery [facility] [place] [address] Tomás Polanco MD CYSTOSCOPY AND BULKING AGENT 03/28/2025 7:15 AM CDT - 03/28/2025 11:05 AM CDT Hospital Encounter [facility] [place] [address] Tomás Polanco MD Discharge Disposition: Home or Self Care (Routine Discharge) 03/28/2025 Travel 03/25/2025 Prep for Procedure [facility] Pre-Admission Testing [place] [address] Tomás Polanco MD 03/24/[address] [facility] [place] [address] Tomás Polanco MD 03/21/2025 Travel from Last [...] this topic Medical Devices Implanted Type Area Solar Installer Pv Device Identifier Shelf Expiration Date Model / Serial / Lot Implant Urological Bulkamid Bulk Urethral Sterile Latex Free - [id number] Implanted:Qty: 1 on 03/28/2025 by Tomás Polanco MD at 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
--- OUTSIDE RECORDS SUMMARY | 2025-05-25 08:39 | XMS_ITS | Clinical Summary ---
Author Organization [facility] Michele Marcial Address [address] [place] [address] Care Team Providers Care Sales And Marketing Assistant Name Role Phone Rm Broderick MD Primary Care Provider [phone] Allergies Active Allergy Reactions Criticality Noted Date [...] tablet Take 100 mcg by mouth. Active crjmapcb35-gcqe -Lmfolate-algal 27 mg iron-1.13 mg-581.92 mg Capsule [...] Data STL ABSTRACTION Provider, Abstract 03/21/2025 Telephone [facility] Oncology and Hematology [facility] [address] [place] [address] Carlos Desouza MD Surgical Clearance 03/04/2025 [facility] Oncology and Hematology [facility] [address] [place] [address] Jenni Menezes MD 02/24/2025 [facility] Oncology and Hematology Abiodun Rodriguez [address] [facility] [address] [place] [phone] Samanta Gaxiola MD from Last 3 Months [...] on file Legal Sex Female 3:16 AM LEARNING DEVELOPMENT SPECIALIST Gender Identity Not on file Sexual Orientation [...] 167.6 cm (5' 6) 10/10/2023 11:24 AM LEARNING DEVELOPMENT SPECIALIST Body Mass Index 27.92 10/10/2023 11:24 AM LEARNING DEVELOPMENT SPECIALIST Plan of Treatment Upcoming Encounters Date Type Department Care Team (Late st Contact Info) Description 06/21/2025 11:45 AM CDT Office Visit [facility] Oncology and Hematology - [place] [address] [facility] [address] [place] [address] Carlos Desouza MD [address] [facility] [address] [place] [address] Health Maintenance Due Date Last [...] MEDICARE PART A AND B Care Teams Sales And Marketing Assistant Relationship Specialty Start Date End Date Rm Broderick MD [address] [facility] 120 [place] [phone] PCP - General Family Practice 02/15/25
[2025-05-25 08:47] LABS: Add Urine Microscopic? YES; Appearance Urine Clear (Clear); Glucose Urine UA Negative (Negative); Leukocyte Esterase Ur 2+ LEU/UL (Negative); Nitrate Urine Negative (Negative); Non Pathogenic Casts 0-2; Specific Grav Ur 1.021 (1.001-1.035)
[2025-05-25] MEDS: PIPERACILLIN/TAZOBACTAM SOD 3.375 GM in SODIUM CHLORIDE 0.9% IV 50 ML 100 ML IVPB ×2 (08:49→15:20)
[2025-05-25 08:50] LABS: INR 0.9; Prothrombin Time 12.4 Seconds (11.1-14.7)
[2025-05-25 08:52] LABS: Partial Thromboplastin Time 27.4 Seconds (22.3-36.8)
[2025-05-25] MEDS: LACTATED RINGERS 500 ML 999 ML IV CONT (08:53)
[2025-05-25 09:00] LABS: Alanine Aminotransferase 21 U/L (6-35); Albumin Level 3.9 g/dL (3.5-5.1); Alkaline Phosphatase 39 U/L (38-126); Anion Gap 5 mmol/L (4-12); Aspartate Amino Transferase 29 U/L (14-36); Bilirubin,Total 0.4 mg/dL (0.2-1.3); Blood Urea Nitrogen 20 mg/dL (7-17); CRP 4.9 mg/dL (<1.0); Calcium 9.5 mg/dL (8.4-10.2); Carbon Dioxide 26 mmol/L (22-30); Chloride 107 mmol/L (98-107); Estimated CRCL calculation 40 ml/min; Estimated Glomerular Filt Rate 48; Glucose 98 mg/dL (65-110); Potassium 3.9 mmol/L (3.4-5.0); Sodium 138 mmol/L (137-145); Total Protein 7.2 g/dL (6.3-8.2)
[2025-05-25 13:31] VITALS: BP 130/64; PULSE 84; RESP 18; O2SAT 98
[2025-05-25 15:12] VITALS: BP 136/66; PULSE 84; RESP 16; O2SAT 98
--- NOTE | 2025-05-25 16:05 | PC.NURSE ---
gave report to EMS at this time, denied any questions or concerns.
== END 2025-05-25 16:09 | disposition short-term general hospital (02) ==
PROVIDERS: Emergency Provider Emergency Medicine; PCP Family Medicine
DX: L02.511 Cutaneous abscess of right hand (principal); S61.451A Open bite of right hand, initial encounter; W55.01XA Bitten by cat, initial encounter; I34.0 Nonrheumatic mitral (valve) insufficiency; J45.909 Unspecified asthma, uncomplicated; J32.9 Chronic sinusitis, unspecified; E78.2 Mixed hyperlipidemia; E08.9 Diabetes mellitus due to underlying condition without complications; N32.81 Overactive bladder; K22.70 Barrett's esophagus without dysplasia; Z98.1 Arthrodesis status; Z96.643 Presence of artificial hip joint, bilateral; Z96.651 Presence of right artificial knee joint; G70.00 Myasthenia gravis without (acute) exacerbation; Z86.711 Personal history of pulmonary embolism; Z86.718 Personal history of other venous thrombosis and embolism; Z85.3 Personal history of malignant neoplasm of breast; Z92.3 Personal history of irradiation; Z90.49 Acquired absence of other specified parts of digestive tract; Z79.82 Long term (current) use of aspirin; Z79.01 Long term (current) use of anticoagulants; Z79.899 Other long term (current) drug therapy
CPT/HCPCS: 36415; 71046; 73201; 80053; 81001; 83605; 85025; 85610; 85730; 86140; 87040; 87086; 93005; 96365; 99285; J2543; J7120; Q9967

== ENCOUNTER 2025-06-17 09:40 | Outpatient (CLI) | payer MEDICARE, SELFPAY ==
--- OUTSIDE RECORDS SUMMARY | 2025-06-17 09:54 | XMS_ITS | Encounter Summary ---
Author Organization [facility] Address [address] [place] [address] Phone Care Team Providers Care Construction Driller Name Role Phone Iliana Gonzalez MD Primary Care Provider Rm Broderick MD Primary Care Provider Encounter Details Date Type Department Care Team (Late st Contact Info) Description 01/03/2018 Orders Only [facility] ProviderSharif MD [address] [place] [id number] Social History Tobacco Use Types Packs/Day Years Used Date Smoking Tobacco: Never Assessed Alcohol Use Standard Drinks/Week Comments No 0 (1 standard drink = 0.6 oz pur e alcohol) Comments Unknown Sex and Gender Information Value Date Recorded Sex Assigned at Not on file Legal Sex Female 1:48 AM HAUL CANE BRAKEMAN Gender Identity Not on file Sexual Orientation Not on file documented as of this encounter Plan of Treatment Not on file documented as of this encounter Procedures Procedure Name Priority Date/Time Associated Diagnosis Comments CYTOLOGY 01/03/2018 12:00 AM HAUL CANE BRAKEMAN documented in this encounter Results * CYTOLOGY (01/03/2018 12:00 AM HAUL CANE BRAKEMAN) Narrative 01/03/2018 12:00 AM HAUL CANE BRAKEMAN Ordered by an unspecified provider. Historical Provider LAB CYTOLOGY ORDERABLES F inal Result documented in this encounter Visit Diagnoses Not on filedocumented in this encounter Additional Health Concerns Infection Onset Date Last Indicated Resolved Time COVID: Suspected 09/27/2024 09/27/2024 09/27/2024 6:23 PM HAUL CANE BRAKEMAN documented as of this encounter Care Teams Construction Driller Relationship Specialty Start Date End Date Iliana Gonzalez MD [address] [place] [address] PCP - General 03/30/17 12/17/24 Rm Broderick MD [address] [place] [address] PCP - General Family Medicine 12/18/24 documented as of this encounter
--- OUTSIDE RECORDS SUMMARY | 2025-06-17 09:54 | XMS_ITS | Encounter Summary ---
Author Organization [facility] Address [address] [place] [address] Care Team Providers Care Utility Driver Name Role Phone Iliana Gonzalez MD Primary Care Provider Rm Broderick MD Primary Care Provider Reason for Visit * Reason Onset Date Comments Pre-Surgical Call 01/20/2022 Encounter Details Date Type Department Care Team (Late st Contact Info) Description 01/20/2022 Telephone [facility] [address] [facility] [address] [place] [address] Gurpreet Camp MD [address] [facility] [address] [place] [address] Pre-Surgical Call Social History Tobacco Use Types [...] on file Legal Sex Female 1:48 AM LARD TUB WASHER Gender Identity Not on file Sexual Orientation Not on file documented as of this encounter Plan of Treatment Not on file documented as of this encounter Goals Goal Patient Goal Type Associated Problems Recent Progress Patient-Stated? Author CCM Chronic Pain Care Plan Chronic Care Management On track(2020 1:08 PM LARD TUB WASHER) Joi Navarrete, RN Note: Problem: Chronic Pain [...] COVID: Suspected 09/27/2024 09/27/2024 09/27/2024 6:23 PM LARD TUB WASHER documented as of this encounter Care Teams Utility Driver Relationship Specialty Start Date End Date Iliana Gonzalez MD [address] [place] [address] PCP - General 03/30/17 12/17/24 Rm Broderick MD [address] [place] [address] PCP - General Family Medicine 12/18/24 documented as of this encounter
--- OUTSIDE RECORDS SUMMARY | 2025-06-17 09:54 | XMS_ITS | Encounter Summary ---
Author Organization Address [address] [facility] Attn: Epic Prelude ADT [place] [address] Care Team Providers Care Aircraft Design Engineer Name Role Phone Rm Broderick MD Primary Care Provider [phone] Encounter Details Date Type Department Care Team (Late st Contact Info) Description 01/10/1999 Outpatient Historical Social History Tobacco Use Types Packs/Day Years Used Date Smoking Tobacco: Never Assessed Comments Unknown Sex and Gender Information Value Date Recorded Sex Assigned at Not on file Legal Sex Female 3:16 AM CUSHION SEWER Gender Identity Not on file Sexual Orientation Not on file documented as of this encounter Plan of Treatment Upcoming Encounters Date Type Department Care Team (Late st Contact Info) Description 06/21/2025 11:45 AM CDT Office Visit [facility] Oncology [facility] Hematology - [place] [address] [place] [address] [address] [place] [id number] Carlos Desouza MD [address] [facility] [address] [place] [address] documented as of this encounter Visit Diagnoses Not on filedocumented in this encounter Care Teams Aircraft Design Engineer Relationship Specialty Start Date End Date Rm Broderick MD [address] [facility] [address] [place] [phone] PCP - General Family Practice 02/15/25 documented as of this encounter
--- OUTSIDE RECORDS SUMMARY | 2025-06-17 09:54 | XMS_ITS | Clinical Summary ---
Author Organization [facility] [employer] Address [address] [facility] [place] [address] Care Team Providers Care Research Physicist Name Role Phone Iliana Gonzalez MD Primary Care Provider + Source Comments [facility] [employer],non-owned Affiliates and Associated Physician Practices is amultiple site organization consisting of ambulatory clinics and hospital sitesin [place], [place], [place] and [place]. This disclosure is being madepursuant to the Care Everywhere program and may not contain all information available regarding this patient. Last updated 18.[facility] [employer] Allergies Active Allergy Reactions Criticality Noted Date [...] on file Legal Sex Female 5:25 AM TELETYPESETTER MONITOR Gender Identity Not on file Sexual Orientation Not on file Last Filed Vital Signs Vital Sign Reading Time Taken Comments Blood Pressure 120/78 10/30/2018 3:38 PM TELETYPESETTER MONITOR Pulse - - Temperature 36.7 C (98 F) 10/30/2018 3:38 PM TELETYPESETTER MONITOR Respiratory Rate 16 10/30/2018 3:38 PM TELETYPESETTER MONITOR Oxygen Saturation 97% 10/30/2018 3:38 PM TELETYPESETTER MONITOR Inhaled Oxygen Concentration - - Weight 72.6 kg (160 lb) 10/30/2018 3:38 PM TELETYPESETTER MONITOR Height 171.5 cm (5' 7.5) 10/30/2018 3:38 PM TELETYPESETTER MONITOR Body Mass Index 24.69 10/30/2018 3:38 PM TELETYPESETTER MONITOR Plan of Treatment Health Maintenance Due Date [...] fective for All Dates) Name:Izaiah Neha Member ID:[id number] Relation to Subscriber:Self Name:KelleyrosalvaEla cheungne Subscriber ID:[id number] Payer ID:Not on file Group ID:Not on file Type:Medicare Address: [place] [phone] MEDICARE SUPPLEMENT PAYOR GENERIC * Guarantor: PHIL BLISS Account Type Relation to Patient Date of Phone Billing Address Personal/Family [address] [place] [phone] MEDICARE MEDICARE SUPPLEMENT PAYOR GENERIC * Guarantor: PHIL BLISS Account Type Relation to Patient Date of Phone Billing Address Personal/Family [address] [place] [address] MEDICARE MEDICARE SUPPLEMENT PAYOR GENERIC * Guarantor: PHIL BLISS Account Type Relation to Patient Date of Phone Billing Address Personal/Family [address] [place] [phone] MEDICARE Member Subscriber Plan / Payer (Ef fective for All Dates) Name:Neha Bliss Member ID:[id number] Relation to Subscriber:Self Name:Neha Bliss Subscriber ID:[id number] Payer ID:Not on file Group ID:Not on file Type:Medicare Address: [place] [id number] MEDICARE SUPPLEMENT PAYOR GENERIC Care Teams Research Physicist Relationship Specialty Start Date End Date Iliana Gonzalez MD [address] [place] [address] PCP - General 02/25/21
--- OUTSIDE RECORDS SUMMARY | 2025-06-17 09:54 | XMS_ITS | Clinical Summary ---
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 Name Role Phone Rm Broderick MD Primary [...] a day as needed for pain Active [id number]- Lmfolate-algal 27 mg iron-1.13 mg-581.92 mg capsule Take 1 tablet by mouth daily Active albuterol HFA (PROVENTIL HFA,VENTOLIN HFA,PROAIR HFA) 90 mcg/actuation inhaler Inhale 2 puffs every 6 (six) hours as needed Active levothyroxine (SYNTHROID) 100 mcg tablet Take 1 tablet (100 mcg total) by mouth brazer repair and salvage before breakfast Active fluticasone-umec lidin-vilanter (Trelegy Ellipta) [...] AT BEDTIME NEEDED FOR INSOMNIA 4 Active ibuprofen (ADVIL,MOTRIN) 600 mg tabletIndication s:Pain Take 1 tablet (600 mg total) by mouth every 6 (six) hours as needed for pain 20 tablet 5 Active amoxicillin-clav ulanate (AUGMENTIN) 875-125 mg per tablet Take 1 tablet by mouth 2 (two) times a day for 11 days Take until 06/10 per the ID team's recommendation s. 23 tablet 5 06/10/20 25 doxycycline (VIBRAMYCIN) 100 mg capsule Take 1 tablet/capsule (100 mg total) by mouth 2 (two) times a day for 11 days Take until 06/10 per the ID team's recommendation s. 23 tablet/capsu le 5 06/10/20 25 Active Problems Problem Noted Date Diagnosed Date Chest pressure 05/28/2025 Assessment & Plan (05/28/2025 4:22 PM CDT): -History and symptoms likely suggest a non-cardiac etiology. She does not have prior stable angina, has a history of negative stress and TTE in last 5 years, and pressure with rest with resolution on coughing is unlikely to be acute coronary disease. Her EKG is reassuring without ischemia. Her slightly elevated and downtrending hstrop may be reflective of the stress of infection/surgery. She has had slightly elevated troponin in the past during ED visits. Recommend: - No need to repeat EKG or troponins unless symptoms recur - Follow up with PCP. A conservative approach with shared decision-making on whether to pursue and outpatient stress test would be reasonable simply given her age - Continue apixaban Elevated troponin 05/28/2025 Assessment & Plan (05/28/2025 4:22 PM CDT): -History and symptoms likely suggest a non-cardiac etiology. She does not have prior stable angina, has a history of negative stress and TTE in last 5 years, and pressure with rest with resolution on coughing is unlikely to be acute coronary disease. Her EKG is reassuring without ischemia. Her slightly elevated and downtrending hstrop may be reflective of the stress of infection/surgery. She has had slightly elevated troponin in the past during ED visits. Recommend: - No need to repeat EKG or troponins unless symptoms recur - Follow up with PCP. 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 Previously received PO azithromycin (05/23-05/25) and then IM ceftriaxone (05/24/2025). Taken to OR 05/27 for Right dorsal hand and wrist I&D - noted a small puncture wound distal to the joint line, slightly cloudy fluid identified, no purulence; no evidence of joint violation. Right hand tissue cx 05/27: no growth Recommendations - Discontinue vancomycin and Unasyn - Start PO doxycycline 100mg BID and PO Augmentin 875-125mg BID - Plan on treating with 14 days of antibiotics for infectious tenosynovitis without septic arthritis from date of surgery (05/27-06/09/2025) - Discussed potential adverse effects from doxycycline including photosensitivity and it should be taken separate from multivitamins and mineral supplements; patient to contact medical provider if she develops profuse watery diarrhea on antibiotics. - Follow-up with plastic surgery clinic. No scheduled ID clinic follow-up is necessary. If concern for residual infection remains in the outpatient setting, please refer to ID clinic at that time. 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 Previously received PO azithromycin (05/23-05/25) and then IM ceftriaxone (05/24/2025). Taken to OR 7/21 for Right dorsal hand and wrist I&D - noted a small puncture wound distal to the joint line, slightly cloudy fluid identified, no purulence; no evidence of joint violation. Right hand tissue cx 05/27: NGTD Vanc trough 6 (on 05/28) while on vancomycin 1250mg Q24 hours Recommendations - Increase vancomycin to 1g Q12 hours, check a trough before the 4th dose (target 10-20) - Continue IV Unasyn 3g Q6 hours for broad coverage of Pasteurella multocida, Staph, Strep, and anaerobes that could be seen in a polymicrobial cat bite infection - Monitor twice weekly CMP and CBC with diff while on vancomycin and Unasyn - Further recs pending culture results - anticipate transition to PO antibiotics at discharge (if cultures remain negative by 05/31, anticipate doxycycline and Augmentin). Plan on treating with around 10-14 days of antibiotics for infectious tenosynovitis without septic arthritis. Assessment & Plan (05/28/2025 4:22 PM CDT): - Defer to PRS and ID, in agreement with plan Assessment & Plan (05/26/2025 1:27 PM CDT): Recent cat bite to right hand resulting in infectious tenosynovitis + associated soft tissue infection in an immunosuppressed patient. Previously received PO azithromycin (05/23-05/25) and then IM ceftriaxone (05/24/2025). - Continue empiric vancomycin 1250mg IV q24 hours - Check vancomycin trough prior to 4th dose (target 10-20) - D/C IV cefepime + IV metronidazole - Start Unasyn 3 grams IV q6 hours for broad coverage of Pasteurella multocida, Staph, Strep, and anaerobes that could be seen in a polymicrobial cat bite infection - Await OR I&D right hand 05/27/2025 - please send operative cultures to help direct antibiotic therapy - Final duration and route of antibiotic therapy to be determined based on operative findings - 05/25/2025 baseline LFTs within normal limits - Will continue to follow Diagnosis unknown 05/25/2025 Chest pressure 12/18/2024 History of pulmonary embolism 09/09/2023 Assessment & Plan (05/28/2025 4:22 PM CDT): - Continue apixaban Preoperative cardiovascular examination 02/19/20 23 Symptomatic bradycardia 02/18/2023 PSVT (paroxysmal supraventricular tachycardia) 0 04/09/2022 Asthma 04/09/2022 Hypothyroidism (acquired) 04/09/2022 Chronic fatigue 04/09/2022 Left atrial enlargement 04/09/2022 Nonrheumatic mitral (valve) insufficiency 2021 Pulmonary hypertension 04/09/2022 Shortness of breath 04/09/2022 Encounters Date Type Department Care Team Description 06/11/2025 4:15 PM CDT Office Visit [facility] Surgery [address] [facility] 6th [place] [address] Bella Robles MD PhD Infection of right hand due to bite, initial encounter (Primary Dx) 06/06/2025 Telephone [facility] Surgery [address] [facility] 6th [place] [id number] Della Rodriguez CMA 05/27/2025 9:40 AM CDT - 05/27/2025 11:45 AM CDT Surgery [facility] Operating Room [address] [place] [address] Bella Robles MD PhD INCISION AND DRAINAGE - UPPER EXTREMITY 05/27/2025 9:35 AM CDT Anesthesia Event [facility] Operating Room [address] [place] [address] Rigo Villegas MD Tyler, Sydney Suzanne, MD 05/27/2025 Documentation [facility] Scheduling [address] [place] [address] Sherry Damon IP to OP 05/25/2025 4:45 PM CDT - 05/30/2025 12:03 PM CDT Hospital Encounter [address] [address] Guilherme Tinoco MD Badran, Saifeddin Moh'D Ahmad, MD Liang, Louis Solis MD Diagnosis unknown (Primary Dx); Hand abscess; Infection of right hand due to bite, initial encounter Discharge Disposition: Discharge to home or self care 04/26/2025 Telephone [facility] [address] [place] [address] [place] [phone] Amber Gaspar NP 04/26/2025 Telephone [facility] [address] [place] [address] [address] [place] [address] Amber Gaspar NP 04/25/2025 9:16 AM CDT - 04/25/2025 11:59 PM CDT Hospital Encounter [facility] [address] [address] Chronic neck pain; Foraminal stenosis of cervical [...] 11:59 PM CDT Hospital Encounter [facility] [address] [address] Chronic bilateral thoracic back pain; DDD (degenerative disc disease), thoracic, multilevel; History of thoracic spinal fusion, T10-T12 (1992); Muscle weakness of extremities, upper and lower Discharge Disposition: Discharge to home or self care 03/25/2025 Telephone [facility] [address] [place] [address] Wilmar Kraus MD from Last 3 Months Surgical History Surgery [...] often do you have a drink containing alcohol? Never 05/27/2025 Q2: How many drinks containi ng alcohol do you have on a typical day when you are drinking? Patient does not drink Q3: How often do you have si x or more drinks on one occasion? Never 05/27/2025 Personal Safety Answer Date Recorded Have you ever been in or are you currently in a harmful physical or emotional relationship or is someone making you feel afraid or unsafe? 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 Gender Identity Not on file Sexual Orientation Not on file Obstetrics History Last Filed Vital Signs Vital Sign Reading Time Taken Comments Blood Pressure 118/56 05/30/2025 7:33 AM CDT Pulse 72 05/30/2025 7:33 AM CDT Temperature 36.7 C (98.1 F) 05/30/2025 7:33 AM CDT Respiratory Rate 16 05/30/2025 4:46 AM CDT Oxygen Saturation 95% 05/30/2025 7:33 AM CDT Inhaled Oxygen Concentration - - Weight 87.3 kg (192 lb 6.4 oz) 05/29/2025 10:43 AM CDT Height 170.2 cm (5' 7.01) 05/25/2025 10:45 PM C DT Body Mass Index 30.13 05/25/2025 10:45 PM CDT Plan of Treatment Health Maintenance Due Date Last Done Comments Depression Screening 1940 Osteoporosis Screening-Bone Density Scan 1941 DTaP/Tdap/Td Vaccine (1 - Tdap) 1952 Hepatitis B Screening 1959 Pneumococcal vaccine 65+ (1 of 2 - PCV) 1960 Zoster Vaccine (1 of 2) 1960 Well Visit 65+ 2006 Covid-19 Vaccine (2 - Pfizer risk series) 11/11/2021 10/21/2021 Influenza Vaccine (#1) 2025 Fall Risk Assessment 05/30/2026 05/30/2025 Goals Goal Patient Goal Type Associated Problems Recent Progress Patient-Stated? Author CCM Chronic Pain Care Plan Chronic Care Management On track(2020 1:08 PM MARKETING SUPPORT SPECIALIST) Joi Navarrete, RN Note: Problem: Chronic Pain Goals: 1. Minimize further functional decline 2. Maximize quality of life 3. Control pain Strategies: - Activity/exercise program recommendation - Conservative stepwise pain medicine strategy with multi-disciplinary approach - Recommend healthy lifestyle strategies and compensatory methods as needed Medical Devices Implanted Type Area Sap Integration Architect Device Identifier Shelf Expiration Date Model / Serial / Lot Rt Knee Hip B/L Hips Hip Procedures Procedure Name Priority Date/Time Associated Diagnosis Comments EGFR Routine 05/29/2025 8:04 PM CDT CBC WITHOUT DIFFERENTIAL Routine 05/29/2025 8:04 PM CDT BASIC METABOLIC PANEL Routine 05/29/2025 8:04 PM CDT VANCOMYCIN LEVEL TROUGH Routine 05/28/2025 9:05 PM CDT EGFR Routine 05/28/2025 9:05 PM CDT CBC WITHOUT DIFFERENTIAL Routine 05/28/2025 9:05 PM CDT BASIC METABOLIC PANEL Routine 05/28/2025 9:05 PM CDT CRITICAL RESULT CALLBACK CARDIO CHEM Timed 05/28/2025 2:18 PM CDT TROPONIN I HIGH-SENSITIVITY 2-HOUR Timed 05/28/2025 2:18 PM CDT XR CHEST PA LATERAL 2 VIEWS ED Urgent/IP Urgent 05/28/2025 1:13 PM CDT ECG 12-LEAD STAT 05/28/2025 12:36 PM CDT EGFR STAT 05/28/2025 12:20 PM CDT TROPONIN I HIGH-SENSITIVITY SERIES (BASELINE, 2HR, 4HR, 6HR) Routine 05/28/2025 12:20 PM CDT BASIC METABOLIC PANEL STAT 05/28/2025 12:20 PM CDT CBC WITHOUT DIFFERENTIAL STAT 05/28/2025 12:20 PM CDT EGFR Routine 05/27/2025 11:58 PM CDT CBC WITHOUT DIFFERENTIAL Routine 05/27/2025 11:58 PM CDT BASIC METABOLIC PANEL Routine 05/27/2025 11:58 PM CDT AEROBIC AND ANAEROBIC CULTURE AND GRAM STAIN Routine 05/27/2025 10:16 AM CDT MYCOBACTERIOLOGY AFB CULTURE AND ACID-FAST STAIN Routine 05/27/2025 10:16 AM CDT MYCOLOGY (FUNGAL) CULTURE AND STAIN Routine 05/27/2025 10:16 AM CDT AEROBIC AND ANAEROBIC CULTURE AND GRAM STAIN Routine 05/27/2025 10:15 AM CDT MYCOBACTERIOLOGY AFB CULTURE AND ACID-FAST STAIN Routine 05/27/2025 10:15 AM CDT MYCOLOGY (FUNGAL) CULTURE AND STAIN Routine 05/27/2025 10:15 AM CDT ANESTHESIA INTUBATION Routine 05/27/2025 9:56 AM CDT INCISION AND DRAINAGE - UPPER EXTREMITY 05/27/2025 9:38 AM CDT Infection of right hand due to bite, initial encounter Case Notes Case changed to [email or web address] robles MST EGFR Routine 05/26/2025 8:20 PM CDT CBC WITHOUT DIFFERENTIAL Routine 05/26/2025 8:20 PM CDT BASIC METABOLIC PANEL Routine 05/26/2025 8:[address] OUTSIDE CONSULT Routine 6:56 PM CDT Diagnosis unknown B CHECK SAMPLE STAT 05/25/2025 5:49 PM CDT EGFR STAT 05/25/2025 5:10 PM CDT DIFFERENTIAL AUTO STAT 05/25/2025 5:10 PM CDT TYPE AND SCREEN STAT 05/25/2025 5:10 PM CDT APTT STAT 05/25/2025 5:10 PM CDT PROTIME-INR STAT 05/25/2025 5:10 PM CDT COMPREHENSIVE METABOLIC PANEL STAT 05/25/2025 5:10 PM CDT CBC WITH AUTO DIFFERENTIAL STAT 05/25/2025 5:10 PM CDT MRI CERVICAL SPINE W WO CONTRAST Schedule [...] Muscle weakness of extremities, upper and lower from Last 3 Months Results * (ABNORMAL) eGFR (05/29/2025 8:04 PM CDT) [facility] eGFR 55(L) >=60 mL/min/1. 73 m2 Comment: Interpretive Data [...] Current interpretive data was last reviewed 2021. Blood 05/29/2025 8:04 PM CDT 05/29/2025 8:58 PM CDT Leo Oliveros MD LAB BLOOD ORDERA BLES Final Result [facility] Department [place] [address] * (ABNORMAL) CBC without differential (05/29/2025 8:04 PM CDT) [facility] WBC 6.67 3.80 - 9.90 K/cumm Hgb 9.8(L) 11.9 - 15.5 g/dL [facility] Hct 31.5(L) 35.6 - 45.5 % [facility] Plt 269 150 - 400 K/cumm [facility] MPV 10.6 9.1 - 12.3 fL [facility] RBC 3.30(L) 3.90 - 5.20 M/cumm [facility] MCV 95.5 81.3 - 96.4 fL [facility] MCH 29.7 27.1 - 33.3 pg [facility] MCHC 31.1(L) 32.3 - 35.7 g/dL [facility] RDW CV 14.6 11.1 - 14.9 % [facility] RDW SD 52.1(H) 35.7 - 48.1 fL [facility] NRBC abs 0.00 0.00 - 0.01 K/cumm [facility] Blood 05/29/2025 8:04 PM CDT 05/29/2025 8:52 PM CDT us Leo Oliveros MD LAB BLOOD ORDERA BLES Final Result [facility] Department [place] [address] * Basic metabolic panel (05/29/2025 8:04 PM CDT) Sodium 141 135 - 145 mmol/L Potassium, pl 4.3 3.3 - 4.9 mmol/L [facility] Comment:Hemolyzed; Potassium value may be falsely elevated by as much as 0.3-0.5 mmol/L. Suggest redraw and reanalysis. Chloride 107 97 - 110 mmol/L [facility] CO2 25 22 - 32 mmol/L [facility] Anion gap 9 2 - 15 mmol/L [facility] BUN 10 6 - 25 mg/dL [facility] Creatinine 1.01 0.60 - 1.10 mg/dL [facility] Glucose 115 70 - 199 mg/dL [facility] Comment: Interpretive Data Fasting glucose >/= 126 [...] Current interpretive data was last revised 2022. Calcium 9.3 8.5 - 10.3 mg/dL [facility] Blood 05/29/2025 8:04 PM CDT 05/29/2025 8:58 PM CDT Leo Oliveros MD LAB BLOOD ORDERA BLES Final Result Performing Organization Address City/[facility] Co de Phone Number [facility] Department [place] [address] * eGFR (05/28/2025 9:05 PM CDT) eGFR 78 >=60 mL/min/1. 73 m2 Comment: Interpretive Data [...] of Race in Diagnosing Kidney Disease, JASN 202). The CKD-EPI equation should not be used for patients with unstable renal function and has not been validated in children and those over 70. Current interpretive data was last reviewed 2021. Blood 05/28/2025 9:05 PM CDT 05/28/2025 9:37 PM CDT Leo Oliveros MD LAB BLOOD ORDERA BLES Final Result Performing Organization Address City/[facility]/ZIP Co de Phone Number [facility] Department [place] [address] * (ABNORMAL) CBC without differential (05/28/2025 9:05 PM CDT) WBC 6.64 3.80 - 9.90 K/cumm Hgb 9.4(L) 11.9 - 15.5 g/dL [facility] Hct 30.2(L) 35.6 - 45.5 % [facility] Plt 266 150 - 400 K/cumm [facility] MPV 11.0 9.1 - 12.3 fL [facility] RBC 3.18(L) 3.90 - 5.20 M/cumm [facility] MCV 95.0 81.3 - 96.4 fL [facility] MCH 29.6 27.1 - 33.3 pg [facility] MCHC 31.1(L) 32.3 - 35.7 g/dL [facility] RDW CV 14.6 11.1 - 14.9 % [facility] RDW SD 51.4(H) 35.7 - 48.1 fL [facility] NRBC abs 0.00 0.00 - 0.01 K/cumm [facility] Blood 05/28/2025 9:05 PM CDT 05/28/2025 9:37 PM CDT Leo Oliveros MD LAB BLOOD ORDERA BLES Final Result Performing Organization Address City/[facility]/ZIP Co de Phone Number [facility] Department [place] [address] * (ABNORMAL) Vancomycin level trough (05/28/2025 9:05 PM CDT) Pathologist [facility] Vancomycin trough 6.0(L) 10.0 - 20.0 mcg/mL Blood 05/28/2025 9:05 PM CDT 05/28/2025 9:37 PM CDT Leo Oliveros MD LAB BLOOD ORDERA BLES Final Result [facility] Department [place] [address] * Basic metabolic panel (05/28/2025 9:05 PM CDT) Pathologist [facility] Sodium 139 135 - 145 mmol/L Potassium, pl 4.0 3.3 - 4.9 mmol/L [facility] Chloride 105 97 - 110 mmol/L [facility] CO2 26 22 - 32 mmol/L [facility] Anion gap 8 2 - 15 mmol/L [facility] BUN 8 6 - 25 mg/dL [facility] Creatinine 0.76 0.60 - 1.10 mg/dL [facility] Glucose 127 70 - 199 mg/dL [facility] Comment: Interpretive Data Fasting glucose >/= 126 [...] Current interpretive data was last revised 2022. Calcium 9.3 8.5 - 10.3 mg/dL [facility] Blood 05/28/2025 9:05 PM CDT 05/28/2025 9:37 PM CDT Leo Oliveros MD LAB BLOOD ORDERA BLES Final Result [facility] Department [place] [address] * (ABNORMAL) Troponin I high-sensitivity 2-hour (05/28/2025 2:18 PM CDT) Pathologist [facility] Trop I hs 45(H) <=17 ng/L Comment: Interpretive Data For further hscTnI resources including the diagnostic algorithm and an aid in interpretation, copy and paste this link: [email or web address] Current Interpretive Data last revised 2020. Trop I hs delta -12(C) ng/L [facility] Trop I hs interp Significa nt(C) [facility] Blood 05/28/2025 2:18 PM CDT 05/28/2025 2:42 PM CDT Karen Tolbert [facility] LAB BLOOD ORDERABLES Fin al Result Performing Organization Address [facility] de Phone Number [facility] Department [place] [address] * Critical result callback Cardio chemistry (05/28/2025 2:18 PM CDT) Date Notified [id number] Time Notified 1521 [facility] Test name Trop I hs 2hr delta [facility] Called/Read Back Sara Boss [facility] Credentials RN [facility] Called By PD [facility] Blood 05/28/2025 2:18 PM CDT 05/28/2025 2:42 PM CDT [facility] Didi [facility] LAB BLOOD ORDERABLES Fin al Result Performing Organization Address [facility] de Phone Number [facility] Department [place] [address] * XR Chest PA Lateral 2 Views (05/28/2025 1:13 PM CDT) Anatomical Region Laterality Modality Body, Chest N/A Computed Radiogr aphy 05/28/2025 2:09 PM CDT Impressions 05/28/2025 2:24 PM CDT The current study is compared with the prior radiograph dated 12/27/2024 Thoracic spine surgical hardware noted. Bibasilar opacities favor atelectasis. Trace bilateral pleural effusions. No pneumothorax. Heart and mediastinum unchanged from previous. This report was reviewed with fellow Osmin Stone MD Dictated by: Ismael Gilmore M.D. The radiology attending physician has personally reviewed this study, and had reviewed and/or edited this written report and agrees with it. Electronically signed by: Rebecca Bishop M.D. Narrative 05/28/2025 2:24 PM CDT EXAMINATION: 2 view chest radiograph Procedure Note Rebecca Bishop MD - 05/28/2025 EXAMINATION: 2 view chest radiograph IMPRESSION: The current study is compared with the prior radiograph dated 12/27/2024 Thoracic spine surgical hardware noted. Bibasilar opacities favor atelectasis. Trace bilateral pleural effusions. No pneumothorax. Heart and mediastinum unchanged from previous. This report was reviewed with fellow Osmin Stone MD Dictated by: Ismael Gilmore M.D. The radiology attending physician has personally reviewed this study, and had reviewed and/or edited this written report and agrees with it. Electronically signed by: Rebecca Bishop M.D. Karen Did[facility] RFID SPECIALIST IMG XR PROCEDURES Final Result * ECG 12 lead (05/28/2025 12:36 PM CDT) Ventricular Rate EKG/Min 86 BPM [facility] Atrial Rate 86 BPM [facility] [place]-Interval (MSEC) 124 ms [facility] QRS-Interval (MSEC) 92 ms [facility] QT-Interval (MSEC) 374 ms [facility] QTc 447 ms [facility] P Edison 58 degrees [facility] R Edison -7 degrees [facility] T Edison 4 degrees [facility] Diagnosis Normal sinus rhythm Incomplete right bundle branch block Minimal voltage criteria for LVH, may be normal variant ( R in aVL ) Borderline ECG When compared with ECG of 27-DEC-2024 11:01, Premature ventricular complexes are no longer Present Nonspecific T wave abnormality now evident in Anterior leads Confirmed by EDINSON RODRIGUEZ M.D ([id number]) on 05/28/2025 8:33:40 PM [facility] 05/28/2025 12:3 6 PM CDT 05/28/2025 8:33 PM CDT Karen Patel RFID SPECIALIST ECG ORDERABLES Final Re sult Performing Organization Address City/[facility]/ZIP Co de Phone Number [facility] * (ABNORMAL) Troponin I high-sensitivity series (baseline, 2hr, 4hr, 6hr) (05/28/2025 12:20 PM CDT) Trop I hs 57(H) <=17 ng/L Comment: Interpretive Data For further hscTnI resources including the diagnostic algorithm and an aid in interpretation, copy and paste this link: [email or web address].testcatalog.org/show/[email or web address] Current Interpretive Data last revised 2020. Blood 05/28/2025 12:2 0 PM CDT 05/28/2025 1:00 PM CDT Karen Patel RFID SPECIALIST LAB BLOOD ORDERABLES Fin al Result Performing Organization Address City/[facility] Co de Phone Number [facility] Department [place] [address] * eGFR (05/28/2025 12:20 PM CDT) eGFR 72 >=60 mL/min/1. 73 m2 Comment: Interpretive Data [...] of Race in Diagnosing Kidney Disease, JASN 202). The CKD-EPI equation should not be used for patients with unstable renal function and has not been validated in children and those over 70. Current interpretive data was last reviewed 2021. Blood 05/28/2025 12:2 0 PM CDT 05/28/2025 12:41 PM CDT Karen Tolbert [facility] LAB BLOOD ORDERABLES Fin al Result Performing Organization Address [facility] Co de Phone Number [facility] Department [place] [address] * (ABNORMAL) CBC without differential (05/28/2025 12:20 PM CDT) [facility] WBC 9.79 3.80 - 9.90 K/cumm Hgb 9.8(L) 11.9 - 15.5 g/dL [facility] Hct 31.4(L) 35.6 - 45.5 % [facility] Plt 232 150 - 400 K/cumm [facility] MPV 11.6 9.1 - 12.3 fL [facility] RBC 3.27(L) 3.90 - 5.20 M/cumm [facility] MCV 96.0 81.3 - 96.4 fL [facility] MCH 30.0 27.1 - 33.3 pg [facility] MCHC 31.2(L) 32.3 - 35.7 g/dL [facility] RDW CV 14.7 11.1 - 14.9 % [facility] RDW SD 51.5(H) 35.7 - 48.1 fL [facility] NRBC abs 0.00 0.00 - 0.01 K/cumm [facility] Blood 05/28/2025 12:2 0 PM CDT 05/28/2025 12:41 PM CDT Karen Tolbert [facility] LAB BLOOD ORDERABLES Fin al Result Performing Organization Address City/[facility]/ZIP Co de Phone Number [facility] Department [place] [address] * Basic metabolic panel (05/28/2025 12:20 PM CDT) Pathologist [facility] Sodium 142 135 - 145 mmol/L Potassium, pl 4.0 3.3 - 4.9 mmol/L [facility] Comment:Hemolyzed; Potassium value may be falsely elevated by as much as 0.3-0.5 mmol/L. Suggest redraw and reanalysis. Chloride 107 97 - 110 mmol/L [facility] CO2 24 22 - 32 mmol/L [facility] Anion gap 11 2 - 15 mmol/L [facility] BUN 10 6 - 25 mg/dL [facility] Creatinine 0.81 0.60 - 1.10 mg/dL [facility] Glucose 110 70 - 199 mg/dL [facility] Comment: Interpretive Data Fasting glucose >/= 126 [...] Current interpretive data was last revised 2022. Calcium 9.2 8.5 - 10.3 mg/dL [facility] Blood 05/28/2025 12:2 0 PM CDT 05/28/2025 12:41 PM CDT Karen Patel RFID SPECIALIST LAB BLOOD ORDERABLES [facility] al Result [facility] Department [place] [address] * eGFR (05/27/2025 11:58 PM CDT) [facility] eGFR 63 >=60 mL/min/1. 73 m2 Comment: Interpretive Data [...] of Race in Diagnosing Kidney Disease, JASN 202). The CKD-EPI equation should not be used for patients with unstable renal function and has not been validated in children and those over 70. Current interpretive data was last reviewed 2021. Blood 05/27/2025 11:5 8 PM CDT 05/28/2025 12:45 AM CDT Leo Oliveros MD LAB BLOOD ORDERA BLES Final Result [facility] Department [place] [address] * (ABNORMAL) CBC without differential (05/27/2025 11:58 PM CDT) WBC 6.78 3.80 - 9.90 K/cumm Hgb 8.9(L) 11.9 - 15.5 g/dL [facility] Hct 29.2(L) 35.6 - 45.5 % [facility] Plt 186 150 - 400 K/cumm [facility] MPV 11.8 9.1 - 12.3 fL [facility] RBC 3.01(L) 3.90 - 5.20 M/cumm [facility] MCV 97.0(H) 81.3 - 96.4 fL [facility] MCH 29.6 27.1 - 33.3 pg [facility] MCHC 30.5(L) 32.3 - 35.7 g/dL [facility] RDW CV 14.7 11.1 - 14.9 % [facility] RDW SD 52.3(H) 35.7 - 48.1 fL [facility] NRBC abs 0.00 0.00 - 0.01 K/cumm [facility] Blood 05/27/2025 11:5 8 PM CDT 05/28/2025 12:46 AM CDT Leo Oliveros MD LAB BLOOD ORDERA BLES Final Result Performing Organization Address City/[facility]/ZIP Co de Phone Number [facility] Department [place] [address] * Basic metabolic panel (05/27/2025 11:58 PM CDT) [facility] Sodium 141 135 - 145 mmol/L Potassium, pl 3.6 3.3 - 4.9 mmol/L [facility] Chloride 108 97 - 110 mmol/L [facility] CO2 27 22 - 32 mmol/L [facility] Anion gap 6 2 - 15 mmol/L [facility] BUN 11 6 - 25 mg/dL [facility] Creatinine 0.90 0.60 - 1.10 mg/dL [facility] Glucose 81 70 - 199 mg/dL [facility] Comment: Interpretive Data Fasting glucose >/= 126 [...] Current interpretive data was last revised 2022. Calcium 9.1 8.5 - 10.3 mg/dL [facility] Blood 05/27/2025 11:5 8 PM CDT 05/28/2025 12:45 AM CDT Leo Oliveros MD LAB BLOOD ORDERA BLES Final Result Performing Organization Address [facility]/ZIP Co de Phone Number [facility] Department [place] [address] * Aerobic and anaerobic culture and gram stain Wound Hand, right (05/27/2025 10:16 AM CDT) Direct Specimen Exam Stain: Rare polymorphonuclear leukocytes seen. No organisms seen. Report Final Report: No [facility] Wound (Hand, right) 05/27/2025 10:16 AM CDT 05/27/2025 11:44 AM CDT Narrative [facility] - 05/30/2025 8:02 AM CDT Right dorsal hand Specimen received on an ESwab. Testing performed by [facility] Microbiology [facility] ([phone]) Specimens submitted from normally sterile body sites will have all bacterial morphotypes identified. Specimens that contain grossly mixed pete and/or are from body sites that are not normally sterile will be examined for Staphylococcus aureus, Pseudomonas aeruginosa, beta-hemolytic strep, vancomycin-resistant Enterococcus, Bacteroides, Parabacteroides, Clostridium perfringens and fungus. If any of these are isolated, the organism will be reported. Current interpretive data was last revised on 2020. Leo Oliveros MD LAB MICROBIOLOGY - GENERAL ORDERABLES Final Result [facility] Department [place] [address] * Aerobic and anaerobic culture and gram stain Wound Hand, right (05/27/2025 10:15 AM CDT) Direct Specimen Exam Stain: Few polymorphonuclear leukocytes seen. No organisms seen. Report Final Report: No growth [facility] Wound (Hand, right) 05/27/2025 10:15 AM CDT 05/27/2025 11:47 AM CDT Narrative [facility] - 05/30/2025 8:02 AM CDT Right hand wound Specimen received on an ESwab. Testing performed by [facility] ([phone]) Specimens submitted from normally sterile body sites will have all bacterial morphotypes identified. Specimens that contain grossly mixed pete and/or are from body sites that are not normally sterile will be examined for Staphylococcus aureus, Pseudomonas aeruginosa, beta-hemolytic strep, vancomycin-resistant Enterococcus, Bacteroides, Parabacteroides, Clostridium perfringens and fungus. If any of these are isolated, the organism will be reported. Current interpretive data was last revised on 2020. Leo Oliveros MD LAB MICROBIOLOGY - GENERAL ORDERABLES Final Result [facility] Department [place] [address] * Airway (05/27/2025 9:56 AM CDT) Narrative Marga Solorio MD - 05/27/2025 9:56 AM CDT Marga Solorio MD 05/27/2025 9:57 AM Airway Patient location: OR Urgency: elective Date/time: 05/27/2025 9:50 AM Indications for airway management: anesthesia Difficult airway: no Staff: Supervising provider: Rigo Villegas MD Placed by: Resident: Marga Solorio MD Emergent airway documentation: Risks and benefits discussed: yes Consent obtained: yes Consent given by: patient Airway prep: Preoxygenated: yes Patient position: sniffing Mask difficulty assessment: 1 - vent by mask Spontaneous ventilation during airway: absent Sedation level during airway: GA Final airway details: Final airway type: supraglottic airway Final supraglottic airway: IGel SGA size: 4 Number of attempts: 1 Ventilation between attempts: none Planned trial extubation: yes Marga Solorio MD ANESTHESIA ORDERABLES Fi nal Result * eGFR (05/26/2025 8:20 PM CDT) eGFR 63 >=60 mL/min/1. 73 m2 Comment: Interpretive Data [...] of Race in Diagnosing Kidney Disease, JASN 202). The CKD-EPI equation should not be used for patients with unstable renal function and has not been validated in children and those over 70. Current interpretive data was last reviewed 2021. Blood 05/26/2025 8:20 PM CDT 05/26/2025 8:35 PM CDT us Leo Oliveros MD LAB BLOOD ORDERA BLES Final Result [facility] Department [place] [address] * (ABNORMAL) CBC without differential (05/26/2025 8:20 PM CDT) WBC 7.74 3.80 - 9.90 K/cumm Hgb 9.9(L) 11.9 - 15.5 g/dL [facility] Hct 31.2(L) 35.6 - 45.5 % [facility] Plt 254 150 - 400 K/cumm [facility] MPV 10.9 9.1 - 12.3 fL [facility] RBC 3.30(L) 3.90 - 5.20 M/cumm [facility] MCV 94.5 81.3 - 96.4 fL [facility] MCH 30.0 27.1 - 33.3 pg [facility] MCHC 31.7(L) 32.3 - 35.7 g/dL [facility] RDW CV 14.5 11.1 - 14.9 % [facility] RDW SD 50.7(H) 35.7 - 48.1 fL [facility] NRBC abs 0.00 0.00 - 0.01 K/cumm [facility] Blood 05/26/2025 8:20 PM CDT 05/26/2025 8:35 PM CDT Leo Oliveros MD LAB BLOOD ORDERA BLES Final Result Performing Organization Address City/[facility]/ZIP Co de Phone Number [facility] Department [place] [address] * Basic metabolic panel (05/26/2025 8:20 PM CDT) Pathologist [facility] Sodium 143 135 - 145 mmol/L Potassium, pl 4.4 3.3 - 4.9 mmol/L [facility] Chloride 108 97 - 110 mmol/L [facility] CO2 24 22 - 32 mmol/L [facility] Anion gap 11 2 - 15 mmol/L [facility] BUN 23 6 - 25 mg/dL [facility] Creatinine 0.90 0.60 - 1.10 mg/dL [facility] Glucose 136 70 - 199 mg/dL [facility] Comment: Interpretive Data Fasting glucose >/= 126 [...] Current interpretive data was last revised 2022. Calcium 9.2 8.5 - 10.3 mg/dL [facility] Blood 05/26/2025 8:20 PM CDT 05/26/2025 8:35 PM CDT Leo Oliveros MD LAB BLOOD ORDERA BLES Final Result Performing Organization Address [facility]/ZIP Co de Phone Number [facility] Department [place] [address] * MSK CT Outside Consult (05/25/2025 6:56 PM CDT) Anatomical Region Laterality Modality N/A Computed Tomogra phy 05/25/2025 7:25 PM CDT Impressions 05/25/2025 8:38 PM CDT 1. Septic tenosynovitis with small fluid collections extending along the extensor tendon sheaths, primarily of extensor compartment 3 and 4. 2. Cellulitis of the dorsal hand extending to the partially imaged forearm. 3. No CT evidence of underlying osteomyelitis. The findings, conclusions and recommendations within this report do not replace the initial findings, conclusions and recommendations made at the facility where the study was performed based upon the imaging and clinical condition at that time. Comparison with the prior report and clinical history is necessary. The provided images may or may not represent the havasupai source data set and thus may contain changes that may lower the accuracy of this second-opinion interpretation. Dictated by: Timothy Arvizu MD The radiology attending physician has personally reviewed this study, and had reviewed and/or edited this written report and agrees with it. Electronically signed by: Heena Grubbs M.D. Narrative 05/25/2025 8:38 PM CDT EXAMINATION: RADIOLOGY CONSULTATION ON OUTSIDE IMAGING STUDY STUDY INITIALLY PERFORMED: [facility], 05/25/2025 TYPE OF STUDY: Multiple CT images of the right upper extremity with intravenous contrast are provided at the time of this interpretation. CONTRAST ROUTE: Contrast was administered via the intravenous route. The protocol was adequate to address the clinical question. The outside final report was not available at the time of this second opinion interpretation. TYPE OF CONSULTATION: Consult on outside imaging study with images submitted through Outside Image Sharing Service DATE OF CONSULTATION: 05/25/2025 HISTORY: 84-year-old female presenting after a cat bite. COMPARISON: No prior relevant imaging is available for comparison at the time of dictation. FINDINGS: Surrounding the extensor tendon sheath of extensor indices and digitalis and to a lesser extent extensor pollicis longus, there is a complex peripherally enhancing fluid collection measuring approximately 2.6 cm x 1.2 cm (series 3, image 77). There is associated tendinitis with the fluid collections. Superficial to this, there is fat stranding along the dorsal subcutaneous tissues of the hand extending towards the partially imaged forearm. There is no underlying sclerosis or erosion of the bones. Normal alignment of the carpal bones. 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 No acute fracture or retained foreign body. Procedure Note Heena Grubbs MD - 05/25/2025 EXAMINATION: RADIOLOGY CONSULTATION ON OUTSIDE IMAGING STUDY STUDY INITIALLY PERFORMED: [facility], 05/25/2025 TYPE OF STUDY: Multiple CT images of the right upper extremity with intravenous contrast are provided at the time of this interpretation. CONTRAST ROUTE: Contrast was administered via the intravenous route. The protocol was adequate to address the clinical question. The outside final report was not available at the time of this second opinion interpretation. TYPE OF CONSULTATION: Consult on outside imaging study with images submitted through Outside Image Sharing Service DATE OF CONSULTATION: 05/25/2025 HISTORY: 84-year-old female presenting after a cat bite. COMPARISON: No prior relevant imaging is available for comparison at the time of dictation. FINDINGS: Surrounding the extensor tendon sheath of extensor indices and digitalis and to a lesser extent extensor pollicis longus, there is a complex peripherally enhancing fluid collection measuring approximately 2.6 cm x 1.2 cm (series 3, image 77). There is associated tendinitis with the fluid collections. Superficial to this, there is fat stranding along the dorsal subcutaneous tissues of the hand extending towards the partially imaged forearm. There is no underlying sclerosis or erosion of the bones. Normal alignment of the carpal bones. 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 No acute fracture or retained foreign body. IMPRESSION: 1. Septic tenosynovitis with small fluid collections extending along the extensor tendon sheaths, primarily of extensor compartment 3 and 4. 2. Cellulitis of the dorsal hand extending to the partially imaged forearm. 3. No CT evidence of underlying osteomyelitis. The findings, conclusions and recommendations within this report do not replace the initial findings, conclusions and recommendations made at the facility where the study was performed based upon the imaging and clinical condition at that time. Comparison with the prior report and clinical history is necessary. The provided images may or may not represent the havasupai source data set and thus may contain changes that may lower the accuracy of this second-opinion interpretation. Dictated by: Timothy Arvizu MD The radiology attending physician has personally reviewed this study, and had reviewed and/or edited this written report and agrees with it. Electronically signed by: Heena Grubbs M.D. us Tee Bray MD IMG CT PROCEDURES Final Result * Check Sample (05/25/2025 5:49 PM CDT) ABO Rh A Negative [facility] OTHER 05/25/2025 5:49 PM CDT 05/25/2025 5:57 PM CDT us Guilherme Tinoco MD LAB BLOOD ORDERABLES Final Res ult [facility] Department [place] [address] [facility] * eGFR (05/25/2025 5:10 PM CDT) eGFR 67 >=60 mL/min/1. 73 m2 Comment: Interpretive Data [...] Current interpretive data was last reviewed 2021. Blood 05/25/2025 5:10 PM CDT 05/25/2025 5:22 PM CDT us Alena Chamorro MD LAB BLOOD ORDERABLES Mariel micheal Result [facility] Department [place] [address] * (ABNORMAL) Differential, auto (05/25/2025 5:10 PM CDT) Neutrophil abs 7.34(H) 1.50 - 6.50 K/cumm Imm gran abs 0.06 0.00 - 0.10 K/cumm [facility] Lymphocyte abs 0.50(L) 0.80 - 3.30 K/cumm [facility] Monocyte abs 0.33 0.20 - 0.80 K/cumm [facility] Eosinophil abs 0.03 0.00 - 0.50 K/cumm [facility] Basophil abs 0.04 0.00 - 0.10 K/cumm [facility] Neutrophil pct 88.4 % [facility] Comment: Interpretive Data Percent cell count reference ranges are not reported, since discordance with absolute values may lead to misinterpretation of CBC data. Current Interpretive Data was last revised on 2018. Imm gran pct 0.7 % [facility] Comment: Interpretive Data Percent cell count reference ranges are not reported, since discordance with absolute values may lead to misinterpretation of CBC data. Current Interpretive Data was last revised on 2018. Lymphocyte pct 6.0 % [facility] Comment: Interpretive Data Percent cell count reference ranges are not reported, since discordance with absolute values may lead to misinterpretation of CBC data. Current Interpretive Data was last revised on 2018. Monocyte pct 4.0 % [facility] Comment: Interpretive Data Percent cell count reference ranges are not reported, since discordance with absolute values may lead to misinterpretation of CBC data. Current Interpretive Data was last revised on 2018. Eosinophil pct 0.4 % [facility] Comment: Interpretive Data Percent cell count reference ranges are not reported, since discordance with absolute values may lead to misinterpretation of CBC data. Current Interpretive Data was last revised on 2018. Basophil pct 0.5 % [facility] Comment: Interpretive Data Percent cell count reference ranges are not reported, since discordance with absolute values may lead to misinterpretation of CBC data. Current Interpretive Data was last revised on 2018. Blood 05/25/2025 5:10 PM CDT 05/25/2025 5:23 PM CDT us Alena Chamorro MD LAB BLOOD ORDERABLES Mariel burton Result [facility] Department [place] [address] * (ABNORMAL) CBC with auto differential (05/25/2025 5:10 PM CDT) WBC 8.30 3.80 - 9.90 K/cumm Hgb 10.3(L) 11.9 - 15.5 g/dL [facility] Hct 33.3(L) 35.6 - 45.5 % [facility] Plt 252 150 - 400 K/cumm [facility] MPV 10.8 9.1 - 12.3 fL [facility] RBC 3.49(L) 3.90 - 5.20 M/cumm [facility] MCV 95.4 81.3 - 96.4 fL [facility] MCH 29.5 27.1 - 33.3 pg [facility] MCHC 30.9(L) 32.3 - 35.7 g/dL [facility] RDW CV 14.7 11.1 - 14.9 % [facility] RDW SD 52.2(H) 35.7 - 48.1 fL [facility] NRBC abs 0.00 0.00 - 0.01 K/cumm [facility] Blood 05/25/2025 5:10 PM CDT 05/25/2025 5:23 PM CDT Alena Chamorro MD LAB BLOOD ORDERABLES Mariel l Result Performing Organization Address [facility] Co de Phone Number [facility] [place] [address] * aPTT (05/25/2025 5:10 PM CDT) aPTT 31 28 - 38 sec Comment: Interpretive Data Heparin therapeutic range: 66.0 - 100.0 seconds. Range based on correlation with therapeutic heparin activity range of 0.3 - 0.7 Units/mL. Current interpretive data was last revised on 2023. Blood 05/25/2025 5:10 PM CDT 05/25/2025 5:28 PM CDT Alena Chamorro MD LAB BLOOD ORDERABLES Mariel l Result Performing Organization Address [facility] de Phone Number [facility] [place] [address] * Protime-INR (05/25/2025 5:10 PM CDT) PT 10.9 9.7 - 13.0 sec INR 1.01 0.90 - 1.20 [facility] Comment: Interpretive data Oral anticoagulant therapeutic ranges: Venous thromboembolism prophylaxis or treatment: 2.0-3.0 CARDIOLOGY Standard range: 2.0-3.0 High-intensity range: 2.5-3.5 Refer to indication-specific guidelines for appropriate target ranges for prosthetic heart valve replacement. Current interpretive data was last revised on 2019. Blood 05/25/2025 5:10 PM CDT 05/25/2025 5:28 PM CDT Alena Chamorro MD LAB BLOOD ORDERABLES Mariel l Result Performing Organization Address [facility] Co de Phone Number [facility] [place] [address] * Type and screen (05/25/2025 5:10 PM CDT) ABO Rh A Negative Sadie, indirect Negative [facility] Blood 05/25/2025 5:10 PM CDT 05/25/2025 5:18 PM CDT Narrative RE[facility] - 05/25/2025 6:05 PM CDT Has the patient had Daratumumab or Isatuximab in the past 6 months?->Unknown us Alena Chamorro MD LAB BLOOD BANK TEST ORDER NIRU Final Result [facility] Department [place] [address] * (ABNORMAL) Comprehensive metabolic panel (05/25/2025 5:10 PM CDT) Sodium 140 135 - 145 mmol/L Potassium, pl 4.3 3.3 - 4.9 mmol/L [facility] Chloride 105 97 - 110 mmol/L [facility] CO2 26 22 - 32 mmol/L [facility] Anion gap 9 2 - 15 mmol/L [facility] BUN 15 6 - 25 mg/dL [facility] Creatinine 0.86 0.60 - 1.10 mg/dL [facility] Glucose 113 70 - 199 mg/dL [facility] Comment: Interpretive Data Fasting glucose >/= 126 [...] Current interpretive data was last revised 2022. Calcium 9.5 8.5 - 10.3 mg/dL [facility] Bilirubin, total 0.3 0.1 - 1.2 mg/dL [facility] Protein, pl 7.0 6.5 - 8.5 g/dL [facility] Albumin 3.8 3.5 - 5.0 g/dL [facility] Alk phos 39(L) 40 - 130 Units/L [facility] ALT 19 7 - 45 Units/L [facility] AST 23 10 - 45 Units/L [facility] Blood 05/25/2025 5:10 PM CDT 05/25/2025 5:22 PM CDT Alena Chamorro MD LAB BLOOD ORDERABLES Mariel burton Result [facility] Department [place] [address] * MRI Cervical Spine W WO Contrast [...] is mild left neuroforaminal stenosis. There is uodl-mq-hclybgsg spinal canal stenosis. C3-C4: Posterior disc osteophyte [...] Robles Card M.D. MM T: Report ID: [id number] Reading Location: [id number] Procedure Note Robles Card MD - 04/25/2025 [...] is mild left neuroforaminal stenosis. There is mqou-ov-waaknbpr spinal canal stenosis. C3-C4: Posterior disc osteophyte [...] 04/25/2025 3:23 PM - Electronically signed by oRbles Card M.D. MM T: Report ID: [id number] Reading Location: [place] [address] [place] Amber Gaspar NP IMG MRI PROCEDURES Final Re [...] is mild left neuroforaminal stenosis. There is jcoe-dt-ijonhuus spinal canal stenosis. C3-C4: Posterior disc osteophyte [...] Robles Card M.D. MM T: Report ID: [id number] Reading Location: [place] [address] Procedure Note Robles Card MD - 04/25/2025 [...] is mild left neuroforaminal stenosis. There is meor-xc-dccktufr spinal canal stenosis. C3-C4: Posterior disc osteophyte [...] Robles Card M.D. MM T: Report ID: [id number] Reading Location: [place] [address] Amber Gaspar NP IMG MRI PROCEDURES Final Re sult from Last 3 Months Insurance MEDICARE COMMERCIAL GENERIC MEDICARE COMMERCIAL GENERIC MEDICARE Advance Directives For more information, please contact: [phone] * Full Code (Latest Code Status on File) Date Activated Date Inactivated Comments 05/25/2025 10:50 PM 05/30/2025 4:08 PM Care Teams Boot And Shoe Repairman Relationship Specialty Start Date End Date Rm Broderick MD [address] [facility] [address] [place] [address] PCP - General Family Medicine 12/18/24
--- OUTSIDE RECORDS SUMMARY | 2025-06-17 09:54 | XMS_ITS | Clinical Summary ---
Author Organization [facility] Michele Marcial Address [address] [place] [address] Care Team Providers Care Recruiting Specialist Name Role Phone Rm Broderick MD Primary Care Provider [phone] Allergies Active Allergy Reactions Criticality Noted Date [...] tablet Take 100 mcg by mouth. 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 Gender Identity Not on file Sexual Orientation [...] 167.6 cm (5' 6) 10/10/2023 11:24 AM PACK TRAIN DRIVER Body Mass Index 27.92 10/10/2023 11:24 AM PACK TRAIN DRIVER Plan of Treatment Upcoming Encounters Date Type Department Care Team (Late st Contact Info) Description 06/21/2025 11:45 AM CDT Office Visit [facility] Oncology and Hematology [facility] [address] [facility] [address] [place] [address] Carlos Desouza MD [address] [facility] [address] [place] [address] Health Maintenance Due Date Last Done Comments DTAP/TDAP/TD VACCINES (1 - Tdap) 1959 PNEUMOCOCCAL VACCINE 50+ YEA RS (1 of 2 - PCV) 1959 Traditional Medicare (ACO) A nnual Wellness Visit 1960 ZOSTER VACCINE (1 of 2) 1991 RSV VACCINE (60+ or ) (1 - 1-dose 75+ series) 2016 INFLUENZA VACCINE (#1) 2025 OSTEOPOROSIS SCREENING 11/23/2028 11/23/2023 COLORECTAL SCREENING Discontinued 12/21/2019, 12/21/19 20 Colorectal Cancer Screening Discontinued FIT-DNA Q 3 years Discontinued FIT/FOBT Q 1 year Discontinued Flex Sig/CT Colonography Q 5 years Discontinued Insurance GENERIC PAYOR MEDICARE PART A AND B Care Teams Recruiting Specialist Relationship Specialty Start Date End Date Rm Broderick MD [address] [facility] [address] [facility] [address] [place] [address] PCP - General Family Practice 02/15/25
[2025-06-17 10:59] LABS: Hematocrit 34.8 % (37.0-47.0); Hemoglobin 10.4 g/dL (12.0-15.0); Immature Granulocyte Percent A 0.8 % (0-0.5); Lymphocytes Absolute Auto 1.58 K/mm3 (0.9-3.2); Mean Corpuscular HGB Conc 29.9 g/dl (32-36); Mean Corpuscular Hemoglobin 28.3 pg (26-34); Mean Corpuscular Volume 94.6 fl (80-100); Nucleated Red Blood Cells Absolute Auto 0.000 K/mm3 (0.0-0.012); Nucleated Red Blood Cells Perc 0.0 % (0.0-0.2); Platelet Count Result 270 k/mm3 (150-375); Red Blood Count 3.68 M/mm3 (4.2-5.4); White Blood Count 7.4 K/mm3 (4.5-10.0)
[2025-06-17 11:11] LABS: Iron 39 ug/dL (37-170)
[2025-06-17 11:12] LABS: Alanine Aminotransferase 19 U/L (6-35); Albumin Level 3.9 g/dL (3.5-5.1); Alkaline Phosphatase 42 U/L (38-126); Anion Gap 3 mmol/L (4-12); Aspartate Amino Transferase 25 U/L (14-36); Bilirubin,Total 0.4 mg/dL (0.2-1.3); Blood Urea Nitrogen 21 mg/dL (7-17); Calcium 9.4 mg/dL (8.4-10.2); Carbon Dioxide 26 mmol/L (22-30); Chloride 107 mmol/L (98-107); Estimated Glomerular Filt Rate > 60; Glucose 93 mg/dL (65-110); Potassium 3.9 mmol/L (3.4-5.0); Sodium 136 mmol/L (137-145); Total Protein 6.9 g/dL (6.3-8.2)
[2025-06-17 11:20] LABS: Hypochromasia 1+; Schistocytes None Seen
[2025-06-17 11:23] LABS: Percent Iron Saturation 12 % (20-50)
[2025-06-17 11:59] LABS: Ferritin 10.20 ng/mL (11.1-264)
== END 2025-06-17 09:41 | disposition home or self-care (01) ==
PROVIDERS: PCP Family Medicine; Visit Provider Internal Medicine Hematology & Oncology
DX: D64.9 Anemia, unspecified (principal); C50.912 Malignant neoplasm of unspecified site of left female breast; Z17.0 Estrogen receptor positive status [ER+]
CPT/HCPCS: 36415; 80053; 82728; 83540; 83550; 85025; 86300

== ENCOUNTER 2025-08-01 15:34 | Outpatient (CLI) | payer MEDICARE, SELFPAY ==
--- NOTE | ~2025-08-01 | MM_ITS ---
EXAMINATION: MM screening aurea BI w alejandro HISTORY: Screening TECHNIQUE: Craniocaudal and mediolateral oblique 3-D tomosynthesis images were obtained and synthetic 2-D images were generated. CAD analysis was submitted and interpreted. COMPARISON: 05/08/2024 BREAST PARENCHYMAL COMPOSITION: There are scattered areas of fibroglandular density. FINDINGS: There is no evidence of suspicious mass, calcification, or architectural distortion to suggest malignancy. There has been no suspicious interval change. IMPRESSION: 1. No mammographic evidence of malignancy. Recommend routine screening mammography in one year. BI-RADS Category 2: Benign finding(s) Reviewed, dictated and finalized at location Q. IMPRESSION: 1. No mammographic evidence of malignancy. Recommend routine screening mammogra phy in one year. BI-RADS Category 2: Benign finding(s)
--- OUTSIDE RECORDS SUMMARY | 2025-08-01 17:37 | XMS_ITS | Encounter Summary ---
Author Organization [facility] Healthcare Address [address] [place] [address] Care Team Providers Care Clinical Dietician Name Role Phone Iliana Gonzalez MD Primary Care Provider Rm Broderick MD Primary Care Provider Reason for Visit * Reason Onset Date Comments Pre-Surgical Call 01/20/2022 Encounter Details Date Type Department Care Team (Late st Contact Info) Description 01/20/2022 Telephone [facility] [address] [facility] [address] [place] [address] Gurpreet Camp MD [address] [facility] [address] [place] [address] Pre-Surgical Call Social History Tobacco Use Types [...] on file 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 Author CCM Chronic Pain Care Plan Chronic Care Management On track(2020 1:08 PM POLY AREA SUPERVISOR) Joi Navarrete, RN Note: Problem: Chronic [...] COVID: Suspected 09/27/2024 09/27/2024 09/27/2024 6:23 PM POLY AREA SUPERVISOR documented as of this encounter Care Teams Clinical Dietician Relationship Specialty Start Date End Date Iliana Gonzalez MD [address] [place] [address] PCP - General 03/30/17 12/17/24 mR Broderick MD [address] [place] [address] PCP - General Family Medicine 12/18/24 documented as of this encounter
--- OUTSIDE RECORDS SUMMARY | 2025-08-01 17:37 | XMS_ITS | Encounter Summary ---
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 Gender Identity Not on file Sexual Orientation Not on file documented as of this encounter Plan of Treatment Upcoming Encounters Date Type Department Care Team (Late st Contact Info) Description 10/21/2025 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 Office Visit [facility] Oncology and Hematology - [place] [address] [place] [address] [address] [place] [address] Carlos Desouza MD [address] [facility] [address] [place] [address] documented as of this encounter Visit Diagnoses Not on filedocumented in this encounter Care Teams Projection Technician Relationship Specialty Start Date End Date Rm Broderick MD [address] [facility] [address] [place] [address] PCP - General Family Practice 02/15/25 documented as of this encounter
--- OUTSIDE RECORDS SUMMARY | 2025-08-01 17:37 | XMS_ITS | Clinical Summary ---
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 Active fluticasone-umec lidin-vilanter (Trelegy Ellipta) [...] needed for pain 20 tablet 5 Active Active Problems Problem Noted Date Diagnosed [...] Encounters Date Type Department Care Team Description 07/16/2025 4:15 PM CDT [facility] [address] [facility] Advanced Medicine 6th [place] [address] Bella Robles MD PhD Infection of right hand due to bite, initial encounter (Primary Dx) 06/11/2025 4:15 PM CDT Office Visit [facility] Medicine Surgery [address] [facility] Medicine 6th [place] [address] Bella Robles MD PhD Infection of right hand due to bite, initial encounter (Primary Dx) 06/06/2025 Telephone [facility] Medicine Surgery [address] [facility] 6th [place] [address] Della Rodriguez CMA 05/27/2025 9:40 AM CDT - 05/27/2025 11:45 AM CDT Surgery [facility] Operating Room [address] [place] [address] Bella Robles MD PhD INCISION AND DRAINAGE - UPPER EXTREMITY 05/27/2025 9:35 AM CDT Anesthesia Event [facility] Operating Room [address] [place] [address] Rigo Villegas MD Tyler, Marga Manuel MD 05/27/2025 Documentation [facility] Medicine Scheduling [address] [place] [address] [facility] 05/25/2025 4:45 PM CDT - 05/30/2025 12:03 PM CDT Hospital Encounter [address] [address] Guilherme Tinoco MD Badran, MD Tariq Galarza, Louis Solis MD Diagnosis unknown (Primary Dx); [...] on file Legal Sex Female 1:48 AM 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 Author CCM Chronic Pain Care Plan Chronic Care Management On track(2020 1:08 PM PHOTOGRAPHY AND PRINTS CURATOR) Joi Navarrete RN Note: Problem: Chronic Pain Goals: 1. Minimize further functional decline 2. Maximize quality of life 3. Control pain Strategies: - Activity/exercise program recommendation - Conservative stepwise pain medicine strategy with multi-disciplinary approach - Recommend healthy lifestyle strategies and compensatory methods as needed Medical Devices Implanted Type Area Desk Assistant Device Identifier Shelf Expiration Date Model / Serial / Lot Rt Knee Hip B/L Hips Hip Procedures Procedure Name Priority Date/Time Associated Diagnosis Comments EGFR Routine 05/29/2025 8:04 PM CDT CBC WITHOUT DIFFERENTIAL Routine 05/29/2025 8:04 PM CDT BASIC METABOLIC PANEL Routine 05/29/2025 8:04 PM CDT VANCOMYCIN LEVEL TROUGH Routine 05/28/20 9:05 PM CDT EGFR Routine 05/28/2025 9:05 [...] initial encounter Case Notes Case changed to [email or web address] robles MST EGFR Routine 05/26/2025 8:20 PM CDT CBC WITHOUT DIFFERENTIAL Routine 05/26/2025 8:20 PM CDT BASIC METABOLIC PANEL Routine 05/26/2025 8:[address] OUTSIDE CONSULT Routine 6:56 PM CDT Diagnosis unknown B CHECK SAMPLE STAT 05/25/2025 5:49 PM CDT EGFR STAT 05/25/2025 5:10 PM CDT DIFFERENTIAL AUTO STAT 05/25/2025 5:1 0 PM CDT TYPE AND SCREEN STAT 05/25/2025 5:10 PM CDT APTT STAT 05/25/2025 5:10 PM CDT PROTIME-INR STAT 05/25/2025 5:10 PM CDT COMPREHENSIVE METABOLIC PANEL STAT 05/25/2025 5:10 PM CDT CBC WITH AUTO DIFFERENTIAL STAT 05/25/2025 5:10 PM CDT from Last 3 Months Results * (ABNORMAL) eGFR (05/29/2025 8:04 PM CDT) eGFR 55(L) >=60 mL/min/1. 73 m2 Comment: [...] 8:04 PM CDT 05/29/2025 8:58 PM CDT us Leo Oliveros MD LAB BLOOD ORDERA BLES Final Result [facility] Department [place] [address] * (ABNORMAL) CBC without differential (05/29/2025 8:04 PM CDT) WBC 6.67 3.80 - 9.90 K/cumm Hgb 9.8(L) 11.9 - 15.5 g/dL [facility] Hct 31.5(L) 35.6 - 45.5 % [facility] Plt 269 150 - 400 K/cumm [facility] MPV 10.6 9.1 - 12.3 fL [facility] RBC 3.30(L) 3.90 - 5.20 M/cumm [facility] MCV 95.5 81.3 - 96.4 fL [facility] MCH 29.7 27.1 - 33.3 pg [facility] MCHC 31.1(L) 32.3 - 35.7 g/dL [facility] RDW CV 14.6 11.1 - 14.9 % [facility] RDW SD 52.1(H) 35.7 - 48.1 fL [facility] NRBC abs 0.00 0.00 - 0.01 K/cumm [facility] Blood 05/29/2025 8:04 PM CDT 05/29/2025 8:52 PM CDT Leo Oliveros MD LAB BLOOD ORDERA BLES Final Result [facility] Department [place] [address] * Basic metabolic panel (05/29/2025 8:04 PM CDT) Sodium 141 135 - 145 mmol/L Potassium, pl 4.3 3.3 - 4.9 mmol/L [facility] Comment:Hemolyzed; Potassium value may be falsely elevated by as much as 0.3-0.5 mmol/L. Suggest redraw and reanalysis. Chloride 107 97 - 110 mmol/L [facility] CO2 25 22 - 32 mmol/L [facility] Anion gap 9 2 - 15 mmol/L [facility] BUN 10 6 - 25 mg/dL [facility] Creatinine 1.01 0.60 - 1.10 mg/dL [facility] Glucose 115 70 - 199 mg/dL [facility] Comment: Interpretive Data Fasting glucose >/= 126 [...] 2022. Calcium 9.3 8.5 - 10.3 mg/dL [facility] Blood 05/29/2025 8:04 PM CDT 05/29/2025 8:58 PM CDT Leo Oliveros MD LAB BLOOD ORDERA BLES Final Result Performing Organization Address [facility] Co de Phone Number RENAN REBOLLAR [facility] Department [place] [address] * eGFR (05/28/2025 9:05 PM CDT) eGFR [...] ORDERA BLES Final Result Performing Organization Address City/[facility] Co de Phone Number RENAN REBOLLAR [facility] Department [place] [address] * (ABNORMAL) CBC without differential (05/28/2025 9:05 PM CDT) WBC 6.64 3.80 - 9.90 K/cumm Hgb 9.4(L) 11.9 - 15.5 g/dL [facility] Hct 30.2(L) 35.6 - 45.5 % [facility] Plt 266 150 - 400 K/cumm [facility] MPV 11.0 9.1 - 12.3 fL [facility] RBC 3.18(L) 3.90 - 5.20 M/cumm [facility] MCV 95.0 81.3 - 96.4 fL [facility] MCH 29.6 27.1 - 33.3 pg [facility] MCHC 31.1(L) 32.3 - 35.7 g/dL [facility] RDW CV 14.6 11.1 - 14.9 % [facility] RDW SD 51.4(H) 35.7 - 48.1 fL [facility] NRBC abs 0.00 0.00 - 0.01 K/cumm [facility] Blood 05/28/2025 9:05 PM CDT 05/28/2025 9:37 PM CDT Leo Oliveros MD LAB BLOOD ORDERA BLES Final Result Performing Organization Address City/[facility]/ZIP Co de Phone Number [facility] Department [place] [address] * (ABNORMAL) Vancomycin level trough (05/28/2025 9:05 PM CDT) [facility] Vancomycin trough 6.0(L) 10.0 - 20.0 mcg/mL Blood 05/28/2025 9:05 PM CDT 05/28/2025 9:37 PM CDT Leo Oliveros MD LAB BLOOD ORDERA BLES Final Result [facility] Department of [facility] [place] [address] * Basic metabolic panel (05/28/2025 9:05 PM CDT) [facility] Sodium 139 135 - 145 mmol/L Potassium, pl 4.0 3.3 - 4.9 mmol/L [facility] Chloride 105 97 - 110 mmol/L [facility] CO2 26 22 - 32 mmol/L [facility] Anion gap 8 2 - 15 mmol/L [facility] BUN 8 6 - 25 mg/dL [facility] Creatinine 0.76 0.60 - 1.10 mg/dL [facility] Glucose 127 70 - 199 mg/dL [facility] Comment: Interpretive Data Fasting glucose >/= 126 [...] 2022. Calcium 9.3 8.5 - 10.3 mg/dL [facility] Blood 05/28/2025 9:05 PM CDT 05/28/2025 9:37 PM CDT Leo Oliveros MD LAB BLOOD ORDERA BLES Final Result [facility] Department [place] [address] * (ABNORMAL) Troponin I high-sensitivity 2-hour (05/28/2025 2:18 PM CDT) Trop I hs 45(H) <=17 ng/L Comment: Interpretive Data For further hscTnI resources including the diagnostic algorithm and an aid in interpretation, copy and paste this link: https://bjhlab.testcatalog.org/show/hsTrop-1 Current Interpretive Data last revised 2020. Trop I hs delta -12(C) ng/L [facility] Trop I hs interp Significa nt(C) [facility] Blood 05/28/2025 2:18 PM CDT 05/28/2025 2:42 PM CDT Karen Tolbert [facility] LAB BLOOD ORDERABLES Fin al Result Performing Organization Address [facility] Co de Phone Number [facility] [place] [address] * Critical result callback Cardio chemistry (05/28/2025 2:18 PM CDT) Date Notified [id number] Time Notified 1521 RENAN [facility] Test name Trop I hs 2hr delta RENAN [facility] Called/Read Back Saraatiya Leiva [facility] Credentials RN RENAN [facility] Called By PD RENAN [facility] Blood 05/28/2025 2:18 PM CDT 05/28/2025 2:42 PM CDT Karen Tolbert [facility] LAB BLOOD ORDERABLES Fin al Result Performing Organization Address [facility] de Phone Number [facility] [place] [address] * XR Chest PA Lateral 2 Views [...] Electronically signed by: Rebecca Bishop M.D. Karen Patel NP IMG XR PROCEDURES Final Result * ECG 12 lead (05/28/2025 12:36 PM CDT) Ventricular Rate EKG/Min 86 BPM [facility] Atrial Rate [address] [facility] IL-Interval (MSEC) [address] [facility] QRS-Interval (MSEC) [address] [facility] QT-Interval (MSEC) [address] [facility] QTc [address] [facility] P Rodney [address] [facility] R Rodney -[address] [facility] T Rodney [address] [facility] Diagnosis Normal sinus rhythm Incomplete right bundle branch block Minimal voltage criteria for LVH, may be normal variant ( R in aVL ) Borderline ECG When compared with ECG of 27-DEC-2024 11:01, Premature ventricular complexes are no longer Present Nonspecific T wave abnormality now evident in Anterior leads Confirmed by EDINSON RODRIGUEZ M.D ([id number]) on 05/28/2025 8:33:[address] [facility] 05/28/2025 12:3 6 PM CDT 05/28/2025 8:33 PM CDT Karen Patel NP ECG ORDERABLES Final Re sult [facility] * (ABNORMAL) Troponin I high-sensitivity series (baseline, 2hr, 4hr, 6hr) (05/28/2025 12:20 PM CDT) Trop I hs 57(H) <=17 ng/L Comment: Interpretive Data For further hscTnI resources including the diagnostic algorithm and an aid in interpretation, copy and paste this link: https://bjhlab.testcatalog.org/show/hsTrop-1 Current Interpretive Data last revised 2020. Blood 05/28/2025 12:2 0 PM CDT 05/28/2025 1:00 PM CDT Karen Patel LAB BLOOD ORDERABLES Fin al Result RENAN [facility] Department [place] [address] * eGFR (05/28/2025 12:20 PM CDT) eGFR [...] PM CDT 05/28/2025 12:41 PM CDT [facility] LAB BLOOD ORDERABLES Fin al Result Performing Organization Address City/[facility] de Phone Number [facility] Department [place] [address] * (ABNORMAL) CBC without differential (05/28/2025 12:20 PM CDT) [facility] WBC 9.79 3.80 - 9.90 K/cumm Hgb 9.8(L) 11.9 - 15.5 g/dL [facility] Hct 31.4(L) 35.6 - 45.5 % [facility] Plt 232 150 - 400 K/cumm [facility] MPV 11.6 9.1 - 12.3 fL [facility] RBC 3.27(L) 3.90 - 5.20 M/cumm [facility] MCV 96.0 81.3 - 96.4 fL [facility] MCH 30.0 27.1 - 33.3 pg [facility] MCHC 31.2(L) 32.3 - 35.7 g/dL [facility] RDW CV 14.7 11.1 - 14.9 % [facility] RDW SD 51.5(H) 35.7 - 48.1 fL [facility] NRBC abs 0.00 0.00 - 0.01 K/cumm [facility] Blood 05/28/2025 12:2 0 PM CDT 05/28/2025 12:41 PM CDT Karen Patel LAB BLOOD ORDERABLES Fin al Result Performing Organization Address [facility] Co de Phone Number [facility] Department [place] [address] * Basic metabolic panel (05/28/2025 12:20 PM CDT) [facility] Sodium 142 135 - 145 mmol/L Potassium, pl 4.0 3.3 - 4.9 mmol/L [facility] Comment:Hemolyzed; Potassium value may be falsely elevated by as much as 0.3-0.5 mmol/L. Suggest redraw and reanalysis. Chloride 107 97 - 110 mmol/L [facility] CO2 24 22 - 32 mmol/L [facility] Anion gap 11 2 - 15 mmol/L [facility] BUN 10 6 - 25 mg/dL [facility] Creatinine 0.81 0.60 - 1.10 mg/dL [facility] Glucose 110 70 - 199 mg/dL [facility] Comment: Interpretive Data Fasting glucose >/= 126 [...] 2022. Calcium 9.2 8.5 - 10.3 mg/dL [facility] Blood 05/28/2025 12:2 0 PM CDT 05/28/2025 12:41 PM CDT us Karen Patel [employer] LAB BLOOD ORDERABLES [facility] al Result [facility] Department [place] [address] * eGFR (05/27/2025 11:58 PM CDT) eGFR 63 >=60 mL/min/1. 73 [...] MD LAB BLOOD ORDERA BLES Final Result [facility] Department [place] [address] * (ABNORMAL) CBC without differential (05/27/2025 11:58 PM CDT) WBC 6.78 3.80 - 9.90 K/cumm Hgb 8.9(L) 11.9 - 15.5 g/dL [facility] Hct 29.2(L) 35.6 - 45.5 % [facility] Plt 186 150 - 400 K/cumm [facility] MPV 11.8 9.1 - 12.3 fL [facility] RBC 3.01(L) 3.90 - 5.20 M/cumm [facility] MCV 97.0(H) 81.3 - 96.4 fL [facility] MCH 29.6 27.1 - 33.3 pg [facility] MCHC 30.5(L) 32.3 - 35.7 g/dL [facility] RDW CV 14.7 11.1 - 14.9 % [facility] RDW SD 52.3(H) 35.7 - 48.1 fL [facility] NRBC abs 0.00 0.00 - 0.01 K/cumm [facility] Blood 05/27/2025 11:5 8 PM CDT 05/28/2025 12:46 AM CDT Leo Oliveros MD LAB BLOOD ORDERA BLES Final Result RENAN [facility] Department [place] [address] * Basic metabolic panel (05/27/2025 11:58 PM CDT) Sodium 141 135 - 145 mmol/L Potassium, pl 3.6 3.3 - 4.9 mmol/L [facility] Chloride 108 97 - 110 mmol/L [facility] CO2 27 22 - 32 mmol/L [facility] Anion gap 6 2 - 15 mmol/L [facility] BUN 11 6 - 25 mg/dL [facility] Creatinine 0.90 0.60 - 1.10 mg/dL [facility] Glucose 81 70 - 199 mg/dL [facility] Comment: Interpretive Data Fasting glucose >/= 126 [...] 2022. Calcium 9.1 8.5 - 10.3 mg/dL [facility] Blood 05/27/2025 11:5 8 PM CDT 05/28/2025 12:45 AM CDT us Loe Oliveros MD LAB BLOOD ORDERA BLES Final Result RE[facility]N [facility] Department [place] [address] * Mycology (fungal) culture and stain Tissue Hand, right (05/27/2025 10:16 AM CDT) Direct Specimen Exam Stain: No Fungal elements seen. Report Final Report: No growth of fungus [facility] Tissue (Hand, right) 05/27/2025 10:16 AM CDT 05/27/2025 11:44 AM CDT Narrative RENAN REBOLLAR - 06/24/2025 7:37 AM CDT Right dorsal hand Testing performed by [facility] Microbiology Laboratory ([phone]). us Bella Robles MD PhD LAB MICROBIOLOGY - GENE RAL ORDERABLES Final Result Performing Organization Address [facility] Co de Phone Number [facility] Department [place] [address] * Mycobacteriology (AFB) culture and acid-fast stain Tissue Hand, right (05/27/2025 10:16 AM CDT) Direct Specimen Exam Stain: No Acid-fast bacilli seen Report Final Report: No growth of acid-fast bacilli [facility] Tissue (Hand, right) 05/27/2025 10:16 AM CDT 05/27/2025 11:44 AM CDT Narrative RENAN [facility] - 07/29/2025 2:50 PM CDT Right dorsal hand Testing performed by [facility] Microbiology Laboratory ([phone]). us Bella Robles MD PhD LAB MICROBIOLOGY - GENE RAL ORDERABLES Final Result Performing Organization Address [facility] Co de Phone Number [facility] Department [place] [address] * Aerobic and anaerobic culture and gram stain Wound Hand, right (05/27/2025 10:16 AM CDT) Direct Specimen Exam Stain: Rare polymorphonuclear leukocytes seen. No organisms seen. Report Final Report: No growth [facility] Wound (Hand, right) 05/27/2025 10:16 AM CDT 05/27/2025 11:44 AM CDT Narrative RENAN [facility] - 05/30/2025 8:02 AM CDT Right dorsal hand Specimen received on an ESwab. Testing performed by [facility] Microbiology Laboratory ([phone]) Specimens submitted from normally sterile body sites [...] LAB MICROBIOLOGY - GENERAL ORDERABLES Final Result Performing Organization Address City/[facility]/ZIP Co de Phone Number [facility] Department [place] [address] * Mycology (fungal) culture and stain Wound Hand, right (05/27/2025 10:15 AM CDT) Direct Specimen Exam Stain: No Fungal elements seen. Report Final Report: No growth of fungus [facility] Wound (Hand, right) 05/27/2025 10:15 AM CDT 05/27/2025 11:45 AM CDT Narrative [facility] - 06/24/2025 7:37 AM CDT Right hand wound Specimen received on an ESwab. Testing performed by [facility] Microbiology Laboratory ([phone]). us Bella Robles MD PhD LAB MICROBIOLOGY - GENE RAL ORDERABLES Final Result [facility] Department [place] [address] * Mycobacteriology (AFB) culture and acid-fast stain Wound Hand, right (05/27/2025 10:15 AM CDT) Direct Specimen Exam Stain: No Acid-fast bacilli seen Report Final Report: No growth of acid-fast bacilli [facility] Wound (Hand, right) 05/27/2025 10:15 AM CDT 05/27/2025 11:46 AM CDT Narrative RENAN [facility] - 07/29/2025 2:50 PM CDT Right hand wound Specimen received on an ESwab. Testing performed by [facility] Microbiology Laboratory ([phone]). us Bella Robles MD PhD LAB MICROBIOLOGY - GENE RAL ORDERABLES Final Result Performing Organization Address [facility] Co de Phone Number [facility] Department [place] [address] * Aerobic and anaerobic culture and gram stain Wound Hand, right (05/27/2025 10:15 AM CDT) Direct Specimen Exam Stain: Few polymorphonuclear leukocytes seen. No organisms seen. Report Final Report: No growth [facility] Wound (Hand, right) 05/27/2025 10:15 AM CDT 05/27/2025 11:47 AM CDT Narrative RENAN [facility] - 05/30/2025 8:02 AM CDT Right hand wound Specimen received on an ESwab. Testing performed by [facility] Microbiology Laboratory ([phone]) Specimens submitted from normally sterile body sites [...] interpretive data was last revised on 2020. us Leo Oliveros MD LAB MICROBIOLOGY - GENERAL ORDERABLES Final Result Performing Organization Address City/[facility] Co de Phone Number [facility] Department [place] [address] * Airway (05/27/2025 9:56 AM CDT) Narrative Marga Solorio MD - 05/27/2025 9:56 AM CDT Marag Solorio MD 05/27/2025 9:57 AM Airway Patient [...] between attempts: none Planned trial extubation: yes us Marga Solorio MD ANESTHESIA ORDERABLES Fi nal [...] MD LAB BLOOD ORDERA BLES Final Result [facility] Department [place] [address] * (ABNORMAL) CBC without differential (05/26/2025 8:20 PM CDT) Pathologist [facility] WBC 7.74 3.80 - 9.90 K/cumm Hgb 9.9(L) 11.9 - 15.5 g/dL [facility] Hct 31.2(L) 35.6 - 45.5 % [facility] Plt 254 150 - 400 K/cumm [facility] MPV 10.9 9.1 - 12.3 fL [facility] RBC 3.30(L) 3.90 - 5.20 M/cumm [facility] MCV 94.5 81.3 - 96.4 fL [facility] MCH 30.0 27.1 - 33.3 pg [facility] MCHC 31.7(L) 32.3 - 35.7 g/dL [facility] RDW CV 14.5 11.1 - 14.9 % [facility] RDW SD 50.7(H) 35.7 - 48.1 fL [facility] NRBC abs 0.00 0.00 - 0.01 K/cumm [facility] Blood 05/26/2025 8:20 PM CDT 05/26/2025 8:35 PM CDT Leo Baxter'Iza Oliveros MD LAB BLOOD ORDERA BLES Final Result [facility] Department [place] [address] * Basic metabolic panel (05/26/2025 8:20 PM CDT) Sodium 143 135 - 145 mmol/L Potassium, pl 4.4 3.3 - 4.9 mmol/L [facility] Chloride 108 97 - 110 mmol/L [facility] CO2 24 22 - 32 mmol/L [facility] Anion gap 11 2 - 15 mmol/L [facility] BUN 23 6 - 25 mg/dL [facility] Creatinine 0.90 0.60 - 1.10 mg/dL [facility] Glucose 136 70 - 199 mg/dL [facility] Comment: Interpretive Data Fasting glucose >/= 126 [...] 2022. Calcium 9.2 8.5 - 10.3 mg/dL [facility] Blood 05/26/2025 8:20 PM CDT 05/26/2025 8:35 PM CDT Leo Oliveros MD LAB BLOOD ORDERA BLES Final Result [facility] [place] [address] * MSK CT Outside Consult (05/25/2025 6:56 [...] images may or may not represent the [place] source data set and thus may contain [...] ON OUTSIDE IMAGING STUDY STUDY INITIALLY PERFORMED: [facility], 05/25/2025 TYPE OF STUDY: Multiple CT images [...] ON OUTSIDE IMAGING STUDY STUDY INITIALLY PERFORMED: [facility], 05/25/2025 TYPE OF STUDY: Multiple CT images [...] images may or may not represent the [place] source data set and thus may contain changes that may lower the accuracy of this second-opinion interpretation. Dictated by: Timothy Arvizu MD The radiology attending physician has personally reviewed this study, and had reviewed and/or edited this written report and agrees with it. Electronically signed by: Heena Grubbs M.D. Tee Bray MD IM CT PROCEDURES Final Result * Check Sample (05/25/2025 5:49 PM CDT) ABO Rh A Negative [facility] HCLL OTHER 05/25/2025 5:49 PM CDT 05/25/2025 5:57 PM CDT us Guilherme Tinoco MD LAB BLOOD ORDERABLES Final Res ult Performing Organization Address [facility] Co de Phone Number [facility] Department [place] [address] [facility] * eGFR (05/25/2025 5:10 PM CDT) [...] ORDERABLES Mariel l Result Performing Organization Address City/[facility]/ZIP Co de Phone Number [facility] Department [place] [address] * (ABNORMAL) Differential, auto (05/25/2025 5:10 PM CDT) Neutrophil abs 7.34(H) 1.50 - 6.50 K/cumm Imm gran abs 0.06 0.00 - 0.10 K/cumm [facility] Lymphocyte abs 0.50(L) 0.80 - 3.30 K/cumm [facility] Monocyte abs 0.33 0.20 - 0.80 K/cumm [facility] Eosinophil abs 0.03 0.00 - 0.50 K/cumm [facility] Basophil abs 0.04 0.00 - 0.10 K/cumm [facility] Neutrophil pct 88.4 % [facility] Comment: Interpretive Data Percent cell count reference ranges are not reported, since discordance with absolute values may lead to misinterpretation of CBC data. Current Interpretive Data was last revised on 2018. Imm gran pct 0.7 % [facility] Comment: Interpretive Data Percent cell count reference ranges are not reported, since discordance with absolute values may lead to misinterpretation of CBC data. Current Interpretive Data was last revised on 2018. Lymphocyte pct 6.0 % [facility] Comment: Interpretive Data Percent cell count reference ranges are not reported, since discordance with absolute values may lead to misinterpretation of CBC data. Current Interpretive Data was last revised on 2018. Monocyte pct 4.0 % [facility] Comment: Interpretive Data Percent cell count reference ranges are not reported, since discordance with absolute values may lead to misinterpretation of CBC data. Current Interpretive Data was last revised on 2018. Eosinophil pct 0.4 % [facility] Comment: Interpretive Data Percent cell count reference ranges are not reported, since discordance with absolute values may lead to misinterpretation of CBC data. Current Interpretive Data was last revised on 2018. Basophil pct 0.5 % [facility] Comment: Interpretive Data Percent cell count reference ranges are not reported, since discordance with absolute values may lead to misinterpretation of CBC data. Current Interpretive Data was last revised on 2018. Blood 05/25/2025 5:10 PM CDT 05/25/2025 5:23 PM CDT us Alena Chamorro MD LAB BLOOD ORDERABLES Mariel burton Result [facility] Department [place] [address] * (ABNORMAL) CBC with auto differential (05/25/2025 5:10 PM CDT) [facility] WBC 8.30 3.80 - 9.90 K/cumm Hgb 10.3(L) 11.9 - 15.5 g/dL [facility] Hct 33.3(L) 35.6 - 45.5 % [facility] Plt 252 150 - 400 K/cumm [facility] MPV 10.8 9.1 - 12.3 fL [facility] RBC 3.49(L) 3.90 - 5.20 M/cumm [facility] MCV 95.4 81.3 - 96.4 fL [facility] MCH 29.5 27.1 - 33.3 pg [facility] MCHC 30.9(L) 32.3 - 35.7 g/dL [facility] RDW CV 14.7 11.1 - 14.9 % [facility] RDW SD 52.2(H) 35.7 - 48.1 fL [facility] NRBC abs 0.00 0.00 - 0.01 K/cumm [facility] Blood 05/25/2025 5:10 PM CDT 05/25/2025 5:23 PM CDT Alena Chamorro MD LAB BLOOD ORDERABLES Mariel l Result [facility] [place] [address] * aPTT (05/25/2025 5:10 PM CDT) [facility] aPTT 31 28 - 38 sec Comment: Interpretive Data Heparin therapeutic range: 66.0 - 100.0 seconds. Range based on correlation with therapeutic heparin activity range of 0.3 - 0.7 Units/mL. Current interpretive data was last revised on 2023. Blood 05/25/2025 5:10 PM CDT 05/25/2025 5:28 PM CDT Alena Chamorro MD LAB BLOOD ORDERABLES Mariel l Result Performing Organization Address [facility] Co de Phone Number [facility] [place] [address] * Protime-INR (05/25/2025 5:10 PM CDT) PT 10.9 9.7 - 13.0 sec INR 1.01 0.90 - 1.20 [facility] Comment: Interpretive data Oral anticoagulant therapeutic ranges: Venous thromboembolism prophylaxis or treatment: 2.0-3.0 CARDIOLOGY Standard range: 2.0-3.0 High-intensity range: 2.5-3.5 Refer to indication-specific guidelines for appropriate target ranges for prosthetic heart valve replacement. Current interpretive data was last revised on 2019. Blood 05/25/2025 5:10 PM CDT 05/25/2025 5:28 PM CDT Alena Chamorro MD LAB BLOOD ORDERABLES Mariel l Result Performing Organization Address [facility] [address] * Type and screen (05/25/2025 5:10 PM CDT) ABO Rh A Negative Sadie, indirect Negative [facility] Blood 05/25/2025 5:10 PM CDT 05/25/2025 5:18 PM CDT Narrative [facility] - 05/25/2025 6:05 PM CDT Has the patient had Daratumumab or Isatuximab in the past 6 months?->Unknown Alena Chamorro MD LAB BLOOD BANK TEST ORDER NIRU Final Result Performing Organization Address [facility] [address] * (ABNORMAL) Comprehensive metabolic panel (05/25/2025 5:10 PM CDT) Sodium 140 135 - 145 mmol/L Potassium, pl 4.3 3.3 - 4.9 mmol/L [facility] Chloride 105 97 - 110 mmol/L [facility] CO2 26 22 - 32 mmol/L [facility] Anion gap 9 2 - 15 mmol/L [facility] BUN 15 6 - 25 mg/dL [facility] Creatinine 0.86 0.60 - 1.10 mg/dL [facility] Glucose 113 70 - 199 mg/dL [facility] Comment: Interpretive Data Fasting glucose >/= 126 [...] 2022. Calcium 9.5 8.5 - 10.3 mg/dL [facility] Bilirubin, total 0.3 0.1 - 1.2 mg/dL [facility] Protein, pl 7.0 6.5 - 8.5 g/dL [facility] Albumin 3.8 3.5 - 5.0 g/dL [facility] Alk phos 39(L) 40 - 130 Units/L [facility] ALT 19 7 - 45 Units/L [facility] AST 23 10 - 45 Units/L [facility] Blood 05/25/2025 5:10 PM CDT 05/25/2025 5:22 PM CDT us Alena Chamorro MD LAB BLOOD ORDERABLES Mariel burton Result [facility] Department [place] [address] from Last 3 Months Insurance MEDICARE COMMERCIAL GENERIC MEDICARE COMMERCIAL GENERIC MEDICARE COMMERCIAL GENERIC Advance Directives For more information, please contact: [phone] * Full Code (Latest Code Status on File) Date Activated Date Inactivated Comments 05/25/2025 10:50 PM 05/30/2025 4:08 PM Care Teams Synthetic Plasterer Relationship Specialty Start Date End Date Rm Broderick MD [address] [facility] [address] [place] [address] PCP - General Family Medicine 12/18/24
--- OUTSIDE RECORDS SUMMARY | 2025-08-01 17:37 | XMS_ITS | Clinical Summary ---
Author Organization [facility] Michele Marcial Address [address] [place] [address] Care Team Providers Care Electronic Scale Tester Name Role Phone Rm Broderick MD Primary Care Provider [phone] Allergies Active Allergy Reactions Criticality Noted Date Comments Morphine Shortness of Breath/Wheezing,Rash High 10/30/2018 Patient reports its very bad when she takes anything with any morphine in it. Medications aspirin (MARIPOSA CHEWABLE) 81 mg Tablet, [...] tablet Take 100 mcg by mouth. Active [id number] -Lmfolate-algal 27 mg iron-1.13 mg-581.92 mg Capsule [...] times daily. 60 Tablet 3 5 Active Active Problems Problem Noted Date Diagnosed Date Iron deficiency anemia, unspecified 07/03/2025 Encounters Date Type Department Care Team Description 07/09/2025 External Device Data STL ABSTRACTION Provider, Abstract 06/26/2025 External Device Data STL ABSTRACTION Provider, Abstract 06/21/2025 11:45 AM CDT Office Visit [facility] Oncology and Hematology [facility] [address] [place] [address] Carlos Desouza MD Chronic anemia (Primary Dx); Malignant neoplasm of left breast in female, estrogen receptor positive, unspecified site of breast (CMS/HCC) 06/18/2025 Orders Only [facility] Oncology and Hematology [facility] [address] [place] [address] Carlos Desouza MD 06/12/2025 External Device Data STL ABSTRACTION Provider, [...] on file Legal Sex Female 3:16 AM CHEMICAL LABORATORY TECHNICIAN Gender Identity Not on file Sexual Orientation Not on file Last Filed Vital Signs Vital Sign Reading Time Taken Comments Blood Pressure 124/65 06/21/2025 10:39 AM CDT Pulse 80 02/15/2025 11:31 AM CDT Temperature 36.3 C (97.4 F) 06/21/2025 10:39 AM CDT Respiratory Rate 12 06/21/2025 10:3 9 AM CDT Oxygen Saturation 95% 06/21/2025 10: 39 AM CDT Inhaled Oxygen Concentration - - Weight 81.1 kg (178 lb 12.8 oz) 025 10:39 AM CDT Height 167.6 cm (5' 6) 10/10/2023 11:2 4 AM CHEMICAL LABORATORY TECHNICIAN Body Mass Index 28.86 10/10/2023 11:24 AM CHEMICAL LABORATORY TECHNICIAN Plan of Treatment Upcoming Encounters Date Type Department Care Team (Late st Contact Info) Description 10/21/2025 10:00 AM CHEMICAL LABORATORY TECHNICIAN Office Visit [facility] Oncology and Hematology - [place] [address] [facility] [address] [place] [address] Carlos Desouza MD [address] [facility] [address] [place] [address] Health Maintenance Due Date Last [...] Procedure Name Priority Date/Time Associated Diagnosis Comments CHG CA 15 3 Routine 06/17/2025 12:58 PM CDT COMPREHENSIVE METABOLIC PANEL Routine 06/17/2025 12:25 PM CDT from Last 3 Months Results * CHG CA 15 3 (06/17/2025 12:58 PM CDT) Carlos Desouza MD CHG - LABORATORY Final Result * COMPREHENSIVE METABOLIC PANEL (06/17/2025 12:25 PM CDT) Blood Carlos Desouza MD CHEMISTRY ORDERABLES Final Resu lt from Last 3 Months Insurance GENERIC PAYOR MEDICARE PART A AND B Care Teams Electronic Scale Tester Relationship Specialty Start Date End Date Rm Broderick MD [address] [facility] [address] [address] PCP - General Family Practice 02/15/25
--- OUTSIDE RECORDS SUMMARY | 2025-08-01 17:37 | XMS_ITS | Encounter Summary ---
Author Organization [facility] Address [address] [place] [address] Phone Care Team Providers Care Unmanned Aircraft Systems Roboticist Name Role Phone Iliana Gonzalez MD Primary Care Provider Rm Broderick MD Primary Care Provider Encounter Details Date Type Department Care Team (Late st Contact Info) Description 01/03/2018 Orders Only [facility] ProviderSharif MD [address] [place] [id number] Social History Tobacco Use Types Packs/Day Years Used Date Smoking Tobacco: Never Assessed Alcohol Use Standard Drinks/Week Comments No 0 (1 standard drink = 0.6 oz pur e alcohol) Comments Unknown Sex and Gender Information Value Date Recorded Sex Assigned at Not on file Legal Sex Female 1:48 AM DYE TANK TENDER Gender Identity Not on file Sexual Orientation Not on file documented as of this encounter Plan of Treatment Not on file documented as of this encounter Procedures Procedure Name Priority Date/Time Associated Diagnosis Comments CYTOLOGY 01/03/2018 12:00 AM DYE TANK TENDER documented in this encounter Results * CYTOLOGY (01/03/2018 12:00 AM DYE TANK TENDER) Narrative 01/03/2018 12:00 AM DYE TANK TENDER Ordered by an unspecified provider. Historical Provider LAB CYTOLOGY ORDERABLES F inal Result documented in this encounter Visit Diagnoses Not on filedocumented in this encounter Additional Health Concerns Infection Onset Date Last Indicated Resolved Time COVID: Suspected 09/27/2024 09/27/2024 09/27/2024 6:23 PM DYE TANK TENDER documented as of this encounter Care Teams Unmanned Aircraft Systems Roboticist Relationship Specialty Start Date End Date Iliana Gonzalez MD [address] [place] [address] PCP - General 03/30/17 12/17/24 Rm Broderick MD [address] [place] [address] PCP - General Family Medicine 12/18/24 documented as of this encounter
--- OUTSIDE RECORDS SUMMARY | 2025-08-01 17:37 | XMS_ITS | Clinical Summary ---
Author Organization [facility] Address [address] [place] [address] Care Team Providers Care Employment Manager Name Role Phone Maggy Collins Primary Care Provider [phone] Allergies Active Allergy Reactions Criticality Noted Date [...] (125 mcg total) by mouth daily. Active Social History Tobacco Use Types Packs/Day [...] 03/28/2025 7:30 AM CDT Plan of Treatment Upcoming Encounters Date Type Department Care Team (Late st Contact Info) Description 10/28/2025 8:20 AM GRIPPER INSTALLER Office Visit [facility] Multispecialty Care - [facility] [address] [facility], [address] [place] [address] Beltran Anderson MD [address] [place] [address] Health Maintenance Due Date Last Done Comments DTaP, Tdap and Td Vaccines ( 1 - Tdap) 1960 Pneumococcal Vaccine: 50+ Ye ars (1 of 1 - PCV) 1991 Zoster Vaccines (1 of 2) 1991 Annual Medicare Wellness Visit 2006 Dexa Scan (General) 2006 RSV Immunization or 60+ Years (1 - 1-dose 75+ series) 2016 COVID-19 Vaccine ( - 2023-2 5 season) 2025 Meningococcal B Vaccine Aged Out No l onger eligible based on patient's age to complete this topic Meningococcal Vaccine Aged Out No choco nathan eligible based on patient's age to complete this topic RSV Immunizations Under 20 Months Aged Out No longer eligible based on patient's age to complete this topic Medical Devices Implanted Type Area Cooker Helper Device Identifier Shelf Expiration Date Model / Serial / Lot Implant Urological Bulkamid Bulk Urethral Sterile Latex Free - [id number] Implanted:Qty: 1 on 03/28/2025 by Tomás Polanco MD at [facility] N/A: Urethra [id number] 07/07/2027 [id number] / / [id number] Insurance [employer] MEDICARE Care Teams Employment Manager Relationship Specialty Start Date End Date Maggy Collins PA [address] [place] [address] PCP - General PHYSICIAN CARPENTER/LABOR 03/28/25
--- OUTSIDE RECORDS SUMMARY | 2025-08-01 17:37 | XMS_ITS | Clinical Summary ---
Author Organization [facility] [employer] Address [address] [place] [address] Care Team Providers Care Analytical Chemist Name Role Phone Iliana Gonzalez MD Primary Care Provider + Source Comments [facility] [employer],non-owned Affiliates and Associated Physician Practices is amultiple site organization consisting of ambulatory clinics and hospital sitesin [place], [place] and [place]. This disclosure is being madepursuant to the Care Everywhere program and may not contain all information available regarding this patient. Last updated 18.[facility] [employer] Allergies Active Allergy Reactions Criticality Noted Date [...] on file Legal Sex Female 5:25 AM EMPLOYEE COMMUNICATIONS SPECIALIST Gender Identity Not on file Sexual Orientation Not on file Last Filed Vital Signs Vital Sign Reading Time Taken Comments Blood Pressure 120/78 10/30/2018 3:38 PM EMPLOYEE COMMUNICATIONS SPECIALIST Pulse - - Temperature 36.7 C (98 F) 10/30/2018 3:38 PM EMPLOYEE COMMUNICATIONS SPECIALIST Respiratory Rate 16 10/30/2018 3:38 PM EMPLOYEE COMMUNICATIONS SPECIALIST Oxygen Saturation 97% 10/30/2018 3:38 PM EMPLOYEE COMMUNICATIONS SPECIALIST Inhaled Oxygen Concentration - - Weight 72.6 kg (160 lb) 10/30/2018 3:38 PM EMPLOYEE COMMUNICATIONS SPECIALIST Height 171.5 cm (5' 7.5) 10/30/2018 3:38 PM EMPLOYEE COMMUNICATIONS SPECIALIST Body Mass Index 24.69 10/30/2018 3:38 PM EMPLOYEE COMMUNICATIONS SPECIALIST Plan of Treatment Health Maintenance Due Date Last Done Comments BONE DENSITY TESTING 1940 MEDICARE AWV 12 MONTHS 1940 DTAP/TDAP/TD VACCINES (1 - Tdap) 1960 PNEUMOCOCCAL VACCINE 50+ (1 of 1 - PCV) 1991 ZOSTER VACCINE (1 of 2) 1991 Respiratory Syncytial Virus (RSV) Vaccine Pt: or over 60 yrs (1 - 1-dose 75+ series) 2016 DEPRESSION SCREENING 11/07/2024 COVID-19 VACCINE (1 - 2023-2 5 season) 2025 INFLUENZA VACCINE (#1) 2025 HEPATITIS B VACCINE [...] fective for All Dates) Name:Izaiah Neha Member ID:[id number] Relation to Subscriber:Self Name:KelleyrosalvaEla cheungne Subscriber ID:[id number] Payer ID:Not on file Group ID:Not on file Type:Medicare Address: [place] [phone] MEDICARE SUPPLEMENT PAYOR GENERIC * Guarantor: PHIL BLISS Account Type Relation to Patient Date of Phone Billing Address Personal/Family [address] [place] [phone] MEDICARE MEDICARE SUPPLEMENT PAYOR GENERIC * Guarantor: PHIL BLISS Account Type Relation to Patient Date of Phone Billing Address Personal/Family [address] [place] [address] MEDICARE MEDICARE SUPPLEMENT PAYOR GENERIC * Guarantor: PHIL BLISS Account Type Relation to Patient Date of Phone Billing Address Personal/Family [address] [place] [phone] MEDICARE Member Subscriber Plan / Payer (Ef fective for All Dates) Name:Neha Bliss Member ID:[id number] Relation to Subscriber:Self Name:Neha Bliss Subscriber ID:[id number] Payer ID:Not on file Group ID:Not on file Type:Medicare Address: [place] [phone] MEDICARE SUPPLEMENT PAYOR GENERIC Care Teams Analytical Chemist Relationship Specialty Start Date End Date Iliana Gonzalez MD [address] [place] [address] PCP - General 02/25/21
== END 2025-08-01 15:35 | disposition home or self-care (01) ==
LOC: ANHFOHIMG 15:36
PROVIDERS: PCP Family Medicine; Visit Provider Internal Medicine Hematology & Oncology
DX: Z12.31 Encounter for screening mammogram for malignant neoplasm of breast (principal)
CPT/HCPCS: 77063; 77067

== ENCOUNTER 2025-10-15 09:06 | Outpatient (CLI) | payer MEDICARE, SELFPAY ==
[2025-10-15 09:47] LABS: Hematocrit 40.2 % (37.0-47.0); Hemoglobin 12.7 g/dL (12.0-15.0); Mean Corpuscular HGB Conc 31.6 g/dl (32-36); Mean Corpuscular Hemoglobin 30.1 pg (26-34); Mean Corpuscular Volume 95.3 fl (80-100); Platelet Count Result 234 k/mm3 (150-375); Red Blood Count 4.22 M/mm3 (4.2-5.4); White Blood Count 5.6 K/mm3 (4.5-10.0)
[2025-10-15 10:01] LABS: Anion Gap 0 mmol/L (4-12); Blood Urea Nitrogen 16 mg/dL (7-17); Calcium 9.7 mg/dL (8.4-10.2); Carbon Dioxide 30 mmol/L (22-30); Chloride 106 mmol/L (98-107); Estimated Glomerular Filt Rate > 60; Glucose 89 mg/dL (65-110); Iron 76 ug/dL (37-170); Potassium 3.6 mmol/L (3.4-5.0); Sodium 136 mmol/L (137-145)
[2025-10-15 10:10] LABS: Percent Iron Saturation 24 % (20-50)
[2025-10-15 10:42] LABS: Ferritin 17.80 ng/mL (11.1-264)
== END 2025-10-15 09:07 | disposition home or self-care (01) ==
LOC: ANHLAB 09:08
PROVIDERS: PCP Family Medicine; Visit Provider Internal Medicine Hematology & Oncology
DX: D64.9 Anemia, unspecified (principal); C50.912 Malignant neoplasm of unspecified site of left female breast; Z17.0 Estrogen receptor positive status [ER+]
CPT/HCPCS: 36415; 80048; 82728; 83540; 83550; 85027; 86300